=== PATIENT | male | born 1970 | race Caucasian/White ===

== ENCOUNTER 2022-03-08 07:54 | Outpatient (CLI) | payer MEDICARE, SELFPAY ==
--- NOTE | 2022-03-08 08:00 | RAD_ITS ---
PROCEDURE: Upper GI with Small Bowel Follow Through DATE OF EXAMINATION: 03/08/2022.. INDICATION: Male, 51 years old. Right-sided abdominal pain. History of ulcerations. FLUOROSCOPY TIME (if supplied): (0:34) minutes/seconds. 24 images were obtained. TECHNIQUE: Radiographic and fluoroscopic images of the distal esophagus, stomach, and entire small intestine were obtained following the oral ingestion of barium. COMPARISON: None. FINDINGS: The global climate change analyst film of the abdomen demonstrates a normal bowel gas pattern. There are no abnormal calcifications or organomegaly demonstrated. The visualized osseous structures are normal. The esophagus is unremarkable. No evidence of gastroesophageal reflux. No mass lesion is seen. A single contrast small bowel follow through exam demonstrates the small bowel to have no evidence for stricture, ulceration or mass. The transit time is normal at . RAD/Upper GI/w Small Bowel IMPRESSION: 1. Unremarkable upper GI and small bowel follow-through examination. Electronically Signed: Roni Soto MD at 15:33 EDT ,
== END 2022-03-08 23:59 | disposition home or self-care (01) ==
LOC: RAD 07:56
PROVIDERS: PCP Student in an Organized Health Care Education/Training Program; Referring Provider Nurse Practitioner; Visit Provider Nurse Practitioner
DX: R10.9 Unspecified abdominal pain (principal)
CPT/HCPCS: 74246; 74248

== ENCOUNTER 2023-05-15 06:24 | Day surgery (SDC) | payer MEDICARE, SELFPAY ==
[2023-05-15] VITALS (7 sets, daily range): BP systolic 89–133; BP diastolic 57–87; PULSE 60–68; RESP 18; TEMP 36.5–37.1; O2SAT 95–100; BMI 24.6
[2023-05-15] MEDS: Lactated Ringers 1,000 ML 15 ML IV (06:49)
--- NOTE | 2023-05-15 07:12 | PCM.HP.BLA ---
History and Physical Date of Admission: 05/15/23 52 M who presents to the office today referred by [facility] Pulmonology for GERD and dysphagia. He also reports chronic upper abd discomfort. He reports difficulty swallowing in 10/2022; feels like something gets caught in his throat. Doesn't occur with drinking, but does occur sometimes with eating, no particular foods. Doesn't vomit or regurgitate. He recalls an abnormality seen in stomach and esophagus on CT in 2021 at [facility]. Stomach issues began in 2019. He saw the BELLSTAND ATTENDANT in GI at [facility] Nadeem. Had EGD and colonoscopy in 12/2020, had stomach ulcers, was put on omeprazole (had been taken off it when he was treated for leukemia). Pt recalls being told the colonoscopy wasn't completed. EGD was repeated in 01/2021, he reports ulcers were improving. Another EGD in 2020 showed ulcers had healed. He reports no dysphagia when most recent EGD was done in 08/2022. But he was still having stomach upset; can feel almost like nausea; it is constant. The only relief he gets is from Mylanta. Even water can irritate stomach. No vomiting. Has early satiety. Gets bloated. Symptoms never resolved with treatment of PUD. Was only having a BM once a week. Mylanta helps with constipation too. Has BM 1-2x per day now, no straining, can be soft or sometimes diarrhea. 03/08/22 UGI with SBFT: normal 08/13/[address] Garcia at [facility]--normal esophagus, normal stomach, normal duodenum, no specimens collected Exam Const General: cooperative, healthy appearing and comfortable Nutritional Appearance: average body habitus Orientation: alert, awake and oriented x3 Eyes Sclera: sclerae normal Resp Effort & Inspection: normal respiratory effort GI Inspection: normal to inspection Palpation: soft, no hepatosplenomegaly, no masses and tender in the RUQ Neuro Gait: normal gait Psych Mood: congruent mood Quality Reporting Tobacco Screening ([facility] 138) Smoking Status: Current every day smoker Assessment and Plan Assessment and Plan (1) Epigastric abdominal pain: ?Status:?Chronic ?Plan: 52 yr old male with 5 mos of oropharyngeal/upper esophageal dysphagia and several years of upper abd discomfort/nausea. Only relief he gets is from Mylanta. He is on PPI. I will review CT images (he reports something was seen on esophagus and stomach in [address]), the reports from 202 EGDs and colonoscopy, gastric emptying study, labs. EGD to eval dysphagia, epigastric discomfort, office f/u after EGD. (2) Dysphagia: ?Status:?Chronic ?Plan: as above I have examined the patient and the H&P has been reviewed. There are no clinical changes since date of exam.
--- NOTE | 2023-05-15 07:30 | EGD_PTH ---
PATIENT: RUSSELL VICTORIA LOC: [facility] U#:[id number] AGE/SX: 52/M ROOM: RE05/15/[address]: Dr. Charly Parada DO : 1970 BED: DIS: 05/15/2023 SPEC #: [id number] RECD: 05/15/23 09:42 STATUS: DESIRE CAMILO #: [id number] DERRICK: 05/15/23 07:[address]: Charly Parada DEPT: SURGICAL PATHOLOGY RECD BY: Svitlana Cook ENTERED: 05/15/23 11:27 SP TYPE: EGD BIOPSY BERTHA DR: Dr. Noman Dean DO Tissues: A - Pylorus B - Duodenum, NOS Procedures: Surgery Specimen Level IV HEADER OPERATION: EGD ([facility]) with electrohemostasis and biopsies PRE-OP DIAGNOSIS: Epigastric abdominal pain, dysphagia TISSUE SUBMITTED: A ? Prepyloric ulcer biopsy, B ? Duodenum biopsy MICROSCOPIC DIAGNOSIS A. Prepyloric ulcer, biopsy: A fragment of gastric mucosa with focal ulceration and associated acute and chronic inflammation. B. Duodenum, biopsy: Fragments of duodenal mucosa, no pathologic diagnosis. LILI:christiana 05/16/2023 COMMENT A. The results of immunohistochemistry for Helicobacter pylori will be reported separately ([id number]). MICROSCOPIC DESCRIPTION Slides are reviewed. GROSS DESCRIPTION A - Received in fixative is one container labeled with the patient's name and designated prepyloric ulcer biopsy. The specimen consists of one irregular fragment of light william soft tissue that measures 0.3 x 0.3 x 0.1 cm. The specimen is totally submitted in one cassette. B - Received in fixative is one container labeled with the patient's name and designated duodenum biopsy. The specimen consists of two irregular fragments of light william soft tissue that in aggregate measure 0.8 x 0.4 x 0.1 cm. The specimen is totally submitted in one cassette. / LILI:christiana 05/15/2023 TC:2 [facility]: [id number] x2
--- NOTE | 2023-05-15 07:30 | IMM_PTH ---
PATIENT: RUSSELL VICTORIA LOC: [facility] U#:[id number] AGE/SX: 52/M ROOM: RE05/15/[address]: Dr. Charly Parada DO : 1970 BED: DIS: 05/15/2023 SPEC #: [id number] RECD: 05/15/23 12:18 STATUS: DESIRE REFrancheska #: [id number] DERRICK: 05/15/23 07:[address]: Charly Parada DEPT: IMMUNOHISTOCHEMISTRY RECD BY: Franchesca Campa ENTERED: 05/15/23 12:19 SP TYPE: IMMUNO OTHR DR: Dr. Noman Dean DO Tissues: A - Pyloric antrum Procedures: H Pylori (initial) PHYSICIAN & INSTITUTION [place] [id number] SPECIMEN INFORMATION: Tissue Source: A ? Prepyloric ulcer Clinical Info: Epigastric abdominal pain, dysphagia Specimen Number: [id number] CPT code: 62830 METHODOLOGY: Deparaffinized sections of prefer/formalin-fixed tissue or PAP/DQ stained slides are incubated with monoclonal/polyclonal antibodies/oligonucleotide probes. Localization is made via biotin free immunoperoxidase method. Appropriate controls are performed and reacted as expected. Results on target cell population are indicated in the following table: RESULTS: ANTIBODY / CLONE RESULT Block A H Pylori (polyclonal) negative These tests were developed and their performance characteristics determined by [facility]. They may not have been cleared or approved by the U.S. Food and Drug Administration. The FDA has determined that such clearance or approval is not necessary. The above immunohistochemical/dualISH markers are ordered and reviewed by the Pathologist. INTERPRETATION: A. Prepyloric ulcer, biopsy: Negative for Helicobacter pylori organisms. SJ:christiana 05/16/2023
--- NOTE | 2023-05-15 08:04 | OP.EGD_ITS ---
Patient Name: Otoniel Desai Procedure Date: 05/15/2023 7:33 AM Date of : 1970 Age: 52 Procedure: Upper GI endoscopy Indications: Epigastric abdominal pain, Dysphagia Providers: Charly Parada DO Referring MD: Charly Parada DO Patient Profile: This is a 52 year old male. Refer to note in patient chart for documentation of history and physical. Patient has symptoms. Complications: No immediate complications. Procedure: Pre-Anesthesia Assessment: - Prior to the procedure, a History and Physical was performed, and patient medications and allergies were reviewed. The risks and benefits of the procedure and the sedation options and risks were discussed with the patient. All questions were answered and informed consent was obtained. Patient identification and proposed procedure were verified by the physician. Mental Status Examination: normal. Prophylactic Antibiotics: The patient does not require prophylactic antibiotics. Prior Anticoagulants: The patient has taken no previous anticoagulant or antiplatelet agents. After reviewing the risks and benefits, the patient was deemed in satisfactory condition to undergo the procedure. The anesthesia plan was to use monitored anesthesia care (MAC). Immediately prior to administration of medications, the patient was re-assessed for adequacy to receive sedatives. The heart rate, respiratory rate, oxygen saturations, blood pressure, adequacy of pulmonary ventilation, and response to care were monitored throughout the procedure. The physical status of the patient was re-assessed after the procedure. After obtaining informed consent, the endoscope was passed under direct vision. Throughout the procedure, the patient's blood pressure, pulse, and oxygen saturations were monitored continuously. The gastroscope was introduced through the mouth, and advanced to the second part of duodenum. Scope In: 7:41:19 AM Scope Out: 7:49:26 AM Total Procedure Duration Time 0 hours 8 minutes 7 seconds Findings: One benign-appearing, intrinsic stenosis was found 20 to 21 cm from the incisors. This stenosis was moderately severe (circumferential scarring or stenosis; an endoscope may pass) and. The stenosis was traversed. A guidewire was placed and the scope was withdrawn. Dilation was performed with a Savary dilator with no resistance at 42 Fr. The dilation site was examined and showed moderate improvement in luminal narrowing. Estimated blood loss was minimal. Red blood was found in the gastric body. A few 5 mm bleeding angiodysplastic lesions were found in the cardia, in the gastric fundus and in the gastric body. Coagulation for hemostasis using monopolar probe was successful. Three oozing cratered gastric ulcers with pigmented material were found in the prepyloric region of the stomach. The largest lesion was 6 mm in largest dimension. Area was successfully injected with 5 mL of a 1:10,000 solution of epinephrine for drug delivery. Two non-bleeding cratered gastric ulcers with no stigmata of bleeding were found at the pylorus. The largest lesion was 5 mm in largest dimension. Biopsies were taken with a cold forceps for histology. Verification of patient identification for the specimen was done. Diffuse moderate inflammation characterized by erythema, friability and granularity was found in the duodenal bulb, in the first portion of the duodenum and in the second portion of the duodenum. Biopsies were taken with a cold forceps for histology. Verification of patient identification for the specimen was done. Estimated blood loss was minimal. Impression: - Benign-appearing esophageal stenosis. Dilated. - Red blood in the gastric body. - A few bleeding angiodysplastic lesions in the stomach. Treated with a monopolar probe. - Oozing gastric ulcers with pigmented material. Injected. - Non-bleeding gastric ulcers with no stigmata of bleeding. Biopsied. - Duodenitis. Biopsied. Recommendation: - Continue present medications. Procedure Code(s): --- Professional --- 69802, 59, Esophagogastroduodenoscopy, flexible, transoral; with control of bleeding, any method 85226, Esophagogastroduodenoscopy, flexible, transoral; with insertion of guide wire followed by passage of dilator(s) through esophagus over guide wire 28624, 59, Esophagogastroduodenoscopy, flexible, transoral; with directed submucosal injection(s), any substance 43528, 59,51, Esophagogastroduodenoscopy, flexible, transoral; with biopsy, single or multiple CPT copyright 2017 [employer]. All rights reserved. The codes documented in this report are preliminary and upon medical biller coder review may be revised to meet current compliance requirements. Charly Parada DO 05/15/2023 8:04:11 AM This report has been signed electronically. Number of Addenda: 0 Note Initiated On: 05/15/2023 7:33 AM
--- NOTE | 2023-05-15 08:05 | OP.CCLET_ITS ---
05/15/2023 Noman Dean [address] [place] [address] Re : Upper GI endoscopy procedure for Otoniel Desai Dear Dr. Dean This procedure was performed on May. My impressions and recommendations are as follows: Impressions : - Benign-appearing esophageal stenosis. Dilated. - Red blood in the gastric body. - A few bleeding angiodysplastic lesions in the stomach. Treated with a monopolar probe. - Oozing gastric ulcers with pigmented material. Injected. - Non-bleeding gastric ulcers with no stigmata of bleeding. Biopsied. - Duodenitis. Biopsied. Recommendations : - Continue present medications. My findings are described in the full procedure note, which is enclosed. If I can be of further assistance, please feel free to contact me at . Sincerely, Charly Parada, 05/15/2023 8:04:11 AM This report has been signed electronically.
[2023-05-15 09:48] LABS: Erythrocyte Sedimentation Rate 5 mm/hr (0-20)
[2023-05-15 09:49] LABS: International Normalized Ratio 0.9; Prothrombin Time (Protime)PT. 12.1 SECONDS (11.7-14.9)
[2023-05-15 09:50] LABS: Absolute Lymphocyte Count 4.03 X10^3/uL (0.83-4.51); Absolute Neutrophil Count 5.7 X10^3/uL (2.0-7.7); Basophil# 0.05 X10^3/uL; Basophil% 0.5 % (0-1); Eosinophils% 1.9 % (0-5); Hematocrit 47.1 % (40-54); Hemoglobin 14.7 g/dL (13.0-16.5); Lymphocyte # 4.03 X10^3/ul (0.83-4.51); Lymphocyte % 37.5 % (19-41); Mean Corp Hgb Conc 31.2 g/dL (32-36); Mean Corpuscular Hgb 28.7 pg (27.0-32.0); Mean Corpuscular Volume 91.8 fL (80-94); Monocyte# 0.67 X10^3/uL; Monocyte% 6.2 % (0-10); NRBC Flagged by Analyzer 0 % (0-5); Neutrophil # 5.72 X10^3/uL (2.7-7.7); Neutrophil % 53.2 % (47-70); Platelet Count 179 K/mm3 (150-450); RBC Distribution Width CV 14.8 % (11.6-14.6); RBC Distribution Width SD 50.2 fl (35.1-43.9); Red Blood Count 5.13 M/mm3 (4.6-6.2); White Blood Count 10.8 K/mm3 (4.4-11.0)
[2023-05-15 10:45] LABS: ALB/GLOB Ratio 1.2 RATIO (0.9-2.4); AST(SGOT) 23 U/L (15-37); Alanine Aminotransfer ALT/SGPT 28 U/L (16-61); Albumin, Serum 4.1 g/dL (3.2-5.0); Alkaline Phosphatase 94 U/L (45-117); Anion Gap 4 (5-15); BUN 15 mg/dL (7-18); BUN/Creat Ratio 12.6 RATIO (10-20); CPK Total, Creatine Kinase 125 U/L (39-308); CRP < 2.90 mg/L (0.0-3.0); Calcium,Total 9.3 mg/dL (8.5-10.1); Chloride 104 mmol/L (98-107); Creatinine, Serum 1.19 mg/dL (0.70-1.30); EST Glomerular Filtration Rate 68 mL/min (>60); Est Glom Filt Rate - Afr Amer 82 mL/min (>60); Estimated Creatinine Clearance 84.43 ml/min; Ferritin 46 ng/mL (26-388); Globulin 3.4 g/dL (2.2-4.2); Glucose 101 mg/dL (74-106); LDH 201 U/L (87-241); Potassium 4.7 mmol/L (3.5-5.1); Protein, Total 7.5 g/dL (6.4-8.2); Sodium Level 136 mmol/L (136-145)
[2023-05-15 10:59] LABS: HIV - WCH Non-Reactive (Nonreactive)
[2023-05-16 15:08] LABS: Endomysial Antibody IgA Negative (Negative); Immunoglobulin A 289 mg/dL (90-386); t-Transglutaminase IgA <2 U/mL (0-3)
[2023-05-19 18:07] LABS: Anti-Centromere B Ab <0.2 AI (0.0-0.9); Anti-Chromatin <0.2 AI (0.0-0.9); Anti-Jo <0.2 AI (0.0-0.9); Anti-Mitochondrial AB <20.0 Units (0.0-20.0); Anti-Scleroderma-70 AB <0.2 AI (0.0-0.9); Anti-dsDNA Ab 11 IU/mL (0-9); Beef <0.10 kU/L (Class 0); Chocolate <0.10 kU/L (Class 0); Clam <0.10 kU/L (Class 0); Codfish <0.10 kU/L (Class 0); Corn <0.10 kU/L (Class 0); Egg, White <0.10 kU/L (Class 0); Egg, Whole <0.10 kU/L (Class 0); Milk (Cow) <0.10 kU/L (Class 0); Peanut <0.10 kU/L (Class 0); Pork <0.10 kU/L (Class 0); RNP Ab <0.2 AI (0.0-0.9); SESAME SEED <0.10 kU/L (Class 0); SJOGREN'S Anti-SS-A test < 0.2 AI (0.0-0.9); SJOGREN'S Anti-SS-B test < 0.2 AI (0.0-0.9); Shrimp 0.41 kU/L (Class I); Smith Ab <0.2 AI (0.0-0.9); Soybean <0.10 kU/L (Class 0); Walnut, (Food) <0.10 kU/L (Class 0); Wheat <0.10 kU/L (Class 0)
[2023-05-19 21:07] LABS: Albumin 3.9 g/dL (2.9-4.4); Aldolase 4.7 U/L (3.3-10.3); Alpha-1-Globulins 0.3 g/dL (0.0-0.4); Alpha-2-Globulins 0.9 g/dL (0.4-1.0); Angiotensin Convert Enzyme 36 U/L (14-82); Anti-Smooth Muscle ABS 3 Units (0-19); Cytoplasmic Ab (C-ANCA) <1:20 titer (Neg:<1:20); Gamma Globulin 0.7 g/dL (0.4-1.8); Gastrin, Serum 94 pg/mL (0-115); HEPATITIS B SURFACE AG Negative (Negative); Hep C Antibodies Non Reactive (Non Reactive); Hepatitis A IgM Antibody Negative (Negative); Hepatitis B Core AB IgM Negative (Negative); Immunoglobulin A 296 mg/dL (90-386); Immunoglobulin E 38 IU/mL (6-495); Immunoglobulin G 502 mg/dL (603-1613); Immunoglobulin M 28 mg/dL (20-172); Perinuclear Ab (P-ANCA) 1:20 titer (Neg:<1:20)
== END 2023-05-15 08:55 | disposition home or self-care (01) ==
LOC: EN 06:24 → AC 06:25
PROVIDERS: PCP Student in an Organized Health Care Education/Training Program; Referring Provider Student in an Organized Health Care Education/Training Program; Visit Provider Internal Medicine Gastroenterology
PROC: 0DJ08ZZ Inspection of Upper Intestinal Tract, Via Natural or Artificial Opening Endoscopic (ICD-10-PCS; CPT 43235; principal; 2023-05-15 07:25)
DX: K31.811 Angiodysplasia of stomach and duodenum with bleeding (principal); M06.9 Rheumatoid arthritis, unspecified; K25.9 Gastric ulcer, unspecified as acute or chronic, without hemorrhage or perforation; R13.10 Dysphagia, unspecified; K29.80 Duodenitis without bleeding; K22.2 Esophageal obstruction; F17.200 Nicotine dependence, unspecified, uncomplicated; R10.13 Epigastric pain; R11.0 Nausea; Z85.6 Personal history of leukemia; Z92.241 Personal history of systemic steroid therapy; Z79.899 Other long term (current) drug therapy; K59.00 Constipation, unspecified; G89.29 Other chronic pain; I10 Essential (primary) hypertension
CPT/HCPCS: 43248; 43239; 43255; 36415; 80053; 80074; 82085; 82164; 82550; 82728; 82784; 82785; 82941; 83516; 83615; 84165; 85025; 85610; 85652; 86003; 86005; 86140; 86225; 86235; 86255; 86256; 86334; 86703; 88305; 88342; J7120; J2405

== ENCOUNTER → 2024-01-07 | Outpatient (CLI) | payer MEDICARE, SELFPAY ==
--- NOTE | 2024-01-07 12:41 | NM_ITS ---
CLINICAL: 53-year-old male with history of epigastric pain. SEMI-SOLID PHASE 99m Tc SULFUR COLLOID GASTRIC EMPTYING STUDY COMPARISON: None available FINDINGS: The patient was administered 1.0 mCi of 99m Tc sulfur colloid mixed with oatmeal and consumed per os. Image acquisitions in the anterior-posterior projections were obtained for 60 minutes. There is prompt visualization of the stomach. There is no gastroesophageal reflux identified. The T ? raw data emptying was calculated to be 43.84 minutes, (Normal: 12-56 minutes). NM/Gastric Emptying Study IMPRESSION: 1. NORMAL 99m Tc sulfur colloid semi-solid phase (oatmeal) gastric emptying imaging examination. A. There is normal and preserved semi-solid phase gastric emptying compared to normal controls. (Brain et al, J Nucl Med Tech 38: 186, 2010). Electronically Signed: Ulysses Pradhan DO at 9:29 EST ,
== END | disposition home or self-care (01) ==
LOC: NM 12:41
PROVIDERS: PCP Student in an Organized Health Care Education/Training Program; Referring Provider Internal Medicine Gastroenterology; Visit Provider Internal Medicine Gastroenterology
DX: R10.13 Epigastric pain (principal)
CPT/HCPCS: 78264; A9541

== ENCOUNTER 2024-01-12 06:40 | Day surgery (SDC) | payer MEDICARE, SELFPAY ==
--- OUTSIDE RECORDS SUMMARY | 2024-01-12 06:48 | XMS RPT_ITS | CCD ---
Author Name Unknown Address [id number] [place] [address] Organization [facility] Care Team Providers Care Laundry Housekeeping Aide Name Role Phone Noman Dean DO Primary Care Provider JERSEY COLE Admitting Unavailable JERSEY COLE Attending Unavailable DEAN, NOMAN Oliva Primary Care Unavailable TESTSHYANN CAPONE Admitting Unavailable TESTSHYANN CAPONE Attending Unavailable DEAN, NOMAN Hazel Primary Care Unavailable JERSEY COLE Admitting Unavailable JERSEY COLE Attending Unavailable DEAN, NOMAN Hazel Primary Care Unavailable Dean Noman AZEVEDO Primary Care Provider Florina AZEVEDO Otoniel A Unavailable Abigail CROSS, Harriett Arrieta Unavailable Doup RN, Ros Unavailable Unavailable Doup RN, Ros Unavailable Unavailable DEAN, NOMAN L Primary Care Unavailable DEAN, NOMAN L Attending Unavailable DEAN, NOMAN L Primary Care Unavailable DEAN, NOMAN L Referring Unavailable DEAN, NOMAN L Primary Care Unavailable DEAN, NOMAN L Referring Unavailable MASCI, OTONIEL A Attending Unavailable MARIAI, OTONIEL A Referring Unavailable DEAN, NOMAN L Primary Care Unavailable DEAN, NOMAN L Primary Care Unavailable DEAN, NOMAN L Referring Unavailable DEAN, NOMAN L Primary Care Unavailable DEAN, NOMAN L Referring Unavailable ANDREY ART Referring Unavailable DEAN, NOMAN L Primary Care Unavailable MASCI, OTONIEL A Attending Unavailable MASCI, OTONIEL A Referring Unavailable DEAN, NOMAN L Primary Care Unavailable DEAN, NOMAN L Primary Care Unavailable DEAN, NOMAN L Referring Unavailable DEAN, NOMAN L Primary Care Unavailable DEAN, NOMAN L Attending Unavailable MARIAI, OTONIEL A Referring Unavailable DEAN, NOMAN L Primary Care Unavailable MASCI, OTONIEL A Referring Unavailable DEAN, NOMAN L Primary Care Unavailable MASCI, OTONIEL A Attending Unavailable MASCI, OTONIEL A Referring Unavailable DEAN, NOMAN L Primary Care Unavailable ANDREY ART Attending Unavailable DEAN, NOMAN L Primary Care Unavailable MASCI, OTONIEL A Referring Unavailable DEAN, NOMAN L Primary Care Unavailable MASCI, OTONIEL A Referring Unavailable DEAN, NOMAN L Primary Care Unavailable MASCI, OTONIEL A Referring Unavailable DEAN, NOMAN L Primary Care Unavailable MASCI, OTONIEL A Referring Unavailable MASCI, OTONIEL A Attending Unavailable DEAN, NOMAN L Primary Care Unavailable ONDINA ARBOLEDA Referring Unavailable ONDINA ARBOLEDA Attending Unavailable DEAN, NOMAN L Primary Care Unavailable DEAN, NOMAN L Primary Care Unavailable MCKENNA GARCIA Referring Unavailable MASCI, OTONIEL A Referring Unavailable DEAN, NOMAN L Primary Care Unavailable DEAN, NOMAN L Primary Care Unavailable MASCI, OTONIEL A Referring Unavailable DEAN, NOMAN L Primary Care Unavailable ANDREY ART Referring Unavailable DEAN, NOMAN L Primary Care Unavailable KNOBLE, ANDREY Referring Unavailable DEAN, NOMAN L Primary Care Unavailable DEAN, NOMAN L Attending Unavailable DEAN, NOMAN L Primary Care Unavailable MASCI, OTONIEL A Referring Unavailable DEAN, NOMAN L Primary Care Unavailable Allergies Allergy Classification Reported Allergen(s) Allergy Type Date of Onset Reaction(s) Facility (20 sources) Aspirin; Translations: [ASPIRIN] Drug Allergy 3 GI Upset [facility] (20 sources) Penicillins; Translations: [PENICILLINS] Drug Allergy 5 [facility] (20 sources) Pollen; Translations: [POLLEN] Allergy to substance 4 Itching [facility] (20 sources) topiramate; Translations: [TOPIRAMATE] Drug Allergy 2 Other: See Comments [facility] (20 sources) Penicillins Drug Allergy 5 [facility] (20 sources) Shellfish; Translations: [SHELLFISH DERIVED] Propensity to adverse reactions to drug 3 Unknown [facility] Medications Current Medications Medication Drug Class(es) Dates Sig (Normalized) Sig (Original) acetaminophen 325 mg / HYDROcodone bitartrate 5 mg oral tablet (20 sources) Opioid Agonist Start: 08-27-2023 End: 01-23-2024 take 1 tablet by mouth twice daily as needed for pain HYDROcodone-aceta minophen (NORCO) 5-325 mg per tablet Indications: Multiple sclerosis (HCC) , Bilateral leg pain Take 1 tablet by mouth two times a day as needed for pain for up to 30 days. Do not start before December 24, 2023. 60 tablet 0 12/24/2023 01/23/2024 Active Completed/Discontinued Medications Medication Drug Class(es) Dates Sig (Normalized) Sig (Original) [id number] 200 actuat albuterol 0.09 mg/actuat metered dose inhaler (20 sources) beta2-Adrenergic Agonist Start: 11-21-2023 take 2 puff(s) by inhalation every four hours as needed for wheezing albuterol HFA (VENTOLIN HFA) 90 mcg/actuation inhaler Indications: Stage 2 moderate COPD by GOLD classification ([facility]) INHALE 2 PUFFS INSTRUCTED EVERY FOUR HOURS NEEDED FOR WHEEZING / SHORTNESS OF BREATH 18 g 11 11/21/2023 Active Problems Active Problems Problem Classification Problem Date Documented Da te Episodic/Chronic Aortic; peripheral; and visceral artery aneurysms (20 sources) Distention of artery; 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] Onset: 2 02-04-2022 Chronic Blindness and vision defects (4 sources) Bilateral myopia of eyes; Translations: [Myopia, bilateral] Episodic Chronic obstructive pulmonary disease and bronchiectasis (20 sources) Chronic obstructive lung disease; Translations: [Chronic obstructive pulmonary disease, unspecified] Onset: 9 04-19-2019 Chronic Coagulation and hemorrhagic disorders (2 sources) Spontaneous bruising; Translations: [Spontaneous ecchymoses] Episodic Disorders of lipid metabolism (20 sources) Hyperlipidemia; Translations: [Other hyperlipidemia] Onset: 8 01-07-2018 Chronic Disorders usually diagnosed in infancy, childhood, or adolescence (20 sources) Attention deficit hyperactivity disorder, predominantly inattentive type; Translations: [Other specified behavioral and emotional disorders with onset usually occurring in childhood and adolescence] Onset: 8 01-07-2018 Chronic Esophageal disorders (20 sources) Gastroesophageal reflux disease without esophagitis; Translations: [Gastro-esophageal reflux disease without esophagitis] Onset: 8 01-07-2018 Chronic Essential hypertension (20 sources) Benign essential hypertension; Translations: [Essential (primary) hypertension] Onset: 2 02-04-2022 Chronic Gastroduodenal ulcer (except hemorrhage) (4 sources) H/O: peptic ulcer; Translations: [Personal history of peptic ulcer disease] Episodic Genitourinary symptoms and ill-defined conditions (20 sources) Intermittent urinary incontinence; Translations: [Unspecified urinary incontinence] Onset: 4 03-02-2014 Chronic Headache; including migraine (20 sources) Migraine; Translations: [Migraine, unspecified, not intractable, without status migrainosus] Onset: 3 02-05-2013 Chronic Immunity disorders (20 sources) Patient immunocompromised; Translations: [Immunodeficiency, unspecified] Onset: 3 Chronic Immunizations and screening for infectious disease (2 sources) Needs influenza immunization; Translations: [Encounter for immunization] Episodic Leukemias (20 sources) Chronic myeloid leukemia; Translations: [Chronic myeloid leukemia, BCR/ABL-positive, not having achieved remission] Onset: 5 02-13-2015 Chronic Mood disorders (20 sources) Bipolar affective disorder, current episode mixed; Translations: [Bipolar disorder, current episode mixed, unspecified] Onset: 8 01-07-2018 Chronic Multiple myeloma (6 sources) Multiple myeloma; Translations: [Multiple myeloma not having achieved remission] Onset: 3 10-10-2023 Chronic Multiple sclerosis (20 sources) Multiple sclerosis; Translations: [Multiple sclerosis] Onset: 6 02-04-2022 Chronic Neoplasms of unspecified nature or uncertain behavior (20 sources) Monoclonal gammopathy of uncertain significance; Translations: [Monoclonal gammopathy] Onset: 5 02-13-2015 Chronic Nutritional deficiencies (20 sources) Vitamin D deficiency; Translations: [Vitamin D deficiency, unspecified] Onset: 9 04-19-2019 Chronic Open wounds of extremities (1 source) Open wound of toe; Translations: [Unspecified open wound of unspecified toe(s) without damage to nail, initial encounter] Episodic Osteoarthritis (20 sources) Arthritis of left knee; Translations: [Unilateral primary osteoarthritis, left knee] Onset: 2 02-13-2022 Chronic Other and unspecified benign neoplasm (1 source) Benign neoplasm of skin of back; Translations: [Melanocytic nevi of trunk] Episodic Other and unspecified benign neoplasm (3 sources) Dysplastic nevus of trunk; Translations: [Melanocytic nevi of trunk] Episodic Other and unspecified benign neoplasm (1 source) Dysplastic nevus of skin; Translations: [Melanocytic nevi of trunk] Episodic Other and unspecified benign neoplasm (1 source) Melanocytic nevus of trunk; Translations: [Melanocytic nevi of trunk] Episodic Other circulatory disease (1 source) Carotid bruit; Translations: [Other specified symptoms and signs involving the circulatory and respiratory systems] Episodic Other connective tissue disease (1 source) Lateral epicondylitis of left humerus; Translations: [Lateral epicondylitis, left elbow] Episodic Other connective tissue disease (1 source) Radial styloid tenosynovitis; Translations: [Radial styloid tenosynovitis [de Quervain]] Episodic Other connective tissue disease (2 sources) Lateral epicondylitis of right humerus; Translations: [Lateral epicondylitis, right elbow] Episodic Other connective tissue disease (1 source) Lateral epicondylitis, right elbow; Translations: [Right lateral epicondylitis] Onset: 2 Episodic Other connective tissue disease (1 source) Lateral epicondylitis, left elbow; Translations: [Lateral epicondylitis of left elbow] Onset: 2 Episodic Other diseases of bladder and urethra (20 sources) Overactive bladder; Translations: [Overactive bladder] Onset: 2 10-23-2022 Chronic Other eye disorders (2 sources) Meibomian gland dysfunction of bilateral eyes; Translations: [Meibomian gland dysfunction right eye, upper and lower eyelids] Episodic Other gastrointestinal disorders (3 sources) Chronic idiopathic constipation; Translations: [Chronic idiopathic constipation] Chronic Other gastrointestinal disorders (1 source) Dysphagia; Translations: [Dysphagia, unspecified] Episodic Other hereditary and degenerative nervous system conditions (20 sources) Restless legs; Translations: [Restless legs syndrome] Onset: 9 04-19-2019 Chronic Other liver diseases (20 sources) Steatosis of liver; Translations: [Fatty (change of) liver, not elsewhere classified] Onset: 2 12-18-2011 Chronic Other lower respiratory disease (2 sources) Wheezing; Translations: [Wheezing] Episodic Other lower respiratory disease (1 source) Dyspnea; Translations: [Dyspnea, unspecified] Episodic Other lower respiratory disease (4 sources) Imaging of lung abnormal ; Translations: [Other nonspecific abnormal finding of lung field] Episodic Other lower respiratory disease (1 source) Tachypnea; Translations: [Tachypnea, not elsewhere classified] 06-26-2023 Episodic Other lower respiratory disease (5 sources) Dyspnea on exertion; Translations: [Other forms of dyspnea] Onset: 3 10-10-2023 Episodic Other male genital disorders (20 sources) Male erectile dysfunction, unspecified; Translations: [Impotence of organic origin] Onset: 0 07-04-2010 Chronic Other nervous system disorders (6 sources) Impairment of balance; Translations: [Other abnormalities of gait and mobility] Onset: 3 Episodic Other nervous system disorders (1 source) Other abnormalities of gait and mobility; Translations: [Balance disorder] Onset: 3 Episodic Other non-traumatic joint disorders (2 sources) Chronic pain of left upper limb; Translations: [Pain in left elbow] Episodic Other non-traumatic joint disorders (1 source) Pain in elbow; Translations: [Pain in left elbow] Episodic Other non-traumatic joint disorders (1 source) Chronic pain of right upper limb; Translations: [Pain in right elbow] Episodic Other nutritional; endocrine; and metabolic disorders (1 source) Hypercalcemia; Translations: [Hypercalcemia] 06-17-2023 Chronic Other nutritional; endocrine; and metabolic disorders (1 source) Hypercalcemia; Translations: [Hypercalcemia] Onset: 3 Chronic Peripheral and visceral atherosclerosis (20 sources) Peripheral vascular disease, unspecified; Translations: [Peripheral vascular disease, unspecified] Onset: 2 Chronic Residual codes; unclassified (20 sources) Idiopathic hypersomnia; 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] Onset: 5 03-15-2015 Chronic Residual codes; unclassified (1 source) Tobacco user; Translations: [Tobacco use] Episodic Residual codes; unclassified (1 source) Did not attend; Translations: [No-show for appointment] Episodic Schizophrenia and other psychotic disorders (20 sources) Schizophrenia; Translations: [Schizophrenia, unspecified] Onset: 2 02-04-2022 Chronic Spondylosis; intervertebral disc disorders; other back problems (2 sources) Neck pain; Translations: [Cervicalgia] Episodic Thyroid disorders (6 sources) Acquired hypothyroidism; Translations: [Hypothyroidism, unspecified] Onset: 3 10-10-2023 Chronic Past or Other Problems Problem Classification Problem Date Documented Da te Episodic/Chronic Abdominal pain (20 sources) Generalized abdominal pain; Translations: [Generalized abdominal pain] Onset: 01-07-2018 01-07-2018 Episodic Administrative/social admission (20 sources) Drug therapy finding; Translations: [Encounter for other administrative examinations] Onset: 01-19-2020 01-19-2020 Episodic Allergic reactions (20 sources) Hand eczema; Translations: [Dermatitis, unspecified] Onset: 02-05-2013 02-05-2013 Episodic Cardiac dysrhythmias (20 sources) Tachycardia; Translations: [Tachycardia, unspecified] Onset: 04-10-2007 04-10-2007 Episodic Diabetes mellitus without complication (2 sources) Hyperglycemia; Translations: [Hyperglycemia, unspecified] Onset: 06-18-2023 Episodic Malaise and fatigue (9 sources) Fatigue; Translations: [Other fatigue] Onset: 10-06-2023 Episodic Mycoses (20 sources) Onychomycosis; Translations: [Tinea unguium] Onset: 02-04-2022 02-04-2022 Episodic Nonspecific chest pain (10 sources) Chest pain; Translations: [Chest pain, unspecified] Onset: 06-26-2023 Episodic Nutritional deficiencies (20 sources) Cobalamin deficiency; Translations: [Deficiency of other specified B group vitamins] Onset: 08-14-2022 Episodic Other and unspecified benign neoplasm (20 sources) History of polyp of colon; Translations: [Personal history of colonic polyps] Onset: 08-05-2018 08-05-2018 Episodic Other bone disease and musculoskeletal deformities (20 sources) Disorder of bone; Translations: [Other specified disorders of bone density and structure, multiple sites] Onset: 08-14-2022 Episodic Other connective tissue disease (20 sources) Olecranon bursitis; Translations: [Olecranon bursitis, unspecified elbow] Onset: 06-27-2015 06-27-2015 Episodic Other connective tissue disease (20 sources) Pain in bilateral legs; Translations: [Pain in right leg] Onset: 01-07-2018 01-07-2018 Episodic Other connective tissue disease (20 sources) Lateral epicondylitis of bilateral humerus; Translations: [Lateral epicondylitis, right elbow] Onset: 02-13-2022 02-13-2022 Episodic Other connective tissue disease (20 sources) Suprapatellar bursitis of left knee; Translations: [Other bursitis of knee, left knee] Onset: 02-13-2022 02-13-2022 Episodic Other connective tissue disease (1 source) Pain in right leg; Translations: [Bilateral leg pain] Onset: 01-07-2018 Episodic Other connective tissue disease (1 source) Pain in left leg; Translations: [Bilateral leg pain] Onset: 01-07-2018 Episodic Other gastrointestinal disorders (20 sources) Splenomegaly; Translations: [Splenomegaly, not elsewhere classified] Onset: 12-30-2020 12-30-2020 Episodic Other lower respiratory disease (1 source) Other forms of dyspnea; Translations: [KNOX (dyspnea on exertion)] Onset: 10-06-2023 Episodic Other lower respiratory disease (1 source) Tachypnea, not elsewhere classified; Translations: [Tachypnea] Onset: 06-26-2023 Episodic Other non-traumatic joint disorders (20 sources) Bilateral elbow joint pain; Translations: [Pain in right elbow] Onset: 02-13-2022 Episodic Other non-traumatic joint disorders (20 sources) Pain in left knee; Translations: [Pain in joint, lower leg] Onset: 04-18-2016 02-13-2022 Episodic Other screening for suspected conditions (not mental disorders or infectious disease) (6 sources) Patient encounter status; Translations: [Encounter for screening for cardiovascular disorders] Onset: 06-23-2023 Episodic Residual codes; unclassified (20 sources) Family history of prostate cancer; Translations: [Family history of malignant neoplasm of prostate] Onset: 02-05-2013 02-05-2013 Episodic Residual codes; unclassified (20 sources) Tobacco use and exposure - finding; Translations: [Tobacco use] Onset: 07-18-2015 07-18-2015 Episodic Skin and subcutaneous tissue infections (20 sources) Disorder of nail; Translations: [Cellulitis of unspecified toe] Onset: 04-16-2012 04-16-2012 Episodic Results Test Name Value Interpretation Reference Range Facil ity Vital Signs Date Time Vital Sign Value Performing Clinician Doretha leal 11-05-2023 09:57-0500 Body temperature 98.2 [degF] Noman Dean DO Work Phone: [facility] 11-05-2023 09:57-0500 Body weight 89.81 kg Noman Dean DO Work Phone: [facility] 11-05-2023 09:57-0500 Diastolic blood pressure 70 mm[Hg] Noman Dean DO Work Phone: [facility] 11-05-2023 09:57-0500 Heart rate 76 /min Noman Dean DO Work Phone: [facility] 11-05-2023 09:57-0500 Respiratory rate 16 /min Noman Dean DO Work Phone: [facility] 11-05-2023 09:57-0500 Systolic blood pressure 110 mm[Hg] Noman Dean DO Work Phone: [facility] 09-18-2023 11:54-0400 Body temperature 98.29 [degF] Otoniel Masci DO Work Phone: [facility] 09-18-2023 11:54-0400 Body weight 93.89 kg Otoniel Masci DO Work Phone: [facility] 09-18-2023 11:54-0400 Diastolic blood pressure 82 mm[Hg] Otoniel Masci DO Work Phone: [facility] 09-18-2023 11:54-0400 Heart rate 68 /min Otoniel Masci DO Work Phone: [facility] 09-18-2023 11:54-0400 SaO2% (BldA) [Mass fraction] 98 % Otoniel Masci DO Work Phone: [facility] 09-18-2023 11:54-0400 Systolic blood pressure 135 mm[Hg] Otoniel Masci DO Work Phone: [facility] 06-26-2023 15:07-0400 Body weight 89.81 kg Andrey Art DIE CUTTING MACHINE OPERATOR.SANDWICH COUNTER ATTENDANT Work Phone: [facility] 06-26-2023 15:07-0400 Diastolic blood pressure 66 mm[Hg] Andrey Art DIE CUTTING MACHINE OPERATOR.SANDWICH COUNTER ATTENDANT Work Phone: [facility] 06-26-2023 15:07-0400 Heart rate 74 /min Andrey Art DIE CUTTING MACHINE OPERATOR.SANDWICH COUNTER ATTENDANT Work Phone: [facility] 06-26-2023 15:07-0400 Respiratory rate 16 /min Andrey Art DIE CUTTING MACHINE OPERATOR.SANDWICH COUNTER ATTENDANT Work Phone: [facility] 06-26-2023 15:07-0400 Systolic blood pressure 120 mm[Hg] Andrey Art DIE CUTTING MACHINE OPERATOR.SANDWICH COUNTER ATTENDANT Work Phone: [facility] 03-28-2023 08:55-0400 Body temperature 96.49 [degF] Noman Dean DO Work Phone: [facility] 03-28-2023 08:55-0400 Body weight 90.27 kg Noman Dean DO Work Phone: [facility] 03-28-2023 08:55-0400 Diastolic blood pressure 60 mm[Hg] Noman Dean DO Work Phone: [facility] 03-28-2023 08:55-0400 Heart rate 76 /min Noman Dean DO Work Phone: [facility] 03-28-2023 08:55-0400 Respiratory rate 16 /min Noman Dean DO Work Phone: [facility] 03-28-2023 08:55-0400 Systolic blood pressure 110 mm[Hg] Nmoan Dean DO Work Phone: [facility] 03-24-2023 09:38-0400 Body height 183.3 cm Otoniel Masci DO Work Phone: [facility] 03-24-2023 09:38-0400 Body weight 90.49 kg Otoniel Masci DO Work Phone: [facility] 03-24-2023 09:38-0400 Diastolic blood pressure 69 mm[Hg] Otoniel Masci DO Work Phone: [facility] 03-24-2023 09:38-0400 Heart rate 67 /min Otoniel Masci DO Work Phone: [facility] 03-24-2023 09:38-0400 SaO2% (BldA) [Mass fraction] 99 % Otoniel Masci DO Work Phone: [facility] 03-24-2023 09:38-0400 Systolic blood pressure 111 mm[Hg] Otoniel Masci DO Work Phone: [facility] 01-03-2023 13:42-0500 Body height 188 cm Pulm Wstr Work Phone: [facility] 01-03-2023 13:42-0500 Body weight 90.72 kg Pulm Wstr Work Phone: [facility] 12-31-2022 08:28-0500 Body temperature 98.01 [degF] Noman Dean DO Work Phone: [facility] 12-31-2022 08:28-0500 Body weight 89.81 kg Noman Dean DO Work Phone: [facility] 12-31-2022 08:28-0500 Diastolic blood pressure 80 mm[Hg] Noman Dean DO Work Phone: [facility] 12-31-2022 08:28-0500 Heart rate 64 /min Noman Dean DO Work Phone: [facility] 12-31-2022 08:28-0500 Respiratory rate 16 /min Noman Dean DO Work Phone: [facility] 12-31-2022 08:28-0500 Systolic blood pressure 120 mm[Hg] Noman Dean DO Work Phone: [facility] 12-25-2022 14:59-0500 Body weight 89.36 kg Harriett Hayes PA-C Work Phone: [facility] 12-25-2022 14:59-0500 Diastolic blood pressure 60 mm[Hg] Harriett Abigail PA-C Work Phone: [facility] 12-25-2022 14:59-0500 Heart rate 67 /min Harriett Abigail PA-C Work Phone: [facility] 12-25-2022 14:59-0500 Respiratory rate 18 /min Harriett Abigail PA-C Work Phone: [facility] 12-25-2022 14:59-0500 SaO2% (BldA) [Mass fraction] 97 % Harriett Abigail PA-C Work Phone: [facility] 12-25-2022 14:59-0500 Systolic blood pressure 100 mm[Hg] Harriett Abigail PA-C Work Phone: [facility] 11-12-2022 08:55-0500 Body temperature 98.6 [degF] Noman Dean DO Work Phone: [facility] 11-12-2022 08:55-0500 Body weight 89.36 kg Noman Dean DO Work Phone: [facility] 11-12-2022 08:55-0500 Diastolic blood pressure 60 mm[Hg] Noman Dean DO Work Phone: [facility] 11-12-2022 08:55-0500 Heart rate 80 /min Noman Dean DO Work Phone: [facility] 11-12-2022 08:55-0500 Respiratory rate 16 /min Noman Dean DO Work Phone: [facility] 11-12-2022 08:55-0500 Systolic blood pressure 100 mm[Hg] Noman Dean DO Work Phone: [facility] 09-16-2022 15:14-0400 Body temperature 98.01 [degF] Otoniel Masci DO Work Phone: [facility] 09-16-2022 15:14-0400 Body weight 88 kg Otoniel Masci DO Work Phone: [facility] 09-16-2022 15:14-0400 Diastolic blood pressure 80 mm[Hg] Otoniel Heaton DO Work Phone: [facility] 09-16-2022 15:14-0400 Heart rate 62 /min Otoniel Heaton DO Work Phone: [facility] 09-16-2022 15:14-0400 Systolic blood pressure 123 mm[Hg] Otoniel Heaton DO Work Phone: [facility] 08-13-2022 17:30-0400 Diastolic blood pressure 52 mm[Hg] Trenton Garcia MD Work Phone: [facility] 08-13-2022 17:30-0400 Heart rate 63 /min Trenton Garcia MD Work Phone: [facility] 08-13-2022 17:30-0400 Respiratory rate 16 /min Trenton Garcia MD Work Phone: [facility] 08-13-2022 17:30-0400 SaO2% (BldA) [Mass fraction] 99 % Trenton Garcia MD Work Phone: [facility] 08-13-2022 17:30-0400 Systolic blood pressure 105 mm[Hg] Trenton Garcia MD Work Phone: [facility] 08-13-2022 17:16-0400 Body temperature 97.5 [degF] Trenton Garcia MD Work Phone: [facility] 08-13-2022 16:35-0400 Body height 188 cm Trenton Garcia MD Work Phone: [facility] 08-13-2022 16:35-0400 Body weight 83.92 kg Trenton Garcia MD Work Phone: [facility] 08-13-2022 08:34-0400 Body temperature 97 [degF] Noman Dean DO Work Phone: [facility] 08-13-2022 08:34-0400 Body weight 84.82 kg Noman Dean DO Work Phone: [facility] 08-13-2022 08:34-0400 Diastolic blood pressure 80 mm[Hg] Noman Dean DO Work Phone: [facility] 08-13-2022 08:34-0400 Heart rate 68 /min Noman Dean DO Work Phone: [facility] 08-13-2022 08:34-0400 Respiratory rate 16 /min Noman Dean DO Work Phone: [facility] 08-13-2022 08:34-0400 Systolic blood pressure 120 mm[Hg] Noman Dean DO Work Phone: [facility] 05-22-2022 10:27-0400 Body temperature 98.8 [degF] Otoniel Masci DO Work Phone: [facility] 05-22-2022 10:27-0400 Body weight 82.56 kg Otoniel Masci DO Work Phone: [facility] 05-22-2022 10:27-0400 Diastolic blood pressure 69 mm[Hg] Otoniel Masci DO Work Phone: [facility] 05-22-2022 10:27-0400 Heart rate 70 /min Otoniel Masci DO Work Phone: [facility] 05-22-2022 10:27-0400 SaO2% (BldA) [Mass fraction] 98 % Otoniel Masci DO Work Phone: [facility] 05-22-2022 10:27-0400 Systolic blood pressure 121 mm[Hg] Otoniel Masci DO Work Phone: [facility] 05-21-2022 11:33-0400 Body weight 82.56 kg Ny Rodriguez DIE CUTTING MACHINE OPERATOR.SANDWICH COUNTER ATTENDANT Work Phone: [facility] 05-21-2022 11:33-0400 Diastolic blood pressure 70 mm[Hg] Ny Rodriguez DIE CUTTING MACHINE OPERATOR.SANDWICH COUNTER ATTENDANT Work Phone: [facility] 05-21-2022 11:33-0400 Heart rate 76 /min Ny Rodriguez DIE CUTTING MACHINE OPERATOR.SANDWICH COUNTER ATTENDANT Work Phone: [facility] 05-21-2022 11:33-0400 SaO2% (BldA) [Mass fraction] 98 % Ny Rodriguez DIE CUTTING MACHINE OPERATOR.SANDWICH COUNTER ATTENDANT Work Phone: [facility] 05-21-2022 11:33-0400 Systolic blood pressure 120 mm[Hg] Nysly Rodriguez DIE CUTTING MACHINE OPERATOR.SANDWICH COUNTER ATTENDANT Work Phone: [facility] 05-13-2022 13:30-0400 Body temperature 98.4 [degF] Noman Dean DO Work Phone: [facility] 05-13-2022 13:30-0400 Body weight 81.19 kg Noman Dean DO Work Phone: [facility] 05-13-2022 13:30-0400 Diastolic blood pressure 70 mm[Hg] Noman Dean DO Work Phone: [facility] 05-13-2022 13:30-0400 Heart rate 80 /min Noman Dean DO Work Phone: [facility] 05-13-2022 13:30-0400 Respiratory rate 16 /min Noman Dean DO Work Phone: [facility] 05-13-2022 13:30-0400 Systolic blood pressure 130 mm[Hg] Noman Dean DO Work Phone: [facility] Encounters Encounter Date Encounter Type Care Provider Facility Start: 01-02-2024 [facility] Procedures Date Procedure Procedure Detail Performing Clinician Start: 06-18-2023 Lipid 1996 [facility]-18-[facility]23 BRAIN & CERVICAL SPI NE MRI DISCRETE DATA [facility] Provider Start: 03-18-2023 Mri brain brain stem w/o w/contrast material Mckenna Garcia PA-C Work Phone: Start: 11-18-2022 Ct thorax w/o contra st material Noman Oliva Dean DO Work Phone: Start: 09-02-2022 Dxa bone density yumiko dy 1/> sites axial skel Noman Oliva Dean DO Work Phone: Start: 08-13-2022 Esophagoscp rig lopez soral hypopharynx crv esoph Ny Rodriguez DIE CUTTING MACHINE OPERATOR.SANDWICH COUNTER ATTENDANT Work Phone: Start: 08-13-2022 INFLUENZA VACCINE QUADRIVALENT 6 MO - 64 YRS IM Noman Dean DO Work Phone: Start: 07-25-2022 Computerized ophthal sindy imaging retina Ondina Arboleda OD Work Phone: Start: 06-07-2022 Adult depression scr eening assessment Noman Dean DO Work Phone: Start: 05-20-2022 Adult depression scr eening assessment Ny Rodriguez DIE CUTTING MACHINE OPERATOR.SANDWICH COUNTER ATTENDANT Work Phone: Start: 05-17-2022 Radiologic exam ches t 2 views Otoniel Heaton DO Work Phone: Start: 05-14-2022 Ct soft tissue neck w/o contrast material Noman Dean DO Work Phone: Start: 04-15-2022 BRAIN & CERVICAL SPI NE MRI DISCRETE DATA [facility] Provider Start: 04-15-2022 Mri brain brain stem w/o w/contrast material Mckenna Garcia PA-C Work Phone: Start: 04-13-2022 Adult depression scr eening assessment Mri (I-Stat/3t) Work Phone: Start: 04-08-2022 Myocardial spect mul tiple studies Noman Dean DO Work Phone: Start: 04-04-2022 Injection single ten don origin/insertion Jersey Cole MD Work Phone: Start: 04-02-2022 Radex elbow 2 views Bra ganesh Cole MD Work Phone: Start: 02-13-2022 Adult depression scr eening assessment Jersey Cole MD Work Phone: Start: 12-26-2020 Joleen chapman MD Work Phone: Plan of Treatment Date Care Activity Detail Author Start: 2035 PNEUMOCOCCAL (4 - PPSV23 if available, else PCV20) PNEUMOCOCCAL (4 - PPSV23 if available, else PCV20) [facility] Start: 2035 PNEUMOCOCCAL (4 - PPSV23 or PCV20) PNEUMOCOCCAL (4 - PPSV23 or PCV20) [facility] Start: 2035 Pneumococcal vaccination [facility] Start: 06-18-2028 Lipid 1996 panel - Serum or Plasma Lipid Screening [facility] Start: 06-18-2028 Lipid panel Lipid Screening [facility] Start: 06-18-2028 LIPID SCREEN LIPID SCREEN [facility] Start: 01-23-2027 LIPID SCREEN LIPID SCREEN [facility] Start: 12-12-2026 Diabetes Screening Diabetes Screening [facility] Start: 10-15-2026 Diabetes Screening Diabetes Screening [facility] Start: 10-06-2026 Diabetes Screening Diabetes Screening [facility] Start: 09-10-2026 Diabetes Screening Diabetes Screening [facility] Start: 08-18-2026 Diabetes Screening Diabetes Screening [facility] Start: 06-18-2026 DIABETES SCREEN DIABETES SCREEN [facility] Start: 06-16-2026 DIABETES SCREEN DIABETES SCREEN [facility] Start: 03-17-2026 DIABETES SCREEN DIABETES SCREEN [facility] Start: 12-26-2025 Colonoscopy COLONOSCOPY [facility] Start: 12-26-2025 COLORECTAL CANCER SCREENING COLORECTAL CANCER SCREENING [facility] Start: 12-26-2025 Screening for malignant neoplasm of colon [facility] Start: 12-16-2025 DIABETES SCREEN DIABETES SCREEN [facility] Start: 09-02-2025 DIABETES SCREEN DIABETES SCREEN [facility] Start: 08-13-2025 DIABETES SCREEN DIABETES SCREEN [facility] Start: 05-17-2025 DIABETES SCREEN DIABETES SCREEN [facility] Start: 05-13-2025 DIABETES SCREEN DIABETES SCREEN [facility] Start: 01-23-2025 DIABETES SCREEN DIABETES SCREEN [facility] Start: 12-19-2024 BP Controlled (<130/80) BP Controlled (<130/80) [facility] Start: 11-05-2024 Annual PCP Team Chronic Disease Visit Annual PCP Team Chronic Disease Visit [facility] Start: 11-05-2024 BP Controlled (<130/80) BP Controlled (<130/80) [facility] Start: 10-06-2024 Annual PCP Team Chronic Disease Visit Annual PCP Team Chronic Disease Visit [facility] Start: 06-26-2024 ANNUAL PCP TEAM CHRONIC DISEASE VISIT ANNUAL PCP TEAM CHRONIC DISEASE VISIT [facility] Start: 06-26-2024 BP CONTROLLED (<130/80) BP CONTROLLED (<130/80) [facility] Start: 06-23-2024 BP CONTROLLED (<130/80) BP CONTROLLED (<130/80) [facility] Start: 03-28-2024 ANNUAL PCP TEAM CHRONIC DISEASE VISIT ANNUAL PCP TEAM CHRONIC DISEASE VISIT [facility] Start: 03-28-2024 BP CONTROLLED (<130/80) BP CONTROLLED (<130/80) [facility] Start: 03-24-2024 BP CONTROLLED (<130/80) BP CONTROLLED (<130/80) [facility] Start: 12-31-2023 ANNUAL PCP TEAM CHRONIC DISEASE VISIT ANNUAL PCP TEAM CHRONIC DISEASE VISIT [facility] Start: 12-25-2023 BP CONTROLLED (<130/80) BP CONTROLLED (<130/80) [facility] Start: 12-01-2023 Depression Assessment Depression Assessment [facility] Start: 11-18-2023 Influenza vaccination LUNG CANCER SCREENING [facility] Start: 11-12-2023 ANNUAL PCP TEAM CHRONIC DISEASE VISIT ANNUAL PCP TEAM CHRONIC DISEASE VISIT [facility] Start: 11-12-2023 BP CONTROLLED (<130/80) BP CONTROLLED (<130/80) [facility] Start: 10-23-2023 BP CONTROLLED (<130/80) BP CONTROLLED (<130/80) [facility] Start: 09-08-2023 End: 11-08-2023 BCR/ABL1 P210 QUANTITATIVE PCR BLOOD BCR/ABL1 P210 QUANTITATIVE PCR BLOOD Lab Routine CML (chronic myeloid leukemia) (HCC) Smoldering myeloma Expected: 09/08/2023, Expires: 11/08/2023 [facility] Work Phone: Immunizations Immunization Date Immunization Notes Care Provider Erik turner 09-18-2023 influenza, injectabl e, quadrivalent, preservative free Otoniel Heaton DO Work Phone: [facility] 08-13-2022 influenza, injectabl e, quadrivalent, contains preservative Trenton Garcia MD Work Phone: [facility] Work Phone: 08-13-2022 influenza virus vacc ine, unspecified formulation Oleksandr Pilch [facility] 09-25-2021 COVID-19 vaccine, ag e 12+ yr (PFIZER-BIONTECH - PURPLE TOP) Jersey Cole MD Work Phone: [facility] 08-29-2021 influenza, injectabl e, quadrivalent, contains preservative Jersey Cole MD Work Phone: [facility] 08-28-2021 COVID-19 vaccine, ag e 12+ yr (PFIZER-BIONTECH - PURPLE TOP) Jersey Cole MD Work Phone: [facility] 08-07-2021 COVID-19 vaccine, ag e 12+ yr (PFIZER-BIONTECH - PURPLE TOP) Jersey Cole MD Work Phone: [facility] 03-03-2021 zoster vaccine recombinant Jersey Cole MD Work Phone: [facility] Work Phone: 01-01-2021 zoster vaccine recombinant Jersey Cole MD Work Phone: [facility] Work Phone: 09-13-2020 influenza, injectabl e, quadrivalent, contains preservative Jersey Cole MD Work Phone: [facility] 09-13-2020 pneumococcal conjuga te vaccine, 13 valent Jersey Cole MD Work Phone: [facility] 09-14-2019 influenza, injectabl e, quadrivalent, contains preservative Jersey Cole MD Work Phone: [facility] 10-07-2018 influenza, injectabl e, quadrivalent, contains preservative Jersey Cole MD Work Phone: [facility] Work Phone: 10-07-2018 pneumococcal polysaccharide vaccine, 23 valent Jersey Cole MD Work Phone: [facility] Work Phone: 10-07-2017 influenza, injectabl e, quadrivalent, contains preservative Jersey Cole MD Work Phone: [facility] Work Phone: 08-14-2016 influenza, injectabl e, quadrivalent, contains preservative Jersey Cole MD Work Phone: [facility] 08-31-2015 influenza, injectabl e, quadrivalent, contains preservative Jersey Cole MD Work Phone: [facility] 09-14-2014 influenza, seasonal, injectable Jersey Cole MD Work Phone: [facility] 09-04-2013 influenza virus vacc ine, unspecified formulation Jersey Cole MD Work Phone: [facility] Work Phone: 04-27-2013 tetanus and diphther ia toxoids, adsorbed, preservative free, for adult use (2 Lf of tetanus toxoid and 2 Lf of diphtheria toxoid) Jersey Cole MD Work Phone: [facility] 08-22-2012 influenza virus vacc ine, unspecified formulation Jersey Cole MD Work Phone: [facility] Work Phone: 09-07-2011 influenza virus vacc ine, unspecified formulation Jersey Cole MD Work Phone: [facility] Work Phone: 09-14-2010 influenza virus vacc ine, unspecified formulation Jersey Cole MD Work Phone: [facility] 11-13-2009 novel influenza-H1N1 -09, all formulations Jersey Cole MD Work Phone: [facility] Work Phone: 10-23-2009 pneumococcal polysaccharide vaccine, 23 valent Jersey Cole MD Work Phone: [facility] 08-23-2009 influenza virus vacc ine, unspecified formulation Jersey Cole MD Work Phone: [facility] 09-23-2008 influenza virus vacc ine, unspecified formulation Jersey Cole MD Work Phone: [facility] Work Phone: 10-14-2007 influenza virus vacc ine, unspecified formulation Jersey Cole MD Work Phone: [facility] Work Phone: 12-01-2001 diphtheria and tetan us toxoids, adsorbed for pediatric use Jersey Cole MD Work Phone: [facility] Work Phone: Payers Date Payer Category Payer Medicare MEDICARE MEDICAR E A AND B [id number] 2008-Present [phone] [place] [address] Medicare [id number] 2008 Medicare MEDICARE MEDICAR E A AND B [id number] 2008-Present [phone] [place] [address] Medicare [id number] 2008 Medicare [id number] Social History Date Type Detail Facility Start: 07-19-2021 Tobacco smoking stat us DEIS Light tobacco smoker [facility] History of tobacco use Cigarette Smoker [facility] Start: 07-19-2021 End: 04-23-2023 Cigarettes smoked current (pack per day) - Reported 1 [facility] Start: 07-19-2021 End: 12-19-2023 Tobacco use and exposure Smokeless tobacco non-user [facility] Start: 02-13-2022 End: 12-19-2023 Alcohol intake Ex-drinker (finding) [facility] Start: 06-26-2020 End: 09-13-2020 History SDOH Alcohol Frequency 1 [facility] Start: 06-26-2020 End: 11-12-2022 History SDOH Alcohol Std Drinks 98 [facility] Start: 01-18-2020 End: 11-29-2020 History SDOH Social Connections Phone 2 [facility] Start: 01-18-2020 End: 11-12-2022 History SDOH Social Connections Living 3 [facility] Start: 01-18-2020 History SDOH Physica l Activity DPW 0 [facility] Start: 01-18-2020 Education 10 [facility] Start: 07-18-2021 Tobacco Comment Pt has cut tequila k to 1 cigarette daily. [facility] Start: 1970 Sex Assigned At Male [facility] Start: 02-08-2022 End: 10-30-2022 Exposure to SARS-CoV-2 (event) Not sure [facility] Start: 09-16-2022 End: 12-19-2023 Tobacco smoking status NHIS Smokes tobacco daily [facility] Start: 09-16-2022 Tobacco Comment Pt has cut tequila k to 5 cigarettes daily. [facility] Start: 12-17-2022 Tobacco Comment Started age 18 [facility] Start: 11-11-2022 End: 04-23-2023 Social connection and isolation panel [facility] In a typical week, h ow many times do you talk on the telephone with family, friends, or neighbors? Patient refused [facility] Are you now , , , , never or living with a partner? Refused [facility] The food that (I/we) bought just didn't last, and (I/we) didn't have money to get more. DK or Refused [facility] Start: 04-19-2019 Gender identity Identifies as male gender (finding) [facility] Start: 04-19-2019 Sexual orientation Heterosexual (richard benitez) [facility] Medical Equipment Procedure Code Equipment Code Equipment Origin al Text Equipment Identifier Dates 1 Syringe as directed. Start: 11-05-2023 Clinical Notes 03-31-2019 to 01-02-2024 Staci Moore - 01/02/2024 11:37 AM ESTTelephone Encounter - Jodee Plata MA - 11/13/2023 11:19 AM ESTTelephone Encounter - Vashti Jiménez LPN - 11/13/2023 9:53 AM ESTPatient Instructions Note Date & Type Note Facility 01-02-2024 History of Present illness Narrative [facility] Ref[facility] Assessment Medication(s): Scemblix Patient's current medication list and adherence status to current therapy were reviewed by Specialty Pharmacy clinical pharmacist to identify any new drug interactions or non-compliance to therapy. Therapy continues to be appropriate for disease, patient response, and medical condition. Verification of therapeutic benefit and effectiveness with current therapy was completed. Adverse events, barriers in adherence, and side effects were assessed and addressed if applicable. Will proceed with refill with no changes in therapy - patient progressing towards achieving therapeutic goals based on medication-specific laboratory parameters, disease state markers and outcomes. Mechanical Developer Prover Assessment Patient confirmed: Yes Med/dose confirmed: Yes Supplies needed: No supplies needed Missed doses: No Estimated days supply on hand: 8 Copay amount: 0 Payment confirmed: Yes Delivery method: FedEx Signature required: Waived on patient request Delivery address: [address] [place] [address] Delivery date: 01/06/24 Questions or concerns for the pharmacist?: No [facility] Specialty Pharmacy Visit Assessment - Hematology/Oncology: Assessment to use: Refill Vaccination Assessment: Date of influenza vaccination reminder: 08/21/2023 Date of most recent vaccination assessment: 08/21/2023 Treatment Plan Information: Treatment Plan Information: 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 Avoid food 2 hours prior and 1 hour after taking Admin/Storage: Administer on an empty stomach; avoid food for at least 2 hours before and 1 hour after asciminib administration. If administering once daily, administer at approximately the same time each day; if administering twice daily, administer approximately every 12 hours. Swallow tablets whole; do not break, crush, or chew. Dispense and store in original container to protect from moisture. D/I: No major Warnings: Bone marrow suppression, cardiovascular toxicity, GI toxicity (pancreatitis), hypersensitivity HTN A/E: HTN, rash, diarrhea, increased lipase, nausea, URTI, decreased serum calcium/phosphate, increase triglycerides/cholesterol/uric acid Lab/Monitoring: CBC every 2 weeks for the first 3 months and monthly thereafter or as clinically necessary serum lipase and amylase levels monthly or as clinically necessary Estimated Start Date Info: Per Dr Otoniel Heaton Discretion Estimated Treatment Duration: Until progression or toxicity Staci Moore documented in this encounter [facility] 11-13-2023 Miscellaneous Notes Patient active MyChart. Patient notified via [employer] message. Jodee Plata MA Left message to return call. Please inform patient that his 2 nevi removed from his back only showed mild atypical features as below. No further testing needed on these 2 areas. Noman Dean DO A. 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 B. 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 documented in this encounter [facility] 11-05-2023 History of Present illness Narrative CC: Otoniel Desai is a 53 year old male who presents to the office for mole removal HPI: Here for mole removal in the office today. Has been found to have some atypical nevi at recent last OFFICE VISIT. He is on immune modulator medication for his monoclonal disorder per Oncologist. Otherwise no sun exposure. Vitamin b12 deficiency, he is willing to start injections, willing for to give these to him at home since she has done this before with his MS medication. PAST MEDICAL HISTORY Diagnosis Date ADHD (attention deficit hyperactivity disorder) Arrhythmia Arthritis Bipolar 1 disorder ([facility]) Dr. Eas[facility] Chronic obstructive pulmonary disease ([facility]) 04/19/2019 Chronic obstructive pulmonary disease ([facility]) CML (chronic myeloid leukemia) ([facility]) 02/13/2015 Dr. 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 Vasquez Neurologist Multiple sclerosis ([facility]) 10/2005 Dr. Mauricio Vasquez Neurologist Osteoarthritis of left knee 01/2022 Other symptoms involving abdomen and pelvis(789.9) Palpitations Schizophrenia ([facility]) Dr. Easley [facility] Snoring Substance abuse rule out 03/15/2015 Syncope Tobacco abuse PAST SURGICAL HISTORY Procedure Laterality Date BONE MARROW BIOPSY 12/2015 COLONOSCOPY FLX DX W/COLLJ SPEC WHEN PFRMD 07/22/2012 Colonoscopy repeat 3 years-requires MAC anesthesia COLONOSCOPY FLX DX W/COLLJ SPEC WHEN PFRMD 07/26/2015 Colonoscopy-pt requires MAC COLONOSCOPY SCRN NOT HIGH RISK 12/26/2020 COLONOSCOPY W/BIOPSY SINGLE/MULTIPLE 05/29/2006 repeat in 10 yrs EGD 12/26/2020 EGD 02/15/2021 ESOPHAGOGASTRODUODENOSCOPY TRANSORAL DIAGNOSTIC 02/03/2012 EGD ESOPHAGOGASTRODUODENOSCOPY TRANSORAL DIAGNOSTIC 02/07/2016 EGD ESOPHAGOGASTRODUODENOSCOPY TRANSORAL DIAGNOSTIC 05/01/2021 PAST SURGICAL HISTORY OF bladder growth- benign PAST SURGICAL HISTORY OF 2015 removal skin cancer right side neck TNOT ELBOW LATERAL/MEDIAL DEBRIDE OPEN Left 08/23/2022 Left elbow lateral epicondyle/tendon debridement TNOT ELBOW LATERAL/MEDIAL DEBRIDE OPEN Right 10/30/2022 Right elbow lateral epicondyle/tendon debridement TONSILLECTOMY HX Current Outpatient Medications Medication Sig asciminib (SCEMBLIX) 40 mg tablet Take 2 tablets (80 mg) by mouth once daily on an empty stomach. Avoid food 2 hours prior and 1 hour after taking [START ON 11/25/2023] amphetamine-dextroamphetamine XR (ADDERALL XR) 30 mg capsule Take 1 capsule by mouth once daily for 30 days. Do not start before November 25, 2023. [START ON 11/25/2023] dextroamphetamine-amphetamine (ADDERALL) 10 mg tablet Take 1 tablet by mouth once daily for 30 days. In the afternoon as needed for concentration impairment Do not start before November 25, 2023. [START ON 12/24/2023] HYDROcodone-acetaminophen (NORCO) 5-325 mg per tablet Take 1 tablet by mouth two times a day as needed for pain for up to 30 days. Do not start before December 24, 2023. [START ON 11/25/2023] HYDROcodone-acetaminophen (NORCO) 5-325 mg per tablet Take 1 tablet by mouth two times a day as needed for pain for up to 30 days. Do not start before November 25, 2023. HYDROcodone-acetaminophen (NORCO) 5-325 mg per tablet Take 1 tablet by mouth two times a day as needed for pain for up to 30 days. Do not start before October 27, 2023. amphetamine-dextroamphetamine XR (ADDERALL XR) 30 mg capsule Take 1 capsule by mouth once daily for 30 days. Do not start before October 27, 2023. dextroamphetamine-amphetamine (ADDERALL) 10 mg tablet Take 1 tablet by mouth once daily for 30 days. In the afternoon as needed for concentration impairment Do not start before October 27, 2023. [START ON 12/24/2023] dextroamphetamine-amphetamine (ADDERALL) 10 mg tablet Take 1 tablet by mouth once daily for 30 days. In the afternoon as needed for concentration impairment Do not start before December 24, 2023. [START ON 12/24/2023] amphetamine-dextroamphetamine XR (ADDERALL XR) 30 mg capsule Take 1 capsule by mouth once daily for 30 days. Do not start before December 24, 2023. gemfibrozil (LOPID) 600 mg tablet Take 1 tablet by mouth two times a day. gabapentin (NEURONTIN) 600 mg tablet Take 1 tablet by mouth three times daily for 90 days. atenolol (TENORMIN) 25 mg tablet Take 1 tablet by mouth once daily. oxybutynin ER (DITROPAN XL) 15 mg 24 hr Extended Rel Tab Take 1 tablet by mouth once daily. omeprazole (PRILOSEC) 40 mg capsule Take 1 capsule by mouth once daily. linaCLOtide (LINZESS) 72 mcg capsule take 1 capsule by mouth every morning ON AN EMPTY STOMACH 30 MINUTES before EATING ANYTHING -- SWALLOW WHOLE; DO NOT CRUSH OR CHEW (Patient taking differently: Take 1 capsule by mouth once daily. 290mg tablet take 1 capsule by mouth every morning ON AN EMPTY STOMACH 30 MINUTES before EATING ANYTHING -- SWALLOW WHOLE; DO NOT CRUSH OR CHEW) PEG 400-propylene glycol (SYSTANE ULTRA) 0.4-0.3 % ophthalmic solution Use 1 Drop in both eyes twice daily. ANORO ELLIPTA 62.5-25 mcg/actuation inhaler inhale 1 puff by mouth and INTO THE LUNGS once daily albuterol HFA (VENTOLIN HFA) 90 mcg/actuation inhaler INHALE 2 PUFFS INSTRUCTED EVERY FOUR HOURS NEEDED FOR WHEEZING / SHORTNESS OF BREATH diclofenac (VOLTAREN) 1 % topical gel apply 2 grams TO AFFTECTED AREA three times a day dicyclomine (BENTYL) 20 mg tablet Take 1 tablet by mouth three times daily. Cholecalciferol, Vitamin D3, (VITAMIN D-3) 50 mcg (2,000 unit) cap Take 1 capsule by mouth once daily. lactobacillus rhamnosus (CULTURELLE) 15 billion cell capsule Take 1 capsule by mouth once daily. lamoTRIgine (LAMICTAL) 200 mg tablet Take 1 tablet by mouth once daily. ARIPiprazole (ABILIFY) 5 mg tablet Take 1 tablet by mouth once daily. vilazodone (VIIBRYD) 40 mg tablet Take 40 mg by mouth once daily. Syringe with Needle, Disp, 1 mL 25 gauge x 1 syrg 1 Syringe as directed. cyanocobalamin 1,000 mcg/mL Inject 1 ml IM once a week x 4 weeks then 1 ml IM every other week for 8 weeks then 1 ml IM once a month Current Facility-Administered Medications Medication Dose Route Frequency perflutren lipid microspheres 1.3 mL in NaCl (PF) 0.9% 10 mL injection (DEFINITY) INTRAVENOUS DIRECTED PRN sodium chloride 0.9 % (flush) 10 mL (BD POSIFLUSH) 10 mL INTRAVENOUS DIRECTED PRN ALLERGIES Allergen Reactions Aspirin GI Upset Penicillins Hives Pollen Itching Topamax [Topiramate] Other: See Comments Severe migraines Shellfish Derived Unknown Was told per Friend needs an Epi pen for this allergy per lab work Social History Tobacco Use Smoking status: Every Day Packs/day: 0.50 Years: 34.00 Additional pack years: 0.00 Total pack years: 17.00 Types: Cigarettes Smokeless tobacco: Never Tobacco comments: Started age 18 Vaping Use Vaping Use: Never used Substance Use Topics Alcohol use: Not Currently Drug use: No ROS: See HPI PE: BP 110/70 Pulse 76 Temp (Src) 98.2 (Left Tympanic) Resp 16 Wt 198 lb (89.8kg) Gen: A&OX3, NAD, non-toxic appearing Skin: atypical nevus x 1 on left upper back level of T7 and lateral at 2 x 2 mm in size and irregular border. Atypical nevus x 1 on left flank at 3 x 3 mm size with irregular border and at the level of L1 laterally INFORMED CONSENT Otoniel Desai Medical Record: [id number] Date: 11/05/2023 Procedure: shave biopsy atypical nevus x 2 as above The risks, benefits and anticipated outcomes of the procedure, the risks and benefits of the alternatives to the procedure and the roles and tasks of the personnel to be involved were discussed with the patient and the patient consents to the procedure and agrees to proceed. I verify that I personally obtained Otoniel Desai's consent. Noman Dean DO [facility] Risks, benefits, and alternatives discussed. Informed consent obtained. The area was cleaned and prepped in a sterile fashion. 2 specimen(s) sent for pathology. Written and Verbal wound care instructions given. ASSESSMENT/PLAN: 1. Vitamin B12 deficiency - ICD9: 266.2, ICD10: E53.8 (primary diagnosis) Start on rx as below, f/u in office in 3-6 months - SYRINGE WITH NEEDLE 1 ML 25 GAUGE X 1 - CYANOCOBALAMIN (VIT B-12) 1,000 MCG/ML INJECTION SOLUTION 2. Atypical nevus of left upper back excluding scapular region - ICD9: 216.5, ICD10: D22.5 Removed by shave biopsy, no complications, aware of care after procedure. - SURGICAL PATHOLOGY 3. Atypical nevus of left lower back - ICD9: 216.5, ICD10: D22.5 Removed by shave biopsy, no complications, aware of care after procedure. - SURGICAL PATHOLOGY Noman Dean DO Return if no improvement. Follow up with Noman Dean DO. To ER if develops chest pain, shortness of breath. Discussed risks, benefits, alternatives, and potential side effects of medications. Patient/Guardian expressed understanding and agreed with the plan. See patient instructions. Noman Dean DO [address] [place] [address] documented in this encounter [facility] 11-05-2023 Instructions Noman Dean DO - 11/05/2023 10:38 AM EST Change dressing at 2 mole removal sites, once a day, apply Vaseline or Aquafor ointment and a bandaid Start vitamin B12 injections at home, let me know if any concerns. Can use in thigh,buttock or arm documented in this encounter [facility] 11-05-2023 History of Present illness Narrative [facility] Refill Assessment Medication(s): Scemblix 40mg Patient's current medication list and adherence status to current therapy were reviewed by Specialty Pharmacy clinical pharmacist to identify any new drug interactions or non-compliance to therapy. Therapy continues to be appropriate for disease, patient response, and medical condition. Verification of therapeutic benefit and effectiveness with current therapy was completed. Adverse events, barriers in adherence, and side effects were assessed and addressed if applicable. Will proceed with refill with no changes in therapy - patient progressing towards achieving therapeutic goals based on medication-specific laboratory parameters, disease state markers and outcomes. Mechanical Developer Prover Assessment Patient confirmed: Yes Med/dose confirmed: Yes Supplies needed: No supplies needed Missed doses: No Estimated days supply on hand: 6 Copay amount: 0 Payment confirmed: Yes Delivery method: FedEx Signature required: Waived on patient request Delivery address: [address] [place] [address] [place], [address] Delivery date: 11/10/23 Questions or concerns for the pharmacist?: No [facility] Visit Assessment - Hematology/Oncology: Assessment to use: Refill Vaccination Assessment: Date of influenza vaccination reminder: 08/21/2023 Date of most recent vaccination assessment: 08/21/2023 Treatment Plan Information: Treatment Plan Information: 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 Avoid food 2 hours prior and 1 hour after taking Admin/Storage: Administer on an empty stomach; avoid food for at least 2 hours before and 1 hour after asciminib administration. If administering once daily, administer at approximately the same time each day; if administering twice daily, administer approximately every 12 hours. Swallow tablets whole; do not break, crush, or chew. Dispense and store in original container to protect from moisture. D/I: No major Warnings: Bone marrow suppression, cardiovascular toxicity, GI toxicity (pancreatitis), hypersensitivity HTN A/E: HTN, rash, diarrhea, increased lipase, nausea, URTI, decreased serum calcium/phosphate, increase triglycerides/cholesterol/uric acid Lab/Monitoring: CBC every 2 weeks for the first 3 months and monthly thereafter or as clinically necessary serum lipase and amylase levels monthly or as clinically necessary Estimated Start Date Info: Per Dr Otoniel Heaton Discretion Estimated Treatment Duration: Until progression or toxicity Belle Qureshi documented in this encounter [facility] 10-13-2023 History of Present illness Narrative [facility] Refill Assessment Medication(s): scemblix Patient's current medication list and adherence status to current therapy were reviewed by Specialty Pharmacy clinical pharmacist to identify any new drug interactions or non-compliance to therapy. Therapy continues to be appropriate for disease, patient response, and medical condition. Verification of therapeutic benefit and effectiveness with current therapy was completed. Adverse events, barriers in adherence, and side effects were assessed and addressed if applicable. Will proceed with refill with no changes in therapy - patient progressing towards achieving therapeutic goals based on medication-specific laboratory parameters, disease state markers and outcomes. Mechanical Developer Prover Assessment Patient confirmed: Yes Med/dose confirmed: Yes Supplies needed: No supplies needed Missed doses: No Estimated days supply on hand: 5 Copay amount: 0 Payment confirmed: Yes Delivery method: FedEx Signature required: Waived on patient request Delivery address: [address] [place] [address] [place] [id number] Delivery date: 10/15/23 Questions or concerns for the pharmacist?: No [facility] Visit Assessment - Hematology/Oncology: Assessment to use: Refill Vaccination Assessment: Date of influenza vaccination reminder: 08/21/2023 Date of most recent vaccination assessment: 08/21/2023 Treatment Plan Information: Treatment Plan Information: 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 Avoid food 2 hours prior and 1 hour after taking Admin/Storage: Administer on an empty stomach; avoid food for at least 2 hours before and 1 hour after asciminib administration. If administering once daily, administer at approximately the same time each day; if administering twice daily, administer approximately every 12 hours. Swallow tablets whole; do not break, crush, or chew. Dispense and store in original container to protect from moisture. D/I: No major Warnings: Bone marrow suppression, cardiovascular toxicity, GI toxicity (pancreatitis), hypersensitivity HTN A/E: HTN, rash, diarrhea, increased lipase, nausea, URTI, decreased serum calcium/phosphate, increase triglycerides/cholesterol/uric acid Lab/Monitoring: CBC every 2 weeks for the first 3 months and monthly thereafter or as clinically necessary serum lipase and amylase levels monthly or as clinically necessary Estimated Start Date Info: Per Dr Otoniel Heaton Discretion Estimated Treatment Duration: Until progression or toxicity Bairon Bell documented in this encounter [facility] 10-06-2023 Note HNO ID: [id number] Author: Noman Dean, DO Service: ? Author Type: Physician Type: Progress Notes Filed: 10/10/2023 8:20 AM Note Text: CC: Otoniel Desai is a 53 year old male who presents to the office for follow up HPI: GERD and epigastric pain, Had recent scope by Dr. Parada Gastroenterology, whom performed EGD in May and had testing done. Was found now to be allergic to shellfish and also concerns for potential ulcers again starting. Has had chronic symptoms. Was told to stop the omeprazole medication at that time but Dr. Heaton Sewing Room Supervisor due to concerns that his ulcerations will reoccur due to the chemo medication. Is going to be seeing Dr. Parada Gastroenterology to determine next steps and likely need for repeat EGD since abdominal / esophageal symptoms are continuing. He continues to have intermittent fatigue, dyspnea with walking and going up and down steps and chest pressure with these activities as well. He hasn't completed his nuclear stress testing. Not able to use treadmill due to MS and poor balance CML and smoldering myeloma. Just recently had his medication changed in May due to the interaction between this medication and the omeprazole medication. ADHD, taking adderall XR in the morning. Sometimes feels his symptoms aren't well enough controlled in the afternoon/evening. Wondering if dose adjustment can be made. Denies any SE from medication. Chronic b/l leg pain and MS, taking Larose as prescribed, tolerating well. Helps with ADLs and IADLs with dressing, bathing, gait, daily functioning. No new SE with medication. He is needing medications refilled. Depression, anxiety, bipolar, stable, seeing Psychiatrist. PAST MEDICAL HISTORY Diagnosis Date ADHD (attention deficit hyperactivity disorder) Arrhythmia Arthritis Bipolar 1 disorder ([facility]) Dr. Easley [facility] Chronic obstructive pulmonary disease ([facility]) 04/19/2019 Chronic obstructive pulmonary disease ([facility]) CML (chronic myeloid leukemia) ([facility]) 02/13/2015 Dr. 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 Vasquez Neurologist Multiple sclerosis ([facility]) 10/2005 Dr. Mauricio Vasquez Neurologist Osteoarthritis of left knee 01/2022 Other symptoms involving abdomen and pelvis(789.9) Palpitations Schizophrenia ([facility]) Dr. Easley [facility] Snoring Substance abuse rule out 03/15/2015 Syncope Tobacco abuse PAST SURGICAL HISTORY Procedure Laterality Date BONE MARROW BIOPSY 12/2015 COLONOSCOPY FLX DX W/COLLJ SPEC WHEN PFRMD 07/22/2012 Colonoscopy repeat 3 years-requires MAC anesthesia COLONOSCOPY FLX DX W/COLLJ SPEC WHEN PFRMD 07/26/2015 Colonoscopy-pt requires MAC COLONOSCOPY SCRN NOT HIGH RISK 12/26/2020 COLONOSCOPY W/BIOPSY SINGLE/MULTIPLE 05/29/2006 repeat in 10 yrs EGD 12/26/2020 EGD 02/15/2021 ESOPHAGOGASTRODUODENOSCOPY TRANSORAL DIAGNOSTIC 02/03/2012 EGD ESOPHAGOGASTRODUODENOSCOPY TRANSORAL DIAGNOSTIC 02/07/2016 EGD ESOPHAGOGASTRODUODENOSCOPY TRANSORAL DIAGNOSTIC 05/01/2021 PAST SURGICAL HISTORY OF bladder growth- benign PAST SURGICAL HISTORY OF 2014 removal skin cancer right side neck TNOT ELBOW LATERAL/MEDIAL DEBRIDE OPEN Left 08/23/2022 Left elbow lateral epicondyle/tendon debridement TNOT ELBOW LATERAL/MEDIAL DEBRIDE OPEN Right 10/30/2022 Right elbow lateral epicondyle/tendon debridement TONSILLECTOMY HX Current Outpatient Medications Medication Sig dextroamphetamine-amphetamine (ADDERALL) 10 mg tablet Take 1 tablet by mouth once daily for 30 days. In the afternoon as needed for concentration impairment amphetamine-dextroamphetamine XR (ADDERALL XR) 30 mg capsule Take 1 capsule by mouth once daily for 30 days. HYDROcodone-acetaminophen (NORCO) 5-325 mg per tablet Take 1 tablet by mouth two times a day as needed for pain for up to 30 days. gemfibrozil (LOPID) 600 mg tablet Take 1 tablet by mouth two times a day. gabapentin (NEURONTIN) 600 mg tablet Take 1 tablet by mouth three times daily for 90 days. atenolol (TENORMIN) 25 mg tablet Take 1 tablet by mouth once daily. oxybutynin ER (DITROPAN XL) 15 mg 24 hr Extended Rel Tab Take 1 tablet by mouth once daily. omeprazole (PRILOSEC) 40 mg capsule Take 1 capsule by mouth once daily. asciminib (SCEMBLIX) 40 mg tablet Take 2 tablets (80 mg) by mouth once daily on an empty stomach. Avoid food 2 hours prior and 1 hour after taking ANORO ELLIPTA 62.5-25 mcg/actuation inhaler inhale 1 puff by mouth and INTO THE LUNGS once daily albuterol HFA (VENTOLIN HFA) 90 mcg/actuation inhaler INHALE 2 PUFFS INSTRUCTED EVERY FOUR HOURS NEEDED FOR WHEEZING / SHORTNESS OF BREATH diclofenac (VOLTAREN) 1 % topical gel apply 2 grams TO AFFTECTED AREA three times a day dicyclomine (BENTYL) 20 mg tablet Take 1 tablet (more content not included)... [facility] 09-26-2023 Miscellaneous Notes Called pt and notified RX were sent to the pharmacy. PDMP website checked and validated. All prescriptions have been APPROPRIATELY filled. No suspicious activity was identified. 09/26/2023 by Maria Dolores Randall APRN.[facility] The following approved medication requests have been transmitted electronically. Requested Prescriptions Signed Prescriptions Disp Refills dextroamphetamine-amphetamine (ADDERALL) 10 mg tablet 30 tablet 0 Sig: Take 1 tablet by mouth once daily for 30 days. In the afternoon as needed for concentration impairment Authorizing Provider: RANDALL, MARIA DOLORES amphetamine-dextroamphetamine XR (ADDERALL XR) 30 mg capsule 30 capsule 0 Sig: Take 1 capsule by mouth once daily for 30 days. Authorizing Provider: MARIA DOLORES RANDALL HYDROcodone-acetaminophen (NORCO) 5-325 mg per tablet 60 tablet 0 Sig: Take 1 tablet by mouth two times a day as needed for pain for up to 30 days. Authorizing Provider: MARIA DOLORES RANDALL APRN.SANDWICH COUNTER ATTENDANT Patient needs these meds by Friday. Patient has been identified by name and date of : Yes, Provider Dr. Dean Date 09/23/23 Time 0925 Patient phones for refill(s): Requested Prescriptions Pending Prescriptions Disp Refills dextroamphetamine-amphetamine (ADDERALL) 10 mg tablet 30 tablet 0 Sig: Take 1 tablet by mouth once daily for 30 days. In the afternoon as needed for concentration impairment amphetamine-dextroamphetamine XR (ADDERALL XR) 30 mg capsule 30 capsule 0 Sig: Take 1 capsule by mouth once daily for 30 days. HYDROcodone-acetaminophen (NORCO) 5-325 mg per tablet 60 tablet 0 Sig: Take 1 tablet by mouth two times a day as needed for pain for up to 30 days. Date of last office visit in primary care: 06/26/2023 Date of next office visit in primary care: 10/06/2023 Last 2 Encounter Wt Readings: Date: Wt: 09/18/2023 93.9 kg (207 lb) 06/26/2023 89.8 kg (198 lb) Previous labs/tests for medication: Liver Function: ALT (U/L) Date Value 09/10/2023 18 01/16/2022 14 AST (U/L) Date Value 09/10/2023 22 01/16/2022 21 Please advise. Thank you. Lucinda Meier RN. documented in this encounter [facility] 09-19-2023 Miscellaneous Notes SOCIAL WORK FOLLOW UP NOTE: [facility] CENTER Date of service: Tuesday September 19, 2023 [facility] Behavioral Intervention Specialist (SW) Harriett Youngblood attempted to contact Otoniel Desai by phone to complete the distress assessment. Otoniel has been diagnosed with Chronic Myeloid Leukemia. He flagged for moderate depression on 09-18-23. PHQ-9 12/31/2022 06/23/2023 09/18/2023 Score 9 15 12 SW left a message and asked for a return call. SW will continue to follow to provide emotional support to patient/family, and place referrals to community resources as needed. Unable To Reach Patient F/U APPOINTMENT: SHAHRIAR Lewis, covering for JONH Sharma documented in this encounter [facility] 09-18-2023 Note HNO ID: [id number] Author: Otoniel Heaton, DO Service: ? Author Type: Physician Type: Progress Notes Filed: 09/18/2023 5:03 PM Note Text: Diagnosis: 1) CML chronic phase 2) MGUS HPI: The patient is a 53 yo male who has h/o MS (exacerbating/remitting type; previous medications for MS: Avonex (2005), IV Steroids (2005) and PO Steroids (taper was rough, IV no issues). Currently on Tecfidera (May 2013). Symptoms from MS had been very stable since starting Tecfidera. Had several episodes syncope since July of 2014. See cardiology note for full history. Around the time of the first syncopal event, he started having a sensation of tightness in the hands b/l. No paresthesia or numbness. Toes had same feeling but got a sensation of numbness when bending toes. Work up for this revealed IgA lambda on IF. Not detected on SPEP. Bone marrow biopsy incidentally revealed CML: 46,XY,t(9;22)(q34;q11.2)[7]/46,XY[ 13] BCR/ABL1 transcripts detected, p210 (e13a2) isoform Peripheral counts normal at time of diagnosis. No enlargement of spleen on an MRI from 10/2016. Previous therapy: 1) Started imatinib 01/05/2015. 2) Sprycel 80 mg daily. He had been tolerating Gleevec very well but he was starting to have an increasing number of transcripts on PCR testing. Transition to Sprycel but got significant headache at the 100 mg dose. Dose was therefore decreased 80 mg and since then he had no recurrence headache. Current therapy: 1) Scemblix. About a week prior to 2019 he started developing vague abdominal pain that was all throughout the abdomen. Since then it has gotten progressively worse and has been more stable now but is characterized by exacerbations where he feels a sensation of numbness and tingling in the right abdomen. It seems to start in the right back of the abdomen and come straight through to the front. He has not noticed any exacerbating or relieving factors. His appetite has been normal. He does not have any nausea. No early satiety. Reflux symptoms are under very good control. Bowels have been moving about every other day. Stools are normal in caliber and color. No sign of GI bleeding. He has been undergoing a work-up for this pain. CT abdomen and pelvis 12/05/2020: RESULT: Liver: No mass. Biliary: No bile duct dilation. Gallbladder is unremarkable. Spleen: No mass. No splenomegaly. Pancreas: No mass or duct dilation. Adrenals: No mass. Kidneys: Prominence RIGHT renal collecting system and mild RIGHT hydroureter to the level of the urinary bladder. No calculus is evident. There is no renal mass. 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 GI tract: There is mild dilatation of a few LEFT abdominal jejunal loops. No other dilated bowel is appreciated. The appendix appears normal. Lymph nodes: No abdominal or pelvic lymphadenopathy. Mesentery/Peritoneum: No ascites or mass. Retroperitoneum: No mass. Vasculature: The celiac axis and SMA are patent. The portal vein and branches, splenic vein, SMV, and hepatic veins are patent. No abdominal aortic or iliac artery aneurysm. Pelvis: No mass, ascites or fluid collection. Bones/Soft Tissues: No significant finding. Lower thorax: Unremarkable. Commercial Installer (topogram) images: Unremarkable. Ultrasound right upper quadrant and spleen 12/07/2020: Pancreas: Normal sonographic appearance. Portions obscured: tail Liver: Echotexture: Homogeneous Echogenicity: Normal Surface contour: Smooth Lesions: None. Biliary: No intrahepatic biliary duct dilation. CBD: 3 mm in diameter. Gallbladder: Normal caliber -Contents: No cholelithiasis -Wall: Normal -Other: Negative sonographic Francis's sign. Right Kidney: Within normal limits, measuring 12.6 cm in length. Spleen: Enlarged spleen is noted, measuring 15.6 cm in length. Presents for ongoing oncologic management. Had EMG in March 2021. EMG of the left lower extremity revealed chronic motor axonal loss changes consistent with intraspinal canal lesion affecting the left L5 root or segments (i.e. motor radiculopathy), mild in degree electrically with evidence of active or ongoing motor axonal loss. There was a presence of mild, active motor axonal loss limited to intrinsic foot muscles and was of unclear clinical significance and may be related to local foot trauma or secondary to shoe wear. Repeat EGD 05/2021. The examined portion of the May and duodenum were normal. Gastritis was observed characterized by mild inflammation erosions and erythema in the entire stomach. Biopsies were obtained. Normal lower third of the esophagus and middle esophagus. Both areas were biopsied. Pathology: 1. Antrum, biopsy (A) - Antral mucosa with no diagnostic alterations. - No morphologic evidence of Helicobacter pylori microorganisms. 2. Distal esophagus, biopsy (B) - Squamous epithelium and inflamed (more content not included)... [facility] 09-18-2023 History of Present illness Narrative Diagnosis: 1) CML chronic phase 2) MGUS HPI: The patient is a 53 yo male who has h/o MS (exacerbating/remitting type; previous medications for MS: Avonex (2005), IV Steroids (2005) and PO Steroids (taper was rough, IV no issues). Currently on Tecfidera (May 2013). Symptoms from MS had been very stable since starting Tecfidera. Had several episodes syncope since July of 2014. See cardiology note for full history. Around the time of the first syncopal event, he started having a sensation of tightness in the hands b/l. No paresthesia or numbness. Toes had same feeling but got a sensation of numbness when bending toes. Work up for this revealed IgA lambda on IF. Not detected on SPEP. Bone marrow biopsy incidentally revealed CML: 46,XY,t(9;22)(q34;q11.2)[7]/46,XY[ 13] BCR/ABL1 transcripts detected, p210 (e13a2) isoform Peripheral counts normal at time of diagnosis. No enlargement of spleen on an MRI from 10/2016. Previous therapy: 1) Started imatinib 01/05/2015. 2) Sprycel 80 mg daily. He had been tolerating Gleevec very well but he was starting to have an increasing number of transcripts on PCR testing. Transition to Sprycel but got significant headache at the 100 mg dose. Dose was therefore decreased 80 mg and since then he had no recurrence headache. Current therapy: 1) Scemblix. About a week prior to 2019 he started developing vague abdominal pain that was all throughout the abdomen. Since then it has gotten progressively worse and has been more stable now but is characterized by exacerbations where he feels a sensation of numbness and tingling in the right abdomen. It seems to start in the right back of the abdomen and come straight through to the front. He has not noticed any exacerbating or relieving factors. His appetite has been normal. He does not have any nausea. No early satiety. Reflux symptoms are under very good control. Bowels have been moving about every other day. Stools are normal in caliber and color. No sign of GI bleeding. He has been undergoing a work-up for this pain. CT abdomen and pelvis 12/05/2020: RESULT: Liver: No mass. Biliary: No bile duct dilation. Gallbladder is unremarkable. Spleen: No mass. No splenomegaly. Pancreas: No mass or duct dilation. Adrenals: No mass. Kidneys: Prominence RIGHT renal collecting system and mild RIGHT hydroureter to the level of the urinary bladder. No calculus is evident. There is no renal mass. 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 GI tract: There is mild dilatation of a few LEFT abdominal jejunal loops. No other dilated bowel is appreciated. The appendix appears normal. Lymph nodes: No abdominal or pelvic lymphadenopathy. Mesentery/Peritoneum: No ascites or mass. Retroperitoneum: No mass. Vasculature: The celiac axis and SMA are patent. The portal vein and branches, splenic vein, SMV, and hepatic veins are patent. No abdominal aortic or iliac artery aneurysm. Pelvis: No mass, ascites or fluid collection. Bones/Soft Tissues: No significant finding. Lower thorax: Unremarkable. Commercial Installer (topogram) images: Unremarkable. Ultrasound right upper quadrant and spleen 12/07/2020: Pancreas: Normal sonographic appearance. Portions obscured: tail Liver: Echotexture: Homogeneous Echogenicity: Normal Surface contour: Smooth Lesions: None. Biliary: No intrahepatic biliary duct dilation. CBD: 3 mm in diameter. Gallbladder: Normal caliber -Contents: No cholelithiasis -Wall: Normal -Other: Negative sonographic Francis's sign. Right Kidney: Within normal limits, measuring 12.6 cm in length. Spleen: Enlarged spleen is noted, measuring 15.6 cm in length. Presents for ongoing oncologic management. Had EMG in March 2021. EMG of the left lower extremity revealed chronic motor axonal loss changes consistent with intraspinal canal lesion affecting the left L5 root or segments (i.e. motor radiculopathy), mild in degree electrically with evidence of active or ongoing motor axonal loss. There was a presence of mild, active motor axonal loss limited to intrinsic foot muscles and was of unclear clinical significance and may be related to local foot trauma or secondary to shoe wear. Repeat EGD 05/2021. The examined portion of the May and duodenum were normal. Gastritis was observed characterized by mild inflammation erosions and erythema in the entire stomach. Biopsies were obtained. Normal lower third of the esophagus and middle esophagus. Both areas were biopsied. Pathology: 1. Antrum, biopsy (A) - Antral mucosa with no diagnostic alterations. - No morphologic evidence of Helicobacter pylori microorganisms. 2. Distal esophagus, biopsy (B) - Squamous epithelium and inflamed cardia-type mucosa, negative for intestinal metaplasia or dysplasia. 3. Mid esophagus, biopsy (C) - Squamous epithelium with no diagnostic alteration. Presents for ongoing oncologic management. Interim history: He was found to have significant gastric ulcer disease. Therapy changed to Scemblix so he could go on any PPI needed. He continues to tolerate it well with no symptomatic side effect. Prilosec on a daily basis at 40 mg a day. Still has complaint of abdominal bloating and pain. Denies reflux. No nausea. Appetite normal. Bowels have been moving regularly. He endorses today that he has been taking anywhere from 4-8 store brand Excedrin tablets a day for recurring headache. Is also been having palpitations. PMH, medications and allergies as below personally reviewed by me today. Any changes documented in appropriate section. ROS: Constitutional: No recent fever. No drenching night sweats. Chronic fatigue. HEENT: No recent change in voice, vision or hearing. Resp: Denies cough, wheeze and hemoptysis. CVS: Denies LE edema. GI: See above. : No dysuria or gross hematuria. No symptoms of bladder outlet obstruction. Endo: No hot flashes. Derm: No rash ir itch currently. Psych: Stable mood. PHYSICAL EXAM: Vitals: Blood pressure 135/82, pulse 68, temperature 36.8 C (98.3 F), weight 93.9 kg (207 lb), SpO2 98 %. Well-appearing and in no acute distress. EYES: Sclerae are anicteric bilaterally. LYMPHATIC: There is no palpable cervical or supraclavicular adenopathy. RESPIRATORY: Inspiratory breath sounds are of diminished intensity in all sotelo. No rales, wheezes or rhonchi. CARDIOVASCULAR: Rhythm is regular. ABDOMEN: The abdomen is nondistended. No organomegaly. Generalized tenderness. Extremities: No swelling or edema. SKIN: No jaundice. LABS: %IS 0.002 06/16/2023. 0.0026 09/10/2023. MR >4.7 06/16/2023. 4.59 09/10/2023. PATHOLOGY: Bone marrow biopsy 01/03/2021: A Congo Red stain performed on the clot section is negative for amyloid. FINAL DIAGNOSIS BONE MARROW, ASPIRATE SMEAR AND CORE BIOPSY, WITH CLOT SECTION AND PERIPHERAL BLOOD SMEAR: - INVOLVED BY PLASMA CELL NEOPLASM WITH 5-10% PLASMA CELLS - CELLULAR BONE MARROW WITH TRILINEAGE HEMATOPOIESIS AND OCCASIONAL HYPOLOBATE MEGAKARYOCYTES. - STAINABLE IRON PRESENT. - SEE COMMENT. Comment: The patient is a 50-year-old male with a history of CML, IgA lambda monoclonal gammopathy and multiple sclerosis. The bone marrow is involved by a plasma cell neoplasm with 5-10% lambda monotypic plasma cells identified by immunohistochemistry performed on the clot section. The bone marrow also shows occasional hypolobate megakaryocytes, raising the possibility of persistent CML. 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 -Serum monoclonal protein by immunofixation only. Not quantifiable by electrophoresis. -Repeat bone marrow biopsy 01/2021 suggested some progression with areas up to 10% plasma cells. -Whole-body bone CT 02/01/2021 revealed no lytic bone lesions. Plan: -Recheck in 3 months. (C92.10) CML (chronic myeloid leukemia) (HCC) Assessment: -Diagnosis was incidental on work up for monoclonal protein--was found to have t(9;22) on cytogenetics. -There was a complete cytogenetic response at 1 year (repeat bone marrow biopsy January 2016). -Increasing transcript number on Gleevec. -Was doing well on Sprycel but developed gastric ulcers requiring higher dose PPI so therapy recently changed to Scemblix. -Tolerating well with no subjective side effects. -He can now take any PPI, H2 zeny or calcium based antacid scheduled or as needed. -Small increase in transcript number but maintains deep molecular response. Lab work reviewed with him. Plan: -Advised him to discontinue Excedrin. -Follow-up with Dr. Parada. -Continue Scemblix. -Repeat PCR in 3 months. -Influenza vaccination today. Portions of this documentation were copied and pasted from previous office visit notes in order to provide a cohesive continuity of the history. The note has been reviewed and edited and updated as necessary. I spent a total of 30 minutes on the date of the service which included [id number] patient care, completing clinical documentation, obtaining and/or reviewing separately obtained history, performing a medically appropriate examination, counseling and educating the patient/family/caregiver, ordering medications, tests, or procedures, communicating with other HCPs (not separately reported), and communicating results to the patient/family/caregiver. Otoniel Heaton DO documented in this encounter [facility] 09-15-2023 Miscellaneous Notes Last OV: 06/26/23 - Next scheduled appt: 10/06. Patient has been identified by name and date of : Yes Requested Prescriptions Pending Prescriptions Disp Refills gemfibrozil (LOPID) 600 mg tablet 90 tablet 1 Sig: Take 1 tablet by mouth two times a day. RX INSTRUCTIONS: Patient aware RX will be sent to pharmacy. No need to notify patient. Farzana Martin LPN documented in this encounter [facility] 09-15-2023 Note HNO ID: [id number] Author: Marcia Lezama Service: ? Author Type: ? Type: Progress Notes Filed: 09/16/2023 11:03 AM Note Text: [facility] Refill Assessment Medication(s): Scemblix No new clinic notes to review since last SPP refill encounter. Labs from 09/10 reviewed. CBC WNL except for mild elevation in WBC/ANC. Next OV scheduled 09/18. Will proceed with delivery as labs have been stable/WNL for over a year ALLERGIES Allergen Reactions Aspirin GI Upset Penicillins Hives Pollen Itching Topamax [Topiramate] Other: See Comments Severe migraines Shellfish Derived Unknown Was told per Dr. Parada needs an Epi pen for this allergy per lab work Patient's current medication list and adherence status to current therapy were reviewed by Specialty Pharmacy clinical pharmacist to identify any new drug interactions or non-compliance to therapy. Therapy continues to be appropriate for disease, patient response, and medical condition. Verification of therapeutic benefit and effectiveness with current therapy was completed. Adverse events, barriers in adherence, and side effects were assessed and addressed if applicable. Will proceed with refill with no changes in therapy - patient progressing towards achieving therapeutic goals based on medication-specific laboratory parameters, disease state markers and outcomes. Oleksandr Thompson, JoaquinD Clinical Pharmacist, Oncology [facility] P: ; F: Pool: P [facility] Pool #: [id number] Mechanical Developer Prover Assessment Patient confirmed: Yes Med/dose confirmed: Yes Supplies needed: No supplies needed Missed doses: No Estimated days supply on hand: 5 Copay amount: 0 Copay form of payment: Credit card on file Payment confirmed: Yes Delivery method: FedEx Signature required: Waived on patient request Delivery address: [address] [place] [address] [place] [id number] Delivery date: 09/17/23 Questions or concerns for the pharmacist?: No [facility] Visit Assessment - Hematology/Oncology: Ivent complete: No Assessment to use: Refill Vaccination Assessment: Date of influenza vaccination reminder: 08/21/2023 Date of most recent vaccination assessment: 08/21/2023 Treatment Plan Information: Treatment Plan Information: 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 Avoid food 2 hours prior and 1 hour after taking Admin/Storage: Administer on an empty stomach; avoid food for at least 2 hours before and 1 hour after asciminib administration. If administering once daily, administer at approximately the same time each day; if administering twice daily, administer approximately every 12 hours. Swallow tablets whole; do not break, crush, or chew. Dispense and store in original container to protect from moisture. D/I: No major Warnings: Bone marrow suppression, cardiovascular toxicity, GI toxicity (pancreatitis), hypersensitivity HTN A/E: HTN, rash, diarrhea, increased lipase, nausea, URTI, decreased serum calcium/phosphate, increase triglycerides/cholesterol/uric acid Lab/Monitoring: CBC every 2 weeks for the first 3 months and monthly thereafter or as clinically necessary serum lipase and amylase levels monthly or as clinically necessary Estimated Start Date Info: Per Dr Otoniel Heaton Discretion Estimated Treatment Duration: Until progression or toxicity Refill Assessment: Lab monitoring inclusive of CBC, Chem-7, and other labs as pertinent for therapy: Yes Chemo cycle timing assessment: N/A Screening for infection: Yes Adverse reactions and mitigation: Yes Medication changes and interaction assessment: Yes Assessment of injection issues: N/A Additional Assessment: Assessment of continued need for prophylactic medications at regular intervals: Yes Radiology procedure timing to assess for disease progression: Yes Scheduled future appointments: Yes Marcia Lezama [facility] 08-25-2023 Miscellaneous Notes Summary: APPOINTMENT LVM FOR PATIENT TO CALL SO WE CAN GET HIM SCHEDULED FOR A FOLLOW UP WITH MCKENNA GARCIA documented in this encounter [facility] 08-20-2023 Miscellaneous Notes PT INFORMED, VERBALIZED UNDERSTANDING Paola Catalan Message left to return call Please inform patient that his vitamin D levels are too low. Needs to add at least 2000 international unit(s) a day of vitamin D3 with meals every day. Also his vitamin B12 is low normal. Would recommend vitamin B12 at least [id number] international unit(s) a day Noman Dean DO documented in this encounter [facility] 08-19-2023 Note HNO ID: [id number] Author: Oswaldo (Cmv Driver)Sabrina Service: ? Author Type: ? Type: Progress Notes Filed: 08/21/2023 9:50 AM Note Text: [facility] Refill Assessment Medication(s): Scemblix No new clinic notes to review since last SPP refill encounter. Labs from 08/18 reviewed. CBC and CMP WNL Next OV scheduled 09/15 with labs 09/08. ALLERGIES Allergen Reactions Aspirin GI Upset Penicillins Hives Pollen Itching Topamax [Topiramate] Other: See Comments Severe migraines Shellfish Derived Unknown Was told per . Friend needs an Epi pen for this allergy per lab work Patient's current medication list and adherence status to current therapy were reviewed by Specialty Pharmacy clinical pharmacist to identify any new drug interactions or non-compliance to therapy. Therapy continues to be appropriate for disease, patient response, and medical condition. Verification of therapeutic benefit and effectiveness with current therapy was completed. Adverse events, barriers in adherence, and side effects were assessed and addressed if applicable. Will proceed with refill with no changes in therapy - patient progressing towards achieving therapeutic goals based on medication-specific laboratory parameters, disease state markers and outcomes. Oleksandr Thompson, PharmD Clinical Pharmacist, Oncology [facility] P: ; F: Pool: P [facility] Pool #: [id number] Mechanical Developer Prover Assessment Patient confirmed: Yes Med/dose confirmed: Yes Supplies needed: No supplies needed Missed doses: No Estimated days supply on hand: 5 Copay amount: 0 Delivery method: FedEx Signature required: No Delivery address: [facility] [address], [facility] [address] Delivery date: 08/22/23 Questions or concerns for the pharmacist?: No [facility] Visit Assessment - Hematology/Oncology: Ivent complete: No Assessment to use: Refill Vaccination Assessment: Annual influenza vaccination reminder: Yes Date of influenza vaccination reminder: 08/21/2023 Vaccination assessment completed: Yes Date of most recent vaccination assessment: 08/21/2023 Treatment Plan Information: Treatment Plan Information: 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 Avoid food 2 hours prior and 1 hour after taking Admin/Storage: Administer on an empty stomach; avoid food for at least 2 hours before and 1 hour after asciminib administration. If administering once daily, administer at approximately the same time each day; if administering twice daily, administer approximately every 12 hours. Swallow tablets whole; do not break, crush, or chew. Dispense and store in original container to protect from moisture. D/I: No major Warnings: Bone marrow suppression, cardiovascular toxicity, GI toxicity (pancreatitis), hypersensitivity HTN A/E: HTN, rash, diarrhea, increased lipase, nausea, URTI, decreased serum calcium/phosphate, increase triglycerides/cholesterol/uric acid Lab/Monitoring: CBC every 2 weeks for the first 3 months and monthly thereafter or as clinically necessary serum lipase and amylase levels monthly or as clinically necessary Estimated Start Date Info: Per Dr Otoniel Heaton Discretion Estimated Treatment Duration: Until progression or toxicity Refill Assessment: Lab monitoring inclusive of CBC, Chem-7, and other labs as pertinent for therapy: Yes Chemo cycle timing assessment: N/A Screening for infection: Yes Adverse reactions and mitigation: Yes Medication changes and interaction assessment: Yes Assessment of injection issues: N/A Additional Assessment: Assessment of continued need for prophylactic medications at regular intervals: Yes Radiology procedure timing to assess for disease progression: Yes Scheduled future appointments: Yes Sabrina Chacon (Cmv Driver) [facility] 08-19-2023 History of Present illness Narrative [facility] Refill Assessment Medication(s): Scemblix Patient's current medication list and adherence status to current therapy were reviewed by Specialty Pharmacy clinical pharmacist to identify any new drug interactions or non-compliance to therapy. Therapy continues to be appropriate for disease, patient response, and medical condition. Verification of therapeutic benefit and effectiveness with current therapy was completed. Adverse events, barriers in adherence, and side effects were assessed and addressed if applicable. Will proceed with refill with no changes in therapy - patient progressing towards achieving therapeutic goals based on medication-specific laboratory parameters, disease state markers and outcomes. Mechanical Developer Prover Assessment Patient confirmed: Yes Med/dose confirmed: Yes Supplies needed: No supplies needed Missed doses: No Estimated days supply on hand: 5 Copay amount: 0 Delivery method: FedEx Signature required: No Delivery address: [facility] [address], [facility] [address] Delivery date: 08/22/23 Questions or concerns for the pharmacist?: No [facility] Visit Assessment - Hematology/Oncology: Assessment to use: Refill Vaccination Assessment: Date of influenza vaccination reminder: 08/02/2022 Date of most recent vaccination assessment: 08/02/2022 Treatment Plan Information: Treatment Plan Information: 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 Avoid food 2 hours prior and 1 hour after taking Admin/Storage: Administer on an empty stomach; avoid food for at least 2 hours before and 1 hour after asciminib administration. If administering once daily, administer at approximately the same time each day; if administering twice daily, administer approximately every 12 hours. Swallow tablets whole; do not break, crush, or chew. Dispense and store in original container to protect from moisture. D/I: No major Warnings: Bone marrow suppression, cardiovascular toxicity, GI toxicity (pancreatitis), hypersensitivity HTN A/E: HTN, rash, diarrhea, increased lipase, nausea, URTI, decreased serum calcium/phosphate, increase triglycerides/cholesterol/uric acid Lab/Monitoring: CBC every 2 weeks for the first 3 months and monthly thereafter or as clinically necessary serum lipase and amylase levels monthly or as clinically necessary Estimated Start Date Info: Per Dr Otoniel Heaton Discretion Estimated Treatment Duration: Until progression or toxicity Sabrina Chacon (Cmv Driver) documented in this encounter [facility] 07-25-2023 Miscellaneous Notes PDMP website checked and validated. All prescriptions have been APPROPRIATELY filled. No suspicious activity was identified. 07/25/2023 by Maria Dolores Randall APRN.CNP The following approved medication requests have been transmitted electronically. Requested Prescriptions Signed Prescriptions Disp Refills HYDROcodone-acetaminophen (NORCO) 5-325 mg per tablet 60 tablet 0 Sig: Take 1 tablet by mouth twice daily as needed for pain for up to 30 days. Authorizing Provider: MARIA DOLORES RANDALL dextroamphetamine-amphetamine (ADDERALL) 10 mg tablet 30 tablet 0 Sig: Take 1 tablet by mouth once daily for 30 days. In the afternoon as needed for concentration impairment Authorizing Provider: MARIA DOLORES RANDALL amphetamine-dextroamphetamine XR (ADDERALL XR) 30 mg capsule 30 capsule 0 Sig: Take 1 capsule by mouth once daily for 30 days. Authorizing Provider: MARIA DOLORES RANDALL APRN.CNP Patient has been identified by name and date of : Yes, Provider Dr. Dean Date 07/25/23 Time 12:45 pm Patient phones for refill(s): Requested Prescriptions Pending Prescriptions Disp Refills HYDROcodone-acetaminophen (NORCO) 5-325 mg per tablet 60 tablet 0 Sig: Take 1 tablet by mouth twice daily as needed for pain for up to 30 days. dextroamphetamine-amphetamine (ADDERALL) 10 mg tablet 30 tablet 0 Sig: Take 1 tablet by mouth once daily for 30 days. In the afternoon as needed for concentration impairment amphetamine-dextroamphetamine XR (ADDERALL XR) 30 mg capsule 30 capsule 0 Sig: Take 1 capsule by mouth once daily for 30 days. Date of last office visit in primary care: 06/26/23 next apt 10/06/23 Last 2 Encounter Wt Readings: Date: Wt: 06/26/2023 89.8 kg (198 lb) 06/23/2023 89.6 kg (197 lb 8 oz) Previous labs/tests for medication: Not applicable Please advise. Thank you. Christina Verma LPN documented in this encounter [facility] 07-25-2023 Miscellaneous Notes Message left on [employer] pt. Was a no show for labs this past Friday. Orders are in, he can go at his convenience and get labs drawn. Virginia Leiva LPN documented in this encounter [facility] 07-21-2023 Note HNO ID: [id number] Author: Abdulaziz (Materials And Corrosion Engineer)Jammie Service: ? Author Type: ? Type: Progress Notes Filed: 07/24/2023 10:27 AM Note Text: [facility] Refill Assessment Medication(s): Scemblix No new clinical information to review since last SPP refill encounter. Next OV scheduled 09/15 with labs 08/18 and 09/08. ALLERGIES Allergen Reactions Aspirin GI Upset Penicillins Hives Pollen Itching Topamax [Topiramate] Other: See Comments Severe migraines Shellfish Derived Unknown Was told per Friend needs an Epi pen for this allergy per lab work Patient's current medication list and adherence status to current therapy were reviewed by Specialty Pharmacy clinical pharmacist to identify any new drug interactions or non-compliance to therapy. Therapy continues to be appropriate for disease, patient response, and medical condition. Verification of therapeutic benefit and effectiveness with current therapy was completed. Adverse events, barriers in adherence, and side effects were assessed and addressed if applicable. Will proceed with refill with no changes in therapy - patient progressing towards achieving therapeutic goals based on medication-specific laboratory parameters, disease state markers and outcomes. Mechanical Developer Prover Assessment Patient confirmed: Yes Med/dose confirmed: Yes Supplies needed: No supplies needed Missed doses: No Estimated days supply on hand: 4 Copay amount: 0 Delivery method: FedEx Signature required: Waived on patient request Delivery address: [address] [place] [address] [place] [id number] Delivery date: 07/25/23 Questions or concerns for the pharmacist?: No [facility] Visit Assessment - Hematology/Oncology: Ivent complete: No Assessment to use: Refill Vaccination Assessment: Date of influenza vaccination reminder: 08/02/2022 Date of most recent vaccination assessment: 08/02/2022 Treatment Plan Information: Treatment Plan Information: 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 Avoid food 2 hours prior and 1 hour after taking Admin/Storage: Administer on an empty stomach; avoid food for at least 2 hours before and 1 hour after asciminib administration. If administering once daily, administer at approximately the same time each day; if administering twice daily, administer approximately every 12 hours. Swallow tablets whole; do not break, crush, or chew. Dispense and store in original container to protect from moisture. D/I: No major Warnings: Bone marrow suppression, cardiovascular toxicity, GI toxicity (pancreatitis), hypersensitivity HTN A/E: HTN, rash, diarrhea, increased lipase, nausea, URTI, decreased serum calcium/phosphate, increase triglycerides/cholesterol/uric acid Lab/Monitoring: CBC every 2 weeks for the first 3 months and monthly thereafter or as clinically necessary serum lipase and amylase levels monthly or as clinically necessary Estimated Start Date Info: Per Dr Otoniel Heaton Discretion Estimated Treatment Duration: Until progression or toxicity Refill Assessment: Lab monitoring inclusive of CBC, Chem-7, and other labs as pertinent for therapy: Yes Chemo cycle timing assessment: N/A Screening for infection: Yes Adverse reactions and mitigation: Yes Medication changes and interaction assessment: Yes Assessment of injection issues: N/A Additional Assessment: Assessment of continued need for prophylactic medications at regular intervals: Yes Radiology procedure timing to assess for disease progression: Yes Scheduled future appointments: Yes Jammie Cintron (Materials And Corrosion Engineer) [facility] 06-26-2023 Note HNO ID: [id number] Author: Andrey Art APRN.SANDWICH COUNTER ATTENDANT Service: ? Author Type: Nurse Practitioner Type: Progress Notes Filed: 06/26/2023 3:30 PM Note Text: Chief Complaint Patient presents with: Follow Up HPI Otoniel Desai is a 52 year old male who presents here today for Above Complaints. Patient presents for medication follow up. Patient currently on adderall and norco, tolerating well. Patient saw Dr. Heaton on Friday who recommended patient see PCP for tachycardia and chest pain, instructing patient he may need a stress test. Echo in 01/2023 normal as well as ALAN don 03/17 and 06/23. Patient reports that chest pain comes and goes and occurs at rest and with activity. Pain has been intermittent over the last month. Past medical history, appointments, medications, allergies reviewed. Previous Medical History PAST MEDICAL HISTORY Diagnosis Date ADHD (attention deficit hyperactivity disorder) Arrhythmia Arthritis Bipolar 1 disorder ([facility]) Dr. Easley [facility] Chronic obstructive pulmonary disease ([facility]) 04/19/2019 Chronic obstructive pulmonary disease ([facility]) CML (chronic myeloid leukemia) ([facility]) 02/13/2015 Dr. 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 Vasquez Neurologist Multiple sclerosis ([facility]) 10/2005 Dr. Mauricio Vasquez Neurologist Osteoarthritis of left knee 01/2022 Other symptoms involving abdomen and pelvis(789.9) Palpitations Schizophrenia ([facility]) Dr. Easley [facility] Snoring Substance abuse rule out 03/15/2015 Syncope Tobacco abuse Previous Surgical History PAST SURGICAL HISTORY Procedure Laterality Date BONE MARROW BIOPSY 12/2015 COLONOSCOPY FLX DX W/COLLJ SPEC WHEN PFRMD 07/22/2012 Colonoscopy repeat 3 years-requires MAC anesthesia COLONOSCOPY FLX DX W/COLLJ SPEC WHEN PFRMD 07/26/2015 Colonoscopy-pt requires MAC COLONOSCOPY SCRN NOT HIGH RISK 12/26/2020 COLONOSCOPY W/BIOPSY SINGLE/MULTIPLE 05/29/2006 repeat in 10 yrs EGD 12/26/2020 EGD 02/15/2021 ESOPHAGOGASTRODUODENOSCOPY TRANSORAL DIAGNOSTIC 02/03/2012 EGD ESOPHAGOGASTRODUODENOSCOPY TRANSORAL DIAGNOSTIC 02/07/2016 EGD ESOPHAGOGASTRODUODENOSCOPY TRANSORAL DIAGNOSTIC 05/01/2021 PAST SURGICAL HISTORY OF bladder growth- benign PAST SURGICAL HISTORY OF 2015 removal skin cancer right side neck TNOT ELBOW LATERAL/MEDIAL DEBRIDE OPEN Left 08/23/2022 Left elbow lateral epicondyle/tendon debridement TNOT ELBOW LATERAL/MEDIAL DEBRIDE OPEN Right 10/30/2022 Right elbow lateral epicondyle/tendon debridement TONSILLECTOMY HX Family History FAMILY HISTORY Problem Relation Age of Onset Heart Mother Prostate Cancer Father at age 70 Lung Cancer Sister No Known Problems Brother Cancer Maternal Grandmother throat cancer Ischemic Heart Disease Maternal Grandmother other (brain hemorrhage) Maternal Grandmother Diabetes Maternal Grandfather Stroke Paternal Grandfather Heart Paternal Grandfather Cancer Maternal Aunt stomach Cancer Other Father's sister's son has CML Lung Cancer Paternal Uncle Patient Allergies ALLERGIES Allergen Reactions Aspirin GI Upset Penicillins Hives Pollen Itching Topamax [Topiramate] Other: See Comments Severe migraines Shellfish Derived Unknown Was told per Dr. Friend needs an Epi pen for this allergy per lab work Current Medications Current Outpatient Medications on File Prior to Visit Medication Sig gabapentin (NEURONTIN) 600 mg tablet Take 1 tablet by mouth three times daily for 60 days. atenolol (TENORMIN) 25 mg tablet Take 1 tablet by mouth once daily. oxybutynin ER (DITROPAN XL) 15 mg 24 hr Extended Rel Tab Take 1 tablet by mouth once daily. gemfibrozil (LOPID) 600 mg tablet Take 1 tablet by mouth twice daily. omeprazole (PRILOSEC) 40 mg capsule Take 1 capsule by mouth once daily. HYDROcodone-acetaminophen (NORCO) 5-325 mg per tablet Take 1 tablet by mouth twice daily as needed for pain for up to 30 days. amphetamine-dextroamphetamine XR (ADDERALL XR) 30 mg biphasic capsule Take 1 capsule by mouth once daily for 30 days. dextroamphetamine-amphetamine (ADDERALL) 10 mg tablet Take 1 tablet by mouth once daily for 30 days. In the afternoon as needed for concentration impairment asciminib (SCEMBLIX) 40 mg tablet Take 2 tablets (80 mg) by mouth once daily on an empty stomach. Avoid food 2 hours prior and 1 hour after taking linaCLOtide (LINZESS) 72 mcg capsule take 1 capsule by mouth every morning ON AN EMPTY STOMACH 30 MINUTES before EATING ANYTHING -- SWALLOW WHOLE; DO NOT CRUSH OR CHEW (Patient taking differently: Take 1 capsule by mouth once daily. 290mg tablet take 1 capsule by mouth every morning ON AN EMPTY STOMACH 30 MINUTES before EATING ANYTHING -- SWALLOW WHOLE; DO NOT CRUSH OR CHEW) PEG (more content not included)... [facility] 06-26-2023 Miscellaneous Notes Addended by: ANDREY ART on: 06/26/2023 03:33 PM Modules accepted: Orders documented in this encounter [facility] 06-26-2023 Instructions Andrey Art APRN.CNP - 06/26/2023 3:25 PM EDT Continue current medications Follow up in 3 months Schedule cardiac stress test documented in this encounter [facility] 06-26-2023 History of Present illness Narrative Chief Complaint Patient presents with: Follow Up HPI Otoniel Desai is a 52 year old male who presents here today for Above Complaints. Patient presents for medication follow up. Patient currently on adderall and norco, tolerating well. Patient saw Dr. Heaton on Friday who recommended patient see PCP for tachycardia and chest pain, instructing patient he may need a stress test. Echo in 01/2023 normal as well as ALAN don 03/17 and 06/23. Patient reports that chest pain comes and goes and occurs at rest and with activity. Pain has been intermittent over the last month. Past medical history, appointments, medications, allergies reviewed. Previous Medical History PAST MEDICAL HISTORY Diagnosis Date ADHD (attention deficit hyperactivity disorder) Arrhythmia Arthritis Bipolar 1 disorder (H[facility]) Dr. Easley [facility] Chronic obstructive pulmonary disease ([facility]) 04/19/2019 Chronic obstructive pulmonary disease ([facility]) CML (chronic myeloid leukemia) ([facility]) 02/13/2015 Dr. 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 Vasquez Neurologist Multiple sclerosis ([facility]) 10/2005 Dr. Mauricio Vasquez Neurologist Osteoarthritis of left knee 01/2022 Other symptoms involving abdomen and pelvis(789.9) Palpitations Schizophrenia ([facility]) Dr. Easley [facility] Snoring Substance abuse rule out 03/15/2015 Syncope Tobacco abuse Previous Surgical History PAST SURGICAL HISTORY Procedure Laterality Date BONE MARROW BIOPSY 12/2015 COLONOSCOPY FLX DX W/COLLJ SPEC WHEN PFRMD 07/22/2012 Colonoscopy repeat 3 years-requires MAC anesthesia COLONOSCOPY FLX DX W/COLLJ SPEC WHEN PFRMD 07/26/2015 Colonoscopy-pt requires MAC COLONOSCOPY SCRN NOT HIGH RISK 12/26/2020 COLONOSCOPY W/BIOPSY SINGLE/MULTIPLE 05/29/2006 repeat in 10 yrs EGD 12/26/2020 EGD 02/15/2021 ESOPHAGOGASTRODUODENOSCOPY TRANSORAL DIAGNOSTIC 02/03/2012 EGD ESOPHAGOGASTRODUODENOSCOPY TRANSORAL DIAGNOSTIC 02/07/2016 EGD ESOPHAGOGASTRODUODENOSCOPY TRANSORAL DIAGNOSTIC 05/01/2021 PAST SURGICAL HISTORY OF bladder growth- benign PAST SURGICAL HISTORY OF 2015 removal skin cancer right side neck TNOT ELBOW LATERAL/MEDIAL DEBRIDE OPEN Left 08/23/2022 Left elbow lateral epicondyle/tendon debridement TNOT ELBOW LATERAL/MEDIAL DEBRIDE OPEN Right 10/30/2022 Right elbow lateral epicondyle/tendon debridement TONSILLECTOMY HX Family History FAMILY HISTORY Problem Relation Age of Onset Heart Mother Prostate Cancer Father at age 70 Lung Cancer Sister No Known Problems Brother Cancer Maternal Grandmother throat cancer Ischemic Heart Disease Maternal Grandmother other (brain hemorrhage) Maternal Grandmother Diabetes Maternal Grandfather Stroke Paternal Grandfather Heart Paternal Grandfather Cancer Maternal Aunt stomach Cancer Other Father's sister's son has CML Lung Cancer Paternal Uncle Patient Allergies ALLERGIES Allergen Reactions Aspirin GI Upset Penicillins Hives Pollen Itching Topamax [Topiramate] Other: See Comments Severe migraines Shellfish Derived Unknown Was told per Dr. Friend needs an Epi pen for this allergy per lab work Current Medications Current Outpatient Medications on File Prior to Visit Medication Sig gabapentin (NEURONTIN) 600 mg tablet Take 1 tablet by mouth three times daily for 60 days. atenolol (TENORMIN) 25 mg tablet Take 1 tablet by mouth once daily. oxybutynin ER (DITROPAN XL) 15 mg 24 hr Extended Rel Tab Take 1 tablet by mouth once daily. gemfibrozil (LOPID) 600 mg tablet Take 1 tablet by mouth twice daily. omeprazole (PRILOSEC) 40 mg capsule Take 1 capsule by mouth once daily. HYDROcodone-acetaminophen (NORCO) 5-325 mg per tablet Take 1 tablet by mouth twice daily as needed for pain for up to 30 days. amphetamine-dextroamphetamine XR (ADDERALL XR) 30 mg biphasic capsule Take 1 capsule by mouth once daily for 30 days. dextroamphetamine-amphetamine (ADDERALL) 10 mg tablet Take 1 tablet by mouth once daily for 30 days. In the afternoon as needed for concentration impairment asciminib (SCEMBLIX) 40 mg tablet Take 2 tablets (80 mg) by mouth once daily on an empty stomach. Avoid food 2 hours prior and 1 hour after taking linaCLOtide (LINZESS) 72 mcg capsule take 1 capsule by mouth every morning ON AN EMPTY STOMACH 30 MINUTES before EATING ANYTHING -- SWALLOW WHOLE; DO NOT CRUSH OR CHEW (Patient taking differently: Take 1 capsule by mouth once daily. 290mg tablet take 1 capsule by mouth every morning ON AN EMPTY STOMACH 30 MINUTES before EATING ANYTHING -- SWALLOW WHOLE; DO NOT CRUSH OR CHEW) PEG 400-propylene glycol (SYSTANE ULTRA) 0.4-0.3 % ophthalmic solution Use 1 Drop in both eyes twice daily. ANORO ELLIPTA 62.5-25 mcg/actuation inhaler inhale 1 puff by mouth and INTO THE LUNGS once daily albuterol HFA (VENTOLIN HFA) 90 mcg/actuation inhaler INHALE 2 PUFFS INSTRUCTED EVERY FOUR HOURS NEEDED FOR WHEEZING / SHORTNESS OF BREATH diclofenac (VOLTAREN) 1 % topical gel apply 2 grams TO AFFTECTED AREA three times a day dicyclomine (BENTYL) 20 mg tablet Take 1 tablet by mouth three times daily. Cholecalciferol, Vitamin D3, (VITAMIN D-3) 50 mcg (2,000 unit) cap Take 1 capsule by mouth once daily. lactobacillus rhamnosus (CULTURELLE) 15 billion cell capsule Take 1 capsule by mouth once daily. (Patient not taking: Reported on 06/23/2023) lamoTRIgine (LAMICTAL) 200 mg tablet Take 1 tablet by mouth once daily. ARIPiprazole (ABILIFY) 5 mg tablet Take 1 tablet by mouth once daily. vilazodone (VIIBRYD) 40 mg tablet Take 40 mg by mouth once daily. Current Facility-Administered Medications on File Prior to Visit Medication perflutren lipid microspheres 1.3 mL in NaCl (PF) 0.9% 10 mL injection (DEFINITY) sodium chloride 0.9 % (flush) 10 mL (BD POSIFLUSH) Social History Social History Tobacco Use Smoking status: Every Day Packs/day: 0.50 Years: 34.00 Total pack years: 17.00 Types: Cigarettes Smokeless tobacco: Never Tobacco comments: Started age 18 Vaping Use Vaping Use: Never used Substance Use Topics Alcohol use: Not Currently Drug use: No Review of Symptoms REVIEW OF SYSTEMS SEE HPI EXAM: BP 120/66 Pulse 74 Resp 16 Wt 89.8 kg (198 lb) BMI 26.82 kg/m General Appearance: Well appearing, alert, in no acute distress, well-hydrated, well nourished.. Lungs: Lungs clear to auscultation. No wheezing, rhonchi, rales.. Heart: RRR without murmur, gallop, or rubs. No ectopy. Health Maintenance List HEPATITIS B(1 of 3 - 3-dose series) Never done COVID-19 VACCINE(4 - Booster for Pfizer series) due on 11/20/2021 DEPRESSION ASSESSMENT due on 12/01/2022 DTAP,TDAP,TD(3 - Tdap) due on 04/27/2023 INFLUENZA(1) due on 08/01/2023 ANNUAL PCP TEAM CHRONIC DISEASE VISIT due on 03/28/2024 BP CONTROLLED (<130/80) due on 06/23/2024 COLORECTAL CANCER SCREENING due on 12/26/2025 DIABETES SCREEN due on 06/18/2026 LIPID SCREEN due on 06/18/2028 PNEUMOCOCCAL(4 - PPSV23 or PCV20) due on 2035 ALPHA-1 ANTITRYPSIN DEFICIENCY SCREENING Completed SPIROMETRY Completed HEPATITIS C SCREENING Completed HIV SCREENING Completed SHINGRIX VACCINE Completed HPV VACCINE Aged Out ASSESSMENT/PLAN: 1. Tachypnea - ICD9: 786.06, ICD10: R06.82 (primary diagnosis) - CARDIAC DRUG STRESS TEST 2. Bilateral leg pain - ICD9: 729.5, ICD10: M79.604, M79.605 - HYDROCODONE 5 MG-ACETAMINOPHEN 325 MG TABLET 3. Multiple sclerosis (HCC) - ICD9: 340, ICD10: G35 - HYDROCODONE 5 MG-ACETAMINOPHEN 325 MG TABLET 4. Attention deficit disorder, unspecified hyperactivity presence - ICD9: 314.00, ICD10: F98.8 - DEXTROAMPHETAMINE-AMPHETAMINE ER 30 MG 24HR CAPSULE,EXTEND RELEASE - DEXTROAMPHETAMINE-AMPHETAMINE 10 MG TABLET 5. Attention deficit disorder, unspecified hyperactivity presence - ICD9: 314.00, ICD10: F98.8 - DEXTROAMPHETAMINE-AMPHETAMINE 10 MG TABLET 6. Chest pain, unspecified type - ICD9: 786.50, ICD10: R07.9 Chest pain of unclear etiology, patient with significant risk factor(s) of family history of early coronary heart disease and smoking - Stress testing- see orders - CARDIAC DRUG STRESS TEST PDMP reviewed. Refills filled and requested appropriately, no suspicion of abuse. Andrey Art APRN.SANDWICH COUNTER ATTENDANT documented in this encounter [facility] 06-25-2023 Miscellaneous Notes Detailed message left on VM. Yes, the labs I ordered for him are stable Noman Dean DO Spoke with patient. Given message from provider's office. Patient verbalizes understanding. He is asking if the rest of his labs are okay? Marivel Gamez RN TC patient, left message for patient to call back and speak with a triage nurse regarding results. Huyen Evans, RN Please inform patient that his thyroid labs are stable Noman Dean DO documented in this encounter [facility] 06-24-2023 Note HNO ID: [id number] Author: Louie (Stunn)Katy Service: ? Author Type: ? Type: Progress Notes Filed: 06/25/2023 11:02 AM Note Text: [facility] Refill Assessment Medication(s): Scemblix Reviewed OV note on 06/23. Labs reviewed. Next clinic visit scheduled 09/15. ALLERGIES Allergen Reactions Aspirin GI Upset Penicillins Hives Pollen Itching Topamax [Topiramate] Other: See Comments Severe migraines Shellfish Derived Unknown Was told per Dr. Friend needs an Epi pen for this allergy per lab work Patient's current medication list and adherence status to current therapy were reviewed by Specialty Pharmacy clinical pharmacist to identify any new drug interactions or non-compliance to therapy. Therapy continues to be appropriate for disease, patient response, and medical condition. Verification of therapeutic benefit and effectiveness with current therapy was completed. Adverse events, barriers in adherence, and side effects were assessed and addressed if applicable. Will proceed with refill with no changes in therapy - patient progressing towards achieving therapeutic goals based on medication-specific laboratory parameters, disease state markers and outcomes. Carlito Berg, JoaquniD, AAHIVP Clinical Pharmacist, Oncology [facility] P: ; F: Pool: P [facility] Pool #: [id number] Mechanical Developer Prover Assessment Patient confirmed: Yes Med/dose confirmed: Yes Supplies needed: No supplies needed Missed doses: No Estimated days supply on hand: 5 Next cycle/dose due: 06/25/23 Copay amount: 0 Payment confirmed: Yes Delivery method: FedEx Signature required: Waived on patient request Delivery address: [address] [place] [address] [place] [address] Delivery date: 06/26/23 Questions or concerns for the pharmacist?: No [facility] Visit Assessment - Hematology/Oncology: Ivent complete: No Assessment to use: Refill Vaccination Assessment: Date of influenza vaccination reminder: 08/02/2022 Date of most recent vaccination assessment: 08/02/2022 Treatment Plan Information: Treatment Plan Information: 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 Avoid food 2 hours prior and 1 hour after taking Admin/Storage: Administer on an empty stomach; avoid food for at least 2 hours before and 1 hour after asciminib administration. If administering once daily, administer at approximately the same time each day; if administering twice daily, administer approximately every 12 hours. Swallow tablets whole; do not break, crush, or chew. Dispense and store in original container to protect from moisture. D/I: No major Warnings: Bone marrow suppression, cardiovascular toxicity, GI toxicity (pancreatitis), hypersensitivity HTN A/E: HTN, rash, diarrhea, increased lipase, nausea, URTI, decreased serum calcium/phosphate, increase triglycerides/cholesterol/uric acid Lab/Monitoring: CBC every 2 weeks for the first 3 months and monthly thereafter or as clinically necessary serum lipase and amylase levels monthly or as clinically necessary Estimated Start Date Info: Per Dr Otoniel Heaton Discretion Estimated Treatment Duration: Until progression or toxicity Refill Assessment: Lab monitoring inclusive of CBC, Chem-7, and other labs as pertinent for therapy: Yes Chemo cycle timing assessment: N/A Screening for infection: Yes Adverse reactions and mitigation: Yes Medication changes and interaction assessment: Yes Assessment of injection issues: N/A Additional Assessment: Assessment of continued need for prophylactic medications at regular intervals: Yes Radiology procedure timing to assess for disease progression: Yes Scheduled future appointments: Yes Katy Palma (Materials And Corrosion Engineer) [facility] 06-23-2023 Note HNO ID: [id number] Author: Otoniel Heaton, DO Service: ? Author Type: Physician Type: Progress Notes Filed: 06/23/2023 4:31 PM Note Text: Diagnosis: 1) CML chronic phase 2) MGUS HPI: The patient is a 52 yo male who has h/o MS (exacerbating/remitting type; previous medications for MS: Avonex (2005), IV Steroids (2005) and PO Steroids (taper was rough, IV no issues). Currently on Tecfidera (May 2013). Symptoms from MS had been very stable since starting Tecfidera. Had several episodes syncope since July of 2014. See cardiology note for full history. Around the time of the first syncopal event, he started having a sensation of tightness in the hands b/l. No paresthesia or numbness. Toes had same feeling but got a sensation of numbness when bending toes. Work up for this revealed IgA lambda on IF. Not detected on SPEP. Bone marrow biopsy incidentally revealed CML: 46,XY,t(9;22)(q34;q11.2)[7]/46,XY[ 13] BCR/ABL1 transcripts detected, p210 (e13a2) isoform Peripheral counts normal at time of diagnosis. No enlargement of spleen on an MRI from 10/2016. Previous therapy: 1) Started imatinib 01/05/2015. 2) Sprycel 80 mg daily. He had been tolerating Gleevec very well but he was starting to have an increasing number of transcripts on PCR testing. Transition to Sprycel but got significant headache at the 100 mg dose. Dose was therefore decreased 80 mg and since then he had no recurrence headache. Current therapy: 1) Scemblix. About a week prior to 2019 he started developing vague abdominal pain that was all throughout the abdomen. Since then it has gotten progressively worse and has been more stable now but is characterized by exacerbations where he feels a sensation of numbness and tingling in the right abdomen. It seems to start in the right back of the abdomen and come straight through to the front. He has not noticed any exacerbating or relieving factors. His appetite has been normal. He does not have any nausea. No early satiety. Reflux symptoms are under very good control. Bowels have been moving about every other day. Stools are normal in caliber and color. No sign of GI bleeding. He has been undergoing a work-up for this pain. CT abdomen and pelvis 12/05/2020: RESULT: Liver: No mass. Biliary: No bile duct dilation. Gallbladder is unremarkable. Spleen: No mass. No splenomegaly. Pancreas: No mass or duct dilation. Adrenals: No mass. Kidneys: Prominence RIGHT renal collecting system and mild RIGHT hydroureter to the level of the urinary bladder. No calculus is evident. There is no renal mass. 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 GI tract: There is mild dilatation of a few LEFT abdominal jejunal loops. No other dilated bowel is appreciated. The appendix appears normal. Lymph nodes: No abdominal or pelvic lymphadenopathy. Mesentery/Peritoneum: No ascites or mass. Retroperitoneum: No mass. Vasculature: The celiac axis and SMA are patent. The portal vein and branches, splenic vein, SMV, and hepatic veins are patent. No abdominal aortic or iliac artery aneurysm. Pelvis: No mass, ascites or fluid collection. Bones/Soft Tissues: No significant finding. Lower thorax: Unremarkable. Commercial Installer (topogram) images: Unremarkable. Ultrasound right upper quadrant and spleen 12/07/2020: Pancreas: Normal sonographic appearance. Portions obscured: tail Liver: Echotexture: Homogeneous Echogenicity: Normal Surface contour: Smooth Lesions: None. Biliary: No intrahepatic biliary duct dilation. CBD: 3 mm in diameter. Gallbladder: Normal caliber -Contents: No cholelithiasis -Wall: Normal -Other: Negative sonographic Francis's sign. Right Kidney: Within normal limits, measuring 12.6 cm in length. Spleen: Enlarged spleen is noted, measuring 15.6 cm in length. Presents for ongoing oncologic management. Had EMG in March 2021. EMG of the left lower extremity revealed chronic motor axonal loss changes consistent with intraspinal canal lesion affecting the left L5 root or segments (i.e. motor radiculopathy), mild in degree electrically with evidence of active or ongoing motor axonal loss. There was a presence of mild, active motor axonal loss limited to intrinsic foot muscles and was of unclear clinical significance and may be related to local foot trauma or secondary to shoe wear. Repeat EGD 05/2021. The examined portion of the May and duodenum were normal. Gastritis was observed characterized by mild inflammation erosions and erythema in the entire stomach. Biopsies were obtained. Normal lower third of the esophagus and middle esophagus. Both areas were biopsied. Pathology: 1. Antrum, biopsy (A) - Antral mucosa with no diagnostic alterations. - No morphologic evidence of Helicobacter pylori microorganisms. 2. Distal esophagus, biopsy (B) - Squamous epithelium and inflamed (more content not included)... [facility] 06-17-2023 Miscellaneous Notes The following approved medication requests have been transmitted electronically. Requested Prescriptions Signed Prescriptions Disp Refills omeprazole (PRILOSEC) 40 mg capsule 30 capsule 4 Sig: Take 1 capsule by mouth once daily. Authorizing Provider: OTONIEL HEATON DO Patient informed that he should start omeprazole and he does not need to space out with asciminib. Patient stated understanding. Please refill omeprazole. Thank you. Ros Ayala RN Patient informed of Dr. Heaton's response, stated understanding. Patient will stop in tomorrow for additional labs. Patient stated he is doing well on the asciminib. Patient stated he has questions about being on a PPI. Reviewed note from Dr. Heaton regarding patient needing to be on a PPI d/t ulcers. Patient stated he has not been taking his omeprazole. Patient informed he should restart omeprazole and suggested to space out the 2 medications by 2 hours apart. Patient is requesting a refill. Ros Ayala RN Called patient, there was no answer. A message was left stating Dr. Heaton would like patient to come in for additional lab work, reasoning was not left on patients VM d/t not being a patient identified VM and there are no comments in the demographics stating if we can leave a detailed message. Patient was instructed to call our office back for more information on why additional lab work is needed. Ros Ayala RN His calcium was a little high on yesterday's lab work. Please ask him to come for some additional lab work in order to determine if this is a spurious elevation or a real elevation. Otoniel Heaton DO documented in this encounter [facility] 06-02-2023 Miscellaneous Notes The following approved medication requests have been transmitted electronically. Requested Prescriptions Signed Prescriptions Disp Refills HYDROcodone-acetaminophen (NORCO) 5-325 mg per tablet 60 tablet 0 Sig: Take 1 tablet by mouth twice daily as needed for pain for up to 30 days. Authorizing Provider: EDGAR LONGORIA APRN.SANDWICH COUNTER ATTENDANT PDMP website checked and validated. All prescriptions have been APPROPRIATELY filled. No suspicious activity was identified. 06/02/2023 by Edgar Longoria CNP. Hiwot--03/28/23 Nov--06/27/23 Last refill--05/02/23 60 with 0 refill Last labs--03/17/23 Patient has been identified by name and date of : Yes, Paty Abdalla RN Date 06/02/2023 Time 11:54 am Patient phones for refill(s): Requested Prescriptions Pending Prescriptions Disp Refills HYDROcodone-acetaminophen (NORCO) 5-325 mg per tablet 60 tablet 0 Sig: Take 1 tablet by mouth twice daily as needed for pain for up to 30 days. Date of last office visit with pcp: 03/28/2023 Future appt: 06/27/2023 Last 2 Encounter Wt Readings: Date: Wt: 03/28/2023 90.3 kg (199 lb) 03/24/2023 90.5 kg (199 lb 8 oz) Previous labs/tests for medication: Blood Pressure: BUN (mg/dL) Date Value 03/17/2023 15 01/16/2022 23 Sodium (mmol/L) Date Value 03/17/2023 139 01/16/2022 140 Last 1 Encounter BP Readings: Date: BP: 03/28/2023 110/60 Liver Function: ALT (U/L) Date Value 03/17/2023 26 01/16/2022 14 AST (U/L) Date Value 03/17/2023 26 01/16/2022 21 Please advise. Thank you. Paty Abdalla RN documented in this encounter [facility] 05-30-2023 Miscellaneous Notes Patient started/will start taking asciminib on 06/03/2023. Patients last dose of sprycel will be 06/02/2023. Patient will follow-up as scheduled. This nurse will follow-up 7-10 days after patient starts medication. Ros Ayala RN Patient is currently on sprycel but treatment is being changed to asciminib d/t gastric ulcers and needing a PPI. Patient will receive asciminib on Friday. Please advise when patient can stop sprycel and switch to asciminib. Please advise if any baseline labs are needed prior to starting. Patient is scheduled for CBC/CMP/PCR for BCR/ABL on 06/16/23 with an OV on 06/23/23. From [facility] notes: Lab/Monitoring: CBC every 2 weeks for the first 3 months and monthly thereafter or as clinically necessary serum lipase and amylase levels monthly or as clinically necessary Thank you. Ros Ayala RN ORAL ANTI-CANCER AGENTS EDUCATION patient called today for oral medication education for asciminib for Chronic Myelogenous Leukemia (CML) READINESS TO LEARN Cognitive Ability: Alert and oriented Motivation to Learn: Interested Family Support: Unable to assess - Family not present Instruction Provided to: Patient Patient learns best by: Multiple Methods Factors affecting learning: None Physical limitation affecting learning: None MCCARTNEY ASSESSMENT: 1.) Verified that patient knows that the oral agents are for cancer and are taken by mouth. Yes 2.) Medication reconciliation completed during visit. No 3.) Patient is able to swallow pills. Yes 4.) Patient is able to read the drug label/information. Yes 5.) Patient is able to open the medication bottles and packages. Yes 6.) Has patient taken other pills for cancer? YES, please explain: currently on sprycel 7.) Is patient experiencing any symptoms that would affect their ability to keep down pills, for example nausea or vomiting? No 8.) Verified that patient understands prescription delivery, benefit investigation and refill process. Yes PATIENT EDUCATION: 1.) Verified that patient attended individualized instruction on chemotherapy taught by a nurse. Yes 2.) Verified that patient received Chemotherapy Safety in the Home handout, ChemoCare Medication Information handout: asciminib, Specialty Pharmacy phone numbers, Eating Hints Booklet, and ACS Oral Chemotherapy booklet: Yes, mailed out to patient DRUG-SPECIFIC EDUCATION: 1.) Verified that patient knows the drug name. Yes 2.) Verified patient understands the dose and schedule of oral chemo agent:with water, at least one hour before or two hours after a meal. Yes 3.) Verified patient knows what to do if a medication dose is missed. Yes 4.) Verified patient understands where to store the drug. Yes 5.) Verified patient understands potential side effects and how to manage them. Yes Neutropenia, Thrombocytopenia, Anemia, Fatigue, Myalgia, and Arthalgia 6.)Verified that patient understands handling precautions of oral chemo agent. Yes 7.) Verified that patient understands when and whom to call with questions. Yes 8.) Verified that patient understands where and how to return drug. Yes EVALUATE: Patient was able to demonstrate an understanding of all the above education using the teach-back method. Yes Patient instructed to call us with any questions, concerns, and/or unresolved symptoms. Will continue to follow up with patient and provide reinforcement of teaching topics as needed. Total time spent with patient: 15 minutes Total time spent on encounter: 20 minutes Ros Ayala RN documented in this encounter [facility] 05-28-2023 Miscellaneous Notes The following approved medication requests have been transmitted electronically. Requested Prescriptions Signed Prescriptions Disp Refills amphetamine-dextroamphetamine XR (ADDERALL XR) 30 mg biphasic capsule 30 capsule 0 Sig: Take 1 capsule by mouth once daily for 30 days. Authorizing Provider: EDGAR LONGORIA dextroamphetamine-amphetamine (ADDERALL) 10 mg tablet 30 tablet 0 Sig: Take 1 tablet by mouth once daily for 30 days. In the afternoon as needed for concentration impairment Authorizing Provider: EDGAR LONGORIA APRN.CNP PDMP website checked and validated. All prescriptions have been APPROPRIATELY filled. No suspicious activity was identified. 05/28/2023 by Edgar Longoria CNP. Medication refill requested by Patient Please review and advise. Requested Prescriptions Pending Prescriptions Disp Refills amphetamine-dextroamphetamine XR (ADDERALL XR) 30 mg biphasic capsule 30 capsule 0 Sig: Take 1 capsule by mouth once daily for 30 days. dextroamphetamine-amphetamine (ADDERALL) 10 mg tablet 30 tablet 0 Sig: Take 1 tablet by mouth once daily for 30 days. In the afternoon as needed for concentration impairment Last encounter with this provider: 03/28/2023 Next appt: 06/27/2023 Abeba Pettit RN documented in this encounter [facility] 05-26-2023 Note HNO ID: [id number] Author: Martha Pat RN Service: ? Author Type: Registered Nurse Type: Progress Notes Filed: 05/27/2023 11:51 AM Note Text: [facility] received prescription(s) for Scemblix from Dr. Heaton's office. Benefits investigation was conducted, indicating that a prior authorization is required. PA was approved with details listed below. Plan Name: [employer] Plan Agent/Mccartney: prior authorization submitted through [employer] online portal Phone/Fax: TERESITA reference number: TERESITA Approval Dates: 12/01/2022 -05/25/2024 Prescriptions will now be processed through [facility] Special[facility] for determination of next steps. Martha Pat RN Addendum May 27, 2023 11:51 AM : $0 copay, patient to continue Sprycel until received. Will reach out for education and delivery. Carlito Berg, PharmD, AAMEVP Clinical Pharmacist, Oncology [facility] P: ; F: Pool: P [facility] Pool #: [id number] [facility] 05-26-2023 Note HNO ID: [id number] Author: Eleanor Brown RPh Service: ? Author Type: Pharmacist Type: Progress Notes Filed: 05/30/2023 1:42 PM Note Text: [facility] received prescription(s) for Scemblix from Dr. Heaton's office. Benefits investigation was conducted, indicating that a prior authorization is required. TERESITA was approved with details listed below. Plan Name: [employer] Plan Agent/Mccartney: prior authorization submitted through [employer] portal Phone/Fax: TERESITA reference number: TERESITA Approval Dates: 12/01/2022 -05/25/2024 Pt's copay is $0. Shipment has been arranged, and pt will receive medication(s) on 06/02. Pt has been instructed to follow-up with clinic to confirm start date. A full drug interaction report was conducted, and no major interactions. I reviewed with Otoniel appropriate dose and dosing frequency, administration directions (Take 2 tablets (80 mg) by mouth once daily on an empty stomach. Avoid food 2 hours prior and 1 hour after taking ), potential side effects, ability to self-administer and proper storage and handling requirements. S/he expressed understanding of the information we provided today, and received our contact information for the pharmacy if s/he had any other questions. PAST MEDICAL HISTORY Diagnosis Date ADHD (attention deficit hyperactivity disorder) Arrhythmia Arthritis Bipolar 1 disorder (HCC) Dr. Easley [facility] Chronic obstructive pulmonary disease (HCC) 04/19/2019 Chronic obstructive pulmonary disease (HCC) CML (chronic myeloid leukemia) ([facility]) 02/13/2015 Dr. 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 Vasquez Neurologist Multiple sclerosis ([facility]) 10/2005 Dr. Mauricio Vasquez Neurologist Osteoarthritis of left knee 01/2022 Other symptoms involving abdomen and pelvis(789.9) Palpitations Schizophrenia ([facility]) Dr. Easley [facility] Snoring Substance abuse rule out 03/15/2015 Syncope Tobacco abuse ALLERGIES Allergen Reactions Aspirin GI Upset Penicillins Hives Pollen Itching Topamax [Topiramate] Other: See Comments Severe migraines Problem List Noted Noted By Resolved Resolved By Immunocompromised state ([facility]) 03/24/2023 Otoniel Heaton, DO No Gastroesophageal reflux disease with esophagitis without hemorrhage 11/12/2022 Noman Dean, DO No PAD (peripheral artery disease) ([facility]) 11/12/2022 Noman Dean, DO No OAB (overactive bladder) 10/23/2022 Miri Ahn, DIE CUTTING MACHINE OPERATOR.SANDWICH COUNTER ATTENDANT No Vitamin B12 deficiency 08/14/2022 Noman Dean, DO No Other specified disorders of bone density and structure, multiple sites 08/14/2022 Noman Dean, DO No Ocular migraine 07/25/2022 Sherrie Clark No Lateral epicondylitis of both elbows 02/13/2022 Noman Dean, DO No Bilateral elbow joint pain 02/13/2022 Noman Dean, DO No Suprapatellar bursitis of left knee 02/13/2022 Noman Dean, DO No 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/2022 Miri Ahn, DIE CUTTING MACHINE OPERATOR.SANDWICH COUNTER ATTENDANT No Schizophrenia ([facility]) 02/04/2022 Miri Ahn APRN.SANDWICH COUNTER ATTENDANT No Onychomycosis 02/04/2022 Miri Ahn APRN.SANDWICH COUNTER ATTENDANT No Essential hypertension, benign 02/04/2022 Miri Ahn, DIE CUTTING MACHINE OPERATOR.SANDWICH COUNTER ATTENDANT No Arthritis of left knee 01/2022 Noman Dean, DO No Smoldering myeloma 01/18/2021 Otoniel Heaton, DO No Splenomegaly 12/30/2020 Otoniel Heaton, DO No Pain management contract agreement 01/19/2020 Brynn Beebe APRN.LALO No Overview Signed 01/19/2020 2:24 PM by Brynn ([facility]) [place] Signed 01/19/2020 Stage 2 moderate COPD by GOLD classification ([facility]) 04/19/2019 Noman Dean, DO No Vitamin D deficiency 04/19/2019 Noman Dean, DO No RLS (restless legs syndrome) 04/19/2019 Noman Dean, DO No Personal history of colonic polyps 08/05/2018 Mariano Randall No Overview Signed 08/05/2018 4:26 PM by Mariano Randall Added automatically from request for surgery [id number] Attention deficit disorder 01/07/2018 Noman Dean, DO No Gastroesophageal reflux disease without esophagitis 01/07/2018 Noman Dean, DO No Bipolar affective disorder, current episode mixed ([facility]) 01/07/2018 Noman Dean, DO No Other hyperlipidemia 01/07/2018 Noman Dean, DO No Bilateral leg pain 01/07/2018 Noman Dean, DO No Abdominal pain, generalized 01/07/2018 Noman Dean, DO No Acute pain of left knee 04/18/2016 Tamanna Shelton, PT No Palpitations 07/18/2015 Isatu Amaya PA-C No Tobacco use 07/18/2015 Isatu Amaya PA-C No Olecranon bursitis 06/27/2015 Jersey Cole MD No Idiopathic hypersomnia, provisional 03/15/2015 Richard Brown No CML (chronic myeloid leukemia) ([facility]) 02/13/2015 Otoniel Haeton, DO No MGUS (monoclonal gammopathy of unknown significance) 02/13/2015 Otoniel Heaton, DO No Enuresis 03/02/2014 Yuri Tanner MD (more content not included)... [facility] 05-26-2023 Note HNO ID: [id number] Author: Belle Qureshi Service: ? Author Type: ? Type: Progress Notes Filed: 05/26/2023 11:16 AM Note Text: [facility] received prescription(s) for Scemblix from Dr. Heaton's office. Benefits investigation was conducted, indicating that a prior authorization is required by patient's insurance plan with [employer]. Encounter will be updated once prior authorization has been submitted by [facility]. Belle Qureshi [facility], Oncology P: / F: [facility] 05-26-2023 Miscellaneous Notes Pt. Returned call informed Dr.. Heaton received the report of the EGD that Dr. Parada performed on 05/15. He had oozing gastric ulcers that were treated and diffuse inflammation in the duodenum. Since he is going to need proton pump inhibitor therapy for the foreseeable future, Dr. Heaton recommends changing from Dasatinib to asciminib for the CML. Continue Dasatinib for now. Dr. Heaton sent new rx to the specialty pharmacy. Appears like they are obtaining a PA, once they contact him concerning shippment pt. will contact our office. Virginia Leiva LPN Left message for patient to contact office . Fawn Fontenot LPN Let him know that I received the report of the EGD that Dr. Parada performed on 05/15. He had oozing gastric ulcers that were treated and diffuse inflammation in the duodenum. Since he is going to need proton pump inhibitor therapy for the foreseeable future, I recommend changing from Dasatinib to asciminib for the CML. Continue Dasatinib for now. New Rx sent to specialty pharmacy. Otoniel Heaton DO documented in this encounter [facility] 05-26-2023 History of Present illness Narrative [facility] received prescription(s) for Scemblix from Dr. Heaton's office. Benefits investigation was conducted, indicating that a prior authorization is required by patient's insurance plan with [employer]. Encounter will be updated once prior authorization has been submitted by [facility]. Belle Qureshi CPhT [facility], Oncology P: / F: documented in this encounter [facility] 05-21-2023 Note HNO ID: [id number] Author: Belle Qureshi Service: ? Author Type: ? Type: Progress Notes Filed: 05/22/2023 7:44 AM Note Text: [facility] Refill Assessment Medication(s): Sprycel No new clinical information to review since last SPP refill encounter. Next OV scheduled 06/23. ALLERGIES Allergen Reactions Aspirin GI Upset Penicillins Hives Pollen Itching Topamax [Topiramate] Other: See Comments Severe migraines Patient's current medication list and adherence status to current therapy were reviewed by Specialty Pharmacy clinical pharmacist to identify any new drug interactions or non-compliance to therapy. Therapy continues to be appropriate for disease, patient response, and medical condition. Verification of therapeutic benefit and effectiveness with current therapy was completed. Adverse events, barriers in adherence, and side effects were assessed and addressed if applicable. Will proceed with refill with no changes in therapy - patient progressing towards achieving therapeutic goals based on medication-specific laboratory parameters, disease state markers and outcomes. Carlito Berg, JoaquinD, AAHIVP Clinical Pharmacist, Oncology [facility] P: ; F: Pool: P [facility] Pool #: [id number] Mechanical Developer Prover Assessment Patient confirmed: Yes Med/dose confirmed: Yes Supplies needed: No supplies needed Missed doses: No Estimated days supply on hand: 7 Copay amount: 0 Payment confirmed: Yes Delivery method: FedEx Signature required: Waived on patient request Delivery address: [facility] [address], [place], [address] Delivery date: 05/23/23 Questions or concerns for the pharmacist?: No [facility] Visit Assessment - Hematology/Oncology: Ivent complete: No Assessment to use: Refill Vaccination Assessment: Date of influenza vaccination reminder: 08/02/2022 Date of most recent vaccination assessment: 08/02/2022 Treatment Plan Information: Treatment Plan Information: 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 Treatment HX: Imatinib started 01/05/15 Current Therapy Sprycel 80mg ( SE BEARD @100mg dose, abated at 80mg dose) Prescriber brittany'd PPI per 07/18/21 OV note Avoid grapefruit Potential AE:Edema, BEARD, Rash, GI, Hempotologic, Infection, Neuromuscular and Musculoskeletal pain, Respiratory dypnea, pleural effusion DDI review: none new: Existing DDI Omeprazole and Sprycel, antacids 2 hrous before or after dasatanib perferred Estimated Start Date Info: Per Dr Otoniel Heaton Discretion Estimated Treatment Duration: Until progression or toxicity Refill Assessment: Lab monitoring inclusive of CBC, Chem-7, and other labs as pertinent for therapy: Yes Chemo cycle timing assessment: N/A Screening for infection: Yes Adverse reactions and mitigation: Yes Medication changes and interaction assessment: Yes Assessment of injection issues: N/A Additional Assessment: Assessment of continued need for prophylactic medications at regular intervals: Yes Radiology procedure timing to assess for disease progression: Yes Scheduled future appointments: Yes Belle Qureshi [facility] 05-21-2023 Note HNO ID: [id number] Author: Eleanor Brown RPh Service: ? Author Type: Pharmacist Type: Progress Notes Filed: 05/30/2023 1:39 PM Note Text: [facility] Discontinuation Assessment: Disease group: Oral Oncology/Hematology Medication: SPRYCEL ORAL Discontinue reason: Change of pharmacy Eleanor Brown PharmD Clinical Pharmacist, Oncology [facility] P: , F: Pool: P [facility] Pool #: [id number] [facility] 05-21-2023 History of Present illness Narrative [facility] Refill Assessment Medication(s): Sprycel Patient's current medication list and adherence status to current therapy were reviewed by Specialty Pharmacy clinical pharmacist to identify any new drug interactions or non-compliance to therapy. Therapy continues to be appropriate for disease, patient response, and medical condition. Verification of therapeutic benefit and effectiveness with current therapy was completed. Adverse events, barriers in adherence, and side effects were assessed and addressed if applicable. Will proceed with refill with no changes in therapy - patient progressing towards achieving therapeutic goals based on medication-specific laboratory parameters, disease state markers and outcomes. Mechanical Developer Prover Assessment Patient confirmed: Yes Med/dose confirmed: Yes Supplies needed: No supplies needed Missed doses: No Estimated days supply on hand: 7 Copay amount: 0 Payment confirmed: Yes Delivery method: FedEx Signature required: Waived on patient request Delivery address: [facility] [address], [place], [address] Delivery date: 05/23/23 Questions or concerns for the pharmacist?: No [facility] Visit Assessment - Hematology/Oncology: Assessment to use: Refill Vaccination Assessment: Date of influenza vaccination reminder: 08/02/2022 Date of most recent vaccination assessment: 08/02/2022 Treatment Plan Information: Treatment Plan Information: 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 Treatment HX: Imatinib started 01/05/15 Current Therapy Sprycel 80mg ( SE BEARD @100mg dose, abated at 80mg dose) Prescriber ok'd PPI per 07/18/21 OV note Avoid grapefruit Potential AE:Edema, BEARD, Rash, GI, Hempotologic, Infection, Neuromuscular and Musculoskeletal pain, Respiratory dypnea, pleural effusion DDI review: none new: Existing DDI Omeprazole and Sprycel, antacids 2 hrous before or after dasatanib perferred Estimated Start Date Info: Per Dr Otoniel Heaton Discretion Estimated Treatment Duration: Until progression or toxicity Belle Qureshi documented in this encounter [facility] 05-02-2023 Miscellaneous Notes PDMP website checked and validated. All prescriptions have been APPROPRIATELY filled. No suspicious activity was identified. 05/02/2023 by Noman Dean DO The following approved medication requests have been transmitted electronically. Requested Prescriptions Signed Prescriptions Disp Refills HYDROcodone-acetaminophen (NORCO) 5-325 mg per tablet 60 tablet 0 Sig: Take 1 tablet by mouth twice daily as needed for pain for up to 30 days. Authorizing Provider: NOMAN DEAN DO Medication refill requested by Patient Please review and advise. Requested Prescriptions Pending Prescriptions Disp Refills HYDROcodone-acetaminophen (NORCO) 5-325 mg per tablet 60 tablet 0 Sig: Take 1 tablet by mouth twice daily as needed for pain for up to 30 days. Last encounter with this provider: 03/28/2023 Next appt: 06/27/2023 Allergies: Aspirin GI Upset Penicillins Hives Pollen Itching Topamax [Topiramate] Other: See Comments Comment:Severe migraines Last 1 Encounter BP Readings: Date: BP: 03/28/2023 110/60 HEPATITIS B(1 of 3 - 3-dose series) Never done COVID-19 VACCINE(4 - Booster for Pfizer series) due on 11/20/2021 DEPRESSION ASSESSMENT due on 12/01/2022 DTAP,TDAP,TD(3 - Tdap) due on 04/27/2023 WBC (k/uL) Date Value 03/17/2023 7.97 Hemoglobin (g/dL) Date Value 03/17/2023 13.3 Platelet Count (k/uL) Date Value 03/17/2023 218 Glucose (mg/dL) Date Value 03/17/2023 101 (H) BUN (mg/dL) Date Value 03/17/2023 15 Creatinine (mg/dL) Date Value 03/17/2023 1.22 Sodium (mmol/L) Date Value 03/17/2023 139 Potassium (mmol/L) Date Value 03/17/2023 4.0 Calcium, Total (mg/dL) Date Value 03/17/2023 9.0 Alkaline Phosphatase (U/L) Date Value 03/17/2023 96 Bilirubin, Total (mg/dL) Date Value 03/17/2023 0.5 AST (U/L) Date Value 03/17/2023 26 ALT (U/L) Date Value 03/17/2023 26 Cholesterol, Total (mg/dL) Date Value 01/23/2022 149 Triglyceride (mg/dL) Date Value 01/23/2022 71 TSH (mIU/L) Date Value 08/13/2022 2.180 Current Outpatient Medications on File Prior to Visit Medication Sig amphetamine-dextroamphetamine XR (ADDERALL XR) 30 mg 24 hr capsule Take 1 capsule by mouth once daily for 30 days. dextroamphetamine-amphetamine (ADDERALL) 10 mg tablet Take 1 tablet by mouth once daily for 30 days. In the afternoon as needed for concentration impairment gabapentin (NEURONTIN) 600 mg tablet Take 1 tablet by mouth three times daily for 60 days. HYDROcodone-acetaminophen (NORCO) 5-325 mg per tablet Take 1 tablet by mouth twice daily as needed for pain for up to 30 days. Do not start before April 02, 2023. dasatinib (SPRYCEL) 80 mg tablet Take 1 tablet (80mg) by mouth once daily. linaCLOtide (LINZESS) 72 mcg capsule take 1 capsule by mouth every morning ON AN EMPTY STOMACH 30 MINUTES before EATING ANYTHING -- SWALLOW WHOLE; DO NOT CRUSH OR CHEW omeprazole (PRILOSEC) 40 mg capsule Take 1 capsule by mouth once daily. PEG 400-propylene glycol (SYSTANE ULTRA) 0.4-0.3 % ophthalmic solution Use 1 Drop in both eyes twice daily. ANORO ELLIPTA 62.5-25 mcg/actuation inhaler inhale 1 puff by mouth and INTO THE LUNGS once daily oxybutynin ER (DITROPAN XL) 15 mg 24 hr Extended Rel Tab take 1 tablet by mouth once daily atenolol (TENORMIN) 25 mg tablet take 1 tablet by mouth once daily albuterol HFA (VENTOLIN HFA) 90 mcg/actuation inhaler INHALE 2 PUFFS INSTRUCTED EVERY FOUR HOURS NEEDED FOR WHEEZING / SHORTNESS OF BREATH diclofenac (VOLTAREN) 1 % topical gel apply 2 grams TO AFFTECTED AREA three times a day sucralfate (CARAFATE) 1 gram tablet Take 1 tablet by mouth three times daily. gemfibrozil (LOPID) 600 mg tablet Take 1 tablet by mouth twice daily. dicyclomine (BENTYL) 20 mg tablet Take 1 tablet by mouth three times daily. Cholecalciferol, Vitamin D3, (VITAMIN D-3) 50 mcg (2,000 unit) cap Take 1 capsule by mouth once daily. lactobacillus rhamnosus (CULTURELLE) 15 billion cell capsule Take 1 capsule by mouth once daily. lamoTRIgine (LAMICTAL) 200 mg tablet Take 1 tablet by mouth once daily. ARIPiprazole (ABILIFY) 5 mg tablet Take 1 tablet by mouth once daily. vilazodone (VIIBRYD) 40 mg tablet Take 40 mg by mouth once daily. Abeba Wurst, RN documented in this encounter [facility] 04-23-2023 Note HNO ID: [id number] Author: Beverly Cruz Service: ? Author Type: ? Type: Progress Notes Filed: 04/25/2023 7:58 AM Note Text: [facility] Specialty Refill Assessment Medication(s): Sprycel No new clinical information to review since last SPP refill encounter. Next OV scheduled 06/23. ALLERGIES Allergen Reactions Aspirin GI Upset Penicillins Hives Pollen Itching Topamax [Topiramate] Other: See Comments Severe migraines Patient's current medication list and adherence status to current therapy were reviewed by Specialty Pharmacy clinical pharmacist to identify any new drug interactions or non-compliance to therapy. Therapy continues to be appropriate for disease, patient response, and medical condition. Verification of therapeutic benefit and effectiveness with current therapy was completed. Adverse events, barriers in adherence, and side effects were assessed and addressed if applicable. Will proceed with refill with no changes in therapy - patient progressing towards achieving therapeutic goals based on medication-specific laboratory parameters, disease state markers and outcomes. Carlito Berg, JoaquinD, AAHIVP Clinical Pharmacist, Oncology [facility] P: ; F: Pool: P [facility] Pool #: [id number] Mechanical Developer Prover Assessment Patient confirmed: Yes Med/dose confirmed: Yes Supplies needed: No supplies needed Missed doses: No Estimated days supply on hand: 4 Copay amount: 0 Delivery method: FedEx Signature required: Required (, Medicaid, patient preference) Delivery address: [address] [place] [address] [place] [id number] Delivery date: 04/26/23 Questions or concerns for the pharmacist?: No [facility] Visit Assessment - Hematology/Oncology: Ivent complete: No Assessment to use: Refill Vaccination Assessment: Date of influenza vaccination reminder: 08/02/2022 Date of most recent vaccination assessment: 08/02/2022 Treatment Plan Information: Treatment Plan Information: 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 Treatment HX: Imatinib started 01/05/15 Current Therapy Sprycel 80mg ( SE BEARD @100mg dose, abated at 80mg dose) Prescriber ok'd PPI per 07/18/21 OV note Avoid grapefruit Potential AE:Edema, BEARD, Rash, GI, Hempotologic, Infection, Neuromuscular and Musculoskeletal pain, Respiratory dypnea, pleural effusion DDI review: none new: Existing DDI Omeprazole and Sprycel, antacids 2 hrous before or after dasatanib perferred Estimated Start Date Info: Per Dr Otoniel Heaton Discretion Estimated Treatment Duration: Until progression or toxicity Refill Assessment: Lab monitoring inclusive of CBC, Chem-7, and other labs as pertinent for therapy: Yes Chemo cycle timing assessment: N/A Screening for infection: Yes Adverse reactions and mitigation: Yes Medication changes and interaction assessment: Yes Assessment of injection issues: N/A Additional Assessment: Assessment of continued need for prophylactic medications at regular intervals: Yes Radiology procedure timing to assess for disease progression: Yes Scheduled future appointments: Yes Beverly Cruz [facility] 04-02-2023 Miscellaneous Notes Source : mychart from patient requesting refill. Delivery : e-script Requested Prescriptions Pending Prescriptions Disp Refills gabapentin (NEURONTIN) 600 mg tablet 90 tablet 1 Sig: Take 1 tablet by mouth three times daily for 60 days. DX : Patient last seen 04/15/2022 Next Appointment : CROW Saenz documented in this encounter [facility] 04-02-2023 Miscellaneous Notes Signed release of records received. All requested medical records faxed to office. Fax confirmation sheet received. Sana Leo RN documented in this encounter [facility] 03-28-2023 Note HNO ID: [id number] Author: Noman Dean, DO Service: ? Author Type: Physician Type: Progress Notes Filed: 03/28/2023 10:22 AM Note Text: CC: Otoniel Desai is a 52 year old male who presents to the office for follow up HPI: ADHD, taking adderall XR in the morning. Sometimes feels his symptoms aren't well enough controlled in the afternoon/evening. Wondering if dose adjustment can be made. Denies any SE from medication. Chronic b/l leg pain and MS, taking Larose as prescribed, tolerating well. Helps with ADLs and IADLs with dressing, bathing, gait, daily functioning. No new SE with medication Has upcoming upper endoscopy scope on 06/04/[address] Parada Gastroenterology office for his chronic acid reflux and abdominal symptoms. Depression, anxiety, bipolar, stable, seeing Psychiatrist. PAST MEDICAL HISTORY Diagnosis Date ADHD (attention deficit hyperactivity disorder) Arrhythmia Arthritis Bipolar 1 disorder ([facility]) Dr. Easley [facility] Chronic obstructive pulmonary disease ([facility]) 04/19/2019 Chronic obstructive pulmonary disease ([facility]) CML (chronic myeloid leukemia) ([facility]) 02/13/2015 Dr. 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 Vasquez Neurologist Multiple sclerosis ([facility]) 10/2005 Dr. Mauricio Vasquez Neurologist Osteoarthritis of left knee 01/2022 Other symptoms involving abdomen and pelvis(789.9) Palpitations Schizophrenia ([facility]) Dr. Easley [facility] Snoring Substance abuse rule out 03/15/2015 Syncope Tobacco abuse PAST SURGICAL HISTORY Procedure Laterality Date BONE MARROW BIOPSY 12/2015 COLONOSCOPY FLX DX W/COLLJ SPEC WHEN PFRMD 07/22/2012 Colonoscopy repeat 3 years-requires MAC anesthesia COLONOSCOPY FLX DX W/COLLJ SPEC WHEN PFRMD 07/26/2015 Colonoscopy-pt requires MAC COLONOSCOPY SCRN NOT HIGH RISK 12/26/2020 COLONOSCOPY W/BIOPSY SINGLE/MULTIPLE 05/29/2006 repeat in 10 yrs EGD 12/26/2020 EGD 02/15/2021 ESOPHAGOGASTRODUODENOSCOPY TRANSORAL DIAGNOSTIC 02/03/2012 EGD ESOPHAGOGASTRODUODENOSCOPY TRANSORAL DIAGNOSTIC 02/07/2016 EGD ESOPHAGOGASTRODUODENOSCOPY TRANSORAL DIAGNOSTIC 05/01/2021 PAST SURGICAL HISTORY OF bladder growth- benign PAST SURGICAL HISTORY OF 2014 removal skin cancer right side neck TNOT ELBOW LATERAL/MEDIAL DEBRIDE OPEN Left 08/23/2022 Left elbow lateral epicondyle/tendon debridement TNOT ELBOW LATERAL/MEDIAL DEBRIDE OPEN Right 10/30/2022 Right elbow lateral epicondyle/tendon debridement TONSILLECTOMY HX Current Outpatient Medications Medication Sig dasatinib (SPRYCEL) 80 mg tablet Take 1 tablet (80mg) by mouth once daily. linaCLOtide (LINZESS) 72 mcg capsule take 1 capsule by mouth every morning ON AN EMPTY STOMACH 30 MINUTES before EATING ANYTHING -- SWALLOW WHOLE; DO NOT CRUSH OR CHEW dextroamphetamine-amphetamine (ADDERALL) 10 mg tablet Take 1 tablet by mouth once daily for 30 days. In the afternoon as needed for concentration impairment omeprazole (PRILOSEC) 40 mg capsule Take 1 capsule by mouth once daily. PEG 400-propylene glycol (SYSTANE ULTRA) 0.4-0.3 % ophthalmic solution Use 1 Drop in both eyes twice daily. ANORO ELLIPTA 62.5-25 mcg/actuation inhaler inhale 1 puff by mouth and INTO THE LUNGS once daily gabapentin (NEURONTIN) 600 mg tablet Take 1 tablet by mouth three times daily for 60 days. oxybutynin ER (DITROPAN XL) 15 mg 24 hr Extended Rel Tab take 1 tablet by mouth once daily atenolol (TENORMIN) 25 mg tablet take 1 tablet by mouth once daily albuterol HFA (VENTOLIN HFA) 90 mcg/actuation inhaler INHALE 2 PUFFS INSTRUCTED EVERY FOUR HOURS NEEDED FOR WHEEZING / SHORTNESS OF BREATH diclofenac (VOLTAREN) 1 % topical gel apply 2 grams TO AFFTECTED AREA three times a day sucralfate (CARAFATE) 1 gram tablet Take 1 tablet by mouth three times daily. gemfibrozil (LOPID) 600 mg tablet Take 1 tablet by mouth twice daily. dicyclomine (BENTYL) 20 mg tablet Take 1 tablet by mouth three times daily. Cholecalciferol, Vitamin D3, (VITAMIN D-3) 50 mcg (2,000 unit) cap Take 1 capsule by mouth once daily. lactobacillus rhamnosus (CULTURELLE) 15 billion cell capsule Take 1 capsule by mouth once daily. lamoTRIgine (LAMICTAL) 200 mg tablet Take 1 tablet by mouth once daily. ARIPiprazole (ABILIFY) 5 mg tablet Take 1 tablet by mouth once daily. vilazodone (VIIBRYD) 40 mg tablet Take 40 mg by mouth once daily. amphetamine-dextroamphetamine XR (ADDERALL XR) 30 mg 24 hr capsule Take 1 capsule by mouth once daily for 30 days. [START ON 04/02/2023] HYDROcodone-acetaminophen (NORCO) 5-325 mg per tablet Take 1 tablet by mouth twice daily as needed for pain for up to 30 days. Do not start before April 02, 2023. Current Facility-Administered Medications Medication Dose Route Frequency (more content not included)... [facility] 03-28-2023 Instructions Noman Dean DO - 03/28/2023 9:28 AM EDT Fasting labs in [address] get [address] Heaton's labs drawn before our appt documented in this encounter [facility] 03-28-2023 History of Present illness Narrative CC: Otoniel Desai is a 52 year old male who presents to the office for follow up HPI: ADHD, taking adderall XR in the morning. Sometimes feels his symptoms aren't well enough controlled in the afternoon/evening. Wondering if dose adjustment can be made. Denies any SE from medication. Chronic b/l leg pain and MS, taking Larose as prescribed, tolerating well. Helps with ADLs and IADLs with dressing, bathing, gait, daily functioning. No new SE with medication Has upcoming upper endoscopy scope on 06/04/[address] Parada Gastroenterology office for his chronic acid reflux and abdominal symptoms. Depression, anxiety, bipolar, stable, seeing Psychiatrist. PAST MEDICAL HISTORY Diagnosis Date ADHD (attention deficit hyperactivity disorder) Arrhythmia Arthritis Bipolar 1 disorder ([facility]) Dr. Easley [facility] Chronic obstructive pulmonary disease ([facility]) 04/19/2019 Chronic obstructive pulmonary disease ([facility]) CML (chronic myeloid leukemia) ([facility]) 02/13/2015 Dr. 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 Vasquez Neurologist Multiple sclerosis ([facility]) 10/2005 Dr. Mauricio Vasquez Neurologist Osteoarthritis of left knee 01/2022 Other symptoms involving abdomen and pelvis(789.9) Palpitations Schizophrenia ([facility]) Dr. Easley [facility] Snoring Substance abuse rule out 03/15/2015 Syncope Tobacco abuse PAST SURGICAL HISTORY Procedure Laterality Date BONE MARROW BIOPSY 12/2015 COLONOSCOPY FLX DX W/COLLJ SPEC WHEN PFRMD 07/22/2012 Colonoscopy repeat 3 years-requires MAC anesthesia COLONOSCOPY FLX DX W/COLLJ SPEC WHEN PFRMD 07/26/2015 Colonoscopy-pt requires MAC COLONOSCOPY SCRN NOT HIGH RISK 12/26/2020 COLONOSCOPY W/BIOPSY SINGLE/MULTIPLE 05/29/2006 repeat in 10 yrs EGD 12/26/2020 EGD 02/15/2021 ESOPHAGOGASTRODUODENOSCOPY TRANSORAL DIAGNOSTIC 02/03/2012 EGD ESOPHAGOGASTRODUODENOSCOPY TRANSORAL DIAGNOSTIC 02/07/2016 EGD ESOPHAGOGASTRODUODENOSCOPY TRANSORAL DIAGNOSTIC 05/01/2021 PAST SURGICAL HISTORY OF bladder growth- benign PAST SURGICAL HISTORY OF 2015 removal skin cancer right side neck TNOT ELBOW LATERAL/MEDIAL DEBRIDE OPEN Left 08/23/2022 Left elbow lateral epicondyle/tendon debridement TNOT ELBOW LATERAL/MEDIAL DEBRIDE OPEN Right 10/30/2022 Right elbow lateral epicondyle/tendon debridement TONSILLECTOMY HX Current Outpatient Medications Medication Sig dasatinib (SPRYCEL) 80 mg tablet Take 1 tablet (80mg) by mouth once daily. linaCLOtide (LINZESS) 72 mcg capsule take 1 capsule by mouth every morning ON AN EMPTY STOMACH 30 MINUTES before EATING ANYTHING -- SWALLOW WHOLE; DO NOT CRUSH OR CHEW dextroamphetamine-amphetamine (ADDERALL) 10 mg tablet Take 1 tablet by mouth once daily for 30 days. In the afternoon as needed for concentration impairment omeprazole (PRILOSEC) 40 mg capsule Take 1 capsule by mouth once daily. PEG 400-propylene glycol (SYSTANE ULTRA) 0.4-0.3 % ophthalmic solution Use 1 Drop in both eyes twice daily. ANORO ELLIPTA 62.5-25 mcg/actuation inhaler inhale 1 puff by mouth and INTO THE LUNGS once daily gabapentin (NEURONTIN) 600 mg tablet Take 1 tablet by mouth three times daily for 60 days. oxybutynin ER (DITROPAN XL) 15 mg 24 hr Extended Rel Tab take 1 tablet by mouth once daily atenolol (TENORMIN) 25 mg tablet take 1 tablet by mouth once daily albuterol HFA (VENTOLIN HFA) 90 mcg/actuation inhaler INHALE 2 PUFFS INSTRUCTED EVERY FOUR HOURS NEEDED FOR WHEEZING / SHORTNESS OF BREATH diclofenac (VOLTAREN) 1 % topical gel apply 2 grams TO AFFTECTED AREA three times a day sucralfate (CARAFATE) 1 gram tablet Take 1 tablet by mouth three times daily. gemfibrozil (LOPID) 600 mg tablet Take 1 tablet by mouth twice daily. dicyclomine (BENTYL) 20 mg tablet Take 1 tablet by mouth three times daily. Cholecalciferol, Vitamin D3, (VITAMIN D-3) 50 mcg (2,000 unit) cap Take 1 capsule by mouth once daily. lactobacillus rhamnosus (CULTURELLE) 15 billion cell capsule Take 1 capsule by mouth once daily. lamoTRIgine (LAMICTAL) 200 mg tablet Take 1 tablet by mouth once daily. ARIPiprazole (ABILIFY) 5 mg tablet Take 1 tablet by mouth once daily. vilazodone (VIIBRYD) 40 mg tablet Take 40 mg by mouth once daily. amphetamine-dextroamphetamine XR (ADDERALL XR) 30 mg 24 hr capsule Take 1 capsule by mouth once daily for 30 days. [START ON 04/02/2023] HYDROcodone-acetaminophen (NORCO) 5-325 mg per tablet Take 1 tablet by mouth twice daily as needed for pain for up to 30 days. Do not start before April 02, 2023. Current Facility-Administered Medications Medication Dose Route Frequency perflutren lipid microspheres 1.3 mL in NaCl (PF) 0.9% 10 mL injection (DEFINITY) INTRAVENOUS DIRECTED PRN sodium chloride 0.9 % (flush) 10 mL (BD POSIFLUSH) 10 mL INTRAVENOUS DIRECTED PRN perflutren lipid microspheres 1.3 mL in NaCl (PF) 0.9% 10 mL injection (DEFINITY) INTRAVENOUS DIRECTED PRN sodium chloride 0.9 % (flush) 10 mL (BD POSIFLUSH) 10 mL INTRAVENOUS DIRECTED PRN ALLERGIES Allergen Reactions Aspirin GI Upset Penicillins Hives Pollen Itching Topamax [Topiramate] Other: See Comments Severe migraines Social History Tobacco Use Smoking status: Every Day Packs/day: 0.50 Years: 34.00 Pack years: 17.00 Types: Cigarettes Smokeless tobacco: Never Tobacco comments: Started age 18 Vaping Use Vaping Use: Never used Substance Use Topics Alcohol use: Not Currently Drug use: No ROS: See HPI PE: BP 110/60 Pulse 76 Temp (Src) 96.5 (Left Tympanic) Resp 16 Wt 199 lb (90.3kg) Gen: A&OX3, NAD, non-toxic appearing HEENT: PERRLA, EOMs intact b/l, nares without drainage, pharynx without erythema, exudate, lesions, or drainage. Uvula midline. Neck: No LAD, no thyromegaly, no meningismus. CV: RRR, no murmur Lungs: CTA b/l, no wheezing Antalgic gait No edema, normal pulses Abd: soft, NT, normal. BS ASSESSMENT/PLAN: 1. Attention deficit disorder, unspecified hyperactivity presence - ICD9: 314.00, ICD10: F98.8 (primary diagnosis) rx refilled, chronic, stable, helping symptoms symptom management - DEXTROAMPHETAMINE-AMPHETAMINE ER 30 MG 24HR CAPSULE,EXTEND RELEASE - DEXTROAMPHETAMINE-AMPHETAMINE 10 MG TABLET 2. Bilateral leg pain - ICD9: 729.5, ICD10: M79.604, M79.605 rx refilled, chronic, stable, helping symptoms symptom management - HYDROCODONE 5 MG-ACETAMINOPHEN 325 MG TABLET - TSH BLD - PARKING FOR HANDICAPPED 3. Multiple sclerosis (HCC) - ICD9: 340, ICD10: G35 rx refilled, chronic, stable, helping symptoms symptom management F/u with Neurologist. - HYDROCODONE 5 MG-ACETAMINOPHEN 325 MG TABLET - PARKING FOR HANDICAPPED 4. CML (chronic myeloid leukemia) (HCC) - ICD9: 205.10, ICD10: C92.10 - recheck labs, f/u with Dr. Heaton as scheduled. - HGB A1C - TSH BLD - PARKING FOR HANDICAPPED 5. Vitamin B12 deficiency - ICD9: 266.2, ICD10: E53.8 - recheck labs, continue supplement - VITAMIN B12 BLOOD 6. Vitamin D deficiency - ICD9: 268.9, ICD10: E55.9 Recheck labs, continue supplement. - VITAMIN D 25 HYDROXY - TSH BLD 7. Other hyperlipidemia - ICD9: 272.4, ICD10: E78.49 Recheck labs, need for diet control - LIPID PANEL BASIC - HGB A1C - TSH BLD 8. Hyperglycemia - ICD9: 790.29, ICD10: R73.9 Recheck labs - HGB A1C 9. Attention deficit disorder, unspecified hyperactivity presence - ICD9: 314.00, ICD10: F98.8 - see above - DEXTROAMPHETAMINE-AMPHETAMINE 10 MG TABLET 10. PAD (peripheral artery disease) ([facility]) - ICD9: 443.9, ICD10: I73.9 - f/u with specialist 11. Immunocompromised state (HCC) - ICD9: 279.9, ICD10: D84.9 See above 12. Other schizophrenia ([facility]) - ICD9: 295.80, ICD10: F20.89 F/u with Psychiatrist for mgmt of symptoms and medications Noman Dean DO PDMP website checked and validated. All prescriptions have been APPROPRIATELY filled. No suspicious activity was identified. 03/28/2023 by Noman Dean DO Return if no improvement. Follow up with Noman Dean DO. To ER if develops chest pain, shortness of breath Discussed risks, benefits, alternatives, and potential side effects of medications. Patient/Guardian expressed understanding and agreed with the plan. See patient instructions. Noman Dean DO [address] [place] [address] documented in this encounter [facility] 03-26-2023 Note HNO ID: [id number] Author: Marcia Lezama Service: ? Author Type: ? Type: Progress Notes Filed: 03/27/2023 7:32 AM Note Text: [facility] Refill Assessment Medication(s): Sprycel Reviewed OV note on 03/24. Plan to continue Sprycel and recheck in 3 - 4 months if still effective. Labs reviewed. Next clinic visit scheduled 06/23. ALLERGIES Allergen Reactions Aspirin GI Upset Penicillins Hives Pollen Itching Topamax [Topiramate] Other: See Comments Severe migraines Patient's current medication list and adherence status to current therapy were reviewed by Specialty Pharmacy clinical pharmacist to identify any new drug interactions or non-compliance to therapy. Therapy continues to be appropriate for disease, patient response, and medical condition. Verification of therapeutic benefit and effectiveness with current therapy was completed. Adverse events, barriers in adherence, and side effects were assessed and addressed if applicable. Will proceed with refill with no changes in therapy - patient progressing towards achieving therapeutic goals based on medication-specific laboratory parameters, disease state markers and outcomes. Carlito Berg, PharmD, AAHIVP Clinical Pharmacist, Oncology [facility] P: ; F: Pool: P [facility] Pool #: [id number] Mechanical Developer Prover Assessment Patient confirmed: Yes Med/dose confirmed: Yes Supplies needed: No supplies needed Missed doses: No Estimated days supply on hand: 5 Copay amount: 0 Copay form of payment: Credit card on file Payment confirmed: Yes Delivery method: FedEx Signature required: No Delivery address: [address] [place] [address] [place] [id number] Delivery date: 03/28/23 Questions or concerns for the pharmacist?: No [facility] Visit Assessment - Hematology/Oncology: Ivent complete: No Assessment to use: Refill Vaccination Assessment: Date of influenza vaccination reminder: 08/02/2022 Date of most recent vaccination assessment: 08/02/2022 Treatment Plan Information: Treatment Plan Information: 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 Treatment HX: Imatinib started 01/05/15 Current Therapy Sprycel 80mg ( SE BEARD @100mg dose, abated at 80mg dose) Prescriber ok'd PPI per 07/18/21 OV note Avoid grapefruit Potential AE:Edema, BEARD, Rash, GI, Hempotologic, Infection, Neuromuscular and Musculoskeletal pain, Respiratory dypnea, pleural effusion DDI review: none new: Existing DDI Omeprazole and Sprycel, antacids 2 hrous before or after dasatanib perferred Estimated Start Date Info: Per Dr Otoniel Heaton Discretion Estimated Treatment Duration: Until progression or toxicity Refill Assessment: Lab monitoring inclusive of CBC, Chem-7, and other labs as pertinent for therapy: Yes Chemo cycle timing assessment: N/A Screening for infection: Yes Adverse reactions and mitigation: Yes Medication changes and interaction assessment: Yes Assessment of injection issues: N/A Additional Assessment: Assessment of continued need for prophylactic medications at regular intervals: Yes Radiology procedure timing to assess for disease progression: Yes Scheduled future appointments: Yes Marcia Lezama [facility] 03-26-2023 History of Present illness Narrative [facility] Ref[facility] Assessment Medication(s): Sprycel Patient's current medication list and adherence status to current therapy were reviewed by Specialty Pharmacy clinical pharmacist to identify any new drug interactions or non-compliance to therapy. Therapy continues to be appropriate for disease, patient response, and medical condition. Verification of therapeutic benefit and effectiveness with current therapy was completed. Adverse events, barriers in adherence, and side effects were assessed and addressed if applicable. Will proceed with refill with no changes in therapy - patient progressing towards achieving therapeutic goals based on medication-specific laboratory parameters, disease state markers and outcomes. Mechanical Developer Prover Assessment Patient confirmed: Yes Med/dose confirmed: Yes Supplies needed: No supplies needed Missed doses: No Estimated days supply on hand: 5 Copay amount: 0 Copay form of payment: Credit card on file Payment confirmed: Yes Delivery method: FedEx Signature required: No Delivery address: [address] [place] [address] [place] [id number] Delivery date: 03/28/23 Questions or concerns for the pharmacist?: No [facility] Visit Assessment - Hematology/Oncology: Assessment to use: Refill Vaccination Assessment: Date of influenza vaccination reminder: 08/02/2022 Date of most recent vaccination assessment: 08/02/2022 Treatment Plan Information: Treatment Plan Information: 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 Treatment HX: Imatinib started 01/05/15 Current Therapy Sprycel 80mg ( SE BEARD @100mg dose, abated at 80mg dose) Prescriber ok'd PPI per 07/18/21 OV note Avoid grapefruit Potential AE:Edema, EBARD, Rash, GI, Hempotologic, Infection, Neuromuscular and Musculoskeletal pain, Respiratory dypnea, pleural effusion DDI review: none new: Existing DDI Omeprazole and Sprycel, antacids 2 hrous before or after dasatanib perferred Estimated Start Date Info: Per Dr Otoniel Heaton Discretion Estimated Treatment Duration: Until progression or toxicity Marcia Lezama documented in this encounter [facility] 03-24-2023 Note HNO ID: [id number] Author: Otoniel Heaton, DO Service: ? Author Type: Physician Type: Progress Notes Filed: 03/24/2023 10:36 AM Note Text: Diagnosis: 1) CML chronic phase 2) MGUS HPI: The patient is a 52 yo male who has h/o MS (exacerbating/remitting type; previous medications for MS: Avonex (2005), IV Steroids (2005) and PO Steroids (taper was rough, IV no issues). Currently on Tecfidera (May 2013). Symptoms from MS had been very stable since starting Tecfidera. Had several episodes syncope since July of 2014. See cardiology note for full history. Around the time of the first syncopal event, he started having a sensation of tightness in the hands b/l. No paresthesia or numbness. Toes had same feeling but got a sensation of numbness when bending toes. Work up for this revealed IgA lambda on IF. Not detected on SPEP. Bone marrow biopsy incidentally revealed CML: 46,XY,t(9;22)(q34;q11.2)[7]/46,XY[ 13] BCR/ABL1 transcripts detected, p210 (e13a2) isoform Peripheral counts normal at time of diagnosis. No enlargement of spleen on an MRI from 10/2016. Previous therapy: 1) Started imatinib 01/05/2015. Current therapy: 1) Sprycel 80 mg daily. He had been tolerating Gleevec very well but he was starting to have an increasing number of transcripts on PCR testing. Transition to Sprycel but got significant headache at the 100 mg dose. Dose was therefore decreased 80 mg and since then he had no recurrence headache. About a week prior to 2019 he started developing vague abdominal pain that was all throughout the abdomen. Since then it has gotten progressively worse and has been more stable now but is characterized by exacerbations where he feels a sensation of numbness and tingling in the right abdomen. It seems to start in the right back of the abdomen and come straight through to the front. He has not noticed any exacerbating or relieving factors. His appetite has been normal. He does not have any nausea. No early satiety. Reflux symptoms are under very good control. Bowels have been moving about every other day. Stools are normal in caliber and color. No sign of GI bleeding. He has been undergoing a work-up for this pain. CT abdomen and pelvis 12/05/2020: RESULT: Liver: No mass. Biliary: No bile duct dilation. Gallbladder is unremarkable. Spleen: No mass. No splenomegaly. Pancreas: No mass or duct dilation. Adrenals: No mass. Kidneys: Prominence RIGHT renal collecting system and mild RIGHT hydroureter to the level of the urinary bladder. No calculus is evident. There is no renal mass. 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 GI tract: There is mild dilatation of a few LEFT abdominal jejunal loops. No other dilated bowel is appreciated. The appendix appears normal. Lymph nodes: No abdominal or pelvic lymphadenopathy. Mesentery/Peritoneum: No ascites or mass. Retroperitoneum: No mass. Vasculature: The celiac axis and SMA are patent. The portal vein and branches, splenic vein, SMV, and hepatic veins are patent. No abdominal aortic or iliac artery aneurysm. Pelvis: No mass, ascites or fluid collection. Bones/Soft Tissues: No significant finding. Lower thorax: Unremarkable. Commercial Installer (topogram) images: Unremarkable. Ultrasound right upper quadrant and spleen 12/07/2020: Pancreas: Normal sonographic appearance. Portions obscured: tail Liver: Echotexture: Homogeneous Echogenicity: Normal Surface contour: Smooth Lesions: None. Biliary: No intrahepatic biliary duct dilation. CBD: 3 mm in diameter. Gallbladder: Normal caliber -Contents: No cholelithiasis -Wall: Normal -Other: Negative sonographic Francis's sign. Right Kidney: Within normal limits, measuring 12.6 cm in length. Spleen: Enlarged spleen is noted, measuring 15.6 cm in length. Presents for ongoing oncologic management. Had EMG in March 2021. EMG of the left lower extremity revealed chronic motor axonal loss changes consistent with intraspinal canal lesion affecting the left L5 root or segments (i.e. motor radiculopathy), mild in degree electrically with evidence of active or ongoing motor axonal loss. There was a presence of mild, active motor axonal loss limited to intrinsic foot muscles and was of unclear clinical significance and may be related to local foot trauma or secondary to shoe wear. Repeat EGD 05/2021. The examined portion of the May and duodenum were normal. Gastritis was observed characterized by mild inflammation erosions and erythema in the entire stomach. Biopsies were obtained. Normal lower third of the esophagus and middle esophagus. Both areas were biopsied. Pathology: 1. Antrum, biopsy (A) - Antral mucosa with no diagnostic alterations. - No morphologic evidence of Helicobacter pylori microorganisms. 2. Distal esophagus, biopsy (B) - Squamous epithelium and inflamed cardia-type muc (more content not included)... [facility] 03-24-2023 History of Present illness Narrative Diagnosis: 1) CML chronic phase 2) MGUS HPI: The patient is a 52 yo male who has h/o MS (exacerbating/remitting type; previous medications for MS: Avonex (2005), IV Steroids (2005) and PO Steroids (taper was rough, IV no issues). Currently on Tecfidera (May 2013). Symptoms from MS had been very stable since starting Tecfidera. Had several episodes syncope since July of 2014. See cardiology note for full history. Around the time of the first syncopal event, he started having a sensation of tightness in the hands b/l. No paresthesia or numbness. Toes had same feeling but got a sensation of numbness when bending toes. Work up for this revealed IgA lambda on IF. Not detected on SPEP. Bone marrow biopsy incidentally revealed CML: 46,XY,t(9;22)(q34;q11.2)[7]/46,XY[ 13] BCR/ABL1 transcripts detected, p210 (e13a2) isoform Peripheral counts normal at time of diagnosis. No enlargement of spleen on an MRI from 10/2016. Previous therapy: 1) Started imatinib 01/05/2015. Current therapy: 1) Sprycel 80 mg daily. He had been tolerating Gleevec very well but he was starting to have an increasing number of transcripts on PCR testing. Transition to Sprycel but got significant headache at the 100 mg dose. Dose was therefore decreased 80 mg and since then he had no recurrence headache. About a week prior to 2019 he started developing vague abdominal pain that was all throughout the abdomen. Since then it has gotten progressively worse and has been more stable now but is characterized by exacerbations where he feels a sensation of numbness and tingling in the right abdomen. It seems to start in the right back of the abdomen and come straight through to the front. He has not noticed any exacerbating or relieving factors. His appetite has been normal. He does not have any nausea. No early satiety. Reflux symptoms are under very good control. Bowels have been moving about every other day. Stools are normal in caliber and color. No sign of GI bleeding. He has been undergoing a work-up for this pain. CT abdomen and pelvis 12/05/2020: RESULT: Liver: No mass. Biliary: No bile duct dilation. Gallbladder is unremarkable. Spleen: No mass. No splenomegaly. Pancreas: No mass or duct dilation. Adrenals: No mass. Kidneys: Prominence RIGHT renal collecting system and mild RIGHT hydroureter to the level of the urinary bladder. No calculus is evident. There is no renal mass. 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 GI tract: There is mild dilatation of a few LEFT abdominal jejunal loops. No other dilated bowel is appreciated. The appendix appears normal. Lymph nodes: No abdominal or pelvic lymphadenopathy. Mesentery/Peritoneum: No ascites or mass. Retroperitoneum: No mass. Vasculature: The celiac axis and SMA are patent. The portal vein and branches, splenic vein, SMV, and hepatic veins are patent. No abdominal aortic or iliac artery aneurysm. Pelvis: No mass, ascites or fluid collection. Bones/Soft Tissues: No significant finding. Lower thorax: Unremarkable. Commercial Installer (topogram) images: Unremarkable. Ultrasound right upper quadrant and spleen 12/07/2020: Pancreas: Normal sonographic appearance. Portions obscured: tail Liver: Echotexture: Homogeneous Echogenicity: Normal Surface contour: Smooth Lesions: None. Biliary: No intrahepatic biliary duct dilation. CBD: 3 mm in diameter. Gallbladder: Normal caliber -Contents: No cholelithiasis -Wall: Normal -Other: Negative sonographic Francis's sign. Right Kidney: Within normal limits, measuring 12.6 cm in length. Spleen: Enlarged spleen is noted, measuring 15.6 cm in length. Presents for ongoing oncologic management. Had EMG in March 2021. EMG of the left lower extremity revealed chronic motor axonal loss changes consistent with intraspinal canal lesion affecting the left L5 root or segments (i.e. motor radiculopathy), mild in degree electrically with evidence of active or ongoing motor axonal loss. There was a presence of mild, active motor axonal loss limited to intrinsic foot muscles and was of unclear clinical significance and may be related to local foot trauma or secondary to shoe wear. Repeat EGD 05/2021. The examined portion of the May and duodenum were normal. Gastritis was observed characterized by mild inflammation erosions and erythema in the entire stomach. Biopsies were obtained. Normal lower third of the esophagus and middle esophagus. Both areas were biopsied. Pathology: 1. Antrum, biopsy (A) - Antral mucosa with no diagnostic alterations. - No morphologic evidence of Helicobacter pylori microorganisms. 2. Distal esophagus, biopsy (B) - Squamous epithelium and inflamed cardia-type mucosa, negative for intestinal metaplasia or dysplasia. 3. Mid esophagus, biopsy (C) - Squamous epithelium with no diagnostic alteration. Presents for ongoing oncologic management. Interim history: Still on omeprazole 40 mg daily. Has chronic right-sided abdominal pain. He is very frustrated that no one can come up with the etiology. He has been through multiple studies and is seen several providers. Off tecfidera since last July to see if contributing to abdominal pain. Changed neurologists to [place]. MS symptoms flaring. Tolerating Sprycel well with no side effect that he can determine. He takes it on a very consistent basis. PMH, medications and allergies as below personally reviewed by me today. Any changes documented in appropriate section. ROS: Constitutional: No recent fever. No drenching night sweats. Chronic fatigue. HEENT: No recent change in voice, vision or hearing. Resp: Denies cough, wheeze and hemoptysis. CVS: Denies LE edema. GI: See above. : No dysuria or gross hematuria. No symptoms of bladder outlet obstruction. Endo: No hot flashes. Derm: No rash ir itch currently. Psych: Stable mood. PHYSICAL EXAM: Vitals: Blood pressure 111/69, pulse 67, height 183.3 cm (6' 0.18 ), weight 90.5 kg (199 lb 8 oz), SpO2 99 %. Well-appearing and in no acute distress. EYES: Sclerae are anicteric bilaterally. NECK: Supple. LYMPHATIC: There is no palpable cervical or supraclavicular adenopathy. RESPIRATORY: Inspiratory breath sounds are of diminished intensity in all sotelo. No rales, wheezes or rhonchi. CARDIOVASCULAR: Rhythm is regular. ABDOMEN: The abdomen is nondistended. No organomegaly. No tenderness. Extremities: No swelling or edema. SKIN: No jaundice or rash currently. NEUROLOGIC: general production manager II-XII are grossly intact. No focal motor weakness. LABS: Component Latest Ref Rng & Units 12/16/2022 03/17/2023 WBC 3.70 - 11.00 k/uL 8.15 7.97 RBC 4.20 - 6.00 m/uL 4.96 4.61 Hemoglobin 13.0 - 17.0 g/dL 14.3 13.3 Hematocrit 39.0 - 51.0 % 43.3 40.7 MCV 80.0 - 100.0 fL 87.3 88.3 MCH 26.0 - 34.0 pg 28.8 28.9 MCHC 30.5 - 36.0 g/dL 33.0 32.7 RDW-CV 11.5 - 15.0 % 14.4 14.8 Platelet Count 150 - 400 k/uL 200 218 MPV 9.0 - 12.7 fL 10.9 10.8 Neut% % 41.6 56.1 Abs Neut (ANC) 1.45 - 7.50 k/uL 3.38 4.48 Lymph% % 46.6 31.0 Abs Lymph 1.00 - 4.00 k/uL 3.80 2.47 Hays% % 9.7 10.2 Abs Hays <0.87 k/uL 0.79 0.81 Eosin% % 1.7 1.8 Abs Eosin <0.46 k/uL 0.14 0.14 Baso% % 0.2 0.4 Abs Baso <0.11 k/uL <0.03 0.03 Immature Gran % % 0.2 0.5 IMMATURE GRANS (ABS) <0.10 k/uL <0.03 0.04 NRBC /100 WBC 0.0 0.0 Absolute nRBC <0.01 k/uL <0.01 <0.01 DTYPE Auto Auto Protein, Total 6.3 - 8.0 g/dL 6.7 6.9 Albumin 3.9 - 4.9 g/dL 4.9 4.6 Calcium 8.5 - 10.2 mg/dL 9.7 9.0 Bilirubin, Total 0.2 - 1.3 mg/dL 0.3 0.5 Alkaline Phosphatase 38 - 113 U/L 94 96 AST 14 - 40 U/L 14 26 ALT 10 - 54 U/L 16 26 Glucose 74 - 99 mg/dL 119 (H) 101 (H) BUN 9 - 24 mg/dL 15 15 Creatinine 0.73 - 1.22 mg/dL 1.16 1.22 Sodium 136 - 144 mmol/L 138 139 Potassium 3.7 - 5.1 mmol/L 3.8 4.0 Chloride 97 - 105 mmol/L 103 103 CO2 22 - 30 mmol/L 26 21 (L) Anion Gap 9 - 18 mmol/L 9 15 eGFR >=60 mL/min/1.73m 76 71 Lipase 16 - 61 U/L 28 %IS went from 0.0133-0.0044 as of 05/17/2022. MR went from 3.88-4.36 as of 05/17/2022. PATHOLOGY: Bone marrow biopsy 01/03/2021: A Congo Red stain performed on the clot section is negative for amyloid. FINAL DIAGNOSIS BONE MARROW, ASPIRATE SMEAR AND CORE BIOPSY, WITH CLOT SECTION AND PERIPHERAL BLOOD SMEAR: - INVOLVED BY PLASMA CELL NEOPLASM WITH 5-10% PLASMA CELLS - CELLULAR BONE MARROW WITH TRILINEAGE HEMATOPOIESIS AND OCCASIONAL HYPOLOBATE MEGAKARYOCYTES. - STAINABLE IRON PRESENT. - SEE COMMENT. Comment: The patient is a 50-year-old male with a history of CML, IgA lambda monoclonal gammopathy and multiple sclerosis. The bone marrow is involved by a plasma cell neoplasm with 5-10% lambda monotypic plasma cells identified by immunohistochemistry performed on the clot section. The bone marrow also shows occasional hypolobate megakaryocytes, raising the possibility of persistent CML. 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 -Serum monoclonal protein by immunofixation only. Not quantifiable by electrophoresis. -Small increase in serum lambda. -Repeat bone marrow biopsy 01/2021 suggested some progression with areas up to 10% plasma cells. -Whole-body bone CT 02/01/2021 revealed no lytic bone lesions. Plan: -Recheck in 6 months. -Consider repeat bone marrow biopsy at that time. (C92.10) CML (chronic myeloid leukemia) (HCC) Assessment: -Diagnosis was incidental on work up for monoclonal protein--was found to have t(9;22) on cytogenetics. -There was a complete cytogenetic response at 1 year (repeat bone marrow biopsy January 2016). -Increasing transcript number on Gleevec. -Continues to tolerate Sprycel at 80 mg daily without side effect. -Was losing molecular response then found out he had been off Sprycel for at least a month in the spring 2018. -Now again taking consistently with no symptomatic side effect. -Has been on PPI intermittently for reflux symptoms. Most recent EGD showed persistent gastritis. -Repeat CT in May demonstrated normal size spleen. -MRI 4.32 03/2022. Reviewed this finding with him. Ideally would like to see him 4.7 or greater but very small difference between this value in the last 1. We discussed rotating to Scemblix which would not have any interaction with PPI. Since he is used to Sprycel and the numbers are close, he prefers to continue Sprycel for the time being. Our plan will be to recheck in 3 to 4 months. If he is losing effect and we will rotate drugs Plan: -Continue Sprycel at 80 mg daily. -Repeat PCR in 3-4 months. Portions of this documentation were copied and pasted from previous office visit notes in order to provide a cohesive continuity of the history. The note has been reviewed and edited and updated as necessary. I spent a total of 20 minutes on the date of the service which included preparing to see the patient, [id number] patient care, completing clinical documentation, obtaining and/or reviewing separately obtained history, performing a medically appropriate examination, counseling and educating the patient/family/caregiver, ordering medications, tests, or procedures, independently interpreting results (not separately reported), and communicating results to the patient/family/caregiver. Otoniel Heaton DO documented in this encounter [facility] 03-18-2023 Note HNO ID: [id number] Author: RT Arie(R) Service: ? Author Type: Technologist Type: Progress Notes Filed: 03/18/2023 9:41 AM Note Text: Radiology Service Progress Note DATE OF SERVICE: March 18, 2023 TIME: 9:41 AM PATIENT IDENTITY VERIFICATION COMPLETED USING TWO (2) STANDARD IDENTIFIERS: Name and Date of confirmed by patient verbally. FALL SCREENING: Has the patient had 2 falls in the last year or 1 fall with injury or currently using an Ambulatory Assistive Device (Walker, Cane, Wheelchair, Crutches, etc.)? No PATIENT GENDER DATA: Male PATIENT RELEVANT IMPLANT DATA REVIEWED: Yes ALLERGIES: Reviewed and unchanged CONTRAST ALLERGY: NO. EXAM: MRI - CONTRAST TYPE: GROUP II PERIPHERAL IV DATA: Ambulatory: A peripheral IV was started in the Left antecubital site with a Angio cath: 22 gauge. RADIOLOGY DEPARTMENT: MR; Exam(s) Completed: Head: Multiple Sclerosis SIGNATURE: RT Arie(Colten) PATIENT NAME: Otoniel Desai DATE: March 18, 2023 TIME: 9:41 AM [facility] 03-18-2023 History of Present illness Narrative Radiology Service Progress Note DATE OF SERVICE: March 18, 2023 TIME: 9:41 AM PATIENT IDENTITY VERIFICATION COMPLETED USING TWO (2) STANDARD IDENTIFIERS: Name and Date of confirmed by patient verbally. FALL SCREENING: Has the patient had 2 falls in the last year or 1 fall with injury or currently using an Ambulatory Assistive Device (Walker, Cane, Wheelchair, Crutches, etc.)? No PATIENT GENDER DATA: Male PATIENT RELEVANT IMPLANT DATA REVIEWED: Yes ALLERGIES: Reviewed and unchanged CONTRAST ALLERGY: NO. EXAM: MRI - CONTRAST TYPE: GROUP II PERIPHERAL IV DATA: Ambulatory: A peripheral IV was started in the Left antecubital site with a Angio cath: 22 gauge. RADIOLOGY DEPARTMENT: MR; Exam(s) Completed: Head: Multiple Sclerosis SIGNATURE: RT Arie(R) PATIENT NAME: Otoniel Desai DATE: March 18, 2023 TIME: 9:41 AM documented in this encounter [facility] 03-17-2023 Note HNO ID: [id number] Author: Jammie Vicente RN Service: ? Author Type: Registered Nurse Type: Progress Notes Filed: 03/17/2023 9:50 AM Note Text: EKG complete and transmitted. [facility] 03-17-2023 History of Present illness Narrative EKG complete and transmitted. documented in this encounter [facility] 03-06-2023 Miscellaneous Notes Hiwot--12/31/22 Nov--03/28/23 Last refill--09/09/22 30 with 5 refills Last labs--12/16/22 documented in this encounter [facility] 02-24-2023 Miscellaneous Notes The following approved medication requests have been transmitted electronically. Requested Prescriptions Signed Prescriptions Disp Refills amphetamine-dextroamphetamine XR (ADDERALL XR) 30 mg 24 hr capsule 30 capsule 0 Sig: Take 1 capsule by mouth once daily for 30 days. Authorizing Provider: EDGAR LONGORIA dextroamphetamine-amphetamine (ADDERALL) 10 mg tablet 30 tablet 0 Sig: Take 1 tablet by mouth once daily for 30 days. In the afternoon as needed for concentration impairment Authorizing Provider: EDGAR LONGORIA HYDROcodone-acetaminophen (NORCO) 5-325 mg per tablet 60 tablet 0 Sig: Take 1 tablet by mouth twice daily as needed for pain for up to 30 days. Authorizing Provider: EDGAR LONGORIA APRN.CNP PDMP website checked and validated. All prescriptions have been APPROPRIATELY filled. No suspicious activity was identified. 02/24/2023 by Edgar Longoria CNP. Pt reports he called [facility] to make sure they had Adderall in stock. Last OV: 12/31/22 - Next scheduled appt: 03/28/23 Patient has been identified by name and date of : Yes Requested Prescriptions Pending Prescriptions Disp Refills amphetamine-dextroamphetamine XR (ADDERALL XR) 30 mg 24 hr capsule 30 capsule 0 Sig: Take 1 capsule by mouth once daily for 30 days. dextroamphetamine-amphetamine (ADDERALL) 10 mg tablet 30 tablet 0 Sig: Take 1 tablet by mouth once daily for 30 days. In the afternoon as needed for concentration impairment HYDROcodone-acetaminophen (NORCO) 5-325 mg per tablet 60 tablet 0 Sig: Take 1 tablet by mouth twice daily as needed for pain for up to 30 days. RX INSTRUCTIONS: Patient aware RX will be sent to pharmacy. No need to notify patient. Farzana Martin LPN documented in this encounter [facility] 02-20-2023 Note HNO ID: [id number] Author: Mona Bueno (Materials And Corrosion Engineer) Service: ? Author Type: ? Type: Progress Notes Filed: 02/27/2023 7:16 AM Note Text: [facility] Refill Assessment Medication(s): Sprycel No new clinical information to review since last [facility] refill encounter. Next OV scheduled 03/24. ALLERGIES Allergen Reactions Aspirin GI Upset Penicillins Hives Pollen Itching Topamax [Topiramate] Other: See Comments Severe migraines Patient's current medication list and adherence status to current therapy were reviewed by Specialty Pharmacy clinical pharmacist to identify any new drug interactions or non-compliance to therapy. Therapy continues to be appropriate for disease, patient response, and medical condition. Verification of therapeutic benefit and effectiveness with current therapy was completed. Adverse events, barriers in adherence, and side effects were assessed and addressed if applicable. Will proceed with refill with no changes in therapy - patient progressing towards achieving therapeutic goals based on medication-specific laboratory parameters, disease state markers and outcomes. Carlito Berg, PharmD, AAHIVP Clinical Pharmacist, Oncology [facility] P: ; F: Pool: P [facility] Pool #: [id number] Mechanical Developer Prover Assessment Patient confirmed: Yes Med/dose confirmed: Yes Missed doses: No Estimated days supply on hand: 7 Copay amount: 0 Payment confirmed: Yes Delivery method: FedEx Signature required: No Delivery address: [address] [place] [address] Delivery date: 02/28/23 [facility] Visit Assessment - Hematology/Oncology: Assessment to use: Refill Vaccination Assessment: Date of influenza vaccination reminder: 08/02/2022 Date of most recent vaccination assessment: 08/02/2022 Treatment Plan Information: Treatment Plan Information: 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 Treatment HX: Imatinib started 01/05/15 Current Therapy Sprycel 80mg ( SE BEARD @100mg dose, abated at 80mg dose) Prescriber brittany'd PPI per 07/18/21 OV note Avoid grapefruit Potential AE:Edema, BEARD, Rash, GI, Hempotologic, Infection, Neuromuscular and Musculoskeletal pain, Respiratory dypnea, pleural effusion DDI review: none new: Existing DDI Omeprazole and Sprycel, antacids 2 hrous before or after dasatanib perferred Estimated Start Date Info: Per Dr Otoniel Heaton Discretion Estimated Treatment Duration: Until progression or toxicity Refill Assessment: Lab monitoring inclusive of CBC, Chem-7, and other labs as pertinent for therapy: Yes Chemo cycle timing assessment: N/A Screening for infection: Yes Adverse reactions and mitigation: Yes Medication changes and interaction assessment: Yes Assessment of injection issues: N/A Additional Assessment: Assessment of continued need for prophylactic medications at regular intervals: Yes Radiology procedure timing to assess for disease progression: Yes Scheduled future appointments: Yes Mona Bueno (Materials And Corrosion Engineer) [facility] 01-31-2023 Miscellaneous Notes The following approved medication requests have been transmitted electronically. Requested Prescriptions Signed Prescriptions Disp Refills HYDROcodone-acetaminophen (NORCO) 5-325 mg per tablet 60 tablet 0 Sig: Take 1 tablet by mouth twice daily as needed for pain for up to 30 days. Authorizing Provider: EDGAR LONGORIA APRN.CNP PDMP website checked and validated. All prescriptions have been APPROPRIATELY filled. No suspicious activity was identified. 01/31/2023 by Edgar Longoria CNP. Patient has been identified by name and date of : Patient phones for refill(s): Requested Prescriptions Pending Prescriptions Disp Refills HYDROcodone-acetaminophen (NORCO) 5-325 mg per tablet 60 tablet 0 Sig: Take 1 tablet by mouth twice daily as needed for pain for up to 30 days. Date of last office visit in primary care: 12/31/2022, has appt 03/28/2023 Last 2 Encounter Wt Readings: Date: Wt: 01/03/2023 90.7 kg (200 lb) 12/31/2022 89.8 kg (198 lb) Previous labs/tests for medication: Not applicable Please advise. Thank you. Sally Garcia LPN documented in this encounter [facility] 01-27-2023 Note HNO ID: [id number] Author: Mery Liu Service: ? Author Type: ? Type: Progress Notes Filed: 01/28/2023 2:42 PM Note Text: [facility] Refill Assessment Medication(s): Sprycel No new clinical information to review since last SPP refill encounter. Next OV scheduled 03/24. ALLERGIES Allergen Reactions Aspirin GI Upset Penicillins Hives Pollen Itching Topamax [Topiramate] Other: See Comments Severe migraines Patient's current medication list and adherence status to current therapy were reviewed by Specialty Pharmacy clinical pharmacist to identify any new drug interactions or non-compliance to therapy. Therapy continues to be appropriate for disease, patient response, and medical condition. Verification of therapeutic benefit and effectiveness with current therapy was completed. Adverse events, barriers in adherence, and side effects were assessed and addressed if applicable. Will proceed with refill with no changes in therapy - patient progressing towards achieving therapeutic goals based on medication-specific laboratory parameters, disease state markers and outcomes. Carlito Berg, JoaquinD, AAHIVP Clinical Pharmacist, Oncology [facility] P: ; F: Pool: P [facility] Pool #: [id number] Mechanical Developer Prover Assessment Patient confirmed: Yes Med/dose confirmed: Yes Supplies needed: No supplies needed Missed doses: No Estimated days supply on hand: 5 Copay amount: 0 Payment confirmed: Yes Delivery method: FedEx Signature required: No Delivery address: [address] [place] [address] [place] [address] Delivery date: 01/30/23 Questions or concerns for the pharmacist?: No [facility] Visit Assessment - Hematology/Oncology: Ivent complete: No Assessment to use: Refill Vaccination Assessment: Date of influenza vaccination reminder: 08/02/2022 Date of most recent vaccination assessment: 08/02/2022 Treatment Plan Information: Treatment Plan Information: 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 Treatment HX: Imatinib started 01/05/15 Current Therapy Sprycel 80mg ( SE BEARD @100mg dose, abated at 80mg dose) Prescriber ok'd PPI per 07/18/21 OV note Avoid grapefruit Potential AE:Edema, BEARD, Rash, GI, Hempotologic, Infection, Neuromuscular and Musculoskeletal pain, Respiratory dypnea, pleural effusion DDI review: none new: Existing DDI Omeprazole and Sprycel, antacids 2 hrous before or after dasatanib perferred Estimated Start Date Info: Per Dr Otoniel Heaton Discretion Estimated Treatment Duration: Until progression or toxicity Refill Assessment: Lab monitoring inclusive of CBC, Chem-7, and other labs as pertinent for therapy: Yes Chemo cycle timing assessment: N/A Screening for infection: Yes Adverse reactions and mitigation: Yes Medication changes and interaction assessment: Yes Assessment of injection issues: N/A Additional Assessment: Assessment of continued need for prophylactic medications at regular intervals: Yes Radiology procedure timing to assess for disease progression: Yes Scheduled future appointments: Yes Mery Liu [facility] 01-27-2023 Note HNO ID: [id number] Author: Martha Pat RN Service: ? Author Type: Registered Nurse Type: Progress Notes Filed: 03/06/2023 9:09 PM Note Text: [facility] received rx sprycel for the patient per Dr. Heaton with prior authorization submitted to [employer] for review through [employer] online portal, and received following response: The patient currently has access to the requested medication and a Prior Authorization is not needed for the patient/medication. Discussed with oncology pharmacist team. Long Pat RN [facility] 01-10-2023 Miscellaneous Notes Patient phones requesting refills as follows: Requested Prescriptions Pending Prescriptions Disp Refills omeprazole (PRILOSEC) 40 mg capsule 30 capsule 4 Sig: Take 1 capsule by mouth once daily. Please review and advise. Radha June Ma documented in this encounter [facility] 01-07-2023 Note HNO ID: [id number] Author: Ondina Arboleda OD Service: ? Author Type: KNOT BUMPER Type: Progress Notes Filed: 01/07/2023 2:56 PM Note Text: 1. Meibomian gland dysfunction (MGD) of upper and lower lids of both eyes Continue warm compresses 1-2x daily Use Systane twice daily 2. Myopia, bilateral 3. Presbyopia Finalized spec rx- patient was currently over minused Follow-up as needed or in 6 months for complete Ondina Arboleda, OD January 07, 2023 2:54 PM [facility] 01-07-2023 History of Present illness Narrative 1. Meibomian gland dysfunction (MGD) of upper and lower lids of both eyes Continue warm compresses 1-2x daily Use Systane twice daily 2. Myopia, bilateral 3. Presbyopia Finalized spec rx- patient was currently over minused Follow-up as needed or in 6 months for complete Ondina Arboleda, OD January 07, 2023 2:54 PM documented in this encounter [facility] 01-07-2023 Miscellaneous Notes Pt notified of results and provider message. Farzana Martin LPN Please inform patient that all 4 moles removed showed each to be an atypical nevus with mild dysplasia. No further intervention needed. Noman Dean DO documented in this encounter [facility] 01-03-2023 History of Present illness Narrative PULM FUNCTION SMARTBLOCK: Provider: Harriett Hayes PA-C Assisting Tech: LEA Dalal Spirometry: 1 DLCO: 1 LV - Box: 1 documented in this encounter [facility] 01-03-2023 History of Present illness Narrative [facility] Refill Assessment Medication(s): Sprycel No new clinic notes to review since last SPP refill encounter. Labs from 12/16 reviewed. Next OV scheduled 03/17. ALLERGIES Allergen Reactions Aspirin GI Upset Penicillins Hives Pollen Itching Topamax [Topiramate] Other: See Comments Severe migraines Patient's current medication list and adherence status to current therapy were reviewed by Specialty Pharmacy clinical pharmacist to identify any new drug interactions or non-compliance to therapy. Therapy continues to be appropriate for disease, patient response, and medical condition. Verification of therapeutic benefit and effectiveness with current therapy was completed. Adverse events, barriers in adherence, and side effects were assessed and addressed if applicable. Will proceed with refill with no changes in therapy - patient progressing towards achieving therapeutic goals based on medication-specific laboratory parameters, disease state markers and outcomes. Joaquin MayersD Clinical Pharmacist, Oncology [facility] P: , F: Pool: P [facility] Pool #: [id number] Mechanical Developer Prover Assessment Patient confirmed: Yes Med/dose confirmed: Yes Missed doses: No Estimated days supply on hand: 5 Next cycle/dose due: 01/04/23 Copay amount: 0 Delivery method: FedEx Signature required: No Delivery address: [place] [address] Delivery date: 01/06/23 Questions or concerns for the pharmacist?: No [facility] Visit Assessment - Hematology/Oncology: Ivent complete: No Assessment to use: Refill Vaccination Assessment: Date of influenza vaccination reminder: 08/02/2022 Date of most recent vaccination assessment: 08/02/2022 Treatment Plan Information: Treatment Plan Information: 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 Treatment HX: Imatinib started 01/05/15 Current Therapy Sprycel 80mg ( SE BEARD @100mg dose, abated at 80mg dose) Prescriber ok'd PPI per 07/18/21 OV note Avoid grapefruit Potential AE:Edema, BEARD, Rash, GI, Hempotologic, Infection, Neuromuscular and Musculoskeletal pain, Respiratory dypnea, pleural effusion DDI review: none new: Existing DDI Omeprazole and Sprycel, antacids 2 hrous before or after dasatanib perferred Estimated Start Date Info: Per Dr Otoniel Heaton Discretion Estimated Treatment Duration: Until progression or toxicity Refill Assessment: Lab monitoring inclusive of CBC, Chem-7, and other labs as pertinent for therapy: Yes Chemo cycle timing assessment: N/A Screening for infection: Yes Adverse reactions and mitigation: Yes Medication changes and interaction assessment: Yes Assessment of injection issues: N/A Additional Assessment: Assessment of continued need for prophylactic medications at regular intervals: Yes Radiology procedure timing to assess for disease progression: Yes Scheduled future appointments: Yes Claudia Costa CPhT [facility] P: [phone] F: [phone] documented in this encounter [facility] 01-01-2023 Miscellaneous Notes Summary: appointment lvm for patient to call so we can get him scheduled for his mri and a follow up with archie documented in this encounter [facility] 12-31-2022 History of Present illness Narrative CC: Otoniel Desai is a 52 year old male who presents to the office for mole removal and follow up HPI: He is here for mole removal x 4 on his back that were noticed at his last OFFICE VISIT, hx of atypical nevi in the past with dysplasia, no history of melanoma, has been on medication for his Multiple sclerosis and has history of sun exposure. ADHD, taking adderall XR in the morning. Sometimes feels his symptoms aren't well enough controlled in the afternoon/evening. Wondering if dose adjustment can be made. Denies any SE from medication. Chronic b/l leg pain and MS, taking Larose as prescribed, tolerating well. Helps with ADLs and IADLs with dressing, bathing, gait, daily functioning. No new SE with medication PAST MEDICAL HISTORY Diagnosis Date ADHD (attention deficit hyperactivity disorder) Arrhythmia Arthritis Bipolar 1 disorder ([facility]) Dr. Easley [facility] Chronic obstructive pulmonary disease ([facility]) 04/19/2019 Chronic obstructive pulmonary disease ([facility]) CML (chronic myeloid leukemia) ([facility]) 02/13/2015 Dr. 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 Vasquez Neurologist Multiple sclerosis ([facility]) 10/2005 Dr. Mauricio Vasquez Neurologist Osteoarthritis of left knee 01/2022 Other symptoms involving abdomen and pelvis(789.9) Palpitations Schizophrenia ([facility]) Dr. Easley [facility] Snoring Substance abuse rule out 03/15/2015 Syncope Tobacco abuse PAST SURGICAL HISTORY Procedure Laterality Date BONE MARROW BIOPSY 12/2015 COLONOSCOPY FLX DX W/COLLJ SPEC WHEN PFRMD 07/22/2012 Colonoscopy repeat 3 years-requires MAC anesthesia COLONOSCOPY FLX DX W/COLLJ SPEC WHEN PFRMD 07/26/2015 Colonoscopy-pt requires MAC COLONOSCOPY SCRN NOT HIGH RISK 12/26/2020 COLONOSCOPY W/BIOPSY SINGLE/MULTIPLE 05/29/2006 repeat in 10 yrs EGD 12/26/2020 EGD 02/15/2021 ESOPHAGOGASTRODUODENOSCOPY TRANSORAL DIAGNOSTIC 02/03/2012 EGD ESOPHAGOGASTRODUODENOSCOPY TRANSORAL DIAGNOSTIC 02/07/2016 EGD ESOPHAGOGASTRODUODENOSCOPY TRANSORAL DIAGNOSTIC 05/01/2021 PAST SURGICAL HISTORY OF bladder growth- benign PAST SURGICAL HISTORY OF 2014 removal skin cancer right side neck TNOT ELBOW LATERAL/MEDIAL DEBRIDE OPEN Left 08/23/2022 Left elbow lateral epicondyle/tendon debridement TNOT ELBOW LATERAL/MEDIAL DEBRIDE OPEN Right 10/30/2022 Right elbow lateral epicondyle/tendon debridement TONSILLECTOMY HX Current Outpatient Medications Medication Sig oxybutynin ER (DITROPAN XL) 15 mg 24 hr Extended Rel Tab take 1 tablet by mouth once daily atenolol (TENORMIN) 25 mg tablet take 1 tablet by mouth once daily albuterol HFA (VENTOLIN HFA) 90 mcg/actuation inhaler INHALE 2 PUFFS INSTRUCTED EVERY FOUR HOURS NEEDED FOR WHEEZING / SHORTNESS OF BREATH dasatinib (SPRYCEL) 80 mg tablet Take 1 tablet (80mg) by mouth once daily. linaCLOtide (LINZESS) 72 mcg capsule Take first thing in the morning, 30 minutes before eating anything.Swallow whole; DO NOT crush or chew. diclofenac (VOLTAREN) 1 % topical gel apply 2 grams TO AFFTECTED AREA three times a day ANORO ELLIPTA 62.5-25 mcg/actuation inhaler inhale 1 puff by mouth and INTO THE LUNGS once daily omeprazole (PRILOSEC) 40 mg capsule take 1 capsule by mouth once daily sucralfate (CARAFATE) 1 gram tablet Take 1 tablet by mouth three times daily. gabapentin (NEURONTIN) 600 mg tablet TAKE 1 TABLET BY MOUTH THREE TIMES A DAY gemfibrozil (LOPID) 600 mg tablet Take 1 tablet by mouth twice daily. dicyclomine (BENTYL) 20 mg tablet Take 1 tablet by mouth three times daily. Cholecalciferol, Vitamin D3, (VITAMIN D-3) 50 mcg (2,000 unit) cap Take 1 capsule by mouth once daily. lactobacillus rhamnosus (CULTURELLE) 15 billion cell capsule Take 1 capsule by mouth once daily. lamoTRIgine (LAMICTAL) 200 mg tablet Take 1 tablet by mouth once daily. ARIPiprazole (ABILIFY) 5 mg tablet Take 1 tablet by mouth once daily. vilazodone (VIIBRYD) 40 mg tablet Take 40 mg by mouth once daily. dextroamphetamine-amphetamine (ADDERALL) 10 mg tablet Take 1 tablet by mouth once daily for 30 days. In the afternoon as needed for concentration impairment HYDROcodone-acetaminophen (NORCO) 5-325 mg per tablet Take 1 tablet by mouth twice daily as needed for pain for up to 30 days. amphetamine-dextroamphetamine XR (ADDERALL XR) 30 mg 24 hr capsule Take 1 capsule by mouth once daily for 30 days. Current Facility-Administered Medications Medication Dose Route Frequency perflutren lipid microspheres 1.3 mL in NaCl (PF) 0.9% 10 mL injection (DEFINITY) INTRAVENOUS DIRECTED PRN sodium chloride 0.9 % (flush) 10 mL (BD POSIFLUSH) 10 mL INTRAVENOUS DIRECTED PRN perflutren lipid microspheres 1.3 mL in NaCl (PF) 0.9% 10 mL injection (DEFINITY) INTRAVENOUS DIRECTED PRN sodium chloride 0.9 % (flush) 10 mL (BD POSIFLUSH) 10 mL INTRAVENOUS DIRECTED PRN ALLERGIES Allergen Reactions Aspirin GI Upset Penicillins Hives Pollen Itching Topamax [Topiramate] Other: See Comments Severe migraines Social History Tobacco Use Smoking status: Every Day Packs/day: 0.50 Years: 34.00 Pack years: 17.00 Types: Cigarettes Smokeless tobacco: Never Tobacco comments: Started age 18 Vaping Use Vaping Use: Never used Substance Use Topics Alcohol use: Not Currently Drug use: No ROS: See HPI PE: BP 120/80 Pulse 64 Temp (Src) 98 (Right Tympanic) Resp 16 Wt 198 lb (89.8kg) Gen: A&OX3, NAD, non-toxic appearing HEENT: PERRLA, EOMs intact b/l, nares without drainage, pharynx without erythema, exudate, lesions, or drainage. Uvula midline. Neck: No LAD, no thyromegaly, no meningismus. CV: RRR, no murmur Lungs: CTA b/l, no wheezing Skin: atypical nevus right upper back level of T3 to right of the spine at 4 x 3 mm and irregular border, atypical nevus right mid back about 1 inch from spine 2 x 2 mm size with irregular border. Atypical nevus left mid lateral back/flank level of T8 at 3 x 4 mm size, atypical nevus left lower lateral back at 3 x 2 mm size with irregular border INFORMED CONSENT Otoniel Ronquillo Giselle Medical Record: [id number] Date: 12/31/2022 Procedure:shave biopsy x 4 atypical nevi The risks, benefits and anticipated outcomes of the procedure, the risks and benefits of the alternatives to the procedure and the roles and tasks of the personnel to be involved were discussed with the patient and the patient consents to the procedure and agrees to proceed. I verify that I personally obtained Otoniel Desai's consent. Noman Dean DO [facility] [place] Risks, benefits, and alternatives discussed. Informed consent obtained. The area was cleaned and prepped in a sterile fashion. 4 specimen(s) sent for pathology. Written and Verbal wound care instructions given. ASSESSMENT/PLAN: 1. Atypical nevus of right upper back excluding scapular region - ICD9: 216.5, ICD10: D22.5 (primary diagnosis) Removed by shave biopsy, tolerated well, no complications, aware of wound care after procedure - SURGICAL PATHOLOGY 2. Attention deficit disorder, unspecified hyperactivity presence - ICD9: 314.00, ICD10: F98.8 - DEXTROAMPHETAMINE-AMPHETAMINE 10 MG TABLET 3. Bilateral leg pain - ICD9: 729.5, ICD10: M79.604, M79.605 rx refilled, stable - HYDROCODONE 5 MG-ACETAMINOPHEN 325 MG TABLET 4. Multiple sclerosis (HCC) - ICD9: 340, ICD10: G35 rx refilled, stable - HYDROCODONE 5 MG-ACETAMINOPHEN 325 MG TABLET 5. Attention deficit disorder, unspecified hyperactivity presence - ICD9: 314.00, ICD10: F98.8 rx refilled, stable - DEXTROAMPHETAMINE-AMPHETAMINE 10 MG TABLET - DEXTROAMPHETAMINE-AMPHETAMINE ER 30 MG 24HR CAPSULE,EXTEND RELEASE 6. Atypical nevus of back - ICD9: 216.5, ICD10: D22.5 Removed by shave biopsy, tolerated well, no complications, aware of wound care after procedure - SURGICAL PATHOLOGY 7. Atypical nevus of flank - ICD9: 216.5, ICD10: D22.5 Removed by shave biopsy, tolerated well, no complications, aware of wound care after procedure - SURGICAL PATHOLOGY 8. Atypical nevus of left lower back - ICD9: 216.5, ICD10: D22.5 Removed by shave biopsy, tolerated well, no complications, aware of wound care after procedure - SURGICAL PATHOLOGY Noman Dean DO PDMP website checked and validated. All prescriptions have been APPROPRIATELY filled. No suspicious activity was identified. 12/31/2022 by Noman Dean DO Return if no improvement. Follow up with Noman Dean DO. To ER if develops chest pain, shortness of breath Discussed risks, benefits, alternatives, and potential side effects of medications. Patient/Guardian expressed understanding and agreed with the plan. See patient instructions. Noman Dean DO [address] [place] [address] documented in this encounter [facility] 12-30-2022 Miscellaneous Notes Last office visit: 11/12/22 F/u scheduled: 12/31/22 Radha Crystal Ma documented in this encounter [facility] 12-25-2022 History of Present illness Narrative Patient: Otoniel Desai PCP: Noman Dean DO CC: copd HPI: Otoniel Desai 52 year old male current daily smoker, 30 pack years with PMH significant for ADHD, bipolar, CML (on dadatinib), hypercholesterolemia, IBS, MS, Schizophrenia, and COPD. Since the last Pulmonary Clinic visit 12/28/2021, the patient has not required ED care for exacerbation. There has been no hospital admission for exacerbation. Claims to be consistently compliant with prescribed maintenance Rx Anoro ellipta daily. Typically using rescue bronchodilator in the afternoon and evenings. Since the end of August 2022, patient reports multiple episodes of left-sided stabbing chest pain that radiates around his back. Associated lightheadedness and shortness of breath. Occasionally will have palpitations. Will last for a minute and resolve on its own. Patient has not had a cardiac workup or evaluation. Daily cough. Non-productive. No hemoptysis. Variable wheezing. No dyspnea at rest. Exertional dyspnea has not changed. No lower extremity edema. When eating he reports feeling like food or something is getting stuck in his throat. Last EGD 08/2022 normal. No specimens taken. Is on Prilosec. Has not had GI follow up since May 2022. PAST MEDICAL HISTORY Diagnosis Date ADHD (attention deficit hyperactivity disorder) Arrhythmia Arthritis Bipolar 1 disorder ([facility]) Dr. Easley [facility] Chronic obstructive pulmonary disease ([facility]) 04/19/2019 Chronic obstructive pulmonary disease ([facility]) CML (chronic myeloid leukemia) ([facility]) 02/13/2015 Dr. 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 Vasquez Neurologist Multiple sclerosis ([facility]) 10/2005 Dr. Mauricio Vasquez Neurologist Osteoarthritis of left knee 01/2022 Other symptoms involving abdomen and pelvis(789.9) Palpitations Schizophrenia (HCC) Dr. [place] Snoring Substance abuse rule out 03/15/2015 Syncope Tobacco abuse Allergies: Aspirin GI Upset Penicillins Hives Pollen Itching Topamax [Topiramate] Other: See Comments Comment:Severe migraines amphetamine-dextroamphetamine XR (ADDERALL XR) 30 mg 24 hr capsule^Take 1 capsule by mouth once daily for 30 days.^Disp: 30 capsule^Rfl: 0 HYDROcodone-acetaminophen (NORCO) 5-325 mg per tablet^Take 1 tablet by mouth twice daily as needed for pain for up to 30 days.^Disp: 60 tablet^Rfl: 0 dextroamphetamine-amphetamine (ADDERALL) 10 mg tablet^Take 1 tablet by mouth once daily for 30 days. In the afternoon as needed for concentration impairment^Disp: 30 tablet^Rfl: 0 atenolol (TENORMIN) 25 mg tablet^take 1 tablet by mouth once daily^Disp: 90 tablet^Rfl: 1 albuterol HFA (VENTOLIN HFA) 90 mcg/actuation inhaler^INHALE 2 PUFFS INSTRUCTED EVERY FOUR HOURS NEEDED FOR WHEEZING / SHORTNESS OF BREATH^Disp: 18 g^Rfl: 11 dasatinib (SPRYCEL) 80 mg tablet^Take 1 tablet (80mg) by mouth once daily.^Disp: 30 tablet^Rfl: 2 linaCLOtide (LINZESS) 72 mcg capsule^Take first thing in the morning, 30 minutes before eating anything.Swallow whole; DO NOT crush or chew.^Disp: 30 capsule^Rfl: 5 diclofenac (VOLTAREN) 1 % topical gel^apply 2 grams TO AFFTECTED AREA three times a day^Disp: 100 g^Rfl: 0 oxybutynin ER (DITROPAN XL) 15 mg 24 hr Extended Rel Tab^take 1 tablet by mouth once daily^Disp: 28 tablet^Rfl: 5 ANORO ELLIPTA 62.5-25 mcg/actuation inhaler^inhale 1 puff by mouth and INTO THE LUNGS once daily^Disp: 1 Each^Rfl: 5 omeprazole (PRILOSEC) 40 mg capsule^take 1 capsule by mouth once daily^Disp: 30 capsule^Rfl: 5 sucralfate (CARAFATE) 1 gram tablet^Take 1 tablet by mouth three times daily.^Disp: 90 tablet^Rfl: 0 gabapentin (NEURONTIN) 600 mg tablet^TAKE 1 TABLET BY MOUTH THREE TIMES A DAY^Disp: 90 tablet^Rfl: 5 gemfibrozil (LOPID) 600 mg tablet^Take 1 tablet by mouth twice daily.^Disp: 90 tablet^Rfl: 1 dicyclomine (BENTYL) 20 mg tablet^Take 1 tablet by mouth three times daily.^Disp: 120 tablet^Rfl: 2 Cholecalciferol, Vitamin D3, (VITAMIN D-3) 50 mcg (2,000 unit) cap^Take 1 capsule by mouth once daily.^Disp: 30 capsule^Rfl: 5 lactobacillus rhamnosus (CULTURELLE) 15 billion cell capsule^Take 1 capsule by mouth once daily.^Disp: 14 capsule^Rfl: 0 lamoTRIgine (LAMICTAL) 200 mg tablet^Take 1 tablet by mouth once daily.^Disp: ^Rfl: ARIPiprazole (ABILIFY) 5 mg tablet^Take 1 tablet by mouth once daily.^Disp: ^Rfl: 0 vilazodone (VIIBRYD) 40 mg tablet^Take 40 mg by mouth once daily.^Disp: ^Rfl: Social History Tobacco Use Smoking status: Every Day Packs/day: 0.50 Years: 34.00 Pack years: 17.00 Types: Cigarettes Smokeless tobacco: Never Tobacco comments: Started age 18 Vaping Use Vaping Use: Never used Substance Use Topics Alcohol use: Not Currently Drug use: No Family History Problem Relation Age of Onset Heart Mother Prostate Cancer Father at age 70 Lung Cancer Sister No Known Problems Brother Cancer Maternal Grandmother throat cancer Ischemic Heart Disease Maternal Grandmother other (brain hemorrhage) Maternal Grandmother Diabetes Maternal Grandfather Stroke Paternal Grandfather Heart Paternal Grandfather Cancer Maternal Aunt stomach Cancer Other Father's sister's son has CML Lung Cancer Paternal Uncle PAST SURGICAL HISTORY Procedure Laterality Date BONE MARROW BIOPSY 12/2015 COLONOSCOPY FLX DX W/COLLJ SPEC WHEN PFRMD 07/22/2012 Colonoscopy repeat 3 years-requires MAC anesthesia COLONOSCOPY FLX DX W/COLLJ SPEC WHEN PFRMD 07/26/2015 Colonoscopy-pt requires MAC COLONOSCOPY SCRN NOT HIGH RISK 12/26/2020 COLONOSCOPY W/BIOPSY SINGLE/MULTIPLE 05/29/2006 repeat in 10 yrs EGD 12/26/2020 EGD 02/15/2021 ESOPHAGOGASTRODUODENOSCOPY TRANSORAL DIAGNOSTIC 02/03/2012 EGD ESOPHAGOGASTRODUODENOSCOPY TRANSORAL DIAGNOSTIC 02/07/2016 EGD ESOPHAGOGASTRODUODENOSCOPY TRANSORAL DIAGNOSTIC 05/01/2021 PAST SURGICAL HISTORY OF bladder growth- benign PAST SURGICAL HISTORY OF 2015 removal skin cancer right side neck TNOT ELBOW LATERAL/MEDIAL DEBRIDE OPEN Left 08/23/2022 Left elbow lateral epicondyle/tendon debridement TNOT ELBOW LATERAL/MEDIAL DEBRIDE OPEN Right 10/30/2022 Right elbow lateral epicondyle/tendon debridement TONSILLECTOMY HX I reviewed the past medical history, family history, social history and surgical history with changes noted above and updated in EMR. IMMUNIZATIONS Prevnar - 09/13/2020 Pneumovax - 10/07/2018, 10/23/2009 Influenza - 08/13/2022 COVID-19 - 09/25/2021, 08/28/2021, 08/07/2021 ROS: General: Generally feels short of breath. Appetite fair. Eyes, Ears, nose, throat: No post nasal drip, rhinorrhea, purulent nasal discharge, epistaxis. No hoarseness. Vision stable. Cardiac: See HPI. Resp: See HPI. GI: See HPI. Musculoskeletal: Chronic pain. Neuro: No headache, focal weakness, tremor. Skin: No rash. Otherwise negative. PHYSICAL EXAMINATION: BP 100/60 Pulse 67 Resp 18 Wt 89.4 kg (197 lb) SpO2 97% BMI 25.29 kg/m Gen: No acute distress. Cooperative with examination. HEENT: Normocephalic. Sclera, conjunctiva clear. Oral hygeine and dentition good. No thrush. Resp: No stridor, accessory respiratory muscle use, supra-sternal or intercostal retractions. No wheezes, crackles. CV: Regular rythm. Heart tones normal. Radial pulses normal. Abd: Non distended. MSK: No kyphoscoliosis. Ext: Warm and well perfused. No clubbing, cyanosis, edema. Skin: No rash, ecchymoses. Neuro: Mental status normal. Affect normal. No tremor. DATA: PFT, 01/01/2022 IMPRESSION: Spirometry shows a reduced FEV1/FVC ratio; but individually normal FVC and FEV1 predicted values. This pattern indicates mild obstruction or a normal variant. The expiratory limb of the flow volume loop demonstrates concavity suggestive of expiratory airflow obstruction. Clinical correlation is advised. Electronically Signed On 01-03-2022 14:52:45 EST by Yuri Gomez CT chest, 11/18/2022 IMPRESSION: Trace bilateral pleural effusions, with associated mild interstitial edema. Trace pericardial effusion. Dilated main pulmonary artery, measuring approximately 3.1 cm, which can be seen with pulmonary arterial hypertension. Stable subcentimeter pulmonary nodules. Stable 9 mm left adrenal adenoma. Comparison: Chest radiograph dated 05/17/2022. Prior chest CT dated 01/26/2019. RESULT: Limitations: None. Lines, tubes, and devices: None. Lung parenchyma and pleura: There are trace bilateral pleural effusions. A bleb is seen within the medial aspect of the lingula, stable. Linear atelectasis is seen within the right middle lobe. There is mild dependent atelectasis. There is no pneumothorax. Secretions are seen within the trachea and right mainstem bronchus. Mild interstitial edema is seen within the right middle and bilateral lower lobes. There are stable subcentimeter indeterminate pulmonary nodules. For example, there is a stable, approximately 3-4 mm nodule within left apex (series 5, image #22). Thoracic inlet, heart, and mediastinum: There are no pathologically enlarged axillary, mediastinal, or hilar lymph nodes. The heart is normal in size. There is a stable trace pericardial effusion. The main pulmonary is dilated, measuring approximately 3.1 cm, which can be seen with pulmonary arterial hypertension. Bones and soft tissues: There is mild scoliosis and multilevel degenerative change seen within the visualized spine. There is no destructive bony lesion. Upper abdomen: Nonspecific wall thickening of the stomach likely relates to underdistention. There is a stable 9 mm left adrenal adenoma (series 5, image #207). Echocardiogram, 02/28/2022 CONCLUSIONS: - Exam indication: Chest Pain - The left ventricle is normal in size. Left ventricular systolic function is normal. EF = 61 5% (2D biplane) Normal left ventricular diastolic function. - The right ventricle is normal in size. Right ventricular systolic function is normal. - The left atrial cavity is mildly dilated. - There are no significant valvular abnormalities. - Exam was compared with the prior echocardiographic exam performed on 03/30/2019, no significant change. SSMENT/PLAN: 1. Stage 2 moderate COPD by GOLD classification (HCC) - ICD9: 496, ICD10: J44.9 (primary diagnosis) Continue maintenance therapy with Anoro and prn albuterol. Obtain updated PFTs. - SPIROMETRY BASELINE ONLY - LUNG DIFFUSION CAPACITY (DLCO) - LUNG VOLUMES 2. Chest pain, unspecified type - ICD9: 786.50, ICD10: R07.9 Will obtain and echo and EKG. - ECHO - PERFLUTREN LIPID MICROSPHERES 1.1 MG/ML INJECTION IN NS 10 ML - SODIUM CHLORIDE 0.9 % (FLUSH) INJECTION SYRINGE - ECG B/O W INTERP (MED OFFICE) 3. Dyspnea and respiratory abnormalities - ICD9: 786.09, ICD10: R06.00, R06.89 See #2. - ECHO - PERFLUTREN LIPID MICROSPHERES 1.1 MG/ML INJECTION IN NS 10 ML - SODIUM CHLORIDE 0.9 % (FLUSH) INJECTION SYRINGE - ECG B/O W INTERP (MED OFFICE) 4. Abnormal CT scan, lung - ICD9: 793.19, ICD10: R91.8 Reviewed imaging with patient and compared with CT from 2019. Obtain updated PFT. No restriction on prior lung function. Evidence of dilated pulmonary artery which may be associated with pulmonary HTN. Will obtain echo. - SPIROMETRY BASELINE ONLY - LUNG DIFFUSION CAPACITY (DLCO) - LUNG VOLUMES 5. Gastroesophageal reflux disease, unspecified whether esophagitis present - ICD9: 530.81, ICD10: K21.9 Continue Prilosec. Last EGD normal. Needs to re-establish with GI. Consult placed to [facility] for Dr. Parada. - CONSULT TO GASTROENTEROLOGY 6. Dysphagia, unspecified type - ICD9: 787.20, ICD10: R13.10 See #5. Has a sensation of food getting stuck in esophagus. - CONSULT TO GASTROENTEROLOGY Harriett Hayes PA-C documented in this encounter [facility] 12-20-2022 Miscellaneous Notes Unable to reach x3. Mychart sent. VM left for pt to call PCP office and ask for a nurse, for message below. Abeba Pettit RN Please call and clarify what symptoms he is having? Noman Dean DO Pt calling and states his had an H. Pylori test done. He states he feels he is having many of the same symptoms as her and asking if PCP would place order for this test? Please call pt with update. Thank you. documented in this encounter [facility] 12-18-2022 Miscellaneous Notes PDMP website checked and validated. All prescriptions have been APPROPRIATELY filled. No suspicious activity was identified. 12/18/2022 by Maria Dolores Randall APRN.CNP The following approved medication requests have been transmitted electronically. Requested Prescriptions Signed Prescriptions Disp Refills amphetamine-dextroamphetamine XR (ADDERALL XR) 30 mg 24 hr capsule 30 capsule 0 Sig: Take 1 capsule by mouth once daily for 30 days. Authorizing Provider: MARIA DOLORES RANDALL APRN.CNP Pt reports he has been out of this medication, and [facility] [place] [facility]. He states they told him that [facility] [place] [facility]. Patient has been identified by name and date of : Yes, Provider Dr Dean Date 12/17/22 Time 1301. Patient phones for refill(s): Requested Prescriptions Pending Prescriptions Disp Refills amphetamine-dextroamphetamine XR (ADDERALL XR) 30 mg 24 hr capsule 30 capsule 0 Sig: Take 1 capsule by mouth once daily for 30 days. Date of last office visit in primary care: 11/12/22 Future visit: 12/31/22 Last 2 Encounter Wt Readings: Date: Wt: 12/17/2022 89.4 kg (197 lb) 11/12/2022 89.4 kg (197 lb) Previous labs/tests for medication: Blood Pressure: BUN (mg/dL) Date Value 12/16/2022 15 01/16/2022 23 Sodium (mmol/L) Date Value 12/16/2022 138 01/16/2022 140 Last 1 Encounter BP Readings: Date: BP: 12/17/2022 124/81 Liver Function: ALT (U/L) Date Value 12/16/2022 16 01/16/2022 14 AST (U/L) Date Value 12/16/2022 14 01/16/2022 21 Please advise. Thank you. Grace Greene RN documented in this encounter [facility] 12-12-2022 Miscellaneous Notes The following approved medication requests have been transmitted electronically. Requested Prescriptions Signed Prescriptions Disp Refills amphetamine-dextroamphetamine XR (ADDERALL XR) 30 mg 24 hr capsule 30 capsule 0 Sig: Take 1 capsule by mouth once daily for 30 days. Authorizing Provider: EDGAR LONGORIA APRN.CNP PDMP website checked and validated. All prescriptions have been APPROPRIATELY filled. No suspicious activity was identified. 12/12/2022 by Edgar Longoria CNP. Patient has been identified by name and date of : Yes, Provider Dr. Daen Date 12-12-22 Time 1:44 pm Patient phones for refill(s): Requested Prescriptions Pending Prescriptions Disp Refills amphetamine-dextroamphetamine XR (ADDERALL XR) 30 mg 24 hr capsule 30 capsule 0 Sig: Take 1 capsule by mouth once daily for 30 days. Date of last office visit with pcp: 11-12-22. Next appt: 12-31-22 Pended for [facility] per patient request. Last 2 Encounter Wt Readings: Date: Wt: 11/12/2022 89.4 kg (197 lb) 10/23/2022 89.4 kg (197 lb) Previous labs/tests for medication: Blood Pressure: BUN (mg/dL) Date Value 09/02/2022 20 01/16/2022 23 Sodium (mmol/L) Date Value 09/02/2022 137 01/16/2022 140 Last 1 Encounter BP Readings: Date: BP: 11/12/2022 100/60 Liver Function: ALT (U/L) Date Value 09/02/2022 11 01/16/2022 14 AST (U/L) Date Value 09/02/2022 17 01/16/2022 21 Please advise. Thank you. Berny Naidu RN documented in this encounter [facility] 12-09-2022 History of Present illness Narrative Jersey Cole MD Department of Orthopaedics [facility] [address] [place] [address] Dept: [phone] Dept December 09, 2022 CHIEF COMPLAINT: Established Patient and Post Op of the Right Elbow. HPI Patient here today for 5 weeks 5 days post op right elbow epicondyle /tendon debridement. He has a small amount of intermittent pain. ASSESSMENT: M77.11 Right lateral epicondylitis (primary encounter diagnosis) SUMMARY/PLAN: 6 weeks out, he's doing well. Can start to lift more. Exam: Healed incision, looks excellent. Supporting Information Below: Medications: Current Outpatient Medications Medication Sig HYDROcodone-acetaminophen (NORCO) 5-325 mg per tablet Take 1 tablet by mouth twice daily as needed for pain for up to 30 days. dextroamphetamine-amphetamine (ADDERALL) 10 mg tablet Take 1 tablet by mouth once daily for 30 days. In the afternoon as needed for concentration impairment atenolol (TENORMIN) 25 mg tablet take 1 tablet by mouth once daily albuterol HFA (VENTOLIN HFA) 90 mcg/actuation inhaler INHALE 2 PUFFS INSTRUCTED EVERY FOUR HOURS NEEDED FOR WHEEZING / SHORTNESS OF BREATH amphetamine-dextroamphetamine XR (ADDERALL XR) 30 mg 24 hr capsule Take 1 capsule by mouth once daily for 30 days. dasatinib (SPRYCEL) 80 mg tablet Take 1 tablet (80mg) by mouth once daily. linaCLOtide (LINZESS) 72 mcg capsule Take first thing in the morning, 30 minutes before eating anything.Swallow whole; DO NOT crush or chew. diclofenac (VOLTAREN) 1 % topical gel apply 2 grams TO AFFTECTED AREA three times a day oxybutynin ER (DITROPAN XL) 15 mg 24 hr Extended Rel Tab take 1 tablet by mouth once daily ANORO ELLIPTA 62.5-25 mcg/actuation inhaler inhale 1 puff by mouth and INTO THE LUNGS once daily omeprazole (PRILOSEC) 40 mg capsule take 1 capsule by mouth once daily sucralfate (CARAFATE) 1 gram tablet Take 1 tablet by mouth three times daily. gabapentin (NEURONTIN) 600 mg tablet TAKE 1 TABLET BY MOUTH THREE TIMES A DAY gemfibrozil (LOPID) 600 mg tablet Take 1 tablet by mouth twice daily. dicyclomine (BENTYL) 20 mg tablet Take 1 tablet by mouth three times daily. Cholecalciferol, Vitamin D3, (VITAMIN D-3) 50 mcg (2,000 unit) cap Take 1 capsule by mouth once daily. lactobacillus rhamnosus (CULTURELLE) 15 billion cell capsule Take 1 capsule by mouth once daily. lamoTRIgine (LAMICTAL) 200 mg tablet Take 1 tablet by mouth once daily. ARIPiprazole (ABILIFY) 5 mg tablet Take 1 tablet by mouth once daily. vilazodone (VIIBRYD) 40 mg tablet Take 40 mg by mouth once daily. Current Facility-Administered Medications Medication Dose Route Frequency perflutren lipid microspheres 1.3 mL in NaCl (PF) 0.9% 10 mL injection (DEFINITY) INTRAVENOUS DIRECTED PRN sodium chloride 0.9 % (flush) 10 mL (BD POSIFLUSH) 10 mL INTRAVENOUS DIRECTED PRN Allergies: Aspirin, Penicillins, Pollen, and Topamax [Topiramate] Jersey Cole MD documented in this encounter [facility] 12-06-2022 Miscellaneous Notes Spoke with pt gave information provided. Pt voices understanding. The trick rodeo rider will be able to review the CT chest with patient Noman Dean DO Patient calling and asking if provider can send in order for CT Chest with contrast to see if there is any difference or changes from the one that was done on 11/18? Patient has an appointment with specialist on 12/17/2022. Please review and advise, Huyen Evans RN documented in this encounter [facility] 12-03-2022 Miscellaneous Notes Patient phones requesting refills as follows: Requested Prescriptions Pending Prescriptions Disp Refills atenolol (TENORMIN) 25 mg tablet [Pharmacy Med Name: ATENOLOL 25 MG TABLET] 90 tablet 1 Sig: take 1 tablet by mouth once daily [facility]-11/12/22 Labs-09/02/22 NOV-12/31/22 med filled 06/05/22 Please review and advise. Lucinda Fournier LPN documented in this encounter [facility] 11-20-2022 Miscellaneous Notes Contacted patient and scheduled in [place] on 12/17. Per the order that was placed, [place] is the closest location to see for this. Alal Venegas Pss Pt. informed. Please schedule with Pulm. Please inform patient that his CT chest showed: IMPRESSION: Trace bilateral pleural effusions, with associated mild interstitial edema. Stable subcentimeter pulmonary nodules. Stable 9 mm left adrenal adenoma. I would like him to follow up with Engagement Engineer regarding the mild interstitial edema in his lungs. Hasn't been recently seen by this specialist Noman Dean DO documented in this encounter [facility] 11-18-2022 History of Present illness Narrative Radiology Service Progress Note PATIENT NAME: Otoniel Desai DATE OF SERVICE: November 18, 2022 TIME: 3:57 PM PATIENT IDENTITY VERIFICATION COMPLETED USING TWO (2) IDENTIFIERS: Name and Date of confirmed by patient verbally. FALL SCREENING: Has the patient had 2 falls in the last year or 1 fall with injury or currently using an Ambulatory Assistive Device (Walker, Cane, Wheelchair, Crutches, etc.)? No PATIENT GENDER DATA: Male PATIENT RELEVANT IMPLANT DATA REVIEWED: Yes RADIOLOGY DEPARTMENT: CT; Exam(s) Completed: Chest PERIPHERAL IV DATA: Not applicable SIGNED BY: RT Mike(R) November 18, 2022 3:57 PM documented in this encounter [facility] 11-18-2022 Miscellaneous Notes [place]--11/12/22 Nov--08/22 Last refill--04/12/22 18g 11 refills Last labs--09/02/22 documented in this encounter [facility] 11-12-2022 History of Present illness Narrative CC: Otoniel Desai is a 52 year old male who presents to the office for follow up HPI: Seen in office on 01/22/22 About 2-3 weeks ago, he states that he states that he tripped and caught himself with his left knee against an edge of a steel object on front of the knee and after that has had some discomfort. Worse with movement/walking, feels that he is feeling a grinding under my knee cap , symptoms come and go. No locking or giving out. Feels like there is some swelling present there B/l elbow pain, started as left elbow pain about 2-3 months ago, now right elbow is bothering him. Has been using a left elbow tennis band with some benefit. No known injuries or overuse activities. Hasn't take any medications for this Stomach upset symptoms and GERD, long standing, seems to be worse over the last year. Has had gastric emptying study which is normal. has had EGD in the last 6-9 months. Has increased prilosec to 40 mg a day, has seen Gastroenterogy and saw Ny Rodriguez and Dr. Lee, restarted Prilosec on 2020 due to these symptoms. Hasn't started the carafate medication, which is the newest recommendations by Ny. No obvious new blood in stool or vomiting. ADHD, stable, taking adderall. Chronic b/l leg pain and MS, taking Larose as prescribed, tolerating well. Helps with ADLs and IADLs with dressing, bathing, gait, daily functioning. No new SE with medication at last OFFICE VISIT on 02/13/22 Left knee pain, still present after his trip/fall against left knee about 6 weeks ago. Did have xray completed after last OFFICE VISIT which showed OA changes in knee and some swelling over patella, no fracture. Has been trying to rest and ice knee, still bothering him to walk due to joint pain. Asking for option to try. B/l elbow pain left >right, has been using tennis elbow brace/band on forearm with some relief. NSAID and icing, still causing discomfort with arm/hand use. Right leg sore spot and discomfort, mild local swelling, no known injury or recent travel, no drainage or fevers or chills. Not using anything on the area. Chest pressure, off and on, sometimes with rest and sometimes with exertion, no symptoms today, present x weeks/months, no dyspnea or dizziness/Lh or palpitations that are new. Occasional right neck pain, no injuries or fevers or chills. At follow up on 05/13/22 ADHD, taking adderall XR in the morning. Sometimes feels his symptoms aren't well enough controlled in the afternoon/evening. Wondering if dose adjustment can be made. Denies any SE from medication. Chronic b/l leg pain and MS, taking Larose as prescribed, tolerating well. Helps with ADLs and IADLs with dressing, bathing, gait, daily functioning. No new SE with medication Fullness and discomfort feeling in his neck, right sided and sharp shooting pain, lasting typically minutes, intermittent, states has been occurring x months, no fevers or chills. 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 Has had a neck MRI in the last 6-12 months which showed some DDD and DJD cervical spine, has been off his MS medications per Neurologist guidance since July 2021. Continues to have weakness and tingling and pain into arms, difficulty with commissary assistant strength of hands etc. No recent injuries or whiplash etc. Continued abdominal discomfort, GI upset, GERD symptoms, has been seeing Gastro LALO Alejandra and had an Upper GI and Small bowel series that was normal. Last EGD 01/2021. No known blood in stool. Is taking the prilosec consistently and trying to follow low acid diet and symptoms are persisting. Spontaneous bruising, no associated injury, increased the last few months. Taking vitamin D supplements. Arms and legs At last appt 3 months ago Aug 13, 2022 GERD symptoms with worsening GI upset, has EGD scheduled to be done today with sedation. Has been seeing Gastro ABBI Alejandra ADHD, taking adderall XR in the morning. Sometimes feels his symptoms aren't well enough controlled in the afternoon/evening. Wondering if dose adjustment can be made. Denies any SE from medication. Chronic b/l leg pain and MS, taking Larose as prescribed, tolerating well. Helps with ADLs and IADLs with dressing, bathing, gait, daily functioning. No new SE with medication Recently had a vision evaluation/burn out scarfing operator appt with Ondina Arboleda OD, for blurring vision. Has myopia and presbyopia. Has bifocal glasses. CML, taking Sprycel Dasatinib per Dr. Heaton Oncologist MS, hasn't been on immune suppressant medication for 1 year. Is seeing Neurologist at [facility] now. Currently ADHD, taking adderall XR in the morning. Sometimes feels his symptoms aren't well enough controlled in the afternoon/evening. Wondering if dose adjustment can be made. Denies any SE from medication. Chronic b/l leg pain and MS, taking Larose as prescribed, tolerating well. Helps with ADLs and IADLs with dressing, bathing, gait, daily functioning. No new SE with medication Recently had a vision evaluation/burn out scarfing operator appt with Ondinanikolai Arboleda OD, for blurring vision. Has myopia and presbyopia. Has bifocal glasses. CML, taking Sprycel Dasatinib per Dr. Heaton Oncologist MS, hasn't been on immune suppressant medication for 1 year. Is seeing Neurologist at [facility] now. Tobacco use, hasn't had a recent CT chest, has chronic intermittent cough, wheezing and dyspnea Recently had normal stress testing cardiac as well as ECHO Had recent right arm ulnar tunnel release surgery with Dr. Cole- has follow up scheduled. PAST MEDICAL HISTORY Diagnosis Date ADHD (attention deficit hyperactivity disorder) Arrhythmia Arthritis Bipolar 1 disorder ([facility]) Dr. Easley [facility] Chronic obstructive pulmonary disease ([facility]) 04/19/2019 Chronic obstructive pulmonary disease ([facility]) CML (chronic myeloid leukemia) ([facility]) 02/13/2015 Dr. 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 Vasquez Neurologist Multiple sclerosis ([facility]) 10/2005 Dr. Mauricio Vasquez Neurologist Osteoarthritis of left knee 01/2022 Other symptoms involving abdomen and pelvis(789.9) Palpitations Schizophrenia ([facility]) Dr. Easley [facility] Snoring Substance abuse rule out 03/15/2015 Syncope Tobacco abuse PAST SURGICAL HISTORY Procedure Laterality Date BONE MARROW BIOPSY 12/2015 COLONOSCOPY FLX DX W/COLLJ SPEC WHEN PFRMD 07/22/2012 Colonoscopy repeat 3 years-requires MAC anesthesia COLONOSCOPY FLX DX W/COLLJ SPEC WHEN PFRMD 07/26/2015 Colonoscopy-pt requires MAC COLONOSCOPY SCRN NOT HIGH RISK 12/26/2020 COLONOSCOPY W/BIOPSY SINGLE/MULTIPLE 05/29/2006 repeat in 10 yrs EGD 12/26/2020 EGD 02/15/2021 ESOPHAGOGASTRODUODENOSCOPY TRANSORAL DIAGNOSTIC 02/03/2012 EGD ESOPHAGOGASTRODUODENOSCOPY TRANSORAL DIAGNOSTIC 02/07/2016 EGD ESOPHAGOGASTRODUODENOSCOPY TRANSORAL DIAGNOSTIC 05/01/2021 PAST SURGICAL HISTORY OF bladder growth- benign PAST SURGICAL HISTORY OF 2015 removal skin cancer right side neck TNOT ELBOW LATERAL/MEDIAL DEBRIDE OPEN Left 08/23/2022 Left elbow lateral epicondyle/tendon debridement TNOT ELBOW LATERAL/MEDIAL DEBRIDE OPEN Right 10/30/2022 Right elbow lateral epicondyle/tendon debridement TONSILLECTOMY HX Current Outpatient Medications Medication Sig amphetamine-dextroamphetamine XR (ADDERALL XR) 30 mg 24 hr capsule Take 1 capsule by mouth once daily for 30 days. dextroamphetamine-amphetamine (ADDERALL) 10 mg tablet Take 1 tablet by mouth once daily for 30 days. In the afternoon as needed for concentration impairment HYDROcodone-acetaminophen (NORCO) 5-325 mg per tablet Take 1 tablet by mouth twice daily as needed for pain for up to 30 days. dasatinib (SPRYCEL) 80 mg tablet Take 1 tablet (80mg) by mouth once daily. linaCLOtide (LINZESS) 72 mcg capsule Take first thing in the morning, 30 minutes before eating anything.Swallow whole; DO NOT crush or chew. diclofenac (VOLTAREN) 1 % topical gel apply 2 grams TO AFFTECTED AREA three times a day oxybutynin ER (DITROPAN XL) 15 mg 24 hr Extended Rel Tab take 1 tablet by mouth once daily ANORO ELLIPTA 62.5-25 mcg/actuation inhaler inhale 1 puff by mouth and INTO THE LUNGS once daily omeprazole (PRILOSEC) 40 mg capsule take 1 capsule by mouth once daily atenolol (TENORMIN) 25 mg tablet take 1 tablet by mouth once daily albuterol HFA (VENTOLIN HFA) 90 mcg/actuation inhaler INHALE 2 PUFFS INSTRUCTED EVERY FOUR HOURS NEEDED FOR WHEEZING / SHORTNESS OF BREATH sucralfate (CARAFATE) 1 gram tablet Take 1 tablet by mouth three times daily. gabapentin (NEURONTIN) 600 mg tablet TAKE 1 TABLET BY MOUTH THREE TIMES A DAY gemfibrozil (LOPID) 600 mg tablet Take 1 tablet by mouth twice daily. dicyclomine (BENTYL) 20 mg tablet Take 1 tablet by mouth three times daily. Cholecalciferol, Vitamin D3, (VITAMIN D-3) 50 mcg (2,000 unit) cap Take 1 capsule by mouth once daily. lactobacillus rhamnosus (CULTURELLE) 15 billion cell capsule Take 1 capsule by mouth once daily. lamoTRIgine (LAMICTAL) 200 mg tablet Take 1 tablet by mouth once daily. ARIPiprazole (ABILIFY) 5 mg tablet Take 1 tablet by mouth once daily. vilazodone (VIIBRYD) 40 mg tablet Take 40 mg by mouth once daily. Current Facility-Administered Medications Medication Dose Route Frequency perflutren lipid microspheres 1.3 mL in NaCl (PF) 0.9% 10 mL injection (DEFINITY) INTRAVENOUS DIRECTED PRN sodium chloride 0.9 % (flush) 10 mL (BD POSIFLUSH) 10 mL INTRAVENOUS DIRECTED PRN ALLERGIES Allergen Reactions Aspirin GI Upset Penicillins Hives Pollen Itching Topamax [Topiramate] Other: See Comments Severe migraines Social History Tobacco Use Smoking status: Every Day Packs/day: 1.00 Years: 30.00 Pack years: 30.00 Types: Cigarettes Smokeless tobacco: Never Tobacco comments: Pt has cut back to 5 cigarettes daily. Vaping Use Vaping Use: Never used Substance Use Topics Alcohol use: Not Currently Drug use: No ROS: See HPI PE: BP 100/60 Pulse 80 Temp (Src) 98.6 (Temporal) Resp 16 Wt 197 lb (89.4kg) Gen: A&OX3, NAD, non-toxic appearing HEENT: PERRLA, EOMs intact b/l, nares without drainage, pharynx without erythema, exudate, lesions, or drainage. Uvula midline. Neck: mild fullness in anterior inferior neck and supraclavicular area with associated discomfort, no obvious thyromegaly, no meningismus. ? Right carotid bruit present, no pain with swallowing CV: RRR, no murmur Lungs: CTA b/l, no wheezing Skin: mulitple atypical nevi on upper and mid and lower back Gait is slowed Weakness of hand commissary assistant b/l, weakness of biceps strength Wearing glasses Reduced ROM cervical spine PDMP website checked and validated. All prescriptions have been APPROPRIATELY filled. No suspicious activity was identified. 11/12/2022 by Noman Dean DO ASSESSMENT/PLAN: 1. Attention deficit disorder, unspecified hyperactivity presence - ICD9: 314.00, ICD10: F98.8 (primary diagnosis) rx refilled, chronic, stable, taking as prescribed - DEXTROAMPHETAMINE-AMPHETAMINE ER 30 MG 24HR CAPSULE,EXTEND RELEASE 2. Wheezing - ICD9: 786.07, ICD10: R06.2 Need for lung cancer screening and follow up with COPD, he is still smoking, he is not interested in quitting at this time. - CT CHEST WO IVCON 3. Tobacco use - ICD9: 305.1, ICD10: Z72.0 - Cessation encouraged. - Physiologic and physical aspects of tobacco addiction as well as strategies for quitting were discussed. - Counseling was given focusing on the harmful effects of this addiction especially given the patient's medical condition(s) which will be worsened because of the chemicals in tobacco. - CT CHEST WO IVCON 4. Multiple sclerosis (HCC) - ICD9: 340, ICD10: G35 Taking medications as prescribed to help with chronic pain- helping with ADLs and IADLs- follow up with Neurologist as well. 5. Bilateral leg pain - ICD9: 729.5, ICD10: M79.604, M79.605 Taking medications as prescribed to help with chronic pain- helping with ADLs and IADLs- follow up with Neurologist as well. 6. Stage 2 moderate COPD by GOLD classification ([facility]) - ICD9: 496, ICD10: J44.9 Need for lung cancer screening and follow up with COPD, he is still smoking, he is not interested in quitting at this time. 7. Gastroesophageal reflux disease with esophagitis without hemorrhage - ICD9: 530.81, 530.10, ICD10: K21.00 - Discussed lifestyle modifications including losing weight, limiting caffeine, no meals three hours before sleep, and head of bed elevation 8. CML (chronic myeloid leukemia) ([facility]) - ICD9: 205.10, ICD10: C92.10 - f/u with Oncologist 9. PAD (peripheral artery disease) ([facility]) - ICD9: 443.9, ICD10: I73.9 Stable, need for quitting smoking but he isn't willing He is going to make an appt in office for skin check and possible mole removal on back with atypical appearing nevi Noman Dean DO Return if no improvement. Follow up with Noman Dean DO. To ER if develops chest pain, shortness of breath Discussed risks, benefits, alternatives, and potential side effects of medications. Patient/Guardian expressed understanding and agreed with the plan. See patient instructions. Noman Dean DO [address] [place] [address] documented in this encounter [facility] 10-22-2022 History of Present illness Narrative No show for visit. Michelle Zambrano APRN.LALO documented in this encounter [facility] 10-16-2022 Miscellaneous Notes I called and spoke with patient. He was transferred to [facility] to get scheduled. Julia with Pre admit testing called to update on patient, no showed visit and has not returned phone calls left on patient voice mail. RUFINO Patient was scheduled for in person [facility] appt at 3:00 today. Patient did not check in for appt, called patient at 3:01 to see if they were planning on coming. Patient did not answer. Routed to [facility] schedulers. documented in this encounter [facility] 10-10-2022 Miscellaneous Notes The following approved medication requests have been transmitted electronically. Requested Prescriptions Signed Prescriptions Disp Refills amphetamine-dextroamphetamine XR (ADDERALL XR) 30 mg 24 hr capsule 30 capsule 0 Sig: Take 1 capsule by mouth once daily for 30 days. Authorizing Provider: EDGAR LONGORIA dextroamphetamine-amphetamine (ADDERALL) 10 mg tablet 30 tablet 0 Sig: Take 1 tablet by mouth once daily for 30 days. In the afternoon as needed for concentration impairment Authorizing Provider: EDGAR LONGORIA HYDROcodone-acetaminophen (NORCO) 5-325 mg per tablet 60 tablet 0 Sig: Take 1 tablet by mouth twice daily as needed for pain for up to 30 days. Authorizing Provider: EDGAR LONGORIA APRN.CNP [facility] website checked and validated. All prescriptions have been APPROPRIATELY filled. No suspicious activity was identified. 10/10/2022 by Edgar Longoria CNP. Last Office Visit: 08/13/2022 Future Office Visit: 11/12/2022 Requested Prescriptions Pending Prescriptions Disp Refills amphetamine-dextroamphetamine XR (ADDERALL XR) 30 mg 24 hr capsule 30 capsule 0 Sig: Take 1 capsule by mouth once daily for 30 days. dextroamphetamine-amphetamine (ADDERALL) 10 mg tablet 30 tablet 0 Sig: Take 1 tablet by mouth once daily for 30 days. In the afternoon as needed for concentration impairment HYDROcodone-acetaminophen (NORCO) 5-325 mg per tablet 60 tablet 0 Sig: Take 1 tablet by mouth twice daily as needed for pain for up to 30 days. Date of Last Labs: 09/02/2022 documented in this encounter [facility] 10-04-2022 Miscellaneous Notes Surgery has been scheduled as requested. Surgical request completed. Post op appointments have been scheduled and mailed to patient. Patient to be scheduled for right elbow extensor tendon debridement at [facility] on 10/30/2022. documented in this encounter [facility] 10-03-2022 History of Present illness Narrative Jersey Cole MD Department of Orthopaedics Orthopaedics [address] [place] [address] [place] [address] Dept: [phone] Dept October 03, 2022 CHIEF COMPLAINT: Established Patient and Post Op of the Left Elbow. HPI Patient is here today for 6 week postop left elbow lateral tendon debridement. Patient states he is still in a lot of pain; patient states pain in constant and worse with movement of his arm. Patient taking pain medication, using voltaren gel, and icing. ASSESSMENT: M65.4 De Quervain's tenosynovitis (primary encounter diagnosis) M25.522 Left elbow pain M25.521, G89.29 Chronic elbow pain, right SUMMARY/PLAN: He seems to be doing quite well from the left side though he does state it is a bit slow. However he has had enough improvement that he would like to schedule the right elbow. We reviewed again the risks, benefits, alternatives and potential complications Exam: Left elbow is healing nicely. Very minimal and appropriate amount of postoperative swelling. Right elbow persists with tenderness directly over the epicondyle and pain on resisted elbow, wrist and middle finger extension. Supporting Information Below: Medications: Current Outpatient Medications Medication Sig dasatinib (SPRYCEL) 80 mg tablet Take 1 tablet (80mg) by mouth once daily. linaCLOtide (LINZESS) 72 mcg capsule Take first thing in the morning, 30 minutes before eating anything.Swallow whole; DO NOT crush or chew. HYDROcodone-acetaminophen (NORCO) 5-325 mg per tablet Take 1 tablet by mouth twice daily as needed for pain for up to 30 days. Do not start before September 06, 2022. amphetamine-dextroamphetamine XR (ADDERALL XR) 30 mg 24 hr capsule Take 1 capsule by mouth once daily for 30 days. Do not start before September 06, 2022. dextroamphetamine-amphetamine (ADDERALL) 10 mg tablet Take 1 tablet by mouth once daily for 30 days. In the afternoon as needed for concentration impairment Do not start before September 06, 2022. diclofenac (VOLTAREN) 1 % topical gel apply 2 grams TO AFFTECTED AREA three times a day oxybutynin ER (DITROPAN XL) 15 mg 24 hr Extended Rel Tab take 1 tablet by mouth once daily ANORO ELLIPTA 62.5-25 mcg/actuation inhaler inhale 1 puff by mouth and INTO THE LUNGS once daily omeprazole (PRILOSEC) 40 mg capsule take 1 capsule by mouth once daily atenolol (TENORMIN) 25 mg tablet take 1 tablet by mouth once daily albuterol HFA (VENTOLIN HFA) 90 mcg/actuation inhaler INHALE 2 PUFFS INSTRUCTED EVERY FOUR HOURS NEEDED FOR WHEEZING / SHORTNESS OF BREATH sucralfate (CARAFATE) 1 gram tablet Take 1 tablet by mouth three times daily. gabapentin (NEURONTIN) 600 mg tablet TAKE 1 TABLET BY MOUTH THREE TIMES A DAY gemfibrozil (LOPID) 600 mg tablet Take 1 tablet by mouth twice daily. dicyclomine (BENTYL) 20 mg tablet Take 1 tablet by mouth three times daily. Cholecalciferol, Vitamin D3, (VITAMIN D-3) 50 mcg (2,000 unit) cap Take 1 capsule by mouth once daily. lactobacillus rhamnosus (CULTURELLE) 15 billion cell capsule Take 1 capsule by mouth once daily. lamoTRIgine (LAMICTAL) 200 mg tablet Take 1 tablet by mouth once daily. ARIPiprazole (ABILIFY) 5 mg tablet Take 1 tablet by mouth once daily. vilazodone (VIIBRYD) 40 mg tablet Take 40 mg by mouth once daily. Current Facility-Administered Medications Medication Dose Route Frequency perflutren lipid microspheres 1.3 mL in NaCl (PF) 0.9% 10 mL injection (DEFINITY) INTRAVENOUS DIRECTED PRN sodium chloride 0.9 % (flush) 10 mL (BD POSIFLUSH) 10 mL INTRAVENOUS DIRECTED PRN Allergies: Aspirin, Penicillins, Pollen, and Topamax [Topiramate] Jersey Cole MD documented in this encounter [facility] 09-20-2022 Miscellaneous Notes SW called pt to assess needs due to a score of 15 on a recent PHQ and a score of 8 on a recent distress thermometer. Pt unavailable. ERMELINDA left message with direct call-back number. PHQ-9 04/13/2022 06/07/2022 09/14/2022 Score 14 15 15 Unable To Reach Patient JONH Sharma documented in this encounter [facility] 09-16-2022 History of Present illness Narrative Diagnosis: 1) CML chronic phase 2) MGUS HPI: The patient is a 51 yo male who has h/o MS (exacerbating/remitting type; previous medications for MS: Avonex (2005), IV Steroids (2005) and PO Steroids (taper was rough, IV no issues). Currently on Tecfidera (May 2013). Symptoms from MS had been very stable since starting Tecfidera. Had several episodes syncope since July of 2014. See cardiology note for full history. Around the time of the first syncopal event, he started having a sensation of tightness in the hands b/l. No paresthesia or numbness. Toes had same feeling but got a sensation of numbness when bending toes. Work up for this revealed IgA lambda on IF. Not detected on SPEP. Bone marrow biopsy incidentally revealed CML: 46,XY,t(9;22)(q34;q11.2)[7]/46,XY[ 13] BCR/ABL1 transcripts detected, p210 (e13a2) isoform Peripheral counts normal at time of diagnosis. No enlargement of spleen on an MRI from 10/2016. Previous therapy: 1) Started imatinib 01/05/2015. Current therapy: 1) Sprycel 80 mg daily. He had been tolerating Gleevec very well but he was starting to have an increasing number of transcripts on PCR testing. Transition to Sprycel but got significant headache at the 100 mg dose. Dose was therefore decreased 80 mg and since then he had no recurrence headache. About a week prior to 2019 he started developing vague abdominal pain that was all throughout the abdomen. Since then it has gotten progressively worse and has been more stable now but is characterized by exacerbations where he feels a sensation of numbness and tingling in the right abdomen. It seems to start in the right back of the abdomen and come straight through to the front. He has not noticed any exacerbating or relieving factors. His appetite has been normal. He does not have any nausea. No early satiety. Reflux symptoms are under very good control. Bowels have been moving about every other day. Stools are normal in caliber and color. No sign of GI bleeding. He has been undergoing a work-up for this pain. CT abdomen and pelvis 12/05/2020: RESULT: Liver: No mass. Biliary: No bile duct dilation. Gallbladder is unremarkable. Spleen: No mass. No splenomegaly. Pancreas: No mass or duct dilation. Adrenals: No mass. Kidneys: Prominence RIGHT renal collecting system and mild RIGHT hydroureter to the level of the urinary bladder. No calculus is evident. There is no renal mass. 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 GI tract: There is mild dilatation of a few LEFT abdominal jejunal loops. No other dilated bowel is appreciated. The appendix appears normal. Lymph nodes: No abdominal or pelvic lymphadenopathy. Mesentery/Peritoneum: No ascites or mass. Retroperitoneum: No mass. Vasculature: The celiac axis and SMA are patent. The portal vein and branches, splenic vein, SMV, and hepatic veins are patent. No abdominal aortic or iliac artery aneurysm. Pelvis: No mass, ascites or fluid collection. Bones/Soft Tissues: No significant finding. Lower thorax: Unremarkable. Commercial Installer (topogram) images: Unremarkable. Ultrasound right upper quadrant and spleen 12/07/2020: Pancreas: Normal sonographic appearance. Portions obscured: tail Liver: Echotexture: Homogeneous Echogenicity: Normal Surface contour: Smooth Lesions: None. Biliary: No intrahepatic biliary duct dilation. CBD: 3 mm in diameter. Gallbladder: Normal caliber -Contents: No cholelithiasis -Wall: Normal -Other: Negative sonographic Francis's sign. Right Kidney: Within normal limits, measuring 12.6 cm in length. Spleen: Enlarged spleen is noted, measuring 15.6 cm in length. Presents for ongoing oncologic management. Had EMG in March 2021. EMG of the left lower extremity revealed chronic motor axonal loss changes consistent with intraspinal canal lesion affecting the left L5 root or segments (i.e. motor radiculopathy), mild in degree electrically with evidence of active or ongoing motor axonal loss. There was a presence of mild, active motor axonal loss limited to intrinsic foot muscles and was of unclear clinical significance and may be related to local foot trauma or secondary to shoe wear. Repeat EGD 05/2021. The examined portion of the May and duodenum were normal. Gastritis was observed characterized by mild inflammation erosions and erythema in the entire stomach. Biopsies were obtained. Normal lower third of the esophagus and middle esophagus. Both areas were biopsied. Pathology: 1. Antrum, biopsy (A) - Antral mucosa with no diagnostic alterations. - No morphologic evidence of Helicobacter pylori microorganisms. 2. Distal esophagus, biopsy (B) - Squamous epithelium and inflamed cardia-type mucosa, negative for intestinal metaplasia or dysplasia. 3. Mid esophagus, biopsy (C) - Squamous epithelium with no diagnostic alteration. Presents for ongoing oncologic management. Interim history: Still on omeprazole 40 mg daily. No reflux. Off tecfidera since last July to see if contributing to abdominal pain. Changed neurologists to [facility]. MS symptoms flaring. Tolerating Sprycel well with no side effect that he can determine. PMH, medications and allergies as below personally reviewed by me today. Any changes documented in appropriate section. ROS: Constitutional: No recent fever. No drenching night sweats. Chronic fatigue. HEENT: No recent change in voice, vision or hearing. Resp: Denies cough, wheeze and hemoptysis. CVS: Denies LE edema. GI: See above. : No dysuria or gross hematuria. No symptoms of bladder outlet obstruction. Endo: No hot flashes. Derm: No rash ir itch currently. Psych: Stable mood. PHYSICAL EXAM: Vitals: Blood pressure 123/80, pulse 62, temperature 36.7 C (98 F), temperature source Temporal, weight 88 kg (194 lb). Well-appearing and in no acute distress. EYES: Sclerae are anicteric bilaterally. NECK: Supple. LYMPHATIC: There is no palpable cervical or supraclavicular adenopathy. RESPIRATORY: Inspiratory breath sounds are of diminished intensity in all sotelo. No rales, wheezes or rhonchi. CARDIOVASCULAR: Rhythm is regular. ABDOMEN: The abdomen is nondistended. No organomegaly. No tenderness. Extremities: No swelling or edema. SKIN: No jaundice or rash currently. NEUROLOGIC: general production manager II-XII are grossly intact. No focal motor weakness. LABS: Component Latest Ref Rng & Units 09/02/2022 WBC 3.70 - 11.00 k/uL 6.08 RBC 4.20 - 6.00 m/uL 4.95 Hemoglobin 13.0 - 17.0 g/dL 14.0 Hematocrit 39.0 - 51.0 % 43.7 MCV 80.0 - 100.0 fL 88.3 MCH 26.0 - 34.0 pg 28.3 MCHC 30.5 - 36.0 g/dL 32.0 RDW-CV 11.5 - 15.0 % 14.1 Platelet Count 150 - 400 k/uL 205 MPV 9.0 - 12.7 fL 10.8 Neut% % 52.6 Abs Neut (ANC) 1.45 - 7.50 k/uL 3.20 Lymph% % 36.3 Abs Lymph 1.00 - 4.00 k/uL 2.21 Hays% % 7.6 Abs Hays <0.87 k/uL 0.46 Eosin% % 3.0 Abs Eosin <0.46 k/uL 0.18 Baso% % 0.2 Abs Baso <0.11 k/uL <0.03 Immature Gran % % 0.3 IMMATURE GRANS (ABS) <0.10 k/uL <0.03 NRBC /100 WBC 0.0 Absolute nRBC <0.01 k/uL <0.01 DTYPE Auto Protein, Total 6.3 - 8.0 g/dL 7.0 Albumin 3.9 - 4.9 g/dL 4.8 Calcium 8.5 - 10.2 mg/dL 9.4 Bilirubin, Total 0.2 - 1.3 mg/dL 0.4 Alkaline Phosphatase 38 - 113 U/L 112 AST 14 - 40 U/L 17 ALT 10 - 54 U/L 11 Glucose 74 - 99 mg/dL 84 BUN 9 - 24 mg/dL 20 Creatinine 0.73 - 1.22 mg/dL 0.99 Sodium 136 - 144 mmol/L 137 Potassium 3.7 - 5.1 mmol/L 4.3 Chloride 97 - 105 mmol/L 103 CO2 22 - 30 mmol/L 24 Anion Gap 9 - 18 mmol/L 10 eGFR >=60 mL/min/1.73m 92 Lipase 16 - 61 U/L 29 Phosphorus 2.7 - 4.8 mg/dL 3.3 B2 Microglobulin 0.8 - 2.4 mg/L 2.3 %IS went from 0.0133-0.0044 as of 05/17/2022. MR went from 3.88-4.36 as of 05/17/2022. PATHOLOGY: Bone marrow biopsy 01/03/2021: A Congo Red stain performed on the clot section is negative for amyloid. FINAL DIAGNOSIS BONE MARROW, ASPIRATE SMEAR AND CORE BIOPSY, WITH CLOT SECTION AND PERIPHERAL BLOOD SMEAR: - INVOLVED BY PLASMA CELL NEOPLASM WITH 5-10% PLASMA CELLS - CELLULAR BONE MARROW WITH TRILINEAGE HEMATOPOIESIS AND OCCASIONAL HYPOLOBATE MEGAKARYOCYTES. - STAINABLE IRON PRESENT. - SEE COMMENT. Comment: The patient is a 50-year-old male with a history of CML, IgA lambda monoclonal gammopathy and multiple sclerosis. The bone marrow is involved by a plasma cell neoplasm with 5-10% lambda monotypic plasma cells identified by immunohistochemistry performed on the clot section. The bone marrow also shows occasional hypolobate megakaryocytes, raising the possibility of persistent CML. 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 -Serum monoclonal protein by immunofixation only. Not quantifiable by electrophoresis. -Small increase in serum lambda. -Repeat bone marrow biopsy 01/2021 suggested some progression with areas up to 10% plasma cells. -Whole-body bone CT 02/01/2021 revealed no lytic bone lesions. Plan: -Recheck in 12 months. -Consider repeat bone marrow biopsy at that time. (C92.10) CML (chronic myeloid leukemia) ([facility]) Assessment: -Diagnosis was incidental on work up for monoclonal protein--was found to have t(9;22) on cytogenetics. -There was a complete cytogenetic response at 1 year (repeat bone marrow biopsy January 2016). -Increasing transcript number on Gleevec. -Continues to tolerate Sprycel at 80 mg daily without side effect. -Was losing molecular response then found out he had been off Sprycel for at least a month in the spring 2018. -Now again taking consistently with no symptomatic side effect. -Has been on PPI intermittently for reflux symptoms. Most recent EGD showed persistent gastritis. -Repeat CT in May demonstrated normal size spleen. -MRI 4.36 05/2022. Plan: -Continue Sprycel at 80 mg daily. -Repeat PCR in 6 months. Portions of this documentation were copied and pasted from previous office visit notes in order to provide a cohesive continuity of the history. The note has been reviewed and edited and updated as necessary. Otoniel Heaton DO documented in this encounter [facility] 09-09-2022 Miscellaneous Notes Patient phones requesting refills as follows: Requested Prescriptions Pending Prescriptions Disp Refills linaCLOtide (LINZESS) 72 mcg capsule 30 capsule 5 Sig: Take first thing in the morning, 30 minutes before eating anything.Swallow whole; DO NOT crush or chew. Please review and advise. Adams Welch MA documented in this encounter [facility] 09-02-2022 Miscellaneous Notes Patient here for labs. Please file orders. Fawn Fontenot LPN documented in this encounter [facility] 09-02-2022 History of Present illness Narrative Radiology Service Progress Note PATIENT NAME: Otoniel Desai DATE OF SERVICE: September 02, 2022 TIME: 1:37 PM PATIENT IDENTITY VERIFICATION COMPLETED USING TWO (2) IDENTIFIERS: Name and Date of confirmed by patient verbally. FALL SCREENING: Has the patient had 2 falls in the last year or 1 fall with injury or currently using an Ambulatory Assistive Device (Walker, Cane, Wheelchair, Crutches, etc.)? No PATIENT GENDER DATA: Male PATIENT RELEVANT IMPLANT DATA REVIEWED: Not Applicable RADIOLOGY DEPARTMENT: Bone Density PERIPHERAL IV DATA: Not applicable SIGNED BY: RT Que(R) September 02, 2022 1:37 PM documented in this encounter [facility] 08-15-2022 Miscellaneous Notes Pt notified of results via [employer]. Radha Crystal Ma Please inform patient that his vitamin B12 levels are low normal. I would like him to have additional labs drawn as ordered below Noman Dean DO documented in this encounter [facility] 08-13-2022 Nurse Note AMBULATORY PATIENT EDUCATION NOTE TOPIC: GI PROCEDURES: Esophagogastroduodenoscopy(EGD) with or without biopies based on clinical findings, removal of polyps or lesions READINESS TO LEARN INSTRUCTION PROVIDED TO: Patient and family member COGNITIVE ABILITY: Alert and oriented PTED MOTIVATION TO LEARN: Eager FAMILY SUPPORT: High - Very involved in pt care IPATIENT LEARNS BEST BY: Individual Instruction Written Instruction - Hand-outs Verbal Instruction FACTORS AFFECTING LEARNING: None PHYSICAL LIMITATIONS AFFECTING LEARNING: None LEARNING RESPONSE METHOD OF INSTRUCTION: Individual instruction PATIENT / FAMILY RESPONSE: Verbalizes understanding of: WORSENING CONDITION-Signs and symptoms of a worsening condition that warrant a call to the physician FOLLOW-UP PLAN: Patient instructed to call with any further issues SUPPLEMENTAL MATERIAL: Procedure Discharge Instructions REFERRAL (RECOMMENDATION): None PRE OP LEARNING ASSESSMENT PROCEDURE/SURGERY: GI PROCEDURES: EGD READINESS TO LEARN COGNITIVE ABILITY: Alert and oriented MOTIVATION TO LEARN: Eager Interested FAMILY SUPPORT: High PATIENT LEARNS BEST BY: Individual Instruction Verbal Instruction FACTORS AFFECTING LEARNING: None PHYSICAL LIMITATIONS AFFECTING LEARNING: None Electronically Signed By: Willow Rasmussen RN In Department: GASTROENTEROLOGY documented in this encounter [facility] 08-13-2022 Miscellaneous Notes Surgery has been scheduled as requested. Surgical request completed for left elbow lateral extensor tendon debridement at [facility] on 08/23/2022. Post op appointments have been scheduled and mailed to patient. documented in this encounter [facility] 08-13-2022 History of Present illness Narrative CC: Otoniel Desai is a 52 year old male who presents to the office for 3 months follow up HPI: Seen in office on 01/22/22 About 2-3 weeks ago, he states that he states that he tripped and caught himself with his left knee against an edge of a steel object on front of the knee and after that has had some discomfort. Worse with movement/walking, feels that he is feeling a grinding under my knee cap , symptoms come and go. No locking or giving out. Feels like there is some swelling present there B/l elbow pain, started as left elbow pain about 2-3 months ago, now right elbow is bothering him. Has been using a left elbow tennis band with some benefit. No known injuries or overuse activities. Hasn't take any medications for this Stomach upset symptoms and GERD, long standing, seems to be worse over the last year. Has had gastric emptying study which is normal. has had EGD in the last 6-9 months. Has increased prilosec to 40 mg a day, has seen Gastroenterogy and saw Ny Rodriguez and Dr. Lee, restarted Prilosec on 2020 due to these symptoms. Hasn't started the carafate medication, which is the newest recommendations by Ny. No obvious new blood in stool or vomiting. ADHD, stable, taking adderall. Chronic b/l leg pain and MS, taking Larose as prescribed, tolerating well. Helps with ADLs and IADLs with dressing, bathing, gait, daily functioning. No new SE with medication at last OFFICE VISIT on 02/13/22 Left knee pain, still present after his trip/fall against left knee about 6 weeks ago. Did have xray completed after last OFFICE VISIT which showed OA changes in knee and some swelling over patella, no fracture. Has been trying to rest and ice knee, still bothering him to walk due to joint pain. Asking for option to try. B/l elbow pain left >right, has been using tennis elbow brace/band on forearm with some relief. NSAID and icing, still causing discomfort with arm/hand use. Right leg sore spot and discomfort, mild local swelling, no known injury or recent travel, no drainage or fevers or chills. Not using anything on the area. Chest pressure, off and on, sometimes with rest and sometimes with exertion, no symptoms today, present x weeks/months, no dyspnea or dizziness/Lh or palpitations that are new. Occasional right neck pain, no injuries or fevers or chills. At follow up on 05/13/22 ADHD, taking adderall XR in the morning. Sometimes feels his symptoms aren't well enough controlled in the afternoon/evening. Wondering if dose adjustment can be made. Denies any SE from medication. Chronic b/l leg pain and MS, taking Larose as prescribed, tolerating well. Helps with ADLs and IADLs with dressing, bathing, gait, daily functioning. No new SE with medication Fullness and discomfort feeling in his neck, right sided and sharp shooting pain, lasting typically minutes, intermittent, states has been occurring x months, no fevers or chills. 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 Has had a neck MRI in the last 6-12 months which showed some DDD and DJD cervical spine, has been off his MS medications per Neurologist guidance since July 2021. Continues to have weakness and tingling and pain into arms, difficulty with commissary assistant strength of hands etc. No recent injuries or whiplash etc. Continued abdominal discomfort, GI upset, GERD symptoms, has been seeing Gastro LALO Alejandra and had an Upper GI and Small bowel series that was normal. Last EGD 01/2021. No known blood in stool. Is taking the prilosec consistently and trying to follow low acid diet and symptoms are persisting. Spontaneous bruising, no associated injury, increased the last few months. Taking vitamin D supplements. Arms and legs Currently GERD symptoms with worsening GI upset, has EGD scheduled to be done today with sedation. Has been seeing Gastro ABBI Alejandra ADHD, taking adderall XR in the morning. Sometimes feels his symptoms aren't well enough controlled in the afternoon/evening. Wondering if dose adjustment can be made. Denies any SE from medication. Chronic b/l leg pain and MS, taking Larose as prescribed, tolerating well. Helps with ADLs and IADLs with dressing, bathing, gait, daily functioning. No new SE with medication Recently had a vision evaluation/burn out scarfing operator appt with Ondinanikolai Arboleda OD, for blurring vision. Has myopia and presbyopia. Has bifocal glasses. CML, taking Sprycel Dasatinib per Dr. Heaton Oncologist MS, hasn't been on immune suppressant medication for 1 year. Is seeing Neurologist at [facility] now. PAST MEDICAL HISTORY Diagnosis Date ADHD (attention deficit hyperactivity disorder) Arrhythmia Arthritis Bipolar 1 disorder ([facility]) Dr. Easley [facility] Chronic obstructive pulmonary disease ([facility]) 04/19/2019 Chronic obstructive pulmonary disease ([facility]) CML (chronic myeloid leukemia) ([facility]) 02/13/2015 Dr. 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 Vasquez Neurologist Multiple sclerosis ([facility]) 10/2005 Dr. Mauricio Vasquez Neurologist Osteoarthritis of left knee 01/2022 Other symptoms involving abdomen and pelvis(789.9) Palpitations Schizophrenia ([facility]) Dr. Easley [facility] Snoring Substance abuse rule out 03/15/2015 Syncope Tobacco abuse PAST SURGICAL HISTORY Procedure Laterality Date BONE MARROW BIOPSY 12/2015 COLONOSCOPY FLX DX W/COLLJ SPEC WHEN PFRMD 07/22/2012 Colonoscopy repeat 3 years-requires MAC anesthesia COLONOSCOPY FLX DX W/COLLJ SPEC WHEN PFRMD 07/26/2015 Colonoscopy-pt requires MAC COLONOSCOPY SCRN NOT HIGH RISK 12/26/2020 COLONOSCOPY W/BIOPSY SINGLE/MULTIPLE 05/29/2006 repeat in 10 yrs EGD 12/26/2020 EGD 02/15/2021 ESOPHAGOGASTRODUODENOSCOPY TRANSORAL DIAGNOSTIC 02/03/2012 EGD ESOPHAGOGASTRODUODENOSCOPY TRANSORAL DIAGNOSTIC 02/07/2016 EGD ESOPHAGOGASTRODUODENOSCOPY TRANSORAL DIAGNOSTIC 05/01/2021 PAST SURGICAL HISTORY OF bladder growth- benign PAST SURGICAL HISTORY OF 2015 removal skin cancer right side neck TONSILLECTOMY HX Current Outpatient Medications Medication Sig dextroamphetamine-amphetamine (ADDERALL) 10 mg tablet Take 1 tablet by mouth once daily for 30 days. In the afternoon as needed for concentration impairment amphetamine-dextroamphetamine XR (ADDERALL XR) 30 mg 24 hr capsule Take 1 capsule by mouth once daily for 30 days. HYDROcodone-acetaminophen (NORCO) 5-325 mg per tablet Take 1 tablet by mouth twice daily as needed for pain for up to 30 days. diclofenac (VOLTAREN) 1 % topical gel apply 2 grams TO AFFTECTED AREA three times a day oxybutynin ER (DITROPAN XL) 15 mg 24 hr Extended Rel Tab take 1 tablet by mouth once daily dasatinib (SPRYCEL) 80 mg tablet Take 1 tablet (80mg) by mouth once daily. ANORO ELLIPTA 62.5-25 mcg/actuation inhaler inhale 1 puff by mouth and INTO THE LUNGS once daily omeprazole (PRILOSEC) 40 mg capsule take 1 capsule by mouth once daily atenolol (TENORMIN) 25 mg tablet take 1 tablet by mouth once daily albuterol HFA (VENTOLIN HFA) 90 mcg/actuation inhaler INHALE 2 PUFFS INSTRUCTED EVERY FOUR HOURS NEEDED FOR WHEEZING / SHORTNESS OF BREATH linaCLOtide (LINZESS) 72 mcg capsule Take first thing in the morning, 30 minutes before eating anything.Swallow whole; DO NOT crush or chew. sucralfate (CARAFATE) 1 gram tablet Take 1 tablet by mouth three times daily. gabapentin (NEURONTIN) 600 mg tablet TAKE 1 TABLET BY MOUTH THREE TIMES A DAY gemfibrozil (LOPID) 600 mg tablet Take 1 tablet by mouth twice daily. dicyclomine (BENTYL) 20 mg tablet Take 1 tablet by mouth three times daily. Cholecalciferol, Vitamin D3, (VITAMIN D-3) 50 mcg (2,000 unit) cap Take 1 capsule by mouth once daily. lactobacillus rhamnosus (CULTURELLE) 15 billion cell capsule Take 1 capsule by mouth once daily. lamoTRIgine (LAMICTAL) 200 mg tablet Take 1 tablet by mouth once daily. ARIPiprazole (ABILIFY) 5 mg tablet Take 1 tablet by mouth once daily. vilazodone (VIIBRYD) 40 mg tablet Take 40 mg by mouth once daily. Current Facility-Administered Medications Medication Dose Route Frequency perflutren lipid microspheres 1.3 mL in NaCl (PF) 0.9% 10 mL injection (DEFINITY) INTRAVENOUS DIRECTED PRN sodium chloride 0.9 % (flush) 10 mL (BD POSIFLUSH) 10 mL INTRAVENOUS DIRECTED PRN ALLERGIES Allergen Reactions Aspirin GI Upset Penicillins Hives Pollen Itching Topamax [Topiramate] Other: See Comments Severe migraines Social History Tobacco Use Smoking status: Light Smoker Packs/day: 1.00 Years: 30.00 Pack years: 30.00 Types: Cigarettes Smokeless tobacco: Never Tobacco comments: Pt has cut back to 1 cigarette daily. Vaping Use Vaping Use: Never used Substance Use Topics Alcohol use: Not Currently Drug use: No ROS: See HPI PE: BP 120/80 Pulse 68 Temp (Src) 97 (Left Tympanic) Resp 16 Wt 187 lb (84.8kg) Gen: A&OX3, NAD, non-toxic appearing HEENT: PERRLA, EOMs intact b/l, nares without drainage, pharynx without erythema, exudate, lesions, or drainage. Uvula midline. Neck: mild fullness in anterior inferior neck and supraclavicular area with associated discomfort, no obvious thyromegaly, no meningismus. ? Right carotid bruit present, no pain with swallowing CV: RRR, no murmur Lungs: CTA b/l, no wheezing Skin: No rashes, lesions, or wounds on exposed skin. Scattered bruises present right and left arms, right and left thighs. Gait is slowed Weakness of hand commissary assistant b/l, weakness of biceps strength Wearing glasses Reduced ROM cervical spine ASSESSMENT/PLAN: 1. Bilateral leg pain - ICD9: 729.5, ICD10: M79.604, M79.605 (primary diagnosis) rx refilled, overall symptoms are stable for leg pain, needs to follow up with Neurologist for management of his MS, which he is aware. No recent falls. Needs to see Display Fabrication Supervisor for follow up as well - HYDROCODONE 5 MG-ACETAMINOPHEN 325 MG TABLET 2. Need for influenza vaccination - ICD9: V04.81, ICD10: Z23 - INFLUENZA VACCINE QUADRIVALENT 6 MO - 64 YRS IM 3. Multiple sclerosis (HCC) - ICD9: 340, ICD10: G35 rx refilled, overall symptoms are stable for leg pain, needs to follow up with Neurologist for management of his MS, which he is aware. No recent falls. Needs to see Display Fabrication Supervisor for follow up as well - HYDROCODONE 5 MG-ACETAMINOPHEN 325 MG TABLET - COMP METABOLIC PANEL - TSH BLD 4. Attention deficit disorder, unspecified hyperactivity presence - ICD9: 314.00, ICD10: F98.8 Chronic, stable, taking medications as prescribed, tolerating well. - DEXTROAMPHETAMINE-AMPHETAMINE ER 30 MG 24HR CAPSULE,EXTEND RELEASE - DEXTROAMPHETAMINE-AMPHETAMINE 10 MG TABLET 5. Attention deficit disorder, unspecified hyperactivity presence - ICD9: 314.00, ICD10: F98.8 Chronic, stable, taking medications as prescribed, tolerating well - DEXTROAMPHETAMINE-AMPHETAMINE 10 MG TABLET 6. Screening for osteoporosis - ICD9: V82.81, ICD10: Z13.820 - DXA-AXIAL SKELETON 7. CML (chronic myeloid leukemia) (HCC) - ICD9: 205.10, ICD10: C92.10 - f/u with Oncologist, need for bone density evaluation. - DXA-AXIAL SKELETON 8. Vitamin D deficiency - ICD9: 268.9, ICD10: E55.9 Recheck labs as ordered. - VITAMIN D 25 HYDROXY 9. Other hyperlipidemia - ICD9: 272.4, ICD10: E78.49 - recheck labs as ordered. - COMP METABOLIC PANEL - TSH BLD 10. Vitamin B12 deficiency - ICD9: 266.2, ICD10: E53.8 - recheck labs, has fatigue that is chronic - VITAMIN B12 BLOOD 11. Other specified disorders of bone density and structure, multiple sites - ICD9: 733.99, ICD10: M85.89 - check bone density - DXA-AXIAL SKELETON Noman Dean DO Return if no improvement. Follow up with Noman Dean DO. To ER if develops chest pain, shortness of breath Discussed risks, benefits, alternatives, and potential side effects of medications. Patient/Guardian expressed understanding and agreed with the plan. See patient instructions. Noman Dean DO [address] [place] [address] documented in this encounter [facility] 08-08-2022 Miscellaneous Notes PDMP website checked and validated. All prescriptions have been APPROPRIATELY filled. No suspicious activity was identified. 08/08/2022 by Maria Dolores Young APRN.CNP The following approved medication requests have been transmitted electronically. Requested Prescriptions Signed Prescriptions Disp Refills dextroamphetamine-amphetamine (ADDERALL) 10 mg tablet 30 tablet 0 Sig: Take 1 tablet by mouth once daily for 30 days. In the afternoon as needed for concentration impairment Authorizing Provider: MARIA DOLORES YOUNG amphetamine-dextroamphetamine XR (ADDERALL XR) 30 mg 24 hr capsule 30 capsule 0 Sig: Take 1 capsule by mouth once daily for 30 days. Authorizing Provider: MARIA DOLORES YOUNG HYDROcodone-acetaminophen (NORCO) 5-325 mg per tablet 60 tablet 0 Sig: Take 1 tablet by mouth twice daily as needed for pain for up to 30 days. Authorizing Provider: MARIA DOLORES YOUNG APRN.SANDWICH COUNTER ATTENDANT [place]-- 05/13/22 next-- 08/13/22 Last refill-- norc 07/10/22 60 with 0 refills Adderall 30mg 07/10/22 30 with 0 Adderrall 10mg 07/10/22 30 with 0 Last labs--05/17/22 Patient has been identified by name and date of : Yes Patient phones for refill(s): Requested Prescriptions Pending Prescriptions Disp Refills dextroamphetamine-amphetamine (ADDERALL) 10 mg tablet 30 tablet 0 Sig: Take 1 tablet by mouth once daily for 30 days. In the afternoon as needed for concentration impairment amphetamine-dextroamphetamine XR (ADDERALL XR) 30 mg 24 hr capsule 30 capsule 0 Sig: Take 1 capsule by mouth once daily for 30 days. HYDROcodone-acetaminophen (NORCO) 5-325 mg per tablet 60 tablet 0 Sig: Take 1 tablet by mouth twice daily as needed for pain for up to 30 days. Date of last office visit in primary care: 05/13/22, NOV: 08/13/22 Last 2 Encounter Wt Readings: Date: Wt: 05/22/2022 82.6 kg (182 lb) 05/21/2022 82.6 kg (182 lb) Please advise. Thank you. Abeba Pettit RN documented in this encounter [facility] 08-08-2022 History of Present illness Narrative Jersey Cole MD Department of Orthopaedics Orthopaedics [address] [facility] [address] Dept: [phone] Dept August 08, 2022 CHIEF COMPLAINT: Established Patient and Follow Up of the Left Elbow HPI Patient here today for 4 month post visit bilateral chronic elbow pain. He reports the left is worse than the right. Last injection only helped for a couple of weeks. He is right hand dominant. ASSESSMENT: M25.522, G89.29 Chronic elbow pain, left (primary encounter diagnosis) M77.11, M77.12 Lateral epicondylitis of both elbows PLAN: We reviewed the risks, benefits, alternatives and potential complications with both surgical, non-surgical, percutaneous tenotomy, etc. He wishes to proceed with surgery. He previously had limited benefit from a cortisone injection. Mr. Otoniel Desai was advised as to contrast therapies and/or to take analgesics/anti-inflammatories as needed and all contraindications were reviewed. OBJECTIVE: Mr. Otoniel Desai is a pleasant 52 year old in no apparent distress. Gen:There were no vitals taken for this visit. nl development, non obese, no deformities ENT: Normocephalic, normal hearing, moist mucosa CV: Pulses:Radial= 2+ and symmetric, capillary refill < 2 secs, no peripheral edema/varicosities Skin: no rash, bruising or lesions. Good turgor. Psych: cooperative and appropriate, alert and oriented x 3, good mood and affect. Musculoskeletal: Tender to palpation over the lateral epicondyle, left greater than right. Pain on resisted elbow, wrist and middle finger extension. Imaging: Deferred today. Supporting Subjective Information Below: Past Surgical History: PAST SURGICAL HISTORY Procedure Laterality Date BONE MARROW BIOPSY 12/2015 COLONOSCOPY FLX DX W/COLLJ SPEC WHEN PFRMD 07/22/2012 Colonoscopy repeat 3 years-requires MAC anesthesia COLONOSCOPY FLX DX W/COLLJ SPEC WHEN PFRMD 07/26/2015 Colonoscopy-pt requires MAC COLONOSCOPY SCRN NOT HIGH RISK 12/26/2020 COLONOSCOPY W/BIOPSY SINGLE/MULTIPLE 05/29/2006 repeat in 10 yrs EGD 12/26/2020 EGD 02/15/2021 ESOPHAGOGASTRODUODENOSCOPY TRANSORAL DIAGNOSTIC 02/03/2012 EGD ESOPHAGOGASTRODUODENOSCOPY TRANSORAL DIAGNOSTIC 02/07/2016 EGD ESOPHAGOGASTRODUODENOSCOPY TRANSORAL DIAGNOSTIC 05/01/2021 PAST SURGICAL HISTORY OF bladder growth- benign PAST SURGICAL HISTORY OF 2015 removal skin cancer right side neck TONSILLECTOMY HX Medications: Current Outpatient Medications Medication Sig diclofenac (VOLTAREN) 1 % topical gel apply 2 grams TO AFFTECTED AREA three times a day oxybutynin ER (DITROPAN XL) 15 mg 24 hr Extended Rel Tab take 1 tablet by mouth once daily dextroamphetamine-amphetamine (ADDERALL) 10 mg tablet Take 1 tablet by mouth once daily for 30 days. In the afternoon as needed for concentration impairment amphetamine-dextroamphetamine XR (ADDERALL XR) 30 mg 24 hr capsule Take 1 capsule by mouth once daily for 30 days. HYDROcodone-acetaminophen (NORCO) 5-325 mg per tablet Take 1 tablet by mouth twice daily as needed for pain for up to 30 days. dasatinib (SPRYCEL) 80 mg tablet Take 1 tablet (80mg) by mouth once daily. ANORO ELLIPTA 62.5-25 mcg/actuation inhaler inhale 1 puff by mouth and INTO THE LUNGS once daily omeprazole (PRILOSEC) 40 mg capsule take 1 capsule by mouth once daily atenolol (TENORMIN) 25 mg tablet take 1 tablet by mouth once daily albuterol HFA (VENTOLIN HFA) 90 mcg/actuation inhaler INHALE 2 PUFFS INSTRUCTED EVERY FOUR HOURS NEEDED FOR WHEEZING / SHORTNESS OF BREATH linaCLOtide (LINZESS) 72 mcg capsule Take first thing in the morning, 30 minutes before eating anything.Swallow whole; DO NOT crush or chew. sucralfate (CARAFATE) 1 gram tablet Take 1 tablet by mouth three times daily. gabapentin (NEURONTIN) 600 mg tablet TAKE 1 TABLET BY MOUTH THREE TIMES A DAY gemfibrozil (LOPID) 600 mg tablet Take 1 tablet by mouth twice daily. dicyclomine (BENTYL) 20 mg tablet Take 1 tablet by mouth three times daily. Cholecalciferol, Vitamin D3, (VITAMIN D-3) 50 mcg (2,000 unit) cap Take 1 capsule by mouth once daily. lamoTRIgine (LAMICTAL) 200 mg tablet Take 1 tablet by mouth once daily. ARIPiprazole (ABILIFY) 5 mg tablet Take 1 tablet by mouth once daily. vilazodone (VIIBRYD) 40 mg tablet Take 40 mg by mouth once daily. lactobacillus rhamnosus (CULTURELLE) 15 billion cell capsule Take 1 capsule by mouth once daily. (Patient not taking: Reported on 08/08/2022) Current Facility-Administered Medications Medication Dose Route Frequency perflutren lipid microspheres 1.3 mL in NaCl (PF) 0.9% 10 mL injection (DEFINITY) INTRAVENOUS DIRECTED PRN sodium chloride 0.9 % (flush) 10 mL (BD POSIFLUSH) 10 mL INTRAVENOUS DIRECTED PRN Allergies: Aspirin, Penicillins, Pollen, and Topamax [Topiramate] ROS: General (negative for fatigue, malaise, weight loss/gain) HEENT (negative for headache, earache, recent vision changes, sinus pain, sore throat) Respiratory (no recent shortness of breath, hemoptysis) CV (negative for chest tightness, palpitations) Musculoskeletal (see HPI) Psych (no depression, anxiety) Jersey Cole MD documented in this encounter [facility] 08-06-2022 Miscellaneous Notes Attempted to reach the patient at the contact number that they provided [phone] (home). Unable to speak with patient so without identifying the patient the following information was left on their voice mail: -Date of procedure, location and report time -A message was left informing the patient/patient personnel representative they must have a responsible adult accompany them to their procedure; and remain in the endoscopy area until they are discharged. Failure to have a responsible adult accompany the patient to their procedure appointment prevents the use of sedation or anesthesia for their procedure; and can result in cancellation of the procedure -NPO instructions were reviewed. -Instructions to contact their primary care provider regarding their medications and which medications to stop in preparation for their procedure -Number to call with questions or concerns [phone] Aby Marin YARDAGE CONTROL OPERATOR FORMING documented in this encounter [facility] 08-06-2022 Miscellaneous Notes Patient phones requesting refills as follows: Requested Prescriptions Pending Prescriptions Disp Refills diclofenac (VOLTAREN) 1 % topical gel [Pharmacy Med Name: DICLOFENAC SODIUM 1% GEL] 100 g 0 Sig: apply 2 grams TO AFFTECTED AREA three times a day HIWOT-05/13/22 Labs-05/17/22 NOV-08/13/22 med filled 05/06/22 Please review and advise. Lucinda Fournier LPN documented in this encounter [facility] 07-26-2022 Miscellaneous Notes I called and spoke with patient. He would like to come in and discuss with Dr. Cole. Appointment made. He can either follow up with Dr. Cole and sign up for surgery for the elbow tendonitis. Or if he would like to try an in office procedure, we can get him into see Dr Smith, to see if he would be a candidate for Tenjet. Tenjet is done in the office and essentially cleans the tendons, helping with tendonitis. Either option would be appropriate, patients choice. Left elbow injection in March. Pt states that it was helpful for approx 1 month. It is really getting bad now and the right elbow is also bothering him. He was told at last appt that if the injection didn't work then he would possibly need surgery. He is just wanting to know what the next step is. I offered to make appt to discuss and he would like to discuss with Orthopedic nurse prior to scheduling. Will route to [facility] for review. Christina Orlando documented in this encounter [facility] 07-25-2022 History of Present illness Narrative 1. Meibomian gland dysfunction (MGD) of upper and lower lids of both eyes Educated pt on condition Recommended warm compresses twice daily 2. Myopia, bilateral 3. Presbyopia Continue with current glasses-will do refraction at follow-up No other ocular pathology found on examination Follow-up in 3 weeks Ondina Arboleda, OD July 25, 2022 3:13 PM documented in this encounter [facility] 07-24-2022 Miscellaneous Notes Scheduled 08/13/22 Pt called stating he tried to schedule with current order at [facility]. He states he needs order to be for full sedation and they indicated he want location to be Q3 [facility]. [facility]. Order already changed Patient wants seen where ever he can get in the fastest. Message sent to [place] scheduling office for their first available. Patient tolerated the procedure fine with at the [facility]. Can you please call patient and ask which he would prefer [place] or [place] ([facility] he would be waiting longer) Thanks Ny Rodriguez APRN.SANDWICH COUNTER ATTENDANT Per Dr mcconnell, patient needs to be MAC. Would you like patient go to [place] or [place]? Malinda, please reschedule patient if Ny would like patient to be done in [place]. Thank you, Mariano Patient is scheduled at [facility] on 07/04/[address] MCCONNELL for EGD. DX: Gastroesophageal reflux disease without esophagitis [K21.9 (ICD-10-CM)]; History of peptic ulcer disease [Z87.11 (ICD-10-CM)]; Pain of upper abdomen [R10.10 (ICD-10-CM)] Verbal and written instructions given. documented in this encounter [facility] 07-18-2022 Miscellaneous Notes EGD orders placed Ny Rodriguez APRN.CNP documented in this encounter [facility] 07-10-2022 Miscellaneous Notes PDMP website checked and validated. All prescriptions have been APPROPRIATELY filled. No suspicious activity was identified. 07/10/2022 by Maria Dolores Young APRN.CNP The following approved medication requests have been transmitted electronically. Requested Prescriptions Signed Prescriptions Disp Refills oxybutynin ER (DITROPAN XL) 15 mg 24 hr Extended Rel Tab 28 tablet 5 Sig: take 1 tablet by mouth once daily Authorizing Provider: MARIA DOLORES YOUNG dextroamphetamine-amphetamine (ADDERALL) 10 mg tablet 30 tablet 0 Sig: Take 1 tablet by mouth once daily for 30 days. In the afternoon as needed for concentration impairment Authorizing Provider: MARIA DOLORES YOUNG amphetamine-dextroamphetamine XR (ADDERALL XR) 30 mg 24 hr capsule 30 capsule 0 Sig: Take 1 capsule by mouth once daily for 30 days. Authorizing Provider: MARIA DOLORES YOUNG HYDROcodone-acetaminophen (NORCO) 5-325 mg per tablet 60 tablet 0 Sig: Take 1 tablet by mouth twice daily as needed for pain for up to 30 days. Authorizing Provider: MARIA DOLORES YOUNG APRN.SANDWICH COUNTER ATTENDANT Last Office Visit: 05/13/2022 Future Office Visit: 08/13/2022 Requested Prescriptions Pending Prescriptions Disp Refills oxybutynin ER (DITROPAN XL) 15 mg 24 hr Extended Rel Tab [Pharmacy Med Name: OXYBUTYNIN CL ER 15 MG TABLET] 28 tablet 5 Sig: take 1 tablet by mouth once daily dextroamphetamine-amphetamine (ADDERALL) 10 mg tablet 30 tablet 0 Sig: Take 1 tablet by mouth once daily for 30 days. In the afternoon as needed for concentration impairment amphetamine-dextroamphetamine XR (ADDERALL XR) 30 mg 24 hr capsule 30 capsule 0 Sig: Take 1 capsule by mouth once daily for 30 days. HYDROcodone-acetaminophen (NORCO) 5-325 mg per tablet 60 tablet 0 Sig: Take 1 tablet by mouth twice daily as needed for pain for up to 30 days. Last Labs: 02/13/2022 Last office visit: 05/13/22 Pharmacy calls in requesting the following refill(s): Requested Prescriptions Pending Prescriptions Disp Refills oxybutynin ER (DITROPAN XL) 15 mg 24 hr Extended Rel Tab [Pharmacy Med Name: OXYBUTYNIN CL ER 15 MG TABLET] 28 tablet 5 Sig: take 1 tablet by mouth once daily documented in this encounter [facility] 07-03-2022 History of Present illness Narrative [facility] Refill Assessment Medication(s): Sprycel Patient's current medication list and adherence status to current therapy were reviewed by Specialty Pharmacy clinical pharmacist to identify any new drug interactions or non-compliance to therapy. Therapy continues to be appropriate for disease, patient response, and medical condition. Verification of therapeutic benefit and effectiveness with current therapy was completed. Adverse events, barriers in adherence, and side effects were assessed and addressed if applicable. Will proceed with refill with no changes in therapy - patient progressing towards achieving therapeutic goals based on medication-specific laboratory parameters, disease state markers and outcomes. [facility] Visit Assessment - Hematology/Oncology: Assessment to use: Refill Non-Clinical Assessment: Patient confirmed: Yes Med/dose confirmed: Yes Supplies needed: N/A Missed doses: No Estimated days supply on hand: 6 Copay amount: 0 Address confirmed: Yes Delivery method: FedEx Delivery address: [address] [place] [address] [place] [address] Delivery date: 07/05/2022 Patient has questions: No Additional questions, comments, concerns: Vaccination Assessment: Date of influenza vaccination reminder: 08/01/2021 Date of most recent vaccination assessment: 08/01/2021 Treatment Plan Information: Treatment Plan Information: 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 Treatment HX: Imatinib started 01/05/15 Current Therapy Sprycel 80mg ( SE BEARD @100mg dose, abated at 80mg dose) Prescriber ok'd PPI per 07/18/21 OV note Avoid grapefruit Potential AE:Edema, BEARD, Rash, GI, Hempotologic, Infection, Neuromuscular and Musculoskeletal pain, Respiratory dypnea, pleural effusion DDI review: none new: Existing DDI Omeprazole and Sprycel, antacids 2 hrous before or after dasatanib perferred Estimated Start Date Info: Per Dr Otoniel Heaton Discretion Estimated Treatment Duration: Until progression or toxicity Jammie Cintron (Materials And Corrosion Engineer) documented in this encounter [facility] 07-03-2022 History of Present illness Narrative EGD order placed for [facility] Ny Rodriguez APRN.CNP documented in this encounter [facility] 07-03-2022 Miscellaneous Notes Pt called in and reports he wants to be scheduled as soon as possible. He reports he talked with someone and they told him to call [facility] if he wanted to be scheduled at the earliest time. Pt states he called [place] and they told him that Ny Rodriguez NP would need to change the orders for him to get the EGD up there. Pt is going to talk with Malinda about getting in at [place], but depending on how far out it is Pt is wanting provider to place a new order so he can have it up at [facility]. Pt reports his situation has gotten worse and the provider knows about it. Please call and advise. documented in this encounter [facility] 07-02-2022 Miscellaneous Notes Please review and if therapy is being continued, please sign this order request via eRx to [facility]. Pending Prescriptions Disp Refills DASATINIB 80 MG TABLET 30 tablet 2 Sig: Take 1 tablet (80mg) by mouth once daily. COLE: No Andrey Wolf, PharmD, BCPS, CSP, MSCS Clinical Pharmacist [facility] P: ; F: Pool: P [facility] Pool #: [id number] documented in this encounter [facility] 07-02-2022 Miscellaneous Notes Johana, a schedule with the call center called the office to ask you to fix the patient's EGD order. She said the anesthesia needs to be in the Sedation Required field, not the notes and to remove the [place] location, can leave it blank so they can search all locations. documented in this encounter [facility] 06-10-2022 Miscellaneous Notes PDMP website checked and validated. All prescriptions have been APPROPRIATELY filled. No suspicious activity was identified. The following approved medication requests have been transmitted electronically. Signed Prescriptions Disp Refills amphetamine-dextroamphetamine XR (ADDERALL XR) 30 mg 24 hr capsule 30 capsule 0 Sig: Take 1 capsule by mouth once daily for 30 days. MARCIO Class: C-II COLE: No Authorizing Provider: MARIA DOLORES YOUNG dextroamphetamine-amphetamine (ADDERALL) 10 mg tablet 30 tablet 0 Sig: Take 1 tablet by mouth once daily for 30 days. In the afternoon as needed for concentration impairment MARCIO Class: C-II COLE: No Authorizing Provider: MARIA DOLORES YOUNG HYDROcodone-acetaminophen (NORCO) 5-325 mg per tablet 60 tablet 0 Sig: Take 1 tablet by mouth twice daily as needed for pain for up to 30 days. MARCIO Class: C-II COLE: No Authorizing Provider: MARIA DOLORES YOUNG APRN.LALO 06/10/2022 by Maria Dolores Young APRN.SANDWICH COUNTER ATTENDANT Patient has been identified by name and date of : Yes Patient phones for refill(s): Pending Prescriptions Disp Refills DEXTROAMPHETAMINE-AMPHETAMINE ER 30 MG 24HR CAPSULE,EXTEND RELEASE 30 capsule 0 Sig: Take 1 capsule by mouth once daily for 30 days. MARCIO Class: C-II COLE: No DEXTROAMPHETAMINE-AMPHETAMINE 10 MG TABLET 30 tablet 0 Sig: Take 1 tablet by mouth once daily for 30 days. In the afternoon as needed for concentration impairment MARCIO Class: C-II COLE: No HYDROCODONE 5 MG-ACETAMINOPHEN 325 MG TABLET 60 tablet 0 Sig: Take 1 tablet by mouth twice daily as needed for pain for up to 30 days. MARCIO Class: C-II COLE: No Date of last office visit with pcp: 02-13-22. Next appt: 08-13-22 Last 2 Encounter Wt Readings: Date: Wt: 05/22/2022 82.6 kg (182 lb) 05/21/2022 82.6 kg (182 lb) Previous labs/tests for medication: Blood Pressure: BUN (mg/dL) Date Value 05/17/2022 14 01/16/2022 23 Sodium (mmol/L) Date Value 05/17/2022 136 01/16/2022 140 Last 1 Encounter BP Readings: Date: BP: 05/22/2022 121/69 Liver Function: ALT (U/L) Date Value 05/17/2022 14 01/16/2022 14 AST (U/L) Date Value 05/17/2022 25 01/16/2022 21 Please advise. Thank you. Berny Naidu RN documented in this encounter [facility] 05-22-2022 History of Present illness Narrative Diagnosis: 1) CML chronic phase 2) MGUS HPI: The patient is a 51 yo male who has h/o MS (exacerbating/remitting type; previous medications for MS: Avonex (2005), IV Steroids (2005) and PO Steroids (taper was rough, IV no issues). Currently on Tecfidera (May 2013). Symptoms from MS had been very stable since starting Tecfidera. Had several episodes syncope since July of 2014. See cardiology note for full history. Around the time of the first syncopal event, he started having a sensation of tightness in the hands b/l. No paresthesia or numbness. Toes had same feeling but got a sensation of numbness when bending toes. Work up for this revealed IgA lambda on IF. Not detected on SPEP. Bone marrow biopsy incidentally revealed CML: 46,XY,t(9;22)(q34;q11.2)[7]/46,XY[ 13] BCR/ABL1 transcripts detected, p210 (e13a2) isoform Peripheral counts normal at time of diagnosis. No enlargement of spleen on an MRI from 10/2016. Previous therapy: 1) Started imatinib 01/05/2015. Current therapy: 1) Sprycel 80 mg daily. He had been tolerating Gleevec very well but he was starting to have an increasing number of transcripts on PCR testing. Transition to Sprycel but got significant headache at the 100 mg dose. Dose was therefore decreased 80 mg and since then he had no recurrence headache. About a week prior to 2019 he started developing vague abdominal pain that was all throughout the abdomen. Since then it has gotten progressively worse and has been more stable now but is characterized by exacerbations where he feels a sensation of numbness and tingling in the right abdomen. It seems to start in the right back of the abdomen and come straight through to the front. He has not noticed any exacerbating or relieving factors. His appetite has been normal. He does not have any nausea. No early satiety. Reflux symptoms are under very good control. Bowels have been moving about every other day. Stools are normal in caliber and color. No sign of GI bleeding. He has been undergoing a work-up for this pain. CT abdomen and pelvis 12/05/2020: RESULT: Liver: No mass. Biliary: No bile duct dilation. Gallbladder is unremarkable. Spleen: No mass. No splenomegaly. Pancreas: No mass or duct dilation. Adrenals: No mass. Kidneys: Prominence RIGHT renal collecting system and mild RIGHT hydroureter to the level of the urinary bladder. No calculus is evident. There is no renal mass. 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 GI tract: There is mild dilatation of a few LEFT abdominal jejunal loops. No other dilated bowel is appreciated. The appendix appears normal. Lymph nodes: No abdominal or pelvic lymphadenopathy. Mesentery/Peritoneum: No ascites or mass. Retroperitoneum: No mass. Vasculature: The celiac axis and SMA are patent. The portal vein and branches, splenic vein, SMV, and hepatic veins are patent. No abdominal aortic or iliac artery aneurysm. Pelvis: No mass, ascites or fluid collection. Bones/Soft Tissues: No significant finding. Lower thorax: Unremarkable. Commercial Installer (topogram) images: Unremarkable. Ultrasound right upper quadrant and spleen 12/07/2020: Pancreas: Normal sonographic appearance. Portions obscured: tail Liver: Echotexture: Homogeneous Echogenicity: Normal Surface contour: Smooth Lesions: None. Biliary: No intrahepatic biliary duct dilation. CBD: 3 mm in diameter. Gallbladder: Normal caliber -Contents: No cholelithiasis -Wall: Normal -Other: Negative sonographic Francis's sign. Right Kidney: Within normal limits, measuring 12.6 cm in length. Spleen: Enlarged spleen is noted, measuring 15.6 cm in length. Presents for ongoing oncologic management. Had EMG in March 2021. EMG of the left lower extremity revealed chronic motor axonal loss changes consistent with intraspinal canal lesion affecting the left L5 root or segments (i.e. motor radiculopathy), mild in degree electrically with evidence of active or ongoing motor axonal loss. There was a presence of mild, active motor axonal loss limited to intrinsic foot muscles and was of unclear clinical significance and may be related to local foot trauma or secondary to shoe wear. Repeat EGD 05/2021. The examined portion of the May and duodenum were normal. Gastritis was observed characterized by mild inflammation erosions and erythema in the entire stomach. Biopsies were obtained. Normal lower third of the esophagus and middle esophagus. Both areas were biopsied. Pathology: 1. Antrum, biopsy (A) - Antral mucosa with no diagnostic alterations. - No morphologic evidence of Helicobacter pylori microorganisms. 2. Distal esophagus, biopsy (B) - Squamous epithelium and inflamed cardia-type mucosa, negative for intestinal metaplasia or dysplasia. 3. Mid esophagus, biopsy (C) - Squamous epithelium with no diagnostic alteration. Presents for ongoing oncologic management. Interim history: Still on omeprazole 40 mg daily. No reflux. Still has abdominal pain with eating or drinking anything. Currently getting scheduled for another EGD to reassess ulcers. Off tecfidera since last July to see if contributing to abdominal pain. Changing neurologists to [place]. Tolerating Sprycel well with no side effect that he can determine. PMH, medications and allergies as below personally reviewed by me today. Any changes documented in appropriate section. ROS: Constitutional: No recent fever. No drenching night sweats. Chronic fatigue. HEENT: No recent change in voice, vision or hearing. Resp: Denies cough, wheeze and hemoptysis. CVS: Denies LE edema. GI: See above. : No dysuria or gross hematuria. No symptoms of bladder outlet obstruction. Endo: No hot flashes. Derm: No rash ir itch currently. Psych: Stable mood. PHYSICAL EXAM: Vitals: Blood pressure 121/69, pulse 70, temperature 37.1 C (98.8 F), weight 82.6 kg (182 lb), SpO2 98 %. Well-appearing and in no acute distress. EYES: Sclerae are anicteric bilaterally. NECK: Supple. LYMPHATIC: There is no palpable cervical or supraclavicular adenopathy. RESPIRATORY: Inspiratory breath sounds are of diminished intensity in all sotelo. No rales, wheezes or rhonchi. CARDIOVASCULAR: Rhythm is regular. ABDOMEN: The abdomen is nondistended. No organomegaly. No tenderness. Extremities: No swelling or edema. SKIN: No jaundice or rash currently. NEUROLOGIC: general production manager II-XII are grossly intact. No focal motor weakness. LABS: Component Latest Ref Rng & Units 05/17/2022 WBC 3.70 - 11.00 k/uL 6.13 RBC 4.20 - 6.00 m/uL 4.49 Hemoglobin 13.0 - 17.0 g/dL 13.0 Hematocrit 39.0 - 51.0 % 39.9 MCV 80.0 - 100.0 fL 88.9 MCH 26.0 - 34.0 pg 29.0 MCHC 30.5 - 36.0 g/dL 32.6 RDW-CV 11.5 - 15.0 % 15.1 (H) Platelet Count 150 - 400 k/uL 150 MPV 9.0 - 12.7 fL 10.6 Neut% % 43.3 Abs Neut (ANC) 1.45 - 7.50 k/uL 2.65 Lymph% % 45.5 Abs Lymph 1.00 - 4.00 k/uL 2.79 Hays% % 8.8 Abs Hays <0.87 k/uL 0.54 Eosin% % 1.6 Abs Eosin <0.46 k/uL 0.10 Baso% % 0.3 Abs Baso <0.11 k/uL <0.03 Immature Gran % % 0.5 IMMATURE GRANS (ABS) <0.10 k/uL 0.03 NRBC /100 WBC 0.0 Absolute nRBC <0.01 k/uL <0.01 DTYPE Auto Protein, Total 6.3 - 8.0 g/dL 6.3 Albumin 3.9 - 4.9 g/dL 4.6 Calcium 8.5 - 10.2 mg/dL 9.2 Bilirubin, Total 0.2 - 1.3 mg/dL 0.3 Alkaline Phosphatase 38 - 113 U/L 94 AST 14 - 40 U/L 25 ALT 10 - 54 U/L 14 Glucose 74 - 99 mg/dL 100 (H) BUN 9 - 24 mg/dL 14 Creatinine 0.73 - 1.22 mg/dL 1.06 Sodium 136 - 144 mmol/L 136 Potassium 3.7 - 5.1 mmol/L 3.5 (L) Chloride 97 - 105 mmol/L 105 CO2 22 - 30 mmol/L 21 (L) Anion Gap 9 - 18 mmol/L 10 eGFR >=60 mL/min/1.73m 85 Component Latest Ref Rng & Units 10/14/2014 11/02/2014 07/16/2017 12/16/2018 06/19/2020 12/11/2020 07/18/2021 01/16/2022 Protein, Total 6.3 - 8.0 g/dL 6.7 6.5 6.6 6.9 6.6 6.9 7.0 6.7 Albumin 3.37 - 4.23 gm/dL 4.45 (H) 4.31 (H) 4.30 (H) 4.22 4.41 (H) 4.69 (H) 4.40 (H) 4.30 (H) Alpha 1 Globulin 0.18 - 0.31 gm/dL 0.27 0.22 0.26 0.29 0.27 0.23 0.30 0.27 Alpha 2 Globulin 0.52 - 0.97 gm/dL 0.67 0.63 0.65 0.73 0.76 0.66 0.80 0.80 Beta Globulin 0.84 - 1.36 gm/dL 0.82 (L) 0.80 (L) 0.81 (L) 0.93 0.80 (L) 0.92 1.04 0.91 Gamma Globulin 0.70 - 1.44 gm/dL 0.49 (L) 0.53 (L) 0.58 (L) 0.73 0.37 (L) 0.41 (L) 0.46 (L) 0.43 (L) Interpretation (Prot Electro) No definitive M protein is identified on protein electrophoresis. . . . No definitive M protein is identified on protein electrophoresis. . . . SEE COMMENT SEE COMMENT SEE COMMENT SEE COMMENT SEE COMMENT SEE COMMENT M-Protein Location N/A N/A N/A Gamma fraction N/A N/A N/A N/A M-Protein Concentration 0.00 gm/dL 0.00 0.00 0.00 0.11 (H) 0.00 0.00 0.00 0.00 SPE Staff Review Haja Vargas MD, MARTITA ([id number]) Reviewed by David Guo MD ([id number]) Reviewed by Yuri Rendon M.D. ([id number]) Reviewed by Michelle Fernandez MD ([id number]) Reviewed by Mario Montgomery M.D., PhD ([id number]) Reviewed by Michelle Fernandez MD ([id number]) Reviewed by Michelle Fernandez MD ([id number]) Reviewed by Michelle Fernandez MD ([id number]) MPA IgG, Serum 700 - 1,600 mg/dL 430 (L) 458 (L) 437 (L) 424 (L) 468 (L) MPA IgA, Serum 70 - 400 mg/dL 209 249 257 270 289 MPA IgM, Serum 40 - 230 mg/dL 22 (L) 22 (L) 23 (L) 24 (L) 27 (L) [place] Free, Serum 3.30 - 19.40 mg/L 9.5 11.0 12.0 12.0 13.5 Lambda Free, Serum 5.7 - 26.3 mg/L 24.6 30.5 (H) 40.9 (H) 43.4 (H) 58.2 (H) K/L Ratio, Serum 0.26 - 1.65 0.39 0.36 0.29 0.28 0.23 (L) MPA Result No M protein is identified. M protein is present. (A) M protein is present. (A) M protein is present. (A) M protein is present. (A) M protein is present. (A) Interpretation (MPA) SEE COMMENT SEE COMMENT SEE COMMENT SEE COMMENT SEE COMMENT Staff Review (MPA) Reviewed by Michelle Fernandez MD ([id number]) Reviewed by Mario Montgomery M.D., PhD ([id number]) Reviewed by Michelle Fernandez MD ([id number]) Reviewed by Michelle Fernandez MD ([id number]) Reviewed by Michelle Fernandez MD ([id number]) %IS went from 0.0133-0.0044 as of 05/17/2022. MR went from 3.88-4.36 as of 05/17/2022. PATHOLOGY: Bone marrow biopsy 01/03/2021: A Congo Red stain performed on the clot section is negative for amyloid. FINAL DIAGNOSIS BONE MARROW, ASPIRATE SMEAR AND CORE BIOPSY, WITH CLOT SECTION AND PERIPHERAL BLOOD SMEAR: - INVOLVED BY PLASMA CELL NEOPLASM WITH 5-10% PLASMA CELLS - CELLULAR BONE MARROW WITH TRILINEAGE HEMATOPOIESIS AND OCCASIONAL HYPOLOBATE MEGAKARYOCYTES. - STAINABLE IRON PRESENT. - SEE COMMENT. Comment: The patient is a 50-year-old male with a history of CML, IgA lambda monoclonal gammopathy and multiple sclerosis. The bone marrow is involved by a plasma cell neoplasm with 5-10% lambda monotypic plasma cells identified by immunohistochemistry performed on the clot section. The bone marrow also shows occasional hypolobate megakaryocytes, raising the possibility of persistent CML. 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 -Serum monoclonal protein by immunofixation only. Not quantifiable by electrophoresis. -Small increase in serum lambda. -Repeat bone marrow biopsy 01/2021 suggested some progression with areas up to 10% plasma cells. -Whole-body bone CT 02/01/2021 revealed no lytic bone lesions. Plan: -Recheck in 3-4 months. -Repeat bone marrow biopsy next spring. (C92.10) CML (chronic myeloid leukemia) (HCC) Assessment: -Diagnosis was incidental on work up for monoclonal protein--was found to have t(9;22) on cytogenetics. -There was a complete cytogenetic response at 1 year (repeat bone marrow biopsy January 2016). -Increasing transcript number on Gleevec. -Continues to tolerate Sprycel at 80 mg daily without side effect. -Was losing molecular response then found out he had been off Sprycel for at least a month in the spring 2018. -Now again taking consistently with no symptomatic side effect. -Has been on PPI intermittently for reflux symptoms. Most recent EGD showed persistent gastritis. -Repeat CT in May demonstrated normal size spleen. -Now back in MRI 4.36. Plan: -Continue Sprycel at 80 mg daily. -Repeat PCR in 6 months. Portions of this documentation were copied and pasted from previous office visit notes in order to provide a cohesive continuity of the history. The note has been reviewed and edited and updated as necessary. Otoniel Heaton DO documented in this encounter [facility] 05-21-2022 Miscellaneous Notes Addended by: JADE MORATAYA LPN on: 05/21/2022 01:19 PM Modules accepted: Orders documented in this encounter [facility] 05-21-2022 Instructions Ny Rodriguez APRN.CNP - 05/21/2022 12:03 PM EDT Continue omeprazole 40 mg daily on empty stomach and wait 30 min Continue Carafate dissolve in water TID Avoid NSAIDs (such as Advil, Ibuprofen, Excedrin, Mobic), tobacco, alcohol, carbonated beverages, caffeine, chocolate, tomato based sauces, spicy/fatty foods, and peppermint Avoid eating large meals. Avoid eating less than 3 hours before bed. Weight loss. Elevate the head of the bed 6 inches, or at least invest in a wedge pillow. Follow up after EGD documented in this encounter [facility] 05-21-2022 History of Present illness Narrative CHIEF COMPLAINT: Patient presents with: Abdominal Pain: right side states getting worse. 6:10 on pain scale. Describes it as sharp and stabbing mainly after meals. Has been taking Mylanta which seems to help symptoms The patient was seen by for upper endoscopy for follow up peptic ulcer 05/01/2021. The procedure report has been reviewed and findings as follows: Findings: The examined jejunum was normal. The examined duodenum was normal. Scattered mild inflammation characterized by erosions and erythema was found in the entire examined stomach. Biopsies were taken with a cold forceps for histology. The lower third of the esophagus was normal. Biopsies were taken with a cold forceps for histology. The middle third of the esophagus was normal. Biopsies were taken with a cold forceps for histology. FINAL DIAGNOSIS 1. Antrum, biopsy (A) - Antral mucosa with no diagnostic alterations. - No morphologic evidence of Helicobacter pylori microorganisms. 2. Distal esophagus, biopsy (B) - Squamous epithelium and inflamed cardia-type mucosa, negative for intestinal metaplasia or dysplasia. 3. Mid esophagus, biopsy (C) - Squamous epithelium with no diagnostic alteration. EGD 02/15/21: Findings: The examined jejunum was normal. The examined duodenum was normal. Localized moderate inflammation characterized by adherent blood, congestion (edema), erosions, erythema, friability and shallow ulcerations was found in the gastric antrum. Biopsies were taken with a cold forceps for histology. The gastric fundus was normal. The examined esophagus was normal. FINAL DIAGNOSIS A. Gastric antrum, biopsy - Reactive gastropathy with erosion and rare neutrophils. - No morphologic evidence of Helicobacter pylori organisms. - Negative for intestinal metaplasia, dysplasia or infiltrative lesion. HPI Otoniel Desai is a 51 year old male here today for ongoing GI concerns. Patient has history GERD and PUD induced by NSAIDs. Patient reports he is having ongoing abdominal pain in the upper abdomen. He reports today anything he eats or drinks, even water will cause aching dull pain sharp shooting pains. Patient denies heartburn, regurgitation or dysphagia. PAtient reports he is taking carafate and the PPI and still having symptoms. Most recent testing lipase normal, upper GI with small bowel follow through normal, GES normal, EGD 05/2021 gastritis - unremarkable biopsies of the antrum, distal esophagus, mid esophagus. Patient denies taking ibuprofen, he reports he does take Excedrin as needed for BEARD. Patient has a history of constipation and taking Linzess daily - Patient reports this is helping his constipation every other day. Current Outpatient Medications Medication Sig amphetamine-dextroamphetamine XR (ADDERALL XR) 30 mg 24 hr capsule Take 1 capsule by mouth once daily for 30 days. dextroamphetamine-amphetamine (ADDERALL) 10 mg tablet Take 1 tablet by mouth once daily for 30 days. In the afternoon as needed for concentration impairment HYDROcodone-acetaminophen (NORCO) 5-325 mg per tablet Take 1 tablet by mouth twice daily as needed for pain for up to 30 days. diclofenac (VOLTAREN ARTHRITIS PAIN) 1 % topical gel Apply 2 g to affected area three times daily. albuterol HFA (VENTOLIN HFA) 90 mcg/actuation inhaler INHALE 2 PUFFS INSTRUCTED EVERY FOUR HOURS NEEDED FOR WHEEZING / SHORTNESS OF BREATH dasatinib (SPRYCEL) 80 mg tablet Take 1 tablet (80mg) by mouth once daily. linaCLOtide (LINZESS) 72 mcg capsule Take first thing in the morning, 30 minutes before eating anything.Swallow whole; DO NOT crush or chew. omeprazole (PRILOSEC) 40 mg capsule Take 1 capsule by mouth once daily. oxybutynin ER (DITROPAN XL) 15 mg 24 hr Extended Rel Tab take 1 tablet by mouth once daily sucralfate (CARAFATE) 1 gram tablet Take 1 tablet by mouth three times daily. umeclidinium-vilanterol (ANORO ELLIPTA) 62.5-25 mcg/actuation inhaler Inhale 1 Inhalation as instructed once daily. atenolol (TENORMIN) 25 mg tablet Take 1 tablet by mouth once daily. gabapentin (NEURONTIN) 600 mg tablet TAKE 1 TABLET BY MOUTH THREE TIMES A DAY gemfibrozil (LOPID) 600 mg tablet Take 1 tablet by mouth twice daily. dicyclomine (BENTYL) 20 mg tablet Take 1 tablet by mouth three times daily. Cholecalciferol, Vitamin D3, (VITAMIN D-3) 50 mcg (2,000 unit) cap Take 1 capsule by mouth once daily. lactobacillus rhamnosus (CULTURELLE) 15 billion cell capsule Take 1 capsule by mouth once daily. lamoTRIgine (LAMICTAL) 200 mg tablet Take 1 tablet by mouth once daily. ARIPiprazole (ABILIFY) 5 mg tablet Take 1 tablet by mouth once daily. vilazodone (VIIBRYD) 40 mg Take 40 mg by mouth once daily. Current Facility-Administered Medications Medication Dose Route Frequency perflutren lipid microspheres 1.3 mL in NaCl (PF) 0.9% 10 mL injection (DEFINITY) INTRAVENOUS DIRECTED PRN sodium chloride 0.9 % (flush) 10 mL (BD POSIFLUSH) 10 mL INTRAVENOUS DIRECTED PRN ALLERGIES Allergen Reactions Aspirin GI Upset Penicillins Hives Pollen Itching Topamax [Topiramate] Other: See Comments Severe migraines Social History Tobacco Use Smoking status: Light Tobacco Smoker Packs/day: 1.00 Years: 30.00 Pack years: 30.00 Types: Cigarettes Smokeless tobacco: Never Used Tobacco comment: Pt has cut back to 1 cigarette daily. Vaping Use Vaping Use: Never used Substance Use Topics Alcohol use: Not Currently Drug use: No PAST MEDICAL HISTORY Diagnosis Date ADHD (attention deficit hyperactivity disorder) Arrhythmia Arthritis Bipolar 1 disorder (HCC) Dr. Easley [facility] Chronic obstructive pulmonary disease ([facility]) 04/19/2019 Chronic obstructive pulmonary disease ([facility]) CML (chronic myeloid leukemia) ([facility]) 02/13/2015 Dr. 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 Vasquez Neurologist Multiple sclerosis ([facility]) 10/2005 Dr. Mauricio Vasquez Neurologist Osteoarthritis of left knee 01/2022 Other symptoms involving abdomen and pelvis(789.9) Palpitations Schizophrenia ([facility]) Dr. Easley [facility] Snoring Substance abuse rule out 03/15/2015 Syncope Tobacco abuse PAST SURGICAL HISTORY Procedure Laterality Date BONE MARROW BIOPSY 12/2015 COLONOSCOPY FLX DX W/COLLJ SPEC WHEN PFRMD 07/22/2012 Colonoscopy repeat 3 years-requires MAC anesthesia COLONOSCOPY FLX DX W/COLLJ SPEC WHEN PFRMD 07/26/2015 Colonoscopy-pt requires MAC COLONOSCOPY SCRN NOT HIGH RISK 12/26/2020 COLONOSCOPY W/BIOPSY SINGLE/MULTIPLE 05/29/2006 repeat in 10 yrs EGD 12/26/2020 EGD 02/15/2021 ESOPHAGOGASTRODUODENOSCOPY TRANSORAL DIAGNOSTIC 02/03/2012 EGD ESOPHAGOGASTRODUODENOSCOPY TRANSORAL DIAGNOSTIC 02/07/2016 EGD ESOPHAGOGASTRODUODENOSCOPY TRANSORAL DIAGNOSTIC 05/01/2021 PAST SURGICAL HISTORY OF bladder growth- benign PAST SURGICAL HISTORY OF 2015 removal skin cancer right side neck TONSILLECTOMY HX FAMILY HISTORY Problem Relation Age of Onset Heart Mother Prostate Cancer Father at age 70 Lung Cancer Sister No Known Problems Brother Cancer Maternal Grandmother throat cancer Ischemic Heart Disease Maternal Grandmother other (brain hemorrhage) Maternal Grandmother Diabetes Maternal Grandfather Stroke Paternal Grandfather Heart Paternal Grandfather Cancer Maternal Aunt stomach Cancer Other Father's sister's son has CML REVIEW OF SYSTEMS Review of Systems Constitutional: Positive for activity change, appetite change and fatigue. Cardiovascular: Positive for palpitations. Gastrointestinal: Positive for abdominal pain. All other systems reviewed and are negative. PHYSICAL EXAM BP 120/70 Pulse 76 Wt 182 lb (82.6kg) SpO2 98% Physical Exam Constitutional: Appearance: Normal appearance. He is normal weight. HENT: Head: Normocephalic and atraumatic. Eyes: Extraocular Movements: Extraocular movements intact. Pupils: Pupils are equal, round, and reactive to light. Cardiovascular: Rate and Rhythm: Normal rate and regular rhythm. Pulses: Normal pulses. Heart sounds: Normal heart sounds. Pulmonary: Effort: Pulmonary effort is normal. Breath sounds: Normal breath sounds. Abdominal: General: Abdomen is flat. Bowel sounds are normal. Palpations: Abdomen is soft. Tenderness: There is generalized abdominal tenderness. Musculoskeletal: General: Normal range of motion. Cervical back: Normal range of motion and neck supple. Skin: General: Skin is warm and dry. Neurological: General: No focal deficit present. Mental Status: He is alert and oriented to person, place, and time. Psychiatric: Mood and Affect: Mood normal. Behavior: Behavior normal. ASSESSMENT: Gastroesophageal reflux disease without esophagitis (primary encounter diagnosis) History of peptic ulcer disease Pain of upper abdomen PLAN: Assessment/Plan (K21.9) Gastroesophageal reflux disease without esophagitis (primary encounter diagnosis) (Z87.11) History of peptic ulcer disease (R10.10) Pain of upper abdomen Patient has history GERD and PUD induced by NSAIDs. Patient reports he is having ongoing abdominal pain in the upper abdomen. He reports today anything he eats or drinks, even water will cause aching dull pain sharp shooting pains. Patient denies heartburn, regurgitation or dysphagia. PAtient reports he is taking carafate and the PPI and still having symptoms. Most recent testing lipase normal, upper GI with small bowel follow through normal, GES normal, EGD 05/2021 gastritis - unremarkable biopsies of the antrum, distal esophagus, mid esophagus. Recommended repeat EGD d/t ongoing upper GI concerns at this time. Continue omeprazole 40mg once daily and carafate dissolved in water TID. Follow up after EGD 1. Gastroesophageal reflux disease without esophagitis - EGD DIAGNOSTIC; Future 2. History of peptic ulcer disease - EGD DIAGNOSTIC; Future 3. Pain of upper abdomen - EGD DIAGNOSTIC; Future Follow up in office 3 months/PRN. Recommended to please call office/go to ER if fever, chills, chest pain, SOB, diarrhea, nausea, emesis, worsening abdominal pain, dehydration occurs I spent a total of 30 minutes on the date of the service which included preparing to see the patient, [id number] patient care, completing clinical documentation, obtaining and/or reviewing separately obtained history, performing a medically appropriate examination, counseling and educating the patient/family/caregiver, ordering medications, tests, or procedures, communicating with other HCPs (not separately reported), independently interpreting results (not separately reported), communicating results to the patient/family/caregiver, and care coordination (not separately reported). Ny Rodriguez APRN.CNP DATE: 05/21/22 TIME: 8:44 AM documented in this encounter [facility] 05-17-2022 History of Present illness Narrative Radiology Service Progress Note PATIENT NAME: Otoniel Desai DATE OF SERVICE: May 17, 2022 TIME: 1:58 PM PATIENT IDENTITY VERIFICATION COMPLETED USING TWO (2) IDENTIFIERS: Name and Date of confirmed by patient verbally. FALL SCREENING: Has the patient had 2 falls in the last year or 1 fall with injury or currently using an Ambulatory Assistive Device (Walker, Cane, Wheelchair, Crutches, etc.)? No PATIENT GENDER DATA: Male PATIENT RELEVANT IMPLANT DATA REVIEWED: Not Applicable RADIOLOGY DEPARTMENT: General X-ray: Exam(s) Completed: Chest X-Ray PERIPHERAL IV DATA: Not applicable SIGNED BY: RT Eugenio(R) May 17, 2022 1:58 PM documented in this encounter [facility] 05-16-2022 Miscellaneous Notes Patient is scheduled in [place] for 06/10 Pt. informed would rather see a Neurologist in [facility] but not in [place]. Velvet Alcantar LPN Please inform patient that overall his carotid artery US is normal/ Also his CT of the neck soft tissue is also overall normal. I think his symptoms are likely coming from neck / cervical spine DDD and DJD arthritis changes and potentially from other neurologic conditions such as his MS. Would recommend follow up with Neurologist Noman Dean DO documented in this encounter [facility] 05-16-2022 Miscellaneous Notes Pt added to schedule for today. Aneta Vargas Okay. Otoniel Heaton DO Pt missed his lab/xray apt today, pt would like to come tomorrow at 10:45. Diana Henriquez LPN documented in this encounter [facility] 05-15-2022 Miscellaneous Notes documented in this encounter [facility] 05-14-2022 History of Present illness Narrative Radiology Service Progress Note PATIENT NAME: Otoniel Desai DATE OF SERVICE: May 14, 2022 TIME: 9:07 AM PATIENT IDENTITY VERIFICATION COMPLETED USING TWO (2) IDENTIFIERS: Name and Date of confirmed by patient verbally. FALL SCREENING: Has the patient had 2 falls in the last year or 1 fall with injury or currently using an Ambulatory Assistive Device (Walker, Cane, Wheelchair, Crutches, etc.)? No PATIENT GENDER DATA: Male PATIENT RELEVANT IMPLANT DATA REVIEWED: Not Applicable RADIOLOGY DEPARTMENT: CT; Exam(s) Completed: Neck PERIPHERAL IV DATA: Not applicable SIGNED BY: RT Mike(R) May 14, 2022 9:07 AM documented in this encounter [facility] 05-13-2022 History of Present illness Narrative CC: Otoniel Desai is a 51 year old male who presents to the office for follow up HPI: Seen in office on 01/22/22 About 2-3 weeks ago, he states that he states that he tripped and caught himself with his left knee against an edge of a steel object on front of the knee and after that has had some discomfort. Worse with movement/walking, feels that he is feeling a grinding under my knee cap , symptoms come and go. No locking or giving out. Feels like there is some swelling present there B/l elbow pain, started as left elbow pain about 2-3 months ago, now right elbow is bothering him. Has been using a left elbow tennis band with some benefit. No known injuries or overuse activities. Hasn't take any medications for this Stomach upset symptoms and GERD, long standing, seems to be worse over the last year. Has had gastric emptying study which is normal. has had EGD in the last 6-9 months. Has increased prilosec to 40 mg a day, has seen Gastroenterogy and saw Ny Rodriguez and Dr. Lee, restarted Prilosec on 2020 due to these symptoms. Hasn't started the carafate medication, which is the newest recommendations by Ny. No obvious new blood in stool or vomiting. ADHD, stable, taking adderall. Chronic b/l leg pain and MS, taking Larose as prescribed, tolerating well. Helps with ADLs and IADLs with dressing, bathing, gait, daily functioning. No new SE with medication at last OFFICE VISIT on 02/13/22 Left knee pain, still present after his trip/fall against left knee about 6 weeks ago. Did have xray completed after last OFFICE VISIT which showed OA changes in knee and some swelling over patella, no fracture. Has been trying to rest and ice knee, still bothering him to walk due to joint pain. Asking for option to try. B/l elbow pain left >right, has been using tennis elbow brace/band on forearm with some relief. NSAID and icing, still causing discomfort with arm/hand use. Right leg sore spot and discomfort, mild local swelling, no known injury or recent travel, no drainage or fevers or chills. Not using anything on the area. Chest pressure, off and on, sometimes with rest and sometimes with exertion, no symptoms today, present x weeks/months, no dyspnea or dizziness/Lh or palpitations that are new. Occasional right neck pain, no injuries or fevers or chills. Currently ADHD, taking adderall XR in the morning. Sometimes feels his symptoms aren't well enough controlled in the afternoon/evening. Wondering if dose adjustment can be made. Denies any SE from medication. Chronic b/l leg pain and MS, taking Larose as prescribed, tolerating well. Helps with ADLs and IADLs with dressing, bathing, gait, daily functioning. No new SE with medication Fullness and discomfort feeling in his neck, right sided and sharp shooting pain, lasting typically minutes, intermittent, states has been occurring x months, no fevers or chills. 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 Has had a neck MRI in the last 6-12 months which showed some DDD and DJD cervical spine, has been off his MS medications per Neurologist guidance since July 2021. Continues to have weakness and tingling and pain into arms, difficulty with commissary assistant strength of hands etc. No recent injuries or whiplash etc. Continued abdominal discomfort, GI upset, GERD symptoms, has been seeing Gastro LALO Alejandra and had an Upper GI and Small bowel series that was normal. Last EGD 01/2021. No known blood in stool. Is taking the prilosec consistently and trying to follow low acid diet and symptoms are persisting. Spontaneous bruising, no associated injury, increased the last few months. Taking vitamin D supplements. Arms and legs PAST MEDICAL HISTORY Diagnosis Date ADHD (attention deficit hyperactivity disorder) Arrhythmia Arthritis Bipolar 1 disorder ([facility]) Dr. Easley [facility] Chronic obstructive pulmonary disease ([facility]) 04/19/2019 Chronic obstructive pulmonary disease ([facility]) CML (chronic myeloid leukemia) ([facility]) 02/13/2015 Dr. 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 Vasquez Neurologist Multiple sclerosis ([facility]) 10/2005 Dr. Mauricio Vasquez Neurologist Osteoarthritis of left knee 01/2022 Other symptoms involving abdomen and pelvis(789.9) Palpitations Schizophrenia ([facility]) Dr. Easley [facility] Snoring Substance abuse rule out 03/15/2015 Syncope Tobacco abuse PAST SURGICAL HISTORY Procedure Laterality Date BONE MARROW BIOPSY 12/2015 COLONOSCOPY FLX DX W/COLLJ SPEC WHEN PFRMD 07/22/2012 Colonoscopy repeat 3 years-requires MAC anesthesia COLONOSCOPY FLX DX W/COLLJ SPEC WHEN PFRMD 07/26/2015 Colonoscopy-pt requires MAC COLONOSCOPY SCRN NOT HIGH RISK 12/26/2020 COLONOSCOPY W/BIOPSY SINGLE/MULTIPLE 05/29/2006 repeat in 10 yrs EGD 12/26/2020 EGD 02/15/2021 ESOPHAGOGASTRODUODENOSCOPY TRANSORAL DIAGNOSTIC 02/03/2012 EGD ESOPHAGOGASTRODUODENOSCOPY TRANSORAL DIAGNOSTIC 02/07/2016 EGD ESOPHAGOGASTRODUODENOSCOPY TRANSORAL DIAGNOSTIC 05/01/2021 PAST SURGICAL HISTORY OF bladder growth- benign PAST SURGICAL HISTORY OF 2015 removal skin cancer right side neck TONSILLECTOMY HX Current Outpatient Medications Medication Sig HYDROcodone-acetaminophen (NORCO) 5-325 mg per tablet Take 1 tablet by mouth twice daily as needed for pain for up to 30 days. diclofenac (VOLTAREN ARTHRITIS PAIN) 1 % topical gel Apply 2 g to affected area three times daily. amphetamine-dextroamphetamine XR (ADDERALL XR) 30 mg 24 hr capsule Take 1 capsule by mouth once daily for 30 days. albuterol HFA (VENTOLIN HFA) 90 mcg/actuation inhaler INHALE 2 PUFFS INSTRUCTED EVERY FOUR HOURS NEEDED FOR WHEEZING / SHORTNESS OF BREATH dasatinib (SPRYCEL) 80 mg tablet Take 1 tablet (80mg) by mouth once daily. linaCLOtide (LINZESS) 72 mcg capsule Take first thing in the morning, 30 minutes before eating anything.Swallow whole; DO NOT crush or chew. omeprazole (PRILOSEC) 40 mg capsule Take 1 capsule by mouth once daily. ergocalciferol 50,000 unit capsule (VITAMIN D2, DRISDOL) Take 1 capsule by mouth one time a week. oxybutynin ER (DITROPAN XL) 15 mg 24 hr Extended Rel Tab take 1 tablet by mouth once daily sucralfate (CARAFATE) 1 gram tablet Take 1 tablet by mouth three times daily. umeclidinium-vilanterol (ANORO ELLIPTA) 62.5-25 mcg/actuation inhaler Inhale 1 Inhalation as instructed once daily. atenolol (TENORMIN) 25 mg tablet Take 1 tablet by mouth once daily. gabapentin (NEURONTIN) 600 mg tablet TAKE 1 TABLET BY MOUTH THREE TIMES A DAY gemfibrozil (LOPID) 600 mg tablet Take 1 tablet by mouth twice daily. dicyclomine (BENTYL) 20 mg tablet Take 1 tablet by mouth three times daily. Cholecalciferol, Vitamin D3, (VITAMIN D-3) 50 mcg (2,000 unit) cap Take 1 capsule by mouth once daily. lactobacillus rhamnosus (CULTURELLE) 15 billion cell capsule Take 1 capsule by mouth once daily. lamoTRIgine (LAMICTAL) 200 mg tablet Take 1 tablet by mouth once daily. ARIPiprazole (ABILIFY) 5 mg tablet Take 1 tablet by mouth once daily. vilazodone (VIIBRYD) 40 mg Take 40 mg by mouth once daily. dextroamphetamine-amphetamine (ADDERALL) 10 mg tablet Take 1 tablet by mouth once daily for 30 days. In the afternoon as needed for concentration impairment Current Facility-Administered Medications Medication Dose Route Frequency perflutren lipid microspheres 1.3 mL in NaCl (PF) 0.9% 10 mL injection (DEFINITY) INTRAVENOUS DIRECTED PRN sodium chloride 0.9 % (flush) 10 mL (BD POSIFLUSH) 10 mL INTRAVENOUS DIRECTED PRN ALLERGIES Allergen Reactions Aspirin GI Upset Penicillins Hives Pollen Itching Topamax [Topiramate] Other: See Comments Severe migraines Social History Tobacco Use Smoking status: Light Tobacco Smoker Packs/day: 1.00 Years: 30.00 Pack years: 30.00 Types: Cigarettes Smokeless tobacco: Never Used Tobacco comment: Pt has cut back to 1 cigarette daily. Vaping Use Vaping Use: Never used Substance Use Topics Alcohol use: Not Currently Drug use: No ROS: See HPI PE: BP 130/70 Pulse 80 Temp (Src) 98.4 (Left Tympanic) Resp 16 Wt 179 lb (81.2kg) Gen: A&OX3, NAD, non-toxic appearing HEENT: PERRLA, EOMs intact b/l, nares without drainage, pharynx without erythema, exudate, lesions, or drainage. Uvula midline. Neck: mild fullness in anterior inferior neck and supraclavicular area with associated discomfort, no obvious thyromegaly, no meningismus. ? Right carotid bruit present, no pain with swallowing CV: RRR, no murmur Lungs: CTA b/l, no wheezing Skin: No rashes, lesions, or wounds on exposed skin. Scattered bruises present right and left arms, right and left thighs. Gait is slowed Weakness of hand commissary assistant b/l, weakness of biceps strength Wearing glasses Reduced ROM cervical spine PDMP website checked and validated. All prescriptions have been APPROPRIATELY filled. No suspicious activity was identified. 05/13/2022 by Noman Dean DO ASSESSMENT/PLAN: 1. Spontaneous bruising - ICD9: 782.7, ICD10: R23.3 (primary diagnosis) - recheck labs, f/u with Sewing Room Supervisor / Oncologist as scheduled, unsure the cause. - CBC + DIFF - COMP METABOLIC PANEL - VITAMIN C - VITAMIN B12 BLOOD - CT NECK SOFT TISSUE WO IVCON 2. Bilateral leg pain - ICD9: 729.5, ICD10: M79.604, M79.605 - rx refilled, chronic leg pain, likely secondary to MS, all other work up has been normal - CBC + DIFF - COMP METABOLIC PANEL - HYDROCODONE 5 MG-ACETAMINOPHEN 325 MG TABLET 3. Multiple sclerosis (HCC) - ICD9: 340, ICD10: G35 - rx refilled, chronic leg pain, likely secondary to MS, all other work up has been normal. F/u with Neurologist. - CBC + DIFF - COMP METABOLIC PANEL - US CAROTID ARTERIES APRIL VAS LAB - CT NECK SOFT TISSUE WO IVCON - HYDROCODONE 5 MG-ACETAMINOPHEN 325 MG TABLET 4. Vitamin D deficiency - ICD9: 268.9, ICD10: E55.9 - recheck labs - VITAMIN D 25 HYDROXY - VITAMIN B12 BLOOD 5. Fatigue, unspecified type - ICD9: 780.79, ICD10: R53.83 - recheck labs - CBC + DIFF - COMP METABOLIC PANEL - VITAMIN C - VITAMIN B12 BLOOD - US CAROTID ARTERIES APRIL VAS LAB - CT NECK SOFT TISSUE WO IVCON 6. Cervicalgia - ICD9: 723.1, ICD10: M54.2 - unsure if symptoms are related to cervical spine DDD and DDD vs. Mass vs. CML or his MS. Will need testing as ordered and follow up with specialist if not improved. - US CAROTID ARTERIES APRIL VAS LAB - CT NECK SOFT TISSUE WO IVCON 7. CML (chronic myeloid leukemia) ([facility]) - ICD9: 205.10, ICD10: C92.10 - unsure if symptoms of anterior neck pain are related to cervical spine DDD and DDD vs. Mass vs. CML or his MS. Will need testing as ordered and follow up with specialist if not improved. - US CAROTID ARTERIES APRIL VAS LAB - CT NECK SOFT TISSUE WO IVCON 8. PAD (peripheral artery disease) ([facility]) - ICD9: 443.9, ICD10: I73.9 - US CAROTID ARTERIES APR[facility] VAS LAB 9. Bruit of right carotid artery - ICD9: 785.9, ICD10: R09.89 - US CAROTID ARTERIES APRIL VAS LAB 10. Attention deficit disorder, unspecified hyperactivity presence - ICD9: 314.00, ICD10: F98.8 Adjust medication to add a short acting prn medication in the afternoon. - DEXTROAMPHETAMINE-AMPHETAMINE 10 MG TABLET Noman Dean DO Return if no improvement. Follow up with Noman Dean DO. To ER if develops chest pain, shortness of breath Discussed risks, benefits, alternatives, and potential side effects of medications. Patient/Guardian expressed understanding and agreed with the plan. See patient instructions. Noman Dean DO [address] [place] [address] documented in this encounter [facility] 05-13-2022 Instructions Noman Dean DO - 05/13/2022 1:57 PM EDT ? Need for another upper endoscopy (EGD) documented in this encounter [facility] 05-06-2022 Miscellaneous Notes Left message to call back to schedule appt. We didn't address this concern when he was seen in the office in January, would need an appt with a provider to further evaluate / discuss Noman Dean DO Pt called in and reports he had told the provider about this same issue at his last office visit, but has increased in frequency. He states on the right side of his head from his ear down to below his chin he will get a sharp throbbing pain and it makes it hard to move his neck. He was asking if the provider wanted him to get any imaging done. Please call and advise. documented in this encounter [facility] 05-06-2022 Miscellaneous Notes RX INSTRUCTIONS: Patient aware RX will be sent to pharmacy. No need to notify patient. Last OV: 02/13/22 VV with PCP Last refill: 03/13/22 With 100g and 0 refills Last oarrs report completed: N/A PLEASE REVIEW ON EPIC Follow up: 05/13/22-3 Month F/U with PCP Jodee Plata MA documented in this encounter [facility] 04-08-2022 History of Present illness Narrative [facility] Refill Assessment Reviewed last OV note on 07/18/21. Last labs 01/16/22 Next clinic visit scheduled 05/22/22. Medication(s): Sprycel Therapy continues to be appropriate for disease, patient response, and medical condition. Verification of therapeutic benefit and effectiveness with current therapy. Adverse events, barriers in adherence, and side effects assessed and addressed. Will proceed with refill with no changes. [facility] Visit Assessment - Hematology/Oncology: Assessment to use: Refill Non-Clinical Assessment: Patient confirmed: Yes Med/dose confirmed: Yes Supplies needed: No Missed doses: No Estimated days supply on hand: 6 Copay amount: 0 Payment confirmed: Yes Address confirmed: Yes Delivery method: FedEx Delivery address: [address] [place] [address] [place] [address] Delivery date: 04/10/2022 Patient has questions: No Vaccination Assessment: Date of influenza vaccination reminder: 08/01/2021 Date of most recent vaccination assessment: 08/01/2021 Refill Assessment: Lab monitoring inclusive of CBC, Chem-7, and other labs as pertinent for therapy: Yes Chemo cycle timing assessment: N/A Screening for infection: Yes Adverse reactions and mitigation: Yes Medication changes and interaction assessment: Yes Assessment of injection issues: N/A Additional Assessment: Assessment of continued need for prophylactic medications at regular intervals: Yes Radiology procedure timing to assess for disease progression: Yes Scheduled future appointments: Yes Mery Liu Thank you, Andrey Wolf, PharmD, BCPS, CSP, MSCS Clinical Pharmacist [facility] P: ; F: documented in this encounter [facility] 04-08-2022 History of Present illness Narrative RADIOLOGY SERVICE PROGRESS NOTE SERVICE DATE: 04/08/2022 SERVICE TIME: 0845 PATIENT IDENTITY VERIFICATION COMPLETED USING TWO (2) METHODS: Patient confirmed name and Date of verbally. ALLERGIES REVIEWED: RK MEDICATIONS REVIEWED BY: KOMAL PROCEDURE TYPE: NM STRESS: 0.4 mg of Lexiscan was administered IV at 0848 over 10 Seconds by Mindy Harrell RN Reversal agent used:NA LOT [id number] EXP 01/29/2025 IV SITE: IV palced by nuclear tecnologist POST EXAM PIV STATUS: Discontinued by Shredder/Granulator Operator PATIENT DISCHARGED TO: Nuclear Medicine Department for post stress imaging A Diagnostic radioactive procedure has taken place, with no further precautions necessary other than routine body substance precautions. More information regarding radiation safety can be found using this link: [email or web address] SIGNATURE: MINDY HARRELL RN PATIENT NAME: Otoniel Desai DATE: 04/08/22 TIME: 10:41 AM documented in this encounter [facility] 04-08-2022 History of Present illness Narrative RADIOLOGY SERVICE PROGRESS NOTE SERVICE DATE: 04/08/2022 SERVICE TIME: 07:32 AM PATIENT IDENTITY VERIFICATION COMPLETED USING TWO (2) STANDARD IDENTIFIERS: Name and Date of confirmed by patient verbally FALL SCREENING: Has the patient had 2 falls in the last year or 1 fall with injury or currently using an Ambulatory Assistive Device (Walker, Cane, Wheelchair, Crutches, etc.)? No PATIENT GENDER DATA: .male ALLERGIES: Reviewed and unchanged MEDICATIONS REVIEWED: No PATIENT RELEVANT IMPLANT DATA REVIEWED: Not Applicable CREATININE: Creatinine Date Value Ref Range Status 01/16/2022 1.02 0.73 - 1.22 mg/dL Final 10/17/2021 0.90 0.73 - 1.22 mg/dL Final 07/18/2021 0.93 0.73 - 1.22 mg/dL Final eGFR-All Other Races Date Value Ref Range Status 01/16/2022 >60 . Final Comment: eGFR (Estimated GFR) Units of measure: mL/min/1.73 meters squared eGFR is derived from the reexpressed MDRD Study equation using the following parameters: serum creatinine, age, gender and race. The creatinine assay has been calibrated to be traceable to IDMS. An eGFR <60 mL/min/1.73m2 for >3 months is consistent with chronic kidney disease. Refer to KDOQI guidelines for clinical interpretation. In patients with unstable renal function, e.g. those with acute kidney injury, the eGFR may not accurately reflect actual GFR. Note: On 01/26/2022, the eGFR calculation will be updated to the NKF-ASN Task Force recommended 2020 CKD-EPI creatinine equation which does not include a race variable. For more information or to access a 2020 CKD-EPI calculator, visit the National Kidney [employer] website at kidney.org/professionals/kdoqi/gfr _calculator. eGFR- Date Value Ref Range Status 01/16/2022 >60 Final P.O.C.T. RESULTS: N/A April 08, [address] PERFORMED: No IV SITE: Ambulatory: A peripheral IV was started in the Right antecubital site with a Angio cath: 22 gauge. POST EXAM PIV STATUS: Discontinued PROCEDURE TYPE: NM Stress: 12.2mCi [id number] was administered IV for Rest Imaging at 07:40 by miguel Brunson. 33.2 mCi [id number] was administered IV for Stress Imaging at 08:48 by miguel Brunson. ADMINISTRATION TIME: PATIENT DISCHARGED TO: Ambulatory patient, left NM department area. A Diagnostic radioactive procedure has taken place, with no further precautions necessary other than routine body substance precautions. More information regarding radiation safety can be found using this link: [email or web address] %[email or web address] SIGNATURE: RT Nannette(Colten) PATIENT NAME: Otoniel Desai DATE: April 08, 2022 TIME: 09:45 AM PAGER/CONTACT #: documented in this encounter [facility] 04-04-2022 History of Present illness Narrative PT ASSESSMENT - CASTING ROOM Otoniel presents for Application of brace. Applied Laura and Price modabber wrist braces to Bilateral wrist. Patient tolerated well. Patient has been instructed in Care and proper application of brace. Patient verbalized understanding. Vashti Heller Ma Associated Order(s): Additional Injections: L elbow joint Jersey Cole MD Department of Orthopaedics Orthopaedics [address] [facility] [address] Dept: [phone] Dept April 04, [address] Jermaine DO for an opinion regarding left>right elbow pain. My final recommendations will be communicated back to the requesting physician by way of shared Medical record or letter to requesting physician via [place] mail. CHIEF COMPLAINT: New and Pain of the Left Elbow and New and Pain of the Right Elbow HPI Patient here today for bilateral elbow pain x 2 months, L>R. He is right hand dominant, does not work outside the home. He does wear tennis elbow straps bilaterally and he reports those do help him. ASSESSMENT: M25.521, M25.522 Bilateral elbow joint pain M77.11, M77.12 Lateral epicondylitis of both elbows PLAN: Discussed stretching, icing, bracing, medicine and possible cortisone injection. He would like an injection today. FOLLOW UP INSTRUCTIONS: As needed Mr. Otoniel Desai was advised as to contrast therapies and/or to take analgesics/anti-inflammatories as needed and all contraindications were reviewed. OBJECTIVE: Mr. Otoniel Desai is a pleasant 51 year old in no apparent distress. Gen:There were no vitals taken for this visit. nl development, non obese, no deformities ENT: Normocephalic, normal hearing, moist mucosa CV: Pulses:Radial= 2+ and symmetric, capillary refill < 2 secs, no peripheral edema/varicosities Skin: no rash, bruising or lesions. Good turgor. Psych: cooperative and appropriate, alert and oriented x 3, good mood and affect. Musculoskeletal: Tender to palpation over the lateral epicondyle, left greater than right. Pain on resisted elbow, wrist and middle finger extension. Additional Injections: L elbow joint for lateral epicondylitis Informed Consent Consent Obtained: Verbal [place] Protocol A moment to CARE was completed. SIGN IN Personnel directly involved with the procedure wore the appropriate PPE. Special Equipment: N/A Patient/Surrogate Stated/Verified: Patient name, Date of , Relevant allergies and Intended procedure TIME OUT Intended patient and procedure match the source document(s). Consent documented and matches the intended procedure. Relevant labs, photos, and/or imaging studies have been reviewed. Correct side/site marked and visible. Medications required for procedure verified. No fire risk assessment and interventions applicable. No implant(s) inserted. 04/04/2022 10:02 AM The procedure site was prepped in the usual sterile fashion. Medications: 3 mg betamethasone acetate-betamethasone sodium phosphate 6 mg/mL Anesthetics: 0.5 mL lidocaine (PF) 10 mg/mL (1 %) Outcome: tolerated well, no immediate complications Post-injection instructions were reviewed with the patient and the patient voiced understanding of these instructions. SIGN OUT No specimen collected. All instruments, equipment, possible retained foreign bodies accounted for. Post-procedure follow-up management communicated and Plan of Care Visit completed when applicable IMAGING: IMPRESSION: Radiographic findings present which can be seen in association with olecranon bursitis. Pressroom Worker: YOBANY Transcribe Date/Time: Apr 02 2022 6:04P Dictated by : SALLY SOTO MD This examination was interpreted and the report reviewed and electronically signed by: SALLY SOTO MD on Apr 02 2022 6:05PM EST Results-Findings * * *Final Report* * * DATE OF EXAM: Apr 02 2022 2:17PM [id number] [id number] - XR ELBOW 2V AP/LAT LT / PROCEDURE REASON: multiple diagnoses * * * * Physician Interpretation * * * * EXAMINATION: XR ELBOW 2V AP/LAT LT HISTORY: Left radial sided elbow pain x 3 months without injury. TECHNIQUE: XR ELBOW 2V AP/LAT LT Laterality: LEFT Number of different views (projections): 2 M: XB_1 COMPARISON: There are no prior relevant examinations available for comparison within the [facility]. RESULT: 2 Views of the left Elbow show no acute osseous or articular process. Joint spaces are preserved and there is no abnormal joint fluid. There is very subtle soft tissue swelling at the olecranon process which can be seen in olecranon bursitis. Supporting Subjective Information Below: Past Medical History: PAST MEDICAL HISTORY Diagnosis Date ADHD (attention deficit hyperactivity disorder) Arrhythmia Arthritis Bipolar 1 disorder ([facility]) Dr. Easley [facility] Chronic obstructive pulmonary disease ([facility]) 04/19/2019 Chronic obstructive pulmonary disease ([facility]) CML (chronic myeloid leukemia) ([facility]) 02/13/2015 Dr. 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 Vasquez Neurologist Multiple sclerosis ([facility]) 10/2005 Dr. Mauricio Vasquez Neurologist Osteoarthritis of left knee 01/2022 Other symptoms involving abdomen and pelvis(789.9) Palpitations Schizophrenia ([facility]) Dr. Easley [facility] Snoring Substance abuse rule out 03/15/2015 Syncope Tobacco abuse Past Surgical History: PAST SURGICAL HISTORY Procedure Laterality Date BONE MARROW BIOPSY 12/2015 COLONOSCOPY FLX DX W/COLLJ SPEC WHEN PFRMD 07/22/2012 Colonoscopy repeat 3 years-requires MAC anesthesia COLONOSCOPY FLX DX W/COLLJ SPEC WHEN PFRMD 07/26/2015 Colonoscopy-pt requires MAC COLONOSCOPY SCRN NOT HIGH RISK 12/26/2020 COLONOSCOPY W/BIOPSY SINGLE/MULTIPLE 05/29/2006 repeat in 10 yrs EGD 12/26/2020 EGD 02/15/2021 ESOPHAGOGASTRODUODENOSCOPY TRANSORAL DIAGNOSTIC 02/03/2012 EGD ESOPHAGOGASTRODUODENOSCOPY TRANSORAL DIAGNOSTIC 02/07/2016 EGD ESOPHAGOGASTRODUODENOSCOPY TRANSORAL DIAGNOSTIC 05/01/2021 PAST SURGICAL HISTORY OF bladder growth- benign PAST SURGICAL HISTORY OF 2015 removal skin cancer right side neck TONSILLECTOMY HX Family History: FAMILY HISTORY Problem Relation Age of Onset Heart Mother Prostate Cancer Father at age 70 Lung Cancer Sister No Known Problems Brother Cancer Maternal Grandmother throat cancer Ischemic Heart Disease Maternal Grandmother other (brain hemorrhage) Maternal Grandmother Diabetes Maternal Grandfather Stroke Paternal Grandfather Heart Paternal Grandfather Cancer Maternal Aunt stomach Cancer Other Father's sister's son has CML Social History: Social History Tobacco Use Smoking status: Light Tobacco Smoker Packs/day: 1.00 Years: 30.00 Pack years: 30.00 Types: Cigarettes Smokeless tobacco: Never Used Tobacco comment: Pt has cut back to 1 cigarette daily. Vaping Use Vaping Use: Never used Substance Use Topics Alcohol use: Not Currently Drug use: No Medications: Current Outpatient Medications Medication Sig HYDROcodone-acetaminophen (NORCO) 5-325 mg per tablet Take 1 tablet by mouth twice daily as needed for pain for up to 30 days. amphetamine-dextroamphetamine XR (ADDERALL XR) 30 mg 24 hr capsule Take 1 capsule by mouth once daily for 30 days. diclofenac (VOLTAREN ARTHRITIS PAIN) 1 % topical gel Apply 2 g to affected area three times daily. linaCLOtide (LINZESS) 72 mcg capsule Take first thing in the morning, 30 minutes before eating anything.Swallow whole; DO NOT crush or chew. omeprazole (PRILOSEC) 40 mg capsule Take 1 capsule by mouth once daily. oxybutynin ER (DITROPAN XL) 15 mg 24 hr Extended Rel Tab take 1 tablet by mouth once daily sucralfate (CARAFATE) 1 gram tablet Take 1 tablet by mouth three times daily. dasatinib (SPRYCEL) 80 mg tablet Take 1 tablet (80mg) by mouth once daily. umeclidinium-vilanterol (ANORO ELLIPTA) 62.5-25 mcg/actuation inhaler Inhale 1 Inhalation as instructed once daily. atenolol (TENORMIN) 25 mg tablet Take 1 tablet by mouth once daily. albuterol HFA (VENTOLIN HFA) 90 mcg/actuation inhaler INHALE 2 PUFFS INSTRUCTED EVERY FOUR HOURS NEEDED FOR WHEEZING / SHORTNESS OF BREATH gabapentin (NEURONTIN) 600 mg tablet TAKE 1 TABLET BY MOUTH THREE TIMES A DAY gemfibrozil (LOPID) 600 mg tablet Take 1 tablet by mouth twice daily. dicyclomine (BENTYL) 20 mg tablet Take 1 tablet by mouth three times daily. Cholecalciferol, Vitamin D3, (VITAMIN D-3) 50 mcg (2,000 unit) cap Take 1 capsule by mouth once daily. lactobacillus rhamnosus (CULTURELLE) 15 billion cell capsule Take 1 capsule by mouth once daily. lamoTRIgine (LAMICTAL) 200 mg tablet Take 1 tablet by mouth once daily. ARIPiprazole (ABILIFY) 5 mg tablet Take 1 tablet by mouth once daily. vilazodone (VIIBRYD) 40 mg Take 40 mg by mouth once daily. ergocalciferol 50,000 unit capsule (VITAMIN D2, DRISDOL) Take 1 capsule by mouth one time a week. Current Facility-Administered Medications Medication Dose Route Frequency perflutren lipid microspheres 1.3 mL in NaCl (PF) 0.9% 10 mL injection (DEFINITY) INTRAVENOUS DIRECTED PRN sodium chloride 0.9 % (flush) 10 mL (BD POSIFLUSH) 10 mL INTRAVENOUS DIRECTED PRN Allergies: Aspirin, Penicillins, Pollen, and Topamax [Topiramate] ROS: General (negative for fatigue, malaise, weight loss/gain) HEENT (negative for headache, earache, recent vision changes, sinus pain, sore throat) Respiratory (no recent shortness of breath, hemoptysis) CV (negative for chest tightness, palpitations) Musculoskeletal (see HPI) Psych (no depression, anxiety) REFERRING PHYSICIAN: Mr. Otoniel Desai was referred to me for consultation by the following physician. This consultation note will be sent to the following physician by either mail or electronic medical record. Noman Dean [address] [facility] [address] Noman Dean DO [address] [facility] [address] Jersey Cole MD documented in this encounter [facility] 04-02-2022 History of Present illness Narrative Radiology Service Progress Note PATIENT NAME: Otoniel Desai DATE OF SERVICE: April 02, 2022 TIME: 2:08 PM PATIENT IDENTITY VERIFICATION COMPLETED USING TWO (2) IDENTIFIERS: Name and Date of confirmed by patient verbally. FALL SCREENING: Has the patient had 2 falls in the last year or 1 fall with injury or currently using an Ambulatory Assistive Device (Walker, Cane, Wheelchair, Crutches, etc.)? No PATIENT GENDER DATA: Male PATIENT RELEVANT IMPLANT DATA REVIEWED: Yes RADIOLOGY DEPARTMENT: General X-ray: Exam(s) Completed: Upper Extremity X-Ray(s): Elbow, bilateral PERIPHERAL IV DATA: Not applicable SIGNED BY: RT Zion(R) April 02, 2022 2:08 PM documented in this encounter [facility] 03-15-2022 Miscellaneous Notes The following approved medication requests have been transmitted electronically. Signed Prescriptions Disp Refills HYDROcodone-acetaminophen (NORCO) 5-325 mg per tablet 60 tablet 0 Sig: Take 1 tablet by mouth twice daily as needed for pain for up to 30 days. MARCIO Class: C-II COLE: No Authorizing Provider: EDGAR LONGORIA amphetamine-dextroamphetamine XR (ADDERALL XR) 30 mg 24 hr capsule 30 capsule 0 Sig: Take 1 capsule by mouth once daily for 30 days. MARCIO Class: C-II COLE: No Authorizing Provider: EDGAR LONGORIA APRN.[facility] checked and validated. All prescriptions have been APPROPRIATELY filled. No suspicious activity was identified. 03/15/2022 by Edgar Longoria CNP. Patient has been identified by name and date of : Yes Patient phones for refill(s): Pending Prescriptions Disp Refills HYDROCODONE 5 MG-ACETAMINOPHEN 325 MG TABLET 60 tablet 0 Sig: Take 1 tablet by mouth twice daily as needed for pain for up to 30 days. MARCIO Class: C-II COLE: No DEXTROAMPHETAMINE-AMPHETAMINE ER 30 MG 24HR CAPSULE,EXTEND RELEASE 30 capsule 0 Sig: Take 1 capsule by mouth once daily for 30 days. MARCIO Class: C-II COLE: No Date of last office visit in primary care: 02/13/2022, has appt 05/13/2022 Last 2 Encounter Wt Readings: Date: Wt: 02/13/2022 81.2 kg (179 lb) 02/04/2022 83 kg (183 lb) Previous labs/tests for medication: Not applicable Please advise. Thank you. Sally Garcia LPN documented in this encounter [facility] 03-13-2022 Miscellaneous Notes Spoke with pt and information listed below given. Pt verbalizes understanding. Christina Verma LPN Results of upper GI with small bowel follow-through impression unremarkable upper GI and small bowel follow-through examination. Ny Report on Ny Rodriguez's desk for review. Patient calling to ask if Ny Rodriguez received his upper GI and small bowel test results from [facility] yet. Please advise patient when able. Thank you. Abeba Pettit RN documented in this encounter [facility] 03-13-2022 Miscellaneous Notes Patient has been identified by name and date of : Yes Patient phones for refill(s): Pending Prescriptions Disp Refills DICLOFENAC 1 % TOPICAL GEL 100 g 0 Sig: Apply 2 g to affected area three times daily. COLE: No Date of last office visit in primary care: 02/13/22 next apt 05/13/22 Last 2 Encounter Wt Readings: Date: Wt: 02/13/2022 81.2 kg (179 lb) 02/04/2022 83 kg (183 lb) Previous labs/tests for medication: Not applicable Please advise. Thank you. Christina Verma LPN documented in this encounter [facility] 03-12-2022 History of Present illness Narrative [facility] received prescription(s) for sprycel from Dr. Heaton's office. Benefits investigation was conducted, indicating that a prior authorization is required. TERESITA was approved with details listed below. Plan Name: [employer] Plan Agent/Mccartney: Matilde from the prior authorization department Phone/Fax: TERESITA reference number: TERESITA Approval Dates: 12/01/2021 - 03/12/2023 Prescriptions will now be processed through [facility] for determination of next steps. Martha Pat RN documented in this encounter [facility] 03-11-2022 Miscellaneous Notes Patient called and rescheduled appointment on 04/04/22. I left another message for patient to contact office to reschedule. I called and left a message for patient to contact office about appointment on 03/11/22. Dr. Cole will be out of the office for a meeting in [place] at patient appointment time. Patient will need to reschedule. documented in this encounter [facility] 03-04-2022 Miscellaneous Notes PATIENT NOTIFIED OF SAME. Order faxed to [facility] per patient request. Please call patient and inform I have ordered again upper GI with small bowel follow through. Thanks Ny Rodriguez APRN.CNP Patient calls and states that abdominal pain is in both upper and lower regions, however pain is more so on the right side. Patient reports that he is nauseous quite a bit of the time. Huyen Evans RN LEFT MESSAGE FOR PATIENT TO CALL OFFICE. Please call patient and verify where the pain is located. Is he still vomiting and nauseated throughout the day? Thanks Ny Rodriguez APRN.CNP Patient calls to update provider since starting on Carafate 3 times daily. Patient reports his symptoms are not improving at all. He reports that he is having stomach pain/discomfort with all meals and beverages no matter what it is. He reports that he is following the recommended diet/instructions from last appointment and is taking omeprazole 40 mg daily along with the Carafate 3 times daily. Patient asking what else he can do for symptoms. Please review and advise, Paty Abdalla RN documented in this encounter [facility] 03-04-2022 Instructions Shyann Sánchez - 03/04/2022 9:32 AM EDT Continue with local wound care until scabs develop Follow-up as needed documented in this encounter [facility] 03-04-2022 History of Present illness Narrative Follow up podiatric office visit for: Chief Complaint: This 51 year old who presents for follow up:matrixectomy of toes 2-5 b/l Patient presents to clinic for follow-up matrixectomy of toes 2-5 b/l. Patient denies any pain Patient denies n/v/f/c. Patient denies any drainage. PAIN EVALUATION No data found in the last 1 encounters. Hemoglobin A1C Date Value Ref Range Status 01/23/2022 4.9 4.3 - 5.6 % Final Comment: [place] [employer] guidelines indicate that patients with HgbA1c in the range 5.7-6.4% are at increased risk for development of diabetes, and intervention by lifestyle modification may be beneficial. HgbA1c greater or equal to 6.5% is considered diagnostic of diabetes. PCP: Noman Dean, PAST MEDICAL HISTORY Diagnosis Date ADHD (attention deficit hyperactivity disorder) Arrhythmia Arthritis Bipolar 1 disorder ([facility]) Dr. Easley [facility] Chronic obstructive pulmonary disease ([facility]) 04/19/2019 Chronic obstructive pulmonary disease ([facility]) CML (chronic myeloid leukemia) ([facility]) 02/13/2015 Dr. 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 Vasquez Neurologist Multiple sclerosis ([facility]) 10/2005 Dr. Mauricio Vasquez Neurologist Osteoarthritis of left knee 01/2022 Other symptoms involving abdomen and pelvis(789.9) Palpitations Schizophrenia (HCC) Dr. Easley [facility] Snoring Substance abuse rule out 03/15/2015 Syncope Tobacco abuse Current Outpatient Medications Medication Sig linaCLOtide (LINZESS) 72 mcg capsule Take first thing in the morning, 30 minutes before eating anything.Swallow whole; DO NOT crush or chew. omeprazole (PRILOSEC) 40 mg capsule Take 1 capsule by mouth once daily. ergocalciferol 50,000 unit capsule (VITAMIN D2, DRISDOL) Take 1 capsule by mouth one time a week. HYDROcodone-acetaminophen (NORCO) 5-325 mg per tablet Take 1 tablet by mouth twice daily as needed for pain for up to 30 days. amphetamine-dextroamphetamine XR (ADDERALL XR) 30 mg 24 hr capsule Take 1 capsule by mouth once daily for 30 days. oxybutynin ER (DITROPAN XL) 15 mg 24 hr Extended Rel Tab take 1 tablet by mouth once daily diclofenac (VOLTAREN ARTHRITIS PAIN) 1 % topical gel Apply 2 g to affected area three times daily. sucralfate (CARAFATE) 1 gram tablet Take 1 tablet by mouth three times daily. dasatinib (SPRYCEL) 80 mg tablet Take 1 tablet (80mg) by mouth once daily. umeclidinium-vilanterol (ANORO ELLIPTA) 62.5-25 mcg/actuation inhaler Inhale 1 Inhalation as instructed once daily. atenolol (TENORMIN) 25 mg tablet Take 1 tablet by mouth once daily. albuterol HFA (VENTOLIN HFA) 90 mcg/actuation inhaler INHALE 2 PUFFS INSTRUCTED EVERY FOUR HOURS NEEDED FOR WHEEZING / SHORTNESS OF BREATH gabapentin (NEURONTIN) 600 mg tablet TAKE 1 TABLET BY MOUTH THREE TIMES A DAY gemfibrozil (LOPID) 600 mg tablet Take 1 tablet by mouth twice daily. dicyclomine (BENTYL) 20 mg tablet Take 1 tablet by mouth three times daily. Cholecalciferol, Vitamin D3, (VITAMIN D-3) 50 mcg (2,000 unit) cap Take 1 capsule by mouth once daily. lactobacillus rhamnosus (CULTURELLE) 15 billion cell capsule Take 1 capsule by mouth once daily. lamoTRIgine (LAMICTAL) 200 mg tablet Take 1 tablet by mouth once daily. ARIPiprazole (ABILIFY) 5 mg tablet Take 1 tablet by mouth once daily. vilazodone (VIIBRYD) 40 mg Take 40 mg by mouth once daily. Current Facility-Administered Medications Medication Dose Route Frequency perflutren lipid microspheres 1.3 mL in NaCl (PF) 0.9% 10 mL injection (DEFINITY) INTRAVENOUS DIRECTED PRN sodium chloride 0.9 % (flush) 10 mL (BD POSIFLUSH) 10 mL INTRAVENOUS DIRECTED PRN ALLERGIES Allergen Reactions Aspirin GI Upset Penicillins Hives Pollen Itching Topamax [Topiramate] Other: See Comments Severe migraines PAST SURGICAL HISTORY Procedure Laterality Date BONE MARROW BIOPSY 12/2015 COLONOSCOPY FLX DX W/COLLJ SPEC WHEN PFRMD 07/22/2012 Colonoscopy repeat 3 years-requires MAC anesthesia COLONOSCOPY FLX DX W/COLLJ SPEC WHEN PFRMD 07/26/2015 Colonoscopy-pt requires MAC COLONOSCOPY SCRN NOT HIGH RISK 12/26/2020 COLONOSCOPY W/BIOPSY SINGLE/MULTIPLE 05/29/2006 repeat in 10 yrs EGD 12/26/2020 EGD 02/15/2021 ESOPHAGOGASTRODUODENOSCOPY TRANSORAL DIAGNOSTIC 02/03/2012 EGD ESOPHAGOGASTRODUODENOSCOPY TRANSORAL DIAGNOSTIC 02/07/2016 EGD ESOPHAGOGASTRODUODENOSCOPY TRANSORAL DIAGNOSTIC 05/01/2021 PAST SURGICAL HISTORY OF bladder growth- benign PAST SURGICAL HISTORY OF 2015 removal skin cancer right side neck TONSILLECTOMY HX Physical Exam: Constitutional: Pt is a well developed 51 year old male who is alert, oriented, cooperative and in no apparent distress. OBJECTIVE: NVSI unchanged from previous visit. Dermatological: Nail beds 2-5 b/l appear to be healing without infection. Prior nail bed fraying of right 3rd toe appears healed. Absorbable suture appears to have fallen out. Musculoskeletal/Orthopaedic: Patient has no pain to palpation of b/l feet ASSESSMENT: (S91.109A) Open wound of toe, initial encounter (primary encounter diagnosis) (B35.1) Onychomycosis of toenail PLAN: Patient is s/p total nail matrixectomy 2-5 b/l. There are no signs of infection Continue with local care until all healing has achieved. Informed patient that he did have fraying of right 3rd toenail bed. No signs of infection and the nail bed appears healed. I cannot see any suture on exam. It is possible is covered in granulation tissue. Offered debridement and removal but the suture is absorbable. Patient elected to let it dissolve. F/u prn Shyann Sánchez DPM AMB ROOMING INTAKE FLOWSHEET DATA Risk Screening Do you have concerns about personal safety or safety in the home?: No Patient presents with: Left Foot - Follow Up, Nail Fungus Right Foot - Follow Up, Nail Fungus Patient is here to follow up post total nail matrixectomy, toenails 2-5, B/L feet. Denies pain. DOS: 02/18/22 documented in this encounter [facility] 03-01-2022 Miscellaneous Notes Patient notified of results and provider's instructions. Patient verbalizes understanding. Huyen Evans RN Left message to return call. Please inform patient that his ECHO shows - The left ventricle is normal in size. Left ventricular systolic function is normal. EF = 61 5%. Normal left ventricular diastolic function. - The right ventricle is normal in size. Right ventricular systolic function is normal. - The left atrial cavity is mildly dilated. - There are no significant valvular abnormalities. - Exam was compared with the prior echocardiographic exam performed on 03/30/2019, no significant change. Repeat in 2 years Noman Dean DO documented in this encounter [facility] 02-28-2022 Miscellaneous Notes Patient phones requesting refills as follows: Pending Prescriptions Disp Refills LINZESS 72 MCG CAPSULE 30 capsule 5 Sig: Take first thing in the morning, 30 minutes before eating anything.Swallow whole; DO NOT crush or chew. COLE: No Please review and advise. Jade Morataya LPN documented in this encounter [facility] 02-18-2022 Note HNO ID: [id number] Author: Bairon Miguel RN Service: ? Author Type: Registered Nurse Type: Nursing Progress Note Filed: 02/18/2022 4:23 PM Note Text: 1552 tiffanie tourniquet started / intermittent. Ended 1622. [facility] documented as of this encounter (statuses as of 02/27/2022) [facility] History of Past illness Narrative* Problem Noted Date Resolved Date COPD with chronic bronchitis 03/31/2019 Screen for colon cancer 08/05/2018 01/18/20 22 Overview: Added automatically from request for surgery [id number] Chronic GERD 02/07/2016 02/07/2016 Special screening for malignant neoplasms, colon 07/26/2015 07/26/2015 GERD (gastroesophageal reflux disease) 5 01/18/2022 ADD (attention deficit disorder) 07/18/2015 01/18/2022 Substance abuse rule out 03/15/2015 022 Herpes 11/30/2014 02/28/2016 Overview: Positive for types 1 and 2. Duodenitis without mention of hemorrhage 012 01/18/2022 Acute gastritis without mention of hemorrhage 01/18/2022 Hyperlipidemia 12/18/2011 01/18/2022 Pain in joint, lower leg 07/13/2007 022 Bipolar disorder, unspecified 02/20/2007 Chest pain, unspecified 01/23/2007 01/18/20 22 Backache, unspecified 06/18/2006 01/18/2022 PROCTITIS IDIOPATHIC 06/04/2006 01/18/2022 Hemorrhage of gastrointestinal tract, unspecifie d 05/29/2006 01/18/2022 Headache(784.0) 01/21/2006 01/18/2022 documented as of this encounter (statuses as of 02/28/2022) [facility] History of Past illness Narrative* Problem Noted Date Resolved Date COPD with chronic bronchitis 03/31/2019 Screen for colon cancer 08/05/2018 01/18/20 22 Overview: Added automatically from request for surgery [id number] Chronic GERD 02/07/2016 02/07/2016 Special screening for malignant neoplasms, colon 07/26/2015 07/26/2015 GERD (gastroesophageal reflux disease) 5 01/18/2022 ADD (attention deficit disorder) 07/18/2015 01/18/2022 Substance abuse rule out 03/15/2015 022 Herpes 11/30/2014 02/28/2016 Overview: Positive for types 1 and 2. Duodenitis without mention of hemorrhage 012 01/18/2022 Acute gastritis without mention of hemorrhage 01/18/2022 Hyperlipidemia 12/18/2011 01/18/2022 Pain in joint, lower leg 07/13/2007 022 Bipolar disorder, unspecified 02/20/2007 Chest pain, unspecified 01/23/2007 01/18/20 22 Backache, unspecified 06/18/2006 01/18/2022 PROCTITIS IDIOPATHIC 06/04/2006 01/18/2022 Hemorrhage of gastrointestinal tract, unspecifie d 05/29/2006 01/18/2022 Headache(784.0) 01/21/2006 01/18/2022 documented as of this encounter (statuses as of 03/01/2022) [facility] History of Past illness Narrative* Problem Noted Date Resolved Date COPD with chronic bronchitis 03/31/2019 Screen for colon cancer 08/05/2018 01/18/20 22 Overview: Added automatically from request for surgery [id number] Chronic GERD 02/07/2016 02/07/2016 Special screening for malignant neoplasms, colon 07/26/2015 07/26/2015 GERD (gastroesophageal reflux disease) 5 01/18/2022 ADD (attention deficit disorder) 07/18/2015 01/18/2022 Substance abuse rule out 03/15/2015 022 Herpes 11/30/2014 02/28/2016 Overview: Positive for types 1 and 2. Duodenitis without mention of hemorrhage 012 01/18/2022 Acute gastritis without mention of hemorrhage 01/18/2022 Hyperlipidemia 12/18/2011 01/18/2022 Pain in joint, lower leg 07/13/2007 022 Bipolar disorder, unspecified 02/20/2007 Chest pain, unspecified 01/23/2007 01/18/20 22 Backache, unspecified 06/18/2006 01/18/2022 PROCTITIS IDIOPATHIC 06/04/2006 01/18/2022 Hemorrhage of gastrointestinal tract, unspecifie d 05/29/2006 01/18/2022 Headache(784.0) 01/21/2006 01/18/2022 documented as of this encounter (statuses as of 03/04/2022) [facility] History of Past illness Narrative* Problem Noted Date Resolved Date COPD with chronic bronchitis 03/31/2019 Screen for colon cancer 08/05/2018 01/18/20 22 Overview: Added automatically from request for surgery [id number] Chronic GERD 02/07/2016 02/07/2016 Special screening for malignant neoplasms, colon 07/26/2015 07/26/2015 GERD (gastroesophageal reflux disease) 5 01/18/2022 ADD (attention deficit disorder) 07/18/2015 01/18/2022 Substance abuse rule out 03/15/2015 022 Herpes 11/30/2014 02/28/2016 Overview: Positive for types 1 and 2. Duodenitis without mention of hemorrhage 012 01/18/2022 Acute gastritis without mention of hemorrhage 01/18/2022 Hyperlipidemia 12/18/2011 01/18/2022 Pain in joint, lower leg 07/13/2007 022 Bipolar disorder, unspecified 02/20/2007 Chest pain, unspecified 01/23/2007 01/18/20 22 Backache, unspecified 06/18/2006 01/18/2022 PROCTITIS IDIOPATHIC 06/04/2006 01/18/2022 Hemorrhage of gastrointestinal tract, unspecifie d 05/29/2006 01/18/2022 Headache(784.0) 01/21/2006 01/18/2022 documented as of this encounter (statuses as of 03/04/2022) [facility] History of Past illness Narrative* Problem Noted Date Resolved Date COPD with chronic bronchitis 03/31/2019 Screen for colon cancer 08/05/2018 01/18/20 22 Overview: Added automatically from request for surgery [id number] Chronic GERD 02/07/2016 02/07/2016 Special screening for malignant neoplasms, colon 07/26/2015 07/26/2015 GERD (gastroesophageal reflux disease) 5 01/18/2022 ADD (attention deficit disorder) 07/18/2015 01/18/2022 Substance abuse rule out 03/15/2015 022 Herpes 11/30/2014 02/28/2016 Overview: Positive for types 1 and 2. Duodenitis without mention of hemorrhage 012 01/18/2022 Acute gastritis without mention of hemorrhage 01/18/2022 Hyperlipidemia 12/18/2011 01/18/2022 Pain in joint, lower leg 07/13/2007 022 Bipolar disorder, unspecified 02/20/2007 Chest pain, unspecified 01/23/2007 01/18/20 22 Backache, unspecified 06/18/2006 01/18/2022 PROCTITIS IDIOPATHIC 06/04/2006 01/18/2022 Hemorrhage of gastrointestinal tract, unspecifie d 05/29/2006 01/18/2022 Headache(784.0) 01/21/2006 01/18/2022 documented as of this encounter (statuses as of 03/11/2022) [facility] of Past illness Narrative* Problem Noted Date Resolved Date COPD with chronic bronchitis 03/31/2019 Screen for colon cancer 08/05/2018 01/18/20 22 Overview: Added automatically from request for surgery [id number] Chronic GERD 02/07/2016 02/07/2016 Special screening for malignant neoplasms, colon 07/26/2015 07/26/2015 GERD (gastroesophageal reflux disease) 5 01/18/2022 ADD (attention deficit disorder) 07/18/2015 01/18/2022 Substance abuse rule out 03/15/2015 022 Herpes 11/30/2014 02/28/2016 Overview: Positive for types 1 and 2. Duodenitis without mention of hemorrhage 012 01/18/2022 Acute gastritis without mention of hemorrhage 01/18/2022 Hyperlipidemia 12/18/2011 01/18/2022 Pain in joint, lower leg 07/13/2007 022 Bipolar disorder, unspecified 02/20/2007 Chest pain, unspecified 01/23/2007 01/18/20 22 Backache, unspecified 06/18/2006 01/18/2022 PROCTITIS IDIOPATHIC 06/04/2006 01/18/2022 Hemorrhage of gastrointestinal tract, unspecifie d 05/29/2006 01/18/2022 Headache(784.0) 01/21/2006 01/18/2022 documented as of this encounter (statuses as of 03/12/2022) [facility] of Past illness Narrative* Problem Noted Date Resolved Date COPD with chronic bronchitis 03/31/2019 Screen for colon cancer 08/05/2018 01/18/20 22 Overview: Added automatically from request for surgery [id number] Chronic GERD 02/07/2016 02/07/2016 Special screening for malignant neoplasms, colon 07/26/2015 07/26/2015 GERD (gastroesophageal reflux disease) 5 01/18/2022 ADD (attention deficit disorder) 07/18/2015 01/18/2022 Substance abuse rule out 03/15/2015 022 Herpes 11/30/2014 02/28/2016 Overview: Positive for types 1 and 2. Duodenitis without mention of hemorrhage 012 01/18/2022 Acute gastritis without mention of hemorrhage 01/18/2022 Hyperlipidemia 12/18/2011 01/18/2022 Pain in joint, lower leg 07/13/2007 022 Bipolar disorder, unspecified 02/20/2007 Chest pain, unspecified 01/23/2007 01/18/20 22 Backache, unspecified 06/18/2006 01/18/2022 PROCTITIS IDIOPATHIC 06/04/2006 01/18/2022 Hemorrhage of gastrointestinal tract, unspecifie d 05/29/2006 01/18/2022 Headache(784.0) 01/21/2006 01/18/2022 documented as of this encounter (statuses as of 03/13/2022) [facility] Narrative* Problem Noted Date Resolved Date COPD with chronic bronchitis 03/31/2019 Screen for colon cancer 08/05/2018 01/18/20 22 Overview: Added automatically from request for surgery [id number] Chronic GERD 02/07/2016 02/07/2016 Special screening for malignant neoplasms, colon 07/26/2015 07/26/2015 GERD (gastroesophageal reflux disease) 5 01/18/2022 ADD (attention deficit disorder) 07/18/2015 01/18/2022 Substance abuse rule out 03/15/2015 022 Herpes 11/30/2014 02/28/2016 Overview: Positive for types 1 and 2. Duodenitis without mention of hemorrhage 012 01/18/2022 Acute gastritis without mention of hemorrhage 01/18/2022 Hyperlipidemia 12/18/2011 01/18/2022 Pain in joint, lower leg 07/13/2007 022 Bipolar disorder, unspecified 02/20/2007 Chest pain, unspecified 01/23/2007 01/18/20 22 Backache, unspecified 06/18/2006 01/18/2022 PROCTITIS IDIOPATHIC 06/04/2006 01/18/2022 Hemorrhage of gastrointestinal tract, unspecifie d 05/29/2006 01/18/2022 Headache(784.0) 01/21/2006 01/18/2022 documented as of this encounter (statuses as of 03/13/2022) [facility] Narrative* Problem Noted Date Resolved Date COPD with chronic bronchitis 03/31/2019 Screen for colon cancer 08/05/2018 01/18/20 22 Overview: Added automatically from request for surgery [id number] Chronic GERD 02/07/2016 02/07/2016 Special screening for malignant neoplasms, colon 07/26/2015 07/26/2015 GERD (gastroesophageal reflux disease) 5 01/18/2022 ADD (attention deficit disorder) 07/18/2015 01/18/2022 Substance abuse rule out 03/15/2015 022 Herpes 11/30/2014 02/28/2016 Overview: Positive for types 1 and 2. Duodenitis without mention of hemorrhage 012 01/18/2022 Acute gastritis without mention of hemorrhage 01/18/2022 Hyperlipidemia 12/18/2011 01/18/2022 Pain in joint, lower leg 07/13/2007 022 Bipolar disorder, unspecified 02/20/2007 Chest pain, unspecified 01/23/2007 01/18/20 22 Backache, unspecified 06/18/2006 01/18/2022 PROCTITIS IDIOPATHIC 06/04/2006 01/18/2022 Hemorrhage of gastrointestinal tract, unspecifie d 05/29/2006 01/18/2022 Headache(784.0) 01/21/2006 01/18/2022 documented as of this encounter (statuses as of 03/15/2022) [facility]arrative* Problem Noted Date Resolved Date COPD with chronic bronchitis 03/31/2019 Screen for colon cancer 08/05/2018 01/18/20 22 Overview: Added automatically from request for surgery [id number] Chronic GERD 02/07/2016 02/07/2016 Special screening for malignant neoplasms, colon 07/26/2015 07/26/2015 GERD (gastroesophageal reflux disease) 5 01/18/2022 ADD (attention deficit disorder) 07/18/2015 01/18/2022 Substance abuse rule out 03/15/2015 022 Herpes 11/30/2014 02/28/2016 Overview: Positive for types 1 and 2. Duodenitis without mention of hemorrhage 012 01/18/2022 Acute gastritis without mention of hemorrhage 01/18/2022 Hyperlipidemia 12/18/2011 01/18/2022 Pain in joint, lower leg 07/13/2007 022 Bipolar disorder, unspecified 02/20/2007 Chest pain, unspecified 01/23/2007 01/18/20 22 Backache, unspecified 06/18/2006 01/18/2022 PROCTITIS IDIOPATHIC 06/04/2006 01/18/2022 Hemorrhage of gastrointestinal tract, unspecifie d 05/29/2006 01/18/2022 Headache(784.0) 01/21/2006 01/18/2022 documented as of this encounter (statuses as of 04/03/2022) [facility]ative* Problem Noted Date Resolved Date COPD with chronic bronchitis 03/31/2019 Screen for colon cancer 08/05/2018 01/18/20 22 Overview: Added automatically from request for surgery [id number] Chronic GERD 02/07/2016 02/07/2016 Special screening for malignant neoplasms, colon 07/26/2015 07/26/2015 GERD (gastroesophageal reflux disease) 5 01/18/2022 ADD (attention deficit disorder) 07/18/2015 01/18/2022 Substance abuse rule out 03/15/2015 022 Herpes 11/30/2014 02/28/2016 Overview: Positive for types 1 and 2. Duodenitis without mention of hemorrhage 012 01/18/2022 Acute gastritis without mention of hemorrhage 01/18/2022 Hyperlipidemia 12/18/2011 01/18/2022 Pain in joint, lower leg 07/13/2007 022 Bipolar disorder, unspecified 02/20/2007 Chest pain, unspecified 01/23/2007 01/18/20 22 Backache, unspecified 06/18/2006 01/18/2022 PROCTITIS IDIOPATHIC 06/04/2006 01/18/2022 Hemorrhage of gastrointestinal tract, unspecifie d 05/29/2006 01/18/2022 Headache(784.0) 01/21/2006 01/18/2022 documented as of this encounter (statuses as of 04/04/2022) [facility]arrative* Problem Noted Date Resolved Date COPD with chronic bronchitis 03/31/2019 Screen for colon cancer 08/05/2018 01/18/20 22 Overview: Added automatically from request for surgery [id number] Chronic GERD 02/07/2016 02/07/2016 Special screening for malignant neoplasms, colon 07/26/2015 07/26/2015 GERD (gastroesophageal reflux disease) 5 01/18/2022 ADD (attention deficit disorder) 07/18/2015 01/18/2022 Substance abuse rule out 03/15/2015 022 Herpes 11/30/2014 02/28/2016 Overview: Positive for types 1 and 2. Duodenitis without mention of hemorrhage 012 01/18/2022 Acute gastritis without mention of hemorrhage 01/18/2022 Hyperlipidemia 12/18/2011 01/18/2022 Pain in joint, lower leg 07/13/2007 022 Bipolar disorder, unspecified 02/20/2007 Chest pain, unspecified 01/23/2007 01/18/20 22 Backache, unspecified 06/18/2006 01/18/2022 PROCTITIS IDIOPATHIC 06/04/2006 01/18/2022 Hemorrhage of gastrointestinal tract, unspecifie d 05/29/2006 01/18/2022 Headache(784.0) 01/21/2006 01/18/2022 documented as of this encounter (statuses as of 04/04/2022) [facility]arrative* Problem Noted Date Resolved Date COPD with chronic bronchitis 03/31/2019 Screen for colon cancer 08/05/2018 01/18/20 22 Overview: Added automatically from request for surgery [id number] Chronic GERD 02/07/2016 02/07/2016 Special screening for malignant neoplasms, colon 07/26/2015 07/26/2015 GERD (gastroesophageal reflux disease) 5 01/18/2022 ADD (attention deficit disorder) 07/18/2015 01/18/2022 Substance abuse rule out 03/15/2015 022 Herpes 11/30/2014 02/28/2016 Overview: Positive for types 1 and 2. Duodenitis without mention of hemorrhage 012 01/18/2022 Acute gastritis without mention of hemorrhage 01/18/2022 Hyperlipidemia 12/18/2011 01/18/2022 Pain in joint, lower leg 07/13/2007 022 Bipolar disorder, unspecified 02/20/2007 Chest pain, unspecified 01/23/2007 01/18/20 22 Backache, unspecified 06/18/2006 01/18/2022 PROCTITIS IDIOPATHIC 06/04/2006 01/18/2022 Hemorrhage of gastrointestinal tract, unspecifie d 05/29/2006 01/18/2022 Headache(784.0) 01/21/2006 01/18/2022 documented as of this encounter (statuses as of 04/08/2022) [facility]arrative* Problem Noted Date Resolved Date COPD with chronic bronchitis 03/31/2019 Screen for colon cancer 08/05/2018 01/18/20 22 Overview: Added automatically from request for surgery [id number] Chronic GERD 02/07/2016 02/07/2016 Special screening for malignant neoplasms, colon 07/26/2015 07/26/2015 GERD (gastroesophageal reflux disease) 5 01/18/2022 ADD (attention deficit disorder) 07/18/2015 01/18/2022 Substance abuse rule out 03/15/2015 022 Herpes 11/30/2014 02/28/2016 Overview: Positive for types 1 and 2. Duodenitis without mention of hemorrhage 012 01/18/2022 Acute gastritis without mention of hemorrhage 01/18/2022 Hyperlipidemia 12/18/2011 01/18/2022 Pain in joint, lower leg 07/13/2007 022 Bipolar disorder, unspecified 02/20/2007 Chest pain, unspecified 01/23/2007 01/18/20 22 Backache, unspecified 06/18/2006 01/18/2022 PROCTITIS IDIOPATHIC 06/04/2006 01/18/2022 Hemorrhage of gastrointestinal tract, unspecifie d 05/29/2006 01/18/2022 Headache(784.0) 01/21/2006 01/18/2022 documented as of this encounter (statuses as of 04/08/2022) [facility] [facility] History of Past illness Narrative* Problem Noted Date Resolved Date COPD with chronic bronchitis 03/31/2019 Screen for colon cancer 08/05/2018 01/18/20 22 Overview: Added automatically from request for surgery [id number] Chronic GERD 02/07/2016 02/07/2016 Special screening for malignant neoplasms, colon 07/26/2015 07/26/2015 GERD (gastroesophageal reflux disease) 5 01/18/2022 ADD (attention deficit disorder) 07/18/2015 01/18/2022 Substance abuse rule out 03/15/2015 022 Herpes 11/30/2014 02/28/2016 Overview: Positive for types 1 and 2. Duodenitis without mention of hemorrhage 012 01/18/2022 Acute gastritis without mention of hemorrhage 01/18/2022 Hyperlipidemia 12/18/2011 01/18/2022 Pain in joint, lower leg 07/13/2007 022 Bipolar disorder, unspecified 02/20/2007 Chest pain, unspecified 01/23/2007 01/18/20 22 Backache, unspecified 06/18/2006 01/18/2022 PROCTITIS IDIOPATHIC 06/04/2006 01/18/2022 Hemorrhage of gastrointestinal tract, unspecifie d 05/29/2006 01/18/2022 Headache(784.0) 01/21/2006 01/18/2022 documented as of this encounter (statuses as of 04/09/2022) [facility]05-01[facility]2019 History of Past illness Narrative* Problem Noted Date Resolved Date COPD with chronic bronchitis 03/31/2019 Screen for colon cancer 08/05/2018 01/18/20 22 Overview: Added automatically from request for surgery [id number] Chronic GERD 02/07/2016 02/07/2016 Special screening for malignant neoplasms, colon 07/26/2015 07/26/2015 GERD (gastroesophageal reflux disease) 5 01/18/2022 ADD (attention deficit disorder) 07/18/2015 01/18/2022 Substance abuse rule out 03/15/2015 022 Herpes 11/30/2014 02/28/2016 Overview: Positive for types 1 and 2. Duodenitis without mention of hemorrhage 012 01/18/2022 Acute gastritis without mention of hemorrhage 01/18/2022 Hyperlipidemia 12/18/2011 01/18/2022 Pain in joint, lower leg 07/13/2007 022 Bipolar disorder, unspecified 02/20/2007 Chest pain, unspecified 01/23/2007 01/18/20 22 Backache, unspecified 06/18/2006 01/18/2022 PROCTITIS IDIOPATHIC 06/04/2006 01/18/2022 Hemorrhage of gastrointestinal tract, unspecifie d 05/29/2006 01/18/2022 Headache(784.0) 01/21/2006 01/18/2022 documented as of this encounter (statuses as of 04/09/2022) [facility]05[facility] History of Past illness Narrative* Problem Noted Date Resolved Date COPD with chronic bronchitis 03/31/2019 Screen for colon cancer 08/05/2018 01/18/20 22 Overview: Added automatically from request for surgery [id number] Chronic GERD 02/07/2016 02/07/2016 Special screening for malignant neoplasms, colon 07/26/2015 07/26/2015 GERD (gastroesophageal reflux disease) 5 01/18/2022 ADD (attention deficit disorder) 07/18/2015 01/18/2022 Substance abuse rule out 03/15/2015 022 Herpes 11/30/2014 02/28/2016 Overview: Positive for types 1 and 2. Duodenitis without mention of hemorrhage 012 01/18/2022 Acute gastritis without mention of hemorrhage 01/18/2022 Hyperlipidemia 12/18/2011 01/18/2022 Pain in joint, lower leg 07/13/2007 022 Bipolar disorder, unspecified 02/20/2007 Chest pain, unspecified 01/23/2007 01/18/20 22 Backache, unspecified 06/18/2006 01/18/2022 PROCTITIS IDIOPATHIC 06/04/2006 01/18/2022 Hemorrhage of gastrointestinal tract, unspecifie d 05/29/2006 01/18/2022 Headache(784.0) 01/21/2006 01/18/2022 documented as of this encounter (statuses as of 04/16/2022) [facility] History of Past illness Narrative* Problem Noted Date Resolved Date COPD with chronic bronchitis 03/31/2019 Screen for colon cancer 08/05/2018 01/18/20 22 Overview: Added automatically from request for surgery [id number] Chronic GERD 02/07/2016 02/07/2016 Special screening for malignant neoplasms, colon 07/26/2015 07/26/2015 GERD (gastroesophageal reflux disease) 5 01/18/2022 ADD (attention deficit disorder) 07/18/2015 01/18/2022 Substance abuse rule out 03/15/2015 022 Herpes 11/30/2014 02/28/2016 Overview: Positive for types 1 and 2. Duodenitis without mention of hemorrhage 012 01/18/2022 Acute gastritis without mention of hemorrhage 01/18/2022 Hyperlipidemia 12/18/2011 01/18/2022 Pain in joint, lower leg 07/13/2007 022 Bipolar disorder, unspecified 02/20/2007 Chest pain, unspecified 01/23/2007 01/18/20 22 Backache, unspecified 06/18/2006 01/18/2022 PROCTITIS IDIOPATHIC 06/04/2006 01/18/2022 Hemorrhage of gastrointestinal tract, unspecifie d 05/29/2006 01/18/2022 Headache(784.0) 01/21/2006 01/18/2022 documented as of this encounter (statuses as of 05/06/2022) [facility] History of Past illness Narrative* Problem Noted Date Resolved Date COPD with chronic bronchitis 03/31/2019 Screen for colon cancer 08/05/2018 01/18/20 22 Overview: Added automatically from request for surgery [id number] Chronic GERD 02/07/2016 02/07/2016 Special screening for malignant neoplasms, colon 07/26/2015 07/26/2015 GERD (gastroesophageal reflux disease) 5 01/18/2022 ADD (attention deficit disorder) 07/18/2015 01/18/2022 Substance abuse rule out 03/15/2015 022 Herpes 11/30/2014 02/28/2016 Overview: Positive for types 1 and 2. Duodenitis without mention of hemorrhage 012 01/18/2022 Acute gastritis without mention of hemorrhage 01/18/2022 Hyperlipidemia 12/18/2011 01/18/2022 Pain in joint, lower leg 07/13/2007 022 Bipolar disorder, unspecified 02/20/2007 Chest pain, unspecified 01/23/2007 01/18/20 22 Backache, unspecified 06/18/2006 01/18/2022 PROCTITIS IDIOPATHIC 06/04/2006 01/18/2022 Hemorrhage of gastrointestinal tract, unspecifie d 05/29/2006 01/18/2022 Headache(784.0) 01/21/2006 01/18/2022 documented as of this encounter (statuses as of 05/06/2022) [facility]2019 History of Past illness Narrative* Problem Noted Date Resolved Date COPD with chronic bronchitis 03/31/2019 Screen for colon cancer 08/05/2018 01/18/20 22 Overview: Added automatically from request for surgery [id number] Chronic GERD 02/07/2016 02/07/2016 Special screening for malignant neoplasms, colon 07/26/2015 07/26/2015 GERD (gastroesophageal reflux disease) 5 01/18/2022 ADD (attention deficit disorder) 07/18/2015 01/18/2022 Substance abuse rule out 03/15/2015 022 Herpes 11/30/2014 02/28/2016 Overview: Positive for types 1 and 2. Duodenitis without mention of hemorrhage 012 01/18/2022 Acute gastritis without mention of hemorrhage 01/18/2022 Hyperlipidemia 12/18/2011 01/18/2022 Pain in joint, lower leg 07/13/2007 022 Bipolar disorder, unspecified 02/20/2007 Chest pain, unspecified 01/23/2007 01/18/20 22 Backache, unspecified 06/18/2006 01/18/2022 PROCTITIS IDIOPATHIC 06/04/2006 01/18/2022 Hemorrhage of gastrointestinal tract, unspecifie d 05/29/2006 01/18/2022 Headache(784.0) 01/21/2006 01/18/2022 documented as of this encounter (statuses as of 05/13/2022) [facility] History of Past illness Narrative* Problem Noted Date Resolved Date COPD with chronic bronchitis 03/31/2019 Screen for colon cancer 08/05/2018 01/18/20 22 Overview: Added automatically from request for surgery [id number] Chronic GERD 02/07/2016 02/07/2016 Special screening for malignant neoplasms, colon 07/26/2015 07/26/2015 GERD (gastroesophageal reflux disease) 5 01/18/2022 ADD (attention deficit disorder) 07/18/2015 01/18/2022 Substance abuse rule out 03/15/2015 022 Herpes 11/30/2014 02/28/2016 Overview: Positive for types 1 and 2. Duodenitis without mention of hemorrhage 012 01/18/2022 Acute gastritis without mention of hemorrhage 01/18/2022 Hyperlipidemia 12/18/2011 01/18/2022 Pain in joint, lower leg 07/13/2007 022 Bipolar disorder, unspecified 02/20/2007 Chest pain, unspecified 01/23/2007 01/18/20 22 Backache, unspecified 06/18/2006 01/18/2022 PROCTITIS IDIOPATHIC 06/04/2006 01/18/2022 Hemorrhage of gastrointestinal tract, unspecifie d 05/29/2006 01/18/2022 Headache(784.0) 01/21/2006 01/18/2022 documented as of this encounter (statuses as of 05/14/2022) [facility] History of Past illness Narrative* Problem Noted Date Resolved Date COPD with chronic bronchitis 03/31/2019 Screen for colon cancer 08/05/2018 01/18/20 22 Overview: Added automatically from request for surgery [id number] Chronic GERD 02/07/2016 02/07/2016 Special screening for malignant neoplasms, colon 07/26/2015 07/26/2015 GERD (gastroesophageal reflux disease) 5 01/18/2022 ADD (attention deficit disorder) 07/18/2015 01/18/2022 Substance abuse rule out 03/15/2015 022 Herpes 11/30/2014 02/28/2016 Overview: Positive for types 1 and 2. Duodenitis without mention of hemorrhage 012 01/18/2022 Acute gastritis without mention of hemorrhage 01/18/2022 Hyperlipidemia 12/18/2011 01/18/2022 Pain in joint, lower leg 07/13/2007 022 Bipolar disorder, unspecified 02/20/2007 Chest pain, unspecified 01/23/2007 01/18/20 22 Backache, unspecified 06/18/2006 01/18/2022 PROCTITIS IDIOPATHIC 06/04/2006 01/18/2022 Hemorrhage of gastrointestinal tract, unspecifie d 05/29/2006 01/18/2022 Headache(784.0) 01/21/2006 01/18/2022 documented as of this encounter (statuses as of 05/15/2022) [facility] History of Past illness Narrative* Problem Noted Date Resolved Date COPD with chronic bronchitis 03/31/2019 Screen for colon cancer 08/05/2018 01/18/20 22 Overview: Added automatically from request for surgery [id number] Chronic GERD 02/07/2016 02/07/2016 Special screening for malignant neoplasms, colon 07/26/2015 07/26/2015 GERD (gastroesophageal reflux disease) 5 01/18/2022 ADD (attention deficit disorder) 07/18/2015 01/18/2022 Substance abuse rule out 03/15/2015 022 Herpes 11/30/2014 02/28/2016 Overview: Positive for types 1 and 2. Duodenitis without mention of hemorrhage 012 01/18/2022 Acute gastritis without mention of hemorrhage 01/18/2022 Hyperlipidemia 12/18/2011 01/18/2022 Pain in joint, lower leg 07/13/2007 022 Bipolar disorder, unspecified 02/20/2007 Chest pain, unspecified 01/23/2007 01/18/20 22 Backache, unspecified 06/18/2006 01/18/2022 PROCTITIS IDIOPATHIC 06/04/2006 01/18/2022 Hemorrhage of gastrointestinal tract, unspecifie d 05/29/2006 01/18/2022 Headache(784.0) 01/21/2006 01/18/2022 documented as of this encounter (statuses as of 05/15/2022) [facility] History of Past illness Narrative* Problem Noted Date Resolved Date COPD with chronic bronchitis 03/31/2019 Screen for colon cancer 08/05/2018 01/18/20 22 Overview: Added automatically from request for surgery [id number] Chronic GERD 02/07/2016 02/07/2016 Special screening for malignant neoplasms, colon 07/26/2015 07/26/2015 GERD (gastroesophageal reflux disease) 5 01/18/2022 ADD (attention deficit disorder) 07/18/2015 01/18/2022 Substance abuse rule out 03/15/2015 022 Herpes 11/30/2014 02/28/2016 Overview: Positive for types 1 and 2. Duodenitis without mention of hemorrhage 012 01/18/2022 Acute gastritis without mention of hemorrhage 01/18/2022 Hyperlipidemia 12/18/2011 01/18/2022 Pain in joint, lower leg 07/13/2007 022 Bipolar disorder, unspecified 02/20/2007 Chest pain, unspecified 01/23/2007 01/18/20 22 Backache, unspecified 06/18/2006 01/18/2022 PROCTITIS IDIOPATHIC 06/04/2006 01/18/2022 Hemorrhage of gastrointestinal tract, unspecifie d 05/29/2006 01/18/2022 Headache(784.0) 01/21/2006 01/18/2022 documented as of this encounter (statuses as of 05/16/2022) [facility] History of Past illness Narrative* Problem Noted Date Resolved Date COPD with chronic bronchitis 03/31/2019 Screen for colon cancer 08/05/2018 01/18/20 22 Overview: Added automatically from request for surgery [id number] Chronic GERD 02/07/2016 02/07/2016 Special screening for malignant neoplasms, colon 07/26/2015 07/26/2015 GERD (gastroesophageal reflux disease) 5 01/18/2022 ADD (attention deficit disorder) 07/18/2015 01/18/2022 Substance abuse rule out 03/15/2015 022 Herpes 11/30/2014 02/28/2016 Overview: Positive for types 1 and 2. Duodenitis without mention of hemorrhage 012 01/18/2022 Acute gastritis without mention of hemorrhage 01/18/2022 Hyperlipidemia 12/18/2011 01/18/2022 Pain in joint, lower leg 07/13/2007 022 Bipolar disorder, unspecified 02/20/2007 Chest pain, unspecified 01/23/2007 01/18/20 22 Backache, unspecified 06/18/2006 01/18/2022 PROCTITIS IDIOPATHIC 06/04/2006 01/18/2022 Hemorrhage of gastrointestinal tract, unspecifie d 05/29/2006 01/18/2022 Headache(784.0) 01/21/2006 01/18/2022 documented as of this encounter (statuses as of 05/18/2022) [facility] History of Past illness Narrative* Problem Noted Date Resolved Date COPD with chronic bronchitis 03/31/2019 Screen for colon cancer 08/05/2018 01/18/20 22 Overview: Added automatically from request for surgery [id number] Chronic GERD 02/07/2016 02/07/2016 Special screening for malignant neoplasms, colon 07/26/2015 07/26/2015 GERD (gastroesophageal reflux disease) 5 01/18/2022 ADD (attention deficit disorder) 07/18/2015 01/18/2022 Substance abuse rule out 03/15/2015 022 Herpes 11/30/2014 02/28/2016 Overview: Positive for types 1 and 2. Duodenitis without mention of hemorrhage 012 01/18/2022 Acute gastritis without mention of hemorrhage 01/18/2022 Hyperlipidemia 12/18/2011 01/18/2022 Pain in joint, lower leg 07/13/2007 022 Bipolar disorder, unspecified 02/20/2007 Chest pain, unspecified 01/23/2007 01/18/20 22 Backache, unspecified 06/18/2006 01/18/2022 PROCTITIS IDIOPATHIC 06/04/2006 01/18/2022 Hemorrhage of gastrointestinal tract, unspecifie d 05/29/2006 01/18/2022 Headache(784.0) 01/21/2006 01/18/2022 documented as of this encounter (statuses as of 05/21/2022) [facility] History of Past illness Narrative* Problem Noted Date Resolved Date COPD with chronic bronchitis 03/31/2019 Screen for colon cancer 08/05/2018 01/18/20 22 Overview: Added automatically from request for surgery [id number] Chronic GERD 02/07/2016 02/07/2016 Special screening for malignant neoplasms, colon 07/26/2015 07/26/2015 GERD (gastroesophageal reflux disease) 5 01/18/2022 ADD (attention deficit disorder) 07/18/2015 01/18/2022 Substance abuse rule out 03/15/2015 022 Herpes 11/30/2014 02/28/2016 Overview: Positive for types 1 and 2. Duodenitis without mention of hemorrhage 012 01/18/2022 Acute gastritis without mention of hemorrhage 01/18/2022 Hyperlipidemia 12/18/2011 01/18/2022 Pain in joint, lower leg 07/13/2007 022 Bipolar disorder, unspecified 02/20/2007 Chest pain, unspecified 01/23/2007 01/18/20 22 Backache, unspecified 06/18/2006 01/18/2022 PROCTITIS IDIOPATHIC 06/04/2006 01/18/2022 Hemorrhage of gastrointestinal tract, unspecifie d 05/29/2006 01/18/2022 Headache(784.0) 01/21/2006 01/18/2022 documented as of this encounter (statuses as of 05/22/2022) [facility] History of Past illness Narrative* Problem Noted Date Resolved Date COPD with chronic bronchitis 03/31/2019 Screen for colon cancer 08/05/2018 01/18/20 22 Overview: Added automatically from request for surgery [id number] Chronic GERD 02/07/2016 02/07/2016 Special screening for malignant neoplasms, colon 07/26/2015 07/26/2015 GERD (gastroesophageal reflux disease) 5 01/18/2022 ADD (attention deficit disorder) 07/18/2015 01/18/2022 Substance abuse rule out 03/15/2015 022 Herpes 11/30/2014 02/28/2016 Overview: Positive for types 1 and 2. Duodenitis without mention of hemorrhage 012 01/18/2022 Acute gastritis without mention of hemorrhage 01/18/2022 Hyperlipidemia 12/18/2011 01/18/2022 Pain in joint, lower leg 07/13/2007 022 Bipolar disorder, unspecified 02/20/2007 Chest pain, unspecified 01/23/2007 01/18/20 22 Backache, unspecified 06/18/2006 01/18/2022 PROCTITIS IDIOPATHIC 06/04/2006 01/18/2022 Hemorrhage of gastrointestinal tract, unspecifie d 05/29/2006 01/18/2022 Headache(784.0) 01/21/2006 01/18/2022 documented as of this encounter (statuses as of 05/31/2022) [facility] History of Past illness Narrative* Problem Noted Date Resolved Date COPD with chronic bronchitis 03/31/2019 Screen for colon cancer 08/05/2018 01/18/20 22 Overview: Added automatically from request for surgery [id number] Chronic GERD 02/07/2016 02/07/2016 Special screening for malignant neoplasms, colon 07/26/2015 07/26/2015 GERD (gastroesophageal reflux disease) 5 01/18/2022 ADD (attention deficit disorder) 07/18/2015 01/18/2022 Substance abuse rule out 03/15/2015 022 Herpes 11/30/2014 02/28/2016 Overview: Positive for types 1 and 2. Duodenitis without mention of hemorrhage 012 01/18/2022 Acute gastritis without mention of hemorrhage 01/18/2022 Hyperlipidemia 12/18/2011 01/18/2022 Pain in joint, lower leg 07/13/2007 022 Bipolar disorder, unspecified 02/20/2007 Chest pain, unspecified 01/23/2007 01/18/20 22 Backache, unspecified 06/18/2006 01/18/2022 PROCTITIS IDIOPATHIC 06/04/2006 01/18/2022 Hemorrhage of gastrointestinal tract, unspecifie d 05/29/2006 01/18/2022 Headache(784.0) 01/21/2006 01/18/2022 documented as of this encounter (statuses as of 06/05/2022) [facility] History of Past illness Narrative* Problem Noted Date Resolved Date COPD with chronic bronchitis 03/31/2019 Screen for colon cancer 08/05/2018 01/18/20 22 Overview: Added automatically from request for surgery [id number] Chronic GERD 02/07/2016 02/07/2016 Special screening for malignant neoplasms, colon 07/26/2015 07/26/2015 GERD (gastroesophageal reflux disease) 5 01/18/2022 ADD (attention deficit disorder) 07/18/2015 01/18/2022 Substance abuse rule out 03/15/2015 022 Herpes 11/30/2014 02/28/2016 Overview: Positive for types 1 and 2. Duodenitis without mention of hemorrhage 012 01/18/2022 Acute gastritis without mention of hemorrhage 01/18/2022 Hyperlipidemia 12/18/2011 01/18/2022 Pain in joint, lower leg 07/13/2007 022 Bipolar disorder, unspecified 02/20/2007 Chest pain, unspecified 01/23/2007 01/18/20 22 Backache, unspecified 06/18/2006 01/18/2022 PROCTITIS IDIOPATHIC 06/04/2006 01/18/2022 Hemorrhage of gastrointestinal tract, unspecifie d 05/29/2006 01/18/2022 Headache(784.0) 01/21/2006 01/18/2022 documented as of this encounter (statuses as of 06/10/2022) [facility] History of Past illness Narrative* Problem Noted Date Resolved Date COPD with chronic bronchitis 03/31/2019 Screen for colon cancer 08/05/2018 01/18/20 22 Overview: Added automatically from request for surgery [id number] Chronic GERD 02/07/2016 02/07/2016 Special screening for malignant neoplasms, colon 07/26/2015 07/26/2015 GERD (gastroesophageal reflux disease) 5 01/18/2022 ADD (attention deficit disorder) 07/18/2015 01/18/2022 Substance abuse rule out 03/15/2015 022 Herpes 11/30/2014 02/28/2016 Overview: Positive for types 1 and 2. Duodenitis without mention of hemorrhage 012 01/18/2022 Acute gastritis without mention of hemorrhage 01/18/2022 Hyperlipidemia 12/18/2011 01/18/2022 Pain in joint, lower leg 07/13/2007 022 Bipolar disorder, unspecified 02/20/2007 Chest pain, unspecified 01/23/2007 01/18/20 22 Backache, unspecified 06/18/2006 01/18/2022 PROCTITIS IDIOPATHIC 06/04/2006 01/18/2022 Hemorrhage of gastrointestinal tract, unspecifie d 05/29/2006 01/18/2022 Headache(784.0) 01/21/2006 01/18/2022 documented as of this encounter (statuses as of 06/13/2022) [facility] History of Past illness Narrative* Problem Noted Date Resolved Date COPD with chronic bronchitis 03/31/2019 Screen for colon cancer 08/05/2018 01/18/20 22 Overview: Added automatically from request for surgery [id number] Chronic GERD 02/07/2016 02/07/2016 Special screening for malignant neoplasms, colon 07/26/2015 07/26/2015 GERD (gastroesophageal reflux disease) 5 01/18/2022 ADD (attention deficit disorder) 07/18/2015 01/18/2022 Substance abuse rule out 03/15/2015 022 Herpes 11/30/2014 02/28/2016 Overview: Positive for types 1 and 2. Duodenitis without mention of hemorrhage 012 01/18/2022 Acute gastritis without mention of hemorrhage 01/18/2022 Hyperlipidemia 12/18/2011 01/18/2022 Pain in joint, lower leg 07/13/2007 022 Bipolar disorder, unspecified 02/20/2007 Chest pain, unspecified 01/23/2007 01/18/20 22 Backache, unspecified 06/18/2006 01/18/2022 PROCTITIS IDIOPATHIC 06/04/2006 01/18/2022 Hemorrhage of gastrointestinal tract, unspecifie d 05/29/2006 01/18/2022 Headache(784.0) 01/21/2006 01/18/2022 documented as of this encounter (statuses as of 07/02/2022) [facility] History of Past illness Narrative* Problem Noted Date Resolved Date COPD with chronic bronchitis 03/31/2019 Screen for colon cancer 08/05/2018 01/18/20 22 Overview: Added automatically from request for surgery [id number] Chronic GERD 02/07/2016 02/07/2016 Special screening for malignant neoplasms, colon 07/26/2015 07/26/2015 GERD (gastroesophageal reflux disease) 5 01/18/2022 ADD (attention deficit disorder) 07/18/2015 01/18/2022 Substance abuse rule out 03/15/2015 022 Herpes 11/30/2014 02/28/2016 Overview: Positive for types 1 and 2. Duodenitis without mention of hemorrhage 012 01/18/2022 Acute gastritis without mention of hemorrhage 01/18/2022 Hyperlipidemia 12/18/2011 01/18/2022 Pain in joint, lower leg 07/13/2007 022 Bipolar disorder, unspecified 02/20/2007 Chest pain, unspecified 01/23/2007 01/18/20 22 Backache, unspecified 06/18/2006 01/18/2022 PROCTITIS IDIOPATHIC 06/04/2006 01/18/2022 Hemorrhage of gastrointestinal tract, unspecifie d 05/29/2006 01/18/2022 Headache(784.0) 01/21/2006 01/18/2022 documented as of this encounter (statuses as of 07/02/2022) [facility] History of Past illness Narrative* Problem Noted Date Resolved Date COPD with chronic bronchitis 03/31/2019 Screen for colon cancer 08/05/2018 01/18/20 22 Overview: Added automatically from request for surgery [id number] Chronic GERD 02/07/2016 02/07/2016 Special screening for malignant neoplasms, colon 07/26/2015 07/26/2015 GERD (gastroesophageal reflux disease) 5 01/18/2022 ADD (attention deficit disorder) 07/18/2015 01/18/2022 Substance abuse rule out 03/15/2015 022 Herpes 11/30/2014 02/28/2016 Overview: Positive for types 1 and 2. Duodenitis without mention of hemorrhage 012 01/18/2022 Acute gastritis without mention of hemorrhage 01/18/2022 Hyperlipidemia 12/18/2011 01/18/2022 Pain in joint, lower leg 07/13/2007 022 Bipolar disorder, unspecified 02/20/2007 Chest pain, unspecified 01/23/2007 01/18/20 22 Backache, unspecified 06/18/2006 01/18/2022 PROCTITIS IDIOPATHIC 06/04/2006 01/18/2022 Hemorrhage of gastrointestinal tract, unspecifie d 05/29/2006 01/18/2022 Headache(784.0) 01/21/2006 01/18/2022 documented as of this encounter (statuses as of 07/03/2022) [facility] History of Past illness Narrative* Problem Noted Date Resolved Date COPD with chronic bronchitis 03/31/2019 Screen for colon cancer 08/05/2018 01/18/20 22 Overview: Added automatically from request for surgery [id number] Chronic GERD 02/07/2016 02/07/2016 Special screening for malignant neoplasms, colon 07/26/2015 07/26/2015 GERD (gastroesophageal reflux disease) 5 01/18/2022 ADD (attention deficit disorder) 07/18/2015 01/18/2022 Substance abuse rule out 03/15/2015 022 Herpes 11/30/2014 02/28/2016 Overview: Positive for types 1 and 2. Duodenitis without mention of hemorrhage 012 01/18/2022 Acute gastritis without mention of hemorrhage 01/18/2022 Hyperlipidemia 12/18/2011 01/18/2022 Pain in joint, lower leg 07/13/2007 022 Bipolar disorder, unspecified 02/20/2007 Chest pain, unspecified 01/23/2007 01/18/20 22 Backache, unspecified 06/18/2006 01/18/2022 PROCTITIS IDIOPATHIC 06/04/2006 01/18/2022 Hemorrhage of gastrointestinal tract, unspecifie d 05/29/2006 01/18/2022 Headache(784.0) 01/21/2006 01/18/2022 documented as of this encounter (statuses as of 07/03/2022) [facility] History of Past illness Narrative* Problem Noted Date Resolved Date COPD with chronic bronchitis 03/31/2019 Screen for colon cancer 08/05/2018 01/18/20 22 Overview: Added automatically from request for surgery [id number] Chronic GERD 02/07/2016 02/07/2016 Special screening for malignant neoplasms, colon 07/26/2015 07/26/2015 GERD (gastroesophageal reflux disease) 5 01/18/2022 ADD (attention deficit disorder) 07/18/2015 01/18/2022 Substance abuse rule out 03/15/2015 022 Herpes 11/30/2014 02/28/2016 Overview: Positive for types 1 and 2. Duodenitis without mention of hemorrhage 012 01/18/2022 Acute gastritis without mention of hemorrhage 01/18/2022 Hyperlipidemia 12/18/2011 01/18/2022 Pain in joint, lower leg 07/13/2007 022 Bipolar disorder, unspecified 02/20/2007 Chest pain, unspecified 01/23/2007 01/18/20 22 Backache, unspecified 06/18/2006 01/18/2022 PROCTITIS IDIOPATHIC 06/04/2006 01/18/2022 Hemorrhage of gastrointestinal tract, unspecifie d 05/29/2006 01/18/2022 Headache(784.0) 01/21/2006 01/18/2022 documented as of this encounter (statuses as of 07/10/2022) [facility]05-01-2019 History of Past illness Narrative* Problem Noted Date Resolved Date COPD with chronic bronchitis 03/31/2019 Screen for colon cancer 08/05/2018 01/18/20 22 Overview: Added automatically from request for surgery [id number] Chronic GERD 02/07/2016 02/07/2016 Special screening for malignant neoplasms, colon 07/26/2015 07/26/2015 GERD (gastroesophageal reflux disease) 5 01/18/2022 ADD (attention deficit disorder) 07/18/2015 01/18/2022 Substance abuse rule out 03/15/2015 022 Herpes 11/30/2014 02/28/2016 Overview: Positive for types 1 and 2. Duodenitis without mention of hemorrhage 012 01/18/2022 Acute gastritis without mention of hemorrhage 01/18/2022 Hyperlipidemia 12/18/2011 01/18/2022 Pain in joint, lower leg 07/13/2007 022 Bipolar disorder, unspecified 02/20/2007 Chest pain, unspecified 01/23/2007 01/18/20 22 Backache, unspecified 06/18/2006 01/18/2022 PROCTITIS IDIOPATHIC 06/04/2006 01/18/2022 Hemorrhage of gastrointestinal tract, unspecifie d 05/29/2006 01/18/2022 Headache(784.0) 01/21/2006 01/18/2022 documented as of this encounter (statuses as of 07/18/2022) [facility]2019 History of Past illness Narrative* Problem Noted Date Resolved Date COPD with chronic bronchitis 03/31/2019 Screen for colon cancer 08/05/2018 01/18/20 Overview: Added automatically from request for surgery [id number] Chronic GERD 02/07/2016 02/07/2016 Special screening for malignant neoplasms, colon 07/26/2015 07/26/2015 GERD (gastroesophageal reflux disease) 5 01/18/2022 ADD (attention deficit disorder) 07/18/2015 01/18/2022 Substance abuse rule out 03/15/2015 022 Herpes 11/30/2014 02/28/2016 Overview: Positive for types 1 and 2. Duodenitis without mention of hemorrhage 012 01/18/2022 Acute gastritis without mention of hemorrhage 01/18/2022 Hyperlipidemia 12/18/2011 01/18/2022 Pain in joint, lower leg 07/13/2007 022 Bipolar disorder, unspecified 02/20/2007 Chest pain, unspecified 01/23/2007 01/18/20 22 Backache, unspecified 06/18/2006 01/18/2022 PROCTITIS IDIOPATHIC 06/04/2006 01/18/2022 Hemorrhage of gastrointestinal tract, unspecifie d 05/29/2006 01/18/2022 Headache(784.0) 01/21/2006 01/18/2022 documented as of this encounter (statuses as of 07/24/2022) [facility] History of Past illness Narrative* Problem Noted Date Resolved Date COPD with chronic bronchitis 03/31/2019 Screen for colon cancer 08/05/2018 01/18/20 22 Overview: Added automatically from request for surgery [id number] Chronic GERD 02/07/2016 02/07/2016 Special screening for malignant neoplasms, colon 07/26/2015 07/26/2015 GERD (gastroesophageal reflux disease) 5 01/18/2022 ADD (attention deficit disorder) 07/18/2015 01/18/2022 Substance abuse rule out 03/15/2015 022 Herpes 11/30/2014 02/28/2016 Overview: Positive for types 1 and 2. Duodenitis without mention of hemorrhage 012 01/18/2022 Acute gastritis without mention of hemorrhage 01/18/2022 Hyperlipidemia 12/18/2011 01/18/2022 Pain in joint, lower leg 07/13/2007 022 Bipolar disorder, unspecified 02/20/2007 Chest pain, unspecified 01/23/2007 01/18/20 22 Backache, unspecified 06/18/2006 01/18/2022 PROCTITIS IDIOPATHIC 06/04/2006 01/18/2022 Hemorrhage of gastrointestinal tract, unspecifie d 05/29/2006 01/18/2022 Headache(784.0) 01/21/2006 01/18/2022 documented as of this encounter (statuses as of 07/25/2022) [facility] History of Past illness Narrative* Problem Noted Date Resolved Date COPD with chronic bronchitis 03/31/2019 Screen for colon cancer 08/05/2018 01/18/20 22 Overview: Added automatically from request for surgery [id number] Chronic GERD 02/07/2016 02/07/2016 Special screening for malignant neoplasms, colon 07/26/2015 07/26/2015 GERD (gastroesophageal reflux disease) 5 01/18/2022 ADD (attention deficit disorder) 07/18/2015 01/18/2022 Substance abuse rule out 03/15/2015 022 Herpes 11/30/2014 02/28/2016 Overview: Positive for types 1 and 2. Duodenitis without mention of hemorrhage 012 01/18/2022 Acute gastritis without mention of hemorrhage 01/18/2022 Hyperlipidemia 12/18/2011 01/18/2022 Pain in joint, lower leg 07/13/2007 022 Bipolar disorder, unspecified 02/20/2007 Chest pain, unspecified 01/23/2007 01/18/20 22 Backache, unspecified 06/18/2006 01/18/2022 PROCTITIS IDIOPATHIC 06/04/2006 01/18/2022 Hemorrhage of gastrointestinal tract, unspecifie d 05/29/2006 01/18/2022 Headache(784.0) 01/21/2006 01/18/2022 documented as of this encounter (statuses as of 07/26/2022) [facility] History of Past illness Narrative* Problem Noted Date Resolved Date COPD with chronic bronchitis 03/31/2019 Screen for colon cancer 08/05/2018 01/18/20 22 Overview: Added automatically from request for surgery [id number] Chronic GERD 02/07/2016 02/07/2016 Special screening for malignant neoplasms, colon 07/26/2015 07/26/2015 GERD (gastroesophageal reflux disease) 5 01/18/2022 ADD (attention deficit disorder) 07/18/2015 01/18/2022 Substance abuse rule out 03/15/2015 022 Herpes 11/30/2014 02/28/2016 Overview: Positive for types 1 and 2. Duodenitis without mention of hemorrhage 012 01/18/2022 Acute gastritis without mention of hemorrhage 01/18/2022 Hyperlipidemia 12/18/2011 01/18/2022 Pain in joint, lower leg 07/13/2007 022 Bipolar disorder, unspecified 02/20/2007 Chest pain, unspecified 01/23/2007 01/18/20 22 Backache, unspecified 06/18/2006 01/18/2022 PROCTITIS IDIOPATHIC 06/04/2006 01/18/2022 Hemorrhage of gastrointestinal tract, unspecifie d 05/29/2006 01/18/2022 Headache(784.0) 01/21/2006 01/18/2022 documented as of this encounter (statuses as of 07/31/2022) [facility] History of Past illness Narrative* Problem Noted Date Resolved Date COPD with chronic bronchitis 03/31/2019 Screen for colon cancer 08/05/2018 01/18/20 22 Overview: Added automatically from request for surgery [id number] Chronic GERD 02/07/2016 02/07/2016 Special screening for malignant neoplasms, colon 07/26/2015 07/26/2015 GERD (gastroesophageal reflux disease) 5 01/18/2022 ADD (attention deficit disorder) 07/18/2015 01/18/2022 Substance abuse rule out 03/15/2015 022 Herpes 11/30/2014 02/28/2016 Overview: Positive for types 1 and 2. Duodenitis without mention of hemorrhage 012 01/18/2022 Acute gastritis without mention of hemorrhage 01/18/2022 Hyperlipidemia 12/18/2011 01/18/2022 Pain in joint, lower leg 07/13/2007 022 Bipolar disorder, unspecified 02/20/2007 Chest pain, unspecified 01/23/2007 01/18/20 22 Backache, unspecified 06/18/2006 01/18/2022 PROCTITIS IDIOPATHIC 06/04/2006 01/18/2022 Hemorrhage of gastrointestinal tract, unspecifie d 05/29/2006 01/18/2022 Headache(784.0) 01/21/2006 01/18/2022 documented as of this encounter (statuses as of 08/06/2022) [facility] History of Past illness Narrative* Problem Noted Date Resolved Date COPD with chronic bronchitis 03/31/2019 Screen for colon cancer 08/05/2018 01/18/20 22 Overview: Added automatically from request for surgery [id number] Chronic GERD 02/07/2016 02/07/2016 Special screening for malignant neoplasms, colon 07/26/2015 07/26/2015 GERD (gastroesophageal reflux disease) 5 01/18/2022 ADD (attention deficit disorder) 07/18/2015 01/18/2022 Substance abuse rule out 03/15/2015 022 Herpes 11/30/2014 02/28/2016 Overview: Positive for types 1 and 2. Duodenitis without mention of hemorrhage 012 01/18/2022 Acute gastritis without mention of hemorrhage 01/18/2022 Hyperlipidemia 12/18/2011 01/18/2022 Pain in joint, lower leg 07/13/2007 022 Bipolar disorder, unspecified 02/20/2007 Chest pain, unspecified 01/23/2007 01/18/20 22 Backache, unspecified 06/18/2006 01/18/2022 PROCTITIS IDIOPATHIC 06/04/2006 01/18/2022 Hemorrhage of gastrointestinal tract, unspecifie d 05/29/2006 01/18/2022 Headache(784.0) 01/21/2006 01/18/2022 documented as of this encounter (statuses as of 08/07/2022) [facility] History of Past illness Narrative* Problem Noted Date Resolved Date COPD with chronic bronchitis 03/31/2019 Screen for colon cancer 08/05/2018 01/18/20 22 Overview: Added automatically from request for surgery [id number] Chronic GERD 02/07/2016 02/07/2016 Special screening for malignant neoplasms, colon 07/26/2015 07/26/2015 GERD (gastroesophageal reflux disease) 5 01/18/2022 ADD (attention deficit disorder) 07/18/2015 01/18/2022 Substance abuse rule out 03/15/2015 022 Herpes 11/30/2014 02/28/2016 Overview: Positive for types 1 and 2. Duodenitis without mention of hemorrhage 012 01/18/2022 Acute gastritis without mention of hemorrhage 01/18/2022 Hyperlipidemia 12/18/2011 01/18/2022 Pain in joint, lower leg 07/13/2007 022 Bipolar disorder, unspecified 02/20/2007 Chest pain, unspecified 01/23/2007 01/18/20 22 Backache, unspecified 06/18/2006 01/18/2022 PROCTITIS IDIOPATHIC 06/04/2006 01/18/2022 Hemorrhage of gastrointestinal tract, unspecifie d 05/29/2006 01/18/2022 Headache(784.0) 01/21/2006 01/18/2022 documented as of this encounter (statuses as of 08/13/2022) [facility] History of Past illness Narrative* Problem Noted Date Resolved Date COPD with chronic bronchitis 03/31/2019 Screen for colon cancer 08/05/2018 01/18/20 22 Overview: Added automatically from request for surgery [id number] Chronic GERD 02/07/2016 02/07/2016 Special screening for malignant neoplasms, colon 07/26/2015 07/26/2015 GERD (gastroesophageal reflux disease) 5 01/18/2022 ADD (attention deficit disorder) 07/18/2015 01/18/2022 Substance abuse rule out 03/15/2015 022 Herpes 11/30/2014 02/28/2016 Overview: Positive for types 1 and 2. Duodenitis without mention of hemorrhage 012 01/18/2022 Acute gastritis without mention of hemorrhage 01/18/2022 Hyperlipidemia 12/18/2011 01/18/2022 Pain in joint, lower leg 07/13/2007 022 Bipolar disorder, unspecified 02/20/2007 Chest pain, unspecified 01/23/2007 01/18/20 22 Backache, unspecified 06/18/2006 01/18/2022 PROCTITIS IDIOPATHIC 06/04/2006 01/18/2022 Hemorrhage of gastrointestinal tract, unspecifie d 05/29/2006 01/18/2022 Headache(784.0) 01/21/2006 01/18/2022 documented as of this encounter (statuses as of 08/14/2022) [facility] History of Past illness Narrative* Problem Noted Date Resolved Date COPD with chronic bronchitis 03/31/2019 Screen for colon cancer 08/05/2018 01/18/20 22 Overview: Added automatically from request for surgery [id number] Chronic GERD 02/07/2016 02/07/2016 Special screening for malignant neoplasms, colon 07/26/2015 07/26/2015 GERD (gastroesophageal reflux disease) 5 01/18/2022 ADD (attention deficit disorder) 07/18/2015 01/18/2022 Substance abuse rule out 03/15/2015 022 Herpes 11/30/2014 02/28/2016 Overview: Positive for types 1 and 2. Duodenitis without mention of hemorrhage 012 01/18/2022 Acute gastritis without mention of hemorrhage 01/18/2022 Hyperlipidemia 12/18/2011 01/18/2022 Pain in joint, lower leg 07/13/2007 022 Bipolar disorder, unspecified 02/20/2007 Chest pain, unspecified 01/23/2007 01/18/20 22 Backache, unspecified 06/18/2006 01/18/2022 PROCTITIS IDIOPATHIC 06/04/2006 01/18/2022 Hemorrhage of gastrointestinal tract, unspecifie d 05/29/2006 01/18/2022 Headache(784.0) 01/21/2006 01/18/2022 documented as of this encounter (statuses as of 08/14/2022) [facility] History of Past illness Narrative* Problem Noted Date Resolved Date COPD with chronic bronchitis 03/31/2019 Screen for colon cancer 08/05/2018 01/18/20 22 Overview: Added automatically from request for surgery [id number] Chronic GERD 02/07/2016 02/07/2016 Special screening for malignant neoplasms, colon 07/26/2015 07/26/2015 GERD (gastroesophageal reflux disease) 5 01/18/2022 ADD (attention deficit disorder) 07/18/2015 01/18/2022 Substance abuse rule out 03/15/2015 022 Herpes 11/30/2014 02/28/2016 Overview: Positive for types 1 and 2. Duodenitis without mention of hemorrhage 012 01/18/2022 Acute gastritis without mention of hemorrhage 01/18/2022 Hyperlipidemia 12/18/2011 01/18/2022 Pain in joint, lower leg 07/13/2007 022 Bipolar disorder, unspecified 02/20/2007 Chest pain, unspecified 01/23/2007 01/18/20 22 Backache, unspecified 06/18/2006 01/18/2022 PROCTITIS IDIOPATHIC 06/04/2006 01/18/2022 Hemorrhage of gastrointestinal tract, unspecifie d 05/29/2006 01/18/2022 Headache(784.0) 01/21/2006 01/18/2022 documented as of this encounter (statuses as of 08/15/2022) [facility] History of Past illness Narrative* Problem Noted Date Resolved Date COPD with chronic bronchitis 03/31/2019 Screen for colon cancer 08/05/2018 01/18/20 22 Overview: Added automatically from request for surgery [id number] Chronic GERD 02/07/2016 02/07/2016 Special screening for malignant neoplasms, colon 07/26/2015 07/26/2015 GERD (gastroesophageal reflux disease) 5 01/18/2022 ADD (attention deficit disorder) 07/18/2015 01/18/2022 Substance abuse rule out 03/15/2015 022 Herpes 11/30/2014 02/28/2016 Overview: Positive for types 1 and 2. Duodenitis without mention of hemorrhage 012 01/18/2022 Acute gastritis without mention of hemorrhage 01/18/2022 Hyperlipidemia 12/18/2011 01/18/2022 Pain in joint, lower leg 07/13/2007 022 Bipolar disorder, unspecified 02/20/2007 Chest pain, unspecified 01/23/2007 01/18/20 22 Backache, unspecified 06/18/2006 01/18/2022 PROCTITIS IDIOPATHIC 06/04/2006 01/18/2022 Hemorrhage of gastrointestinal tract, unspecifie d 05/29/2006 01/18/2022 Headache(784.0) 01/21/2006 01/18/2022 documented as of this encounter (statuses as of 08/19/2022) [facility] History of Past illness Narrative* Problem Noted Date Resolved Date COPD with chronic bronchitis 03/31/2019 Screen for colon cancer 08/05/2018 01/18/20 22 Overview: Added automatically from request for surgery [id number] Chronic GERD 02/07/2016 02/07/2016 Special screening for malignant neoplasms, colon 07/26/2015 07/26/2015 GERD (gastroesophageal reflux disease) 5 01/18/2022 ADD (attention deficit disorder) 07/18/2015 01/18/2022 Substance abuse rule out 03/15/2015 022 Herpes 11/30/2014 02/28/2016 Overview: Positive for types 1 and 2. Duodenitis without mention of hemorrhage 012 01/18/2022 Acute gastritis without mention of hemorrhage 01/18/2022 Hyperlipidemia 12/18/2011 01/18/2022 Pain in joint, lower leg 07/13/2007 022 Bipolar disorder, unspecified 02/20/2007 Chest pain, unspecified 01/23/2007 01/18/20 22 Backache, unspecified 06/18/2006 01/18/2022 PROCTITIS IDIOPATHIC 06/04/2006 01/18/2022 Hemorrhage of gastrointestinal tract, unspecifie d 05/29/2006 01/18/2022 Headache(784.0) 01/21/2006 01/18/2022 documented as of this encounter (statuses as of 08/23/2022) [facility] History of Past illness Narrative* Problem Noted Date Resolved Date COPD with chronic bronchitis 03/31/2019 Screen for colon cancer 08/05/2018 01/18/20 22 Overview: Added automatically from request for surgery [id number] Chronic GERD 02/07/2016 02/07/2016 Special screening for malignant neoplasms, colon 07/26/2015 07/26/2015 GERD (gastroesophageal reflux disease) 5 01/18/2022 ADD (attention deficit disorder) 07/18/2015 01/18/2022 Substance abuse rule out 03/15/2015 022 Herpes 11/30/2014 02/28/2016 Overview: Positive for types 1 and 2. Duodenitis without mention of hemorrhage 012 01/18/2022 Acute gastritis without mention of hemorrhage 01/18/2022 Hyperlipidemia 12/18/2011 01/18/2022 Pain in joint, lower leg 07/13/2007 022 Bipolar disorder, unspecified 02/20/2007 Chest pain, unspecified 01/23/2007 01/18/20 22 Backache, unspecified 06/18/2006 01/18/2022 PROCTITIS IDIOPATHIC 06/04/2006 01/18/2022 Hemorrhage of gastrointestinal tract, unspecifie d 05/29/2006 01/18/2022 Headache(784.0) 01/21/2006 01/18/2022 documented as of this encounter (statuses as of 08/28/2022) [facility] History of Past illness Narrative* Problem Noted Date Resolved Date COPD with chronic bronchitis 03/31/2019 Screen for colon cancer 08/05/2018 01/18/20 22 Overview: Added automatically from request for surgery [id number] Chronic GERD 02/07/2016 02/07/2016 Special screening for malignant neoplasms, colon 07/26/2015 07/26/2015 GERD (gastroesophageal reflux disease) 5 01/18/2022 ADD (attention deficit disorder) 07/18/2015 01/18/2022 Substance abuse rule out 03/15/2015 022 Herpes 11/30/2014 02/28/2016 Overview: Positive for types 1 and 2. Duodenitis without mention of hemorrhage 012 01/18/2022 Acute gastritis without mention of hemorrhage 01/18/2022 Hyperlipidemia 12/18/2011 01/18/2022 Pain in joint, lower leg 07/13/2007 022 Bipolar disorder, unspecified 02/20/2007 Chest pain, unspecified 01/23/2007 01/18/20 22 Backache, unspecified 06/18/2006 01/18/2022 PROCTITIS IDIOPATHIC 06/04/2006 01/18/2022 Hemorrhage of gastrointestinal tract, unspecifie d 05/29/2006 01/18/2022 Headache(784.0) 01/21/2006 01/18/2022 documented as of this encounter (statuses as of 09/02/2022) [facility] of Past illness Narrative* Problem Noted Date Resolved Date COPD with chronic bronchitis 03/31/2019 Screen for colon cancer 08/05/2018 01/18/20 22 Overview: Added automatically from request for surgery [id number] Chronic GERD 02/07/2016 02/07/2016 Special screening for malignant neoplasms, colon 07/26/2015 07/26/2015 GERD (gastroesophageal reflux disease) 5 01/18/2022 ADD (attention deficit disorder) 07/18/2015 01/18/2022 Substance abuse rule out 03/15/2015 022 Herpes 11/30/2014 02/28/2016 Overview: Positive for types 1 and 2. Duodenitis without mention of hemorrhage 012 01/18/2022 Acute gastritis without mention of hemorrhage 01/18/2022 Hyperlipidemia 12/18/2011 01/18/2022 Pain in joint, lower leg 07/13/2007 022 Bipolar disorder, unspecified 02/20/2007 Chest pain, unspecified 01/23/2007 01/18/20 22 Backache, unspecified 06/18/2006 01/18/2022 PROCTITIS IDIOPATHIC 06/04/2006 01/18/2022 Hemorrhage of gastrointestinal tract, unspecifie d 05/29/2006 01/18/2022 Headache(784.0) 01/21/2006 01/18/2022 documented as of this encounter (statuses as of 09/03/2022) [facility] of Past illness Narrative* Problem Noted Date Resolved Date COPD with chronic bronchitis 03/31/2019 Screen for colon cancer 08/05/2018 01/18/20 22 Overview: Added automatically from request for surgery [id number] Chronic GERD 02/07/2016 02/07/2016 Special screening for malignant neoplasms, colon 07/26/2015 07/26/2015 GERD (gastroesophageal reflux disease) 5 01/18/2022 ADD (attention deficit disorder) 07/18/2015 01/18/2022 Substance abuse rule out 03/15/2015 022 Herpes 11/30/2014 02/28/2016 Overview: Positive for types 1 and 2. Duodenitis without mention of hemorrhage 012 01/18/2022 Acute gastritis without mention of hemorrhage 01/18/2022 Hyperlipidemia 12/18/2011 01/18/2022 Pain in joint, lower leg 07/13/2007 022 Bipolar disorder, unspecified 02/20/2007 Chest pain, unspecified 01/23/2007 01/18/20 22 Backache, unspecified 06/18/2006 01/18/2022 PROCTITIS IDIOPATHIC 06/04/2006 01/18/2022 Hemorrhage of gastrointestinal tract, unspecifie d 05/29/2006 01/18/2022 Headache(784.0) 01/21/2006 01/18/2022 documented as of this encounter (statuses as of 09/09/2022) [facility] of Past illness Narrative* Problem Noted Date Resolved Date COPD with chronic bronchitis 03/31/2019 Screen for colon cancer 08/05/2018 01/18/20 22 Overview: Added automatically from request for surgery [id number] Chronic GERD 02/07/2016 02/07/2016 Special screening for malignant neoplasms, colon 07/26/2015 07/26/2015 GERD (gastroesophageal reflux disease) 5 01/18/2022 ADD (attention deficit disorder) 07/18/2015 01/18/2022 Substance abuse rule out 03/15/2015 022 Herpes 11/30/2014 02/28/2016 Overview: Positive for types 1 and 2. Duodenitis without mention of hemorrhage 012 01/18/2022 Acute gastritis without mention of hemorrhage 01/18/2022 Hyperlipidemia 12/18/2011 01/18/2022 Pain in joint, lower leg 07/13/2007 022 Bipolar disorder, unspecified 02/20/2007 Chest pain, unspecified 01/23/2007 01/18/20 22 Backache, unspecified 06/18/2006 01/18/2022 PROCTITIS IDIOPATHIC 06/04/2006 01/18/2022 Hemorrhage of gastrointestinal tract, unspecifie d 05/29/2006 01/18/2022 Headache(784.0) 01/21/2006 01/18/2022 documented as of this encounter (statuses as of 09/16/2022) [facility] of Past illness Narrative* Problem Noted Date Resolved Date COPD with chronic bronchitis 03/31/2019 Screen for colon cancer 08/05/2018 01/18/20 22 Overview: Added automatically from request for surgery [id number] Chronic GERD 02/07/2016 02/07/2016 Special screening for malignant neoplasms, colon 07/26/2015 07/26/2015 GERD (gastroesophageal reflux disease) 5 01/18/2022 ADD (attention deficit disorder) 07/18/2015 01/18/2022 Substance abuse rule out 03/15/2015 022 Herpes 11/30/2014 02/28/2016 Overview: Positive for types 1 and 2. Duodenitis without mention of hemorrhage 012 01/18/2022 Acute gastritis without mention of hemorrhage 01/18/2022 Hyperlipidemia 12/18/2011 01/18/2022 Pain in joint, lower leg 07/13/2007 022 Bipolar disorder, unspecified 02/20/2007 Chest pain, unspecified 01/23/2007 01/18/20 22 Backache, unspecified 06/18/2006 01/18/2022 PROCTITIS IDIOPATHIC 06/04/2006 01/18/2022 Hemorrhage of gastrointestinal tract, unspecifie d 05/29/2006 01/18/2022 Headache(784.0) 01/21/2006 01/18/2022 documented as of this encounter (statuses as of 09/20/2022) [facility] of Past illness Narrative* Problem Noted Date Resolved Date COPD with chronic bronchitis 03/31/2019 Screen for colon cancer 08/05/2018 01/18/20 22 Overview: Added automatically from request for surgery [id number] Chronic GERD 02/07/2016 02/07/2016 Special screening for malignant neoplasms, colon 07/26/2015 07/26/2015 GERD (gastroesophageal reflux disease) 5 01/18/2022 ADD (attention deficit disorder) 07/18/2015 01/18/2022 Substance abuse rule out 03/15/2015 022 Herpes 11/30/2014 02/28/2016 Overview: Positive for types 1 and 2. Duodenitis without mention of hemorrhage 012 01/18/2022 Acute gastritis without mention of hemorrhage 01/18/2022 Hyperlipidemia 12/18/2011 01/18/2022 Pain in joint, lower leg 07/13/2007 022 Bipolar disorder, unspecified 02/20/2007 Chest pain, unspecified 01/23/2007 01/18/20 22 Backache, unspecified 06/18/2006 01/18/2022 PROCTITIS IDIOPATHIC 06/04/2006 01/18/2022 Hemorrhage of gastrointestinal tract, unspecifie d 05/29/2006 01/18/2022 Headache(784.0) 01/21/2006 01/18/2022 documented as of this encounter (statuses as of 09/25/2022) [facility] of Past illness Narrative* Problem Noted Date Resolved Date COPD with chronic bronchitis 03/31/2019 Screen for colon cancer 08/05/2018 01/18/20 22 Overview: Added automatically from request for surgery [id number] Chronic GERD 02/07/2016 02/07/2016 Special screening for malignant neoplasms, colon 07/26/2015 07/26/2015 GERD (gastroesophageal reflux disease) 5 01/18/2022 ADD (attention deficit disorder) 07/18/2015 01/18/2022 Substance abuse rule out 03/15/2015 022 Herpes 11/30/2014 02/28/2016 Overview: Positive for types 1 and 2. Duodenitis without mention of hemorrhage 012 01/18/2022 Acute gastritis without mention of hemorrhage 01/18/2022 Hyperlipidemia 12/18/2011 01/18/2022 Pain in joint, lower leg 07/13/2007 022 Bipolar disorder, unspecified 02/20/2007 Chest pain, unspecified 01/23/2007 01/18/20 22 Backache, unspecified 06/18/2006 01/18/2022 PROCTITIS IDIOPATHIC 06/04/2006 01/18/2022 Hemorrhage of gastrointestinal tract, unspecifie d 05/29/2006 01/18/2022 Headache(784.0) 01/21/2006 01/18/2022 documented as of this encounter (statuses as of 10/03/2022) [facility] Past illness Narrative* Problem Noted Date Resolved Date COPD with chronic bronchitis 03/31/2019 Screen for colon cancer 08/05/2018 01/18/20 22 Overview: Added automatically from request for surgery [id number] Chronic GERD 02/07/2016 02/07/2016 Special screening for malignant neoplasms, colon 07/26/2015 07/26/2015 GERD (gastroesophageal reflux disease) 5 01/18/2022 ADD (attention deficit disorder) 07/18/2015 01/18/2022 Substance abuse rule out 03/15/2015 022 Herpes 11/30/2014 02/28/2016 Overview: Positive for types 1 and 2. Duodenitis without mention of hemorrhage 012 01/18/2022 Acute gastritis without mention of hemorrhage 01/18/2022 Hyperlipidemia 12/18/2011 01/18/2022 Pain in joint, lower leg 07/13/2007 022 Bipolar disorder, unspecified 02/20/2007 Chest pain, unspecified 01/23/2007 01/18/20 22 Backache, unspecified 06/18/2006 01/18/2022 PROCTITIS IDIOPATHIC 06/04/2006 01/18/2022 Hemorrhage of gastrointestinal tract, unspecifie d 05/29/2006 01/18/2022 Headache(784.0) 01/21/2006 01/18/2022 documented as of this encounter (statuses as of 10/04/2022) [facility] History of Past illness Narrative* Problem Noted Date Resolved Date COPD with chronic bronchitis 03/31/2019 Screen for colon cancer 08/05/2018 01/18/20 22 Overview: Added automatically from request for surgery [id number] Chronic GERD 02/07/2016 02/07/2016 Special screening for malignant neoplasms, colon 07/26/2015 07/26/2015 GERD (gastroesophageal reflux disease) 5 01/18/2022 ADD (attention deficit disorder) 07/18/2015 01/18/2022 Substance abuse rule out 03/15/2015 022 Herpes 11/30/2014 02/28/2016 Overview: Positive for types 1 and 2. Duodenitis without mention of hemorrhage 012 01/18/2022 Acute gastritis without mention of hemorrhage 01/18/2022 Hyperlipidemia 12/18/2011 01/18/2022 Pain in joint, lower leg 07/13/2007 022 Bipolar disorder, unspecified 02/20/2007 Chest pain, unspecified 01/23/2007 01/18/20 22 Backache, unspecified 06/18/2006 01/18/2022 PROCTITIS IDIOPATHIC 06/04/2006 01/18/2022 Hemorrhage of gastrointestinal tract, unspecifie d 05/29/2006 01/18/2022 Headache(784.0) 01/21/2006 01/18/2022 documented as of this encounter (statuses as of 10/10/2022) [facility] History of Past illness Narrative* Problem Noted Date Resolved Date COPD with chronic bronchitis 03/31/2019 Screen for colon cancer 08/05/2018 01/18/20 22 Overview: Added automatically from request for surgery [id number] Chronic GERD 02/07/2016 02/07/2016 Special screening for malignant neoplasms, colon 07/26/2015 07/26/2015 GERD (gastroesophageal reflux disease) 5 01/18/2022 ADD (attention deficit disorder) 07/18/2015 01/18/2022 Substance abuse rule out 03/15/2015 022 Herpes 11/30/2014 02/28/2016 Overview: Positive for types 1 and 2. Duodenitis without mention of hemorrhage 012 01/18/2022 Acute gastritis without mention of hemorrhage 01/18/2022 Hyperlipidemia 12/18/2011 01/18/2022 Pain in joint, lower leg 07/13/2007 022 Bipolar disorder, unspecified 02/20/2007 Chest pain, unspecified 01/23/2007 01/18/20 22 Backache, unspecified 06/18/2006 01/18/2022 PROCTITIS IDIOPATHIC 06/04/2006 01/18/2022 Hemorrhage of gastrointestinal tract, unspecifie d 05/29/2006 01/18/2022 Headache(784.0) 01/21/2006 01/18/2022 documented as of this encounter (statuses as of 10/14/2022) [facility] History of Past illness Narrative* Problem Noted Date Resolved Date COPD with chronic bronchitis 03/31/2019 Screen for colon cancer 08/05/2018 01/18/20 22 Overview: Added automatically from request for surgery [id number] Chronic GERD 02/07/2016 02/07/2016 Special screening for malignant neoplasms, colon 07/26/2015 07/26/2015 GERD (gastroesophageal reflux disease) 5 01/18/2022 ADD (attention deficit disorder) 07/18/2015 01/18/2022 Substance abuse rule out 03/15/2015 022 Herpes 11/30/2014 02/28/2016 Overview: Positive for types 1 and 2. Duodenitis without mention of hemorrhage 012 01/18/2022 Acute gastritis without mention of hemorrhage 01/18/2022 Hyperlipidemia 12/18/2011 01/18/2022 Pain in joint, lower leg 07/13/2007 022 Bipolar disorder, unspecified 02/20/2007 Chest pain, unspecified 01/23/2007 01/18/20 22 Backache, unspecified 06/18/2006 01/18/2022 PROCTITIS IDIOPATHIC 06/04/2006 01/18/2022 Hemorrhage of gastrointestinal tract, unspecifie d 05/29/2006 01/18/2022 Headache(784.0) 01/21/2006 01/18/2022 documented as of this encounter (statuses as of 10/16/2022) [facility] History of Past illness Narrative* Problem Noted Date Resolved Date COPD with chronic bronchitis 03/31/2019 Screen for colon cancer 08/05/2018 01/18/20 22 Overview: Added automatically from request for surgery [id number] Chronic GERD 02/07/2016 02/07/2016 Special screening for malignant neoplasms, colon 07/26/2015 07/26/2015 GERD (gastroesophageal reflux disease) 5 01/18/2022 ADD (attention deficit disorder) 07/18/2015 01/18/2022 Substance abuse rule out 03/15/2015 022 Herpes 11/30/2014 02/28/2016 Overview: Positive for types 1 and 2. Duodenitis without mention of hemorrhage 012 01/18/2022 Acute gastritis without mention of hemorrhage 01/18/2022 Hyperlipidemia 12/18/2011 01/18/2022 Pain in joint, lower leg 07/13/2007 022 Bipolar disorder, unspecified 02/20/2007 Chest pain, unspecified 01/23/2007 01/18/20 22 Backache, unspecified 06/18/2006 01/18/2022 PROCTITIS IDIOPATHIC 06/04/2006 01/18/2022 Hemorrhage of gastrointestinal tract, unspecifie d 05/29/2006 01/18/2022 Headache(784.0) 01/21/2006 01/18/2022 documented as of this encounter (statuses as of 10/22/2022) [facility] History of Past illness Narrative* Problem Noted Date Resolved Date COPD with chronic bronchitis 03/31/2019 Screen for colon cancer 08/05/2018 01/18/20 22 Overview: Added automatically from request for surgery [id number] Chronic GERD 02/07/2016 02/07/2016 Special screening for malignant neoplasms, colon 07/26/2015 07/26/2015 GERD (gastroesophageal reflux disease) 5 01/18/2022 ADD (attention deficit disorder) 07/18/2015 01/18/2022 Substance abuse rule out 03/15/2015 022 Herpes 11/30/2014 02/28/2016 Overview: Positive for types 1 and 2. Duodenitis without mention of hemorrhage 012 01/18/2022 Acute gastritis without mention of hemorrhage 01/18/2022 Hyperlipidemia 12/18/2011 01/18/2022 Pain in joint, lower leg 07/13/2007 022 Bipolar disorder, unspecified 02/20/2007 Chest pain, unspecified 01/23/2007 01/18/20 22 Backache, unspecified 06/18/2006 01/18/2022 PROCTITIS IDIOPATHIC 06/04/2006 01/18/2022 Hemorrhage of gastrointestinal tract, unspecifie d 05/29/2006 01/18/2022 Headache(784.0) 01/21/2006 01/18/2022 documented as of this encounter (statuses as of 10/23/2022) [facility] History of Past illness Narrative* Problem Noted Date Resolved Date COPD with chronic bronchitis 03/31/2019 Screen for colon cancer 08/05/2018 01/18/20 22 Overview: Added automatically from request for surgery [id number] Chronic GERD 02/07/2016 02/07/2016 Special screening for malignant neoplasms, colon 07/26/2015 07/26/2015 GERD (gastroesophageal reflux disease) 5 01/18/2022 ADD (attention deficit disorder) 07/18/2015 01/18/2022 Substance abuse rule out 03/15/2015 022 Herpes 11/30/2014 02/28/2016 Overview: Positive for types 1 and 2. Duodenitis without mention of hemorrhage 012 01/18/2022 Acute gastritis without mention of hemorrhage 01/18/2022 Hyperlipidemia 12/18/2011 01/18/2022 Pain in joint, lower leg 07/13/2007 022 Bipolar disorder, unspecified 02/20/2007 Chest pain, unspecified 01/23/2007 01/18/20 22 Backache, unspecified 06/18/2006 01/18/2022 PROCTITIS IDIOPATHIC 06/04/2006 01/18/2022 Hemorrhage of gastrointestinal tract, unspecifie d 05/29/2006 01/18/2022 Headache(784.0) 01/21/2006 01/18/2022 documented as of this encounter (statuses as of 11/12/2022) [facility] History of Past illness Narrative* Problem Noted Date Resolved Date COPD with chronic bronchitis 03/31/2019 Screen for colon cancer 08/05/2018 01/18/20 22 Overview: Added automatically from request for surgery [id number] Chronic GERD 02/07/2016 02/07/2016 Special screening for malignant neoplasms, colon 07/26/2015 07/26/2015 GERD (gastroesophageal reflux disease) 5 01/18/2022 ADD (attention deficit disorder) 07/18/2015 01/18/2022 Substance abuse rule out 03/15/2015 022 Herpes 11/30/2014 02/28/2016 Overview: Positive for types 1 and 2. Duodenitis without mention of hemorrhage 012 01/18/2022 Acute gastritis without mention of hemorrhage 01/18/2022 Hyperlipidemia 12/18/2011 01/18/2022 Pain in joint, lower leg 07/13/2007 022 Bipolar disorder, unspecified 02/20/2007 Chest pain, unspecified 01/23/2007 01/18/20 22 Backache, unspecified 06/18/2006 01/18/2022 PROCTITIS IDIOPATHIC 06/04/2006 01/18/2022 Hemorrhage of gastrointestinal tract, unspecifie d 05/29/2006 01/18/2022 Headache(784.0) 01/21/2006 01/18/2022 documented as of this encounter (statuses as of 11/19/2022) [facility] History of Past illness Narrative* Problem Noted Date Resolved Date COPD with chronic bronchitis 03/31/2019 Screen for colon cancer 08/05/2018 01/18/20 22 Overview: Added automatically from request for surgery [id number] Chronic GERD 02/07/2016 02/07/2016 Special screening for malignant neoplasms, colon 07/26/2015 07/26/2015 GERD (gastroesophageal reflux disease) 5 01/18/2022 ADD (attention deficit disorder) 07/18/2015 01/18/2022 Substance abuse rule out 03/15/2015 022 Herpes 11/30/2014 02/28/2016 Overview: Positive for types 1 and 2. Duodenitis without mention of hemorrhage 012 01/18/2022 Acute gastritis without mention of hemorrhage 01/18/2022 Hyperlipidemia 12/18/2011 01/18/2022 Pain in joint, lower leg 07/13/2007 022 Bipolar disorder, unspecified 02/20/2007 Chest pain, unspecified 01/23/2007 01/18/20 22 Backache, unspecified 06/18/2006 01/18/2022 PROCTITIS IDIOPATHIC 06/04/2006 01/18/2022 Hemorrhage of gastrointestinal tract, unspecifie d 05/29/2006 01/18/2022 Headache(784.0) 01/21/2006 01/18/2022 documented as of this encounter (statuses as of 11/20/2022) [facility] History of Past illness Narrative* Problem Noted Date Resolved Date COPD with chronic bronchitis 03/31/2019 Screen for colon cancer 08/05/2018 01/18/20 22 Overview: Added automatically from request for surgery [id number] Chronic GERD 02/07/2016 02/07/2016 Special screening for malignant neoplasms, colon 07/26/2015 07/26/2015 GERD (gastroesophageal reflux disease) 5 01/18/2022 ADD (attention deficit disorder) 07/18/2015 01/18/2022 Substance abuse rule out 03/15/2015 022 Herpes 11/30/2014 02/28/2016 Overview: Positive for types 1 and 2. Duodenitis without mention of hemorrhage 012 01/18/2022 Acute gastritis without mention of hemorrhage 01/18/2022 Hyperlipidemia 12/18/2011 01/18/2022 Pain in joint, lower leg 07/13/2007 02/18/2 022 Bipolar disorder, unspecified 02/20/2007 Chest pain, unspecified 01/23/2007 01/18/20 22 Backache, unspecified 06/18/2006 01/18/2022 PROCTITIS IDIOPATHIC 06/04/2006 01/18/2022 Hemorrhage of gastrointestinal tract, unspecifie d 05/29/2006 01/18/2022 Headache(784.0) 01/21/2006 01/18/2022 documented as of this encounter (statuses as of 11/21/2022) [facility] History of Past illness Narrative* Problem Noted Date Resolved Date COPD with chronic bronchitis 03/31/2019 Screen for colon cancer 08/05/2018 01/18/20 22 Overview: Added automatically from request for surgery [id number] Chronic GERD 02/07/2016 02/07/2016 Special screening for malignant neoplasms, colon 07/26/2015 07/26/2015 GERD (gastroesophageal reflux disease) 5 01/18/2022 ADD (attention deficit disorder) 07/18/2015 01/18/2022 Substance abuse rule out 03/15/2015 022 Herpes 11/30/2014 02/28/2016 Overview: Positive for types 1 and 2. Duodenitis without mention of hemorrhage 012 01/18/2022 Acute gastritis without mention of hemorrhage 01/18/2022 Hyperlipidemia 12/18/2011 01/18/2022 Pain in joint, lower leg 07/13/2007 022 Bipolar disorder, unspecified 02/20/2007 Chest pain, unspecified 01/23/2007 01/18/20 22 Backache, unspecified 06/18/2006 01/18/2022 PROCTITIS IDIOPATHIC 06/04/2006 01/18/2022 Hemorrhage of gastrointestinal tract, unspecifie d 05/29/2006 01/18/2022 Headache(784.0) 01/21/2006 01/18/2022 documented as of this encounter (statuses as of 11/24/2022) [facility] History of Past illness Narrative* Problem Noted Date Resolved Date COPD with chronic bronchitis 03/31/2019 Screen for colon cancer 08/05/2018 01/18/20 22 Overview: Added automatically from request for surgery [id number] Chronic GERD 02/07/2016 02/07/2016 Special screening for malignant neoplasms, colon 07/26/2015 07/26/2015 GERD (gastroesophageal reflux disease) 5 01/18/2022 ADD (attention deficit disorder) 07/18/2015 01/18/2022 Substance abuse rule out 03/15/2015 022 Herpes 11/30/2014 02/28/2016 Overview: Positive for types 1 and 2. Duodenitis without mention of hemorrhage 012 01/18/2022 Acute gastritis without mention of hemorrhage 01/18/2022 Hyperlipidemia 12/18/2011 01/18/2022 Pain in joint, lower leg 07/13/2007 022 Bipolar disorder, unspecified 02/20/2007 Chest pain, unspecified 01/23/2007 01/18/20 22 Backache, unspecified 06/18/2006 01/18/2022 PROCTITIS IDIOPATHIC 06/04/2006 01/18/2022 Hemorrhage of gastrointestinal tract, unspecifie d 05/29/2006 01/18/2022 Headache(784.0) 01/21/2006 01/18/2022 documented as of this encounter (statuses as of 12/06/2022) [facility] History of Past illness Narrative* Problem Noted Date Resolved Date COPD with chronic bronchitis 03/31/2019 Screen for colon cancer 08/05/2018 01/18/20 22 Overview: Added automatically from request for surgery [id number] Chronic GERD 02/07/2016 02/07/2016 Special screening for malignant neoplasms, colon 07/26/2015 07/26/2015 GERD (gastroesophageal reflux disease) 5 01/18/2022 ADD (attention deficit disorder) 07/18/2015 01/18/2022 Substance abuse rule out 03/15/2015 022 Herpes 11/30/2014 02/28/2016 Overview: Positive for types 1 and 2. Duodenitis without mention of hemorrhage 012 01/18/2022 Acute gastritis without mention of hemorrhage 01/18/2022 Hyperlipidemia 12/18/2011 01/18/2022 Pain in joint, lower leg 07/13/2007 022 Bipolar disorder, unspecified 02/20/2007 Chest pain, unspecified 01/23/2007 01/18/20 22 Backache, unspecified 06/18/2006 01/18/2022 PROCTITIS IDIOPATHIC 06/04/2006 01/18/2022 Hemorrhage of gastrointestinal tract, unspecifie d 05/29/2006 01/18/2022 Headache(784.0) 01/21/2006 01/18/2022 documented as of this encounter (statuses as of 12/06/2022) [facility] History of Past illness Narrative* Problem Noted Date Resolved Date COPD with chronic bronchitis 03/31/2019 Screen for colon cancer 08/05/2018 01/18/20 22 Overview: Added automatically from request for surgery [id number] Chronic GERD 02/07/2016 02/07/2016 Special screening for malignant neoplasms, colon 07/26/2015 07/26/2015 GERD (gastroesophageal reflux disease) 5 01/18/2022 ADD (attention deficit disorder) 07/18/2015 01/18/2022 Substance abuse rule out 03/15/2015 022 Herpes 11/30/2014 02/28/2016 Overview: Positive for types 1 and 2. Duodenitis without mention of hemorrhage 012 01/18/2022 Acute gastritis without mention of hemorrhage 01/18/2022 Hyperlipidemia 12/18/2011 01/18/2022 Pain in joint, lower leg 07/13/2007 022 Bipolar disorder, unspecified 02/20/2007 Chest pain, unspecified 01/23/2007 01/18/20 22 Backache, unspecified 06/18/2006 01/18/2022 PROCTITIS IDIOPATHIC 06/04/2006 01/18/2022 Hemorrhage of gastrointestinal tract, unspecifie d 05/29/2006 01/18/2022 Headache(784.0) 01/21/2006 01/18/2022 documented as of this encounter (statuses as of 12/07/2022) [facility] History of Past illness Narrative* Problem Noted Date Resolved Date COPD with chronic bronchitis 03/31/2019 Screen for colon cancer 08/05/2018 01/18/20 22 Overview: Added automatically from request for surgery [id number] Chronic GERD 02/07/2016 02/07/2016 Special screening for malignant neoplasms, colon 07/26/2015 07/26/2015 GERD (gastroesophageal reflux disease) 5 01/18/2022 ADD (attention deficit disorder) 07/18/2015 01/18/2022 Substance abuse rule out 03/15/2015 022 Herpes 11/30/2014 02/28/2016 Overview: Positive for types 1 and 2. Duodenitis without mention of hemorrhage 012 01/18/2022 Acute gastritis without mention of hemorrhage 01/18/2022 Hyperlipidemia 12/18/2011 01/18/2022 Pain in joint, lower leg 07/13/2007 022 Bipolar disorder, unspecified 02/20/2007 Chest pain, unspecified 01/23/2007 01/18/20 22 Backache, unspecified 06/18/2006 01/18/2022 PROCTITIS IDIOPATHIC 06/04/2006 01/18/2022 Hemorrhage of gastrointestinal tract, unspecifie d 05/29/2006 01/18/2022 Headache(784.0) 01/21/2006 01/18/2022 documented as of this encounter (statuses as of 12/12/2022) [facility] History of Past illness Narrative* Problem Noted Date Resolved Date COPD with chronic bronchitis 03/31/2019 Screen for colon cancer 08/05/2018 01/18/20 22 Overview: Added automatically from request for surgery [id number] Chronic GERD 02/07/2016 02/07/2016 Special screening for malignant neoplasms, colon 07/26/2015 07/26/2015 GERD (gastroesophageal reflux disease) 5 01/18/2022 ADD (attention deficit disorder) 07/18/2015 01/18/2022 Substance abuse rule out 03/15/2015 022 Herpes 11/30/2014 02/28/2016 Overview: Positive for types 1 and 2. Duodenitis without mention of hemorrhage 012 01/18/2022 Acute gastritis without mention of hemorrhage 01/18/2022 Hyperlipidemia 12/18/2011 01/18/2022 Pain in joint, lower leg 07/13/2007 022 Bipolar disorder, unspecified 02/20/2007 Chest pain, unspecified 01/23/2007 01/18/20 22 Backache, unspecified 06/18/2006 01/18/2022 PROCTITIS IDIOPATHIC 06/04/2006 01/18/2022 Hemorrhage of gastrointestinal tract, unspecifie d 05/29/2006 01/18/2022 Headache(784.0) 01/21/2006 01/18/2022 documented as of this encounter (statuses as of 12/14/2022) [facility] of Past illness Narrative* Problem Noted Date Resolved Date COPD with chronic bronchitis 03/31/2019 Screen for colon cancer 08/05/2018 01/18/20 22 Overview: Added automatically from request for surgery [id number] Chronic GERD 02/07/2016 02/07/2016 Special screening for malignant neoplasms, colon 07/26/2015 07/26/2015 GERD (gastroesophageal reflux disease) 5 01/18/2022 ADD (attention deficit disorder) 07/18/2015 01/18/2022 Substance abuse rule out 03/15/2015 022 Herpes 11/30/2014 02/28/2016 Overview: Positive for types 1 and 2. Duodenitis without mention of hemorrhage 012 01/18/2022 Acute gastritis without mention of hemorrhage 01/18/2022 Hyperlipidemia 12/18/2011 01/18/2022 Pain in joint, lower leg 07/13/2007 022 Bipolar disorder, unspecified 02/20/2007 Chest pain, unspecified 01/23/2007 01/18/20 22 Backache, unspecified 06/18/2006 01/18/2022 PROCTITIS IDIOPATHIC 06/04/2006 01/18/2022 Hemorrhage of gastrointestinal tract, unspecifie d 05/29/2006 01/18/2022 Headache(784.0) 01/21/2006 01/18/2022 documented as of this encounter (statuses as of 12/18/2022) [facility] History of Past illness Narrative* Problem Noted Date Resolved Date COPD with chronic bronchitis 03/31/2019 Screen for colon cancer 08/05/2018 01/18/20 22 Overview: Added automatically from request for surgery [id number] Chronic GERD 02/07/2016 02/07/2016 Special screening for malignant neoplasms, colon 07/26/2015 07/26/2015 GERD (gastroesophageal reflux disease) 5 01/18/2022 ADD (attention deficit disorder) 07/18/2015 01/18/2022 Substance abuse rule out 03/15/2015 022 Herpes 11/30/2014 02/28/2016 Overview: Positive for types 1 and 2. Duodenitis without mention of hemorrhage 012 01/18/2022 Acute gastritis without mention of hemorrhage 01/18/2022 Hyperlipidemia 12/18/2011 01/18/2022 Pain in joint, lower leg 07/13/2007 022 Bipolar disorder, unspecified 02/20/2007 Chest pain, unspecified 01/23/2007 01/18/20 22 Backache, unspecified 06/18/2006 01/18/2022 PROCTITIS IDIOPATHIC 06/04/2006 01/18/2022 Hemorrhage of gastrointestinal tract, unspecifie d 05/29/2006 01/18/2022 Headache(784.0) 01/21/2006 01/18/2022 documented as of this encounter (statuses as of 12/20/2022) [facility] of Past illness Narrative* Problem Noted Date Resolved Date COPD with chronic bronchitis 03/31/2019 Screen for colon cancer 08/05/2018 01/18/20 22 Overview: Added automatically from request for surgery [id number] Chronic GERD 02/07/2016 02/07/2016 Special screening for malignant neoplasms, colon 07/26/2015 07/26/2015 GERD (gastroesophageal reflux disease) 5 01/18/2022 ADD (attention deficit disorder) 07/18/2015 01/18/2022 Substance abuse rule out 03/15/2015 022 Herpes 11/30/2014 02/28/2016 Overview: Positive for types 1 and 2. Duodenitis without mention of hemorrhage 012 01/18/2022 Acute gastritis without mention of hemorrhage 01/18/2022 Hyperlipidemia 12/18/2011 01/18/2022 Pain in joint, lower leg 07/13/2007 022 Bipolar disorder, unspecified 02/20/2007 Chest pain, unspecified 01/23/2007 01/18/20 22 Backache, unspecified 06/18/2006 01/18/2022 PROCTITIS IDIOPATHIC 06/04/2006 01/18/2022 Hemorrhage of gastrointestinal tract, unspecifie d 05/29/2006 01/18/2022 Headache(784.0) 01/21/2006 01/18/2022 documented as of this encounter (statuses as of 12/24/2022) [facility] of Past illness Narrative* Problem Noted Date Resolved Date COPD with chronic bronchitis 03/31/2019 Screen for colon cancer 08/05/2018 01/18/20 22 Overview: Added automatically from request for surgery [id number] Chronic GERD 02/07/2016 02/07/2016 Special screening for malignant neoplasms, colon 07/26/2015 07/26/2015 GERD (gastroesophageal reflux disease) 5 01/18/2022 ADD (attention deficit disorder) 07/18/2015 01/18/2022 Substance abuse rule out 03/15/2015 022 Herpes 11/30/2014 02/28/2016 Overview: Positive for types 1 and 2. Duodenitis without mention of hemorrhage 012 01/18/2022 Acute gastritis without mention of hemorrhage 01/18/2022 Hyperlipidemia 12/18/2011 01/18/2022 Pain in joint, lower leg 07/13/2007 022 Bipolar disorder, unspecified 02/20/2007 Chest pain, unspecified 01/23/2007 01/18/20 22 Backache, unspecified 06/18/2006 01/18/2022 PROCTITIS IDIOPATHIC 06/04/2006 01/18/2022 Hemorrhage of gastrointestinal tract, unspecifie d 05/29/2006 01/18/2022 Headache(784.0) 01/21/2006 01/18/2022 documented as of this encounter (statuses as of 12/25/2022) [facility] of Past illness Narrative* Problem Noted Date Resolved Date COPD with chronic bronchitis 03/31/2019 Screen for colon cancer 08/05/2018 01/18/20 22 Overview: Added automatically from request for surgery [id number] Chronic GERD 02/07/2016 02/07/2016 Special screening for malignant neoplasms, colon 07/26/2015 07/26/2015 GERD (gastroesophageal reflux disease) 5 01/18/2022 ADD (attention deficit disorder) 07/18/2015 01/18/2022 Substance abuse rule out 03/15/2015 022 Herpes 11/30/2014 02/28/2016 Overview: Positive for types 1 and 2. Duodenitis without mention of hemorrhage 012 01/18/2022 Acute gastritis without mention of hemorrhage 01/18/2022 Hyperlipidemia 12/18/2011 01/18/2022 Pain in joint, lower leg 07/13/2007 022 Bipolar disorder, unspecified 02/20/2007 Chest pain, unspecified 01/23/2007 01/18/20 22 Backache, unspecified 06/18/2006 01/18/2022 PROCTITIS IDIOPATHIC 06/04/2006 01/18/2022 Hemorrhage of gastrointestinal tract, unspecifie d 05/29/2006 01/18/2022 Headache(784.0) 01/21/2006 01/18/2022 documented as of this encounter (statuses as of 12/31/2022) [facility] Past illness Narrative* Problem Noted Date Resolved Date COPD with chronic bronchitis 03/31/2019 Screen for colon cancer 08/05/2018 01/18/20 22 Overview: Added automatically from request for surgery [id number] Chronic GERD 02/07/2016 02/07/2016 Special screening for malignant neoplasms, colon 07/26/2015 07/26/2015 GERD (gastroesophageal reflux disease) 5 01/18/2022 ADD (attention deficit disorder) 07/18/2015 01/18/2022 Substance abuse rule out 03/15/2015 022 Herpes 11/30/2014 02/28/2016 Overview: Positive for types 1 and 2. Duodenitis without mention of hemorrhage 012 01/18/2022 Acute gastritis without mention of hemorrhage 01/18/2022 Hyperlipidemia 12/18/2011 01/18/2022 Pain in joint, lower leg 07/13/2007 022 Bipolar disorder, unspecified 02/20/2007 Chest pain, unspecified 01/23/2007 01/18/20 22 Backache, unspecified 06/18/2006 01/18/2022 PROCTITIS IDIOPATHIC 06/04/2006 01/18/2022 Hemorrhage of gastrointestinal tract, unspecifie d 05/29/2006 01/18/2022 Headache(784.0) 01/21/2006 01/18/2022 documented as of this encounter (statuses as of 12/31/2022) [facility]05-01-2019 History of Past illness Narrative* Problem Noted Date Resolved Date COPD with chronic bronchitis 03/31/2019 Screen for colon cancer 08/05/2018 01/18/20 22 Overview: Added automatically from request for surgery [id number] Chronic GERD 02/07/2016 02/07/2016 Special screening for malignant neoplasms, colon 07/26/2015 07/26/2015 GERD (gastroesophageal reflux disease) 5 01/18/2022 ADD (attention deficit disorder) 07/18/2015 01/18/2022 Substance abuse rule out 03/15/2015 022 Herpes 11/30/2014 02/28/2016 Overview: Positive for types 1 and 2. Duodenitis without mention of hemorrhage 012 01/18/2022 Acute gastritis without mention of hemorrhage 01/18/2022 Hyperlipidemia 12/18/2011 01/18/2022 Pain in joint, lower leg 07/13/2007 022 Bipolar disorder, unspecified 02/20/2007 Chest pain, unspecified 01/23/2007 01/18/20 22 Backache, unspecified 06/18/2006 01/18/2022 PROCTITIS IDIOPATHIC 06/04/2006 01/18/2022 Hemorrhage of gastrointestinal tract, unspecifie d 05/29/2006 01/18/2022 Headache(784.0) 01/21/2006 01/18/2022 documented as of this encounter (statuses as of 01/01/2023) [facility]2019 History of Past illness Narrative* Problem Noted Date Resolved Date COPD with chronic bronchitis 03/31/2019 Screen for colon cancer 08/05/2018 01/18/20 22 Overview: Added automatically from request for surgery [id number] Chronic GERD 02/07/2016 02/07/2016 Special screening for malignant neoplasms, colon 07/26/2015 07/26/2015 GERD (gastroesophageal reflux disease) 5 01/18/2022 ADD (attention deficit disorder) 07/18/2015 01/18/2022 Substance abuse rule out 03/15/2015 022 Herpes 11/30/2014 02/28/2016 Overview: Positive for types 1 and 2. Duodenitis without mention of hemorrhage 012 01/18/2022 Acute gastritis without mention of hemorrhage 01/18/2022 Hyperlipidemia 12/18/2011 01/18/2022 Pain in joint, lower leg 07/13/2007 022 Bipolar disorder, unspecified 02/20/2007 Chest pain, unspecified 01/23/2007 01/18/20 22 Backache, unspecified 06/18/2006 01/18/2022 PROCTITIS IDIOPATHIC 06/04/2006 01/18/2022 Hemorrhage of gastrointestinal tract, unspecifie d 05/29/2006 01/18/2022 Headache(784.0) 01/21/2006 01/18/2022 documented as of this encounter (statuses as of 01/02/2023) [facility] History of Past illness Narrative* Problem Noted Date Resolved Date COPD with chronic bronchitis 03/31/2019 Screen for colon cancer 08/05/2018 01/18/20 22 Overview: Added automatically from request for surgery [id number] Chronic GERD 02/07/2016 02/07/2016 Special screening for malignant neoplasms, colon 07/26/2015 07/26/2015 GERD (gastroesophageal reflux disease) 5 01/18/2022 ADD (attention deficit disorder) 07/18/2015 01/18/2022 Substance abuse rule out 03/15/2015 022 Herpes 11/30/2014 02/28/2016 Overview: Positive for types 1 and 2. Duodenitis without mention of hemorrhage 012 01/18/2022 Acute gastritis without mention of hemorrhage 01/18/2022 Hyperlipidemia 12/18/2011 01/18/2022 Pain in joint, lower leg 07/13/2007 022 Bipolar disorder, unspecified 02/20/2007 Chest pain, unspecified 01/23/2007 01/18/20 22 Backache, unspecified 06/18/2006 01/18/2022 PROCTITIS IDIOPATHIC 06/04/2006 01/18/2022 Hemorrhage of gastrointestinal tract, unspecifie d 05/29/2006 01/18/2022 Headache(784.0) 01/21/2006 01/18/2022 documented as of this encounter (statuses as of 01/03/2023) [facility] History of Past illness Narrative* Problem Noted Date Resolved Date COPD with chronic bronchitis 03/31/2019 Screen for colon cancer 08/05/2018 01/18/20 22 Overview: Added automatically from request for surgery [id number] Chronic GERD 02/07/2016 02/07/2016 Special screening for malignant neoplasms, colon 07/26/2015 07/26/2015 GERD (gastroesophageal reflux disease) 5 01/18/2022 ADD (attention deficit disorder) 07/18/2015 01/18/2022 Substance abuse rule out 03/15/2015 022 Herpes 11/30/2014 02/28/2016 Overview: Positive for types 1 and 2. Duodenitis without mention of hemorrhage 012 01/18/2022 Acute gastritis without mention of hemorrhage 01/18/2022 Hyperlipidemia 12/18/2011 01/18/2022 Pain in joint, lower leg 07/13/2007 022 Bipolar disorder, unspecified 02/20/2007 Chest pain, unspecified 01/23/2007 01/18/20 22 Backache, unspecified 06/18/2006 01/18/2022 PROCTITIS IDIOPATHIC 06/04/2006 01/18/2022 Hemorrhage of gastrointestinal tract, unspecifie d 05/29/2006 01/18/2022 Headache(784.0) 01/21/2006 01/18/2022 documented as of this encounter (statuses as of 01/03/2023) [facility] History of Past illness Narrative* Problem Noted Date Resolved Date COPD with chronic bronchitis 03/31/2019 Screen for colon cancer 08/05/2018 01/18/20 22 Overview: Added automatically from request for surgery [id number] Chronic GERD 02/07/2016 02/07/2016 Special screening for malignant neoplasms, colon 07/26/2015 07/26/2015 GERD (gastroesophageal reflux disease) 5 01/18/2022 ADD (attention deficit disorder) 07/18/2015 01/18/2022 Substance abuse rule out 03/15/2015 022 Herpes 11/30/2014 02/28/2016 Overview: Positive for types 1 and 2. Duodenitis without mention of hemorrhage 012 01/18/2022 Acute gastritis without mention of hemorrhage 01/18/2022 Hyperlipidemia 12/18/2011 01/18/2022 Pain in joint, lower leg 07/13/2007 022 Bipolar disorder, unspecified 02/20/2007 Chest pain, unspecified 01/23/2007 01/18/20 22 Backache, unspecified 06/18/2006 01/18/2022 PROCTITIS IDIOPATHIC 06/04/2006 01/18/2022 Hemorrhage of gastrointestinal tract, unspecifie d 05/29/2006 01/18/2022 Headache(784.0) 01/21/2006 01/18/2022 documented as of this encounter (statuses as of 01/06/2023) [facility] History of Past illness Narrative* Problem Noted Date Resolved Date COPD with chronic bronchitis 03/31/2019 Screen for colon cancer 08/05/2018 01/18/20 22 Overview: Added automatically from request for surgery [id number] Chronic GERD 02/07/2016 02/07/2016 Special screening for malignant neoplasms, colon 07/26/2015 07/26/2015 GERD (gastroesophageal reflux disease) 5 01/18/2022 ADD (attention deficit disorder) 07/18/2015 01/18/2022 Substance abuse rule out 03/15/2015 022 Herpes 11/30/2014 02/28/2016 Overview: Positive for types 1 and 2. Duodenitis without mention of hemorrhage 012 01/18/2022 Acute gastritis without mention of hemorrhage 01/18/2022 Hyperlipidemia 12/18/2011 01/18/2022 Pain in joint, lower leg 07/13/2007 022 Bipolar disorder, unspecified 02/20/2007 Chest pain, unspecified 01/23/2007 01/18/20 22 Backache, unspecified 06/18/2006 01/18/2022 PROCTITIS IDIOPATHIC 06/04/2006 01/18/2022 Hemorrhage of gastrointestinal tract, unspecifie d 05/29/2006 01/18/2022 Headache(784.0) 01/21/2006 01/18/2022 documented as of this encounter (statuses as of 01/07/2023) [facility] History of Past illness Narrative* Problem Noted Date Resolved Date COPD with chronic bronchitis 03/31/2019 Screen for colon cancer 08/05/2018 01/18/20 22 Overview: Added automatically from request for surgery [id number] Chronic GERD 02/07/2016 02/07/2016 Special screening for malignant neoplasms, colon 07/26/2015 07/26/2015 GERD (gastroesophageal reflux disease) 5 01/18/2022 ADD (attention deficit disorder) 07/18/2015 01/18/2022 Substance abuse rule out 03/15/2015 022 Herpes 11/30/2014 02/28/2016 Overview: Positive for types 1 and 2. Duodenitis without mention of hemorrhage 012 01/18/2022 Acute gastritis without mention of hemorrhage 01/18/2022 Hyperlipidemia 12/18/2011 01/18/2022 Pain in joint, lower leg 07/13/2007 022 Bipolar disorder, unspecified 02/20/2007 Chest pain, unspecified 01/23/2007 01/18/20 22 Backache, unspecified 06/18/2006 01/18/2022 PROCTITIS IDIOPATHIC 06/04/2006 01/18/2022 Hemorrhage of gastrointestinal tract, unspecifie d 05/29/2006 01/18/2022 Headache(784.0) 01/21/2006 01/18/2022 documented as of this encounter (statuses as of 01/07/2023) [facility] History of Past illness Narrative* Problem Noted Date Resolved Date COPD with chronic bronchitis 03/31/2019 Screen for colon cancer 08/05/2018 01/18/20 22 Overview: Added automatically from request for surgery [id number] Chronic GERD 02/07/2016 02/07/2016 Special screening for malignant neoplasms, colon 07/26/2015 07/26/2015 GERD (gastroesophageal reflux disease) 5 01/18/2022 ADD (attention deficit disorder) 07/18/2015 01/18/2022 Substance abuse rule out 03/15/2015 022 Herpes 11/30/2014 02/28/2016 Overview: Positive for types 1 and 2. Duodenitis without mention of hemorrhage 012 01/18/2022 Acute gastritis without mention of hemorrhage 01/18/2022 Hyperlipidemia 12/18/2011 01/18/2022 Pain in joint, lower leg 07/13/2007 022 Bipolar disorder, unspecified 02/20/2007 Chest pain, unspecified 01/23/2007 01/18/20 22 Backache, unspecified 06/18/2006 01/18/2022 PROCTITIS IDIOPATHIC 06/04/2006 01/18/2022 Hemorrhage of gastrointestinal tract, unspecifie d 05/29/2006 01/18/2022 Headache(784.0) 01/21/2006 01/18/2022 documented as of this encounter (statuses as of 01/10/2023) [facility] History of Past illness Narrative* Problem Noted Date Resolved Date COPD with chronic bronchitis 03/31/2019 Screen for colon cancer 08/05/2018 01/18/20 22 Overview: Added automatically from request for surgery [id number] Chronic GERD 02/07/2016 02/07/2016 Special screening for malignant neoplasms, colon 07/26/2015 07/26/2015 GERD (gastroesophageal reflux disease) 5 01/18/2022 ADD (attention deficit disorder) 07/18/2015 01/18/2022 Substance abuse rule out 03/15/2015 022 Herpes 11/30/2014 02/28/2016 Overview: Positive for types 1 and 2. Duodenitis without mention of hemorrhage 012 01/18/2022 Acute gastritis without mention of hemorrhage 01/18/2022 Hyperlipidemia 12/18/2011 01/18/2022 Pain in joint, lower leg 07/13/2007 022 Bipolar disorder, unspecified 02/20/2007 Chest pain, unspecified 01/23/2007 01/18/20 22 Backache, unspecified 06/18/2006 01/18/2022 PROCTITIS IDIOPATHIC 06/04/2006 01/18/2022 Hemorrhage of gastrointestinal tract, unspecifie d 05/29/2006 01/18/2022 Headache(784.0) 01/21/2006 01/18/2022 documented as of this encounter (statuses as of 01/27/2023) [facility] History of Past illness Narrative* Problem Noted Date Resolved Date COPD with chronic bronchitis 03/31/2019 Screen for colon cancer 08/05/2018 01/18/20 22 Overview: Added automatically from request for surgery [id number] Chronic GERD 02/07/2016 02/07/2016 Special screening for malignant neoplasms, colon 07/26/2015 07/26/2015 GERD (gastroesophageal reflux disease) 5 01/18/2022 ADD (attention deficit disorder) 07/18/2015 01/18/2022 Substance abuse rule out 03/15/2015 022 Herpes 11/30/2014 02/28/2016 Overview: Positive for types 1 and 2. Duodenitis without mention of hemorrhage 012 01/18/2022 Acute gastritis without mention of hemorrhage 01/18/2022 Hyperlipidemia 12/18/2011 01/18/2022 Pain in joint, lower leg 07/13/2007 022 Bipolar disorder, unspecified 02/20/2007 Chest pain, unspecified 01/23/2007 01/18/20 22 Backache, unspecified 06/18/2006 01/18/2022 PROCTITIS IDIOPATHIC 06/04/2006 01/18/2022 Hemorrhage of gastrointestinal tract, unspecifie d 05/29/2006 01/18/2022 Headache(784.0) 01/21/2006 01/18/2022 documented as of this encounter (statuses as of 01/31/2023) [facility] History of Past illness Narrative* Problem Noted Date Resolved Date COPD with chronic bronchitis 03/31/2019 Screen for colon cancer 08/05/2018 01/18/20 22 Overview: Added automatically from request for surgery [id number] Chronic GERD 02/07/2016 02/07/2016 Special screening for malignant neoplasms, colon 07/26/2015 07/26/2015 GERD (gastroesophageal reflux disease) 5 01/18/2022 ADD (attention deficit disorder) 07/18/2015 01/18/2022 Substance abuse rule out 03/15/2015 022 Herpes 11/30/2014 02/28/2016 Overview: Positive for types 1 and 2. Duodenitis without mention of hemorrhage 012 01/18/2022 Acute gastritis without mention of hemorrhage 01/18/2022 Hyperlipidemia 12/18/2011 01/18/2022 Pain in joint, lower leg 07/13/2007 022 Bipolar disorder, unspecified 02/20/2007 Chest pain, unspecified 01/23/2007 01/18/20 22 Backache, unspecified 06/18/2006 01/18/2022 PROCTITIS IDIOPATHIC 06/04/2006 01/18/2022 Hemorrhage of gastrointestinal tract, unspecifie d 05/29/2006 01/18/2022 Headache(784.0) 01/21/2006 01/18/2022 documented as of this encounter (statuses as of 02/20/2023) [facility] History of Past illness Narrative* Problem Noted Date Resolved Date COPD with chronic bronchitis 03/31/2019 Screen for colon cancer 08/05/2018 01/18/20 22 Overview: Added automatically from request for surgery [id number] Chronic GERD 02/07/2016 02/07/2016 Special screening for malignant neoplasms, colon 07/26/2015 07/26/2015 GERD (gastroesophageal reflux disease) 5 01/18/2022 ADD (attention deficit disorder) 07/18/2015 01/18/2022 Substance abuse rule out 03/15/2015 022 Herpes 11/30/2014 02/28/2016 Overview: Positive for types 1 and 2. Duodenitis without mention of hemorrhage 012 01/18/2022 Acute gastritis without mention of hemorrhage 01/18/2022 Hyperlipidemia 12/18/2011 01/18/2022 Pain in joint, lower leg 07/13/2007 022 Bipolar disorder, unspecified 02/20/2007 Chest pain, unspecified 01/23/2007 01/18/20 22 Backache, unspecified 06/18/2006 01/18/2022 PROCTITIS IDIOPATHIC 06/04/2006 01/18/2022 Hemorrhage of gastrointestinal tract, unspecifie d 05/29/2006 01/18/2022 Headache(784.0) 01/21/2006 01/18/2022 documented as of this encounter (statuses as of 02/24/2023) [facility] History of Past illness Narrative* Problem Noted Date Resolved Date COPD with chronic bronchitis 03/31/2019 Screen for colon cancer 08/05/2018 01/18/20 22 Overview: Added automatically from request for surgery [id number] Chronic GERD 02/07/2016 02/07/2016 Special screening for malignant neoplasms, colon 07/26/2015 07/26/2015 GERD (gastroesophageal reflux disease) 5 01/18/2022 ADD (attention deficit disorder) 07/18/2015 01/18/2022 Substance abuse rule out 03/15/2015 022 Herpes 11/30/2014 02/28/2016 Overview: Positive for types 1 and 2. Duodenitis without mention of hemorrhage 012 01/18/2022 Acute gastritis without mention of hemorrhage 01/18/2022 Hyperlipidemia 12/18/2011 01/18/2022 Pain in joint, lower leg 07/13/2007 022 Bipolar disorder, unspecified 02/20/2007 Chest pain, unspecified 01/23/2007 01/18/20 22 Backache, unspecified 06/18/2006 01/18/2022 PROCTITIS IDIOPATHIC 06/04/2006 01/18/2022 Hemorrhage of gastrointestinal tract, unspecifie d 05/29/2006 01/18/2022 Headache(784.0) 01/21/2006 01/18/2022 documented as of this encounter (statuses as of 03/06/2023) [facility] History of Past illness Narrative* Problem Noted Date Resolved Date COPD with chronic bronchitis 03/31/2019 Screen for colon cancer 08/05/2018 01/18/20 22 Overview: Added automatically from request for surgery [id number] Chronic GERD 02/07/2016 02/07/2016 Special screening for malignant neoplasms, colon 07/26/2015 07/26/2015 GERD (gastroesophageal reflux disease) 5 01/18/2022 ADD (attention deficit disorder) 07/18/2015 01/18/2022 Substance abuse rule out 03/15/2015 022 Herpes 11/30/2014 02/28/2016 Overview: Positive for types 1 and 2. Duodenitis without mention of hemorrhage 012 01/18/2022 Acute gastritis without mention of hemorrhage 01/18/2022 Hyperlipidemia 12/18/2011 01/18/2022 Pain in joint, lower leg 07/13/2007 022 Bipolar disorder, unspecified 02/20/2007 Chest pain, unspecified 01/23/2007 01/18/20 22 Backache, unspecified 06/18/2006 01/18/2022 PROCTITIS IDIOPATHIC 06/04/2006 01/18/2022 Hemorrhage of gastrointestinal tract, unspecifie d 05/29/2006 01/18/2022 Headache(784.0) 01/21/2006 01/18/2022 documented as of this encounter (statuses as of 03/15/2023) [facility] History of Past illness Narrative* Problem Noted Date Resolved Date COPD with chronic bronchitis 03/31/2019 Screen for colon cancer 08/05/2018 01/18/20 22 Overview: Added automatically from request for surgery [id number] Chronic GERD 02/07/2016 02/07/2016 Special screening for malignant neoplasms, colon 07/26/2015 07/26/2015 GERD (gastroesophageal reflux disease) 5 01/18/2022 ADD (attention deficit disorder) 07/18/2015 01/18/2022 Substance abuse rule out 03/15/2015 022 Herpes 11/30/2014 02/28/2016 Overview: Positive for types 1 and 2. Duodenitis without mention of hemorrhage 012 01/18/2022 Acute gastritis without mention of hemorrhage 01/18/2022 Hyperlipidemia 12/18/2011 01/18/2022 Pain in joint, lower leg 07/13/2007 022 Bipolar disorder, unspecified 02/20/2007 Chest pain, unspecified 01/23/2007 01/18/20 22 Backache, unspecified 06/18/2006 01/18/2022 PROCTITIS IDIOPATHIC 06/04/2006 01/18/2022 Hemorrhage of gastrointestinal tract, unspecifie d 05/29/2006 01/18/2022 Headache(784.0) 01/21/2006 01/18/2022 documented as of this encounter (statuses as of 03/17/2023) [facility] of Past illness Narrative* Problem Noted Date Resolved Date COPD with chronic bronchitis 03/31/2019 Screen for colon cancer 08/05/2018 01/18/20 22 Overview: Added automatically from request for surgery [id number] Chronic GERD 02/07/2016 02/07/2016 Special screening for malignant neoplasms, colon 07/26/2015 07/26/2015 GERD (gastroesophageal reflux disease) 5 01/18/2022 ADD (attention deficit disorder) 07/18/2015 01/18/2022 Substance abuse rule out 03/15/2015 022 Herpes 11/30/2014 02/28/2016 Overview: Positive for types 1 and 2. Duodenitis without mention of hemorrhage 012 01/18/2022 Acute gastritis without mention of hemorrhage 01/18/2022 Hyperlipidemia 12/18/2011 01/18/2022 Pain in joint, lower leg 07/13/2007 022 Bipolar disorder, unspecified 02/20/2007 Chest pain, unspecified 01/23/2007 01/18/20 22 Backache, unspecified 06/18/2006 01/18/2022 PROCTITIS IDIOPATHIC 06/04/2006 01/18/2022 Hemorrhage of gastrointestinal tract, unspecifie d 05/29/2006 01/18/2022 Headache(784.0) 01/21/2006 01/18/2022 documented as of this encounter (statuses as of 03/24/2023) [facility] of Past illness Narrative* Problem Noted Date Resolved Date COPD with chronic bronchitis 03/31/2019 Screen for colon cancer 08/05/2018 01/18/20 22 Overview: Added automatically from request for surgery [id number] Chronic GERD 02/07/2016 02/07/2016 Special screening for malignant neoplasms, colon 07/26/2015 07/26/2015 GERD (gastroesophageal reflux disease) 5 01/18/2022 ADD (attention deficit disorder) 07/18/2015 01/18/2022 Substance abuse rule out 03/15/2015 022 Herpes 11/30/2014 02/28/2016 Overview: Positive for types 1 and 2. Duodenitis without mention of hemorrhage 012 01/18/2022 Acute gastritis without mention of hemorrhage 01/18/2022 Hyperlipidemia 12/18/2011 01/18/2022 Pain in joint, lower leg 07/13/2007 022 Bipolar disorder, unspecified 02/20/2007 Chest pain, unspecified 01/23/2007 01/18/20 22 Backache, unspecified 06/18/2006 01/18/2022 PROCTITIS IDIOPATHIC 06/04/2006 01/18/2022 Hemorrhage of gastrointestinal tract, unspecifie d 05/29/2006 01/18/2022 Headache(784.0) 01/21/2006 01/18/2022 documented as of this encounter (statuses as of 03/25/2023) [facility] of Past illness Narrative* Problem Noted Date Resolved Date COPD with chronic bronchitis 03/31/2019 Screen for colon cancer 08/05/2018 01/18/20 Overview: Added automatically from request for surgery [id number] Chronic GERD 02/07/2016 02/07/2016 Special screening for malignant neoplasms, colon 07/26/2015 07/26/2015 GERD (gastroesophageal reflux disease) 5 01/18/2022 ADD (attention deficit disorder) 07/18/2015 01/18/2022 Substance abuse rule out 03/15/2015 022 Herpes 11/30/2014 02/28/2016 Overview: Positive for types 1 and 2. Duodenitis without mention of hemorrhage 012 01/18/2022 Acute gastritis without mention of hemorrhage 01/18/2022 Hyperlipidemia 12/18/2011 01/18/2022 Pain in joint, lower leg 07/13/2007 022 Bipolar disorder, unspecified 02/20/2007 Chest pain, unspecified 01/23/2007 01/18/20 22 Backache, unspecified 06/18/2006 01/18/2022 PROCTITIS IDIOPATHIC 06/04/2006 01/18/2022 Hemorrhage of gastrointestinal tract, unspecifie d 05/29/2006 01/18/2022 Headache(784.0) 01/21/2006 01/18/2022 documented as of this encounter (statuses as of 03/26/2023) [facility] of Past illness Narrative* Problem Noted Date Resolved Date COPD with chronic bronchitis 03/31/2019 Screen for colon cancer 08/05/2018 01/18/20 22 Overview: Added automatically from request for surgery [id number] Chronic GERD 02/07/2016 02/07/2016 Special screening for malignant neoplasms, colon 07/26/2015 07/26/2015 GERD (gastroesophageal reflux disease) 5 01/18/2022 ADD (attention deficit disorder) 07/18/2015 01/18/2022 Substance abuse rule out 03/15/2015 022 Herpes 11/30/2014 02/28/2016 Overview: Positive for types 1 and 2. Duodenitis without mention of hemorrhage 012 01/18/2022 Acute gastritis without mention of hemorrhage 01/18/2022 Hyperlipidemia 12/18/2011 01/18/2022 Pain in joint, lower leg 07/13/2007 022 Bipolar disorder, unspecified 02/20/2007 Chest pain, unspecified 01/23/2007 01/18/20 22 Backache, unspecified 06/18/2006 01/18/2022 PROCTITIS IDIOPATHIC 06/04/2006 01/18/2022 Hemorrhage of gastrointestinal tract, unspecifie d 05/29/2006 01/18/2022 Headache(784.0) 01/21/2006 01/18/2022 documented as of this encounter (statuses as of 03/28/2023) [facility] of Past illness Narrative* Problem Noted Date Resolved Date COPD with chronic bronchitis 03/31/2019 Screen for colon cancer 08/05/2018 01/18/20 22 Overview: Added automatically from request for surgery [id number] Chronic GERD 02/07/2016 02/07/2016 Special screening for malignant neoplasms, colon 07/26/2015 07/26/2015 GERD (gastroesophageal reflux disease) 5 01/18/2022 ADD (attention deficit disorder) 07/18/2015 01/18/2022 Substance abuse rule out 03/15/2015 022 Herpes 11/30/2014 02/28/2016 Overview: Positive for types 1 and 2. Duodenitis without mention of hemorrhage 012 01/18/2022 Acute gastritis without mention of hemorrhage 01/18/2022 Hyperlipidemia 12/18/2011 01/18/2022 Pain in joint, lower leg 07/13/2007 022 Bipolar disorder, unspecified 02/20/2007 Chest pain, unspecified 01/23/2007 01/18/20 22 Backache, unspecified 06/18/2006 01/18/2022 PROCTITIS IDIOPATHIC 06/04/2006 01/18/2022 Hemorrhage of gastrointestinal tract, unspecifie d 05/29/2006 01/18/2022 Headache(784.0) 01/21/2006 01/18/2022 documented as of this encounter (statuses as of 04/02/2023) [facility] of Past illness Narrative* Problem Noted Date Resolved Date COPD with chronic bronchitis 03/31/2019 Screen for colon cancer 08/05/2018 01/18/20 22 Overview: Added automatically from request for surgery [id number] Chronic GERD 02/07/2016 02/07/2016 Special screening for malignant neoplasms, colon 07/26/2015 07/26/2015 GERD (gastroesophageal reflux disease) 5 01/18/2022 ADD (attention deficit disorder) 07/18/2015 01/18/2022 Substance abuse rule out 03/15/2015 022 Herpes 11/30/2014 02/28/2016 Overview: Positive for types 1 and 2. Duodenitis without mention of hemorrhage 012 01/18/2022 Acute gastritis without mention of hemorrhage 01/18/2022 Hyperlipidemia 12/18/2011 01/18/2022 Pain in joint, lower leg 07/13/2007 022 Bipolar disorder, unspecified 02/20/2007 Chest pain, unspecified 01/23/2007 01/18/20 22 Backache, unspecified 06/18/2006 01/18/2022 PROCTITIS IDIOPATHIC 06/04/2006 01/18/2022 Hemorrhage of gastrointestinal tract, unspecifie d 05/29/2006 01/18/2022 Headache(784.0) 01/21/2006 01/18/2022 documented as of this encounter (statuses as of 04/02/2023) [facility] Past illness Narrative* Problem Noted Date Resolved Date COPD with chronic bronchitis 03/31/2019 Screen for colon cancer 08/05/2018 01/18/20 22 Overview: Added automatically from request for surgery [id number] Chronic GERD 02/07/2016 02/07/2016 Special screening for malignant neoplasms, colon 07/26/2015 07/26/2015 GERD (gastroesophageal reflux disease) 5 01/18/2022 ADD (attention deficit disorder) 07/18/2015 01/18/2022 Substance abuse rule out 03/15/2015 022 Herpes 11/30/2014 02/28/2016 Overview: Positive for types 1 and 2. Duodenitis without mention of hemorrhage 012 01/18/2022 Acute gastritis without mention of hemorrhage 01/18/2022 Hyperlipidemia 12/18/2011 01/18/2022 Pain in joint, lower leg 07/13/2007 022 Bipolar disorder, unspecified 02/20/2007 Chest pain, unspecified 01/23/2007 01/18/20 22 Backache, unspecified 06/18/2006 01/18/2022 PROCTITIS IDIOPATHIC 06/04/2006 01/18/2022 Hemorrhage of gastrointestinal tract, unspecifie d 05/29/2006 01/18/2022 Headache(784.0) 01/21/2006 01/18/2022 documented as of this encounter (statuses as of 05/08/2023) [facility]2019 History of Past illness Narrative* Problem Noted Date Resolved Date COPD with chronic bronchitis 03/31/2019 Screen for colon cancer 08/05/2018 01/18/20 22 Overview: Added automatically from request for surgery [id number] Chronic GERD 02/07/2016 02/07/2016 Special screening for malignant neoplasms, colon 07/26/2015 07/26/2015 GERD (gastroesophageal reflux disease) 5 01/18/2022 ADD (attention deficit disorder) 07/18/2015 01/18/2022 Substance abuse rule out 03/15/2015 022 Herpes 11/30/2014 02/28/2016 Overview: Positive for types 1 and 2. Duodenitis without mention of hemorrhage 012 01/18/2022 Acute gastritis without mention of hemorrhage 01/18/2022 Hyperlipidemia 12/18/2011 01/18/2022 Pain in joint, lower leg 07/13/2007 022 Bipolar disorder, unspecified 02/20/2007 Chest pain, unspecified 01/23/2007 01/18/20 22 Backache, unspecified 06/18/2006 01/18/2022 PROCTITIS IDIOPATHIC 06/04/2006 01/18/2022 Hemorrhage of gastrointestinal tract, unspecifie d 05/29/2006 01/18/2022 Headache(784.0) 01/21/2006 01/18/2022 documented as of this encounter (statuses as of 05/21/2023) [facility] History of Past illness Narrative* Problem Noted Date Resolved Date COPD with chronic bronchitis 03/31/2019 Screen for colon cancer 08/05/2018 01/18/20 22 Overview: Added automatically from request for surgery [id number] Chronic GERD 02/07/2016 02/07/2016 Special screening for malignant neoplasms, colon 07/26/2015 07/26/2015 GERD (gastroesophageal reflux disease) 5 01/18/2022 ADD (attention deficit disorder) 07/18/2015 01/18/2022 Substance abuse rule out 03/15/2015 022 Herpes 11/30/2014 02/28/2016 Overview: Positive for types 1 and 2. Duodenitis without mention of hemorrhage 012 01/18/2022 Acute gastritis without mention of hemorrhage 01/18/2022 Hyperlipidemia 12/18/2011 01/18/2022 Pain in joint, lower leg 07/13/2007 022 Bipolar disorder, unspecified 02/20/2007 Chest pain, unspecified 01/23/2007 01/18/20 22 Backache, unspecified 06/18/2006 01/18/2022 PROCTITIS IDIOPATHIC 06/04/2006 01/18/2022 Hemorrhage of gastrointestinal tract, unspecifie d 05/29/2006 01/18/2022 Headache(784.0) 01/21/2006 01/18/2022 documented as of this encounter (statuses as of 05/26/2023) [facility] History of Past illness Narrative* Problem Noted Date Resolved Date COPD with chronic bronchitis 03/31/2019 Screen for colon cancer 08/05/2018 01/18/20 22 Overview: Added automatically from request for surgery [id number] Chronic GERD 02/07/2016 02/07/2016 Special screening for malignant neoplasms, colon 07/26/2015 07/26/2015 GERD (gastroesophageal reflux disease) 5 01/18/2022 ADD (attention deficit disorder) 07/18/2015 01/18/2022 Substance abuse rule out 03/15/2015 022 Herpes 11/30/2014 02/28/2016 Overview: Positive for types 1 and 2. Duodenitis without mention of hemorrhage 012 01/18/2022 Acute gastritis without mention of hemorrhage 01/18/2022 Hyperlipidemia 12/18/2011 01/18/2022 Pain in joint, lower leg 07/13/2007 022 Bipolar disorder, unspecified 02/20/2007 Chest pain, unspecified 01/23/2007 01/18/20 22 Backache, unspecified 06/18/2006 01/18/2022 PROCTITIS IDIOPATHIC 06/04/2006 01/18/2022 Hemorrhage of gastrointestinal tract, unspecifie d 05/29/2006 01/18/2022 Headache(784.0) 01/21/2006 01/18/2022 documented as of this encounter (statuses as of 05/29/2023) [facility] History of Past illness Narrative* Problem Noted Date Resolved Date COPD with chronic bronchitis 03/31/2019 Screen for colon cancer 08/05/2018 01/18/20 22 Overview: Added automatically from request for surgery [id number] Chronic GERD 02/07/2016 02/07/2016 Special screening for malignant neoplasms, colon 07/26/2015 07/26/2015 GERD (gastroesophageal reflux disease) 5 01/18/2022 ADD (attention deficit disorder) 07/18/2015 01/18/2022 Substance abuse rule out 03/15/2015 022 Herpes 11/30/2014 02/28/2016 Overview: Positive for types 1 and 2. Duodenitis without mention of hemorrhage 012 01/18/2022 Acute gastritis without mention of hemorrhage 01/18/2022 Hyperlipidemia 12/18/2011 01/18/2022 Pain in joint, lower leg 07/13/2007 022 Bipolar disorder, unspecified 02/20/2007 Chest pain, unspecified 01/23/2007 01/18/20 22 Backache, unspecified 06/18/2006 01/18/2022 PROCTITIS IDIOPATHIC 06/04/2006 01/18/2022 Hemorrhage of gastrointestinal tract, unspecifie d 05/29/2006 01/18/2022 Headache(784.0) 01/21/2006 01/18/2022 documented as of this encounter (statuses as of 05/31/2023) [facility] History of Past illness Narrative* Problem Noted Date Resolved Date COPD with chronic bronchitis 03/31/2019 Screen for colon cancer 08/05/2018 01/18/20 22 Overview: Added automatically from request for surgery [id number] Chronic GERD 02/07/2016 02/07/2016 Special screening for malignant neoplasms, colon 07/26/2015 07/26/2015 GERD (gastroesophageal reflux disease) 5 01/18/2022 ADD (attention deficit disorder) 07/18/2015 01/18/2022 Substance abuse rule out 03/15/2015 022 Herpes 11/30/2014 02/28/2016 Overview: Positive for types 1 and 2. Duodenitis without mention of hemorrhage 012 01/18/2022 Acute gastritis without mention of hemorrhage 01/18/2022 Hyperlipidemia 12/18/2011 01/18/2022 Pain in joint, lower leg 07/13/2007 022 Bipolar disorder, unspecified 02/20/2007 Chest pain, unspecified 01/23/2007 01/18/20 22 Backache, unspecified 06/18/2006 01/18/2022 PROCTITIS IDIOPATHIC 06/04/2006 01/18/2022 Hemorrhage of gastrointestinal tract, unspecifie d 05/29/2006 01/18/2022 Headache(784.0) 01/21/2006 01/18/2022 documented as of this encounter (statuses as of 06/02/2023) [facility] History of Past illness Narrative* Problem Noted Date Resolved Date COPD with chronic bronchitis 03/31/2019 Screen for colon cancer 08/05/2018 01/18/20 22 Overview: Added automatically from request for surgery [id number] Chronic GERD 02/07/2016 02/07/2016 Special screening for malignant neoplasms, colon 07/26/2015 07/26/2015 GERD (gastroesophageal reflux disease) 5 01/18/2022 ADD (attention deficit disorder) 07/18/2015 01/18/2022 Substance abuse rule out 03/15/2015 022 Herpes 11/30/2014 02/28/2016 Overview: Positive for types 1 and 2. Duodenitis without mention of hemorrhage 012 01/18/2022 Acute gastritis without mention of hemorrhage 01/18/2022 Hyperlipidemia 12/18/2011 01/18/2022 Pain in joint, lower leg 07/13/2007 022 Bipolar disorder, unspecified 02/20/2007 Chest pain, unspecified 01/23/2007 01/18/20 22 Backache, unspecified 06/18/2006 01/18/2022 PROCTITIS IDIOPATHIC 06/04/2006 01/18/2022 Hemorrhage of gastrointestinal tract, unspecifie d 05/29/2006 01/18/2022 Headache(784.0) 01/21/2006 01/18/2022 documented as of this encounter (statuses as of 06/05/2023) [facility] History of Past illness Narrative* Problem Noted Date Diagnosed Date Resolved Date COPD with chronic bronchitis 03/31/2019 01/18/2022 Screen for colon cancer 08/05/201801/01 Overview: Added automatically from request for surgery [id number] Chronic GERD 02/07/2016 02/07/2016 Special screening for malign ant neoplasms, colon 07/26/2015 07/26/2015 GERD (gastroesophageal reflux disease) 07/19/2015 01/18/2022 ADD (attention deficit disorder) 07/18/2015 01/18/2022 Substance abuse rule out 03/15/2015 Herpes 11/30/2014 02/28/2016 Overview: Positive for types 1 and 2. Duodenitis without mention of hemorrhage 02/03/2012 01/18/2022 Acute gastritis without mention of hemorrhage 02/03/20 12 01/18/2022 Hyperlipidemia 12/18/2011 01/18/2022 Pain in joint, lower leg 07/13/2007 Bipolar disorder, unspecified 02/20/2007 01/18/2022 Chest pain, unspecified 01/23/200701/01 Backache, unspecified 06/18/20062021 PROCTITIS IDIOPATHIC 06/04/2006 022 Hemorrhage of gastrointestin al tract, unspecified 05/29/2006 01/18/2022 Headache(784.0) 01/21/2006 01/18/2022 documented as of this encounter (statuses as of 06/15/2023) [facility] History of Past illness Narrative* Problem Noted Date Diagnosed Date Resolved Date COPD with chronic bronchitis 03/31/2019 01/18/2022 Screen for colon cancer 08/05/201801/01 Overview: Added automatically from request for surgery [id number] Chronic GERD 02/07/2016 02/07/2016 Special screening for malign ant neoplasms, colon 07/26/2015 07/26/2015 GERD (gastroesophageal reflux disease) 07/19/2015 01/18/2022 ADD (attention deficit disorder) 07/18/2015 01/18/2022 Substance abuse rule out 03/15/2015 Herpes 11/30/2014 02/28/2016 Overview: Positive for types 1 and 2. Duodenitis without mention of hemorrhage 02/03/2012 01/18/2022 Acute gastritis without mention of hemorrhage 02/03/2001/18/2022 Hyperlipidemia 12/18/2011 01/18/2022 Pain in joint, lower leg 07/13/2007 Bipolar disorder, unspecified 02/20/2007 01/18/2022 Chest pain, unspecified 01/23/200701/01 Backache, unspecified 06/18/20062021 PROCTITIS IDIOPATHIC 06/04/2006 022 Hemorrhage of gastrointestin al tract, unspecified 05/29/2006 01/18/2022 Headache(784.0) 01/21/2006 01/18/2022 documented as of this encounter (statuses as of 06/18/2023) [facility] History of Past illness Narrative* Problem Noted Date Diagnosed Date Resolved Date COPD with chronic bronchitis 03/31/2019 01/18/2022 Screen for colon cancer 08/05/201801/01 Overview: Added automatically from request for surgery [id number] Chronic GERD 02/07/2016 02/07/2016 Special screening for malign ant neoplasms, colon 07/26/2015 07/26/2015 GERD (gastroesophageal reflux disease) 07/19/2015 01/18/2022 ADD (attention deficit disorder) 07/18/2015 01/18/2022 Substance abuse rule out 03/15/2015 Herpes 11/30/2014 02/28/2016 Overview: Positive for types 1 and 2. Duodenitis without mention of hemorrhage 02/03/2012 01/18/2022 Acute gastritis without mention of hemorrhage 02/03/2001/18/2022 Hyperlipidemia 12/18/2011 01/18/2022 Pain in joint, lower leg 07/13/2007 Bipolar disorder, unspecified 02/20/2007 01/18/2022 Chest pain, unspecified 01/23/200701/01 Backache, unspecified 06/18/20062021 PROCTITIS IDIOPATHIC 06/04/2006 022 Hemorrhage of gastrointestin al tract, unspecified 05/29/2006 01/18/2022 Headache(784.0) 01/21/2006 01/18/2022 documented as of this encounter (statuses as of 06/25/2023) [facility]2019 History of Past illness Narrative* Problem Noted Date Diagnosed Date Resolved Date COPD with chronic bronchitis 03/31/2019 01/18/2022 Screen for colon cancer 08/05/201801/01 Overview: Added automatically from request for surgery [id number] Chronic GERD 02/07/2016 02/07/2016 Special screening for malign ant neoplasms, colon 07/26/2015 07/26/2015 GERD (gastroesophageal reflux disease) 07/19/2015 01/18/2022 ADD (attention deficit disorder) 07/18/2015 01/18/2022 Substance abuse rule out 03/15/2015 Herpes 11/30/2014 02/28/2016 Overview: Positive for types 1 and 2. Duodenitis without mention of hemorrhage 02/03/2012 01/18/2022 Acute gastritis without mention of hemorrhage 02/03/20 12 01/18/2022 Hyperlipidemia 12/18/2011 01/18/2022 Pain in joint, lower leg 07/13/2007 Bipolar disorder, unspecified 02/20/2007 01/18/2022 Chest pain, unspecified 01/23/200701/01 Backache, unspecified 06/18/20062021 PROCTITIS IDIOPATHIC 06/04/2006 022 Hemorrhage of gastrointestin al tract, unspecified 05/29/2006 01/18/2022 Headache(784.0) 01/21/2006 01/18/2022 documented as of this encounter (statuses as of 06/26/2023) [facility] History of Past illness Narrative* Problem Noted Date Diagnosed Date Resolved Date COPD with chronic bronchitis 03/31/2019 01/18/2022 Screen for colon cancer 08/05/201801/01 Overview: Added automatically from request for surgery [id number] Chronic GERD 02/07/2016 02/07/2016 Special screening for malign ant neoplasms, colon 07/26/2015 07/26/2015 GERD (gastroesophageal reflux disease) 07/19/2015 01/18/2022 ADD (attention deficit disorder) 07/18/2015 01/18/2022 Substance abuse rule out 03/15/2015 Herpes 11/30/2014 02/28/2016 Overview: Positive for types 1 and 2. Duodenitis without mention of hemorrhage 02/03/2012 01/18/2022 Acute gastritis without mention of hemorrhage 02/03/20 12 01/18/2022 Hyperlipidemia 12/18/2011 01/18/2022 Pain in joint, lower leg 07/13/2007 Bipolar disorder, unspecified 02/20/2007 01/18/2022 Chest pain, unspecified 01/23/200701/01 Backache, unspecified 06/18/20062021 PROCTITIS IDIOPATHIC 06/04/2006 022 Hemorrhage of gastrointestin al tract, unspecified 05/29/2006 01/18/2022 Headache(784.0) 01/21/2006 01/18/2022 documented as of this encounter (statuses as of 07/19/2023) [facility] History of Past illness Narrative* Problem Noted Date Diagnosed Date Resolved Date COPD with chronic bronchitis 03/31/2019 01/18/2022 Screen for colon cancer 08/05/201801/01 Overview: Added automatically from request for surgery [id number] Chronic GERD 02/07/2016 02/07/2016 Special screening for malign ant neoplasms, colon 07/26/2015 07/26/2015 GERD (gastroesophageal reflux disease) 07/19/2015 01/18/2022 ADD (attention deficit disorder) 07/18/2015 01/18/2022 Substance abuse rule out 03/15/2015 Herpes 11/30/2014 02/28/2016 Overview: Positive for types 1 and 2. Duodenitis without mention of hemorrhage 02/03/2012 01/18/2022 Acute gastritis without mention of hemorrhage 02/03/2001/18/2022 Hyperlipidemia 12/18/2011 01/18/2022 Pain in joint, lower leg 07/13/2007 Bipolar disorder, unspecified 02/20/2007 01/18/2022 Chest pain, unspecified 01/23/200701/01 Backache, unspecified 06/18/20062021 PROCTITIS IDIOPATHIC 06/04/2006 022 Hemorrhage of gastrointestin al tract, unspecified 05/29/2006 01/18/2022 Headache(784.0) 01/21/2006 01/18/2022 documented as of this encounter (statuses as of 07/21/2023) [facility] History of Past illness Narrative* Problem Noted Date Diagnosed Date Resolved Date COPD with chronic bronchitis 03/31/2019 01/18/2022 Screen for colon cancer 08/05/201801/01 Overview: Added automatically from request for surgery [id number] Chronic GERD 02/07/2016 02/07/2016 Special screening for malign ant neoplasms, colon 07/26/2015 07/26/2015 GERD (gastroesophageal reflux disease) 07/19/2015 01/18/2022 ADD (attention deficit disorder) 07/18/2015 01/18/2022 Substance abuse rule out 03/15/2015 Herpes 11/30/2014 02/28/2016 Overview: Positive for types 1 and 2. Duodenitis without mention of hemorrhage 02/03/2012 01/18/2022 Acute gastritis without mention of hemorrhage 02/03/2001/18/2022 Hyperlipidemia 12/18/2011 01/18/2022 Pain in joint, lower leg 07/13/2007 Bipolar disorder, unspecified 02/20/2007 01/18/2022 Chest pain, unspecified 01/23/200701/01 Backache, unspecified 06/18/20062021 PROCTITIS IDIOPATHIC 06/04/2006 022 Hemorrhage of gastrointestin al tract, unspecified 05/29/2006 01/18/2022 Headache(784.0) 01/21/2006 01/18/2022 documented as of this encounter (statuses as of 07/25/2023) [facility] History of Past illness Narrative* Problem Noted Date Diagnosed Date Resolved Date COPD with chronic bronchitis 03/31/2019 01/18/2022 Screen for colon cancer 08/05/201801/01 Overview: Added automatically from request for surgery [id number] Chronic GERD 02/07/2016 02/07/2016 Special screening for malign ant neoplasms, colon 07/26/2015 07/26/2015 GERD (gastroesophageal reflux disease) 07/19/2015 01/18/2022 ADD (attention deficit disorder) 07/18/2015 01/18/2022 Substance abuse rule out 03/15/2015 Herpes 11/30/2014 02/28/2016 Overview: Positive for types 1 and 2. Duodenitis without mention of hemorrhage 02/03/2012 01/18/2022 Acute gastritis without mention of hemorrhage 02/03/20 12 01/18/2022 Hyperlipidemia 12/18/2011 01/18/2022 Pain in joint, lower leg 07/13/2007 Bipolar disorder, unspecified 02/20/2007 01/18/2022 Chest pain, unspecified 01/23/200701/01 Backache, unspecified 06/18/20062021 PROCTITIS IDIOPATHIC 06/04/2006 022 Hemorrhage of gastrointestin al tract, unspecified 05/29/2006 01/18/2022 Headache(784.0) 01/21/2006 01/18/2022 documented as of this encounter (statuses as of 07/25/2023) [facility] History of Past illness Narrative* Problem Noted Date Diagnosed Date Resolved Date COPD with chronic bronchitis 03/31/2019 01/18/2022 Screen for colon cancer 08/05/201801/01 Overview: Added automatically from request for surgery [id number] Chronic GERD 02/07/2016 02/07/2016 Special screening for malign ant neoplasms, colon 07/26/2015 07/26/2015 GERD (gastroesophageal reflux disease) 07/19/2015 01/18/2022 ADD (attention deficit disorder) 07/18/2015 01/18/2022 Substance abuse rule out 03/15/2015 Herpes 11/30/2014 02/28/2016 Overview: Positive for types 1 and 2. Duodenitis without mention of hemorrhage 02/03/2012 01/18/2022 Acute gastritis without mention of hemorrhage 02/03/20 12 01/18/2022 Hyperlipidemia 12/18/2011 01/18/2022 Pain in joint, lower leg 07/13/2007 Bipolar disorder, unspecified 02/20/2007 01/18/2022 Chest pain, unspecified 01/23/200701/01 Backache, unspecified 06/18/20062021 PROCTITIS IDIOPATHIC 06/04/2006 022 Hemorrhage of gastrointestin al tract, unspecified 05/29/2006 01/18/2022 Headache(784.0) 01/21/2006 01/18/2022 documented as of this encounter (statuses as of 08/19/2023) [facility] History of Past illness Narrative* Problem Noted Date Diagnosed Date Resolved Date COPD with chronic bronchitis 03/31/2019 01/18/2022 Screen for colon cancer 08/05/201801/01 Overview: Added automatically from request for surgery [id number] Chronic GERD 02/07/2016 02/07/2016 Special screening for malign ant neoplasms, colon 07/26/2015 07/26/2015 GERD (gastroesophageal reflux disease) 07/19/2015 01/18/2022 ADD (attention deficit disorder) 07/18/2015 01/18/2022 Substance abuse rule out 03/15/2015 Herpes 11/30/2014 02/28/2016 Overview: Positive for types 1 and 2. Duodenitis without mention of hemorrhage 02/03/2012 01/18/2022 Acute gastritis without mention of hemorrhage 02/03/20 12 01/18/2022 Hyperlipidemia 12/18/2011 01/18/2022 Pain in joint, lower leg 07/13/2007 Bipolar disorder, unspecified 02/20/2007 01/18/2022 Chest pain, unspecified 01/23/200701/01 Backache, unspecified 06/18/20062021 PROCTITIS IDIOPATHIC 06/04/2006 022 Hemorrhage of gastrointestin al tract, unspecified 05/29/2006 01/18/2022 Headache(784.0) 01/21/2006 01/18/2022 documented as of this encounter (statuses as of 08/21/2023) [facility] History of Past illness Narrative* Problem Noted Date Diagnosed Date Resolved Date COPD with chronic bronchitis 03/31/2019 01/18/2022 Screen for colon cancer 08/05/201801/01 Overview: Added automatically from request for surgery [id number] Chronic GERD 02/07/2016 02/07/2016 Special screening for malign ant neoplasms, colon 07/26/2015 07/26/2015 GERD (gastroesophageal reflux disease) 07/19/2015 01/18/2022 ADD (attention deficit disorder) 07/18/2015 01/18/2022 Substance abuse rule out 03/15/2015 Herpes 11/30/2014 02/28/2016 Overview: Positive for types 1 and 2. Duodenitis without mention of hemorrhage 02/03/2012 01/18/2022 Acute gastritis without mention of hemorrhage 02/03/2001/18/2022 Hyperlipidemia 12/18/2011 01/18/2022 Pain in joint, lower leg 07/13/2007 Bipolar disorder, unspecified 02/20/2007 01/18/2022 Chest pain, unspecified 01/23/200701/01 Backache, unspecified 06/18/20062021 PROCTITIS IDIOPATHIC 06/04/2006 022 Hemorrhage of gastrointestin al tract, unspecified 05/29/2006 01/18/2022 Headache(784.0) 01/21/2006 01/18/2022 documented as of this encounter (statuses as of 08/25/2023) [facility] of Past illness Narrative* Problem Noted Date Diagnosed Date Resolved Date COPD with chronic bronchitis 03/31/2019 01/18/2022 Screen for colon cancer 08/05/201801/01 Overview: Added automatically from request for surgery [id number] Chronic GERD 02/07/2016 02/07/2016 Special screening for malign ant neoplasms, colon 07/26/2015 07/26/2015 GERD (gastroesophageal reflux disease) 07/19/2015 01/18/2022 ADD (attention deficit disorder) 07/18/2015 01/18/2022 Substance abuse rule out 03/15/2015 Herpes 11/30/2014 02/28/2016 Overview: Positive for types 1 and 2. Duodenitis without mention of hemorrhage 02/03/2012 01/18/2022 Acute gastritis without mention of hemorrhage 02/03/20 12 01/18/2022 Hyperlipidemia 12/18/2011 01/18/2022 Pain in joint, lower leg 07/13/2007 Bipolar disorder, unspecified 02/20/2007 01/18/2022 Chest pain, unspecified 01/23/200701/01 Backache, unspecified 06/18/20062021 PROCTITIS IDIOPATHIC 06/04/2006 022 Hemorrhage of gastrointestin al tract, unspecified 05/29/2006 01/18/2022 Headache(784.0) 01/21/2006 01/18/2022 documented as of this encounter (statuses as of 09/07/2023) [facility] of Past illness Narrative* Problem Noted Date Diagnosed Date Resolved Date COPD with chronic bronchitis 03/31/2019 01/18/2022 Screen for colon cancer 08/05/201801/01 Overview: Added automatically from request for surgery [id number] Chronic GERD 02/07/2016 02/07/2016 Special screening for malign ant neoplasms, colon 07/26/2015 07/26/2015 GERD (gastroesophageal reflux disease) 07/19/2015 01/18/2022 ADD (attention deficit disorder) 07/18/2015 01/18/2022 Substance abuse rule out 03/15/2015 Herpes 11/30/2014 02/28/2016 Overview: Positive for types 1 and 2. Duodenitis without mention of hemorrhage 02/03/2012 01/18/2022 Acute gastritis without mention of hemorrhage 02/03/20 12 01/18/2022 Hyperlipidemia 12/18/2011 01/18/2022 Pain in joint, lower leg 07/13/2007 Bipolar disorder, unspecified 02/20/2007 01/18/2022 Chest pain, unspecified 01/23/200701/01 Backache, unspecified 06/18/20062021 PROCTITIS IDIOPATHIC 06/04/2006 022 Hemorrhage of gastrointestin al tract, unspecified 05/29/2006 01/18/2022 Headache(784.0) 01/21/2006 01/18/2022 documented as of this encounter (statuses as of 09/15/2023) [facility] of Past illness Narrative* Problem Noted Date Diagnosed Date Resolved Date COPD with chronic bronchitis 03/31/2019 01/18/2022 Screen for colon cancer 08/05/201801/01 Overview: Added automatically from request for surgery [id number] Chronic GERD 02/07/2016 02/07/2016 Special screening for malign ant neoplasms, colon 07/26/2015 07/26/2015 GERD (gastroesophageal reflux disease) 07/19/2015 01/18/2022 ADD (attention deficit disorder) 07/18/2015 01/18/2022 Substance abuse rule out 03/15/2015 Herpes 11/30/2014 02/28/2016 Overview: Positive for types 1 and 2. Duodenitis without mention of hemorrhage 02/03/2012 01/18/2022 Acute gastritis without mention of hemorrhage 02/03/20 12 01/18/2022 Hyperlipidemia 12/18/2011 01/18/2022 Pain in joint, lower leg 07/13/2007 Bipolar disorder, unspecified 02/20/2007 01/18/2022 Chest pain, unspecified 01/23/200701/01 Backache, unspecified 06/18/20062021 PROCTITIS IDIOPATHIC 06/04/2006 022 Hemorrhage of gastrointestin al tract, unspecified 05/29/2006 01/18/2022 Headache(784.0) 01/21/2006 01/18/2022 documented as of this encounter (statuses as of 09/18/2023) [facility] of Past illness Narrative* Problem Noted Date Diagnosed Date Resolved Date COPD with chronic bronchitis 03/31/2019 01/18/2022 Screen for colon cancer 08/05/201801/01 Overview: Added automatically from request for surgery [id number] Chronic GERD 02/07/2016 02/07/2016 Special screening for malign ant neoplasms, colon 07/26/2015 07/26/2015 GERD (gastroesophageal reflux disease) 07/19/2015 01/18/2022 ADD (attention deficit disorder) 07/18/2015 01/18/2022 Substance abuse rule out 03/15/2015 Herpes 11/30/2014 02/28/2016 Overview: Positive for types 1 and 2. Duodenitis without mention of hemorrhage 02/03/2012 01/18/2022 Acute gastritis without mention of hemorrhage 02/03/20 12 01/18/2022 Hyperlipidemia 12/18/2011 01/18/2022 Pain in joint, lower leg 07/13/2007 Bipolar disorder, unspecified 02/20/2007 01/18/2022 Chest pain, unspecified 01/23/200701/01 Backache, unspecified 06/18/20062021 PROCTITIS IDIOPATHIC 06/04/2006 022 Hemorrhage of gastrointestin al tract, unspecified 05/29/2006 01/18/2022 Headache(784.0) 01/21/2006 01/18/2022 documented as of this encounter (statuses as of 09/19/2023) [facility]-01[facility]2019 History of Past illness Narrative* Problem Noted Date Diagnosed Date Resolved Date COPD with chronic bronchitis 03/31/2019 01/18/2022 Screen for colon cancer 08/05/201801/01 Overview: Added automatically from request for surgery [id number] Chronic GERD 02/07/2016 02/07/2016 Special screening for malign ant neoplasms, colon 07/26/2015 07/26/2015 GERD (gastroesophageal reflux disease) 07/19/2015 01/18/2022 ADD (attention deficit disorder) 07/18/2015 01/18/2022 Substance abuse rule out 03/15/2015 Herpes 11/30/2014 02/28/2016 Overview: Positive for types 1 and 2. Duodenitis without mention of hemorrhage 02/03/2012 01/18/2022 Acute gastritis without mention of hemorrhage 02/03/20 12 01/18/2022 Hyperlipidemia 12/18/2011 01/18/2022 Pain in joint, lower leg 07/13/2007 Bipolar disorder, unspecified 02/20/2007 01/18/2022 Chest pain, unspecified 01/23/200701/01 Backache, unspecified 06/18/20062021 PROCTITIS IDIOPATHIC 06/04/2006 022 Hemorrhage of gastrointestin al tract, unspecified 05/29/2006 01/18/2022 Headache(784.0) 01/21/2006 01/18/2022 documented as of this encounter (statuses as of 09/26/2023) [facility]2019 History of Past illness Narrative* Problem Noted Date Diagnosed Date Resolved Date COPD with chronic bronchitis 03/31/2019 01/18/2022 Screen for colon cancer 08/05/201801/01 Overview: Added automatically from request for surgery [id number] Chronic GERD 02/07/2016 02/07/2016 Special screening for malign ant neoplasms, colon 07/26/2015 07/26/2015 GERD (gastroesophageal reflux disease) 07/19/2015 01/18/2022 ADD (attention deficit disorder) 07/18/2015 01/18/2022 Substance abuse rule out 03/15/2015 Herpes 11/30/2014 02/28/2016 Overview: Positive for types 1 and 2. Duodenitis without mention of hemorrhage 02/03/2012 01/18/2022 Acute gastritis without mention of hemorrhage 02/03/20 12 01/18/2022 Hyperlipidemia 12/18/2011 01/18/2022 Pain in joint, lower leg 07/13/2007 Bipolar disorder, unspecified 02/20/2007 01/18/2022 Chest pain, unspecified 01/23/200701/01 Backache, unspecified 06/18/20062021 PROCTITIS IDIOPATHIC 06/04/2006 022 Hemorrhage of gastrointestin al tract, unspecified 05/29/2006 01/18/2022 Headache(784.0) 01/21/2006 01/18/2022 documented as of this encounter (statuses as of 10/05/2023) [facility] History of Past illness Narrative* Problem Noted Date Diagnosed Date Resolved Date COPD with chronic bronchitis 03/31/2019 01/18/2022 Screen for colon cancer 08/05/201801/01 Overview: Added automatically from request for surgery [id number] Chronic GERD 02/07/2016 02/07/2016 Special screening for malign ant neoplasms, colon 07/26/2015 07/26/2015 GERD (gastroesophageal reflux disease) 07/19/2015 01/18/2022 ADD (attention deficit disorder) 07/18/2015 01/18/2022 Substance abuse rule out 03/15/2015 Herpes 11/30/2014 02/28/2016 Overview: Positive for types 1 and 2. Duodenitis without mention of hemorrhage 02/03/2012 01/18/2022 Acute gastritis without mention of hemorrhage 02/03/20 12 01/18/2022 Hyperlipidemia 12/18/2011 01/18/2022 Pain in joint, lower leg 07/13/2007 Bipolar disorder, unspecified 02/20/2007 01/18/2022 Chest pain, unspecified 01/23/200701/01 Backache, unspecified 06/18/20062021 PROCTITIS IDIOPATHIC 06/04/2006 022 Hemorrhage of gastrointestin al tract, unspecified 05/29/2006 01/18/2022 Headache(784.0) 01/21/2006 01/18/2022 documented as of this encounter (statuses as of 10/05/2023) [facility] History of Past illness Narrative* Problem Noted Date Diagnosed Date Resolved Date COPD with chronic bronchitis 03/31/2019 01/18/2022 Screen for colon cancer 08/05/201801/01 Overview: Added automatically from request for surgery [id number] Chronic GERD 02/07/2016 02/07/2016 Special screening for malign ant neoplasms, colon 07/26/2015 07/26/2015 GERD (gastroesophageal reflux disease) 07/19/2015 01/18/2022 ADD (attention deficit disorder) 07/18/2015 01/18/2022 Substance abuse rule out 03/15/2015 Herpes 11/30/2014 02/28/2016 Overview: Positive for types 1 and 2. Duodenitis without mention of hemorrhage 02/03/2012 01/18/2022 Acute gastritis without mention of hemorrhage 02/03/20 12 01/18/2022 Hyperlipidemia 12/18/2011 01/18/2022 Pain in joint, lower leg 07/13/2007 Bipolar disorder, unspecified 02/20/2007 01/18/2022 Chest pain, unspecified 01/23/200701/01 Backache, unspecified 06/18/20062021 PROCTITIS IDIOPATHIC 06/04/2006 022 Hemorrhage of gastrointestin al tract, unspecified 05/29/2006 01/18/2022 Headache(784.0) 01/21/2006 01/18/2022 documented as of this encounter (statuses as of 10/13/2023) [facility] History of Past illness Narrative* Problem Noted Date Diagnosed Date Resolved Date COPD with chronic bronchitis 03/31/2019 01/18/2022 Screen for colon cancer 08/05/201801/01 Overview: Added automatically from request for surgery [id number] Chronic GERD 02/07/2016 02/07/2016 Special screening for malign ant neoplasms, colon 07/26/2015 07/26/2015 GERD (gastroesophageal reflux disease) 07/19/2015 01/18/2022 ADD (attention deficit disorder) 07/18/2015 01/18/2022 Substance abuse rule out 03/15/2015 Herpes 11/30/2014 02/28/2016 Overview: Positive for types 1 and 2. Duodenitis without mention of hemorrhage 02/03/2012 01/18/2022 Acute gastritis without mention of hemorrhage 02/03/20 12 01/18/2022 Hyperlipidemia 12/18/2011 01/18/2022 Pain in joint, lower leg 07/13/2007 Bipolar disorder, unspecified 02/20/2007 01/18/2022 Chest pain, unspecified 01/23/200701/01 Backache, unspecified 06/18/20062021 PROCTITIS IDIOPATHIC 06/04/2006 022 Hemorrhage of gastrointestin al tract, unspecified 05/29/2006 01/18/2022 Headache(784.0) 01/21/2006 01/18/2022 documented as of this encounter (statuses as of 11/05/2023) [facility] History of Past illness Narrative* Problem Noted Date Diagnosed Date Resolved Date COPD with chronic bronchitis 03/31/2019 01/18/2022 Screen for colon cancer 08/05/201801/01 Overview: Added automatically from request for surgery [id number] Chronic GERD 02/07/2016 02/07/2016 Special screening for malign ant neoplasms, colon 07/26/2015 07/26/2015 GERD (gastroesophageal reflux disease) 07/19/2015 01/18/2022 ADD (attention deficit disorder) 07/18/2015 01/18/2022 Substance abuse rule out 03/15/2015 Herpes 11/30/2014 02/28/2016 Overview: Positive for types 1 and 2. Duodenitis without mention of hemorrhage 02/03/2012 01/18/2022 Acute gastritis without mention of hemorrhage 02/03/20 12 01/18/2022 Hyperlipidemia 12/18/2011 01/18/2022 Pain in joint, lower leg 07/13/2007 Bipolar disorder, unspecified 02/20/2007 01/18/2022 Chest pain, unspecified 01/23/200701/01 Backache, unspecified 06/18/20062021 PROCTITIS IDIOPATHIC 06/04/2006 022 Hemorrhage of gastrointestin al tract, unspecified 05/29/2006 01/18/2022 Headache(784.0) 01/21/2006 01/18/2022 documented as of this encounter (statuses as of 11/05/2023) [facility] History of Past illness Narrative* Problem Noted Date Diagnosed Date Resolved Date COPD with chronic bronchitis 03/31/2019 01/18/2022 Screen for colon cancer 08/05/201801/01 Overview: Added automatically from request for surgery [id number] Chronic GERD 02/07/2016 02/07/2016 Special screening for malign ant neoplasms, colon 07/26/2015 07/26/2015 GERD (gastroesophageal reflux disease) 07/19/2015 01/18/2022 ADD (attention deficit disorder) 07/18/2015 01/18/2022 Substance abuse rule out 03/15/2015 Herpes 11/30/2014 02/28/2016 Overview: Positive for types 1 and 2. Duodenitis without mention of hemorrhage 02/03/2012 01/18/2022 Acute gastritis without mention of hemorrhage 02/03/2001/18/2022 Hyperlipidemia 12/18/2011 01/18/2022 Pain in joint, lower leg 07/13/2007 Bipolar disorder, unspecified 02/20/2007 01/18/2022 Chest pain, unspecified 01/23/200701/01 Backache, unspecified 06/18/20062021 PROCTITIS IDIOPATHIC 06/04/2006 022 Hemorrhage of gastrointestin al tract, unspecified 05/29/2006 01/18/2022 Headache(784.0) 01/21/2006 01/18/2022 documented as of this encounter (statuses as of 11/13/2023) [facility] History of Past illness Narrative* Problem Noted Date Diagnosed Date Resolved Date COPD with chronic bronchitis 03/31/2019 01/18/2022 Screen for colon cancer 08/05/201801/01 Overview: Added automatically from request for surgery [id number] Chronic GERD 02/07/2016 02/07/2016 Special screening for malign ant neoplasms, colon 07/26/2015 07/26/2015 GERD (gastroesophageal reflux disease) 07/19/2015 01/18/2022 ADD (attention deficit disorder) 07/18/2015 01/18/2022 Substance abuse rule out 03/15/2015 Herpes 11/30/2014 02/28/2016 Overview: Positive for types 1 and 2. Duodenitis without mention of hemorrhage 02/03/2012 01/18/2022 Acute gastritis without mention of hemorrhage 02/03/2001/18/2022 Hyperlipidemia 12/18/2011 01/18/2022 Pain in joint, lower leg 07/13/2007 Bipolar disorder, unspecified 02/20/2007 01/18/2022 Chest pain, unspecified 01/23/200701/01 Backache, unspecified 06/18/20062021 PROCTITIS IDIOPATHIC 06/04/2006 022 Hemorrhage of gastrointestin al tract, unspecified 05/29/2006 01/18/2022 Headache(784.0) 01/21/2006 01/18/2022 documented as of this encounter (statuses as of 01/02/2024) [facility] note* Diagnosis Bilateral elbow joint pain- Primary [facility] Unspecified constipation [facility] Open wound of toe, initial encounter- Primary Onychomycosis of toenail Dermatophytosis of nail [facility] Diagnosis Abdominal pain, unspecified abdominal location- Primary [facility] Diagnosis Bilateral elbow joint pain Lateral epicondylitis of both elbows Lateral epicondylitis of elbow [facility] Bilateral leg pain Pain in limb Multiple sclerosis (HCC) Multiple sclerosis Attention deficit disorder, unspecified hyperactivity presence [facility] Bilateral elbow joint pain [facility] Chronic elbow pain, left- Primary Bilateral elbow joint pain Lateral epicondylitis of both elbows Lateral epicondylitis of elbow [facility] Diagnosis CML (chronic myelocytic leukemia) (HCC) Chronic myeloid leukemia, without mention of having achieved remission [facility] Screening for ischemic heart disease- Primary [facility] Diagnosis Chest pain, unspecified type [facility]* Diagnosis Vitamin D deficiency Unspecified vitamin D deficiency [facility]* Diagnosis Bilateral elbow joint pain Lateral epicondylitis of both elbows Lateral epicondylitis of elbow [facility]* Diagnosis Spontaneous bruising- Primary Spontaneous ecchymoses Bilateral leg pain Pain in limb Multiple sclerosis (HCC) Multiple sclerosis Vitamin D deficiency Unspecified vitamin D deficiency Fatigue, unspecified type Cervicalgia CML (chronic myeloid leukemia) (HCC) Chronic myeloid leukemia, without mention of having achieved remission PAD (peripheral artery disease) (HCC) Peripheral vascular disease, unspecified Bruit of right carotid artery Attention deficit disorder, unspecified hyperactivity presence [facility] Diagnosis CML (chronic myeloid leukemia) (HCC)- Primary Chronic myeloid leukemia, without mention of having achieved remission Smoldering myeloma Multiple myeloma, without mention of having achieved remission Splenomegaly [facility]* Diagnosis Multiple sclerosis (HCC) Multiple sclerosis Spontaneous bruising Spontaneous ecchymoses Fatigue, unspecified type Cervicalgia CML (chronic myeloid leukemia) (HCC) Chronic myeloid leukemia, without mention of having achieved remission [facility] Diagnosis CML (chronic myeloid leukemia) (HCC) Chronic myeloid leukemia, without mention of having achieved remission Smoldering myeloma Multiple myeloma, without mention of having achieved remission Splenomegaly [facility] Diagnosis Gastroesophageal reflux disease without esophagitis- Primary Esophageal reflux History of peptic ulcer disease Personal history of peptic ulcer disease Pain of upper abdomen Abdominal pain, other specified site [facility]* Diagnosis CML (chronic myeloid leukemia) (HCC)- Primary Chronic myeloid leukemia, without mention of having achieved remission Smoldering myeloma Multiple myeloma, without mention of having achieved remission [facility]* Diagnosis CML (chronic myelocytic leukemia) (HCC)- Primary Chronic myeloid leukemia, without mention of having achieved remission [facility]* Diagnosis Attention deficit disorder, unspecified hyperactivity presence Bilateral leg pain Pain in limb Multiple sclerosis (HCC) Multiple sclerosis [facility] Diagnosis Stage 2 moderate COPD by GOLD classification ([facility]) [facility] CML (chronic myelocytic leukemia) (HCC) Chronic myeloid leukemia, without mention of having achieved remission [facility] History of peptic ulcer disease- Primary Personal history of peptic ulcer disease Gastroesophageal reflux disease without esophagitis Esophageal reflux [facility] Diagnosis Attention deficit disorder, unspecified hyperactivity presence Bilateral leg pain Pain in limb Multiple sclerosis (HCC) Multiple sclerosis [facility] Diagnosis Abdominal pain, unspecified abdominal location- Primary Gastroesophageal reflux disease without esophagitis Esophageal reflux History of peptic ulcer disease Personal history of peptic ulcer disease [facility] Diagnosis Meibomian gland dysfunction (MGD) of upper and lower lids of both eyes- Primary Myopia, bilateral Myopia Presbyopia [facility] Diagnosis CML (chronic myelocytic leukemia) (HCC)- Primary Chronic myeloid leukemia, without mention of having achieved remission [facility] Diagnosis Lateral epicondylitis of left elbow- Primary Lateral epicondylitis of elbow Lateral epicondylitis of left elbow Lateral epicondylitis of elbow [facility] Diagnosis Abdominal pain, unspecified abdominal location Gastroesophageal reflux disease without esophagitis Esophageal reflux History of peptic ulcer disease Personal history of peptic ulcer disease Lateral epicondylitis of left elbow Lateral epicondylitis of elbow [facility] Diagnosis Bilateral leg pain- Primary Pain in limb Need for influenza vaccination Need for prophylactic vaccination and inoculation against influenza Multiple sclerosis (HCC) Multiple sclerosis Attention deficit disorder, unspecified hyperactivity presence Screening for osteoporosis Special screening for osteoporosis CML (chronic myeloid leukemia) (HCC) Chronic myeloid leukemia, without mention of having achieved remission Vitamin D deficiency Unspecified vitamin D deficiency Other hyperlipidemia Vitamin B12 deficiency Other B-complex deficiencies Other specified disorders of bone density and structure, multiple sites Lateral epicondylitis of left elbow Lateral epicondylitis of elbow [facility] Vitamin B12 deficiency- Primary Other B-complex deficiencies Lateral epicondylitis of left elbow Lateral epicondylitis of elbow [facility] Diagnosis Tobacco abuse Tobacco use disorder Lateral epicondylitis of left elbow Lateral epicondylitis of elbow [facility] Diagnosis Chronic elbow pain, left- Primary Lateral epicondylitis of both elbows Lateral epicondylitis of elbow [facility]* Diagnosis CML (chronic myelocytic leukemia) (HCC)- Primary Chronic myeloid leukemia, without mention of having achieved remission [facility]* Diagnosis CML (chronic myelocytic leukemia) (HCC)- Primary Chronic myeloid leukemia, without mention of having achieved remission Smoldering myeloma Multiple myeloma, without mention of having achieved remission [facility]* Diagnosis Screening for osteoporosis Special screening for osteoporosis CML (chronic myeloid leukemia) (HCC) Chronic myeloid leukemia, without mention of having achieved remission Other specified disorders of bone density and structure, multiple sites [facility]* Diagnosis Chronic idiopathic constipation Unspecified constipation [facility]* Diagnosis CML (chronic myeloid leukemia) (HCC)- Primary Chronic myeloid leukemia, without mention of having achieved remission Smoldering myeloma Multiple myeloma, without mention of having achieved remission [facility]* Diagnosis CML (chronic myelocytic leukemia) (HCC) Chronic myeloid leukemia, without mention of having achieved remission [facility] Diagnosis De Quervain's tenosynovitis- Primary Radial styloid tenosynovitis Left elbow pain Pain in joint, upper arm Chronic elbow pain, right Right lateral epicondylitis Lateral epicondylitis of elbow [facility] Diagnosis Right lateral epicondylitis- Primary Lateral epicondylitis of elbow Right lateral epicondylitis Lateral epicondylitis of elbow [facility]* Diagnosis Attention deficit disorder, unspecified hyperactivity presence Bilateral leg pain Pain in limb Multiple sclerosis ([facility]) Multiple sclerosis Right lateral epicondylitis Lateral epicondylitis of elbow [facility]* Diagnosis Stage 2 moderate COPD by GOLD classification ([facility]) Right lateral epicondylitis Lateral epicondylitis of elbow [facility] Diagnosis No-show for appointment- Primary Right lateral epicondylitis Lateral epicondylitis of elbow [facility]* Diagnosis CML (chronic myelocytic leukemia) (HCC)- Primary Chronic myeloid leukemia, without mention of having achieved remission Right lateral epicondylitis Lateral epicondylitis of elbow [facility]* Diagnosis Attention deficit disorder, unspecified hyperactivity presence- Primary Wheezing Tobacco use Tobacco use disorder Multiple sclerosis (HCC) Multiple sclerosis Bilateral leg pain Pain in limb Stage 2 moderate COPD by GOLD classification ([facility]) Gastroesophageal reflux disease with esophagitis without hemorrhage CML (chronic myeloid leukemia) ([facility]) Chronic myeloid leukemia, without mention of having achieved remission PAD (peripheral artery disease) ([facility]) Peripheral vascular disease, unspecified [facility] Diagnosis CML (chronic myelocytic leukemia) ([facility])- Primary Chronic myeloid leukemia, without mention of having achieved remission [facility]* Diagnosis Stage 2 moderate COPD by GOLD classification ([facility]) [facility] Diagnosis Attention deficit disorder, unspecified hyperactivity presence Bilateral leg pain Pain in limb Multiple sclerosis ([facility]) Multiple sclerosis [facility] Diagnosis Attention deficit disorder, unspecified hyperactivity presence [facility]* Diagnosis CML (chronic myelocytic leukemia) ([facility])- Primary Chronic myeloid leukemia, without mention of having achieved remission Smoldering myeloma Multiple myeloma, without mention of having achieved remission [facility]* Diagnosis Attention deficit disorder, unspecified hyperactivity presence [facility]* Diagnosis Right lateral epicondylitis- Primary Lateral epicondylitis of elbow [facility]* Diagnosis Stage 2 moderate COPD by GOLD classification ([facility])- Primary Chest pain, unspecified type Dyspnea and respiratory abnormalities Other dyspnea and respiratory abnormality Abnormal CT scan, lung Other nonspecific abnormal finding of lung field Gastroesophageal reflux disease, unspecified whether esophagitis present Dysphagia, unspecified type [facility] Diagnosis Atypical nevus of right upper back excluding scapular region- Primary Attention deficit disorder, unspecified hyperactivity presence Bilateral leg pain Pain in limb Multiple sclerosis (HCC) Multiple sclerosis Atypical nevus of back Benign neoplasm of skin of trunk, except scrotum Atypical nevus of flank Benign neoplasm of skin of trunk, except scrotum Atypical nevus of left lower back Benign neoplasm of skin of trunk, except scrotum [facility]* Diagnosis CML (chronic myelocytic leukemia) (HCC) Chronic myeloid leukemia, without mention of having achieved remission [facility]* Diagnosis CML (chronic myelocytic leukemia) (HCC)- Primary Chronic myeloid leukemia, without mention of having achieved remission [facility]* Diagnosis Stage 2 moderate COPD by GOLD classification (HCC) Abnormal CT scan, lung Other nonspecific abnormal finding of lung field [facility] Diagnosis Stage 2 moderate COPD by GOLD classification ([facility]) Abnormal CT scan, lung Other nonspecific abnormal finding of lung field [facility]* Diagnosis Stage 2 moderate COPD by GOLD classification ([facility]) [facility] Diagnosis Meibomian gland dysfunction (MGD) of upper and lower lids of both eyes- Primary Myopia, bilateral Myopia Presbyopia [facility] Bilateral leg pain Pain in limb Multiple sclerosis (HCC) [facility] Diagnosis Attention deficit disorder, unspecified hyperactivity presence Bilateral leg pain Pain in limb Multiple sclerosis (HCC) [facility] Diagnosis Chronic idiopathic constipation Unspecified constipation [facility] Diagnosis CML (chronic myeloid leukemia) (HCC)- Primary Chronic myeloid leukemia, without mention of having achieved remission Smoldering myeloma Multiple myeloma, without mention of having achieved remission [facility] Diagnosis Smoldering myeloma- Primary Multiple myeloma, without mention of having achieved remission [facility] Diagnosis CML (chronic myeloid leukemia) (HCC)- Primary Chronic myeloid leukemia, without mention of having achieved remission MGUS (monoclonal gammopathy of unknown significance) Monoclonal paraproteinemia Immunocompromised state (HCC) Unspecified immunity deficiency [facility] Diagnosis CML (chronic myelocytic leukemia) (HCC) Chronic myeloid leukemia, without mention of having achieved remission [facility] Diagnosis CML (chronic myelocytic leukemia) (HCC)- Primary Chronic myeloid leukemia, without mention of having achieved remission [facility] Diagnosis Attention deficit disorder, unspecified hyperactivity presence- Primary Bilateral leg pain Pain in limb Multiple sclerosis (HCC) Multiple sclerosis CML (chronic myeloid leukemia) (HCC) Chronic myeloid leukemia, without mention of having achieved remission Vitamin B12 deficiency Other B-complex deficiencies Vitamin D deficiency Unspecified vitamin D deficiency Other hyperlipidemia Hyperglycemia Other abnormal glucose PAD (peripheral artery disease) (HCC) Peripheral vascular disease, unspecified Immunocompromised state (HCC) Unspecified immunity deficiency Other schizophrenia (HCC) [facility] Multiple sclerosis (HCC) Multiple sclerosis Multiple sclerosis, relapsing-remitting (HCC) Multiple sclerosis RLS (restless legs syndrome) Restless legs syndrome (RLS) Malaise and fatigue Other malaise and fatigue Imbalance Abnormality of gait [facility] Diagnosis Bilateral leg pain Pain in limb Multiple sclerosis (HCC) [facility] Diagnosis CML (chronic myelocytic leukemia) (HCC)- Primary Chronic myeloid leukemia, without mention of having achieved remission [facility] Diagnosis CML (chronic myelocytic leukemia) (HCC)- Primary Chronic myeloid leukemia, without mention of having achieved remission [facility] Diagnosis Attention deficit disorder, unspecified hyperactivity presence [facility] Diagnosis Bilateral leg pain Pain in limb Multiple sclerosis (HCC) Multiple [facility] Diagnosis CML (chronic myelocytic leukemia) (HCC)- Primary Chronic myeloid leukemia, without mention of having achieved remission MGUS (monoclonal gammopathy of unknown significance) Monoclonal paraproteinemia Immunocompromised state (HCC) Unspecified immunity deficiency [facility] Diagnosis Hypercalcemia- Primary CML (chronic myelocytic leukemia) (HCC) Chronic myeloid leukemia, without mention of having achieved remission [facility] Diagnosis Tachypnea- Primary Bilateral leg pain Pain in limb Multiple sclerosis (HCC) Multiple sclerosis Attention deficit disorder, unspecified hyperactivity presence Chest pain, unspecified type [facility] Diagnosis CML (chronic myeloid leukemia) (HCC)- Primary Chronic myeloid leukemia, without mention of having achieved remission Smoldering myeloma Multiple myeloma, without mention of having achieved remission [facility] Diagnosis CML (chronic myelocytic leukemia) (HCC)- Primary Chronic myeloid leukemia, without mention of having achieved remission [facility] Diagnosis Bilateral leg pain Pain in limb Multiple sclerosis (HCC) Multiple sclerosis Attention deficit disorder, unspecified hyperactivity presence [facility] Diagnosis CML (chronic myeloid leukemia) (HCC)- Primary Chronic myeloid leukemia, without mention of having achieved remission Smoldering myeloma Multiple myeloma, without mention of having achieved remission [facility] Diagnosis CML (chronic myeloid leukemia) (HCC)- Primary Chronic myeloid leukemia, without mention of having achieved remission Smoldering myeloma Multiple myeloma, without mention of having achieved remission Need for influenza vaccination Need for prophylactic vaccination and inoculation against influenza [facility] Diagnosis Attention deficit disorder, unspecified hyperactivity presence Bilateral leg pain Pain in limb Multiple sclerosis (HCC) [facility] Diagnosis Wheezing Tobacco use Tobacco use disorder [facility] Diagnosis Multiple sclerosis (HCC) [facility] sclerosis [facility] Diagnosis CML (chronic myelocytic leukemia) (HCC)- Primary Chronic myeloid leukemia, without mention of having achieved remission [facility] Diagnosis CML (chronic myelocytic leukemia) (HCC)- Primary Chronic myeloid leukemia, without mention of having achieved remission [facility] Diagnosis Vitamin B12 deficiency- Primary Other B-complex deficiencies Atypical nevus of left upper back excluding scapular region Benign neoplasm of skin of trunk, except scrotum Atypical nevus of left lower back Benign neoplasm of skin of trunk, except scrotum Multiple myeloma not having achieved remission (HCC) Multiple myeloma, without mention of having achieved remission [facility] Diagnosis CML (chronic myelocytic leukemia) (HCC)- Primary Chronic myeloid leukemia, without mention of having achieved remission [facility] Diagnostic Procedure Only (Routine) - Pending Review Specialty Diagnoses / Procedures Referred By Marissa german Referred To Contact XR IMAGING Diagnoses Bilateral elbow joint pain Procedures XR ELBOW GENERAL 2V AP/LAT LEFT RADEX ELBOW 2 VIEWS Jersey Cole MD [address] [place] [address] Xr Imaging Referral ID Status Reason Start Date Expiration Date Visits Requested Visits Authorized [id number] Pending Review Auto-Generat ed Referral 02/27/2022 03/29/2023 1 1 * Diagnostic Procedure Only (Routine) - Pending Review Specialty Diagnoses / Procedures Referred By Contac t Referred To Contact XR IMAGING Diagnoses Bilateral elbow joint pain Procedures XR ELBOW GENERAL 2V AP/LAT RIGHT RADEX ELBOW 2 VIEWS Jersey Cole MD [address] [place], [place] [address] [address] Xr Imaging Referral ID Status Reason Start Date Expiration Date Visits Requested Visits Authorized [id number] Pending Review Auto-Generat ed Referral 02/27/2022 03/29/2023 1 1 [facility] for referral (narrative)* Diagnostic Procedure Only (Routine) - Pending Review Specialty Diagnoses / Procedures Referred By Contac t Referred To Contact XR IMAGING Diagnoses Abdominal pain, unspecified abdominal location Procedures XR GI SMALL BOWEL FOLLOW-THRU RADIOLOGIC SMALL INTESTINE FOLLOW-THROUGH STUDY Ny Rodriguez APRN.CNP [address] [place] [id number] Xr Imaging Referral ID Status Reason Start Date Expiration Date Visits Requested Visits Authorized [id number] Pending Review Auto-Generat ed Referral 03/01/2022 03/31/2023 1 1 * Diagnostic Procedure Only (Routine) - Pending Review Specialty Diagnoses / Procedures Referred By Contac t Referred To Contact XR IMAGING Diagnoses Abdominal pain, unspecified abdominal location Procedures XR UPPER GI SINGLE CONTRAST RADIOLOGIC EXAM UPR GI TRC SINGLE CONTRAST STUDY Ny Rodriguez APRN.SANDWICH COUNTER ATTENDANT [address] [place] [address] Xr Imaging Referral ID Status Reason Start Date Expiration Date Visits Requested Visits Authorized [id number] Pending Review Auto-Generat ed Referral 03/15/2022 03/31/2023 1 1 [facility] for referral (narrative)* Diagnostic Procedure Only (Routine) - Closed Specialty Diagnoses / Procedures Referred By Contac t Referred To Contact XR IMAGING Diagnoses Bilateral elbow joint pain Procedures XR ELBOW GENERAL 2V AP/LAT LEFT RADEX ELBOW 2 VIEWS Jersey Cole MD [address] [place] [address] Xr Imaging Referral ID Status Reason Start Date Expiration Date V isits Requested Visits Authorized [id number] Closed Auto-Generate d Referral 02/27/2022 03/29/2023 1 1 * Diagnostic Procedure Only (Routine) - Closed Specialty Diagnoses / Procedures Referred By Contac t Referred To Contact XR IMAGING Diagnoses Bilateral elbow joint pain Procedures XR ELBOW GENERAL 2V AP/LAT RIGHT RADEX ELBOW 2 VIEWS Jersey Cole MD [address] [place] [address] Xr Imaging Referral ID Status Reason Start Date Expiration Date V isits Requested Visits Authorized [id number] Closed Auto-Generate d Referral 02/27/2022 03/29/2023 1 1 [facility] for referral (narrative)* Diagnostic Procedure Only (Routine) - Closed Specialty Diagnoses / Procedures Referred By Contac t Referred To Contact MOLECULAR & FUNCTIONAL IMAGING Diagnoses Chest pain, unspecified type Procedures NM CARDIAC PERF STRESS/PHARM MYOCARDIAL SPECT MULTIPLE STUDIES Noman Dean DO [address] [place] [address] Molecular & Functional Imaging [address] [place] [address] Referral ID Status Reason Start Date Expiration Date V isits Requested Visits Authorized [id number] Closed Auto-Generate d Referral 02/13/2022 03/15/2023 1 1 [facility] for referral (narrative)* Outpatient Procedure (Routine) - Pending Review Specialty Diagnoses / Procedures [facility] Diagnoses Gastroesophageal reflux disease without esophagitis History of peptic ulcer disease Pain of upper abdomen Procedures EGD DIAGNOSTIC EGD DIAGNOSTIC EGD DIAGNOSTIC ESOPHAGOGASTRODUODENOSC OPY TRANSORAL DIAGNOSTIC ESOPHAGOGASTRODUODENOSC OPY TRANSORAL DIAGNOSTIC ESOPHAGOGASTRODUODENOSC OPY TRANSORAL DIAGNOSTIC yN Rodriguez APRN.CNP [address] [place] [address] [address] Referral ID Status Reason Start Date Expiration Date Visits Requested Visits Authorized [id number] Pending Review Auto-Generat ed Referral 05/21/2022 05/21/2023 1 1 [facility] for referral (narrative)* Outpatient Procedure (Routine) - Pending Review Specialty Diagnoses / Procedures [facility] Diagnoses History of peptic ulcer disease Gastroesophageal reflux disease without esophagitis Procedures EGD DIAGNOSTIC ESOPHAGOGASTRODUODENOSC OPY TRANSORAL DIAGNOSTIC Ny Rodriguez APRN.SANDWICH COUNTER ATTENDANT [address] [place] [address] [address] Referral ID Status Reason Start Date Expiration Date Visits Requested Visits Authorized [id number] Pending Review Auto-Generat ed Referral 07/03/2022 07/03/2023 1 1 [facility] for referral (narrative)* Outpatient Procedure (Routine) - Authorized Specialty Diagnoses / Procedures Referred By Contac t Referred To [facility] Diagnoses Abdominal pain, unspecified abdominal location Gastroesophageal reflux disease without esophagitis History of peptic ulcer disease Procedures EGD DIAGNOSTIC ESOPHAGOGASTRODUODENOSC OPY TRANSORAL DIAGNOSTIC Ny Rodriguez APRN.CNP [address] [place] [address] [id number] [place] [address] Referral ID Status Reason Start Date Expiration Date Visits Requested Visits Authorized [id number] Authorized Auto-Generat ed Referral 07/18/2022 07/18/2023 1 1 [facility] for referral (narrative)* Outpatient Procedure (Routine) - Closed Specialty Diagnoses / Procedures Referred By Marissa t Referred To Contact [facility] Diagnoses Abdominal pain, unspecified abdominal location Gastroesophageal reflux disease without esophagitis History of peptic ulcer disease Procedures EGD DIAGNOSTIC ESOPHAGOGASTRODUODENOSC OPY TRANSORAL DIAGNOSTIC Ny Rodriguez APRN.CNP [address] [place] [address] [facility] [address] [address] Referral ID Status Reason Start Date Expiration Date V isits Requested Visits Authorized [id number] Closed Auto-Generate d Referral 07/18/2022 07/18/2023 1 1 [facility] for referral (narrative)* Outpatient Procedure (Routine) - Pending Review Specialty Diagnoses / Procedures Referred By Marissa t Referred To Contact [facility] Diagnoses CML (chronic myeloid leukemia) (HCC) Smoldering myeloma Procedures ECG COMPLETE ECG ROUTINE ECG W/LEAST 12 LDS W/I&R Otoniel Heaton DO [address] [place] [address] [facility] [address] [place] [address] Referral ID Status Reason Start Date Expiration Date Visits Requested Visits Authorized [id number] Pending Review Auto-Generat ed Referral 03/17/2023 03/13/2024 1 1 [facility] for referral (narrative)* Diagnostic Procedure Only (Routine) - Authorized Specialty Diagnoses / Procedures Referred By Contac t Referred To Contact MOLECULAR & FUNCTIONAL IMAGING Diagnoses Tachypnea Chest pain, unspecified type Procedures NM CARDIAC PERF STRESS/EXERCISE MYOCARDIAL SPECT MULTIPLE STUDIES Andrey Art APRN.SANDWICH COUNTER ATTENDANT [address] [phone] [facility] [address] [place] [address] Referral ID Status Reason Start Date Expiration Date Visits Requested Visits Authorized [id number] Authorized Auto-Generat ed Referral 06/26/2023 07/25/2024 1 1 [facility] for visit Narrative* Diagnostic Procedure Only (Routine) - Closed Specialty Diagnoses / Procedures Referred By Contac t Referred To Contact XR IMAGING Diagnoses Bilateral elbow joint pain Procedures XR ELBOW GENERAL 2V AP/LAT LEFT RADEX ELBOW 2 VIEWS Jersey Cole MD [address] [place] [address] Xr Imaging Referral ID Status Reason Start Date Expiration Date V isits Requested Visits Authorized [id number] Closed Auto-Generate d Referral 02/27/2022 03/29/2023 1 1 [facility] for visit Narrative* Diagnostic Procedure Only (Routine) - Closed Specialty Diagnoses / Procedures Referred By Contac t Referred To Contact [facility]LEC[facility] FUNCTIONAL [facility]AGING Diagnoses Chest pain, unspecified type Procedures NM CARDIAC PERF STRESS/PHARM MYOCARDIAL SPECT MULTIPLE STUDIES Noman Dean, DO [address] [phone] [facility] [address] [place] [address] Referral ID Status Reason Start Date Expiration Date V isits Requested Visits Authorized [id number] Closed Auto-Generate d Referral 02/13/2022 03/15/2023 1 1 [facility] for visit Narrative* Outpatient Procedure (Routine) - Closed Specialty Diagnoses / Procedures Referred By Contac t Referred To Contact [facility] Diagnoses Abdominal pain, unspecified abdominal location Gastroesophageal reflux disease without esophagitis History of peptic ulcer disease Procedures EGD DIAGNOSTIC ESOPHAGOGASTRODUODENOSC OPY TRANSORAL DIAGNOSTIC Ny Rodriguez, PRETTY.SANDWICH COUNTER ATTENDANT [address] [place] [address] [facility] [place] [address] Referral ID Status Reason Start Date Expiration Date V isits Requested Visits Authorized [id number] Closed Auto-Generate d Referral 07/18/2022 07/18/2023 1 1 [facility] Summary Purpose Family History No Family History Records FoundNo Family History Records FoundNo Family History Records FoundNo Family History Records Found Advance Directives No Advanced Directives Records FoundDocuments on File Type Date Recorded Patient Human Resources Benefits Coordinator Expl anation Advance Directive(s) 02/18/2022 12:18 PM Advance Directive(s) 01/25/2022 3:49 PM Advance Directive(s) 05/10/2021 12:32 PM Advance Directive(s) 05/01/2021 10:37 AM Advance Directive(s) 04/24/2021 2:13 PM Advance Directive(s) 02/15/2021 8:16 AM Advance Directive(s) 02/08/2021 12:05 PM Advance Directive(s) 01/03/2021 12:37 PM Advance Directive(s) 01/01/2021 12:27 PM wo greg Advance Directive(s) 12/26/2020 8:46 AM Advance Directive(s) 12/19/2020 2:30 PM Advance Directive(s) 04/21/2019 12:25 PM Advance Directive(s) 08/17/2018 12:59 PM Advance Directive(s) 02/07/2016 3:28 PM Advance Directive(s) 02/05/2016 9:24 AM Documents on File Type Date Recorded Patient Human Resources Benefits Coordinator Expl anation Advance Directive(s) 02/18/2022 12:18 PM Advance Directive(s) 01/25/2022 3:49 PM Advance Directive(s) 05/10/2021 12:32 PM Advance Directive(s) 05/01/2021 10:37 AM Advance Directive(s) 04/24/2021 2:13 PM Advance Directive(s) 02/15/2021 8:16 AM Advance Directive(s) 02/08/2021 12:05 PM Advance Directive(s) 01/03/2021 12:37 PM Advance Directive(s) 01/01/2021 12:27 PM wo greg Advance Directive(s) 12/26/2020 8:46 AM Advance Directive(s) 12/19/2020 2:30 PM Advance Directive(s) 04/21/2019 12:25 PM Advance Directive(s) 08/17/2018 12:59 PM Advance Directive(s) 02/07/2016 3:28 PM Advance Directive(s) 02/05/2016 9:24 AM Medications Administered Section Inactive Administered Medications - up to 3 most recent administrations Medication Order MAR Action Action Date Dose Rate Site betamethasone acetate-betamethasone sodium phosphate 3 mg injection (CELESTONE) 3 mg, Injection - FOR ORTHO USE ONLY, ONE TIME INJECTION, 1 dose, Starting on Fri04/04/22 at 1002, Until [place] 04/04/22 at 1002 Given 04/04/2022 10:02 AM EDT 3 mg lidocaine (PF) 10 mg/mL (1 %) 0.5 mL injection (XYLOCAINE) 0.5 mL, Injection - FOR ORTHO USE ONLY, ONE TIME INJECTION, 1 dose, Starting on Fri04/04/22 at 1002, Until [place] 04/04/22 at 1002 Given 04/04/2022 10:02 AM EDT 0.5 mL Active Administered Medications - up to 3 most recent administrations Medication Order MAR Action Action Date Dose Rate Site fluorescein-benoxinate 0.25-0.4 % 1 Drop (FLURESS) 1 Drop, BOTH EYES, DIRECTED, Starting on Fri07/25/22 at 1430, Until Fri07/26/22 at 0229, Administer for applanation tonometry. In the event of a Fluress shortage, administer Meg-Fluor 1 drop into both eyes as directed for applanation tonometry Given 07/25/2022 2:30 PM EDT 1 Drop PHENYLephrine 2.5 % 1 Drop (AK-DILATE, IZABEL-SYNEPHRINE) 1 Drop, BOTH EYES, DIRECTED, Starting on Fri07/25/22 at 1430, Until Fri07/26/22 at 0229, Administer for dilation PROTECT FROM LIGHT Given 07/25/2022 2:30 PM EDT 1 Drop proparacaine 0.5 % 1 Drop (ALCAINE) 1 Drop, BOTH EYES, DIRECTED, Starting on Fri07/25/22 at 1430, Until Fri07/26/22 at 0229, Administer for pneumo tonometry, tonopen tonometry, or pachymetry. In the event of a proparacaine shortage, administer tetracaine 0.5% ophthalmic drops 1 drop in the left eye as directed for pneumo tonometry, tonopen tonometry, or pachymetry Given 07/25/2022 2:30 PM EDT 1 Drop tropicamide 1 % 1 Drop (MYDRIACYL) 1 Drop, BOTH EYES, DIRECTED, Starting on Fri07/25/22 at 1430, Until Fri07/26/22 at 0229, Administer for dilation Given 07/25/2022 2:30 PM EDT 1 Drop Inactive Administered Medications - up to 3 most recent administrations Medication Order MAR Action Action Date Dose Rate Site NaCl 0.9% iv infusion 30 mL/hr, INTRAVENOUS, CONTINUOUS, Starting on Fri08/13/22 at 1700, Until Fri08/14/22 at 0416, Preprocedure Restarted 08/13/2022 4:52 PM EDT Reason for Referral Specialty Diagnoses / Procedures Referred By Marissa german Referred To Contact MR IMAGING Diagnoses Vitamin D deficiency Procedures MRI BRAIN WO/W IVCON MRI BRAIN BRAIN STEM W/O W/CONTRAST MATERIAL Mckenna Garcia PA-C [address] [place] [address] Mr Imaging Referral ID Status Reason Start Date Expiration Date V isits Requested Visits Authorized [id number] Closed Auto-Generate d Referral 02/15/2022 03/17/2023 1 1 Specialty Diagnoses / Procedures Referred By Marissa german Referred To Contact CT IMAGING Diagnoses Multiple sclerosis (HCC) Spontaneous bruising Fatigue, unspecified type Cervicalgia CML (chronic myeloid leukemia) (HCC) Procedures CT NECK SOFT TISSUE WO IVCON CT SOFT TISSUE NECK W/O CONTRAST MATERIAL Noman Dean DO [address] [place] [address] Ct Imaging Referral ID Status Reason Start Date Expiration Date Visits Requested Visits Authorized [id number] Authorized Auto-Generat ed Referral 05/13/2022 06/12/2023 1 1 Specialty Diagnoses / Procedures Referred By Contac t Referred [facility] Contact [facility] Diagnoses Multiple sclerosis (HCC) Fatigue, unspecified type Cervicalgia CML (chronic myeloid leukemia) (HCC) PAD (peripheral artery disease) (HCC) Bruit of right carotid artery Procedures US CAROTID ARTERIES APRIL VAS LAB DUPLEX SCAN EXTRACRANIAL ART COMPL BI STUDY Noman Dean, DO [address] [place] [address] [facility] [address] [place] [address] Referral ID Status Reason Start Date Expiration Date Visits Requested Visits Authorized [id number] Authorized Auto-Generat ed Referral 05/13/2022 05/13/2023 1 1 Referral ID Status Reason Start Date Expiration Date V isits Requested Visits Authorized [id number] Closed Auto-Generate d Referral 05/13/2022 06/12/2023 1 1 Specialty Diagnoses / Procedures Referred By Contac t Referred To Contact CT IMAGING Diagnoses Wheezing Tobacco use Procedures CT CHEST WO IVCON DIAGNOSTIC COMPUTED TOMOGRAPHY THORAX W/O CNTRST Noman Dean, DO [address] [place] [address] Ct Imaging Referral ID Status Reason Start Date Expiration Date Visits Requested Visits Authorized [id number] Authorized Auto-Generat ed Referral 12/12/2023 1 1 Specialty Diagnoses / Procedures Referred By Contac t Referred To Contact Gastroenterology Diagnoses Gastroesophageal reflux disease, unspecified whether esophagitis present Dysphagia, unspecified type Procedures CONSULT TO GASTROENTEROLOGY OFFICE/OUTPATIENT [facility] HIGH MDM 60-74 MINUTES Harriett Hayes PA-C [address] [place] [address] Referral ID Status Reason Start Date Expiration Date Visits Requested Visits Authorized [id number] Authorized PCP Requested Referral 12/25/2022 12/25/2023 1 1 Specialty Diagnoses / Procedures Referred By Contac t Referred [facility] Contact [facility] Diagnoses Stage 2 moderate COPD by GOLD classification ([facility]) Abnormal CT scan, lung Procedures LUNG VOLUMES Harriett Hayes PA-C [address] [place] [address] [address] Referral ID Status Reason Start Date Expiration Date Visits Requested Visits Authorized [id number] Authorized Auto-Generat ed Referral 12/25/2022 01/24/2024 1 1 Specialty Diagnoses / Procedures Referred By Contac t Referred To Contact [facility] Diagnoses Stage 2 moderate COPD by GOLD classification ([facility]) Abnormal CT scan, lung Procedures LUNG DIFFUSION CAPACITY ([facility]) DIFFUSING CAPACITY Harriett Hayes PA-C [address] [place] [address] [address] Referral ID Status Reason Start Date Expiration Date Visits Requested Visits Authorized [id number] Authorized Auto-Generat ed Referral 12/25/2022 01/24/2024 1 1 Specialty Diagnoses / Procedures Referred By Contac t Referred To [facility] Diagnoses Stage 2 moderate COPD by GOLD classification ([facility]) Abnormal CT scan, lung Procedures SPIROMETRY BASELINE ONLY SPMTRY W/VC EXPIRATORY LUPILLO W/WO MXML VOL VNTJ Harriett Hayes PA-C [address] [place] [address] [address] Referral ID Status Reason Start Date Expiration Date Visits Requested Visits Authorized [id number] Authorized Auto-Generat ed Referral 12/25/2022 01/24/2024 1 1 Specialty Diagnoses / Procedures Referred By Contac t Referred To [facility] Diagnoses Chest pain, unspecified type Dyspnea and respiratory abnormalities Procedures ECHO ECHO TTHRC R-T 2D W/WOM-MODE COMPL SPEC&COLR D Harriett Hayes PA-C [address] [place] [address] [facility] [address] [address] Referral ID Status Reason Start Date Expiration Date Visits Requested Visits Authorized [id number] Authorized Auto-Generat ed Referral 12/25/2022 12/25/2023 1 1 Specialty Diagnoses / Procedures Referred By Contac t Referred To Contact Diagnoses Bilateral leg pain Multiple sclerosis (HCC) Noman Dean, DO [address] [place] [address] Referral ID Status Reason Start Date Expiration Date Visits Re quested Visits Authorized [id number] Closed 1 1 Specialty Diagnoses / Procedures Referred By Contac t Referred To Contact Diagnoses Bilateral leg pain Multiple sclerosis (HCC) Edgar Longoria, DIE CUTTING MACHINE OPERATOR.SANDWICH COUNTER ATTENDANT [address] [place] [address] Referral ID Status Reason Start Date Expiration Date Visits Re quested Visits Authorized [id number] Closed 1 1 Specialty Diagnoses / Procedures Referred By Contac t Referred To Contact Diagnoses Bilateral leg pain Multiple sclerosis (HCC) Maria Dolores Randall, DIE CUTTING MACHINE OPERATOR.SANDWICH COUNTER ATTENDANT [address] [place] [address] Referral ID Status Reason Start Date Expiration Date Visits Re quested Visits Authorized [id number] Closed 1 1 Referral ID Status Reason Start Date Expiration Date Visits Re quested Visits Authorized [id number] Closed 1 1 Specialty Diagnoses / Procedures Referred By Contac t Referred To Contact CT IMAGING Diagnoses Wheezing Tobacco use Procedures CT CHEST WO IVCON DIAGNOSTIC COMPUTED TOMOGRAPHY THORAX W/O CNTRST Noman Dean, DO [address] [place] [address] [facility] [place] [address] Referral ID Status Reason Start Date Expiration Date V isits Requested Visits Authorized [id number] Closed Auto-Generate d Referral 11/12/2022 12/12/2023 1 1 Specialty Diagnoses / Procedures Referred By Contac t Referred To Contact MR IMAGING Diagnoses Multiple sclerosis (HCC) Procedures MRI BRAIN WO/W IVCON MRI BRAIN BRAIN STEM W/O W/CONTRAST MATERIAL Mckenna Garcia PA-C [address] [place] [address] Mr Imaging [id number] Referral ID Status Reason Start Date Expiration Date V isits Requested Visits Authorized [id number] Closed Auto-Generate d Referral 04/15/2022 05/15/2023 1 1 Additional Source Comments (unrecognized sect ion and content) No Status Records FoundNo Status Records FoundNo Status Records FoundNo Status Records Found INFORMATION SOURCE (unrecogn ized section and content) DATE CREATED AUTHOR AUTHOR'S ORGANIZ ATION 02/07/2021 [facility] DATE CREATED AUTHOR AUTHOR'S ORGANIZ ATION 10/31/2022 [facility] DATE CREATED AUTHOR AUTHOR'S ORGANIZ ATION 01/06/2024 [facility] Source Comments (unrecognize d section and content) In the event this informatio n is protected by the Federal Confidentiality of Alcohol and Drug Abuse Patient Records regulations: The Federal rules restrict any use of the information to criminally investigate or prosecute any alcohol or drug abuse patient.[facility] the event this information is protected by the Federal Confidentiality of Alcohol and Drug Abuse Patient Records regulations: The Federal rules restrict any use of the information to criminally investigate or prosecute any alcohol or drug abuse patient.[facility] CenterIn the event this information is protected by the Federal Confidentiality of Alcohol and Drug Abuse Patient Records regulations: The Federal rules restrict any use of the information to criminally investigate or prosecute any alcohol or drug abuse patient.[facility] CenterIn the event this information is protected by the Federal Confidentiality of Alcohol and Drug Abuse Patient Records regulations: The Federal rules restrict any use of the information to criminally investigate or prosecute any alcohol or drug abuse patient.[facility] CenterIn the event this information is protected by the Federal Confidentiality of Alcohol and Drug Abuse Patient Records regulations: The Federal rules restrict any use of the information to criminally investigate or prosecute any alcohol or drug abuse patient.[facility] CenterIn the event this information is protected by the Federal Confidentiality of Alcohol and Drug Abuse Patient Records regulations: The Federal rules restrict any use of the information to criminally investigate or prosecute any alcohol or drug abuse patient.[facility] CenterIn the event this information is protected by the Federal Confidentiality of Alcohol and Drug Abuse Patient Records regulations: The Federal rules restrict any use of the information to criminally investigate or prosecute any alcohol or drug abuse patient.[facility] CenterIn the event this information is protected by the Federal Confidentiality of Alcohol and Drug Abuse Patient Records regulations: The Federal rules restrict any use of the information to criminally investigate or prosecute any alcohol or drug abuse patient.[facility] CenterIn the event this information is protected by the Federal Confidentiality of Alcohol and Drug Abuse Patient Records regulations: The Federal rules restrict any use of the information to criminally investigate or prosecute any alcohol or drug abuse patient.[facility] CenterIn the event this information is protected by the Federal Confidentiality of Alcohol and Drug Abuse Patient Records regulations: The Federal rules restrict any use of the information to criminally investigate or prosecute any alcohol or drug abuse patient.[facility] CenterIn the event this information is protected by the Federal Confidentiality of Alcohol and Drug Abuse Patient Records regulations: The Federal rules restrict any use of the information to criminally investigate or prosecute any alcohol or drug abuse patient.[facility] CenterIn the event this information is protected by the Federal Confidentiality of Alcohol and Drug Abuse Patient Records regulations: The Federal rules restrict any use of the information to criminally investigate or prosecute any alcohol or drug abuse patient.[facility] CenterIn the event this information is protected by the Federal Confidentiality of Alcohol and Drug Abuse Patient Records regulations: The Federal rules restrict any use of the information to criminally investigate or prosecute any alcohol or drug abuse patient.[facility] CenterIn the event this information is protected by the Federal Confidentiality of Alcohol and Drug Abuse Patient Records regulations: The Federal rules restrict any use of the information to criminally investigate or prosecute any alcohol or drug abuse patient.[facility] CenterIn the event this information is protected by the Federal Confidentiality of Alcohol and Drug Abuse Patient Records regulations: The Federal rules restrict any use of the information to criminally investigate or prosecute any alcohol or drug abuse patient.[facility] CenterIn the event this information is protected by the Federal Confidentiality of Alcohol and Drug Abuse Patient Records regulations: The Federal rules restrict any use of the information to criminally investigate or prosecute any alcohol or drug abuse patient.[facility] CenterIn the event this information is protected by the Federal Confidentiality of Alcohol and Drug Abuse Patient Records regulations: The Federal rules restrict any use of the information to criminally investigate or prosecute any alcohol or drug abuse patient.[facility] CenterIn the event this information is protected by the Federal Confidentiality of Alcohol and Drug Abuse Patient Records regulations: The Federal rules restrict any use of the information to criminally investigate or prosecute any alcohol or drug abuse patient.[facility] CenterIn the event this information is protected by the Federal Confidentiality of Alcohol and Drug Abuse Patient Records regulations: The Federal rules restrict any use of the information to criminally investigate or prosecute any alcohol or drug abuse patient.[facility] CenterIn the event this information is protected by the Federal Confidentiality of Alcohol and Drug Abuse Patient Records regulations: The Federal rules restrict any use of the information to criminally investigate or prosecute any alcohol or drug abuse patient.[facility] CenterIn the event this information is protected by the Federal Confidentiality of Alcohol and Drug Abuse Patient Records regulations: The Federal rules restrict any use of the information to criminally investigate or prosecute any alcohol or drug abuse patient.[facility] CenterIn the event this information is protected by the Federal Confidentiality of Alcohol and Drug Abuse Patient Records regulations: The Federal rules restrict any use of the information to criminally investigate or prosecute any alcohol or drug abuse patient.[facility] CenterIn the event this information is protected by the Federal Confidentiality of Alcohol and Drug Abuse Patient Records regulations: The Federal rules restrict any use of the information to criminally investigate or prosecute any alcohol or drug abuse patient.[facility] CenterIn the event this information is protected by the Federal Confidentiality of Alcohol and Drug Abuse Patient Records regulations: The Federal rules restrict any use of the information to criminally investigate or prosecute any alcohol or drug abuse patient.[facility] CenterIn the event this information is protected by the Federal Confidentiality of Alcohol and Drug Abuse Patient Records regulations: The Federal rules restrict any use of the information to criminally investigate or prosecute any alcohol or drug abuse patient.[facility] CenterIn the event this information is protected by the Federal Confidentiality of Alcohol and Drug Abuse Patient Records regulations: The Federal rules restrict any use of the information to criminally investigate or prosecute any alcohol or drug abuse patient.[facility] CenterIn the event this information is protected by the Federal Confidentiality of Alcohol and Drug Abuse Patient Records regulations: The Federal rules restrict any use of the information to criminally investigate or prosecute any alcohol or drug abuse patient.[facility] CenterIn the event this information is protected by the Federal Confidentiality of Alcohol and Drug Abuse Patient Records regulations: The Federal rules restrict any use of the information to criminally investigate or prosecute any alcohol or drug abuse patient.[facility] CenterIn the event this information is protected by the Federal Confidentiality of Alcohol and Drug Abuse Patient Records regulations: The Federal rules restrict any use of the information to criminally investigate or prosecute any alcohol or drug abuse patient.[facility] CenterIn the event this information is protected by the Federal Confidentiality of Alcohol and Drug Abuse Patient Records regulations: The Federal rules restrict any use of the information to criminally investigate or prosecute any alcohol or drug abuse patient.[facility] CenterIn the event this information is protected by the Federal Confidentiality of Alcohol and Drug Abuse Patient Records regulations: The Federal rules restrict any use of the information to criminally investigate or prosecute any alcohol or drug abuse patient.[facility] CenterIn the event this information is protected by the Federal Confidentiality of Alcohol and Drug Abuse Patient Records regulations: The Federal rules restrict any use of the information to criminally investigate or prosecute any alcohol or drug abuse patient.[facility] CenterIn the event this information is protected by the Federal Confidentiality of Alcohol and Drug Abuse Patient Records regulations: The Federal rules restrict any use of the information to criminally investigate or prosecute any alcohol or drug abuse patient.[facility] CenterIn the event this information is protected by the Federal Confidentiality of Alcohol and Drug Abuse Patient Records regulations: The Federal rules restrict any use of the information to criminally investigate or prosecute any alcohol or drug abuse patient.[facility] CenterIn the event this information is protected by the Federal Confidentiality of Alcohol and Drug Abuse Patient Records regulations: The Federal rules restrict any use of the information to criminally investigate or prosecute any alcohol or drug abuse patient.[facility] CenterIn the event this information is protected by the Federal Confidentiality of Alcohol and Drug Abuse Patient Records regulations: The Federal rules restrict any use of the information to criminally investigate or prosecute any alcohol or drug abuse patient.[facility] CenterIn the event this information is protected by the Federal Confidentiality of Alcohol and Drug Abuse Patient Records regulations: The Federal rules restrict any use of the information to criminally investigate or prosecute any alcohol or drug abuse patient.[facility] CenterIn the event this information is protected by the Federal Confidentiality of Alcohol and Drug Abuse Patient Records regulations: The Federal rules restrict any use of the information to criminally investigate or prosecute any alcohol or drug abuse patient.[facility] CenterIn the event this information is protected by the Federal Confidentiality of Alcohol and Drug Abuse Patient Records regulations: The Federal rules restrict any use of the information to criminally investigate or prosecute any alcohol or drug abuse patient.[facility] CenterIn the event this information is protected by the Federal Confidentiality of Alcohol and Drug Abuse Patient Records regulations: The Federal rules restrict any use of the information to criminally investigate or prosecute any alcohol or drug abuse patient.[facility] CenterIn the event this information is protected by the Federal Confidentiality of Alcohol and Drug Abuse Patient Records regulations: The Federal rules restrict any use of the information to criminally investigate or prosecute any alcohol or drug abuse patient.[facility] CenterIn the event this information is protected by the Federal Confidentiality of Alcohol and Drug Abuse Patient Records regulations: The Federal rules restrict any use of the information to criminally investigate or prosecute any alcohol or drug abuse patient.[facility] CenterIn the event this information is protected by the Federal Confidentiality of Alcohol and Drug Abuse Patient Records regulations: The Federal rules restrict any use of the information to criminally investigate or prosecute any alcohol or drug abuse patient.[facility] CenterIn the event this information is protected by the Federal Confidentiality of Alcohol and Drug Abuse Patient Records regulations: The Federal rules restrict any use of the information to criminally investigate or prosecute any alcohol or drug abuse patient.[facility] CenterIn the event this information is protected by the Federal Confidentiality of Alcohol and Drug Abuse Patient Records regulations: The Federal rules restrict any use of the information to criminally investigate or prosecute any alcohol or drug abuse patient.[facility] CenterIn the event this information is protected by the Federal Confidentiality of Alcohol and Drug Abuse Patient Records regulations: The Federal rules restrict any use of the information to criminally investigate or prosecute any alcohol or drug abuse patient.[facility] CenterIn the event this information is protected by the Federal Confidentiality of Alcohol and Drug Abuse Patient Records regulations: The Federal rules restrict any use of the information to criminally investigate or prosecute any alcohol or drug abuse patient.[facility] CenterIn the event this information is protected by the Federal Confidentiality of Alcohol and Drug Abuse Patient Records regulations: The Federal rules restrict any use of the information to criminally investigate or prosecute any alcohol or drug abuse patient.[facility] CenterIn the event this information is protected by the Federal Confidentiality of Alcohol and Drug Abuse Patient Records regulations: The Federal rules restrict any use of the information to criminally investigate or prosecute any alcohol or drug abuse patient.[facility] CenterIn the event this information is protected by the Federal Confidentiality of Alcohol and Drug Abuse Patient Records regulations: The Federal rules restrict any use of the information to criminally investigate or prosecute any alcohol or drug abuse patient.[facility] CenterIn the event this information is protected by the Federal Confidentiality of Alcohol and Drug Abuse Patient Records regulations: The Federal rules restrict any use of the information to criminally investigate or prosecute any alcohol or drug abuse patient.[facility] CenterIn the event this information is protected by the Federal Confidentiality of Alcohol and Drug Abuse Patient Records regulations: The Federal rules restrict any use of the information to criminally investigate or prosecute any alcohol or drug abuse patient.[facility] CenterIn the event this information is protected by the Federal Confidentiality of Alcohol and Drug Abuse Patient Records regulations: The Federal rules restrict any use of the information to criminally investigate or prosecute any alcohol or drug abuse patient.[facility] CenterIn the event this information is protected by the Federal Confidentiality of Alcohol and Drug Abuse Patient Records regulations: The Federal rules restrict any use of the information to criminally investigate or prosecute any alcohol or drug abuse patient.[facility] CenterIn the event this information is protected by the Federal Confidentiality of Alcohol and Drug Abuse Patient Records regulations: The Federal rules restrict any use of the information to criminally investigate or prosecute any alcohol or drug abuse patient.[facility] CenterIn the event this information is protected by the Federal Confidentiality of Alcohol and Drug Abuse Patient Records regulations: The Federal rules restrict any use of the information to criminally investigate or prosecute any alcohol or drug abuse patient.[facility] CenterIn the event this information is protected by the Federal Confidentiality of Alcohol and Drug Abuse Patient Records regulations: The Federal rules restrict any use of the information to criminally investigate or prosecute any alcohol or drug abuse patient.[facility] CenterIn the event this information is protected by the Federal Confidentiality of Alcohol and Drug Abuse Patient Records regulations: The Federal rules restrict any use of the information to criminally investigate or prosecute any alcohol or drug abuse patient.[facility] CenterIn the event this information is protected by the Federal Confidentiality of Alcohol and Drug Abuse Patient Records regulations: The Federal rules restrict any use of the information to criminally investigate or prosecute any alcohol or drug abuse patient.[facility] CenterIn the event this information is protected by the Federal Confidentiality of Alcohol and Drug Abuse Patient Records regulations: The Federal rules restrict any use of the information to criminally investigate or prosecute any alcohol or drug abuse patient.[facility] CenterIn the event this information is protected by the Federal Confidentiality of Alcohol and Drug Abuse Patient Records regulations: The Federal rules restrict any use of the information to criminally investigate or prosecute any alcohol or drug abuse patient.[facility] CenterIn the event this information is protected by the Federal Confidentiality of Alcohol and Drug Abuse Patient Records regulations: The Federal rules restrict any use of the information to criminally investigate or prosecute any alcohol or drug abuse patient.[facility] CenterIn the event this information is protected by the Federal Confidentiality of Alcohol and Drug Abuse Patient Records regulations: The Federal rules restrict any use of the information to criminally investigate or prosecute any alcohol or drug abuse patient.[facility] CenterIn the event this information is protected by the Federal Confidentiality of Alcohol and Drug Abuse Patient Records regulations: The Federal rules restrict any use of the information to criminally investigate or prosecute any alcohol or drug abuse patient.[facility] CenterIn the event this information is protected by the Federal Confidentiality of Alcohol and Drug Abuse Patient Records regulations: The Federal rules restrict any use of the information to criminally investigate or prosecute any alcohol or drug abuse patient.[facility] CenterIn the event this information is protected by the Federal Confidentiality of Alcohol and Drug Abuse Patient Records regulations: The Federal rules restrict any use of the information to criminally investigate or prosecute any alcohol or drug abuse patient.[facility] CenterIn the event this information is protected by the Federal Confidentiality of Alcohol and Drug Abuse Patient Records regulations: The Federal rules restrict any use of the information to criminally investigate or prosecute any alcohol or drug abuse patient.[facility] CenterIn the event this information is protected by the Federal Confidentiality of Alcohol and Drug Abuse Patient Records regulations: The Federal rules restrict any use of the information to criminally investigate or prosecute any alcohol or drug abuse patient.[facility] CenterIn the event this information is protected by the Federal Confidentiality of Alcohol and Drug Abuse Patient Records regulations: The Federal rules restrict any use of the information to criminally investigate or prosecute any alcohol or drug abuse patient.[facility] CenterIn the event this information is protected by the Federal Confidentiality of Alcohol and Drug Abuse Patient Records regulations: The Federal rules restrict any use of the information to criminally investigate or prosecute any alcohol or drug abuse patient.[facility] CenterIn the event this information is protected by the Federal Confidentiality of Alcohol and Drug Abuse Patient Records regulations: The Federal rules restrict any use of the information to criminally investigate or prosecute any alcohol or drug abuse patient.[facility] CenterIn the event this information is protected by the Federal Confidentiality of Alcohol and Drug Abuse Patient Records regulations: The Federal rules restrict any use of the information to criminally investigate or prosecute any alcohol or drug abuse patient.[facility] CenterIn the event this information is protected by the Federal Confidentiality of Alcohol and Drug Abuse Patient Records regulations: The Federal rules restrict any use of the information to criminally investigate or prosecute any alcohol or drug abuse patient.[facility] CenterIn the event this information is protected by the Federal Confidentiality of Alcohol and Drug Abuse Patient Records regulations: The Federal rules restrict any use of the information to criminally investigate or prosecute any alcohol or drug abuse patient.[facility] CenterIn the event this information is protected by the Federal Confidentiality of Alcohol and Drug Abuse Patient Records regulations: The Federal rules restrict any use of the information to criminally investigate or prosecute any alcohol or drug abuse patient.[facility] CenterIn the event this information is protected by the Federal Confidentiality of Alcohol and Drug Abuse Patient Records regulations: The Federal rules restrict any use of the information to criminally investigate or prosecute any alcohol or drug abuse patient.[facility] CenterIn the event this information is protected by the Federal Confidentiality of Alcohol and Drug Abuse Patient Records regulations: The Federal rules restrict any use of the information to criminally investigate or prosecute any alcohol or drug abuse patient.[facility] CenterIn the event this information is protected by the Federal Confidentiality of Alcohol and Drug Abuse Patient Records regulations: The Federal rules restrict any use of the information to criminally investigate or prosecute any alcohol or drug abuse patient.[facility] CenterIn the event this information is protected by the Federal Confidentiality of Alcohol and Drug Abuse Patient Records regulations: The Federal rules restrict any use of the information to criminally investigate or prosecute any alcohol or drug abuse patient.[facility] CenterIn the event this information is protected by the Federal Confidentiality of Alcohol and Drug Abuse Patient Records regulations: The Federal rules restrict any use of the information to criminally investigate or prosecute any alcohol or drug abuse patient.[facility] CenterIn the event this information is protected by the Federal Confidentiality of Alcohol and Drug Abuse Patient Records regulations: The Federal rules restrict any use of the information to criminally investigate or prosecute any alcohol or drug abuse patient.[facility] CenterIn the event this information is protected by the Federal Confidentiality of Alcohol and Drug Abuse Patient Records regulations: The Federal rules restrict any use of the information to criminally investigate or prosecute any alcohol or drug abuse patient.[facility] CenterIn the event this information is protected by the Federal Confidentiality of Alcohol and Drug Abuse Patient Records regulations: The Federal rules restrict any use of the information to criminally investigate or prosecute any alcohol or drug abuse patient.[facility] CenterIn the event this information is protected by the Federal Confidentiality of Alcohol and Drug Abuse Patient Records regulations: The Federal rules restrict any use of the information to criminally investigate or prosecute any alcohol or drug abuse patient.[facility] CenterIn the event this information is protected by the Federal Confidentiality of Alcohol and Drug Abuse Patient Records regulations: The Federal rules restrict any use of the information to criminally investigate or prosecute any alcohol or drug abuse patient.[facility] CenterIn the event this information is protected by the Federal Confidentiality of Alcohol and Drug Abuse Patient Records regulations: The Federal rules restrict any use of the information to criminally investigate or prosecute any alcohol or drug abuse patient.[facility] CenterIn the event this information is protected by the Federal Confidentiality of Alcohol and Drug Abuse Patient Records regulations: The Federal rules restrict any use of the information to criminally investigate or prosecute any alcohol or drug abuse patient.[facility] CenterIn the event this information is protected by the Federal Confidentiality of Alcohol and Drug Abuse Patient Records regulations: The Federal rules restrict any use of the information to criminally investigate or prosecute any alcohol or drug abuse patient.[facility] CenterIn the event this information is protected by the Federal Confidentiality of Alcohol and Drug Abuse Patient Records regulations: The Federal rules restrict any use of the information to criminally investigate or prosecute any alcohol or drug abuse patient.[facility] CenterIn the event this information is protected by the Federal Confidentiality of Alcohol and Drug Abuse Patient Records regulations: The Federal rules restrict any use of the information to criminally investigate or prosecute any alcohol or drug abuse patient.[facility] CenterIn the event this information is protected by the Federal Confidentiality of Alcohol and Drug Abuse Patient Records regulations: The Federal rules restrict any use of the information to criminally investigate or prosecute any alcohol or drug abuse patient.[facility] CenterIn the event this information is protected by the Federal Confidentiality of Alcohol and Drug Abuse Patient Records regulations: The Federal rules restrict any use of the information to criminally investigate or prosecute any alcohol or drug abuse patient.[facility] CenterIn the event this information is protected by the Federal Confidentiality of Alcohol and Drug Abuse Patient Records regulations: The Federal rules restrict any use of the information to criminally investigate or prosecute any alcohol or drug abuse patient.[facility] CenterIn the event this information is protected by the Federal Confidentiality of Alcohol and Drug Abuse Patient Records regulations: The Federal rules restrict any use of the information to criminally investigate or prosecute any alcohol or drug abuse patient.[facility] CenterIn the event this information is protected by the Federal Confidentiality of Alcohol and Drug Abuse Patient Records regulations: The Federal rules restrict any use of the information to criminally investigate or prosecute any alcohol or drug abuse patient.[facility] CenterIn the event this information is protected by the Federal Confidentiality of Alcohol and Drug Abuse Patient Records regulations: The Federal rules restrict any use of the information to criminally investigate or prosecute any alcohol or drug abuse patient.[facility] CenterIn the event this information is protected by the Federal Confidentiality of Alcohol and Drug Abuse Patient Records regulations: The Federal rules restrict any use of the information to criminally investigate or prosecute any alcohol or drug abuse patient.[facility] CenterIn the event this information is protected by the Federal Confidentiality of Alcohol and Drug Abuse Patient Records regulations: The Federal rules restrict any use of the information to criminally investigate or prosecute any alcohol or drug abuse patient.[facility] CenterIn the event this information is protected by the Federal Confidentiality of Alcohol and Drug Abuse Patient Records regulations: The Federal rules restrict any use of the information to criminally investigate or prosecute any alcohol or drug abuse patient.[facility] CenterIn the event this information is protected by the Federal Confidentiality of Alcohol and Drug Abuse Patient Records regulations: The Federal rules restrict any use of the information to criminally investigate or prosecute any alcohol or drug abuse patient.[facility] CenterIn the event this information is protected by the Federal Confidentiality of Alcohol and Drug Abuse Patient Records regulations: The Federal rules restrict any use of the information to criminally investigate or prosecute any alcohol or drug abuse patient.[facility] CenterIn the event this information is protected by the Federal Confidentiality of Alcohol and Drug Abuse Patient Records regulations: The Federal rules restrict any use of the information to criminally investigate or prosecute any alcohol or drug abuse patient.[facility] CenterIn the event this information is protected by the Federal Confidentiality of Alcohol and Drug Abuse Patient Records regulations: The Federal rules restrict any use of the information to criminally investigate or prosecute any alcohol or drug abuse patient.[facility] CenterIn the event this information is protected by the Federal Confidentiality of Alcohol and Drug Abuse Patient Records regulations: The Federal rules restrict any use of the information to criminally investigate or prosecute any alcohol or drug abuse patient.[facility] CenterIn the event this information is protected by the Federal Confidentiality of Alcohol and Drug Abuse Patient Records regulations: The Federal rules restrict any use of the information to criminally investigate or prosecute any alcohol or drug abuse patient.[facility] CenterIn the event this information is protected by the Federal Confidentiality of Alcohol and Drug Abuse Patient Records regulations: The Federal rules restrict any use of the information to criminally investigate or prosecute any alcohol or drug abuse patient.[facility] CenterIn the event this information is protected by the Federal Confidentiality of Alcohol and Drug Abuse Patient Records regulations: The Federal rules restrict any use of the information to criminally investigate or prosecute any alcohol or drug abuse patient.[facility] CenterIn the event this information is protected by the Federal Confidentiality of Alcohol and Drug Abuse Patient Records regulations: The Federal rules restrict any use of the information to criminally investigate or prosecute any alcohol or drug abuse patient.[facility] CenterIn the event this information is protected by the Federal Confidentiality of Alcohol and Drug Abuse Patient Records regulations: The Federal rules restrict any use of the information to criminally investigate or prosecute any alcohol or drug abuse patient.[facility] CenterIn the event this information is protected by the Federal Confidentiality of Alcohol and Drug Abuse Patient Records regulations: The Federal rules restrict any use of the information to criminally investigate or prosecute any alcohol or drug abuse patient.[facility] CenterIn the event this information is protected by the Federal Confidentiality of Alcohol and Drug Abuse Patient Records regulations: The Federal rules restrict any use of the information to criminally investigate or prosecute any alcohol or drug abuse patient.[facility] CenterIn the event this information is protected by the Federal Confidentiality of Alcohol and Drug Abuse Patient Records regulations: The Federal rules restrict any use of the information to criminally investigate or prosecute any alcohol or drug abuse patient.[facility] CenterIn the event this information is protected by the Federal Confidentiality of Alcohol and Drug Abuse Patient Records regulations: The Federal rules restrict any use of the information to criminally investigate or prosecute any alcohol or drug abuse patient.[facility] CenterIn the event this information is protected by the Federal Confidentiality of Alcohol and Drug Abuse Patient Records regulations: The Federal rules restrict any use of the information to criminally investigate or prosecute any alcohol or drug abuse patient.[facility] CenterIn the event this information is protected by the Federal Confidentiality of Alcohol and Drug Abuse Patient Records regulations: The Federal rules restrict any use of the information to criminally investigate or prosecute any alcohol or drug abuse patient.[facility] CenterIn the event this information is protected by the Federal Confidentiality of Alcohol and Drug Abuse Patient Records regulations: The Federal rules restrict any use of the information to criminally investigate or prosecute any alcohol or drug abuse patient.[facility] CenterIn the event this information is protected by the Federal Confidentiality of Alcohol and Drug Abuse Patient Records regulations: The Federal rules restrict any use of the information to criminally investigate or prosecute any alcohol or drug abuse patient.[facility] CenterIn the event this information is protected by the Federal Confidentiality of Alcohol and Drug Abuse Patient Records regulations: The Federal rules restrict any use of the information to criminally investigate or prosecute any alcohol or drug abuse patient.[facility] CenterIn the event this information is protected by the Federal Confidentiality of Alcohol and Drug Abuse Patient Records regulations: The Federal rules restrict any use of the information to criminally investigate or prosecute any alcohol or drug abuse patient.[facility] CenterIn the event this information is protected by the Federal Confidentiality of Alcohol and Drug Abuse Patient Records regulations: The Federal rules restrict any use of the information to criminally investigate or prosecute any alcohol or drug abuse patient.[facility] CenterIn the event this information is protected by the Federal Confidentiality of Alcohol and Drug Abuse Patient Records regulations: The Federal rules restrict any use of the information to criminally investigate or prosecute any alcohol or drug abuse patient.[facility] CenterIn the event this information is protected by the Federal Confidentiality of Alcohol and Drug Abuse Patient Records regulations: The Federal rules restrict any use of the information to criminally investigate or prosecute any alcohol or drug abuse patient.[facility] CenterIn the event this information is protected by the Federal Confidentiality of Alcohol and Drug Abuse Patient Records regulations: The Federal rules restrict any use of the information to criminally investigate or prosecute any alcohol or drug abuse patient.[facility] CenterIn the event this information is protected by the Federal Confidentiality of Alcohol and Drug Abuse Patient Records regulations: The Federal rules restrict any use of the information to criminally investigate or prosecute any alcohol or drug abuse patient.[facility] CenterIn the event this information is protected by the Federal Confidentiality of Alcohol and Drug Abuse Patient Records regulations: The Federal rules restrict any use of the information to criminally investigate or prosecute any alcohol or drug abuse patient.[facility] CenterIn the event this information is protected by the Federal Confidentiality of Alcohol and Drug Abuse Patient Records regulations: The Federal rules restrict any use of the information to criminally investigate or prosecute any alcohol or drug abuse patient.[facility] CenterIn the event this information is protected by the Federal Confidentiality of Alcohol and Drug Abuse Patient Records regulations: The Federal rules restrict any use of the information to criminally investigate or prosecute any alcohol or drug abuse patient.[facility] CenterIn the event this information is protected by the Federal Confidentiality of Alcohol and Drug Abuse Patient Records regulations: The Federal rules restrict any use of the information to criminally investigate or prosecute any alcohol or drug abuse patient.[facility] CenterIn the event this information is protected by the Federal Confidentiality of Alcohol and Drug Abuse Patient Records regulations: The Federal rules restrict any use of the information to criminally investigate or prosecute any alcohol or drug abuse patient.[facility] CenterIn the event this information is protected by the Federal Confidentiality of Alcohol and Drug Abuse Patient Records regulations: The Federal rules restrict any use of the information to criminally investigate or prosecute any alcohol or drug abuse patient.[facility] CenterIn the event this information is protected by the Federal Confidentiality of Alcohol and Drug Abuse Patient Records regulations: The Federal rules restrict any use of the information to criminally investigate or prosecute any alcohol or drug abuse patient.[facility]In the event this information is protected by the Federal Confidentiality of Alcohol and Drug Abuse Patient Records regulations: The Federal rules restrict any use of the information to criminally investigate or prosecute any alcohol or drug abuse patient.[facility] CenterIn the event this information is protected by the Federal Confidentiality of Alcohol and Drug Abuse Patient Records regulations: The Federal rules restrict any use of the information to criminally investigate or prosecute any alcohol or drug abuse patient.[facility] CenterIn the event this information is protected by the Federal Confidentiality of Alcohol and Drug Abuse Patient Records regulations: The Federal rules restrict any use of the information to criminally investigate or prosecute any alcohol or drug abuse patient.[facility] CenterIn the event this information is protected by the Federal Confidentiality of Alcohol and Drug Abuse Patient Records regulations: The Federal rules restrict any use of the information to criminally investigate or prosecute any alcohol or drug abuse patient.[facility] Care Teams (unrecognized sec tion and content) Laundry Housekeeping Aide Relationship Specialty Start Date End Date Noman Dean, DO [address] [place] [address] PCP - General 12/19/14 Laundry Housekeeping Aide Relationship Specialty Start Date End Date Noman Dean DO [address] [place] [address] PCP - General 12/19/14 Laundry Housekeeping Aide Relationship Specialty Start Date End Date Noman Dean DO [address] [place] [address] PCP - General 12/19/14 Laundry Housekeeping Aide Relationship Specialty Start Date End Date Noman Dean, DO [address] [place] [address] PCP - General 12/19/14 Laundry Housekeeping Aide Relationship Specialty Start Date End Date Noman Dean, DO [address] [place] [address] PCP - General 12/19/14 Laundry Housekeeping Aide Relationship Specialty Start Date End Date Noman Dean, DO [address] [place] [address] PCP - General 12/19/14 Laundry Housekeeping Aide Relationship Specialty Start Date End Date Dean, Noman L, DO [address] [place] [address] PCP - General 12/19/14 Laundry Housekeeping Aide Relationship Specialty Start Date End Date Noman Dean, DO [address] [place] [address] PCP - General 12/19/14 Laundry Housekeeping Aide Relationship Specialty Start Date End Date Noman Dean, DO [address] [place] [address] PCP - General 12/19/14 Laundry Housekeeping Aide Relationship Specialty Start Date End Date Noman Dean, DO [address] [place] [address] PCP - General 12/19/14 Laundry Housekeeping Aide Relationship Specialty Start Date End Date Noman Dean, DO [address] [place] [address] PCP - General 12/19/14 Laundry Housekeeping Aide Relationship Specialty Start Date End Date Noman Dean, DO [address] [place] [address] PCP - General 12/19/14 Laundry Housekeeping Aide Relationship Specialty Start Date End Date Noman Dean, DO [address] [place] [address] PCP - General 12/19/14 Laundry Housekeeping Aide Relationship Specialty Start Date End Date Noman Dean, DO [address] [place] [address] PCP - General 12/19/14 Laundry Housekeeping Aide Relationship Specialty Start Date End Date Noman Dean, DO [address] [place] [address] PCP - General 12/19/14 Laundry Housekeeping Aide Relationship Specialty Start Date End Date Noman Dean, DO [address] [place] [address] PCP - General 12/19/14 Laundry Housekeeping Aide Relationship Specialty Start Date End Date Noman Dean, DO [address] [place] [address] PCP - General 12/19/14 Laundry Housekeeping Aide Relationship Specialty Start Date End Date Noman Dean, DO [address] [place] [address] PCP - General 12/19/14 Laundry Housekeeping Aide Relationship Specialty Start Date End Date Noman Dean, DO [address] [place] [address] PCP - General 12/19/14 Laundry Housekeeping Aide Relationship Specialty Start Date End Date Noman Dean, DO [address] [place] [address] PCP - General 12/19/14 Laundry Housekeeping Aide Relationship Specialty Start Date End Date Noman Dean, DO [address] [place] [address] PCP - General 12/19/14 Laundry Housekeeping Aide Relationship Specialty Start Date End Date Noman Dean, DO [address] [place] [address] PCP - General 12/19/14 Laundry Housekeeping Aide Relationship Specialty Start Date End Date Noman Dean, DO [address] [place] [address] PCP - General 12/19/14 Laundry Housekeeping Aide Relationship Specialty Start Date End Date Noman Dean, DO [address] [place] [address] PCP - General 12/19/14 Laundry Housekeeping Aide Relationship Specialty Start Date End Date Noman Dean, DO [address] [place] [address] PCP - General 12/19/14 Laundry Housekeeping Aide Relationship Specialty Start Date End Date Noman Dean, DO [address] [place] [address] PCP - General 12/19/14 Laundry Housekeeping Aide Relationship Specialty Start Date End Date Noman Dean, DO [address] [place] [address] PCP - General 12/19/14 Laundry Housekeeping Aide Relationship Specialty Start Date End Date Noman Dean, DO [address] [place] [address] PCP - General 12/19/14 Laundry Housekeeping Aide Relationship Specialty Start Date End Date Noman Dean, DO [address] [place] [address] PCP - General 12/19/14 Laundry Housekeeping Aide Relationship Specialty Start Date End Date Noman Dean, DO [address] [place] [address] PCP - General 12/19/14 Laundry Housekeeping Aide Relationship Specialty Start Date End Date Noman Dean, DO [address] [place] [address] PCP - General 12/19/14 Laundry Housekeeping Aide Relationship Specialty Start Date End Date Noman Dean, DO [address] [place] [address] PCP - General 12/19/14 Laundry Housekeeping Aide Relationship Specialty Start Date End Date Noman Dean, DO [address] [place] [address] PCP - General 12/19/14 Laundry Housekeeping Aide Relationship Specialty Start Date End Date Noman Dean, DO [address] [place] [address] PCP - General 12/19/14 Laundry Housekeeping Aide Relationship Specialty Start Date End Date Noman Dean, DO [address] [place] [address] PCP - General 12/19/14 Laundry Housekeeping Aide Relationship Specialty Start Date End Date Noman Dean, DO [address] [place] [address] PCP - General 12/19/14 Laundry Housekeeping Aide Relationship Specialty Start Date End Date Noman Dean, DO [address] [place] [address] PCP - General 12/19/14 Laundry Housekeeping Aide Relationship Specialty Start Date End Date Noman Dean, DO [address] [place] [address] PCP - General 12/19/14 Laundry Housekeeping Aide Relationship Specialty Start Date End Date Noman Dean, DO [address] [place] [address] PCP - General 12/19/14 Otoniel Heaton, DO [address] [place] [address] Hematology/Oncology 12/17/22 Harriett Hayes PA-C [address] [place] [address] Pulmonary and Critical Care Medicine 12/17/22 Laundry Housekeeping Aide Relationship Specialty Start Date End Date Noman Dean, DO [address] [place] [address] PCP - General 12/19/14 Otoniel Heaton, DO [address] [place] [address] Hematology/Oncology 12/17/22 Harriett Hayes PA-C [address] [place] [address] Pulmonary and Critical Care Medicine 12/17/22 Laundry Housekeeping Aide Relationship Specialty Start Date End Date Noman Dean, DO [address] [place] [address] PCP - General 12/19/14 Otoniel Heaton, DO [address] [place] [address] Hematology/Oncology 12/17/22 Harriett Hayes PA-C [address] [place] [address] Pulmonary and Critical Care Medicine 12/17/22 Laundry Housekeeping Aide Relationship Specialty Start Date End Date Noman Dean, DO [address] [place] [address] PCP - General 12/19/14 Otoniel Heaton, DO [address] [place] [address] Hematology/Oncology 12/17/22 Harriett Hayes PA-C [address] [place] [address] Pulmonary and Critical Care Medicine 12/17/22 Laundry Housekeeping Aide Relationship Specialty Start Date End Date Noman Dean, DO [address] [place] [address] PCP - General 12/19/14 Otoniel Heaton, DO [address] [place] [address] Hematology/Oncology 12/17/22 Harriett Hayes PALoraC [address] [place] [address] Pulmonary and Critical Care Medicine 12/17/22 Laundry Housekeeping Aide Relationship Specialty Start Date End Date Noman Dean, DO [address] [place] [address] PCP - General 12/19/14 Otoniel Heaton, DO [address] [place] [address] Hematology/Oncology 12/17/22 Harriett Hayes PA-C [address] [place] [address] Pulmonary and Critical Care Medicine 12/17/22 Laundry Housekeeping Aide Relationship Specialty Start Date End Date Noman Dean, DO [address] [place] [address] PCP - General 12/19/14 Otoniel Heaton, DO [address] [place] [address] Hematology/Oncology 12/17/22 Harriett Hayes PA-C [address] [place] [address] Pulmonary and Critical Care Medicine 12/17/22 Laundry Housekeeping Aide Relationship Specialty Start Date End Date Noman Dean, DO [address] [place] [address] PCP - General 12/19/14 Otoniel Heaton, DO [address] [place] [address] Hematology/Oncology 12/17/22 Harriett Hayes PA-C [address] [place] [address] Pulmonary and Critical Care Medicine 12/17/22 Laundry Housekeeping Aide Relationship Specialty Start Date End Date Noman Dean, DO [address] [place] [address] PCP - General 12/19/14 Otoniel Heaton, DO [address] [place] [address] Hematology/Oncology 12/17/22 Harriett Hayes PALoraC [address] [place] [address] Pulmonary and Critical Care Medicine 12/17/22 Laundry Housekeeping Aide Relationship Specialty Start Date End Date Noman Dean, DO [address] [place] [address] PCP - General 12/19/14 Otoniel Heaton, DO [address] [place] [address] Hematology/Oncology 12/17/22 Harriett Hayes PA-C [address] [place] [address] Pulmonary and Critical Care Medicine 12/17/22 Laundry Housekeeping Aide Relationship Specialty Start Date End Date Noman Dean, DO [address] [place] [address] PCP - General 12/19/14 Otoniel Heaton, DO [address] [place] [address] Hematology/Oncology 12/17/22 Harriett Hayes PALoraC [address] [place] [address] Pulmonary and Critical Care Medicine 12/17/22 Laundry Housekeeping Aide Relationship Specialty Start Date End Date Noman Dean, DO [address] [place] [address] PCP - General 12/19/14 Otoniel Heaton, DO [address] [place] [address] Hematology/Oncology 12/17/22 Harriett Hayes PA-C [address] [place] [address] Pulmonary and Critical Care Medicine 12/17/22 Laundry Housekeeping Aide Relationship Specialty Start Date End Date Noman Dean, DO [address] [place] [address] PCP - General 12/19/14 Otoniel Heaton, DO [address] [place] [address] Hematology/Oncology 12/17/22 Harriett Hayes PA-C [address] [place] [address] Pulmonary and Critical Care Medicine 12/17/22 Laundry Housekeeping Aide Relationship Specialty Start Date End Date Noman Dean, DO [address] [place] [address] PCP - General 12/19/14 Otoniel Heaton, DO [address] [place] [address] Hematology/Oncology 12/17/22 Harriett Hayes PALoraC [address] [place] [address] Pulmonary and Critical Care Medicine 12/17/22 Laundry Housekeeping Aide Relationship Specialty Start Date End Date Noman Dean, DO [address] [place] [address] PCP - General 12/19/14 Otoniel Heaton, DO [address] [place] [address] Hematology/Oncology 12/17/22 Harriett Hayes PA-C [address] [place] [address] Pulmonary and Critical Care Medicine 12/17/22 Laundry Housekeeping Aide Relationship Specialty Start Date End Date Noman Dean, DO [address] [place] [address] PCP - General 12/19/14 Otoneil Heaton, DO [address] [place] [address] Hematology/Oncology 12/17/22 Harriett Hayes, PA-C [address] [place] [address] Pulmonary and Critical Care Medicine 12/17/22 Laundry Housekeeping Aide Relationship Specialty Start Date End Date Noman Dean, DO [address] [place] [address] PCP - General 12/19/14 Otoniel Heaton, DO [address] [place] [address] Hematology/Oncology 12/17/22 Harriett Hayes, PA-C [address] [place] [address] Pulmonary and Critical Care Medicine 12/17/22 Ros Ayala RN Specialty Timekeeping Supervisor Oncology 05/30/23 Laundry Housekeeping Aide Relationship Specialty Start Date End Date Noman Dean, DO [address] [place] [address] PCP - General 12/19/14 Otoniel Heaton, DO [address] [place] [address] Hematology/Oncology 12/17/22 Harriett Hayes PA-C [address] [place] [address] Pulmonary and Critical Care Medicine 12/17/22 Ros Ayala RN Specialty Timekeeping Supervisor Oncology 05/30/23 Laundry Housekeeping Aide Relationship Specialty Start Date End Date Noman Dean, DO [address] [place] [address] PCP - General 12/19/14 Otoniel Heaton, DO [address] [place] [address] Hematology/Oncology 12/17/22 Harriett Hayes PA-C [address] [place] [address] Pulmonary and Critical Care Medicine 12/17/22 Ros Ayala RN Specialty Timekeeping Supervisor Oncology 05/30/23 Laundry Housekeeping Aide Relationship Specialty Start Date End Date Noman Dean, DO [address] [place] [address] PCP - General 12/19/14 Otoniel Heaton, DO [address] [place] [address] Hematology/Oncology 12/17/22 Harriett Hayes PA-C [address] [place] [address] Pulmonary and Critical Care Medicine 12/17/22 Ros Ayala RN Specialty Timekeeping Supervisor Oncology 05/30/23 Laundry Housekeeping Aide Relationship Specialty Start Date End Date Noman Dean DO [address] [place] [address] PCP - General 12/19/14 Otoniel Heaton DO [address] [place] [address] Hematology/Oncology 12/17/22 Harriett Hayes PA-C [address] [place] [address] Pulmonary and Critical Care Medicine 12/17/22 Ros Ayala RN Specialty Timekeeping Supervisor Oncology 05/30/23 Laundry Housekeeping Aide Relationship Specialty Start Date End Date Noman Dean DO [address] [place] [address] PCP - General 12/19/14 Otoniel Heaton DO [address] [place] [address] Hematology/Oncology 12/17/22 Harriett Hayes PA-C [address] [place] [address] Pulmonary and Critical Care Medicine 12/17/22 Ros Ayala RN Specialty Timekeeping Supervisor Oncology 05/30/23 Laundry Housekeeping Aide Relationship Specialty Start Date End Date Noman Dean DO [address] [place] [address] PCP - General 12/19/14 Otoniel Heaton DO [address] [place] [address] Hematology/Oncology 12/17/22 Harriett Hayes PA-C [address] [place] [address] Pulmonary and Critical Care Medicine 12/17/22 Ros Ayala RN Specialty Timekeeping Supervisor Oncology 05/30/23 Laundry Housekeeping Aide Relationship Specialty Start Date End Date Noman Dean DO [address] [place] [address] PCP - General 12/19/14 Otoniel Heaton DO [address] [place] [address] Hematology/Oncology 12/17/22 Harriett Hayes PA-C [address] [place] [address] Pulmonary and Critical Care Medicine 12/17/22 Ros Ayala RN Specialty Timekeeping Supervisor Oncology 05/30/23 Laundry Housekeeping Aide Relationship Specialty Start Date End Date Noman Dean DO [address] [place] [address] PCP - General 12/19/14 Otoniel Heaton DO [address] [place] [address] Hematology/Oncology 12/17/22 Harriett Hayes PA-C [address] [place] [address] Pulmonary and Critical Care Medicine 12/17/22 Ros Ayala RN Specialty Timekeeping Supervisor Oncology 05/30/23 Laundry Housekeeping Aide Relationship Specialty Start Date End Date Noman Dean DO [address] [place] [address] PCP - General 12/19/14 Otoniel Heaton DO [address] [place] [address] Hematology/Oncology 12/17/22 Harriett Hayes PA-C [address] [place] [address] Pulmonary and Critical Care Medicine 12/17/22 Ros Ayala RN Specialty Timekeeping Supervisor Oncology 05/30/23 Laundry Housekeeping Aide Relationship Specialty Start Date End Date Noman Dean DO [address] [place] [address] PCP - General 12/19/14 Otoniel Heaton DO [address] [place] [address] Hematology/Oncology 12/17/22 Harriett Hayes PA-C [address] [place] [address] Pulmonary and Critical Care Medicine 12/17/22 Ros Ayala RN Specialty Timekeeping Supervisor Oncology 05/30/23 Laundry Housekeeping Aide Relationship Specialty Start Date End Date Noman Dean DO [address] [place] [address] PCP - General 12/19/14 Otoniel Heaton DO [address] [place] [address] Hematology/Oncology 12/17/22 Harriett Hayes PA-C [address] [place] [address] Pulmonary and Critical Care Medicine 12/17/22 Ros Ayala RN Specialty Timekeeping Supervisor Oncology 05/30/23 Laundry Housekeeping Aide Relationship Specialty Start Date End Date Noman Dean DO [address] [place] [address] PCP - General 12/19/14 Otoniel Heaton DO [address] [place] [address] Hematology/Oncology 12/17/22 Harriett Hayes PA-C [address] [place] [address] Pulmonary and Critical Care Medicine 12/17/22 Ros Ayala RN Specialty Timekeeping Supervisor Oncology 05/30/23 Laundry Housekeeping Aide Relationship Specialty Start Date End Date Noman Dean DO [address] [place] [address] PCP - General 12/19/14 Otoniel Heaton DO [address] [place] [address] Hematology/Oncology 12/17/22 Harriett Hayes PA-C [address] [place] [address] Pulmonary and Critical Care Medicine 12/17/22 Ros Ayala RN Specialty Timekeeping Supervisor Oncology 05/30/23 Laundry Housekeeping Aide Relationship Specialty Start Date End Date Noman Dean DO [address] [place] [address] PCP - General 12/19/14 Laundry Housekeeping Aide Relationship Specialty Start Date End Date Noman Dean DO [address] [place] [address] PCP - General 12/19/14 Otoniel Heaton DO [address] [place] [address] Hematology/Oncology 12/17/22 Harriett Hayes PA-C [address] [address] Pulmonary and Critical Care Medicine 12/17/22 Laundry Housekeeping Aide Relationship Specialty Start Date End Date Noman Dean DO [address] [place] [address] PCP - General 12/19/14 Otoniel Heaton DO [address] [place] [address] Hematology/Oncology 12/17/22 Harriett Hayes PA-C [address] [place] [address] Pulmonary and Critical Care Medicine 12/17/22 Ros Ayala RN Specialty Timekeeping Supervisor Oncology 05/30/23 Laundry Housekeeping Aide Relationship Specialty Start Date End Date Noman Dean DO [address] [place] [address] PCP - General 12/19/14 Otoniel Heaton DO [address] [place] [address] Hematology/Oncology 12/17/22 Harriett Hayes PA-C [address] [place] [address] Pulmonary and Critical Care Medicine 12/17/22 Ros Ayala RN Specialty Timekeeping Supervisor Oncology 05/30/23 Laundry Housekeeping Aide Relationship Specialty Start Date End Date Noman Dean DO [address] [place] [address] PCP - General 12/19/14 Otoniel Heaton DO [address] [place] [address] Hematology/Oncology 12/17/22 Harriett Hayes PA-C [address] [place] [address] Pulmonary and Critical Care Medicine 12/17/22 Ros Ayala RN Specialty Timekeeping Supervisor Oncology 05/30/23 Laundry Housekeeping Aide Relationship Specialty Start Date End Date Noman Dean DO [address] [place] [address] PCP - General 12/19/14 Otoniel Heaton DO [address] [place] [address] Hematology/Oncology 12/17/22 Harriett Hayes PA-C [address] [place] [address] Pulmonary and Critical Care Medicine 12/17/22 Ros Ayala RN Specialty Timekeeping Supervisor Oncology 05/30/23 Laundry Housekeeping Aide Relationship Specialty Start Date End Date Noman Dean DO [address] [place], [place] [address] PCP - General 12/19/14 Otoniel Heaton DO [address] [place], [place] [address] Hematology/Oncology 12/17/22 Harriett Hayes PA-C [address] [place], [place] [address] Pulmonary and Critical Care Medicine 12/17/22 Ros Ayala, RN Specialty Timekeeping Supervisor Oncology 05/30/23 Reason for Visit (unrecogniz ed section and content) Reason Comments Results Reason Comments Follow Up Nail Fungus Reason Comments Patient Update Reason Comments Appointment Reason Onset Date Comments SPP Oral Oncology/hematology - Medication Refill 03/12/2022 Sprycel Reason Onset Date Comments Refill Request 03/12/2022 Reason Comments Calling about recent GI procedure result s Reason Onset Date Comments Refill Request 03/15/2022 Reason Comments New Pain Specialty Diagnoses / Procedures Referred By Contac t Referred To Contact Orthopedics Diagnoses Bilateral elbow joint pain Lateral epicondylitis of both elbows Procedures CONSULT TO ORTHOPAEDICS OFFICE/OUTPATIENT NEW HIGH MDM 60-74 MINUTES Noman Dean DO [address] [place] [address] Referral ID Status Reason Start Date Expiration Date V isits Requested Visits Authorized [id number] Closed PCP Requested Referral 02/13/2022 02/13/2023 1 1 Reason Comments Refill Request Reason Onset Date Comments SPP Oral Oncology/hematology - Medication Refill 04/08/2022 sprycel Reason Comments Radiology NM Specialty Diagnoses / Procedures Referred By Contac t Referred To Contact MR IMAGING Diagnoses Vitamin D deficiency Procedures MRI BRAIN WO/W IVCON MRI BRAIN BRAIN STEM W/O W/CONTRAST MATERIAL Mckenna Garcia PA-C [address] [place] [address] Mr Imaging Referral ID Status Reason Start Date Expiration Date V isits Requested Visits Authorized [id number] Closed Auto-Generate d Referral 02/15/2022 03/17/2023 1 1 Reason Comments Patient Update Patient Question Reason Onset Date Comments Refill Request 05/04/2022 Reason Comments Follow Up Reason Comments Radiology CT Specialty Diagnoses / Procedures Referred By Contac t Referred To Contact CT IMAGING Diagnoses Multiple sclerosis (HCC) Spontaneous bruising Fatigue, unspecified type Cervicalgia CML (chronic myeloid leukemia) (HCC) Procedures CT NECK SOFT TISSUE WO IVCON CT SOFT TISSUE NECK W/O CONTRAST MATERIAL Noman Dean L, DO [address] [place] [address] Ct Imaging Referral ID Status Reason Start Date Expiration Date V isits Requested Visits Authorized [id number] Closed Auto-Generate d Referral 05/13/2022 06/12/2023 1 1 Reason Comments Opened In Error Reason Comments Abdominal Pain right side states ge tting worse. 6:10 on pain scale. Describes it as sharp and stabbing mainly after meals. Has been taking Mylanta which seems to help symptoms Reason Comments Established Patient Reason Onset Date Comments SPP Oral Oncology/hematology - Medication Refill 06/05/2022 Sprycel 80mg Reason Onset Date Comments Refill Request 06/10/2022 Reason Comments Orders Reason Onset Date Comments SPP Oral Oncology/hematology - Medication Refill 07/03/2022 Sprycel Reason Comments Orders Reason Comments Procedure EGD Reason Comments Blurred Vision Both Eyes Cloudy Vision Both Eyes Reason Comments Question Reason Onset Date Comments SPP Oral Oncology/hematology - Medication Refill 07/31/2022 Sprycel 80mg Reason Comments Appointment Confirmation Pre-procedure i nstructions Reason Comments Schedule Surgery Reason Onset Date Comments F/U 3 Month Immunizations 08/13/2022 Flu vaccination Reason Comments Established Patient Follow Up Reason Onset Date Comments SPP Oral Oncology/hematology - Medication Refill 08/28/2022 Sprycel Reason Onset Date Comments Refill Request 09/07/2022 Reason Comments Social Work Services Reason Comments Established Patient Post Op Reason Onset Date Comments Refill Request 10/08/2022 Reason Comments Pre-Op Update No show to [facility] Reason Comments No Show Reason Onset Date Comments SPP Oral Oncology/hematology - Medication Refill 10/23/2022 Sprycel Reason Comments F/U 3 Month Reason Onset Date Comments SPP Oral Oncology/hematology - Medication Refill 11/19/2022 Sprycel Reason Comments Results - Ct Reason Onset Date Comments Refill Request 11/18/2022 Reason Onset Date Comments Refill Request 08/08/2022 Refill Request 12/05/2022 Reason Comments Patient Question Reason Onset Date Comments Refill Request 12/12/2022 Reason Onset Date Comments Refill Request 12/17/2022 Reason Comments Patient Request Reason Comments Established Patient COPD Reason Comments Derm Problem Mole removal Reason Onset Date Comments SPP Oral Oncology/hematology - Medication Refill 01/03/2023 Sprycel Reason Comments Spirometry Specialty Diagnoses / Procedures Referred By Contac t Referred To Contact [facility] Diagnoses Stage 2 moderate COPD by GOLD classification ([facility]) Abnormal CT scan, lung Procedures LUNG DIFFUSION CAPACITY (DLCO) DIFFUSING CAPACITY Harriett Hayes PA-C [address] [place] [address] Respiratory [place] [id number] Referral ID Status Reason Start Date Expiration Date V isits Requested Visits Authorized [id number] Closed Auto-Generate d Referral 12/25/2022 01/24/2024 1 1 Specialty Diagnoses / Procedures Referred By Contac t Referred To Contact [facility] Diagnoses Stage 2 moderate COPD by GOLD classification ([facility]) Abnormal CT scan, lung Procedures LUNG VOLUMES Harriett Hayes PA-C [address] [place] [address] [place] [address] Referral ID Status Reason Start Date Expiration Date V isits Requested Visits Authorized [id number] Closed Auto-Generate d Referral 12/25/2022 01/24/2024 1 1 Specialty Diagnoses / Procedures [facility] Diagnoses Stage 2 moderate COPD by GOLD classification ([facility]) Abnormal CT scan, lung Procedures SPIROMETRY BASELINE ONLY SPMTRY W/VC EXPIRATORY LUPILLO W/WO MXML VOL VNTJ Harriett Hayes PA-C [address] [place] [address] Res[facility] [place] [address] [place] [address] Referral ID Status Reason Start Date Expiration Date V isits Requested Visits Authorized [id number] Closed Auto-Generate d Referral 12/25/2022 01/24/2024 1 1 Reason Comments Blurred Vision Both Eyes Reason Onset Date Comments Refill Request 01/10/2023 Reason Onset Date Comments SPP Oral Oncology/hematology - Medication Refill 01/27/2023 Sprycel 80mg Reason Onset Date Comments Refill Request 01/30/2023 Reason Onset Date Comments SPP Oral Oncology/hematology - Medication Refill 02/20/2023 Sprycel Reason Onset Date Comments Refill Request 02/24/2023 Reason Comments EKG Reason Onset Date Comments SPP Oral Oncology/hematology - Medication Refill 03/26/2023 Sprycel Reason Comments F/U 3 Month Reason Comments Request for Medical Records 2020 through current year: EGD, colonoscopy and pathology results. Reason Onset Date Comments Refill Request 04/02/2023 Reason Onset Date Comments Refill Request 05/01/2023 Reason Onset Date Comments SPP Oral Oncology/hematology - Medication Refill 05/21/2023 Sprycel 80mg. Reason Onset Date Comments Insurance Authorization 05/26/2023 Pending PA submission. SPP Oral Oncology/hematology - Treatment Referra l 05/26/2023 Scemblix 40mg. Reason Comments Follow Up Reason Onset Date Comments Refill Request 05/27/2023 Reason Comments Timekeeping Supervisor - Other Oral Anti-Cance r Agents Education (asciminib) Reason Onset Date Comments Refill Request 06/02/2023 Reason Comments Follow Up Reason Onset Date Comments SPP Oral Oncology/hematology - Medication Refill 07/21/2023 Scemblix 40mg. Reason Onset Date Comments Refill Request 07/25/2023 Reason Onset Date Comments SPP Oral Oncology/hematology - Medication Refill 08/19/2023 Scemblix 40mg. Reason Comments Appointment LV FOR PATIENT TO C ALL SO WE CAN GET HIM SCHEDULED FOR A FOLLOW UP WITH MCKENNA GARCIA Reason Onset Date Comments Refill Request 09/15/2023 Reason Comments Established Patient 3 mo ov with labs Reason Comments Distress Assessment Reason Onset Date Comments Refill Request 09/23/2023 Specialty Diagnoses / Procedures Referred By Marissa t Referred To Contact CT IMAGING Diagnoses Wheezing Tobacco use Procedures CT CHEST WO IVCON DIAGNOSTIC COMPUTED TOMOGRAPHY THORAX W/O CNTRST DeanNoman, DO [address] [place] [address] Ct Imaging [facility]95 Referral ID Status Reason Start Date Expiration Date V isits Requested Visits Authorized [id number] Closed Auto-Generate d Referral 11/12/2022 12/12/2023 1 1 Specialty Diagnoses / Procedures Referred By Contac t Referred To Contact MR IMAGING Diagnoses Multiple sclerosis (HCC) Procedures MRI BRAIN WO/W IVCON MRI BRAIN BRAIN STEM W/O W/CONTRAST MATERIAL Mckenna Garcia PA-C [address] [place] [address] Mr Imaging [facility] Referral ID Status Reason Start Date Expiration Date V isits Requested Visits Authorized [id number] Closed Auto-Generate d Referral 04/15/2022 05/15/2023 1 1 Reason Onset Date Comments SPP Oral Oncology/hematology - Medication Refill 10/13/2023 scemblix Reason Onset Date Comments SPP Oral Oncology/hematology - Medication Refill 11/05/2023 Scemblix 40mg Reason Comments Derm Problem Mole removal back Reason Onset Date Comments SPP Oral Oncology/hematology - Medication Refill 01/02/2024 Scemblix FOR RECORDS PERTAINING TO PATIENTS WHO ARE OR HAVE BEEN ENROLLED IN A CHEMICAL DEPENDENCY/SUBSTANCEABUSE PROGRAM, SOME INFORMATION MAY BE OMITTED. This clinical summary was aggregated from multiple sources. Caution should be exercised in using it in the provision of clinical care. This summary normalizes information from multiple sources, and as a consequence, information in this document may materially change the coding, format and clinical context of patient data. In addition, data may be omitted in some cases. CLINICAL DECISIONS SHOULD BE BASED ON THE PRIMARY CLINICAL RECORDS. [employer] provides no warranty or guarantee of the accuracy or completeness of information in this document.
[2024-01-12 06:59] VITALS: BP 112/82; PULSE 75; RESP 18; TEMP 36.9; O2SAT 98; BMI 25.7
--- NOTE | 2024-01-12 06:59 | HP.PCM_ITS ---
History and Physical Date of Admission: 01/12/24 53 M who presents to the office today for Pulmonary OV noting dysphagia. [facility] workup: ? EGD [facility] 12.26.20 duodenal inflammation with erosions, friability and granularity; gastric ulcerations with severe inflammation. ? EGD [facility] 3 gastric ulcerations. ? EGD [facility] 6.12.21 gastritis. ? EGD [facility] 08.13.22 without visual abnormality. *[facility] established 03.25.23 with history as above. Contact 05.14.23 start Linzess 72mcg. 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 Biochemical AMA, ASM, hepatitis without pertinent abnormality. RAST seafood H; low: scallop and shrimp. IgG L502; BRANDT lambda light chain specificity, unable to determine MSpike; pANCA H1:20; dbl Strand DNA H11 Contact 05.23.23 with bloodwork results; he is established with [facility] oncology services for leukemia. Results forwarded to Dr. Heaton. OV 7.3.23 increase Linzess to 290mcg. Reports he is able to take PPI with cancer treatment (there has been some confusion regarding PPI use with cancer treatment) OV 1130.23 PO intake causes upset stomach with burning/bloating. Cancer treatment has changed from Sprycel to Scemblix; he is currently taking omeprazole 40mg QD and Linzess 290mcg. BM every couple of days with complete evacuation and no difficulty with movement. ROS Const Constitutional: No anorexia, fatigue, fever(s), weight change or sleep problems Eyes Eyes: No change in vision ENT ENT: No abnormal hearing, difficulty swallowing, mouth lesions, tongue swelling or throat swelling Resp Respiratory: No cough or shortness of breath Cardio Cardiology: No chest pain at rest, chest pain with exertion, shortness of breath or dyspnea on exertion Gastro GI: No difficulty swallowing Genitourinary Male: No difficulty urinating or burning urination Musc Musculoskeletal: No joint pain, joint swelling, muscle weakness or decreased muscle mass Skin Skin: No hair loss in leg, yellowing of the eye, itchy eyes, rash, skin ulcer or skin swelling Neuro Neurology: No abnormal hearing, abnormal movements, confusion, unsteady gait/balance or memory loss Psych Psychiatric: No anxiety, No confusion and No memory loss Endo Endocrine: No fatigue or weight change Aller/Imm Allergy/Immunologic: No itchy eyes, throat swelling or tongue swelling [place]/Lymp Hematologic/Lymphatic: No easy bleeding, easy bruising or enlarged lymph nodes Exam Const General: cooperative, healthy appearing and comfortable Nutritional Appearance: average body habitus Orientation: alert, awake and oriented x3 Eyes Sclera: sclerae normal Resp Effort & Inspection: normal respiratory effort GI Inspection: normal to inspection Palpation: soft, no hepatosplenomegaly, no masses and tender in the RUQ Neuro Gait: normal gait Psych Mood: congruent mood Quality Reporting Tobacco Screening ([facility] 138) Smoking Status: Current every day smoker Assessment and Plan Assessment and Plan (1) Epigastric abdominal pain: Status: Chronic Plan: 52 yr old male with 5 mos of oropharyngeal/upper esophageal dysphagia and several years of upper abd discomfort/nausea. He underwent an upper endoscopy and was discovered to have multiple ulcers in his gastric antrum with bleeding stigmata. He states his last upper endoscopy was clear and he did not have any gastric ulcers. He is on PPI therapy and he is also taken a lot of Maalox due to abdominal pain. He is still on his medical regimen for chronic myelocytic leukemia. He does not take any nonsteroidals. He has no history of H. pylori and it was negative on the biopsies from the ulcers in his stomach. He has no history of bile reflux gastritis. His gastrin level was drawn and it was not elevated. I suspected that he is having recurrent gastric ulcer secondary to medications. Most likely medication could be his medicine for CML. Also on the differential diagnosis for his abdominal pain does include gastroparesis. He will undergo gastric emptying study. Pending study we may need to repeat his upper endoscopy. (2) Dysphagia: Status: Chronic Qualifiers: Dysphagia type: oropharyngeal phase Qualified Code(s): R13.12 - Dysphagia, oropharyngeal phase (3) Chronic constipation: Status: Chronic I have examined the patient and the H&P has been reviewed. There are no clinical changes since date of exam.
[2024-01-12] MEDS: Lactated Ringers 1,000 ML 15 ML IV (07:06)
--- NOTE | 2024-01-12 07:45 | EGD_PTH ---
PATHOLOGY RESULTS PATIENT: RUSSELL VICTORIA LOC: EN U#:[id number] AGE/SX: 53/M ROOM: RE01/12/[address]: Dr. Charly Parada DO : 1970 BED: DIS: 01/12/2024 SPEC #: [id number] RECD: 01/12/24 11:27 STATUS: DESIRE CAMILO #: [id number] DERRICK: 01/12/24 07:[address]: Charly Parada DEPT: SURGICAL PATHOLOGY RECD BY: Jodee Dickey ENTERED: 01/12/24 11:28 SP TYPE: EGD BIOPSY BERTHA DR: Dr. Noman Dean DO Tissues: Gastric mucous membrane Esophageal mucous membrane Procedures: Special Stain Group II Surgery Specimen Level IV Alcian Blue/PAS (control) HEADER OPERATION: EGD, biopsy PRE-OP DIAGNOSIS: Epigastric abdominal pain, dysphagia, chronic constipation TISSUE SUBMITTED: A - Gastric ulcer biopsy, B - Distal esophagus biopsy MICROSCOPIC DIAGNOSIS A. Gastric ulcer, biopsy: Mild chronic inflammation. Focal denudation of mucosa. See comment. B. Distal esophagus, biopsy: Fragments of gastric mucosa with mild chronic inflammation. No evidence of goblet cell metaplasia. See comment. AM:christiana 01/13/2024 COMMENT A. The results of immunohistochemistry for Helicobacter pylori will be reported separately ([id number]). B. Alcian blue/PAS stain with matched control supports the above diagnosis. MICROSCOPIC DESCRIPTION Slides are reviewed. GROSS DESCRIPTION A - Received in fixative is one container labeled with the patient's name and designated gastric ulcer biopsy. The specimen consists of two irregular fragments of light william soft tissue that in aggregate measure 0.6 x 0.3 x 0.1 cm. The specimen is totally submitted in one cassette. B - Received in fixative is one container labeled with the patient's name and designated distal esophagus biopsy. The specimen consists of multiple irregular fragments of light william soft tissue that in aggregate measure 1.0 x 0.3 x 0.1 cm. The specimen is totally submitted in one cassette. / SJ:christiana 01/12/2024 TC:3 CPT: 33657 x2, 88562
--- NOTE | 2024-01-12 07:45 | IMM_PTH ---
PATHOLOGY RESULTS PATIENT: RUSSELL VICTORIA LOC: EN U#:[id number] AGE/SX: 53/M ROOM: RE01/12/[address]: Dr. Charly Parada DO : 1970 BED: DIS: 01/12/2024 SPEC #: [id number] RECD: 01/12/24 15:00 STATUS: DESIRE CAMILO #: [id number] DERRICK: 01/12/24 07:[address]: Charly Parada DEPT: IMMUNOHISTOCHEMISTRY RECD BY: Franchesca Campa ENTERED: 01/12/24 15:00 SP TYPE: IMMUNO OTHR DR: Dr. Noman Dean DO Tissues: Stomach, NOS Procedures: H Pylori (initial) PHYSICIAN & INSTITUTION [place] [id number] SPECIMEN INFORMATION: Tissue Source: A - Gastric ulcer Clinical Info: Epigastric abdominal pain, dysphagia, chronic constipation Specimen Number: [id number] CPT code: 03281 METHODOLOGY: Deparaffinized sections of prefer/formalin-fixed tissue or PAP/DQ stained slides are incubated with monoclonal/polyclonal antibodies/oligonucleotide probes. Localization is made via biotin free immunoperoxidase method. Appropriate controls are performed and reacted as expected. Results on target cell population are indicated in the following table: RESULTS: ANTIBODY / CLONE RESULT Block A H Pylori (polyclonal) negative These tests were developed and their performance characteristics determined by [facility]. They may not have been cleared or approved by the U.S. Food and Drug Administration. The FDA has determined that such clearance or approval is not necessary. The above immunohistochemical/dualISH markers are ordered and reviewed by the Pathologist. INTERPRETATION: A. Gastric ulcer, biopsy: Negative for Helicobacter pylori organisms. AM:christiana 01/13/2024
[2024-01-12 08:22] VITALS: BP 101/68; BP 112/82; PULSE 69; RESP 16; TEMP 36.7; O2SAT 96
--- NOTE | 2024-01-12 08:24 | OP.EGD_ITS ---
Patient Name: Otoniel Desai Procedure Date: 01/12/2024 8:04 AM Date of : 1970 Age: 53 Procedure: Upper GI endoscopy Indications: Follow-up of Domingo's esophagus, Peptic ulcer Providers: Charly Parada DO Referring MD: Noman Dean Medicines: Monitored Anesthesia Care Patient Profile: This is a 53 year old male. Refer to note in patient chart for documentation of history and physical. Patient has symptoms of chronic heartburn and chronic nausea. Complications: No immediate complications. Procedure: Pre-Anesthesia Assessment: - Prior to the procedure, a History and Physical was performed, and patient medications and allergies were reviewed. The patient is competent. The risks and benefits of the procedure and the sedation options and risks were discussed with the patient. All questions were answered and informed consent was obtained. Patient identification and proposed procedure were verified by the physician in the pre-procedure area. Mental Status Examination: alert and oriented. Airway Examination: normal oropharyngeal airway and neck mobility. Respiratory Examination: clear to auscultation. CV Examination: normal. Prophylactic Antibiotics: The patient does not require prophylactic antibiotics. Prior Anticoagulants: The patient has taken no anticoagulant or antiplatelet agents. ASA Grade Assessment: II - A patient with mild systemic disease. After reviewing the risks and benefits, the patient was deemed in satisfactory condition to undergo the procedure. The anesthesia plan was to use monitored anesthesia care (MAC). Immediately prior to administration of medications, the patient was re-assessed for adequacy to receive sedatives. The heart rate, respiratory rate, oxygen saturations, blood pressure, adequacy of pulmonary ventilation, and response to care were monitored throughout the procedure. The physical status of the patient was re-assessed after the procedure. After obtaining informed consent, the endoscope was passed under direct vision. Throughout the procedure, the patient's blood pressure, pulse, and oxygen saturations were monitored continuously. The Endoscope was introduced through the mouth, and advanced to the second part of duodenum. The upper GI endoscopy was accomplished without difficulty. The patient tolerated the procedure well. Scope In: 8:11:55 AM Scope Out: 8:17:16 AM Total Procedure Duration Time 0 hours 5 minutes 21 seconds Findings: There were esophageal mucosal changes suggestive of short-segment Domingo's esophagus present in the lower third of the esophagus. The maximum longitudinal extent of these mucosal changes was 3 cm in length. Mucosa was biopsied with a cold forceps for histology in a targeted manner at intervals of 1 cm in the lower third of the esophagus. One specimen bottle was sent to pathology. Verification of patient identification for the specimen was done. Estimated blood loss was minimal. One non-bleeding linear gastric ulcer with no stigmata of bleeding was found in the prepyloric region of the stomach. The lesion was 3 mm in largest dimension. Biopsies were taken with a cold forceps for histology. Verification of patient identification for the specimen was done. Estimated blood loss was minimal. Biopsies were taken with a cold forceps for Helicobacter pylori testing. Verification of patient identification for the specimen was done. Estimated blood loss was minimal. No gross lesions were noted in the first portion of the duodenum. Impression: - Esophageal mucosal changes suggestive of short-segment Domingo's esophagus. Biopsied. - Non-bleeding gastric ulcer with no stigmata of bleeding. Biopsied. - No gross lesions in the first portion of the duodenum. Recommendation: - Discharge patient to home. - Resume previous diet. - Continue present medications. - Await pathology results. - Repeat upper endoscopy in 1 year for surveillance. Procedure Code(s): --- Professional --- 54849, Esophagogastroduodenoscopy, flexible, transoral; with biopsy, single or multiple CPT copyright 2021 [employer]. All rights reserved. The codes documented in this report are preliminary and upon grain operator review may be revised to meet current compliance requirements. Charly Parada DO 01/12/2024 8:24:41 AM This report has been signed electronically. Number of Addenda: 0 Note Initiated On: 01/12/2024 8:04 AM
[2024-01-12 08:25] VITALS: BP 112/82; BP 97/69; PULSE 66; RESP 16; O2SAT 95
--- NOTE | 2024-01-12 08:25 | OP.CCLET_ITS ---
01/12/2024 Noman Dean [address] [place] [address] Re : Upper GI endoscopy procedure for Otoniel Desai Dear Dr. Dean This procedure was performed on Friday, January 12, 2024. My impressions and recommendations are as follows: Impressions : - Esophageal mucosal changes suggestive of short-segment Domingo's esophagus. Biopsied. - Non-bleeding gastric ulcer with no stigmata of bleeding. Biopsied. - No gross lesions in the first portion of the duodenum. Recommendations : - Discharge patient to home. - Resume previous diet. - Continue present medications. - Await pathology results. - Repeat upper endoscopy in 1 year for surveillance. My findings are described in the full procedure note, which is enclosed. If I can be of further assistance, please feel free to contact me at . Sincerely, Charly Parada, 01/12/2024 8:24:41 AM This report has been signed electronically.
[2024-01-12 08:30] VITALS: BP 112/82; BP 95/69; PULSE 68; RESP 16; O2SAT 95
[2024-01-12 08:43] VITALS: BP 103/72; BP 112/82; PULSE 68; RESP 16; TEMP 36.5; O2SAT 96
[2024-01-12 09:03] VITALS: BP 112/82
== END 2024-01-12 09:04 | disposition home or self-care (01) ==
LOC: EN 06:42 → AC 06:43
PROVIDERS: PCP Student in an Organized Health Care Education/Training Program; Referring Provider Student in an Organized Health Care Education/Training Program; Visit Provider Internal Medicine Gastroenterology
PROC: 0DJ08ZZ Inspection of Upper Intestinal Tract, Via Natural or Artificial Opening Endoscopic (ICD-10-PCS; CPT 43235; principal; 2024-01-12 07:40)
DX: R10.13 Epigastric pain (principal); K25.9 Gastric ulcer, unspecified as acute or chronic, without hemorrhage or perforation; F17.200 Nicotine dependence, unspecified, uncomplicated; Z85.6 Personal history of leukemia; G89.29 Other chronic pain; K59.09 Other constipation; R13.12 Dysphagia, oropharyngeal phase; K29.50 Unspecified chronic gastritis without bleeding
CPT/HCPCS: 43239; 88305; 88313; 88342; J7120; J2405

== ENCOUNTER → 2024-02-18 | Outpatient (CLI) | payer MEDICARE, SELFPAY ==
[2024-02-18] VITALS (15 sets, daily range): BP systolic 107–145; BP diastolic 54–99; PULSE 61–64; RESP 12–18; TEMP 36.6; O2SAT 96–99; BMI 27.9
--- NOTE | 2024-02-18 | IMM_PTH ---
PATIENT: OTONIEL VICTORIA LOC: CT U#:[id number] AGE/SX: 53/M ROOM: RE02/18/[address]: Dr. Otoniel Heaton DO : 1970 BED: DIS: 02/18/2024 SPEC #: [id number] RECD: 02/19/24 13:41 STATUS: DESIRE REQ #: [id number] DERRICK: 02/18/24 00:[address]: Otoniel Heaton DEPT: IMMUNOHISTOCHEMISTRY RECD BY: Fran Leggett ENTERED: 02/19/24 13:43 SP TYPE: IMMUNO OTHR DR: Dr. Noman Dean DO Tissues: A - Bone marrow of iliac crest B - Bone marrow of iliac crest Procedures: CD138 (initial) CD34 (add) KAPPA (add) LAMBDA (add) PHYSICIAN & INSTITUTION [place] [id number] SPECIMEN INFORMATION: Tissue Source: A. Bone marrow core, B. Bone marrow clot Clinical Info: CML and smoldering myeloma Specimen Number: [id number] CPT code: 92448 METHODOLOGY: Deparaffinized sections of prefer/formalin-fixed tissue or PAP/DQ stained slides are incubated with monoclonal/polyclonal antibodies/oligonucleotide probes. Localization is made via biotin free immunoperoxidase method. Appropriate controls are performed and reacted as expected. Results on target cell population are indicated in the following table: RESULTS: ANTIBODY / CLONE RESULT Block A CD138 (B-A38) positive, a few cells [place] (polyclonal) negative Lambda (polyclonal) positive CD34 (QBEnd-10) negative Block B CD138 (B-A38) positive, a few cells [place] (polyclonal) negative Lambda (polyclonal) positive CD34 (QBEnd-10) negative These tests were developed and their performance characteristics determined by [facility]. They may not have been cleared or approved by the U.S. Food and Drug Administration. The FDA has determined that such clearance or approval is not necessary. The above immunohistochemical/dualISH markers are ordered and reviewed by the Pathologist. INTERPRETATION: A. Bone marrow core; A few plasma cells with lambda monoclonality noted. Significant increase of blasts is not seen. B. Bone marrow clot; A few plasma cells with lambda monoclonality noted. Significant increase of blasts is not seen. Comment. Aspirate smears shows 3% plasma cells. Case has been reviewed in consultation with Dr. Che who concurs with the above diagnosis. IDC:SONALI PEARSON/ 02/25/2024
--- NOTE | 2024-02-18 | BMB_PTH ---
PATIENT: OTONIEL VICTORIA LOC: CT U#:[id number] AGE/SX: 53/M ROOM: RE02/18/[address]: Dr. Otoniel Heaton DO : 1970 BED: DIS: 02/18/2024 SPEC #: [id number] RECD: 02/18/24 10:49 STATUS: DESIRE REQ #: [id number] DERRICK: 02/18/24 00:[address]: Otoniel Heaton DEPT: BONE MARROW RECD BY: Vane Rene ENTERED: 02/18/24 10:49 SP TYPE: BMB OTHR DR: Dr. Noman Dean DO Tissues: A - Bone marrow, NOS B - Bone marrow, NOS C - Bone marrow, NOS Procedures: Decalcification bone/plaque Bone Marrow Aspiration Bone Marrow Core Biopsy Iron Stain Bone Marrow HEADER MOPERATION: CT guided bone marrow aspiration PRE-OP DIAGNOSIS: CML and Smoldering myeloma TISSUE SUBMITTED: A - Core, B - Clot, C - Smears, and send outs (flow, cytogenetics) BONE MARROW DIAGNOSIS Bone marrow core, clot and aspirate smears; A few plasma cells with lambda monoclonality noted. See comment. LILI/mr 02/25/24 COMMENT Flow cytometric study from [facility] shows abnormal cytoplasmic lambda restricted plasma cell population detected, representing <1% of analyzed cells. Complete report is viewable in patient's EMR. Immunohistochemistry ([id number]) supports the above diagnosis and shows that a few plasma cells with the lambda monoclonality. Aspirate smears show 3% plasma cells. Significant increase of blasts is not seen. Cytogenetic studies are pending. Correlation with clinical, laboratory and radiologic findings and appropriate follow up are necessary. Case has been reviewed in consultation with Dr. Che who concurs with the above diagnosis. IDC:AM BONE MARROW STUDY Slides are reviewed. CBC DATE: 02/18/24 WBC 8.2; RBC 5.29; HGB 14.2; HCT 45.0; MCV 85.1; RDW 14.2; PLTS 251,000 SEGS 52.7%; LYMPHS 32.9%; MONOS 9.2%; EOS 3.5%; BASOS 0.6%, Immature granulocytes:1.1% PERIPHERAL SMEAR: Submitted. RBC: Normocytic and normochromic. WBC: Unremarkable. The WBC count is compatible to as reported above. PLTS: Adequate. BONE MARROW ASPIRATE DIFFERENTIAL: 200 cell count. Blasts % (normal 0-2): 1 Promyelocytes % (normal 1-5): 0 Myelocytes and metamyelocytes % (normal 17-41): 26 Bands and Segs % (normal 15-32): 30 Eos % (normal 1-6): 4 Basos % (normal 0-1): 1 Monocytes % (normal 0-4): 1 Erythroid Precursors % (normal 17-35): 27 Lymphocytes % (normal 7-13): 7 Plasma Cells % (normal 0-2): 3 ASPIRATE FINDINGS: Site: Not specified Paucispicular, Cellular M/E ratio: 2.2(Normal 1.5-4.0) Megakaryocytes: Present and normal morphology. Erythropoiesis: Normoblastic. Granulopoiesis: Progressive and unremarkable. Comment: A few mature plasma cells are noted. CORE BIOPSY FINDINGS: Site: Not specified Comment: This specimen consists of a small amount of blood clot with rare bone marrow spicules with trilineage hematopoiesis. Immunohistochemistry ([id number]) shows a few plasma cells with lambda monoclonality. Significant increase of blasts is not seen. ASPIRATE CLOT FINDINGS: Site: Not specified Marrow particles: Several Cellularity: 50% M/E ratio: Within normal limits. Megakaryocytes: Present and adequate in number. Granulomas: Absent. Lymphoid aggregates: Absent. Atypical infiltrates: Present. Comment: Immunohistochemistry ([id number]) shows a few plasma cells with lambda monoclonality. Significant increase of blasts is not seen. SPECIAL STAINS WITH MATCHED CONTROLS: Iron: Absent Reticulin: No significant increase of reticulin fibers is noted. PAS: Highlights myeloid cells and megakaryocytes. BONE MARROW GROSS A - Received is a container labeled with the patient's name and designated Bone marrow. The specimen consists of two fragments of blood clot and possible fragments of bone measuring in aggregate 0.5x0.1x0.1cm. The specimen is totally submitted in one cassette after decalcification. B - Received labeled with the patient's name and designated bone marrow is a specimen that consists of approximately 2 ml of bloody fluid that on filtration yields multiple minute fragments of blood clots measuring in aggregate 2.5 x 0.8 x 0.1 cm. The specimen is totally submitted in one cassette. C - Also received are 16 unstained and 1 peripheral stained slide. The unstained slides are submitted for appropriate staining. Also received are 1 green top tube which are sent to our reference lab for flow and cytogenetics. LILI/ 02/18/2024 TC:5 CPT: 67963, 28894, 05503 x2, 12707 x3, 69351 ADDENDUM ADDENDUM ADDENDUM ADDENDUM ADDENDUM ADDENDUM ADDENDUM ADDENDUM 03/03/2024 08:50 ADDENDUM 03/03/2024 08:50 ADDENDUM 03/03/2024 08:50 ADDENDUM 03/03/2024 08:50 ADDENDUM 03/03/2024 08:50 CYTOGENETICS REPORT FROM [facility] CYTOGENETIC RESULT: 46,XY(20) INTERPRETATION: Normal male karyotype was observed in twenty metaphases analyzed. Please see complete report in e-chart or EMR
[2024-02-18 09:05] LABS: Absolute Lymphocyte Count 2.71 X10^3/uL (0.83-4.51); Absolute Neutrophil Count 4.3 X10^3/uL (2.0-7.7); Basophil# 0.05 X10^3/uL; Basophil% 0.6 % (0-1); Eosinophil# 0.29 X10^3/uL; Eosinophils% 3.5 % (0-5); Hemoglobin 14.2 g/dL (13.0-16.5); Lymphocyte # 2.71 X10^3/ul (0.83-4.51); Lymphocyte % 32.9 % (19-41); Mean Corp Hgb Conc 31.6 g/dL (32-36); Mean Corpuscular Hgb 26.8 pg (27.0-32.0); Mean Corpuscular Volume 85.1 fL (80-94); Mean Platelet Vol. 10.8 fl (6.2-12.0); Monocyte# 0.76 X10^3/uL; Monocyte% 9.2 % (0-10); NRBC Flagged by Analyzer 0 % (0-5); Neutrophil # 4.33 X10^3/uL (2.7-7.7); Neutrophil % 52.7 % (47-70); Platelet Count 251 K/mm3 (150-450); RBC Distribution Width CV 14.2 % (11.6-14.6); RBC Distribution Width SD 43.7 fl (35.1-43.9); Red Blood Count 5.29 M/mm3 (4.6-6.2); White Blood Count 8.2 K/mm3 (4.4-11.0)
[2024-02-18] MEDS: 0.9% Saline Lock 10 ML Syringe IV (09:30)
[2024-02-18] MEDS: 0.9% Normal Saline (250mL Bag) 250 ML 15 ML IV (09:46)
[2024-02-18] MEDS: Midazolam 2 MG/2 ML Syringe IV (09:54)
[2024-02-18] MEDS: fentaNYL 100 MCG/2 ML Ampul IV (09:56)
[2024-02-18] MEDS: Lidocaine 2% (20 ml mdv) 20 ML Vial INFILT (10:06)
--- NOTE | 2024-02-18 11:43 | PCM.OP.PRO ---
Procedure Report Date of Procedure: 02/18/24 Assessment & Plan Assessment/Plan (1) Smoldering myeloma: PLAN: PROCEDURE: CT guided bone marrow biopsy and aspiration of the right iliac bone ORDERING PROVIDER: Dr. Heaton INDICATION: Male, 53 years old. Smoldering myeloma. PROVIDER: Jade Olsen STATE APPELLATE CLERK-RIGGER THIRD RADIATION DOSAGE (If Supplied By Facility): CTDIvol = 22.71 mGy, DLP = 345.77 mGycm. Individualized dose optimization techniques were utilized. CONSENT: The risks, benefits, and alternatives to the procedure were explained to the patient. The specific risk of hemorrhage requiring further treatment or intervention was detailed and accepted. Follow-up instructions were discussed with the patient as well. Written informed consent was obtained. PRE-PROCEDURE SEDATION ASSESSMENT: Current history and physical dictated by referring physician and reviewed. No clinical changes since date of exam. Patient has an ASA Class of 2. PROCEDURAL SEDATION PROTOCOL: The Drugs used were: 2 mg Versed, IV, and 50 mcg Fentanyl, IV. The sedation time was: 30 minutes, starting at 9:54 AM and terminated at 10:24 AM. The procedural sedation protocol was independently monitored by the department nurse. TECHNIQUE The patient was brought into the CT suite and placed in the prone position. An appropriate entry site was identified. The overlying skin was prepped and draped in the usual sterile fashion. 2% lidocaine was administered subcutaneously for local anesthesia. Under CT guidance, a bone marrow biopsy and bone marrow aspirate were performed of the right iliac bone using an 11-gauge bone marrow biopsy kit. Hematology staff was present to prepare the specimen slides and transport the specimen to the laboratory for analysis. Hemostasis was obtained, and a sterile occlusive dressing was applied. The patient tolerated the procedure well without immediate complications. IMPRESSION: Successful CT guided bone marrow biopsy and aspiration of the right iliac bone as described. Procedural Sedation protocol utilized with independent monitoring by the department nurse. Procedures Radiology Radiology CT Procedures: 99224 Biopsy Bone Marrow
[2024-03-12 07:43] LABS: Miscellaneous Lab Procedure SEE PATH REPORT; Miscellaneous Lab Procedure 2 SEE PATH REPORT
== END | disposition home or self-care (01) ==
PROVIDERS: Nurse Practitioner Acute Care; PCP Student in an Organized Health Care Education/Training Program; Referring Provider Internal Medicine Hematology & Oncology; Visit Provider Internal Medicine Hematology & Oncology
DX: D47.2 Monoclonal gammopathy (principal); C92.10 Chronic myeloid leukemia, BCR/ABL-positive, not having achieved remission
CPT/HCPCS: 38222; 36415; 77012; 85025; 88305; 88311; 88313; 88341; 88342; 99156; 99157; J7050; A4216

== ENCOUNTER 2025-05-08 20:50 | Emergency (ER) | payer MEDICARE, SELFPAY ==
[2025-05-08] VITALS (9 sets, daily range): BP systolic 80–120; BP diastolic 60–105; PULSE 88–145; RESP 16–18; TEMP 36.7; O2SAT 97–100; BMI 28.3
[2025-05-08] MEDS: 0.9% Normal Saline (1000mL) 1,000 ML 999 ML IV ×2 (20:50→22:59)
--- NOTE | 2025-05-08 21:12 | EKG12_ITS ---
Test Reason : Blood Pressure : */* mmHG Vent. Rate : 109 BPM Atrial Rate : 109 BPM P-R Int : 152 ms QRS Dur : 86 ms QT Int : 334 ms P-R-T Axes : 71 86 61 degrees QTcB Int : 449 ms Sinus tachycardia Otherwise normal ECG Confirmed by Meet Regan ([id number]), food editor RACHAEL CONTRERAS ([id number]) on 05/10/2025 6:17:39 AM Referred By: Confirmed By: Meet Regan
--- NOTE | 2025-05-08 21:13 | EX.ED.DYSGE1 ---
HPI History of Present Illness Chief Complaint: Syncope Informant: patient, family and EMS Narrative Narrative: 54-year-old male had a syncopal episode prior to being transported here by EMS. He has significant other witnessed it, she states that he was walking through a doorway and started to look like he was going to pass out and collapsed so she helped him down to the ground, and he was unconscious for less than a minute before he started coming around. Other than feeling lightheaded patient denies any prodromal symptoms otherwise. Denies any chest pain, dyspnea, palpitations, focal neurologic symptoms. No injury. Denies any vision changes right now. He denies any recent illness acutely, but he has a history of COPD occasionally he is dyspneic with it. He has a history of MS that does not give him chronic day-to-day disability, CML which he states is in remission, MGUS, and mental health issues. For the latter he states he takes his medications. For the CML/MGUS, he states he is supposed to be on an oral chemotherapeutic medication but he has not been on it for a long time because it is too expensive and he cannot afford it. Takes no antiplatelet or anticoagulants. No history of DVT or PE. No recent leg pain or swelling. States periodically he is lightheaded with standing up fast. He states he drinks plenty of fluids throughout the day. Patient states he feels fine now. Denies having any symptoms of pain, dyspnea, nausea, headache. [facility] Medical History Multiple sclerosis History of Clostridium difficile infection Shortness of breath on exertion History of stress test Hx of bipolar disorder Easy bruising Wears dentures Wears glasses Cancer Anxiety Rheumatoid arthritis DVT (deep venous thrombosis) High cholesterol History of leukemia Back pain Migraine headache Syncope History of ulceration Smoker History of pain when walking History of echocardiogram Hypertension History of irregular heartbeat GERD (gastroesophageal reflux disease) Dyspnea COPD (chronic obstructive pulmonary disease) Arthritis Arrhythmia Home Medications ?Medication ?Instructions ?Recorded ?Last Taken ?Type gemfibrozil 600 mg tablet 600 mg PO BID 07/15/14 Unknown History vilazodone 40 mg tablet (Viibryd) 40 mg PO DAILY 07/15/14 01/12/24 History gabapentin 600 mg tablet 600 mg PO BID 05/03/15 01/12/24 History lamotrigine 200 mg tablet 200 mg PO DAILY 05/03/15 01/12/24 History (Lamictal) omeprazole 40 mg capsule,delayed 40 mg PO DAILY 01/03/23 01/12/24 History release dextroamphetamine-amphetamine 10 10 mg PO PRN PRN ADHD 05/14/23 Unknown History mg tablet dextroamphetamine-amphetamine ER 30 mg PO PRN PRN ADHD 05/14/23 Unknown History 30 mg 24hr capsule,extend release asciminib 40 mg tablet (Scemblix) 80 mg PO DAILY 01/07/24 01/12/24 History cyanocobalamin (vitamin B-12) 1,000 mcg IM QWEEK 01/07/24 Unknown History 1,000 mcg/mL injection solution hydrocodone-acetaminophen 5-325mg 1 tab PO Q6H PRN pain 01/07/24 Unknown History 5mg-325mg budesonide 3 mg 6 mg (2 x 3 mg) PO DAILY #30 ea 11/17/24 Unknown Rx capsule,delayed,extended release linaclotide 290 mcg capsule 290 mcg PO DAILY #30 caps 12/07/24 Unknown Rx (Linzess) aripiprazole 5 mg tablet (Abilify) 5 mg PO DAILY 05/08/25 Unknown History fluticasone fur. 100 mcg-umeclid 1 ea inhalation DAILY 05/08/25 Unknown History 62.5 mcg-vilant 25 mcg inhalat.powder (Trelegy Ellipta) oxybutynin chloride 15 mg 15 mg PO DAILY 05/08/25 Unknown History tablet,extended release 24 hr sildenafil 100 mg tablet (Viagra) 100 mg PO DAILY PRN sexual activity 05/08/25 Unknown History Allergy/AdvReac Type Severity Reaction Status Date / Time shellfish derived Allergy Mild unknown Verified 05/08/25 20:50 Environmental Allergies: Allergy Itching Verified 05/08/25 20:50 Uncoded Penicillins (PCN) Allergy Rash Verified 05/08/25 20:50 topiramate (From Topamax) Allergy Hives Verified 05/08/25 20:50 aspirin AdvReac Nausea Verified 05/08/25 20:50 Family History Mother Heart disease Father Prostate cancer Sister Lung cancer Surgical History (Updated 02/07/24 @ 10:40 by Rachana Riojas) Hx of colonoscopy History of esophagogastroduodenoscopy (EGD) History of dental surgery Hx of surgical procedure Hx of elbow surgery Hx of surgical procedure History of tonsillectomy Social History Smoking Status: Current every day smoker tobacco type: cigarettes alcohol intake: never ROS ROS ED Constitutional Constitutional ED: Denies chills or fever(s) Eyes Eyes: Denies change in vision or diplopia ENT ENT ED: Denies rhinorrhea or sore throat Cardiovascular Cardiovascular: Reports lightheadedness and syncope; Denies chest pain or palpitations Respiratory/Chest Respiratory/Chest: Denies cough or dyspnea Gastrointestinal Gastrointestinal: Denies abdominal pain, diarrhea, nausea or vomiting Genitourinary Genitourinary ED: Denies dysuria or hematuria Musculoskeletal Musculoskeletal: Denies back pain or neck pain Integumentary Denies abscess or rash Neurologic Neurologic: Denies headache(s), paresthesias or weakness Psychiatric Psychiatric: Denies anxiety or suicidal thoughts EXAM Physical Exam Const Vital Signs: 05/08/25 20:50 05/08/25 20:50 05/08/25 21:12 Temperature 98.1 F Temperature Source Oral Pulse Rate 103 H Pulse Rate [Lying] Pulse Rate [Sitting (for 1 minute prior to obtaining)] Pulse Rate [Standing (for 1 minute prior to obtaining)] Respiratory Rate 16 Respiratory Effort Normal Non-Labored Respiratory Pattern Normal Blood Pressure 120/105 H Blood Pressure [Lying] Blood Pressure [Sitting (for 1 minute prior to obtaining)] Blood Pressure [Standing (for 1 minute prior to obtaining)] Blood Pressure Mean 110 Blood Pressure Mean [Lying] Blood Pressure Mean [Sitting (for 1 minute prior to obtaining)] Blood Pressure Mean [Standing (for 1 minute prior to obtaining)] Pulse Ox 98 100 Oxygen Delivery Method Room Air Room Air 05/08/25 21:15 05/08/25 21:17 05/08/25 21:30 Temperature Temperature Source Pulse Rate 125 H Pulse Rate [Lying] 102 H Pulse Rate [Sitting (for 1 minute prior to obtaining)] 128 H Pulse Rate [Standing (for 1 minute prior to obtaining)] 145 H Respiratory Rate 18 Respiratory Effort Respiratory Pattern Blood Pressure 120/85 H Blood Pressure [Lying] 108/78 Blood Pressure [Sitting (for 1 minute prior to obtaining)] 117/90 H Blood Pressure [Standing (for 1 minute prior to obtaining)] 80/60 L Blood Pressure Mean 96 Blood Pressure Mean [Lying] 88 Blood Pressure Mean [Sitting (for 1 minute prior to obtaining)] 99 Blood Pressure Mean [Standing (for 1 minute prior to obtaining)] 66 Pulse Ox 99 99 Oxygen Delivery Method Room Air Room Air 05/08/25 22:00 05/08/25 22:30 05/08/25 23:00 Temperature Temperature Source Pulse Rate 106 H 109 H 98 Pulse Rate [Lying] Pulse Rate [Sitting (for 1 minute prior to obtaining)] Pulse Rate [Standing (for 1 minute prior to obtaining)] Respiratory Rate 18 18 16 Respiratory Effort Respiratory Pattern Blood Pressure 110/85 H 91/66 98/71 Blood Pressure [Lying] Blood Pressure [Sitting (for 1 minute prior to obtaining)] Blood Pressure [Standing (for 1 minute prior to obtaining)] Blood Pressure Mean 93 74 80 Blood Pressure Mean [Lying] Blood Pressure Mean [Sitting (for 1 minute prior to obtaining)] Blood Pressure Mean [Standing (for 1 minute prior to obtaining)] Pulse Ox 100 97 100 Oxygen Delivery Method Room Air Room Air Room Air 05/08/25 23:30 05/09/25 00:00 05/09/25 00:23 Temperature Temperature Source Pulse Rate 88 95 Pulse Rate [Lying] Pulse Rate [Sitting (for 1 minute prior to obtaining)] 107 H Pulse Rate [Standing (for 1 minute prior to obtaining)] 97 Respiratory Rate 16 17 Respiratory Effort Respiratory Pattern Blood Pressure 105/71 106/80 Blood Pressure [Lying] Blood Pressure [Sitting (for 1 minute prior to obtaining)] 84/67 L Blood Pressure [Standing (for 1 minute prior to obtaining)] 104/80 Blood Pressure Mean 82 88 Blood Pressure Mean [Lying] Blood Pressure Mean [Sitting (for 1 minute prior to obtaining)] 72 Blood Pressure Mean [Standing (for 1 minute prior to obtaining)] 88 Pulse Ox 100 98 Oxygen Delivery Method Room Air Room Air Positive well nourished and well developed General Appearance ED: well developed and NAD HEENT Reports moist mucous membranes normocephalic and atraumatic Eyes PERRL and EOMs intact bilaterally Neck full ROM and supple Resp normal respiratory effort and clear to auscultation bilaterally Cardio regular rate, regular rhythm and no murmurs GI non-tender and non-distended Auscultation: normoactive bowel sounds Palpation: soft Back/Spine no CVA tenderness General Back: other FROM Extremity normal to inspection General Extremety ED: Negative for edema, pulses abnormal or tenderness General Extremity: Negative for edema or pulses abnormal Neuro oriented x3, CN's II-XII intact bilaterally and no sensory deficits noted Sensorium / Orientation: awake and alert Motor Exam: strength 5/5 throughout Skin no rashes or lesions noted and no wounds MDM MDM MDM Narrative Medical decision making narrative: Patient was syncopal with prodromal lightheadedness only, and his labs are consistent with dehydration and even before knowing that we gave him a liter of IV fluids and checked orthostatics and indeed he was orthostatic still so he was given some more IV fluids, after 2 L he still is orthostatic with his blood pressure going down quite a bit. He did not feel near syncopal but he just told us that he did not feel well. 2 sequential troponins are both within normal limits, the second 1 going down for delta of -1, ruling out acute coronary syndrome and his D-dimer is normal ruling out pulmonary embolus. He has a mild nonspecific leukocytosis with no leftward shift or bandemia. His EKG is normal except for mild tachycardia, I think all of this is mild dehydration. Going to give him a third liter, if he is feeling okay after that, plan is for discharge and close outpatient follow-up. He does not appear to be on any diuretics that we need to discontinue. Lab Data Attestation: I reviewed the patient's lab results. Labs: Laboratory Results - last 24 hr 05/08/25 05/08/25 05/08/25 20:38 21:34 23:00 WBC 13.3 H RBC 5.03 Hgb 14.1 Hct 43.2 MCV 85.9 MCH 28.0 MCHC 32.6 RDW Std Deviation 40.3 RDW Coeff of Adrienne 13.0 Plt Count 215 MPV 13.0 H Immature Gran % (Auto) 0.500 Neut % (Auto) 59.2 Lymph % (Auto) 32.5 Keith % (Auto) 6.2 Eos % (Auto) 1.2 Baso % (Auto) 0.4 Absolute Neuts (auto) 7.9 H Absolute Lymphs (auto) 4.34 Nucleated RBC % 0 D-Dimer Quant (PE/DVT) Cancelled 0.27 Sodium 138 Potassium 4.8 Chloride 103 Carbon Dioxide 21.6 Anion Gap 13 BUN 27 H Creatinine 0.95 Estim Creat Clear Calc 106.17 Est GFR (MDRD) Non-Af 95 BUN/Creatinine Ratio 28.3 H Glucose 109 H Calcium 9.6 Troponin T High Sens 12 Troponin T Hi Sens 2 Hr 11 Rhythm Strip Rhythm Strip: Sinus Tach Rate: 103 Ectopy: None EKG Initial EKG: Attestation: I personally reviewed and interpreted this EKG as follows: Interpretation: No Acute Injury Pattern and Sinus Tachycardia (109) Comments: Nml axis & intervals; nml EKG other than mild tachycardia Discharge Plan Triage Chief Complaint: Syncope ED Provider: Jersey Hayes Dx/Rx/DC Orders Clinical Impression: Syncope due to orthostatic hypotension Instructions: ED Hypotension, Orthostatic Prescriptions: No Action omeprazole 40 mg capsule,delayed release(DR/EC) 40 mg PO DAILY gemfibrozil 600 MG tablet 600 mg PO BID Patient Comments: cholesterol vilazodone [Viibryd] 40 MG tablet 40 mg PO DAILY Patient Comments: antidepressant gabapentin 600 MG tablet 600 mg PO BID Patient Comments: anticonvulsant lamotrigine [Lamictal] 200 MG tablet 200 mg PO DAILY Patient Comments: convulsions dextroamphetamine-amphetamine 10 mg tablet 10 mg PO PRN PRN (Reason: ADHD) dextroamphetamine-amphetamine 30 mg capsule,extended release 24hr 30 mg PO PRN PRN (Reason: ADHD) cyanocobalamin (vitamin B-12) 1,000 mcg/mL solution 1,000 mcg IM QWEEK Scemblix 40 mg tablet 80 mg PO DAILY hydrocodone-acetaminophen 5-325 mg tablet 1 tab PO Q6H PRN (Reason: pain) oxybutynin chloride 15 mg tablet extended release 24hr 15 mg PO DAILY sildenafil [Viagra] 100 mg tablet 100 mg PO DAILY PRN (Reason: sexual activity) Rx Instructions: administer 30 minutes to 4 hours before activity aripiprazole [Abilify] 5 mg tablet 5 mg PO DAILY Trelegy Ellipta 100-62.5-25 mcg blister with device 1 ea INHALATION DAILY budesonide 3 mg capsule,delayed,extend.release 6 mg PO DAILY Qty: 30 2RF Linzess 290 mcg capsule 290 mcg PO DAILY Qty: 30 0RF Primary Care Provider: Noman Dean Referrals: Dean,Noman, DO [Primary Care Provider] - 3-5 Days if not improving Activity Restrictions/Additional Instructions: Make sure you drink plenty of fluids Print Language: [place]an Disposition Disposition: Home, Self Care
[2025-05-08 21:22] LABS: Absolute Lymphocyte Count 4.34 X10^3/uL (0.83-4.51); Absolute Neutrophil Count 7.9 X10^3/uL (2.0-7.7); Basophil# 0.05 X10^3/uL; Basophil% 0.4 % (0-1); Eosinophil# 0.16 X10^3/uL; Eosinophils% 1.2 % (0-5); Hematocrit 43.2 % (40-54); Hemoglobin 14.1 g/dL (13.0-16.5); Lymphocyte # 4.34 X10^3/ul (0.83-4.51); Lymphocyte % 32.5 % (19-41); Mean Corp Hgb Conc 32.6 g/dL (32-36); Mean Corpuscular Volume 85.9 fL (80-94); Monocyte# 0.83 X10^3/uL; Monocyte% 6.2 % (0-10); NRBC Flagged by Analyzer 0 % (0-5); Neutrophil # 7.89 X10^3/uL (2.7-7.7); Neutrophil % 59.2 % (47-70); Platelet Count 215 K/mm3 (150-450); RBC Distribution Width SD 40.3 fl (35.1-43.9); Red Blood Count 5.03 M/mm3 (4.6-6.2); White Blood Count 13.3 K/mm3 (4.4-11.0)
--- OUTSIDE RECORDS SUMMARY | 2025-05-08 21:37 | XMS RPT_ITS | CCD ---
Author Organization [facility] Inform ion Partnership [facility] Care Team Providers Care Investment Banking Analyst Name Role Phone Noman Dean DO Primary Care Provider JERSEY COLE Admitting Unavailable JERSEY COLE Attending Unavailable NOMAN DEAN Primary Care Unavailable TESTRAKE, SHYANN Admitting Unavailable TESTRAKE, SHYANN Attending Unavailable NOMAN DEAN Primary Care Unavailable JERSEY COLE Admitting Unavailable JERSEY COLE Attending Unavailable NOMAN DEAN Primary Care Unavailable Noman Dean DO Primary Care Provider Otoniel Heaton DO Unavailable Harriett Gregorio PA-C Unavailable Dr. Noman Dean Primary Care Provider Dr. Noman Dean Referring Provider Katarzyna BREAD WRAPPER OPERATOR, BREAD WRAPPER OPERATOR-C Rickey Arrieta Attending Provider Dr. Charly Parada Attending Provider [phone] FriendDr. Parks Other Provider [phone] Lucy RN, Ros Unavailable Unavailable Lucy RN, Ros Unavailable Unavailable Dr. Noman Dean Primary Care Provider Dr. Noman Dean Referring Provider Dr. Charly Parada Attending Provider [phone] Dr. Charly Parada Other Provider [phone] Noman Dean Primary Care Provider Dr. Noman Dean Referring Provider Dr. Charly Parada Attending Provider Dr. Charly Parada Other Provider Dr. Otoniel Heaton Referring Provider Dr. Otoniel Heaton Other Provider ASHISH Olsen Attending Provider Dean DO, Noman L Primary Care Provider Friend, Charly Attending Unavailable Dean, Noman Primary Care Unavailable Dean, Noman Referring Unavailable Friend, Charly Attending Unavailable Dean, Noman Referring Unavailable Dean, Noman Primary Care Unavailable Jade Olsen Attending Unavailable Otoniel Heaton Consulting Unavailable Otoniel Heaton Referring Unavailable Dean, Noman Primary Care Unavailable Friend, Charly Consulting Unavailable Friend, Charly Attending Unavailable Dean, Noman Referring Unavailable Dean, Noman Primary Care Unavailable Friend, Charly Attending Unavailable Dean, Noman Primary Care Unavailable Dean, Noman Referring Unavailable Friend, Charly Attending Unavailable Friend, Charly Referring Unavailable Dean, Noman Primary Care Unavailable MasciOtoniel Attending Unavailable MasciOtoniel Referring Unavailable Dean, Noman Primary Care Unavailable Prakash SET UP PERSON.TRIAL COURT JUSTICE, Maria Dolores Taylor Unavailable Beatriz SET UP PERSON.Edgar MAY Unavailable DEAN, NOMAN L Referring Unavailable DEAN, NOMAN L Primary Care Unavailable DEAN, NOMAN L Primary Care Unavailable MASCI, OTONIEL A Attending Unavailable DEAN, NOMAN L Primary Care Unavailable DEAN, NOMAN L Attending Unavailable DEAN, NOMAN L Primary Care Unavailable DEAN, NOMAN L Referring Unavailable DEAN, NOMAN L Primary Care Unavailable DEAN, NOMAN L Primary Care Unavailable HARRIETT GREGORIO M Attending Unavailable DEAN, NOMAN L Primary Care Unavailable MCKENNA GARCIA M Referring Unavailable DEAN, NOMAN L Primary Care Unavailable JOSEALYSSAMCKENNA M Attending Unavailable DEAN, NOMAN L Primary Care Unavailable MASCI, OTONIEL A Referring Unavailable DEAN, NOMAN L Primary Care Unavailable HARRIETT GREGORIO M Referring Unavailable DEAN, NOMAN L Primary Care Unavailable DEAN, NOMAN L Attending Unavailable DEAN, NOMAN L Primary Care Unavailable MASCI, OTONIEL A Referring Unavailable DEAN, NOMAN L Primary Care Unavailable NOMAN DEAN Attending Unavailable NOMAN DEAN Primary Care Unavailable ANABELA TREJO Attending Unavailable OTONIEL HEATON Referring Unavailable NOMAN DEAN Primary Care Unavailable JOSE MARIA DOMINGUEZ Referring Unavailable NOMAN DEAN Primary Care Unavailable JOSE MARIA DOMINGUEZ Attending Unavailable NOMAN DEAN Primary Care Unavailable NOMAN DEAN Attending Unavailable NOMAN DEAN Primary Care Unavailable Allergies Allergy Classification Reported Allergen(s) Allergy Type Date of Onset Reaction(s) Facility (20 sources) Aspirin; Translations: [ASPIRIN] Drug Allergy 3 GI Upset [facility] (20 sources) Penicillins; Translations: [PENICILLINS] Drug Allergy 5 [facility] (20 sources) Pollen; Translations: [POLLEN] Allergy to substance 4 [facility] (20 sources) topiramate; Translations: [TOPIRAMATE] Drug Allergy 2 Other: See Comments [facility] (1 source) ENVIROMENTAL Allergy to substance 5 Itching [facility] Work Phone: (20 sources) Penicillins Drug Allergy 5 [facility] (4 sources) Penicillins Allergy to substance 3 Rash [facility] (5 sources) Environmental Allergies: Uncoded; Translations: [Environmental Allergies: Uncoded] Allergy to substance 3 Itching [facility] (20 sources) Shellfish; Translations: [shellfish derived] Propensity to adverse reactions to drug 3 Unknown [facility] (1 source) Aspirin Drug Allergy 4 [facility] (1 source) Penicillins Drug allergy (disorder) 4 [facility] (1 source) topiramate Drug Allergy 4 [facility] Medications Current Medications Medication Drug Class(es) Dates Sig (Normalized) Sig (Original) acetaminophen 325 mg / HYDROcodone bitartrate 5 mg oral tablet (20 sources) Opioid Agonist Start: 05-25-2024 End: 05-14-2025 take 1 tablet by mouth twice daily as needed for pain HYDROcodone-aceta minophen (NORCO) 5-325 mg per tablet Indications: Multiple sclerosis (HCC) , Bilateral leg pain Take 1 tablet by mouth two times a day as needed for pain for up to 30 days. Patient should start on April 14, 2025. 60 tablet 04/14/2025 05/14/2025 Active Start: 01-07-2024 take 1 tablet by true th every six hours Hydrocodone-Acetaminophen Active 1 TABLE T PO EVERY 6 HOURS January 07, 2024 1:00am Start: 08-27-2023 End: 05-18-2024 take 1 tablet by mouth twice daily as needed for pain HYDROcodone-acetaminophen (NORCO) 5-325 mg per tablet Indications: Multiple sclerosis (HCC) , Bilateral leg pain Take 1 tablet by mouth two times a day as needed for pain for up to 30 days. Do not start before February 21, 2024. 60 tablet 02/21/2024 05/18/2024 Discontinued Start: 04-02-2023 End: 08-24-2023 take 1 tablet by mouth twice daily as needed for pain HYDROcodone-acetaminophen (NORCO) 5-325 mg per tablet Indications: Bilateral leg pain , Multiple sclerosis (HCC) Take 1 tablet by mouth twice daily as needed for pain for up to 30 days. 60 tablet 0 07/25/2023 Active Start: 10-10-2022 End: 03-28-2023 take 1 tablet by mouth twice daily as needed for pain HYDROcodone-acetaminophen (NORCO) 5-325 mg per tablet Indications: Bilateral leg pain , Multiple sclerosis (HCC) Take 1 tablet by mouth twice daily as needed for pain for up to 30 days. 60 tablet 0 02/24/2023 03/28/2023 Discontinued Start: 09-06-2022 End: 10-08-2022 HYDROcodone-acetaminophen (N ORCO) 5-325 mg per tablet Indications: Bilateral leg pain , Multiple sclerosis (HCC) Take 1 tablet by mouth twice daily as needed for pain for up to 30 days. Do not start before September 06, 2022. 60 tablet 0 09/06/2022 10/08/2022 Discontinued Start: 01-15-2022 End: 08-13-2022 take 1 tablet by mouth twice daily as needed for pain HYDROcodone-acetaminophen (NORCO) 5-325 mg per tablet Indications: Bilateral leg pain , Multiple sclerosis (HCC) Take 1 tablet by mouth twice daily as needed for pain for up to 30 days. 60 tablet 01/15/2022 02/14/2022 Discontinued Start: 01-18-2021 End: 02-13-2021 take 1 tablet by mouth twice daily as needed for pain HYDROcodone-acetaminophen (NORCO) 5-325 mg per tablet Indications: Bilateral leg pain , Multiple sclerosis (HCC) Take 1 tablet by mouth twice daily as needed for Pain for up to 30 days. 60 tablet 01/18/2021 02/13/2021 Discontinued Start: 09-20-2020 End: 10-19-2020 take 1 tablet by mouth twice daily as needed for pain HYDROcodone-acetaminophen (NORCO) 5-325 mg per tablet Indications: Bilateral leg pain , Multiple sclerosis (HCC) Take 1 tablet by mouth twice daily as needed for Pain for up to 30 days. Do not start before September 20, 2020. 60 tablet 09/20/2020 10/19/2020 Discontinued Comment on above: Take 1 tablet by true th twice daily as needed for pain for up to 30 days. Take 1 tablet by true th twice daily as needed for pain for up to 30 days. Do not start before September 06, 2022. Take 1 tablet by true th twice daily as needed for pain for up to 30 days. Do not start before April 02, 2023. Take 1 tablet by true th two times a day as needed for pain for up to 30 days. Take 1 tablet by true th two times a day as needed for pain for up to 30 days. Do not start before December 24, 2023. Take 1 tablet by true th two times a day as needed for pain for up to 30 days. Do not start before November 25, 2023. Take 1 tablet by true th two times a day as needed for pain for up to 30 days. Do not start before October 27, 2023. Take 1 tablet by true th two times a day as needed for pain for up to 30 days. Do not start before April 17, 2024. Take 1 tablet by true th two times a day as needed for pain for up to 30 days. Do not start before March 20, 2024. Take 1 tablet by true th two times a day as needed for pain for up to 30 days. Do not start before February 21, 2024. acetaminophen 325 mg / oxyCODONE hydrochloride 5 mg oral tablet (2 sources) Opioid Agonist Start: 05-04-20 take 1 tablet by mouth every six hours as needed Oxycodone-Acetaminophe n Active 1 TABLET PO EVERY 6 HOURS NEEDED May 04, 2015 12:34pm [id number] 200 actuat albuterol 0.09 mg/actuat metered dose inhaler (20 sources) beta2-Adrenergic Agonist Start: 11-21-20 End: 08-10-20 take 2 puff(s) by inhalation every four hours as needed for wheezing albuterol HFA (VENTOLIN HFA) 90 mcg/actuation inhaler Indications: Stage 2 moderate COPD by GOLD classification ([facility]) INHALE 2 PUFFS INSTRUCTED EVERY FOUR HOURS NEEDED FOR WHEEZING / SHORTNESS OF BREATH 18 g 11 08/10/2024 Active Start: 11-20-2022 take 2 puff(s) by in halation every four hours as needed for wheezing albuterol HFA (VENTOLIN HFA) 90 mcg/actuation inhaler Indications: Stage 2 moderate COPD by GOLD classification ([facility]) INHALE 2 PUFFS INSTRUCTED EVERY FOUR HOURS NEEDED FOR WHEEZING / SHORTNESS OF BREATH 18 g 11 11/20/2022 Active Start: 03-20-2020 End: 11-18-2022 take 2 puff(s) by inhalation every four hours as needed for wheezing albuterol HFA (VENTOLIN HFA) 90 mcg/actuation inhaler Indications: Stage 2 moderate COPD by GOLD classification ([facility]) INHALE 2 PUFFS INSTRUCTED EVERY FOUR HOURS NEEDED FOR WHEEZING / SHORTNESS OF BREATH 18 g 11 09/17/2021 04/12/2022 Discontinued Start: 05-03-2015 take 1 puff(s) by in halation every four hours as needed Albuterol Sulfate (Ventolin Hfa) 1 INHALER inhaler Active 2 PUFF INHALATION EVERY 4 HOURS NEEDED May 03, 2015 12:15am Start: 05-03-2015 take 1 puff(s) by in halation every four hours as needed Albuterol Sulfate (Ventolin Hfa) 1 INHALER inhaler Active 2 PUFF INHALATION EVERY 4 HOURS NEEDED May 02, 2015 11:00pm Start: 05-03-2015 take 1 puff(s) by in halation every four hours as needed Albuterol Sulfate (Ventolin Hfa) 1 INHALER inhaler Active 2 PUFF INHALATION EVERY 4 HOURS NEEDED May 03, 2015 12:00am Comment on above: INHALE 2 PUFFS IN STRUCTED EVERY FOUR HOURS NEEDED FOR WHEEZING / SHORTNESS OF BREATH amphetamine aspartate 2.5 mg / amphetamine sulfate 2.5 mg / dextroamphetamine saccharate 2.5 mg / dextroamphetamine sulfate 2.5 mg oral tablet (20 sources) Central Nervous System Stimulant Start: 01-14-20 End: 05-14-20 take 1 capsule by mouth once daily amphetamine-dextroam phetamine XR (ADDERALL XR) 30 mg capsule Indications: Attention or concentration deficit Take 1 capsule by mouth once daily for 30 days. Patient should start on April 14, 2025. 30 capsule 04/14/2025 05/14/2025 Active Start: 01-14-2025 End: 11-17-2024 take 1 capsule by mouth once daily amphetamine-dextroamphetamine XR (ADDERA LL XR) 30 mg capsule Indications: Attention or concentration deficit Take 1 capsule by mouth once daily for 30 days. Patient should start on January 14, 2025. 30 capsule 01/14/2025 11/17/2024 Discontinued Start: 12-17-2024 End: 02-16-2025 take 1 capsule by mouth once daily amphetamine-dextroamphetamine XR (ADDERA LL XR) 30 mg capsule Indications: Attention or concentration deficit Take 1 capsule by mouth once daily for 30 days. Patient should start on December 17, 2024. 30 capsule 12/17/2024 02/16/2025 Discontinued Start: 12-17-2024 End: 11-17-2024 take 1 capsule by mouth once daily amphetamine-dextroamphetamine XR (ADDERA LL XR) 30 mg capsule Indications: Attention or concentration deficit Take 1 capsule by mouth once daily for 30 days. Patient should start on December 17, 2024. 30 capsule 12/17/2024 11/17/2024 Discontinued Start: 11-17-2024 End: 02-16-2025 take 1 capsule by mouth once daily amphetamine-dextroamphetamine XR (ADDERA LL XR) 30 mg capsule Indications: Attention or concentration deficit Take 1 capsule by mouth once daily for 30 days. 30 capsule 11/17/2024 02/16/2025 Discontinued Start: 10-16-2024 End: 09-10-2024 take 1 capsule by mouth once daily amphetamine-dextroamphetamine XR (ADDERA LL XR) 30 mg capsule Indications: Attention or concentration deficit Take 1 capsule by mouth once daily for 30 days. Patient should start on October 16, 2024. 30 capsule 10/16/2024 09/10/2024 Discontinued (Duplicate Entry) Start: 09-17-2024 End: 09-10-2024 take 1 capsule by mouth once daily amphetamine-dextroamphetamine XR (ADDERA LL XR) 30 mg capsule Indications: Attention or concentration deficit Take 1 capsule by mouth once daily for 30 days. Patient should start on September 17, 2024. 30 capsule 09/17/2024 09/10/2024 Discontinued (Duplicate Entry) Start: 05-25-2024 End: 05-14-2025 take 1 tablet by mouth once daily as needed dextroamphetamine-amphetamine (ADDERALL) 10 mg tablet Indications: Attention or concentration deficit Take 1 tablet by mouth once daily for 30 days. In the afternoon as needed for concentration impairment Patient should start on April 14, 2025. 30 tablet 04/14/2025 05/14/2025 Active Start: 04-17-2024 End: 11-17-2024 take 1 capsule by mouth once daily amphetamine-dextroamphetamine XR (ADDERA LL XR) 30 mg capsule Indications: Attention or concentration deficit Take 1 capsule by mouth once daily for 30 days. Patient should start on August 20, 2024. 30 capsule 08/20/2024 11/17/2024 Discontinued Start: 04-17-2024 End: 03-26-2024 take 1 capsule by mouth once daily amphetamine-dextroamphetamine XR (ADDERA LL XR) 30 mg capsule Indications: Attention deficit disorder, unspecified hyperactivity presence , Attention deficit disorder, unspecified hyperactivity presence Take 1 capsule by mouth once daily for 30 days. Do not start before April 17, 2024. 30 capsule 0 04/17/2024 03/26/2024 Discontinued Start: 04-17-2024 End: 03-26-2024 take 1 tablet by mouth once daily as needed dextroamphetamine-amphetamine (ADDERALL) 10 mg tablet Indications: Attention deficit disorder, unspecified hyperactivity presence , Attention deficit disorder, unspecified hyperactivity presence Take 1 tablet by mouth once daily for 30 days. In the afternoon as needed for concentration impairment Do not start before April 17, 2024. 30 tablet 04/17/2024 03/26/2024 Discontinued Start: 04-17-2024 End: 03-26-2024 take 1 capsule by mouth once daily amphetamine-dextroamphetamine XR (ADDERA LL XR) 30 mg capsule Indications: Attention deficit disorder, unspecified hyperactivity presence , Attention deficit disorder, unspecified hyperactivity presence Take 1 capsule by mouth once daily for 30 days. Do not start before April 17, 2024. 30 capsule 04/17/2024 03/26/2024 Discontinued Start: 04-17-2024 End: 08-20-2024 take 1 capsule by mouth once daily amphetamine-dextroamphetamine XR (ADDERA LL XR) 30 mg capsule Indications: Attention deficit disorder, unspecified hyperactivity presence , Attention deficit disorder, unspecified hyperactivity presence Take 1 capsule by mouth once daily for 30 days. Do not start before July 21, 2024. 30 capsule 07/21/2024 08/20/2024 Active Start: 04-17-2024 End: 05-18-2024 take 1 tablet by mouth once daily as needed dextroamphetamine-amphetamine (ADDERALL) 10 mg tablet Indications: Attention deficit disorder, unspecified hyperactivity presence , Attention deficit disorder, unspecified hyperactivity presence Take 1 tablet by mouth once daily for 30 days. In the afternoon as needed for concentration impairment Do not start before April 17, 2024. 30 tablet 0 04/17/2024 05/18/2024 Discontinued Start: 04-17-2024 End: 03-26-2024 take 1 tablet by mouth once daily as needed dextroamphetamine-amphetamine (ADDERALL) 10 mg tablet Indications: Attention deficit disorder, unspecified hyperactivity presence , Attention deficit disorder, unspecified hyperactivity presence Take 1 tablet by mouth once daily for 30 days. In the afternoon as needed for concentration impairment Do not start before April 17, 2024. 30 tablet 0 04/17/2024 03/26/2024 Discontinued Start: 10-10-2022 End: 05-18-2024 take 1 tablet by mouth once daily as needed dextroamphetamine-amphetamine (ADDERALL) 10 mg tablet Indications: Attention deficit disorder, unspecified hyperactivity presence , Attention deficit disorder, unspecified hyperactivity presence Take 1 tablet by mouth once daily for 30 days. In the afternoon as needed for concentration impairment Do not start before February 21, 2024. 30 tablet 02/21/2024 02/24/2024 Discontinued Start: 10-10-2022 End: 05-18-2024 take 1 capsule by mouth once daily amphetamine-dextroamphetamine XR (ADDERA LL XR) 30 mg capsule Indications: Attention deficit disorder, unspecified hyperactivity presence , Attention deficit disorder, unspecified hyperactivity presence Take 1 capsule by mouth once daily for 30 days. Do not start before February 21, 2024. 30 capsule 02/21/2024 02/24/2024 Discontinued Start: 09-06-2022 End: 10-08-2022 dextroamphetamine-amphetamin e (ADDERALL) 10 mg tablet Indications: Attention deficit disorder, unspecified hyperactivity presence Take 1 tablet by mouth once daily for 30 days. In the afternoon as needed for concentration impairment Do not start before September 06, 2022. 30 tablet 0 09/06/2022 10/08/2022 Discontinued Start: 09-06-2022 End: 10-08-2022 take 1 capsule by mouth once daily, then take 7 capsules by mouth every twenty-four hours amphetamine-dextroamphetamine XR (ADDERA LL XR) 30 mg 24 hr capsule Indications: Attention deficit disorder, unspecified hyperactivity presence Take 1 capsule by mouth once daily for 30 days. Do not start before September 06, 2022. 30 capsule 0 09/06/2022 10/08/2022 Discontinued Start: 05-15-2022 End: 08-13-2022 take 1 capsule by mouth once daily amphetamine-dextroamphetamine XR (ADDERA LL XR) 30 mg 24 hr capsule Indications: Attention deficit disorder, unspecified hyperactivity presence Take 1 capsule by mouth once daily for 30 days. 30 capsule 0 08/08/2022 08/13/2022 Discontinued Start: 05-13-2022 End: 08-13-2022 take 1 tablet by mouth once daily as needed dextroamphetamine-amphetamine (ADDERALL) 10 mg tablet Indications: Attention deficit disorder, unspecified hyperactivity presence Take 1 tablet by mouth once daily for 30 days. In the afternoon as needed for concentration impairment 30 tablet 0 08/08/2022 08/13/2022 Discontinued Start: 01-15-2022 End: 05-12-2022 take 1 capsule by mouth once daily amphetamine-dextroamphetamine XR (ADDERA LL XR) 30 mg 24 hr capsule Indications: Attention deficit disorder, unspecified hyperactivity presence Take 1 capsule by mouth once daily for 30 days. 30 capsule 01/15/2022 02/14/2022 Discontinued Start: 01-18-2021 End: 02-13-2021 take 1 capsule by mouth once daily amphetamine-dextroamphetamine XR (ADDERA LL XR) 30 mg 24 hr capsule Indications: Attention deficit disorder, unspecified hyperactivity presence Take 1 capsule by mouth once daily for 30 days. 30 capsule 01/18/2021 02/13/2021 Discontinued Start: 09-20-2020 End: 10-19-2020 take 1 capsule by mouth once daily amphetamine-dextroamphetamine XR (ADDERA LL XR) 30 mg 24 hr capsule Indications: Attention deficit disorder, unspecified hyperactivity presence Take 1 capsule by mouth once daily for 30 days. Do not start before September 20, 2020. 30 capsule 09/20/2020 10/19/2020 Discontinued Start: 05-01-2015 take 20 mg by mouth once daily Dextroamphetamine-Amphetamine Active 20 MG PO DAILY May 01, 2015 5:51pm Comment on above: Take 1 capsule by mo uth once daily for 30 days. Take 1 tablet by true th once daily for 30 days. In the afternoon as needed for concentration impairment Take 1 capsule by mo uth once daily for 30 days. Do not start before September 06, 2022. Take 1 tablet by true th once daily for 30 days. In the afternoon as needed for concentration impairment Do not start before September 06, 2022. Take 1 capsule by mo uth once daily for 30 days. Do not start before November 25, 2023. Take 1 tablet by true th once daily for 30 days. In the afternoon as needed for concentration impairment Do not start before November 25, 2023. Take 1 capsule by mo uth once daily for 30 days. Do not start before October 27, 2023. Take 1 tablet by true th once daily for 30 days. In the afternoon as needed for concentration impairment Do not start before October 27, 2023. Take 1 tablet by true th once daily for 30 days. In the afternoon as needed for concentration impairment Do not start before December 24, 2023. Take 1 capsule by mo uth once daily for 30 days. Do not start before December 24, 2023. Take 1 capsule by mo uth once daily for 30 days. Do not start before April 17, 2024. Take 1 capsule by mo uth once daily for 30 days. Do not start before March 20, 2024. Take 1 capsule by [facility] once daily for 30 days. Do not start before February 21, 2024. Take 1 tablet by [facility] once daily for 30 days. In the afternoon as needed for concentration impairment Do not start before April 17, 2024. Take 1 tablet by [facility] once daily for 30 days. In the afternoon as needed for concentration impairment Do not start before March 20, 2024. Take 1 tablet by [facility] once daily for 30 days. In the afternoon as needed for concentration impairment Do not start before February 21, 2024. ARIPiprazole 20 mg oral tablet (20 sources) Atypical Antipsychotic Start: take 20 mg by mouth once daily Aripiprazole Active 20 MG PO DAILY January 07, 2024 1:00am Start: 11-08-2014 take 1 tablet by true once daily ARIPiprazole (ABILIFY) 5 mg tablet Take 1 tablet by mouth once daily. 0 11/08/2014 Active Comment on above: Take 1 tablet by [facility] once daily. Asciminib (3 sources) Start: 01-07-2024 Asciminib (Asc iminib 40 Mg Tablet) 40 mg tablet Active 80 MG PO DAILY January 07, 2024 1:00am Start: 01-07-2024 Asciminib (Asc iminib 40 Mg Tablet) 40 mg tablet Active 80 MG PO DAILY January 07, 2024 12:00am asciminib (SCEMBLIX) 40 mg tablet (20 sources) Start: 10-20-2024 take 2 tablets by mouth once daily asciminib (SCEMBLIX) 40 mg tablet Indications: CML (chronic myeloid leukemia) (HCC) Take 2 tablets (80 mg) by mouth once daily on an empty stomach. Avoid food 2 hours prior and 1 hour after taking 60 tablet 5 11/19/2024 10:52 AM EST 10/20/2024 Active Start: 10-20-2024 take 2 tablets by mo [facility] once daily asciminib (SCEMBLIX) 40 mg tablet Indications: CML (chronic myeloid leukemia) (HCC) Take 2 tablets (80 mg) by mouth once daily on an empty stomach. Avoid food 2 hours prior and 1 hour after taking 60 tablet 5 10/20/2024 Active Start: 04-21-2024 End: 10-20-2024 take 2 tablets by mouth once daily asciminib (SCEMBLIX) 40 mg tablet Indications: CML (chronic myeloid leukemia) (HCC) Take 2 tablets (80 mg) by mouth once daily on an empty stomach. Avoid food 2 hours prior and 1 hour after taking 60 tablet 5 04/21/2024 10/20/2024 Discontinued Start: 04-21-2024 take 2 tablets by mo uth once daily asciminib (SCEMBLIX) 40 mg tablet Indications: CML (chronic myeloid leukemia) (HCC) Take 2 tablets (80 mg) by mouth once daily on an empty stomach. Avoid food 2 hours prior and 1 hour after taking 60 tablet 5 04/21/2024 Active Start: 11-04-2023 End: 04-21-2024 take 2 tablets by mouth once daily asciminib (SCEMBLIX) 40 mg tablet Take 2 tablets (80 mg) by mouth once daily on an empty stomach. Avoid food 2 hours prior and 1 hour after taking 60 tablet 5 11/04/2023 04/21/2024 Discontinued Start: 11-04-2023 take 2 tablets by mo uth once daily asciminib (SCEMBLIX) 40 mg tablet Take 2 tablets (80 mg) by mouth once daily on an empty stomach. Avoid food 2 hours prior and 1 hour after taking 60 tablet 5 11/04/2023 Active Start: 05-25-2023 take 2 tablets by mo uth once daily asciminib (SCEMBLIX) 40 mg tablet Take 2 tablets (80 mg) by mouth once daily on an empty stomach. Avoid food 2 hours prior and 1 hour after taking 60 tablet 5 05/25/2023 Active Start: 05-25-2023 take 2 tablets by mo uth once daily asciminib (SCEMBLIX) 40 mg tablet Take 2 tablets (80 mg) by mouth once daily. 60 tablet 5 05/25/2023 Active Comment on above: Take 2 tablets (80 m g) by mouth once daily. Take 2 tablets (80 m g) by mouth once daily on an empty stomach. Avoid food 2 hours prior and 1 hour after taking atenolol 25 mg oral tablet (20 sources) beta-Adrenergic Zeny Start: 12-08-2023 End: 02-16-2025 take 1 tablet by mouth once daily atenolol (TENORMIN) 25 mg tablet Take 1 tablet by mouth once daily. 90 tablet 1 02/16/2025 Active Start: 07-15-2014 End: 06-24-2023 take 1 tablet by mouth once daily atenolol (TENORMIN) 25 mg tablet Take 1 tablet by mouth once daily. 90 tablet 1 01/30/2021 07/17/2021 Discontinued Comment on above: Take 1 tablet by true th once daily. take 1 tablet by true th once daily benoxinate hydrochloride 4 mg/ml / fluorescein sodium 2.5 mg/ml ophthalmic solution (1 source) Diagnostic Dye Start: End: fluorescein-benoxin ate 0.25-0.4 % 1 Drop (FLURESS) budesonide 3 mg delayed release oral capsule (20 sources) Corticosteroid take 1 capsule by mouth once daily, then take 3 mg by mouth every twenty-four hours budesonide, enteric coated (ENTOCORT EC) 3 mg 24 hr capsule Take 6 mg by mouth once daily. Active cholecalciferol 0.05 mg oral capsule (20 sources) Vitamin D Start: take 1 capsule by mouth once daily Cholecalciferol, Vitamin D3, (VITAMIN D-3) 50 mcg (2,000 unit) cap Take 1 capsule by mouth once daily. 30 capsule 5 08/11/2020 Active Comment on above: Take 1 capsule by mo [facility] once daily. diclofenac sodium 0.01 mg/mg topical gel (20 sources) Nonsteroidal Anti-inflammatory Drug Start: 023 End: 024 apply 2 g topically four times daily diclofenac (VOLTAREN) 1 % topical gel Indications: Bilateral elbow joint pain , Lateral epicondylitis of both elbows Apply 2 g to affected area four times daily. 100 g 03/25/2024 Active Start: 05-06-2022 End: 08-07-2022 apply 2 g topically three times daily diclofenac (VOLTAREN) 1 % topical gel Indications: Bilateral elbow joint pain , Lateral epicondylitis of both elbows apply 2 grams TO AFFTECTED AREA three times a day 100 g 0 08/07/2022 Active Start: 01-22-2022 End: 05-04-2022 diclofenac (VOLTAREN ARTHRIT IS PAIN) 1 % topical gel Indications: Bilateral elbow joint pain , Lateral epicondylitis of both elbows Apply 2 g to affected area three times daily. 100 g 01/22/2022 03/12/2022 Discontinued Comment on above: Apply 2 g to affecte d area three times daily. apply 2 grams TO AFF TECTED AREA three times a day Apply 2 g to affecte d area four times daily. dicyclomine hydrochloride 20 mg oral tablet (20 sources) Anticholinergic Start: 03-13-20 21 take 1 tablet by mouth three times daily dicyclomine (BENTYL) 20 mg tablet Indications: Reactive gastropathy , Abdominal pain, unspecified abdominal location Take 1 tablet by mouth three times daily. 120 tablet 2 03/13/2021 Active Start: 01-19-2021 End: 02-14-2021 take 1 capsule by mouth once daily in the evening dicyclomine (BENTYL) 10 mg capsule Indications: Functional bowel disorder Take 1 capsule by mouth DAILY AT 6 PM. 30 capsule 1 01/19/2021 02/14/2021 Discontinued Comment on above: Take 1 tablet by true three times daily. 30 actuat fluticasone furoate 0.1 mg/actuat / umeclidinium 0.0625 mg/actuat / vilanterol 0.025 mg/actuat dry powder inhaler (20 sources) Anticholinergic, Corticosteroid, beta2-Adrenergic Agonist Start: 08-25-20 24 take 1 puff(s) by inhalation once daily fluticasone-umeclidin- vilanter (TRELEGY ELLIPTA) 100-62.5-25 mcg inhalation powder Indications: Stage 2 moderate COPD by GOLD classification ([facility]) Inhale 1 Puff as instructed once daily. 1 Each 08/25/2024 Active gabapentin 600 mg oral tablet (20 sources) Anti-epileptic Agent Start: 08-25-20 End: 08-15-20 take 1 tablet by mouth three times daily gabapentin (NEURONTIN) 600 mg tablet Indications: Multiple sclerosis (HCC) , Multiple sclerosis, relapsing-remitting (HCC) , RLS (restless legs syndrome) , Malaise and fatigue , Imbalance Take 1 tablet by mouth three times a day for 180 days. 90 tablet 3 02/16/2025 08/15/2025 Active Start: 06-24-2023 End: 08-23-2023 take 1 tablet by mouth three times daily gabapentin (NEURONTIN) 600 mg tablet Indications: Multiple sclerosis (HCC) , Multiple sclerosis, relapsing-remitting (HCC) , RLS (restless legs syndrome) , Malaise and fatigue , Imbalance Take 1 tablet by mouth three times daily for 60 days. 90 tablet 1 06/24/2023 08/23/2023 Active Start: 05-03-2015 End: 06-01-2023 take 1 tablet by mouth three times daily gabapentin (NEURONTIN) 600 mg tablet Indications: Multiple sclerosis (HCC) , Multiple sclerosis, relapsing-remitting (HCC) , RLS (restless legs syndrome) , Malaise and fatigue , Imbalance Take 1 tablet by mouth three times daily for 30 days. 90 tablet 5 11/30/2020 05/18/2021 Discontinued Start: 05-03-2015 take 600 mg by mouth twice daily Gabapentin Active 600 MG PO TWICE A DAY May 03, 2015 12:00am Start: 05-01-2015 take 300 mg by mouth three times daily Gabapentin Active 300 MG PO THREE TIMES A DAY May 01, 2015 5:51pm Comment on above: TAKE 1 TABLET BY TRUE TH THREE TIMES A DAY Take 1 tablet by true th three times daily for 60 days. Take 1 tablet by true th three times daily for 90 days. Take 1 tablet by true th three times a day for 90 days. Take 1 tablet by true th three times a day for 180 days. gemfibrozil 600 mg oral tablet (20 sources) Peroxisome Proliferator Receptor alpha Agonist Start: 4 End: take 1 tablet by mouth twice daily gemfibrozil (LOPID) 600 mg tablet Take 1 tablet by mouth two times a day. 90 tablet 1 02/16/2025 Active Comment on above: Take 1 tablet by true th twice daily. Take 1 tablet by true th two times a day. ammonium lactate 120 mg/ml topical lotion (7 sources) Start: 5 Ammonium Lactate (Amlactin) 57 GM lotion Active 1 APPLIC TP NEEDED May 03, 2015 12:00am Start: 09-05-2014 End: 12-28-2021 ammonium lactate (LAC-HYDRIN ) 12 % lotion Indications: Dry skin Apply 1 application to affected area as needed for Dry Skin. 1 Bottle 5 09/05/2014 12/28/2021 Discontinued (Course of therapy completed) lactobacillus rhamnosus gg [id number] unt oral capsule (20 sources) Start: 07-23-2018 take 1 capsule by mouth once daily lactobacillus rhamnosus (CULTURELLE) 15 billion cell capsule Take 1 capsule by mouth once daily. 14 capsule 07/23/2018 Active Comment on above: Take 1 capsule by mo [facility] once daily. lamoTRIgine 200 mg oral tablet (20 sources) Mood Stabilizer, Anti-epileptic Agent Start: 04-11-2015 take 1 tablet by mouth once daily lamoTRIgine (LAMICTAL) 200 mg tablet Take 1 tablet by mouth once daily. 04/11/2015 Active Comment on above: Take 1 tablet by [facility] once daily. linaclotide 0.29 mg oral capsule (20 sources) Guanylate Cyclase-C Agonist Start: 06-02-2023 End: 11-07-2023 take 1 capsule by mouth once daily Linaclotide (Linzess) 290 mcg capsule Active 290 MCG PO DAILY November 07, 2023 3:32pm Start: 09-09-2022 End: 09-01-2024 take 1 capsule by mouth once daily in the morning linaCLOtide (LINZESS) 72 mcg capsule Indications: Chronic idiopathic constipation take 1 capsule by mouth every morning ON AN EMPTY STOMACH 30 MINUTES before EATING ANYTHING -- SWALLOW WHOLE; DO NOT CRUSH OR CHEW 30 capsule 5 03/06/2023 09/01/2024 Discontinued Start: 02-28-2022 End: 09-07-2022 linaCLOtide (LINZESS) 72 mcg capsule Indications: Chronic idiopathic constipation Take first thing in the morning, 30 minutes before eating anything.Swallow whole; DO NOT crush or chew. 30 capsule 5 02/28/2022 09/07/2022 Discontinued Start: 08-21-2021 End: 02-25-2022 linaCLOtide (LINZESS) 72 mcg capsule Indications: Chronic idiopathic constipation Take first thing in the morning, 30 minutes before eating anything.Swallow whole; DO NOT crush or chew. 30 capsule 5 08/21/2021 02/25/2022 Discontinued Start: 01-25-2021 End: 04-18-2021 linaCLOtide (LINZESS) 72 mcg capsule Indications: Chronic idiopathic constipation Take first thing in the morning, 30 minutes before eating anything.Swallow whole; DO NOT crush or chew. 30 capsule 2 01/25/2021 04/18/2021 Discontinued Comment on above: Take first thing in the morning, 30 minutes before eating anything.Swallow whole; DO NOT crush or chew. take 1 capsule by mo ut every morning ON AN EMPTY STOMACH 30 MINUTES before EATING ANYTHING -- SWALLOW WHOLE; DO NOT CRUSH OR CHEW Take 290 mcg by mout h once daily. omeprazole 40 mg delayed release oral capsule (20 sources) Proton Pump Inhibitor Start: 11-17-20 End: 09-06-20 take 1 capsule by mouth once daily omeprazole (PRILOSEC) 40 mg capsule Indications: Hypercalcemia , CML (chronic myelocytic leukemia) (HCC) Take 1 capsule by mouth once daily. 90 capsule 4 09/06/2024 Active Start: 06-13-2022 End: 06-17-2023 take 1 capsule by mouth once daily omeprazole (PRILOSEC) 40 mg capsule Indications: Hypercalcemia , CML (chronic myelocytic leukemia) (HCC) take 1 capsule by mouth once daily 30 capsule 4 11/17/2023 Active Start: 02-21-2022 End: 06-11-2022 take 1 capsule by mouth once daily omeprazole (PRILOSEC) 40 mg capsule Take 1 capsule by mouth once daily. 30 capsule 3 02/21/2022 06/11/2022 Discontinued Start: 12-25-2021 End: 02-18-2022 take 2 capsules by mouth once daily omeprazole (PRILOSEC) 20 mg capsule Indications: Nausea , Abdominal pain, unspecified abdominal location , Early satiety Take 2 capsules by mouth once daily. 60 capsule 1 12/25/2021 02/18/2022 Discontinued Start: 01-01-2021 End: 03-12-2021 take 1 capsule by mouth once daily omeprazole (PRILOSEC) 40 mg capsule Take 1 capsule by mouth once daily. 30 capsule 2 01/01/2021 03/12/2021 Discontinued Comment on above: Take 1 capsule by mo ut once daily. take 1 capsule by mo ut once daily 24 hr oxybutynin chloride 15 mg extended release oral tablet (20 sources) Cholinergic Muscarinic Antagonist Start: 11-21-2023 End: 02-16-2025 take 1 tablet by mouth once daily oxybutynin ER (DITROPAN XL) 15 mg 24 hr Extended Rel Tab Take 1 tablet by mouth once daily. 28 tablet 5 02/16/2025 Active Start: 07-15-2014 End: 06-24-2023 take 1 tablet by mouth once daily oxybutynin ER (DITROPAN XL) 15 mg 24 hr Extended Rel Tab Take 1 tablet by mouth once daily. 28 tablet 5 10/07/2020 03/28/2021 Discontinued Comment on above: take 1 tablet by true th once daily Take 1 tablet by true th once daily. phenylephrine hydrochloride 25 mg/ml ophthalmic solution (1 source) alpha-1 Adrenergic Agonist Start: 07-25-2022 End: 07-26-2022 PHENYLephrine 2.5 % 1 Drop (AK-DILATE, IZABEL-SYNEPHRINE) polyethylene glycol 400 4 mg/ml / propylene glycol 3 mg/ml ophthalmic solution (20 sources) Start: 01-07-2023 End: 02-11-2024 PEG 400-propylene glycol (SYSTANE ULTRA) 0.4-0.3 % ophthalmic solution Use 1 Drop in both eyes twice daily. 10 mL 3 01/07/2023 Active Start: 01-07-2023 End: 02-11-2024 PEG 400-propylene glycol (SY STANE ULTRA) 0.4-0.3 % ophthalmic solution Use 1 Drop in both eyes twice daily. 10 mL 3 01/07/2023 02/11/2024 Active Comment on above: Use 1 Drop in both e yes twice daily. proparacaine hydrochloride 5 mg/ml ophthalmic solution (1 source) Local Anesthetic Start: End: proparacaine 0.5 % 1 Drop (ALCAINE) Saliva Stimulant Comb. No.3 (Biotene Moisturizing Mouth) 44.3 ML Burns (1 source) Start: 015 take 44.3 mL by mouth four times daily as needed Saliva Stimulant Comb. No.3 (Biotene Moisturizing Mouth) 44.3 ML Burns Active 5 ML MM 4 TIMES DAILY NEEDED May 03, 2015 12:15am sildenafil 100 mg oral tablet (20 sources) Phosphodiesterase 5 Inhibitor Start: 024 take 1 tablet by mouth once daily as needed sildenafil (VIAGRA) 100 mg tablet Indications: ED (erectile dysfunction) of organic origin Take 1 tablet by mouth once daily as needed. Generic okay 20 tablet 2 02/04/2024 Active Comment on above: Take 1 tablet by true th once daily as needed. Generic okay sucralfate 1000 mg oral tablet (20 sources) Aluminum Complex Start: Sucralfate Active 1 GM PO before meals 90 February 03, 2024 1:00am take one hour before meals three times a day for 30 days then two times a day for and additional thirty days Start: 01-18-2022 End: 06-23-2023 take 1 tablet by mouth three times daily sucralfate (CARAFATE) 1 gram tablet Take 1 tablet by mouth three times daily. 90 tablet 01/18/2022 06/23/2023 Discontinued Comment on above: Take 1 tablet by true three times daily. tropicamide 10 mg/ml ophthalmic solution (1 source) Anticholinergic Start: 2021 End: 2021 tropicamide 1 % 1 Drop (MYDRIACYL) vilazodone hydrochloride 40 mg oral tablet (20 sources) Start: 2013 take 1 tablet by mouth once daily Vilazodone (Viibryd) 40 MG tablet Active 40 MG PO DAILY July 15, 2014 12:00am Comment on above: Take 40 mg by mouth once daily. vitamin b12 1 mg/ml injectable solution (20 sources) Vitamin B12 Start: 2023 inject 1000 ug by intramuscular injection every week Cyanocobalamin (Vitamin B-12) Active 1000 MCG IM EVERY WEEK January 07, 2024 1:00am Start: 11-07-2023 inject 1 mL by intra muscular injection every week, then inject 1 mL by intramuscular injection every other week, then inject 1 mL by intramuscular injection every month cyanocobalamin 1,000 mcg/mL Indications: Vitamin B12 deficiency Inject 1 ml IM once a week x 4 weeks then 1 ml IM every other week for 8 weeks then 1 ml IM once a month 10 mL 3 11/07/2023 Active Start: 11-05-2023 inject 1 mL by intra muscular injection every week, then inject 1 mL by intramuscular injection every other week, then inject 1 mL by intramuscular injection every month cyanocobalamin 1,000 mcg/mL Indications: Vitamin B12 deficiency Inject 1 ml IM once a week x 4 weeks then 1 ml IM every other week for 8 weeks then 1 ml IM once a month 10 mL 3 11/05/2023 Active Comment on above: Inject 1 ml IM once a week x 4 weeks then 1 ml IM every other week for 8 weeks then 1 ml IM once a month Completed/Discontinued Medications Medication Drug Class(es) Dates Sig (Normalized) Sig (Original) betamethasone 3 mg/ml / betamethasone acetate 3 mg/ml injectable suspension (1 source) Corticosteroid Start: 04-04-2022 End: 04-04-2022 betamethasone acetate-betamethason e sodium phosphate 3 mg injection (CELESTONE) Start: 04-04-2022 End: 04-04-2022 betamethasone acetate-betame thasone sodium phosphate 3 mg injection (CELESTONE) clindamycin 10 mg/ml topical solution (3 sources) Lincosamide Antibacterial Start: 06-18-2016 End: 06-27-2021 clindamycin (CLEOCIN) 1 % external solution Indications: Acne vulgaris Apply 1 application to affected area twice daily as needed (acne). 60 mL 3 06/18/2016 06/27/2021 Discontinued (Course of therapy completed) Start: 05-04-2015 take 300 mg by mouth every six hours Clindamycin Hcl Active 300 MG PO EVERY 6 HOURS 40 May 04, 2015 12:35pm cyclobenzaprine hydrochloride 5 mg oral tablet (1 source) Muscle Relaxant Start: 02-13-2021 End: 06-27-2021 take 1 tablet by mouth twice daily as needed for muscle spasms cyclobenzaprine (FLEXERIL) 5 mg tablet Indications: Neck pain Take 1 tablet by mouth twice daily as needed for Muscle Spasm. 30 tablet 02/13/2021 06/27/2021 Discontinued (Course of therapy completed) dasatinib 80 mg oral tablet (20 sources) Kinase Inhibitor Start: 01-17-2022 End: 03-24-2023 take 1 tablet by mouth once daily dasatinib (SPRYCEL) 80 mg tablet Indications: CML (chronic myelocytic leukemia) (HCC) Take 1 tablet (80mg) by mouth once daily. 30 tablet 2 01/17/2022 04/04/2022 Discontinued Start: 08-22-2020 End: 03-07-2021 take 1 tablet by mouth once daily dasatinib (SPRYCEL) 80 mg tablet Indications: CML (chronic myelocytic leukemia) (HCC) TAKE 1 TABLET (80 MG) BY MOUTH ONCE DAILY 30 tablet 02/06/2021 03/07/2021 Discontinued Comment on above: Take 1 tablet (80mg) by mouth once daily. dimethyl fumarate 240 mg delayed release oral capsule (9 sources) Start: End: take 1 capsule by mouth twice daily dimethyl fumarate (TECFIDERA) [address] Indications: Multiple sclerosis (HCC) Take 1 capsule by mouth twice daily. 60 capsule 6 01/05/2021 07/30/2021 Discontinued doxycycline hyclate 100 mg oral tablet (1 source) Tetracycline-clas s Drug Start: End: take 1 tablet by mouth twice daily doxycycline (VIBRA-TABS) 100 mg tablet Indications: Cellulitis of right lower extremity Take 1 tablet by mouth twice daily for 10 days. 20 tablet 0 02/13/2022 02/23/2022 Comment on above: [facility] ergocalciferol 1.25 mg oral capsule (20 sources) Provitamin D2 Compound Start: End: take 1 capsule by mouth every week ergocalciferol 50,000 unit capsule (VITAMIN D2, DRISDOL) Take 1 capsule by mouth one time a week. 8 capsule 0 02/15/2022 05/14/2022 Discontinued Comment on above: Take 1 capsule by mo [facility] one time a week. esomeprazole 40 mg delayed release oral capsule (5 sources) Proton Pump Inhibitor Start: End: take 1 capsule by mouth once daily Esomeprazole Magnesium (Nexium) 40 MG capsule Discontinued 40 MG PO DAILY July 15, 2014 12:00am January 03, 2023 1:08pm imatinib 400 mg oral tablet (5 sources) Kinase Inhibitor Start: End: take 1 tablet by mouth once daily Imatinib (Gleevec) 400 MG tablet Discontinued 400 MG PO DAILY May 03, 2015 12:00am January 03, 2023 1:07pm iv contrast (will be provided with radiology test) (12 sources) Start: End: inject 1 dose intravenously once iv contrast (will be provided with radiology test) Indications: Multiple sclerosis (HCC) MRI Brain Inject, intravenously, once for 1 dose.No IV access, insert saline lock prior to beginning of sedation, infusion, injection of imaging exam.Discontinue saline lock post exam. If Pt. has a central line or IVAD, may access for administration according to line specific nursing protocol.Once exam is complete flush line and de-access according to line specific nursing protocol in the MR contrast administration guidelines link 1 Each 06/30/2024 09/01/2024 Discontinued (Other) Start: 06-30-2024 inject 1 dose intravenously on ce iv contrast (will be provided with radiology test) Indications: Multiple sclerosis (HCC) MRI Brain Inject, intravenously, once for 1 dose.No IV access, insert saline lock prior to beginning of sedation, infusion, injection of imaging exam.Discontinue saline lock post exam. If Pt. has a central line or IVAD, may access for administration according to line specific nursing protocol.Once exam is complete flush line and de-access according to line specific nursing protocol in the MR contrast administration guidelines link 1 Each 06/30/2024 Active Start: 06-30-2024 inject 1 dose intravenously on ce iv contrast (will be provided with radiology test) Indications: Multiple sclerosis (HCC) MRI Brain Inject, intravenously, once for 1 dose.No IV access, insert saline lock prior to beginning of sedation, infusion, injection of imaging exam.Discontinue saline lock post exam. If Pt. has a central line or IVAD, may access for administration according to line specific nursing protocol.Once exam is complete flush line and de-access according to line specific nursing protocol in the MR contrast administration guidelines link 1 Each 0 06/30/2024 Active ketoconazole 20 mg/ml medicated shampoo (7 sources) Azole Antifungal Start: 09-13-2020 End: 06-27-2021 ketoconazole (NIZORAL) 2 % shampoo APPLY TO AFFECTED AREA TWICE A WEEK. 120 mL 2 01/15/2021 06/27/2021 Discontinued (Course of therapy completed) Start: 05-03-2015 End: 01-03-2023 Ketoconazole (Nizoral) 120 M L shampoo Discontinued 120 ML TP EVERY WEEK May 03, 2015 12:00am January 03, 2023 1:07pm 10 ml lidocaine hydrochloride 10 mg/ml injection (1 source) Antiarrhythmic, Amide Local Anesthetic Start: 04-04-2022 End: 04-04-2022 lidocaine (PF) 10 mg/mL (1 %) 0.5 mL injection (XYLOCAINE) Start: 04-04-2022 End: 04-04-2022 lidocaine (PF) 10 mg/mL (1 % ) 0.5 mL injection (XYLOCAINE) meloxicam 15 mg oral tablet (6 sources) Nonsteroidal Anti-inflammatory Drug Start: 07-15-2014 End: 01-03-2023 take 1 tablet by mouth once daily meloxicam (MOBIC) 15 mg tablet Take 1 tablet by mouth once daily. 28 tablet 3 2020 10/06/2020 Discontinued mupirocin 0.02 mg/mg topical ointment (1 source) RNA Synthetase Inhibitor Antibacterial Start: 02-13-2022 End: 02-23-2022 mupirocin (BACTROBAN) 2 % ointment Indications: Cellulitis of right lower extremity Apply to affected area twice daily for 10 days. For right leg skin infection 30 g 0 02/13/2022 02/23/2022 Comment on above: Apply to affected ar ea twice daily for 10 days. For right leg skin infection naproxen 500 mg oral tablet (1 source) Nonsteroidal Anti-inflammatory Drug Start: 09-14-2019 End: 12-28-2020 take 1 tablet by mouth twice daily as needed for pain naproxen (NAPROSYN) 500 mg tablet Indications: Acute midline low back pain without sciatica Take 1 tablet by mouth twice daily as needed (for pain/inflammation) . Take with food. 30 tablet 09/14/2019 12/28/2020 Discontinued naratriptan 2.5 mg oral tablet (5 sources) Serotonin-1b and Serotonin-1d Receptor Agonist Start: 05-01-2015 End: 01-03-2023 Naratriptan (Amerge) 2.5 MG tablet Discontinued 2.5 MG PO NEEDED May 01, 2015 12:00am January 03, 2023 1:07pm nortriptyline 50 mg oral capsule (5 sources) Tricyclic Antidepressant Start: 07-15-2014 End: 01-03-2023 take 25-50 mg by mouth at bedtime Nortriptyline (Pamelor) 50 MG capsule Discontinued 25 - 50 MG PO AT BEDTIME July 15, 2014 12:00am January 03, 2023 1:07pm nystatin [id number] unt/ml oral suspension (5 sources) Polyene Antifungal Start: 05-03-2015 End: 01-03-2023 take 1 mL by mouth four times daily Nystatin Discontinued 5 ML PO 4 TIMES DAILY May 03, 2015 12:00am January 03, 2023 1:07pm perflutren lipid microspheres 1.3 mL in NaCl (PF) 0.9% 10 mL injection (DEFINITY) (20 sources) Start: 12-25-2022 End: 03-25-2024 perflutren lipid microspheres 1.3 mL in NaCl (PF) 0.9% 10 mL injection (DEFINITY) Start: 02-13-2022 End: 05-15-2023 perflutren lipid microsphere s 1.3 mL in NaCl (PF) 0.9% 10 mL injection (DEFINITY) polyethylene glycol 3350 66328 mg powder for oral solution (3 sources) Osmotic Laxative Start: 01-03-2021 End: 07-17-2021 polyethylene glycol 3350 (MIRALAX, GLYCOLAX) 17 gram/dose powder Take 17 g by mouth once daily. 2108 g 3 01/03/2021 07/17/2021 Discontinued Start: 05-03-2015 End: 01-03-2021 polyethylene glycol 3350 (AZ RALAX, GLYCOLAX) 17 gram/dose powder TAKE 17 GRAMS BY MOUTH TWICE DAILY 2108 g 3 10/28/2017 01/03/2021 Discontinued predniSONE 10 mg oral tablet (2 sources) Start: 01-22-2022 End: 01-31-2022 predniSONE (DELTASONE) 10 mg tablet Indications: Bilateral elbow joint pain , Lateral epicondylitis of both elbows Take 4 tabs daily for 3 days, then 2 tabs daily for 3 days, then 1 tab daily for 3 days with food. 21 tablet 01/22/2022 01/31/2022 Saliva Stimulant Agents Comb.3 (BIOTENE MOISTURIZING MOUTH) spry (2 sources) Start: 03-03-2015 End: 01-15-2022 take 5 mL by mouth four times daily as needed Saliva Stimulant Comb. No.3 (Biotene Moisturizing Mouth) 44.3 ML spray,non-aerosol (4 sources) Start: 05-03-2015 End: 01-03-2023 take 44.3 mL by mouth four times daily as needed Saliva Stimulant Comb. No.3 (Biotene Moisturizing Mouth) 44.3 ML spray,non-aerosol Discontinued 5 ML MM 4 TIMES DAILY NEEDED May 02, 2015 11:00pm January 03, 2023 12:07pm Start: 05-03-2015 End: 01-03-2023 take 44.3 mL by mouth four times daily as needed Saliva Stimulant Comb. No.3 (Biotene Moisturizing Mouth) 44.3 ML spray,non-aerosol Discontinued 5 ML MM 4 TIMES DAILY NEEDED May 03, 2015 12:00am January 03, 2023 1:07pm 125 ml sodium chloride 9 mg/ml prefilled syringe (20 sources) Start: 02-13-2022 End: 03-25-2024 sodium chloride 0.9 % (flush) 10 mL (BD POSIFLUSH) tretinoin 0.5 mg/ml topical cream (5 sources) Retinoid Start: 05-03-2015 End: 01-03-2023 Tretinoin (Emollient) Discontinued 1 APPLICATIO TP AT BEDTIME May 03, 2015 12:00am January 03, 2023 1:07pm triamcinolone acetonide 5 mg/ml topical cream (10 sources) Corticosteroid Start: 05-03-2015 End: 01-03-2023 Triamcinolone 0.1% Cream (Kenalog) 1 APPLIC Tube Discontinued 1 APPLIC TOPICAL THREE TIMES A DAY May 03, 2015 12:00am January 03, 2023 1:07pm Start: 05-03-2015 End: 01-03-2023 Triamcinolone Acetonide Disc ontinued 1 APPLIC TOPICAL TWICE DAILY NEEDED May 03, 2015 12:00am January 03, 2023 1:07pm 30 actuat umeclidinium 0.0625 mg/actuat / vilanterol 0.025 mg/actuat dry powder inhaler (20 sources) Anticholinergic, beta2-Adrenergic Agonist Start: 06-14-2024 End: 08-25-2024 take 1 puff(s) by mouth once daily umeclidinium-vilanterol (ANORO ELLIPTA) 62.5-25 mcg/actuation inhaler Indications: Stage 2 moderate COPD by GOLD classification ([facility]) INHALE 1 PUFF BY MOUTH ONCE DAILY DIRECTED 60 Each 3 06/14/2024 08/25/2024 Discontinued (Changing Therapy/Dosage Form) Start: 04-19-2024 End: 04-19-2025 umeclidinium-vilanterol (ANO RO ELLIPTA) 62.5-25 mcg/actuation inhaler Indications: Stage 2 moderate COPD by GOLD classification ([facility]) Inhale 1 Inhalation as instructed once daily. 60 Each 1 04/19/2024 06/14/2024 Discontinued Start: 01-03-2023 Umeclidinium-V ilanterol (Anoro Ellipta) 62.5-25 mcg/actuation blister with device Active 1 INH INHALATION DAILY January 03, 2023 1:00am Start: 07-02-2022 End: 04-17-2024 take 1 puff(s) by mouth once daily ANORO ELLIPTA 62.5-25 mcg/actuation inhaler Indications: Stage 2 moderate COPD by GOLD classification ([facility]) inhale 1 puff by mouth and INTO THE LUNGS once daily 1 Each 01/06/2023 04/17/2024 Discontinued Start: 12-28-2021 End: 07-02-2022 umeclidinium-vilanterol (ANO RO ELLIPTA) 62.5-25 mcg/actuation inhaler Indications: Stage 2 moderate COPD by GOLD classification ([facility]) Inhale 1 Inhalation as instructed once daily. 1 Each 5 12/28/2021 07/02/2022 Discontinued Start: 05-10-2020 End: 05-23-2021 umeclidinium-vilanterol (ANO RO ELLIPTA) 62.5-25 mcg/actuation inhaler Indications: Stage 2 moderate COPD by GOLD classification ([facility]) Inhale 1 Inhalation as instructed once daily. 1 Each 10/05/2020 05/23/2021 Discontinued Comment on above: Inhale 1 Inhalation as instructed once daily. 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] Onset: 2 02-04-2022 Chronic Attention-deficit, conduct, and disruptive behavior disorders (5 sources) Attention deficit hyperactivity disorder; Translations: [Attention-deficit hyperactivity disorder, unspecified type] 05-02-2015 Chronic Blindness and vision defects (4 sources) Bilateral myopia of eyes; Translations: [Myopia, bilateral] Episodic Chronic obstructive pulmonary disease and bronchiectasis (20 sources) Chronic obstructive lung disease; Translations: [Chronic obstructive pulmonary disease, unspecified] Onset: 9 Resolved: 2 04-19-2019 Chronic Coagulation and hemorrhagic disorders (2 sources) Spontaneous bruising; Translations: [Spontaneous ecchymoses] Episodic Diabetes mellitus without complication (1 source) Hyperglycemia; Translations: [Hyperglycemia, unspecified] Episodic Disorders of lipid metabolism (20 sources) Hyperlipidemia; Translations: [Other hyperlipidemia] Onset: 2 Resolved: 2 01-07-2018 Chronic Disorders usually diagnosed in infancy, childhood, or adolescence (20 sources) Attention deficit hyperactivity disorder, predominantly inattentive type; Translations: [Other specified behavioral and emotional disorders with onset usually occurring in childhood and adolescence] Onset: 5 Resolved: 2 01-07-2018 Chronic Esophageal disorders (20 sources) Gastroesophageal reflux disease without esophagitis; Translations: [Gastro-esophageal reflux disease without esophagitis] Onset: 5 Resolved: 2 01-07-2018 Chronic Essential hypertension (20 sources) Benign essential hypertension; Translations: [Essential (primary) hypertension] Onset: 2 02-04-2022 Chronic Gastroduodenal ulcer (except hemorrhage) (3 sources) Gastric ulcer; Translations: [Gastric ulcer, unspecified as acute or chronic, without hemorrhage or perforation] 12-31-2023 Chronic Gastroduodenal ulcer (except hemorrhage) (4 sources) H/O: peptic ulcer; Translations: [Personal history of peptic ulcer disease] Episodic Genitourinary symptoms and ill-defined conditions (20 sources) Intermittent urinary incontinence; Translations: [Unspecified urinary incontinence] Onset: 4 03-02-2014 Chronic Headache; including migraine (20 sources) Migraine; Translations: [Migraine, unspecified, not intractable, without status migrainosus] Onset: 3 02-05-2013 Chronic Immunizations and screening for infectious disease (3 sources) Needs influenza immunization; Translations: [Encounter for immunization] Episodic Leukemias (20 sources) Chronic myeloid leukemia; Translations: [Chronic myeloid leukemia, BCR/ABL-positive, not having achieved remission] Onset: 5 02-13-2015 Chronic Mood disorders (20 sources) Bipolar affective disorder, current episode mixed; Translations: [Bipolar disorder, current episode mixed, unspecified] Onset: 7 Resolved: 2 01-07-2018 Chronic Multiple myeloma (20 sources) Multiple myeloma; Translations: [Multiple myeloma not [...] D deficiency, unspecified] Onset: 9 04-19-2019 Chronic Occlusion or stenosis of precerebral arteries (4 sources) Bilateral atherosclerosis of carotid arteries; Translations: [Occlusion and stenosis of bilateral carotid arteries] Onset: 5 02-16-2025 Chronic Open wounds of extremities (1 source) Open wound of toe; Translations: [Unspecified open wound of unspecified toe(s) without damage to nail, initial encounter] Episodic Osteoarthritis (20 sources) Arthritis of left knee; Translations: [Unilateral primary osteoarthritis, left knee] Onset: 2 02-13-2022 Chronic Other and ill-defined heart disease (12 sources) Left ventricular hypertrophy; Translations: [Cardiomegaly] Onset: 4 11-17-2024 Chronic Other and ill-defined heart disease (1 source) Cardiomegaly; Translations: [LVH (left ventricular hypertrophy)] Onset: 4 Chronic Other and unspecified benign neoplasm (1 [...] respiratory systems] Episodic Other connective tissue disease (5 sources) Infection of olecranon bursa of left elbow; Translations: [Other infective bursitis, left elbow] 05-03-2015 Episodic Other connective tissue disease (1 source) [...] of left elbow] Onset: 2 Episodic Other connective tissue disease (2 sources) Pain in both feet; Translations: [Pain in right foot] 02-04-2024 Episodic Other diseases of bladder and urethra (20 sources) Overactive bladder; Translations: [Overactive bladder] Onset: 2 10-23-2022 Chronic Other eye disorders (2 sources) Meibomian gland dysfunction of bilateral eyes; Translations: [Meibomian gland dysfunction right eye, upper and lower eyelids] Episodic Other gastrointestinal disorders (3 sources) Chronic idiopathic constipation; Translations: [Chronic idiopathic constipation] Chronic Other gastrointestinal disorders (5 sources) Dysphagia; Translations: [Dysphagia, unspecified] Episodic Other gastrointestinal disorders (4 sources) Dysphagia, unspecified; Translations: [Dysphagia, unspecified] 03-25-2023 Episodic Other gastrointestinal disorders (3 sources) Chronic constipation; Translations: [Other constipation] 10-30-2023 Episodic Other gastrointestinal disorders (3 sources) Other constipation; Translations: [Constipation, unspecified] 10-30-2023 Episodic Other hereditary and degenerative nervous system conditions (20 sources) Restless legs; Translations: [Restless legs syndrome] Onset: 9 04-19-2019 Chronic Other hereditary and degenerative nervous system conditions (1 source) Restless legs syndrome; Translations: [RLS (restless legs syndrome)] Onset: 9 Chronic Other liver diseases (20 sources) Steatosis of liver; Translations: [Fatty (change of) liver, not elsewhere classified] Onset: 2 12-18-2011 Chronic Other lower respiratory disease (2 sources) Wheezing; Translations: [Wheezing] Episodic Other lower respiratory disease (5 sources) Dyspnea; Translations: [Dyspnea, unspecified] Episodic Other lower respiratory disease (4 sources) Imaging of lung abnormal ; Translations: [Other nonspecific abnormal finding of lung field] Episodic Other lower respiratory disease (1 source) Tachypnea; Translations: [Tachypnea, not elsewhere classified] 06-26-2023 Episodic Other lower respiratory disease (1 source) Nodule of lung; Translations: [Solitary pulmonary nodule] 10-11-2024 Episodic Other male genital disorders (20 sources) Male erectile dysfunction, unspecified; Translations: [Impotence of organic origin] Onset: 0 07-04-2010 Chronic Other male genital disorders (1 source) Secondary erectile dysfunction; Translations: [Male erectile dysfunction, unspecified] 02-04-2024 Chronic Other nervous system disorders (4 sources) Disturbance of attention; Translations: [Attention and concentration deficit] 08-18-2024 Chronic Other non-epithelial cancer of skin (5 sources) Basal cell carcinoma of skin; Translations: [Basal cell carcinoma of skin, unspecified] 05-02-2015 Episodic Other non-traumatic joint disorders (2 sources) Chronic pain of left upper limb; Translations: [Pain in left elbow] Episodic Other non-traumatic joint disorders (1 source) Pain in elbow; Translations: [Pain in left elbow] Episodic Other non-traumatic joint disorders (1 source) Chronic pain of right upper limb; Translations: [Pain in right elbow] Episodic Other nutritional; endocrine; and metabolic disorders (5 sources) Hypercalcemia; Translations: [Hypercalcemia] 06-17-2023 Chronic Other nutritional; endocrine; and metabolic disorders (1 source) Weight gain; Translations: [Abnormal weight gain] 02-04-2024 Episodic Peripheral and visceral atherosclerosis (20 sources) Peripheral vascular disease, unspecified; Translations: [Peripheral vascular disease, unspecified] Onset: 2 Chronic Residual codes; unclassified (20 sources) Idiopathic hypersomnia; 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] Onset: 5 03-15-2015 Chronic Residual codes; unclassified (5 sources) Other specified health status; Translations: [Failure of outpatient treatment] 05-03-2015 Episodic Residual codes; unclassified (5 sources) Tobacco user; Translations: [Tobacco use] Episodic Residual codes; unclassified (1 source) Did not attend; Translations: [No-show for appointment] Episodic Schizophrenia and other psychotic disorders (20 sources) Schizophrenia; Translations: [Schizophrenia, unspecified] Onset: 2 02-04-2022 Chronic Thyroid disorders (20 sources) Acquired hypothyroidism; Translations: [Hypothyroidism, unspecified] Onset: 3 10-10-2023 Chronic Unclassified (1 source) Patient encounter status 02-16-2025 Past or Other Problems Problem Classification Problem Date Documented Da te Episodic/Chronic Abdominal pain (20 sources) Generalized abdominal pain; Translations: [Generalized abdominal pain] Onset: 8 01-07-2018 Episodic Administrative/social admission (20 sources) Drug therapy finding; Translations: [Encounter for other administrative examinations] Onset: 0 01-19-2020 Episodic Allergic reactions (20 sources) Hand eczema; Translations: [Dermatitis, unspecified] Onset: 3 02-05-2013 Episodic Cardiac dysrhythmias (20 sources) Tachycardia; Translations: [Tachycardia, unspecified] Onset: 7 04-10-2007 Episodic Gastritis and duodenitis (20 sources) Duodenitis; Translations: [Duodenitis without bleeding] Onset: 2 Resolved: 2 01-18-2022 Episodic Gastrointestinal hemorrhage (20 sources) Gastrointestinal hemorrhage; Translations: [Gastrointestinal hemorrhage, unspecified] Onset: 6 Resolved: 2 01-18-2022 Episodic Headache; including migraine (20 sources) Headache; Translations: [Headache] Onset: 6 Resolved: 2 01-18-2022 Episodic Immunity disorders (20 sources) Patient immunocompromised; Translations: [Immunodeficiency, unspecified] Onset: 3 Resolved: 4 Chronic Malaise and fatigue (20 sources) Fatigue; Translations: [Other fatigue] Onset: 3 Episodic Mycoses (20 sources) Onychomycosis; Translations: [Tinea unguium] Onset: 2 02-04-2022 Episodic Nonspecific chest pain (20 sources) Chest pain; Translations: [Chest pain, unspecified] Onset: 7 Resolved: 2 Episodic Nutritional deficiencies (20 sources) Cobalamin deficiency; Translations: [Deficiency of other specified B group vitamins] Onset: 2 Episodic Other aftercare (1 source) Encounter for therapeutic drug level monitoring; Translations: [Medication monitoring encounter] Onset: 4 Episodic Other and unspecified benign neoplasm (20 sources) History of polyp of colon; Translations: [Personal history of colonic polyps] Onset: 8 08-05-2018 Episodic Other bone disease and musculoskeletal deformities (20 sources) Disorder of bone; Translations: [Other specified disorders of bone density and structure, multiple sites] Onset: 2 Episodic Other connective tissue disease (20 sources) Olecranon bursitis; Translations: [Olecranon bursitis, unspecified elbow] Onset: 5 06-27-2015 Episodic Other connective tissue disease (20 sources) Pain in bilateral legs; Translations: [Pain in right leg] Onset: 8 01-07-2018 Episodic Other connective tissue disease (20 sources) Lateral epicondylitis of bilateral humerus; Translations: [Lateral epicondylitis, right elbow] Onset: 2 02-13-2022 Episodic Other connective tissue disease (20 sources) Suprapatellar bursitis of left knee; Translations: [Other bursitis of knee, left knee] Onset: 2 02-13-2022 Episodic Other connective tissue disease (1 source) Pain in right leg; Translations: [Bilateral leg pain] Onset: 8 Episodic Other connective tissue disease (1 source) Pain in left leg; Translations: [Bilateral leg pain] Onset: 8 Episodic Other gastrointestinal disorders (20 sources) Splenomegaly; Translations: [Splenomegaly, not elsewhere classified] Onset: 1 12-30-2020 Episodic Other lower respiratory disease (20 sources) Dyspnea on exertion; Translations: [Other forms of dyspnea] Onset: 3 10-10-2023 Episodic Other lower respiratory disease (1 source) Other forms of dyspnea; Translations: [KNOX (dyspnea on exertion)] Onset: 3 Episodic Other nervous system disorders (20 sources) Impairment of balance; Translations: [Other abnormalities of gait and mobility] Onset: 3 Episodic Other non-traumatic joint disorders (20 sources) Bilateral elbow joint pain; Translations: [Pain in right elbow] Onset: 2 Episodic Other non-traumatic joint disorders (20 sources) Pain in left knee; Translations: [Pain in joint, lower leg] Onset: 6 02-13-2022 Episodic Other non-traumatic joint disorders (20 sources) Pain in lower limb; Translations: [Pain in unspecified knee] Onset: 7 Resolved: 2 01-18-2022 Episodic Other screening for suspected conditions (not mental disorders or infectious disease) (20 sources) Patient encounter status; Translations: [Encounter for screening for cardiovascular disorders] Onset: 5 Resolved: 2 Episodic Regional enteritis and ulcerative colitis (20 sources) Chronic ulcerative proctitis; Translations: [Ulcerative (chronic) proctitis without complications] Onset: 6 Resolved: 2 01-18-2022 Chronic Residual codes; unclassified (20 sources) Family history of prostate cancer; Translations: [Family history of malignant neoplasm of prostate] Onset: 3 02-05-2013 Episodic Residual codes; unclassified (20 sources) Tobacco use and exposure - finding; Translations: [Tobacco use] Onset: 5 07-18-2015 Episodic Residual codes; unclassified (1 source) Tobacco use; Translations: [Tobacco use current] Onset: 4 Episodic Skin and subcutaneous tissue infections (20 sources) Disorder of nail; Translations: [Cellulitis of unspecified toe] Onset: 2 04-16-2012 Episodic Spondylosis; intervertebral disc disorders; other back problems (20 sources) Neck pain; Translations: [Cervicalgia] Onset: 6 Resolved: 2 Episodic Substance-related disorders (20 sources) Substance abuse; Translations: [Other psychoactive substance abuse, uncomplicated] Onset: 5 Resolved: 2 01-18-2022 Chronic Viral infection (20 sources) Herpes simplex; Translations: [Herpesviral infection, unspecified] Onset: 4 Resolved: 6 11-26-2021 Episodic Results Test Name Value Interpretation Reference Range Facility BRAIN & CERVICAL SPINE MRI D [facility] DATAon 09-01-2024 Brain Enhancing Lesions None [facility] Brain Interval Improvement None [facility] Brain New T2 Lesions None Site [facility] Brain Other Significant MRI Findings None. [facility] Brain Parenchymal Volume Loss None [facility] Brain T2 [place] of Disease Mild [facility] Radiology Study observation (narrative) [facility] MR Brain WO and W contrast I Von 09-01-2024 IMPRESSION: Multiple intracranial white matter lesions compatible with multiple sclerosis. No new T2 lesions and no new enhancing lesions. No significant parenchymal volume loss. Other Significant Intracranial Findings: None Chemical Weigher: MAXINEB Transcribe Date/Time: Sep 01 2024 9:05A Dictated by : DESHAUN MIGUEL MD This examination was interpreted and the report reviewed and electronically signed by: DESHAUN MIGUEL MD on Sep 01 2024 9:07AM [facility] DIVISION OF RADIOLOGY * * *Final Report* * * DATE OF EXAM: Sep 01 2024 8:52AM QBM 0295 - MRI BRAIN WO/W IVCON / PROCEDURE REASON: Multiple sclerosis (HCC) * * * * Physician Interpretation * * * * EXAMINATION: MRI BRAIN WO/W IVCON HISTORY: Multiple sclerosis. Routine follow-up TECHNIQUE: Brain MRI with demyelinating disease protocol with and without IV gadolinium. MQ: [id number] Contrast: 18 ml mL Dotarem IV COMPARISON: MRI brain 03/18/2023. RESULT: MR BRAIN: Parenchymal Findings: There are multiple foci of hyperintensity on FLAIR and T2 within the white matter, compatible with the clinical diagnosis of multiple sclerosis. New T2 Lesions: None Site(s) of New/Larger T2 Lesion(s): Not applicable Interval Improvement: None. New Enhancing Lesions: None T2 [place] of Disease: Mild. Parenchymal Volume Loss: None. Other Significant Findings: None. *Note:? The definition of new T2 Lesions includes both new and enlarging plaques on T2-weighted FLAIR images (new lesions greater than or equal to 5mm3 or an increase in diameter of an existing lesion by greater than or equal to 2mm). DIVISION OF RADIOLOGY Provider, [facility] - 09/01/2024 * * *Final Report* * * DATE OF EXAM: Sep 01 2024 8:52AM QBM 0295 - MRI BRAIN WO/W IVCON / PROCEDURE REASON: Multiple sclerosis (HCC) * * * * Physician Interpretation * * * * EXAMINATION: MRI BRAIN WO/W IVCON HISTORY: Multiple sclerosis. Routine follow-up TECHNIQUE: Brain MRI with demyelinating disease protocol with and without IV gadolinium. MQ: [id number] Contrast: 18 ml mL Dotarem IV COMPARISON: MRI brain 03/18/2023. RESULT: MR BRAIN: Parenchymal Findings: There are multiple foci of hyperintensity on FLAIR and T2 within the white matter, compatible with the clinical diagnosis of multiple sclerosis. New T2 Lesions: None Site(s) of New/Larger T2 Lesion(s): Not applicable Interval Improvement: None. New Enhancing Lesions: None T2 [place] of Disease: Mild. Parenchymal Volume Loss: None. Other Significant Findings: None. *Note:? The definition of new T2 Lesions includes both new and enlarging plaques on T2-weighted FLAIR images (new lesions greater than or equal to 5mm3 or an increase in diameter of an existing lesion by greater than or equal to 2mm). IMPRESSION IMPRESSION: Multiple intracranial white matter lesions compatible with multiple sclerosis. No new T2 lesions and no new enhancing lesions. No significant parenchymal volume loss. Other Significant Intracranial Findings: None Chemical Weigher: YOBANY Transcribe Date/Time: Sep 01 2024 9:05A Dictated by : DESHAUN MIGUEL MD This examination was interpreted and the report reviewed and electronically signed by: DESHAUN MIGUEL MD on Sep 01 2024 9:07AM EST [facility] Radiology Study observation (narrative) [facility] MR Brain WO and W contrast I VOrdered By: [facility] Provider on 09-01-2024 [facility] SPIROMETRY BASELINE ONLYon 0 08-25-2024 FEF25% PRE (L/S) 6.95 L/S [facility] WDV67-94% LLN (L/S) 1.92 L/S [facility] CSV59-90% PRE (L/S) 1.93 L/S [facility] BRF37-13% PREDICTED (L/S) 3.67 L/S [facility] FEF75% LLN (L/S) 0.53 L/S [facility] FEF75% PRE (L/S0 0.63 L/S [facility] FEF75% PREDICTED (L/S) 1.24 L/S [facility] FEF75% ULN (L/S) 2.73 L/S [facility] FET PRE (S) 13.40 S [facility] FEV1 LLN (L) 3.08 L [facility] FEV1 PRE (L) 3.61 L [facility] FEV1 PREDICTED (L) 4.11 L [facility] FEV1 ULN (L) 5.08 L [facility] FEV1/FVC LLN (%) 67 % [facility] FEV1/FVC PRE (%) 67 % 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 No contraindications or sensitivities were noted. Meds taken: Anoro 2 hours before testing. Current ATS/ERS acceptability and repeatability standards for spirometry met. Start of test and EOFE criteria met. IMPRESSION: Spirometry is normal. Flow volume loop has obstructive pattern. Electronically Signed On 08-25-2024 16:17:33 EDT by Alana Lundberg MD ID: [id number] Name: OTONIEL VICTORIA Race: White Ht: 74.00 in Wt: 203.00 lbs Age: 54 Gender: Male : 1970 Dx: COPD_ Smoking Hx: Non-smoker Doctor: HARRIETT GREGORIO Test Date: 08/25/2024 Site: Tech: Myriam Ragsdale PRE-BRONCH POST-BRONCH Pre LLN Pred ULN %Pred Post %Pred %Chg SPIROMETRY FVC (L) 5.35 3.99 5.27 6.58 101 FEV1 (L) 3.61 3.08 4.11 5.08 87 FEV1/FVC 0.67 0.67 0.78 0.87 86 PEF L/s (L/sec) 9.23 7.95 10.54 13.12 87 FEF50 (L/sec) 2.72 3.21 5.33 7.46 51 FIF50 (L/sec) 4.99 FEF50/FIF50 0.55 90-100 FIVC (L) 4.92 YEK27-70 (L/sec) 1.93 1.92 3.67 5.99 52 Time (sec) 13.40 FET PEF (sec) 0.08 NURA (L) 0.18 Vol Extrap % (%) 3 Comments: Medications and Allergies were reviewed for possible drug interactions per policy. No contraindications or sensitivities were noted. Meds taken: Anoro 2 hours before testing. Current ATS/ERS acceptability and repeatability standards for spirometry met. Start of test and EOFE criteria met. PULMONARY FUNCTION LAB [facility] Gastroenterology Visit Repor ton 06-23-2024 Gastroenterology Visit Report [facility]astroenterology [address] [place] [address] OFFICE VISIT Date of Service: 06/23/24 MR#: [id number] Acct: [id number] Name: OTONIEL VICTORIA Rep #: [id number] : 1970 Provider: Charly Parada DO Age/Sex: 53/M Location: [facility] [email or web address] Status: Signed Intake Vital Signs 02/18/24 09:23 Height 6 ft Intake Visit Reasons: Follow Up Allergies shellfish derived Allergy (Mild, Verified 01/12/24 06:56) unknown Environmental Allergies: Uncoded Allergy (Verified 01/12/24 06:56) Itching Penicillins (PCN) Allergy (Verified 01/12/24 06:56) Rash topiramate (From Topamax) Allergy (Verified 01/12/24 06:56) Hives aspirin Adverse Reaction (Verified 01/12/24 06:56) Nausea Medications ???Medication ???Instructions ???Recorded ???Confirmed ???Type gemfibrozil 600 mg tablet 600 mg PO BID 07/15/14 06/23/24 History oxybutynin chloride 15 mg 15 mg PO DAILY 07/15/14 06/23/24 History tablet,extended release 24 hr (Ditropan XL) vilazodone 40 mg tablet (Viibryd) 40 mg PO DAILY 07/15/14 06/23/24 History albuterol sulfate 90 mcg/actuation 2 puff inhalation Q4H PRN PRN 05/03/15 06/23/24 History aerosol inhaler (Ventolin HFA) sob/wheezing ammonium lactate 12 % lotion 1 applic TP PRN PRN Dry Skin 05/03/15 06/23/24 History (AmLactin) gabapentin 600 mg tablet 600 mg PO BID 05/03/15 06/23/24 History lamotrigine 200 mg tablet 200 mg PO DAILY 05/03/15 06/23/24 History (Lamictal) omeprazole 40 mg capsule,delayed 40 mg PO DAILY 01/03/23 06/23/24 History release umeclidinium 62.5 mcg-vilanterol 1 inh inhalation DAILY 01/03/23 06/23/24 History 25 mcg/actuation powdr for inhalation (Anoro Ellipta) atenolol 25 mg tablet 25 mg PO DAILY 05/14/23 06/23/24 History dextroamphetamine-amphetamin e 10 10 mg PO PRN PRN ADHD 05/14/23 06/23/24 History mg tablet dextroamphetamine-amphetamin e ER 30 mg PO PRN PRN ADHD 05/14/23 06/23/24 History 30 mg 24hr capsule,extend release aripiprazole 20 mg tablet 20 mg PO DAILY 01/07/24 06/23/24 History asciminib 40 mg tablet (Scemblix) 80 mg PO DAILY 01/07/24 06/23/24 History cyanocobalamin (vitamin B-12) 1,000 mcg IM QWEEK 01/07/24 06/23/24 History 1,000 mcg/mL injection solution hydrocodone-acetaminophen 5-325mg 1 tab PO Q6H PRN pain 01/07/24 06/23/24 History 5mg-325mg linaclotide 290 mcg capsule 290 mcg PO DAILY #30 caps 03/08/24 06/23/24 Rx (Linzess) sucralfate 1 gram tablet 1 g PO TID #90 TABLETS 03/29/24 06/23/24 Rx PFSH Medical History (Updated 02/18/24 @ 11:44 by Jade Olsen, BREAD WRAPPER OPERATOR-C) Multiple sclerosis History of Clostridium difficile infection Shortness of breath on exertion History of stress test Hx of bipolar disorder Easy bruising Wears dentures Wears glasses Cancer Anxiety Rheumatoid arthritis DVT (deep venous thrombosis) High cholesterol History of leukemia Back pain Migraine headache Syncope History of ulceration Smoker History of pain when walking History of echocardiogram Hypertension History of irregular heartbeat GERD (gastroesophageal reflux disease) Dyspnea COPD (chronic obstructive pulmonary disease) Arthritis Arrhythmia Surgical History (Updated 01/07/24 @ 10:40 by Rachana Riojas) Hx of colonoscopy History of esophagogastroduodenoscopy (EGD) History of dental surgery Hx of surgical procedure Hx of elbow surgery Hx of surgical procedure History of tonsillectomy Family History Mother Heart disease Father Prostate cancer Sister Lung cancer Social History Smoking Status: Current every day smoker tobacco type: cigarettes alcohol intake: never HPI HPI Details: OTONIEL VICTORIA, is a 53 M who presents to the office today for follow up. Pulmonary OV noting dysphagia. [facility] workup: ? EGD [facility] 1.26.21 duodenal inflammation with erosions, friability and granularity; gastric ulcerations with severe inflammation. ? EGD [facility] 3.18.21 gastric ulcerations. ? EGD [facility] 6..21 gastritis. ? EGD [facility] 08.13.22 without visual abnormality. *BGI established 03.25.23 with history as above. Contact 05.14.23 start Linzess 72mcg. 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 Biochemical AMA, ASM, hepatitis without pertinent abnormality. RAST seafood H; low: scallop and shrimp. IgG L502; I (more content not included)... Normal [facility] Miscellaneous Lab Procedureo n 03-12-2024 [facility] [place] Normal [facility] Comment on above: Order Comment: FLOW [id number] Performed By: #### L 801.1541, L801.1543 #### [facility] [address] [place], [address] Miscellaneous Lab Procedure 2on 03-12-2024 [facility] [place] 2 SEE PATH REPORT Normal [facility] Comment on above: Order Comment: CYTOG ENETICS [id number] Performed By: #### L 801.1541, L801.1543 #### [facility] [address] [place], [address] Absolute lymphocyte countOrd ered By: Jade Olsen on 02-18-2024 Lymphocytes Auto (Unsp spec) [#/Vol] 2.71 10*3/uL 0.83-4.51 [facility] Automated lymphocyte count a s percentage of total leukocytesOrdered By: Jade Olsen on 02-18-2024 Lymphocytes/100 WBC Auto (Unsp spec) 32.9 % 19-41 [facility] Basophil percentageOrdered B y: Jade Olsen on 02-18-2024 Basophils/100 WBC (Bld) 0.6 % 0-1 [facility] Eosinophils/100 WBC (Bld) 3.5 % 0-5 [facility] Hemoglobin (Bld) [Mass/Vol] 14.2 g/dL 13.0-16.5 [facility] Monocytes/100 WBC (Bld) 9.2 % 0-10 [facility] Neutrophils (Bld) [#/Vol] 4.3 10*3/uL 2.0-7.7 [facility] Neutrophils/100 WBC (Bld) 52.7 % 47-70 [facility] WBC (Bld) [#/Vol] 8.2 10*3/uL 4.4-11.0 [facility] CBC W/Diff, Automatedon 01-30 Absolute Lymph 2.71 X10 3/uL Normal 0.83-4.51 [facility] Comment on above: Performed By: #### L 100.0100 #### [facility] [address] [place], [address] Absolute Neut 4.3 X10 3/uL Normal 2.0-7.7 [facility] Comment on above: Performed By: #### L 100.0100 #### [facility] [address] [place], [address] Basophils/100 WBC (Bld) 0.6 % Normal 0-1 [facility] Comment on above: Performed By: #### L 100.0100 #### [facility] [address] [place], [address] Eosinophils/100 WBC (Bld) 3.5 % Normal 0-5 [facility] Comment on above: Performed By: #### L 100.0100 #### [facility] [address] [place], [address] Erythrocyte distribution width (RBC) [Ratio] 14.2 % Normal 11.6-14.6 [facility] Comment on above: Performed By: #### L 100.0100 #### [facility] [address], [address] Hematocrit (Bld) [Volume fraction] 45.0 % Normal 40-54 [facility] Comment on above: Performed By: #### L 100.0100 #### [facility] [address] [place], [address] Hemoglobin (Bld) [Mass/Vol] 14.2 g/dL Normal 13.0-16.5 [facility] Comment on above: Performed By: #### L 100.0100 #### [facility] [address] [place], [address] IG% 1.100 High 0.0-0.9 [facility] Comment on above: Result Comment: IG% - Immature Granulocytes (promyelocytes, myelocytes and metamyelocytes) > 1% indicates that a LEFT SHIFT is Present. Performed By: #### L 100.0100 #### [facility] [address] [place], [address] Lymphocytes/100 WBC (Bld) 32.9 % Normal 19-41 [facility] Comment on above: Performed By: #### L 100.0100 #### [facility] [address] [place], [address] MCH (RBC) [Entitic mass] 26.8 pg Low 27.0-32.0 [facility] Comment on above: Performed By: #### L 100.0100 #### [facility] [address] [place], [address] MCHC (RBC) [Mass/Vol] 31.6 g/dL Low 32-36 [facility] Comment on above: Performed By: #### L 100.0100 #### [facility] [address] [place], [address] MCV (RBC) [Entitic vol] 85.1 fL Normal 80-94 [facility] Comment on above: Performed By: #### L 100.0100 #### [facility] [address] [place], [address] Monocytes/100 WBC (Bld) 9.2 % Normal 0-10 [facility] Comment on above: Performed By: #### L 100.0100 #### [facility] [address] [place], [address] Neutrophils/100 WBC (Bld) 52.7 % Normal 47-70 [facility] Comment on above: Performed By: #### L 100.0100 #### [facility] [address] [place], [address] Nucleated RBC (Bld) [#/Vol] 0 10*3/uL Normal 0-5 [facility] Comment on above: Performed By: #### L 100.0100 #### [facility] [address] [place], [address] Platelet mean volume (Bld) [Entitic vol] 10.8 fL Normal 6.2-12.0 [facility] Comment on above: Performed By: #### L 100.0100 #### [facility] [address] [place], [address] Platelets (Bld) [#/Vol] 251 10*3/uL Normal 150-450 [facility] Comment on above: Performed By: #### L 100.0100 #### [facility] [address] [place], [address] RBC (Bld) [#/Vol] 5.29 10*6/uL Normal 4.6-6.2 [facility] Comment on above: Performed By: #### L 100.0100 #### [facility] [address] [place], [address] RDW SD 43.7 fl Normal 35.1-43.9 [facility] Comment on above: Performed By: #### L 100.0100 #### [facility] [address] [place], [address] WBC (Bld) [#/Vol] 8.2 10*3/uL Normal 4.4-11.0 [facility] Comment on above: Performed By: #### L 100.0100 #### [facility] [address] [place], [address] CD138 (initial)on 02-18-2024 CD138 (initial) Patient Age/Sex Loca tion Account Attending Physician OTONIEL VICTORIA 53/M CT [id number] Dr. Otoniel Heaton DO Specimen: [id number] Received: 02/19/24 Status: [facility] Num: [id number] Spec Type: IMMUNO Subm Dr: Dr. tOoniel Heaton DO PHYSICIAN INSTITUTION [address] [address] SPECIMEN INFORMATION: Tissue Source: A. Bone marrow core, B. Bone marrow clot Clinical Info: CML and smoldering myeloma Specimen Number: [id number] CPT code: 47241 METHODOLOGY: Deparaffinized sections of prefer/formalin-fixed tissue or PAP/DQ stained slides are incubated with monoclonal/polyclonal antibodies/oligonucleotide probes. Localization is made via biotin free immunoperoxidase method. Appropriate controls are performed and reacted as expected. Results on target cell population are indicated in the following table: RESULTS: ANTIBODY / CLONE RESULT Block A CD138 (B-A38) positive, a few cells [place] (polyclonal) negative Lambda (polyclonal) positive CD34 (QBEnd-10) negative Block B CD138 (B-A38) positive, a few cells [place] (polyclonal) negative Lambda (polyclonal) positive CD34 (QBEnd-10) negative These tests were developed and their performance characteristics determined by [facility]. They may not have been cleared or approved by the U.S. Food and Drug Administration. The FDA has determined that such clearance or approval is not necessary. The above immunohistochemical/dualISH markers are ordered and reviewed by the Pathologist. INTERPRETATION: A. Bone marrow core; A few plasma cells with lambda monoclonality noted. Significant increase of blasts is not seen. B. Bone marrow clot; A few plasma cells with lambda monoclonality noted. Significant increase of blasts is not seen. Comment. -------- Patient Age/Sex Location Account Attending Physician -------- OTONIEL VICTORIA/Berny CT [id number] Dr. Otoniel Heaton, -------- INTERPRETATION: (Continued) Aspirate smears shows 3% plasma cells. Case has been reviewed in consultation with Dr. Che who concurs with the above diagnosis. IDC:SONALI LILI/ 02/25/2024 Signed (signature on file) Dr. Hans Zuleta MD 02/26/24 1137 -------- Normal [facility] Comment on above: Performed By: #### P CD138 #### [facility] [address] [place] [address]. [place], [place], [address] Decalcification bone/plaqueo n 02-18-2024 Decalcification bone/plaque Patient Age/Sex Location Account Attending Physician OTONIEL VICTORIA 53/M CT [id number] Dr. Otoniel Heaton DO Specimen: [id number] Received: 02/18/24 Status: [facility] Num: [id number] Spec Type: BMB Subm Dr: Dr. Otoniel Heaton DO HEADER MOPERATION: CT guided bone marrow aspiration PRE-OP DIAGNOSIS: CML and Smoldering myeloma TISSUE SUBMITTED: A - Core, B - Clot, C - Smears, and send outs (flow, cytogenetics) -------- BONE MARROW DIAGNOSIS Bone marrow core, clot and aspirate smears; A few plasma cells with lambda monoclonality noted. See comment. LILI/mr 02/25/24 COMMENT Flow cytometric study from [facility] shows abnormal cytoplasmic lambda restricted plasma cell population detected, representing <1% of analyzed cells. Complete report is viewable in patient's EMR. Immunohistochemistry ([id number]) supports the above diagnosis and shows that a few plasma cells with the lambda monoclonality. Aspirate smears show 3% plasma cells. Significant increase of blasts is not seen. Cytogenetic studies are pending. Correlation with clinical, laboratory and radiologic findings and appropriate follow up are necessary. Case has been reviewed in consultation with Dr. Che who concurs with the above diagnosis. IDC:AM BONE MARROW STUDY Slides are reviewed. CBC DATE: 02/18/24 WBC 8.2; RBC 5.29; HGB 14.2; HCT 45.0; MCV 85.1; RDW 14.2; PLTS 251,000 SEGS 52.7%; LYMPHS 32.9%; MONOS 9.2%; EOS 3.5%; BASOS 0.6%, Immature granulocytes:1.1% PERIPHERAL SMEAR: Submitted. RBC: Normocytic and normochromic. WBC: Unremarkable. The WBC count is compatible to as reported above. PLTS: Adequate. BONE MARROW ASPIRATE DIFFERENTIAL: 200 cell count. -------- Patient Age/Sex Location Account Attending Physician -------- OTONIEL VICTORIA 53/M CT [id number] Dr. Otoniel Heaton, -------- Blasts % (normal 0-2): 1 Promyelocytes % (normal 1-5): 0 Myelocytes and metamyelocytes % (normal 17-41): 26 Bands and Segs % (normal 15-32): 30 Eos % (normal 1-6): 4 Basos % (normal 0-1): 1 Monocytes % (normal 0-4): 1 Erythroid Precursors % (normal 17-35): 27 Lymphocytes % (normal 7-13): 7 Plasma Cells % (normal 0-2): 3 ASPIRATE FINDINGS: Site: Not specified Paucispicular, Cellular M/E ratio: 2.2(Normal 1.5-4.0) Megakaryocytes: Present and normal morphology. Erythropoiesis: Normoblastic. Granulopoiesis: Progressive and unremarkable. Comment: A few mature plasma cells are noted. CORE BIOPSY FINDINGS: Site: Not specified Comment: This specimen consists of a small amount of blood clot with rare bone marrow spicules with trilineage hematopoiesis. Immunohistochemistry ([id number]) shows a few plasma cells with lambda monoclonality. Significant increase of blasts is not seen. ASPIRATE CLOT FINDINGS: Site: Not specified Marrow particles: Several Cellularity: 50% M/E ratio: Within normal limits. Megakaryocytes: Present and adequate in number. Granulomas: Absent. Lymphoid aggregates: Absent. Atypical infiltrates: Present. Comment: Immunohistochemistry ([id number]) shows a few plasma cells with lambda monoclonality. Significant increase of blasts is not seen. SPECIAL STAINS WITH MATCHED CONTROLS: Iron: Absent Reticulin: No significant increase of reticulin fibers is noted. PAS: Highlights myeloid cells and megakaryocytes. BONE MARROW GROSS A - Received is a container labeled with the patient's name and designated Bone marrow. The specimen consists of two fragments of blood clot and possible fragments of bone measuring in aggregate 0.5x0.1x0.1cm. The specimen is totally submitted in one cassette after decalcification. B - Received labeled with the patient's name and designated bone marrow is a specimen that consists of approximately 2 ml of bloody fluid that on filtration yields multiple minute fragments of blood clots measuring in aggregate 2.5 x 0.8 x 0.1 cm. The specimen is totally submitted in one cassette. -------- Patient Age/Sex Location Account Attending Physician -------- OTONIEL VICTORIA / CT [id number] Dr. Otoniel Heaton, -------- C - Also received are 16 unstained and 1 peripheral stained slide. The unstained slides are submitted for appropriate staining. Also received are 1 green top tube which are sent to our reference lab for flow and cytogenetics. LILI/ 02/18/2024 TC:5 (more content not included)... Normal [facility] Comment on above: Performed By: #### P DEC #### [facility] [address] [place], [place], [address] Determination of erythrocyte mean corpuscular volume (MCV)Ordered By: Jade Olsen on 02-18-2024 MCV (RBC) [Entitic vol] 85.1 fL 80-94 [facility] Erythrocyte distribution wid th ratioOrdered By: Jade Olsen on 02-18-2024 Erythrocyte distribution width (RBC) [Ratio] 14.2 % 11.6-14.6 [facility] Erythrocyte distribution wid th standard deviationOrdered By: Jade Olsen on 02-18-2024 Erythrocyte distribution width (RBC) [Entitic vol] 43.7 fL 35.1-43.9 [facility] Hematocrit Auto (Bld) [Volum e fraction]Ordered By: Jade Olsen on 02-18-2024 Hematocrit (Bld) [Volume fraction] 45.0 % 40-54 [facility] Immature granulocytes/100 WB C Auto (Bld)Ordered By: Jade Olsen on 02-18-2024 Immature granulocytes/100 WBC (Bld) 1.100 % 0.0-0.9 [facility] Comment on above: IG% - Immature Granu locytes (promyelocytes, myelocytes and metamyelocytes) > 1% indicates that a LEFT SHIFT is Present. Laboratory - Hematology and Cell countsOrdered By: Jade Olsen on 02-18-2024 MCH (RBC) [Entitic mass] 26.8 pg 27.0-32.0 [facility] MCHC (RBC) [Mass/Vol] 31.6 g/dL 32-36 [facility] Nucleated RBC/100 WBC (Bld) [Ratio] 0 % 0-5 [facility] Platelet mean volume (Bld) [Entitic vol] 10.8 fL 6.2-12.0 [facility] Platelets (Bld) [#/Vol] 251 10*3/uL 150-450 [facility] Procedure Reporton 4 Procedure Report [facility] Medical Records Department [address] [place] [address] Procedure Report 02/18/24 1143 MR#: [id number] Acct: [id number] Name: OTONIEL VICTORIA Rep #: [id number] : 1970 53 From: Jade Olsen BREAD WRAPPER OPERATOR-C PCP: Dr. Noman Dean, DO Status:REG CLI Location: CT Procedure Report Date of Procedure: 02/18/24 Assessment Plan Assessment/Plan (1) Smoldering myeloma: PLAN: PROCEDURE: CT guided bone marrow biopsy and aspiration of the right iliac bone ORDERING PROVIDER: Dr. Heaton INDICATION: Male, 53 years old. Smoldering myeloma. PROVIDER: Jade Olsen SET UP PERSON-TRIAL COURT JUSTICE RADIATION DOSAGE (If Supplied By Facility): CTDIvol = 22.71 mGy, DLP = 345.77 mGycm. Individualized dose optimization techniques were utilized. CONSENT: The risks, benefits, and alternatives to the procedure were explained to the patient. The specific risk of hemorrhage requiring further treatment or intervention was detailed and accepted. Follow-up instructions were discussed with the patient as well. Written informed consent was obtained. PRE-PROCEDURE SEDATION ASSESSMENT: Current history and physical dictated by referring physician and reviewed. No clinical changes since date of exam. Patient has an ASA Class of 2. PROCEDURAL SEDATION PROTOCOL: The Drugs used were: 2 mg Versed, IV, and 50 mcg Fentanyl, IV. The sedation time was: 30 minutes, starting at 9:54 AM and terminated at 10:24 AM. The procedural sedation protocol was independently monitored by the department nurse. TECHNIQUE The patient was brought into the CT suite and placed in the prone position. An appropriate entry site was identified. The overlying skin was prepped and draped in the usual sterile fashion. 2% l idocaine was administered subcutaneously for local anesthesia. Under CT guidance, a bone marrow biopsy and bone marrow aspirate were performed of the right iliac bone using an 11-gauge bone marrow biopsy kit. Hematology staff was present to prepare the specimen slides and transport the specimen to the laboratory for analysis. Hemostasis was obtained, and a sterile occlusive dressing was applied. The patient tolerated the procedure well without immediate complications. IMPRESSION: Successful CT guided bone marrow biopsy and aspiration of the right iliac bone as described. Procedural Sedation protocol utilized with independent monitoring by the department nurse. Procedures Radiology Radiology CT Procedures: [id number] Biopsy Bone Marrow 02/18/24 1145 Cosigner Signature (if applicable): CC: BREAD WRAPPER OPERATOR-C Jade Olsen; Dr. Noman Dean, DO; Dr. Otoniel Heaton, DO Signed Normal [facility] RBC Auto (Bld) [#/Vol]Ordere d By: Jade Olsen on 02-18-2024 RBC (Bld) [#/Vol] 5.29 10*6/uL 4.6-6.2 [facility] XR Foot - bilateral AP and L ateral and obliqueon 02-06-2024 IMPRESSION: Unremarkable radiographs Chemical Weigher: YOBANY Transcribe Date/Time: Feb 06 2024 1:21P Dictated by : DORA CRUZ MD This examination was interpreted and the report reviewed and electronically signed by: DORA CRUZ MD on Feb 06 2024 1:22PM [facility] DIVISION OF RADIOLOGY * * *Final Report* * * DATE OF EXAM: Feb 04 2024 1:12PM WOX 5555 - XR FOOT 3V AP/LAT/OBL APRIL / PROCEDURE REASON: multiple diagnoses * * * * Physician Interpretation * * * * Bilateral feet HISTORY: 53 years old Clinical information: Foot pain, bilateral Foot pain, bilateral for the past couple of months will get pain mid dorsal side of one foot with sharp pains and can't move foot for a few days and then will go to the other foot. no inj TECHNIQUE: Images: XR FOOT 3V AP/LAT/OBL APRIL Comparison: 12/27/2021. RESULT: Findings: No fracture or bone destruction. Joint spaces maintained. No calcaneal enthesophyte. No soft tissue calcification. DIVISION OF RADIOLOGY Provider, [facility] - 02/06/2024 * * *Final Report* * * DATE OF EXAM: Feb 04 2024 1:12PM WOX 5555 - XR FOOT 3V AP/LAT/OBL APRIL / PROCEDURE REASON: multiple diagnoses * * * * Physician Interpretation * * * * Bilateral feet HISTORY: 53 years old Clinical information: Foot pain, bilateral Foot pain, bilateral for the past couple of months will get pain mid dorsal side of one foot with sharp pains and can't move foot for a few days and then will go to the other foot. no inj TECHNIQUE: Images: XR FOOT 3V AP/LAT/OBL APRIL Comparison: 12/27/2021. RESULT: Findings: No fracture or bone destruction. Joint spaces maintained. No calcaneal enthesophyte. No soft tissue calcification. IMPRESSION IMPRESSION: Unremarkable radiographs Chemical Weigher: PSCB Transcribe Date/Time: Feb 06 2024 1:21P Dictated by : DORA CRUZ MD This examination was interpreted and the report reviewed and electronically signed by: DORA CRUZ MD on Feb 06 2024 1:22PM EST [facility] XR Foot - bilateral AP and L ateral and obliqueOrdered By: [facility] Provider on 02-06-2024 [facility] XR Foot - bilateral AP and L ateral and obliqueon 02-04-2024 Radiology Study observation (narrative) [facility] EGD Reporton 01-12-2024 EGD Report [facility] Medical Records Department [address] [place] [address] EGD Report MR#: [id number] Acct: [id number] Name: OTNOIEL VICTORIA Rep #: [id number] : 1970 53 From: Charly Parada DO PCP: Dr. Noman Dean DO Status:REG [facility] Patient Name: Otoniel Victoria Procedure Date: 01/12/2024 8:04 AM Date of : 1970 Age: 53 Procedure: Upper GI endoscopy Indications: Follow-up of Domingo's esophagus, Peptic ulcer Providers: Charly Parada DO Referring MD: Noman Dean Medicines: Monitored Anesthesia Care Patient Profile: This is a 53 year old male. Refer to note in patient chart for documentation of history and physical. Patient has symptoms of chronic heartburn and chronic nausea. Complications: No immediate complications. Procedure: Pre-Anesthesia Assessment: - Prior to the procedure, a History and Physical was performed, and patient medications and allergies were reviewed. The patient is competent. The risks and benefits of the procedure and the sedation options and risks were discussed with the patient. All questions were answered and informed consent was obtained. Patient identification and proposed procedure were verified by the physician in the pre-procedure area. Mental Status Examination: alert and oriented. Airway Examination: normal oropharyngeal airway and neck mobility. Respiratory Examination: clear to auscultation. CV Examination: normal. Prophylactic Antibiotics: The patient does not require prophylactic antibiotics. Prior Anticoagulants: The patient has taken no anticoagulant or antiplatelet agents. ASA Grade Assessment: II - A patient with mild systemic disease. After reviewing the risks and benefits, the patient was deemed in satisfactory condition to undergo the procedure. The anesthesia plan was to use monitored anesthesia care (MAC). Immediately prior to administration of medications, the patient was re-assessed for adequacy to receive sedatives. The heart rate, respiratory rate, oxygen saturations, blood pressure, adequacy of pulmonary ventilation, and response to care were monitored throughout the procedure. The physical status of the patient was re-assessed after the procedure. After obtaining informed consent, the endoscope was passed under direct vision. Throughout the procedure, the patient's blood pressure, pulse, and oxygen saturations were monitored continuously. The Endoscope was introduced through the mouth, and advanced to the second part of duodenum. The upper GI endoscopy was accomplished without difficulty. The patient tolerated the procedure well. Scope In: 8:11:55 AM Scope Out: 8:17:16 AM Total Procedure Duration Time 0 hours 5 minutes 21 seconds Findings: There were esophageal mucosal changes suggestive of short-segment Domingo's esophagus present in the lower third of the esophagus. The maximum longitudinal extent of these mucosal changes was 3 cm in length. Mucosa was biopsied with a cold forceps for histology in a targeted manner at intervals of 1 cm in the lower third of the esophagus. One specimen bottle was sent to pathology. Verification of patient identification for the specimen was done. Estimated blood loss was minimal. One non-bleeding linear gastric ulcer with no stigmata of bleeding was found in the prepyloric region of the stomach. The lesion was 3 mm in largest dimension. Biopsies were taken with a cold forceps for histology. Verification of patient identification for the specimen was done. Estimated blood loss was minimal. Biopsies were taken with a cold forceps for Helicobacter pylori testing. Verification of patient identification for the specimen was done. Estimated blood loss was minimal. No gross lesions were noted in the first portion of the duodenum. Impression: - Esophageal mucosal changes suggestive of short-segment Domingo's esophagus. Biopsied. - Non-bleeding gastric ulcer with no stigmata of bleeding. Biopsied. - No gross lesions in the first portion of the duodenum. Recommendation: - Discharge patient to home. - Resume previous diet. - Continue present medications. - Await pathology results. - Repeat upper endoscopy in 1 year for surveillance. Procedure Code(s): --- Professional --- 62973, Esophagogastroduodenoscopy, flexible, transoral; with biopsy, single or multiple CPT copyright 2021 [employer] [place] [employer]. All rights reserved. The codes documented in this report are preliminary and upon physical aerodynamicist review may be revised to meet current compliance requirements. Charly Parada DO 01/12/2024 8:24:41 AM This report has been signed electronically. Number of Addenda: 0 Note Initiated On: 01/12/2024 8:04 AM 01/12/24823 Date Charly Parada DO Cosigner Signature: Date (more content not included)... Normal [facility] H Pylori (initial)on 024 H Pylori (initial) Patient Age/Sex Loca tion Account Attending Physician OTONIEL VICTORIA 53/M EN [id number] Charly Parada DO Specimen: [id number] Received: 01/12/24-1499 Status: DESIRE Alanis Num: [id number] Spec Type: IMMUNO Subm Dr: Charly Parada DO PHYSICIAN INSTITUTION [place] [address] SPECIMEN INFORMATION: Tissue Source: A - Gastric ulcer Clinical Info: Epigastric abdominal pain, dysphagia, chronic constipation Specimen Number: [id number] CPT code: 56766 METHODOLOGY: Deparaffinized sections of prefer/formalin-fixed tissue or PAP/DQ stained slides are incubated with monoclonal/polyclonal antibodies/oligonucleotide probes. Localization is made via biotin free immunoperoxidase method. Appropriate controls are performed and reacted as expected. Results on target cell population are indicated in the following table: RESULTS: ANTIBODY / CLONE RESULT Block A H Pylori (polyclonal) negative These tests were developed and their performance characteristics determined by [facility]. They may not have been cleared or approved by the U.S. Food and Drug Administration. The FDA has determined that such clearance or approval is not necessary. The above immunohistochemical/dualISH markers are ordered and reviewed by the Pathologist. INTERPRETATION: A. Gastric ulcer, biopsy: Negative for Helicobacter pylori organisms. AM:christiana 01/13/2024 Signed (signature on file) Dr. Emiliano Che DO 01/13/24 1256 -------- Normal [facility] Comment on above: Performed By: #### P H.PYLORI #### [facility] [address] [place], [place], [address] Special Stain Group IIon Special Stain Group II Patient Age/Sex Location Account Attending Physician OTONIEL VICTORIA 53/M EN [id number] Charly Parada DO Specimen: [id number] Received: 01/12/24 Status: DESIRE Alanis Num: [id number] Spec Type: EGD BIOPSY Subm Dr: Charly Parada DO HEADER OPERATION: EGD, biopsy PRE-OP DIAGNOSIS: Epigastric abdominal pain, dysphagia, chronic constipation TISSUE SUBMITTED: A - Gastric ulcer biopsy, B - Distal esophagus biopsy -------- MICROSCOPIC DIAGNOSIS A. Gastric ulcer, biopsy: Mild chronic inflammation. Focal denudation of mucosa. See comment. B. Distal esophagus, biopsy: Fragments of gastric mucosa with mild chronic inflammation. No evidence of goblet cell metaplasia. See comment. AM:christiana 01/13/2024 COMMENT A. The results of immunohistochemistry for Helicobacter pylori will be reported separately ([id number]). B. Alcian blue/PAS stain with matched control supports the above diagnosis. MICROSCOPIC DESCRIPTION Slides are reviewed. GROSS DESCRIPTION A - Received in fixative is one container labeled with the patient's name and designated gastric ulcer biopsy. The specimen consists of two irregular fragments of light william soft tissue that in aggregate measure 0.6 x 0.3 x 0.1 cm. The specimen is totally submitted in one cassette. B - Received in fixative is one container labeled with the patient's name and designated distal esophagus biopsy. The specimen consists of multiple irregular fragments of light william soft tissue that in aggregate measure 1.0 x 0.3 x 0.1 cm. The specimen is totally submitted in one cassette. / SJ:rg 01/12/2024 TC:3 CPT: 47695 x2, 45065 -------- Patient Age/Sex Location Account Attending Physician -------- OTONIEL VICTORIA/Berny GARCIA [id number] Charly Parada DO -------- Signed (signature on file) Dr. Emiliano Che, 01/13/24 1226 -------- Normal [facility] Comment on above: Performed By: #### P SSII #### [facility] [address] [place], [address] Gastric Emptying Studyon Gastric Emptying Study [facility] Imaging Services [address] [place] [address] Gastric Emptying Study MR#: [id number] Acct: [id number] Name: OTONIEL VICTORIA Rep #: [id number] : 1970 M 53 From: Ulysses Padilla PCP: Dr. Noman Dean DO Status: REG CLI Study: Gastric Emptying Study Date of Exam: 01/07/24 Exam# [id number] Ordering Dr: Charly Parada DO :[id number] CLINICAL: 53-year-old male with history of epigastric pain. SEMI-SOLID PHASE 99m Tc SULFUR COLLOID GASTRIC EMPTYING STUDY COMPARISON: None available FINDINGS: The patient was administered 1.0 mCi of 99m Tc sulfur colloid mixed with oatmeal and consumed per os. Image acquisitions in the anterior-posterior projections were obtained for 60 minutes. There is prompt visualization of the stomach. There is no gastroesophageal reflux identified. The T ? raw data emptying was calculated to be 43.84 minutes, (Normal: 12-56 minutes). NM/Gastric Emptying Study IMPRESSION: 1. NORMAL 99m Tc sulfur colloid semi-solid phase (oatmeal) gastric emptying imaging examination. A. There is normal and preserved semi-solid phase gastric emptying compared to normal controls. (Edwin, J Nucl Med Tech 38: 186, 2010). Electronically Signed: Ulysses Pradhan DO at 9:29 EST , CC: Dr. Noman Dean DO; Charly Parada DO Chemical Weigher: Signed Normal [facility] Gastroenterology Visit Repor ton 10-30-2023 Gastroenterology Visit Report [facility] Gastroenterology [address] [place] [address] OFFICE VISIT Date of Service: 10/30/23 MR#: [id number] Acct: [id number] Name: OTONIEL VICTORIA Rep #: [id number] : 1970 Provider: Charly Parada DO Age/Sex: 53/M Location: [facility] Status: Signed Intake Vital Signs 05/15/23 06:50 Height 6 ft 2 in Intake Visit Reasons: 4 MO FU Allergies shellfish derived Allergy (Mild, Verified 06/02/23 13:49) unknown Environmental Allergies: Uncoded Allergy (Verified 06/02/23 13:49) Itching Penicillins [PCN] Allergy (Verified 06/02/23 13:49) Rash topiramate [From Topamax] Allergy (Verified 06/02/23 13:49) Hives aspirin Adverse Reaction (Verified 06/02/23 13:49) Nausea PFSH Medical History Anxiety Arrhythmia Arthritis Back pain Cancer Cardiology follow-up encounter Chest pain COPD (chronic obstructive pulmonary disease) Depression DVT (deep venous thrombosis) Dyspnea Excessive bleeding GERD (gastroesophageal reflux disease) High cholesterol History of echocardiogram History of irregular heartbeat History of leukemia History of pain when walking History of steroid therapy History of ulceration HLD (hyperlipidemia) Hypertension Migraine headache Rheumatoid arthritis Smoker Syncope Wears dentures Wears glasses Surgical History History of dental surgery History of tonsillectomy Hx of elbow surgery Hx of surgical procedure Hx of surgical procedure Family History Mother Heart disease Father Prostate cancer Sister Lung cancer Social History Smoking Status: Current every day smoker tobacco type: cigarettes alcohol intake: never HPI HPI Details: OTONIEL VICTORIA, is a 53 M who presents to the office today for Pulmonary OV noting dysphagia. [facility] workup: ? EGD [facility] 1..21 duodenal inflammation with erosions, friability and granularity; gastric ulcerations with severe inflammation. ? EGD [facility] 3.18.21 gastric ulcerations. ? EGD [facility] 6..21 gastritis. ? EGD [facility] 08.13.22 without visual abnormality. *I established 03.25.23 with history as above. Contact 05.14.23 start Linzess 72mcg. 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 Biochemical AMA, ASM, hepatitis without pertinent abnormality. RAST seafood H; low: scallop and shrimp. IgG L502; BRANDT lambda light chain specificity, unable to determine MSpike; pANCA H1:20; dbl Strand DNA H11 Contact 05.23.23 with bloodwork results; he is established with [facility] for leukemia. Results forwarded to Dr. Heaton. OV 7.02.20 increase Linzess to 290mcg. Reports he is able to take PPI with cancer treatment (there has been some confusion regarding PPI use with cancer treatment) OV 11.30.23 PO intake causes upset stomach with burning/bloating. Cancer treatment has changed from Sprycel to Scemblix; he is currently taking omeprazole 40mg QD and Linzess 290mcg. BM every couple of days with complete evacuation and no difficulty with movement. ROS Const Constitutional: No anorexia, fatigue, fever(s), weight change or sleep problems Eyes Eyes: No change in vision ENT ENT: No abnormal hearing, difficulty swallowing, mouth lesions, tongue swelling or throat swelling Resp Respiratory: No cough or shortness of breath Cardio Cardiology: No chest pain at rest, chest pain with exertion, shortness of breath or dyspnea on exertion Gastro GI: No difficulty swallowing Genitourinary Male: No difficulty urinating or burning urination Musc Musculoskeletal: No joint pain, joint swelling, muscle weakness or decreased muscle mass Skin Skin: No hair loss in leg, yellowing of the eye, itchy eyes, rash, skin ulcer or skin swelling Neuro Neurology: No abnormal hearing, abnormal movements, confusion, unsteady gait/balance or memory loss Psych Psychiatric: No anxiety, No confusion and No memory loss Endo Endocrine: No fatigue or weight change Aller/Imm Allergy/Immunologic: No itchy eyes, throat swelling or tongue swelling Troy/Lymp Hematologic/Lymphatic: No easy bleeding, easy bruising or enlarged lymph nodes Exam Const General: cooperative, healthy appearing and comfortable Nutritional Appearance: average body h (more content not included)... Normal [facility] BRAIN & CERVICAL SPINE MRI D [facility] DATAon 03-18-2023 Brain Enhancing Lesions None [facility] Brain Interval Improvement None [facility] Brain New T2 Lesions None Site [facility] Brain Other Significant MRI Findings None. [facility] Brain Parenchymal Volume Loss None [facility] Brain T2 [place] of Disease Mild [facility] MRI BRAIN WO/W IVCONon 03-[address] [facility] [address] CHEST WO IVCONon 11-18-20 [facility] ANES POSTPROC EVALon 022 ANES POSTPROC EVAL HNO ID: [id number] Author: Mal Smith MD Service: ? Author Type: Anesthesiologist Type: Anesthesia Postprocedure Evaluation Filed: 10/30/2022 2:29 PM Note Text: POST ANESTHESIA EVALUATION NOTE : 1970 Procedure Summary Date: 10/30/22 Room / Location: [place] OR02 / [place] OR Anesthesia Start: 1237 Anesthesia Stop: 1334 Procedure: RELEASE LATERAL EPICONDYLE OLECRANON (Right: Elbow) Diagnosis: Right lateral epicondylitis (Right lateral epicondylitis [M77.11]) Surgeons: Jersey Cole MD Responsible Provider: Mal Smith MD Anesthesia Type: MAC ASA Status: 3 Anesthesia Type: MAC Last Vitals Vitals Value Taken Time BP 135/81 10/30/22 1400 Temp 36.7 ?C (98.1 ?F) 10/30/22 1330 HR SpO2 67 10/30/22 1330 Resp 23 10/30/22 1400 SpO2 95 % 10/30/22 1400 Post Anesthesia Patient Status Patient Evaluation: bedside. Anticipated Disposition: phase 2 then home. Neurological Status: aware and responsive. Pulmonary Status: breathing comfortably on room air Airway Control: returned to baseline unsupported. Cardiovascular Status: stable. Pain Management: clinically adequate Postoperative Hydration: acceptable. Intraoperative Events: no significant anesthesia events Post Operative Nausea/Vomiting Status: no significant post operative nausea or vomiting Recommendation: continue current plan of care. Anesthesia Observations No Documentation SIGNATURE: Mal Smith MD PATIENT NAME: Otoniel Victoria DATE: October 30, 2022 TIME: 2:28 PM CSN: [id number] [facility] ANES PRE-OPon 10-30-2022 ANES PRE-OP HNO ID: [id number] Author: Ivonne Hanley MD Service: Anesthesiology Author Type: Anesthesiologist Type: Anesthesia Preprocedure Evaluation Filed: 10/30/2022 12:19 PM Note Text: ANESTHESIOLOGY DAY OF SURGERY NOTE : 1970 Procedure Information Date/Time: 10/30/22 1143 Procedure: RELEASE LATERAL EPICONDYLE OLECRANON (Right: Elbow) Location: [place] OR / [place] OR Surgeons: Jersey Cole MD Estimated body mass index is 25.29 kg/m? as calculated from the following: Height as of 10/23/22: 188 cm (6' 2). Weight as of 10/23/22: 89.4 kg (197 lb). Most recent hematocrit and potassium results: Hematocrit 43.7 09/02/2022 Potassium 4.3 09/02/2022 Relevant Problems CARDIO (+) Essential hypertension, benign (+) Migraine (+) Ocular migraine GI (+) Gastroesophageal reflux disease without esophagitis -RENAL (+) Fatty liver NEURO-PSYCH (+) Migraine (+) Ocular migraine (+) Personal history of colonic polyps PULMONARY (+) Chronic obstructive pulmonary disease (HCC) Other (+) Arthritis of left knee (+) CML (chronic myeloid leukemia) (HCC) (+) Lateral epicondylitis of both elbows (+) Splenomegaly (+) Suprapatellar bursitis of left knee I - PHYSICAL EVALUATION AIRWAY Patient intubated: No. Tracheostomy tube not present Mallampati: II. TM distance: >3 FB. Neck ROM: full ROM without neurological symptoms. Mouth opening: adequate. Short neck: no. Thick neck: no Martinez present: no DENTAL Dental findings: edentulous. Additional exam findings: no II - ANESTHESIA PLAN ASA Score: 3 Anesthetic Plan: MAC The patient is not a current smoker. NPO Status: adequate Beta Zeny Monitoring Plan Monitoring plan: standard ASA. Post Procedure Analgesic Plan Postoperative analgesic plan: multimodal analgesia. Patient / Surrogate agrees to blood products: blood products not planned DNR status not reviewed with patient and/or family prior to surgery. Significant changes in the patient condition since the History and Physical, not otherwise documented in primary service progress note: no. Potential Anesthesia issues that may suggest increased risk of complications or contraindication to planned procedure: none. Vitals Value Taken Time BP Pulse 60 10/30/22 1121 Resp 18 10/30/22 1121 Temp 37 ?C (98.6 ?F) 10/30/22 1121 SpO2 97 % 10/30/22 1121 Facility-Administered Medications as of 10/30/2022 Medication Dose Route Frequency - lidocaine 10 mg/mL (1 %) 1-2 mg injection (XYLOCAINE) 0.1-0.2 mL INTRADERMAL PRN - lactated ringers iv infusion 5-30 mL/hr INTRAVENOUS CONTINUOUS - NaCl 0.9% iv flush bag 20 mL INTRAVENOUS PRN - ceFAZolin iv piggyback 2 g in D5W (iso-osmotic) 100 mL (ANCEF) 2 g INTRAVENOUS Pre-Op Once - [COMPLETED] acetaminophen 650 mg tab(s) (TYLENOL) 650 mg ORAL Pre-Op Once Outpatient Medications as of 10/30/2022 Medication Sig - linaCLOtide (LINZESS) 72 mcg capsule Take first thing in the morning, 30 minutes before eating anything.Swallow whole; DO NOT crush or chew. - diclofenac (VOLTAREN) 1 % topical gel apply 2 grams TO AFFTECTED AREA three times a day - oxybutynin ER (DITROPAN XL) 15 mg 24 hr Extended Rel Tab take 1 tablet by mouth once daily - atenolol (TENORMIN) 25 mg tablet take 1 tablet by mouth once daily - sucralfate (CARAFATE) 1 gram tablet Take 1 tablet by mouth three times daily. - gemfibrozil (LOPID) 600 mg tablet Take 1 tablet by mouth twice daily. - Cholecalciferol, Vitamin D3, (VITAMIN D-3) 50 mcg (2,000 unit) cap Take 1 capsule by mouth once daily. - lactobacillus rhamnosus (CULTURELLE) 15 billion cell capsule Take 1 capsule by mouth once daily. - ARIPiprazole (ABILIFY) 5 mg tablet Take 1 tablet by mouth once daily. - vilazodone (VIIBRYD) 40 mg tablet Take 40 mg by mouth once daily. - dasatinib (SPRYCEL) 80 mg tablet Take 1 tablet (80mg) by mouth once daily. - ANORO ELLIPTA 62.5-25 mcg/actuation inhaler inhale 1 puff by mouth and INTO THE LUNGS once daily - omeprazole (PRILOSEC) 40 mg capsule take 1 capsule by mouth once daily - albuterol HFA (VENTOLIN HFA) 90 mcg/actuation inhaler INHALE 2 PUFFS INSTRUCTED EVERY FOUR HOURS NEEDED FOR WHEEZING / SHORTNESS OF BREATH - gabapentin (NEURONTIN) 600 mg tablet TAKE 1 TABLET BY MOUTH THREE TIMES A DAY - dicyclomine (BENTYL) 20 mg tablet Take 1 tablet by mouth three times daily. - lamoTRIgine (LAMICTAL) 200 mg tablet Take 1 tablet by mouth once daily. I have interviewed and examined the patient. I have reviewed the medical record and/or the pre-anesthesia evaluation, pertinent labs, and test results. This contains updated information obtained within 48 hours of Surgery/Procedure. SIGNATURE: Ivonne Hanley MD PATIENT NAME: Otoniel Victoria DATE: October 30, 2022 TIME: 12:18 PM CSN: [id number] [facility] OPERATIVE NOon 10-30-2022 OPERATIVE NO HNO ID: [id number] Author: Jersey Cole MD Service: Orthopaedic Surgery Author Type: Physician Type: Operative Report Filed: 10/30/2022 1:46 PM Note Text: OPERATIVE/PROCEDURE REPORT LOG ID: [id number] SURGERY/PROCEDURE DATE: 10/30/2022 INCISION/PROCEDURE START TIME: 12:55 PM INCISION CLOSE/PROCEDURE END TIME: 1:21 PM SURGEON(S)/PROCEDURALIST(S) AND VISUAL MERCHANDISING SPECIALIST(S): Surgeon(s) and Role: * Jersey Cole MD - Primary Physician House Parent: Isatu Amaya PA-C Registered Nurse Division Controller: Velvet Plata RN SURGERY/PROCEDURE(S): Right elbow, lateral epicondyle/tendon debridement. -79 ANESTHESIA: Monitored Anesthesia Care with local SURGERY/PROCEDURE DETAILS: Is a patient who has been dealing with lateral elbow pain for quite some time. He attempted nonoperative management including but not limited to stretching, icing, NSAIDs, bracing, cortisone injection, all without complete resolution. He persisted with pain and functional limitations with the elbow. He underwent successful procedure on the left, in August, thus still in a [employer] for that procedure. We reviewed surgical and even percutaneous tenotomy which he did not wish to try. He wished to pursue surgery and after discussing the risks, benefits, alternatives and potential complications involving all of these options he wished to schedule surgery. On 10/30/2022, the patient was clearly identified in the preoperative area marked accordingly on the right elbow by myself. Anesthesia assumed care of the head and neck for the remainder the case. All other bony landmarks were properly padded in standard fashion. The upper extremity had a well-padded upper brachium tourniquet applied with cotton padding and set at 250 mmHg. The upper extremity was then exsanguinated with an Esmarch bandage and the tourniquet was applied at 250 mmHg. The bony landmarks were palpated over the lateral epicondyle and a longitudinal incision was marked out and the area was infiltrated with 1% lidocaine with 1-200,000 epinephrine for a total of 5 cc. Incision was made superficially through the dermis with a 15 blade at the elbow over the lateral epicondyle. Blunt dissection was taken down with tenotomy scissors down to the lateral common extensors. The supracondylar ridge was palpated and the fascia of the common extensors was divided between the ECRL and EDB, below the equator of the radial head. Once these were retracted, the ECRB was identified and noted to have some degenerative characteristics with almost a grayish myxoid appearance. This portion of the tendon was excised down to the bone. A Nirschl scratch test was completed with a 15 blade to rough up the exposed surface of the lateral epicondyle. The wound and elbow joint was copiously irrigated at this point and I closed the fascia back down, repairing the ECRL to the EDC. This was done with an 0 Vicryl in a running locked suture. A watertight closure was done at this layer. The dermis was closely approximated with a 3-0, interrupted Monocryl suture. Final skin closure was completed with a running subcuticular stitch with Steri's. Xeroform gauze, sterile 4 x 4's and a cotton padding and Garo bandage were used for soft bandage. There were no complications during the procedure. Patient was safely awoken and transferred to the postanesthetic care unit stable condition. PRE-OP/PRE-PROCEDURE DIAGNOSIS: Right elbow, extensor tendinitis; tennis elbow POST-OP/POST-PROCEDURE DIAGNOSIS: Same as Preop ESTIMATED BLOOD LOSS: 0 ml SPECIMENS: None IMPLANTABLE DEVICES: None DRAINS: None COMPLICATIONS: None PARTICIPATION IN SURGERY/PROCEDURE: I/primary surgeon/proceduralist performed the entire procedure. SIGNATURE: Jersey Cole MD PATIENT NAME: Otoniel Victoria DATE: October 30, 2022 TIME: 1:41 PM Normal [facility] CBC W Auto Differential pane l (Bld)on 09-02-2022 Abs Immature Gran <0.10 k/uL [facility] Basophils (Bld) [#/Vol] <0.11 k/uL [facility] Basophils/100 WBC (Bld) 0.2 % [facility] Differential cell count method Nom (Bld) Auto [facility] Eosinophils (Bld) [#/Vol] 0.18 10*3/uL <0.46 k/uL [facility] Eosinophils/100 WBC (Bld) 3.0 % [facility] Erythrocyte distribution width (RBC) [Ratio] 14.1 % 11.5 - 15.0 % [facility] Hematocrit (Bld) [Volume fraction] 43.7 % 39.0 - 51.0 % [facility] Hemoglobin (Bld) [Mass/Vol] 14.0 g/dL 13.0 - 17.0 g/dL [facility] Immature Gran % 0.3 % [facility] Lymphocytes (Bld) [#/Vol] 2.21 10*3/uL 1.00 - 4.00 k/uL [facility] Lymphocytes/100 WBC (Bld) 36.3 % [facility] MCH (RBC) [Entitic mass] 28.3 pg 26.0 - 34.0 pg [facility] MCHC (RBC) [Mass/Vol] 32.0 g/dL 30.5 - 36.0 g/dL [facility] MCV (RBC) [Entitic vol] 88.3 fL 80.0 - 100.0 fL [facility] Monocytes (Bld) [#/Vol] 0.46 10*3/uL <0.87 k/uL [facility] Monocytes/100 WBC (Bld) 7.6 % [facility] Neutrophils (Bld) [#/Vol] 3.20 10*3/uL 1.45 - 7.50 k/uL [facility] Neutrophils/100 WBC (Bld) 52.6 % [facility] Nucleated RBC (Bld) [#/Vol] <0.01 k/uL [facility] Nucleated RBC/100 WBC (Bld) [Ratio] 0.0 /100 WBC [facility] Platelet mean volume (Bld) [Entitic vol] 10.8 fL 9.0 - 12.7 fL [facility] Platelets (Bld) [#/Vol] 205 10*3/uL 150 - 400 k/uL [facility] RBC (Bld) [#/Vol] 4.95 10*6/uL 4.20 - 6.0 0 m/uL [facility] WBC (Bld) [#/Vol] 6.08 10*3/uL 3.70 - 11.00 k/uL [facility] Comprehensive metabolic 2000 panelon 09-02-2022 Albumin [Mass/Vol] 4.8 g/dL 3.9 - 4.9 g/dL [facility] ALP [Catalytic activity/Vol] 112 U/L 38 - 113 U/L [facility] ALT [Catalytic activity/Vol] 11 U/L 10 - 54 U/L [facility] Anion gap [Moles/Vol] 10 mmol/L 9 - 18 mmol/L [facility] AST [Catalytic activity/Vol] 17 U/L 14 - 40 U/L [facility] Bilirubin [Mass/Vol] 0.4 mg/dL 0.2 - 1 .3 mg/dL [facility] Calcium [Mass/Vol] 9.4 mg/dL 8.5 - 10. 2 mg/dL [facility] Chloride [Moles/Vol] 103 mmol/L 97 - 10 5 mmol/L [facility] CO2 [Moles/Vol] 24 mmol/L 22 - 30 mmol/L [facility] Creatinine [Mass/Vol] 0.99 mg/dL 0.73 - 1.22 mg/dL [facility] Estimated Glomerular Filtration Rate 92 mL/min/1.73m >=60 mL/min/1.73 m [facility] Glucose [Mass/Vol] 84 mg/dL 74 - 99 mg/dL [facility] Potassium [Moles/Vol] 4.3 mmol/L 3.7 - 5.1 mmol/L [facility] Protein [Mass/Vol] 7.0 g/dL 6.3 - 8.0 g/dL [facility] Sodium [Moles/Vol] 137 mmol/L 136 - 144 mmol/L [facility] Urea nitrogen [Mass/Vol] 20 mg/dL 9 - 24 mg/dL [facility] DXA-AXIAL SKELETONon [facility] PHOSPHORUS INORGANICon 09-02 Phosphate [Mass/Vol] 3.3 mg/dL 2.7 - 4 .8 mg/dL [facility] ANES POSTPROC EVALon ANES POSTPROC EVAL HNO ID: [id number] Author: Wesly Tirado MD Service: Anesthesiology Author Type: Anesthesiologist Type: Anesthesia Postprocedure Evaluation Filed: 08/23/2022 1:21 PM Note Text: POST ANESTHESIA EVALUATION NOTE : 1970 Procedure Summary Date: 08/23/22 Room / Location: [place] [address] / [place] Anesthesia Start: 1058 Anesthesia Stop: 1150 Procedure: RELEASE LATERAL EPICONDYLE OLECRANON (Left: Elbow) Diagnosis: Lateral epicondylitis of left elbow (Lateral epicondylitis of left elbow [M77.12]) Surgeons: Jersey Cole MD Responsible Provider: Wesly Tirado MD Anesthesia Type: MAC ASA Status: 3 Anesthesia Type: MAC Last Vitals Vitals Value Taken Time BP 124/63 08/23/22 1215 Temp 36 ?C (96.8 ?F) 08/23/22 1215 Pulse 48 08/23/22 1225 Resp 20 08/23/22 1225 SpO2 100 % 08/23/22 1225 Vitals shown include unvalidated device data. Post Anesthesia Patient Status Patient Evaluation: PACU. PACU/ICU Patient Condition: stable. Anticipated Disposition: phase 2 then home. Neurological Status: aware and responsive. Pulmonary Status: breathing comfortably on room air Airway Control: returned to baseline unsupported. Cardiovascular Status: stable. Pain Management: clinically adequate - multimodal analgesia pain management approach Postoperative Hydration: acceptable. Intraoperative Events: no significant anesthesia events Recommendation: continue current plan of care. Anesthesia Observations No Documentation SIGNATURE: Wesly Tirado MD PATIENT NAME: Otoniel Victoria DATE: August 23, 2022 TIME: 1:21 PM CSN: [id number] [facility] ANES PRE-OPon 08-23-2022 ANES PRE-OP HNO ID: [id number] Author: Wesly Tirado MD Service: Anesthesiology Author Type: Anesthesiologist Type: Anesthesia Preprocedure Evaluation Filed: 08/23/2022 10:04 AM Note Text: ANESTHESIOLOGY DAY OF SURGERY NOTE : 1970 Procedure Information Date/Time: 08/23/22 1010 Procedure: RELEASE LATERAL EPICONDYLE OLECRANON (Left: Elbow) Location: [place] [place] Surgeons: Jersey Cole MD Estimated body mass index is 23.75 kg/m? as calculated from the following: Height as of this encounter: 188 cm (6' 2). Weight as of this encounter: 83.9 kg (185 lb). Most recent hematocrit and potassium results: Hematocrit 39.9 05/17/2022 Potassium 4.2 08/13/2022 Relevant Problems CARDIO (+) Essential hypertension, benign (+) Migraine (+) Ocular migraine GI (+) Gastroesophageal reflux disease without esophagitis -RENAL (+) Fatty liver NEURO-PSYCH (+) Migraine (+) Ocular migraine (+) Personal history of colonic polyps PULMONARY (+) Chronic obstructive pulmonary disease (HCC) Other (+) Arthritis of left knee (+) CML (chronic myeloid leukemia) (HCC) (+) Lateral epicondylitis of both elbows (+) Splenomegaly (+) Suprapatellar bursitis of left knee I - PHYSICAL EVALUATION AIRWAY Patient intubated: No. Tracheostomy tube not present Mallampati: II. TM distance: >3 FB. Neck ROM: full ROM without neurological symptoms. Mouth opening: adequate. Short neck: no. Thick neck: no DENTAL Dental findings: poor dentition. Additional exam findings: no II - ANESTHESIA PLAN ASA Score: 3 Anesthetic Plan: MAC NPO Status: adequate Monitoring plan: standard ASA. Postoperative analgesic plan: parenteral or oral opioids and multimodal analgesia. Patient / Surrogate agrees to blood products: blood products not planned Significant changes in the patient condition since the History and Physical, not otherwise documented in primary service progress note: no. Vitals Value Taken Time BP 112/75 08/23/22 0936 Pulse Resp 18 08/23/22 0936 Temp 36.4 ?C (97.5 ?F) 08/23/22 0936 SpO2 100 % 08/23/22 0936 Facility-Administered Medications as of 08/23/2022 Medication Dose Route Frequency - lidocaine 10 mg/mL (1 %) 1-2 mg injection (XYLOCAINE) 0.1-0.2 mL INTRADERMAL PRN - lactated ringers iv infusion 5-30 mL/hr INTRAVENOUS CONTINUOUS - clindamycin iv piggyback 600 mg in D5W 50 mL (CLEOCIN) 600 mg INTRAVENOUS Pre-Op Once Outpatient Medications as of 08/23/2022 Medication Sig - diclofenac (VOLTAREN) 1 % topical gel apply 2 grams TO AFFTECTED AREA three times a day - oxybutynin ER (DITROPAN XL) 15 mg 24 hr Extended Rel Tab take 1 tablet by mouth once daily - dasatinib (SPRYCEL) 80 mg tablet Take 1 tablet (80mg) by mouth once daily. - omeprazole (PRILOSEC) 40 mg capsule take 1 capsule by mouth once daily - atenolol (TENORMIN) 25 mg tablet take 1 tablet by mouth once daily - linaCLOtide (LINZESS) 72 mcg capsule Take first thing in the morning, 30 minutes before eating anything.Swallow whole; DO NOT crush or chew. - sucralfate (CARAFATE) 1 gram tablet Take 1 tablet by mouth three times daily. - gabapentin (NEURONTIN) 600 mg tablet TAKE 1 TABLET BY MOUTH THREE TIMES A DAY - gemfibrozil (LOPID) 600 mg tablet Take 1 tablet by mouth twice daily. - dicyclomine (BENTYL) 20 mg tablet Take 1 tablet by mouth three times daily. - Cholecalciferol, Vitamin D3, (VITAMIN D-3) 50 mcg (2,000 unit) cap Take 1 capsule by mouth once daily. - lactobacillus rhamnosus (CULTURELLE) 15 billion cell capsule Take 1 capsule by mouth once daily. - lamoTRIgine (LAMICTAL) 200 mg tablet Take 1 tablet by mouth once daily. - ARIPiprazole (ABILIFY) 5 mg tablet Take 1 tablet by mouth once daily. - vilazodone (VIIBRYD) 40 mg tablet Take 40 mg by mouth once daily. - ANORO ELLIPTA 62.5-25 mcg/actuation inhaler inhale 1 puff by mouth and INTO THE LUNGS once daily - albuterol HFA (VENTOLIN HFA) 90 mcg/actuation inhaler INHALE 2 PUFFS INSTRUCTED EVERY FOUR HOURS NEEDED FOR WHEEZING / SHORTNESS OF BREATH I have interviewed and examined the patient. I have reviewed the medical record and/or the pre-anesthesia evaluation, pertinent labs, and test results. This contains updated information obtained within 48 hours of Surgery/Procedure. SIGNATURE: Wesly Tirado MD PATIENT NAME: Otoniel Victoria DATE: August 23, 2022 TIME: 10:03 AM CSN: [id number] [facility] OPERATIVE NOon 08-23-2022 OPERATIVE NO HNO ID: [id number] Author: Jersey Cole MD Service: Orthopaedic Surgery Author Type: Physician Type: Operative Report Filed: 08/28/2022 3:29 PM Note Text: OPERATIVE/PROCEDURE REPORT LOG ID: [id number] SURGERY/PROCEDURE DATE: 08/23/2022 INCISION/PROCEDURE START TIME: 11:15 AM INCISION CLOSE/PROCEDURE END TIME: 11:42 AM SURGEON(S)/PROCEDURALIST(S) AND VISUAL MERCHANDISING SPECIALIST(S): Surgeon(s) and Role: * Jersey Cole MD - Primary Physician House Parent: Isatu Amaya PA-C SURGERY/PROCEDURE(S): Left elbow, lateral epicondyle/tendon debridement. ANESTHESIA: Monitored Anesthesia Care with local SURGERY/PROCEDURE DETAILS: Is a patient who has been dealing with lateral elbow pain for quite some time. He attempted nonoperative management including but not limited to stretching, icing, NSAIDs, bracing, cortisone injection, all without complete resolution. He persisted with pain and functional limitations with the elbow. We reviewed surgical and even percutaneous tenotomy which he did not wish to try. He wished to pursue surgery and after discussing the risks, benefits, alternatives and potential complications involving all of these options he wished to schedule surgery. On 08/23/2022, the patient was clearly identified in the preoperative area marked accordingly on the left elbow by myself. Anesthesia assumed care of the head and neck for the remainder the case. All other bony landmarks were properly padded in standard fashion. The upper extremity had a well-padded upper brachium tourniquet applied with cotton padding and set at 250 mmHg. The upper extremity was then exsanguinated with an Esmarch bandage and the tourniquet was applied at 250 mmHg. The bony landmarks were palpated over the lateral epicondyle and a longitudinal incision was marked out and the area was infiltrated with 1% lidocaine with 1-200,000 epinephrine for a total of 5 cc. Incision was made superficially through the dermis with a 15 blade at the elbow over the lateral epicondyle. Blunt dissection was taken down with tenotomy scissors down to the lateral common extensors. The supracondylar ridge was palpated and the fascia of the common extensors was divided between the ECRL and EDB. Once these were retracted, the ECRB was identified and noted to have some degenerative characteristics with almost a grayish myxoid appearance. This portion of the tendon was excised down to the bone. A Nirschl scratch test was completed with a 15 blade to rough up the exposed surface of the lateral epicondyle. The wound and elbow joint was copiously irrigated at this point and I closed the fascia back down, repairing the ECRL to the EDC. This was done with an 0 Vicryl in a running locked suture. A watertight closure was done at this layer. The dermis was closely approximated with a 3-0, interrupted Monocryl suture. Final skin closure was completed with a running subcuticular stitch with Steri's. Xeroform gauze, sterile 4 x 4's and a cotton padding and Garo bandage were used for soft bandage. There were no complications during the procedure. Patient was safely awoken and transferred to the postanesthetic care unit stable condition. PRE-OP/PRE-PROCEDURE DIAGNOSIS: Left elbow, extensor tendinitis; tennis elbow POST-OP/POST-PROCEDURE DIAGNOSIS: Same as Preop ESTIMATED BLOOD LOSS: 0 ml SPECIMENS: None IMPLANTABLE DEVICES: None DRAINS: None COMPLICATIONS: None PARTICIPATION IN SURGERY/PROCEDURE: I/primary surgeon/proceduralist performed the entire procedure. SIGNATURE: Jersey Cole MD PATIENT NAME: Otoniel Victoria DATE: August 28, 2022 TIME: 3:25 PM [facility] Comprehensive metabolic 2000 panelon 08-13-2022 Albumin [Mass/Vol] 4.7 g/dL 3.9 - 4.9 g/dL [facility] ALP [Catalytic activity/Vol] 89 U/L 38 - 113 U/L [facility] ALT [Catalytic activity/Vol] 18 U/L 10 - 54 U/L [facility] Anion gap [Moles/Vol] 11 mmol/L 9 - 18 mmol/L [facility] AST [Catalytic activity/Vol] 23 U/L 14 - 40 U/L [facility] Bilirubin [Mass/Vol] 0.4 mg/dL 0.2 - 1 .3 mg/dL [facility] Calcium [Mass/Vol] 9.9 mg/dL 8.5 - 10. 2 mg/dL [facility] Chloride [Moles/Vol] 99 mmol/L 97 - 10 5 mmol/L [facility] CO2 [Moles/Vol] 29 mmol/L 22 - 30 mmol/L [facility] Creatinine [Mass/Vol] 1.09 mg/dL 0.73 - 1.22 mg/dL [facility] Estimated Glomerular Filtration Rate 82 mL/min/1.73m >=60 mL/min/1.73 m [facility] Glucose [Mass/Vol] 79 mg/dL 74 - 99 mg/dL [facility] Potassium [Moles/Vol] 4.2 mmol/L 3.7 - 5.1 mmol/L [facility] Protein [Mass/Vol] 6.6 g/dL 6.3 - 8.0 g/dL [facility] Sodium [Moles/Vol] 139 mmol/L 136 - 144 mmol/L [facility] Urea nitrogen [Mass/Vol] 8 mg/dL Low 9 - 24 mg/dL [facility] EGD - THERAPEUTIC, EUS, OR T UBE INTERVENTIONSon 08-13-2022 [facility] TSH BLDon 08-13-2022 TSH Qn 2.180 m[IU]/L 0.270 - 4.200 mIU/L [facility] VITAMIN B12 BLOODon 08-13-20 Cobalamin (Vitamin B12) [Mass/Vol] 268 pg/mL 232 - 1,245 pg/mL [facility] VITAMIN D 25 HYDROXYon 08-13 25-hydroxyvitamin D3 [Mass/Vol] 31.2 ng/mL 31.0 - 80.0 ng/mL [facility] XR CHEST 2V FRONTAL/LATon [facility] CT NECK SOFT TISSUE WO IVCON on 05-14-2022 [facility] CBC W Auto Differential pane l (Bld)on 05-13-2022 Abs Immature Gran <0.03 <0.10 k/uL [facility] Basophils (Bld) [#/Vol] 0.03 10*3/uL <0.11 k/uL [facility] Basophils/100 WBC (Bld) 0.4 % [facility] Differential cell count method Nom (Bld) Auto [facility] Eosinophils (Bld) [#/Vol] 0.07 10*3/uL <0.46 k/uL [facility] Eosinophils/100 WBC (Bld) 1.0 % [facility] Erythrocyte distribution width (RBC) [Ratio] 15.2 % High 11.5 - 15.0 % [facility] Hematocrit (Bld) [Volume fraction] 44.4 % 39.0 - 51.0 % [facility] Hemoglobin (Bld) [Mass/Vol] 14.0 g/dL 13.0 - 17.0 g/dL [facility] Immature Gran % 0.3 % [facility] Lymphocytes (Bld) [#/Vol] 2.50 10*3/uL 1.00 - 4.00 k/uL [facility] Lymphocytes/100 WBC (Bld) 35.4 % [facility] MCH (RBC) [Entitic mass] 28.3 pg 26.0 - 34.0 pg [facility] MCHC (RBC) [Mass/Vol] 31.5 g/dL 30.5 - 36.0 g/dL [facility] MCV (RBC) [Entitic vol] 89.9 fL 80.0 - 100.0 fL [facility] Monocytes (Bld) [#/Vol] 0.48 10*3/uL <0.87 k/uL [facility] Monocytes/100 WBC (Bld) 6.8 % [facility] Neutrophils (Bld) [#/Vol] 3.97 10*3/uL 1.45 - 7.50 k/uL [facility] Neutrophils/100 WBC (Bld) 56.1 % [facility] Nucleated RBC (Bld) [#/Vol] 10*3/uL <0.01 k/uL [facility] Nucleated RBC/100 WBC (Bld) [Ratio] 0.0 /100 WBC [facility] Platelet mean volume (Bld) [Entitic vol] 11.5 fL 9.0 - 12.7 fL [facility] Platelets (Bld) [#/Vol] 191 10*3/uL 150 - 400 k/uL [facility] RBC (Bld) [#/Vol] 4.94 10*6/uL 4.20 - 6.0 0 m/uL [facility] WBC (Bld) [#/Vol] 7.07 10*3/uL 3.70 - 11.00 k/uL [facility] BRAIN & CERVICAL SPINE MRI D ISCRETE DATAon 04-15-2022 Brain Enhancing Lesions None [facility] Brain Interval Improvement None [facility] Brain New T2 Lesions None Site [facility] Brain Other Significant MRI Findings None. [facility] Brain Parenchymal Volume Loss None [facility] Brain T2 [place] of Disease Mild [facility] MRI BRAIN WO/W IVCONon 04-15 [facility] NM CARDIAC PERF STRESS/PHARM on 04-08-2022 [facility] No Panel Informationon 04-02 [facility] ANES POSTPROC EVALon 022 ANES POSTPROC EVAL HNO ID: [id number] Author: Nikunj Bravo MD Service: Anesthesiology Author Type: Physician Type: Anesthesia Postprocedure Evaluation Filed: 02/18/2022 9:06 PM Note Text: POST ANESTHESIA EVALUATION NOTE : 1970 Procedure Summary Date: 02/18/22 Room / Location: [place] [address] / [place] Anesthesia Start: 1530 Anesthesia Stop: 1638 Procedures: EXCISION OF NAIL AND MATRIX FOR PERMANENT REMOVAL (Bilateral Foot) DEBRIDE 1-5 TOE NAILS (Bilateral Foot) Diagnosis: Onychomycosis of toenail Surgeons: Shyann Sánchez Responsible Provider: Nikunj Bravo MD Anesthesia Type: MAC ASA Status: 3 Anesthesia Type: MAC Last Vitals Vitals Value Taken Time BP 106/68 02/18/22 1700 Temp 36.4 ?C (97.5 ?F) 02/18/22 1637 HR SpO2 77 02/18/22 1637 Resp 17 02/18/22 1708 SpO2 96 % 02/18/22 1708 Vitals shown include unvalidated device data. Post Anesthesia Patient Status Patient Evaluation: PACU. PACU/ICU Patient Condition: stable. Anticipated Disposition: phase 2 then home. Neurological Status: aware and responsive. Pulmonary Status: breathing comfortably on room air Airway Control: returned to baseline unsupported. Cardiovascular Status: stable. Pain Management: clinically adequate - multimodal analgesia pain management approach Postoperative Hydration: acceptable. Intraoperative Events: no significant anesthesia events Recommendation: continue current plan of care. Anesthesia Observations No Documentation SIGNATURE: Nikunj Bravo MD PATIENT NAME: Otoniel Victoria DATE: February 18, 2022 TIME: 9:06 PM CSN: [id number] [facility] ANES PRE-OPon 02-18-2022 ANES PRE-OP HNO ID: [id number] Author: Chelsy Ojeda MD Service: Anesthesiology Author Type: Anesthesiologist Type: Anesthesia Preprocedure Evaluation Filed: 02/18/2022 12:54 PM Note Text: ANESTHESIOLOGY DAY OF SURGERY NOTE : 1970 Procedure Information Date/Time: 02/18/22 1325 Procedure: EXCISION OF NAIL AND MATRIX FOR PERMANENT REMOVAL (Bilateral Foot) Location: [place] [address] / [place] Surgeons: Shyann Sánchez Estimated body mass index is 22.98 kg/m? as calculated from the following: Height as of 02/04/22: 188 cm (6' 2). Weight as of 02/13/22: 81.2 kg (179 lb). Most recent hematocrit and potassium results: Hematocrit 42.6 01/16/2022 Potassium 4.1 01/16/2022 Relevant Problems CARDIO (+) Essential hypertension, benign (+) Migraine GI (+) Gastroesophageal reflux disease without esophagitis -RENAL (+) Fatty liver NEURO-PSYCH (+) Migraine (+) Personal history of colonic polyps PULMONARY (+) Chronic obstructive pulmonary disease (HCC) Other (+) Arthritis of left knee (+) CML (chronic myeloid leukemia) (HCC) (+) Lateral epicondylitis of both elbows (+) Splenomegaly (+) Suprapatellar bursitis of left knee I - PHYSICAL EVALUATION AIRWAY Patient intubated: No. Tracheostomy tube not present Mallampati: II. TM distance: >3 FB. Neck ROM: full ROM without neurological symptoms. Mouth opening: adequate. Short neck: no. Thick neck: no DENTAL Dental findings: edentulous. Additional exam findings: no II - ANESTHESIA PLAN ASA Score: 3 Anesthetic Plan: MAC The patient is a current smoker. NPO Status: adequate Monitoring plan: standard ASA. Postoperative analgesic plan: parenteral or oral opioids. Patient / Surrogate agrees to blood products: blood products not planned Significant changes in the patient condition since the History and Physical, not otherwise documented in primary service progress note: no. Potential Anesthesia issues that may suggest increased risk of complications or contraindication to planned procedure: none. No vitals data found for the desired time range. Facility-Administered Medications as of 02/18/2022 Medication Dose Route Frequency - lidocaine 10 mg/mL (1 %) 1-2 mg injection (XYLOCAINE) 0.1-0.2 mL INTRADERMAL PRN - lactated ringers iv infusion 5-30 mL/hr INTRAVENOUS CONTINUOUS Outpatient Medications as of 02/18/2022 Medication Sig - sucralfate (CARAFATE) 1 gram tablet Take 1 tablet by mouth three times daily. - umeclidinium-vilanterol (ANORO ELLIPTA) 62.5-25 mcg/actuation inhaler Inhale 1 Inhalation as instructed once daily. - atenolol (TENORMIN) 25 mg tablet Take 1 tablet by mouth once daily. - albuterol HFA (VENTOLIN HFA) 90 mcg/actuation inhaler INHALE 2 PUFFS INSTRUCTED EVERY FOUR HOURS NEEDED FOR WHEEZING / SHORTNESS OF BREATH - linaCLOtide (LINZESS) 72 mcg capsule Take first thing in the morning, 30 minutes before eating anything.Swallow whole; DO NOT crush or chew. - gabapentin (NEURONTIN) 600 mg tablet TAKE 1 TABLET BY MOUTH THREE TIMES A DAY - gemfibrozil (LOPID) 600 mg tablet Take 1 tablet by mouth twice daily. - dicyclomine (BENTYL) 20 mg tablet Take 1 tablet by mouth three times daily. - Cholecalciferol, Vitamin D3, (VITAMIN D-3) 50 mcg (2,000 unit) cap Take 1 capsule by mouth once daily. - lactobacillus rhamnosus (CULTURELLE) 15 billion cell capsule Take 1 capsule by mouth once daily. - lamoTRIgine (LAMICTAL) 200 mg tablet Take 1 tablet by mouth once daily. - ARIPiprazole (ABILIFY) 5 mg tablet Take 1 tablet by mouth once daily. - vilazodone (VIIBRYD) 40 mg Take 40 mg by mouth once daily. I have interviewed and examined the patient. I have reviewed the medical record and/or the pre-anesthesia evaluation, pertinent labs, and test results. This contains updated information obtained within 48 hours of Surgery/Procedure. SIGNATURE: Chelsy Ojeda MD PATIENT NAME: Otoniel Victoria DATE: February 18, 2022 TIME: 12:53 PM CSN: [id number] [facility] BRIEF OP NOTon 02-18-2022 BRIEF OP NOT HNO ID: [id number] Author: Shyann Sánchez Service: Podiatry Author Type: Physician Type: Brief Op Note Filed: 02/18/2022 4:25 PM Note Text: BRIEF OPERATIVE / PROCEDURE NOTE LOG ID: [id number] SURGERY/PROCEDURE DATE: 02/18/2022 INCISION/PROCEDURE START TIME: 3:52 PM INCISION CLOSE/PROCEDURE END TIME: SURGEON(S)/PROCEDURALIST(S) AND VISUAL MERCHANDISING SPECIALIST(S): Surgeon(s) and Role: * Shyann Sánchez - Primary No Additional Staff SURGERY/PROCEDURE(S): phenol matrixectomy toes 2,3,4,5 b/l. Callus debridement of b/l hallux ANESTHESIA: Monitored Anesthesia Care FINDINGS: severe thickening of right 3rd toenail causing nail bed fissuring. Nail bed was repaired with 4-0 monocryl. No deep nail bed laceration ESTIMATED BLOOD LOSS: less than 5 ml mls SPECIMENS: None COMPLICATIONS: None PRE-OP/PRE-PROCEDURE DIAGNOSIS: onychomycosis POST-OP/POST-PROCEDURE DIAGNOSIS: Same as Preop SIGNATURE: Shyann Sánchez DPM PATIENT NAME: Otoniel Victoria DATE: February 18, 2022 TIME: 4:24 PM [facility] HISTORY PHYSICALon HISTORY PHYSICAL HNO ID: [id number] Author: Shyann Sánchez Service: Podiatry Author Type: Physician Type: HANDP Filed: 02/18/2022 3:10 PM Note Text: UPDATED HISTORY AND PHYSICAL EXAMINATION SERVICE DATE: 02/18/2022 SERVICE TIME: 3:07 PHYSICAL EXAM MUST BE COMPLETED ON ADMISSION The History and Physical (completed in the past 30 days) has been reviewed and the patient has been examined. The contents accurately reflect the patient's condition with the following additions or revisions since the HANDP was completed. Examination indicates no changes. This HANDP can be found in the Electronic Medical Record dated 02/04/22 Physical exam Patient is alert and orientated x 3. Patient does not appear in any distress Vascular:DP and PT pulses are palpable b/l. cft is less than 5 seconds. Skin temperature is warm to warm. pvr reviewed. shreya and tbi is normal. Derm: toenails 2-5 b/l are thick, discolored, ingrowing and painful. Callus present to b/l hallux. Cardiac: regular rate and rhythma Lungs: clear Assessment. Onychomycosis Plan: patient consented to toenail matrixectomy 2-5 b/l. We discussed his smoking. We discussed waiting until he stopped smoking as smoking can lead to slow healing. He understands this but has elected to pursue removal at this time. In addition, he complains of painful callus that he wishes to have debrided. He has callus to b/l hallux and will plan for callus debridement. All risks and benefts were discussed. Patient consents to proceed Shyann Sánchez DPM . SIGNATURE: Shyann Sánchez DPM PATIENT NAME: Otoniel Victoria DATE: February 18, 2022 TIME: 3:07 PM [facility] OPERATIVE NOon 02-18-2022 OPERATIVE NO HNO ID: [id number] Author: Shyann Sánchez Service: Podiatry Author Type: Physician Type: Operative Report Filed: 02/18/2022 10:23 PM Note Text: OPERATIVE/PROCEDURE REPORT LOG ID: [id number] SURGERY/PROCEDURE DATE: 02/18/2022 INCISION/PROCEDURE START TIME: 3:52 PM INCISION CLOSE/PROCEDURE END TIME: 4:29 PM SURGEON(S)/PROCEDURALIST(S) AND VISUAL MERCHANDISING SPECIALIST(S): Surgeon(s) and Role: * Shyann Sánchez - Primary No Additional Staff SURGERY/PROCEDURE(S): Phenol matrixectomy, toes 2,3,4,5 Callus debridement to b/l hallux ANESTHESIA: Monitored Anesthesia Care SURGERY/PROCEDURE DETAILS: patient is a 51 year old male who complains primarily of painful toenails 2,3,4,5. He had similar pain to b/l hallux and this was successfully treated with matrixectomy of b/l hallux and since then, he has had no pain. He is interested in having the b/l 2,3,4,5 toenail removed. I discussed this procedure with patient. I discussed risks of this procedure not limited to infection, pain, swelling, bleeding, slow wound healing, blistering from the phenol, loss of toe due to slow wound healing or bone infection. I discussed risk of slow healing due to smoking. I offered patient chance to wait on procedure until he stopped smoking. He states he often develops pain and ingrown and for this reason, he has elected to pursue the procedure now. He has elected to do under sedation and has elected to have all 8 remaining toenails removed at once. In addition to the painful toenails, he mentions today painful callus to b/l hallux. He has interest in having these debrided. I discussed all risks of this procedure and he has consented for callus debridement of b/l hallux and matrixectomy of toes 2,3,4,5 of b/l feet. Of note, this patient has pvr prior to procedure and the circulation in his toes is adequate. Patient was transferred from the pre-op holding are and placed on the operating room table in the supine position. Time out was performed making note of the procedure and personal involved. He was placed under sedation and then a local field block consisting of 2 cc of 1% lidocaine plain was then injected in to the b/l 2nd, 3rd, 4th and 5th toe. Attention was first directed to b/l hallux. Time out was performed making note of the procedure. Using a 15 blade, the b/l callus was debrided. No underlying ulceration was noted. The b/l lower extremity was then prepped and draped in the usual aseptic technique. Attention was first directed to the right foot. A digital tourniquet was placed on the right second and third toe Using an elevator, the 2nd and third toenail was freed from the underlying nail bed both dorsally and subungually. The toenail was freed and removed of both 2nd and third toe. A curette was used to assure no underlying spicule formation. Inspection of the nail bed did not reveal and nail bed laceration, however, there was fraying of the third nail bed and was eventually repaired with monocryl. Phenol was then used x 30 seconds for three applications to both second and third toe and then neutralized with alcohol. The tourniquet was removed and hemostasis was achieved. ? A digital tourniquet was then placed on the right 4th and 5th toenail. Using an elevator, the fourth and fifth toenail was freed from the underlying nail bed both dorsally and subungually. The toenail was freed and removed of both fourth and fifth toes. A curette was used to assure no underlying spicule formation. Inspection of the nail bed did not reveal and nail bed laceration. Phenol was then used x 30 seconds for three applications to both fourth and fifth toes and then neutralized with alcohol. The tourniquet was removed and hemostasis was achieved. ? Attention was then directed to the left foot. A digital tourniquet was placed on the left second and third toe. Using an elevator, the second and third toenail was freed from the underlying nail bed both dorsally and subungually. The toenail was freed and removed of both second and third toe. A curette was used to assure no underlying spicule formation. Inspection of the nail bed did not reveal and nail bed laceration. Phenol was then used x 30 seconds for three applications to both second and third toe and then neutralized with alcohol. The tourniquet was removed and hemostasis was achieved. ? A digital tourniquet was then placed on the left 4th and 5th toe. Using an elevator, the fourth and fifth toenail was freed from the underlying nail bed both dorsally and subungually. The toenail was freed and removed of both fourth and fifth toe. A curette was used to assure no underlying spicule formation. Inspection of the nail bed did not reveal any nail bed laceration. Phenol was then used x 30 seconds for three applications to both fourth and fifth toe and then neutralized with alcohol. The tourniquet was removed and hemostasis was achieved. Two 4-0 monocryl sti (more content not included)... Normal [facility] XR Chest PA and Lateralon IMPRESSION: No acute radiographic abnormality. Chemical Weigher: YOBANY Transcribe Date/Time: Jan 22 2022 9:41A Dictated by : MINE VALDES MD This examination was interpreted and the report reviewed and electronically signed by: MINE VALDES MD on Jan 22 2022 9:45AM [facility] DIVISION OF RADIOLOGY * * *Final Report* * * DATE OF EXAM: Jan 22 2022 9:32AM WOX 5291 - XR CHEST 2V FRONTAL/LAT / PROCEDURE REASON: multiple diagnoses * * * * Physician Interpretation * * * * EXAMINATION: CHEST RADIOGRAPH (2 VIEW FRONTAL & LATERAL) CLINICAL HISTORY: Smoldering myeloma CML (chronic myeloid leukemia) (HCC) MQ: XC2_6 EXAM DATE/TIME: 01/22/2022 9:32 AM COMPARISON: CT chest on 10/17/2021. RESULT: Lines, tubes, and devices: None. Lungs and pleura: Stable tiny calcifications overlying the right lower lung. No consolidation. No lung mass. No pleural effusion. No pneumothorax. Cardiomediastinal silhouette: Normal cardiomediastinal silhouette. Bones and soft tissues: Unremarkable. DIVISION OF RADIOLOGY Provider, [facility] - 01/22/2022 * * *Final Report* * * DATE OF EXAM: Jan 22 2022 9:32AM WOX 5291 - XR CHEST 2V FRONTAL/LAT / PROCEDURE REASON: multiple diagnoses * * * * Physician Interpretation * * * * EXAMINATION: CHEST RADIOGRAPH (2 VIEW FRONTAL & LATERAL) CLINICAL HISTORY: Smoldering myeloma CML (chronic myeloid leukemia) (HCC) MQ: XC2_6 EXAM DATE/TIME: 01/22/2022 9:32 AM COMPARISON: CT chest on 10/17/2021. RESULT: Lines, tubes, and devices: None. Lungs and pleura: Stable tiny calcifications overlying the right lower lung. No consolidation. No lung mass. No pleural effusion. No pneumothorax. Cardiomediastinal silhouette: Normal cardiomediastinal silhouette. Bones and soft tissues: Unremarkable. IMPRESSION IMPRESSION: No acute radiographic abnormality. Chemical Weigher: YOBANY Transcribe Date/Time: Jan 22 2022 9:41A Dictated by : MINE VALDES MD This examination was interpreted and the report reviewed and electronically signed by: MINE VALDES MD on Jan 22 2022 9:45AM EST [facility] Radiology Study observation (narrative) [facility] XR Chest PA and LateralOrder ed By: [facility] Provider on 01-22-2022 [facility] XR Knee - left 4 Viewson IMPRESSION: Mild bilateral medial compartmental joint space narrowing. Chemical Weigher: YOBANY Transcribe Date/Time: Jan 22 2022 10:02A Dictated by : ANISA LOWE MD This examination was interpreted and the report reviewed and electronically signed by: ANISA LOWE MD on Jan 22 2022 10:04AM EST DIVISION OF RADIOLOGY * * *Final Report* * * DATE OF EXAM: Jan 22 2022 9:31AM WOX 5202 - XR KNEE 4V AP/PA BOTH+LAT/MONA LT / PROCEDURE REASON: Acute pain of left knee * * * * Physician Interpretation * * * * CLINICAL INDICATION: Knee pain TECHNIQUE: AP/PA/merchant radiographs of both knees and lateral radiograph of the left knee COMPARISON: None FINDINGS: Left knee: Trace fluid in the left suprapatellar joint space. No acute fracture or dislocation. Mild medial compartmental joint space narrowing. Superior patellar enthesophyte. Right knee: No fracture or dislocation. Mild medial compartmental joint space narrowing. DIVISION OF RADIOLOGY Provider, [facility] - 01/22/2022 * * *Final Report* * * DATE OF EXAM: Jan 22 2022 9:31AM WOX 5202 - XR KNEE 4V AP/PA BOTH+LAT/MONA LT / PROCEDURE REASON: Acute pain of left knee * * * * Physician Interpretation * * * * CLINICAL INDICATION: Knee pain TECHNIQUE: AP/PA/merchant radiographs of both knees and lateral radiograph of the left knee COMPARISON: None FINDINGS: Left knee: Trace fluid in the left suprapatellar joint space. No acute fracture or dislocation. Mild medial compartmental joint space narrowing. Superior patellar enthesophyte. Right knee: No fracture or dislocation. Mild medial compartmental joint space narrowing. IMPRESSION IMPRESSION: Mild bilateral medial compartmental joint space narrowing. Chemical Weigher: YOBANY Transcribe Date/Time: Jan 22 2022 10:02A Dictated by : ANISA LOWE MD This examination was interpreted and the report reviewed and electronically signed by: ANISA LOWE MD on Jan 22 2022 10:04AM EST [facility] Radiology Study observation (narrative) [facility] XR Knee - left 4 ViewsOrdere d By: [facility] Provider on 01-22-2022 [facility] XR Cervical spine AP and Lat eral and obliqueon 02-13-2021 IMPRESSION: Negative cervical spine X-ray. Chemical Weigher: YOBANY Transcribe Date/Time: Feb 13 2021 3:55P Dictated by : MINE VALDES MD This examination was interpreted and the report reviewed and electronically signed by: MINE VALDES MD on Feb 13 2021 3:56PM EST DIVISION OF RADIOLOGY * * *Final Report* * * DATE OF EXAM: Feb 13 2021 2:54PM WOX 5311 - XR CERVICAL 4V AP/LAT/OBL / PROCEDURE REASON: Neck pain * * * * Physician Interpretation * * * * EXAM TITLE: XR CERVICAL 4V AP/LAT/OBL EXAM DATE/TIME: 02/13/2021 2:54 PM COMPARISON: None. CLINICAL INDICATION/HISTORY: Neck pain. TECHNIQUE: AP, lateral, and oblique views of the cervical spine are presented. FINDINGS: No fractures or subluxations are noted. The disc spaces are well preserved. There is no significant osteophyte formation. The neural foramina are patent. The prevertebral soft tissues are normal. DIVISION OF RADIOLOGY Provider, Anthony Jiménez [facility] - 02/13/2021 * * *Final Report* * * DATE OF EXAM: Feb 13 2021 2:54PM WOX 5311 - XR CERVICAL 4V AP/LAT/OBL / PROCEDURE REASON: Neck pain * * * * Physician Interpretation * * * * EXAM TITLE: XR CERVICAL 4V AP/LAT/OBL EXAM DATE/TIME: 02/13/2021 2:54 PM COMPARISON: None. CLINICAL INDICATION/HISTORY: Neck pain. TECHNIQUE: AP, lateral, and oblique views of the cervical spine are presented. FINDINGS: No fractures or subluxations are noted. The disc spaces are well preserved. There is no significant osteophyte formation. The neural foramina are patent. The prevertebral soft tissues are normal. IMPRESSION IMPRESSION: Negative cervical spine X-ray. Chemical Weigher: PSCB Transcribe Date/Time: Feb 13 2021 3:55P Dictated by : MINE VALDES MD This examination was interpreted and the report reviewed and electronically signed by: MINE VALDES MD on Feb 13 2021 3:56PM EST [facility] Radiology Study observation (narrative) [facility] XR Cervical spine AP and Lat eral and obliqueOrdered By: [facility] Provider on 02-13-[address] [facility] [address] WB SKULL TO KNEE WO IVCON on 02-01-2021 CT WB SKULL TO KNEE WO IVCON Final Report DATE OF EXAM: Feb 01 2021 3:47PM [facility] 2096 - CT WB SKULL TO KNEE WO IVCON / PROCEDURE REASON: Multiple myeloma not having achieved remission (HCC) Physician Interpretation Examination: Whole-Body Low Dose CT Without Contrast 02/01/2021 3:47 PM History: 50 year old male with smoldering myeloma and CML. Technique: Low dose whole body CT protocol was acquired in the axial plane without contrast from the vertex to the mid tibial diaphysis. MQ: CTWB_1A CT Dose-Length Product (DLP): [address] Dose Reduction Employed: Automated exposure control (AEC) Comparison: CT abdomen/pelvis 12/05/2020. CT chest 01/26/2019. CT abdomen/pelvis 12/25/2011. RESULT: Please note that this low dose non-contrast examination with free breathing technique is limited for detection of some intrathoracic, solid abdominal organ, and vascular pathologies. Additionally, study is insensitive for detection of diffuse pattern of myelomatous marrow infiltration. OSSEOUS STRUCTURES: Counting reference: Lumbosacral junction. For the purposes of this report, L4-5 is considered the level of the iliac crest and assume there are 5 lumbar-type vertebrae. Anatomic variant: None. Calvarium: There is no well circumscribed lytic lesion measuring 5 mm or greater. Spine: There is no well circumscribed lytic lesion measuring 5 mm or greater. Vertebral body heights are preserved. Vertebral disc height is maintained. Upper extremities: There is no well circumscribed lytic lesion measuring 5 mm or greater. There are no suspicious findings noted in the intramedullary cavities. Ribs/Sternum: There is no well circumscribed lytic lesion measuring 5 mm or greater. Bony pelvis: : There is no well circumscribed lytic lesion measuring 5 mm or greater. 0.2 cm sclerotic focus within the left medial acetabulum is unchanged in 2012 is benign, likely a tiny bone island. 0.4 cm sclerotic focus within the superior left sacrum also likely represents a bone island. Stable 0.2 cm sclerotic focus within the right ischium, also likely a bone island. Lower extremities: There is no well circumscribed lytic lesion measuring 5 mm or greater. There are no suspicious findings noted in the intramedullary cavities. NON-OSSEOUS STRUCTURES Soft tissues: No soft tissue mass. Head/neck: Limited low dose evaluation of intra-cranial structures show No acute intracranial process. No pathologically enlarged cervical adenopathy. CHEST: Lines, tubes, and devices: None. Thoracic inlet, heart, and mediastinum: Asymmetric enlargement of the left thyroid lobe, unchanged. No discrete thyroid mass identified. No lymphadenopathy in the axillary, mediastinal, or hilar regions within limitations of non-contrast exam. No gross cardiac enlargement or pericardial effusion. Chest wall is unremarkable. No coronary artery atherosclerotic calcifications are noted, although the study is not optimized for coronary assessment. Lung parenchyma and pleura: No consolidation. No suspicious pulmonary nodule is noted within limitations of reduced dose and free breathing technique. No pleural effusion. Central airways are patent. ABDOMEN/Pelvis: The unenhanced appearance of the liver, spleen, adrenal glands, and pancreas are unremarkable. No hydroureteronephrosis. Malrotated left kidney. No dilated bowel. No lymphadenopathy by size criteria. Abdominal aorta is normal in caliber. Unremarkable unenhanced appearance of pelvic organs and urinary bladder. IMPRESSION: 1. No evidence of multiple myeloma. No well circumscribed lytic bone lesion. 2. There are a few small sclerotic foci in the pelvis most likely represent benign bone islands. Chemical Weigher: YOBANY Transcribe Date/Time: Feb 06 2021 9:31A Dictated by : XIOMARA AGUILAR MD This examination was interpreted and the report reviewed and electronically signed by: XIOMARA AGUILAR MD on Feb 06 2021 10:07AM EST Normal [facility] PROGRESSon 02-01-2021 PROGRESS HNO ID: [id number] Author: Arlin Reza(Ct) JOVANI Trejo Service: Radiology Author Type: Clinical Propellant Charge Loader Type: Progress Notes Filed: 02/01/2021 3:53 PM Note Text: Radiology Service Progress Note PATIENT NAME: Otoniel Victoria DATE OF SERVICE: February 01, 2021 TIME: 3:53 PM PATIENT IDENTITY VERIFICATION COMPLETED USING TWO (2) IDENTIFIERS: Name and Date of confirmed by patient verbally and Name and Date of confirmed by identification band. FALL SCREENING: Has the patient had 2 falls in the last year or 1 fall with injury or currently using an Ambulatory Assistive Device (Walker, Cane, Wheelchair, Crutches, etc.)? No PATIENT GENDER DATA: Male PATIENT RELEVANT IMPLANT DATA REVIEWED: Not Applicable RADIOLOGY DEPARTMENT: CT; Exam(s) Completed: whole body CT low dose PERIPHERAL IV DATA: Not applicable SIGNED BY: JOVANI RAND February 01, 2021 3:53 PM Normal [facility] ECG COMPLETEon 09-27-2020 Atrial Rate 61 BPM [facility] Calculated P [place] 20 degrees [facility] Calculated R [place] 74 degrees [facility] Calculated T [place] 55 degrees [facility] P-R Interval 142 ms [facility] QRS Duration 100 ms [facility] QT Interval 410 ms [facility] QTC Calculation (Bazett) 412 ms [facility] Ventricular Rate [address] [facility] NORMAL SINUS RHYTHM NORMAL ECG Confirmed by CARLITO KIMBLE M.D. ([id number]) on 09/27/2020 3:53:35 PM [facility] NAME : OTONIEL VICTORIA PID : [id number] : 1970 Gender : Male Race : ORD : [id number] Procedure Date : Sep 26 2020 09:10:27 Edit Date : Sep 27 2020 15:53:38 Diagnosis: NORMAL SINUS RHYTHM NORMAL ECG Confirmed by CARLITO KIMBLE M.D. ([id number]) on 09/27/2020 3:53:35 PM Test Reason : Location : 185 : WO Overread By : CARLITO KIMBLE M.D. Edited By : CARLITO KIMBLE M.D. Referred By : OTONIEL HEATON Acquired by : EDDIE SARGENT, [facility] XR Chest PA and Lateralon IMPRESSION: No acute radiographic abnormality. Chemical Weigher: PSCB Transcribe Date/Time: Sep 26 2020 8:50A Dictated by : RICKEY HALE MD This examination was interpreted and the report reviewed and electronically signed by: RICKEY HALE MD on Sep 26 2020 8:58AM [facility] DIVISION OF RADIOLOGY * * *Final Report* * * DATE OF EXAM: Sep 26 2020 8:48AM WOX 5291 - XR CHEST 2V FRONTAL/LAT / PROCEDURE REASON: CML (chronic myeloid leukemia) (HCC) * * * * Physician Interpretation * * * * EXAMINATION: CHEST RADIOGRAPH (2 VIEW FRONTAL & LATERAL) CLINICAL HISTORY: CML (chronic myeloid leukemia) (HCC) MQ: XC2_6 EXAM DATE/TIME: 09/26/2020 8:48 AM COMPARISON: 09/07/2018 RESULT: Lines, tubes, and devices: None. Lungs and pleura: No consolidation. No lung mass. No pleural effusion. No pneumothorax. Cardiomediastinal silhouette: Normal cardiomediastinal silhouette. Bones and soft tissues: Mild degenerative changes are present within the thoracic spine. DIVISION OF RADIOLOGY Provider, [facility] - 09/26/2020 * * *Final Report* * * DATE OF EXAM: Sep 26 2020 8:48AM WOX 5291 - XR CHEST 2V FRONTAL/LAT / PROCEDURE REASON: CML (chronic myeloid leukemia) (HCC) * * * * Physician Interpretation * * * * EXAMINATION: CHEST RADIOGRAPH (2 VIEW FRONTAL & LATERAL) CLINICAL HISTORY: CML (chronic myeloid leukemia) (HCC) MQ: XC2_6 EXAM DATE/TIME: 09/26/2020 8:48 AM COMPARISON: 09/07/2018 RESULT: Lines, tubes, and devices: None. Lungs and pleura: No consolidation. No lung mass. No pleural effusion. No pneumothorax. Cardiomediastinal silhouette: Normal cardiomediastinal silhouette. Bones and soft tissues: Mild degenerative changes are present within the thoracic spine. IMPRESSION IMPRESSION: No acute radiographic abnormality. Chemical Weigher: PSCB Transcribe Date/Time: Sep 26 2020 8:50A Dictated by : RICKEY HALE MD This examination was interpreted and the report reviewed and electronically signed by: RICKEY HALE MD on Sep 26 2020 8:58AM EST [facility] Radiology Study observation (narrative) [facility] XR Chest PA and LateralOrder ed By: [facility] Provider on 09-26-2020 [facility] No Panel Information [facility] Vital Signs Date Time Vital Sign Value Performing Clinician Facility 02-16-2025 09:39-0400 Body mass index (BMI) [Ratio] 26.19 kg/m2 Noman Dean DO Work Phone: [facility] 02-16-2025 09:39-0400 Body temperature 98.01 [degF] Noman Dean DO Work Phone: [facility] 02-16-2025 09:39-0400 Body weight 92.53 kg Noman Dean DO Work Phone: [facility] 02-16-2025 09:39-0400 Diastolic blood pressure 70 mm[Hg] Noman Dean DO Work Phone: [facility] 02-16-2025 09:39-0400 Heart rate 80 /min Noman Dean DO Work Phone: [facility] 02-16-2025 09:39-0400 Respiratory rate 20 /min Noman Dean DO Work Phone: [facility] 02-16-2025 09:39-0400 Systolic blood pressure 100 mm[Hg] Noman Dean DO Work Phone: [facility] 12-31-2024 11:38-0500 Body mass index (BMI) [Ratio] 26.71 kg/m2 Otoniel Shanei DO Work Phone: [facility] 12-31-2024 11:38-0500 Body temperature 97.9 [degF] Otoniel Heaton DO Work Phone: [facility] 12-31-2024 11:38-0500 Body weight 94.35 kg Otoniel Shanei DO Work Phone: [facility] 12-31-2024 11:38-0500 Diastolic blood pressure 74 mm[Hg] Otoniel Masci DO Work Phone: [facility] 12-31-2024 11:38-0500 Heart rate 71 /min Otoniel Masci DO Work Phone: [facility] 12-31-2024 11:38-0500 SaO2% (BldA) [Mass fraction] 98 % Otoniel Masci DO Work Phone: [facility] 12-31-2024 11:38-0500 Systolic blood pressure 113 mm[Hg] Otoniel Masci DO Work Phone: [facility] 11-17-2024 14:32-0500 Body mass index (BMI) [Ratio] 26.45 kg/m2 Noman Dean DO Work Phone: [facility] 11-17-2024 14:32-0500 Body temperature 98.01 [degF] Noman Dean DO Work Phone: [facility] 11-17-2024 14:32-0500 Body weight 93.44 kg Noman Dean DO Work Phone: [facility] 11-17-2024 14:32-0500 Diastolic blood pressure 60 mm[Hg] Noman Dean DO Work Phone: [facility] 11-17-2024 14:32-0500 Heart rate 64 /min Noman Dean DO Work Phone: [facility] 11-17-2024 14:32-0500 Respiratory rate 16 /min Noman Dean DO Work Phone: [facility] 11-17-2024 14:32-0500 Systolic blood pressure 100 mm[Hg] Noman Dean DO Work Phone: [facility] 10-11-2024 08:02-0500 Body mass index (BMI) [Ratio] 26.45 kg/m2 Jose Maria Dominguez APRN.TRIAL [employer] JUSTICE Work Phone: [facility] 10-11-2024 08:02-0500 Body weight 93.44 kg Jose Maria Peterster SET UP PERSON.[employer]IAL [employer] JUSTICE Work Phone: [facility] 10-11-2024 08:02-0500 Diastolic blood pressure 80 mm[Hg] Jose Maria [place] SET UP PERSON.[facility]IAL [employer] JUSTICE Work Phone: [facility] 10-11-2024 08:02-0500 Heart rate 67 /min Jose Maria [place] SET UP PERSON.[facility]IAL [employer] JUSTICE Work Phone: [facility] 10-11-2024 08:02-0500 Respiratory rate 15 /min Jose Maria [place] SET UP PERSON.[facility]IAL [employer] JUSTICE Work Phone: [facility] 10-11-2024 08:02-0500 SaO2% (BldA) [Mass fraction] 97 % Jose Maria [place] SET UP PERSON.[facility]IAL [employer] JUSTICE Work Phone: [facility] 10-11-2024 08:02-0500 Systolic blood pressure 122 mm[Hg] Jose Maria [place] SET UP PERSON.[facility]IAL [employer] JUSTICE Work Phone: [facility] 09-10-2024 10:05-0400 Body mass index (BMI) [Ratio] 26.58 kg/m2 Anabela Trejo SET UP PERSON.[facility]IAL [employer] JUSTICE Work Phone: [facility] 09-10-2024 10:05-0400 Body temperature 97.5 [degF] Anabela Trejo SET UP PERSON.[facility]IAL [employer] JUSTICE Work Phone: [facility] 09-10-2024 10:05-0400 Body weight 93.9 kg Anabela Vacaenter SET UP PERSON.[facility]IAL [employer] JUSTICE Work Phone: [facility] 09-10-2024 10:05-0400 Diastolic blood pressure 73 mm[Hg] [place] Trejo SET UP PERSON.[facility]IAL [employer] JUSTICE Work Phone: [facility] 09-10-2024 10:05-0400 Heart rate 73 /min Anabela Trejo SET UP PERSON.TRIAL COURT JUSTICE Work Phone: [facility] 09-10-2024 10:05-0400 SaO2% (BldA) [Mass fraction] 96 % Anabela Trejo SET UP PERSON.TRIAL COURT JUSTICE Work Phone: [facility] 09-10-2024 10:05-0400 Systolic blood pressure 118 mm[Hg] Anabela Trejo SET UP PERSON.TRIAL COURT JUSTICE Work Phone: [facility] 09-01-2024 09:20-0400 Body height 188 cm Mckenna Jose PA-C Work Phone: [facility] 09-01-2024 09:20-0400 Body mass index (BMI) [Ratio] 26.06 kg/m2 Mckenna Jose PA-C Work Phone: [facility] 09-01-2024 09:20-0400 Body weight 92.08 kg Mckenna Jose PA-C Work Phone: [facility] 09-01-2024 09:20-0400 Diastolic blood pressure 79 mm[Hg] Mckenna Jose PA-C Work Phone: [facility] 09-01-2024 09:20-0400 Heart rate 67 /min Mckenna Jose PA-C Work Phone: [facility] 09-01-2024 09:20-0400 Systolic blood pressure 126 mm[Hg] Mckenna Jose PA-C Work Phone: [facility] 08-25-2024 10:09-0400 Body height 188 cm Pulm Wstr Work Phone: [facility] 08-25-2024 10:09-0400 Body mass index (BMI) [Ratio] 26.06 kg/m2 Pulm Wstr Work Phone: [facility] 08-25-2024 10:09-0400 Body weight 92.08 kg Pulm Wstr Work Phone: [facility] 08-25-2024 09:49-0400 Body mass index (BMI) [Ratio] 27.53 kg/m2 Harriett Cortezone PA-C Work Phone: [facility] 08-25-2024 09:49-0400 Body weight 92.08 kg Harriett Gregorio PA-C Work Phone: [facility] 08-18-2024 14:23-0400 Body mass index (BMI) [Ratio] 28.34 kg/m2 Noman Dean DO Work Phone: [facility] 08-18-2024 14:23-0400 Body temperature 97.9 [degF] Noman Dean DO Work Phone: [facility] 08-18-2024 14:23-0400 Body weight 94.8 kg Noman Dean DO Work Phone: [facility] 08-18-2024 14:23-0400 Diastolic blood pressure 70 mm[Hg] Noman Dean DO Work Phone: [facility] 08-18-2024 14:23-0400 Heart rate 80 /min Noman Dean DO Work Phone: [facility] 08-18-2024 14:23-0400 Respiratory rate 16 /min Noman Dean DO Work Phone: [facility] 08-18-2024 14:23-0400 Systolic blood pressure 110 mm[Hg] Noman Dean DO Work Phone: [facility] 05-18-2024 11:46-0400 Body mass index (BMI) [Ratio] 28.35 kg/m2 Noman Dean DO Work Phone: [facility] 05-18-2024 11:46-0400 Body temperature 97 [degF] Noman Dean DO Work Phone: [facility] 05-18-2024 11:46-0400 Body weight 94.8 kg Noman Dean DO Work Phone: [facility] 05-18-2024 11:46-0400 Diastolic blood pressure 80 mm[Hg] Noman Dean DO Work Phone: [facility] 05-18-2024 11:46-0400 Heart rate 64 /min Noman Dean DO Work Phone: [facility] 05-18-2024 11:46-0400 Respiratory rate 16 /min Noman Dean DO Work Phone: [facility] 05-18-2024 11:46-0400 Systolic blood pressure 120 mm[Hg] Noman Dean DO Work Phone: [facility] 03-12-2024 10:32-0400 Body temperature 98.29 [degF] Otoniel Shanei DO Work Phone: [facility] 03-12-2024 10:32-0400 Body weight 94.12 kg Otoniel Shanei DO Work Phone: [facility] 03-12-2024 10:32-0400 Diastolic blood pressure 79 mm[Hg] Otoniel Shanei DO Work Phone: [facility] 03-12-2024 10:32-0400 Heart rate 70 /min Otoniel Shanei DO Work Phone: [facility] 03-12-2024 10:32-0400 SaO2% (BldA) [Mass fraction] 100 % Otoniel Shanei DO Work Phone: [facility] 03-12-2024 10:32-0400 Systolic blood pressure 118 mm[Hg] Otoniel Shanei DO Work Phone: [facility] 02-18-2024 11:30-0400 Diastolic blood pressure 99 mm[Hg] Dr. Noman Dean Work Phone: [facility] 02-18-2024 11:30-0400 Heart rate 63 /min Dr. Noman Dean Work Phone: [facility] 02-18-2024 11:30-0400 Respiratory rate 18 /min Dr. Noman Dean Work Phone: [facility] 02-18-2024 11:30-0400 SaO2% (BldA) [Mass fraction] 97 % Dr. Noman Dean Work Phone: [facility] 02-18-2024 11:30-0400 Systolic blood pressure 145 mm[Hg] Dr. Noman Dean Work Phone: [facility] 02-18-2024 09:23-0400 Body height 182.[address] Noman Dean Work Phone: [facility] 02-18-2024 09:23-0400 Body mass index (BMI) [Ratio] 27.9 kg/m2 Dr. Noman Dean Work Phone: [facility] 02-18-2024 09:23-0400 Body temperature 97.8 [degF] Dr. Noman Dean Work Phone: [facility] 02-18-2024 09:23-0400 Body weight 93.[address] Noman Dean Work Phone: [facility] 02-04-2024 11:56-0500 Body temperature 97.5 [degF] Noman Dean DO Work Phone: [facility] 02-04-2024 11:56-0500 Body weight 92.99 kg Noman Dean DO Work Phone: [facility] 02-04-2024 11:56-0500 Diastolic blood pressure 60 mm[Hg] Noman Dean DO Work Phone: [facility] 02-04-2024 11:56-0500 Heart rate 80 /min Noman Dean DO Work Phone: [facility] 02-04-2024 11:56-0500 Respiratory rate 16 /min Noman Dean DO Work Phone: [facility] 02-04-2024 11:56-0500 Systolic blood pressure 100 mm[Hg] Noman Dean DO Work Phone: [facility] 01-12-2024 08:43-0500 Body temperature 97.7 [degF] Dr. Noman Dean Work Phone: [facility] 01-12-2024 08:43-0500 Diastolic blood pressure 72 mm[Hg] Dr. Noman Dean Work Phone: [facility] 01-12-2024 08:43-0500 Heart rate 68 /min Dr. Noman Dean Work Phone: [facility] 01-12-2024 08:43-0500 Respiratory rate 16 /min Dr. Noman Dean Work Phone: [facility] 01-12-2024 08:43-0500 SaO2% (BldA) [Mass fraction] 96 % Dr. Noman Dean Work Phone: 5(501)437-451881 [place] [address] 01-12-2024 08:43-0500 Systolic blood pressure 103 mm[Hg] Dr. Noman Dean Work Phone: 9(274)990-318858 [place] [address] 01-12-2024 06:59-0500 Body height 187.[address] Noman Dean Work Phone: 5(442)026-512558 [place] [address] 01-12-2024 06:59-0500 Body mass index (BMI) [Ratio] 25.7 kg/m2 Dr. Noman Dean Work Phone: 8(585)218-496481 [place] [address] 01-12-2024 06:59-0500 Body weight [address] Noman Dean Work Phone: 8(003)378-695181 [place] [address] 11-05-2023 09:57-0500 Body temperature 98.2 [degF] Noman Dean DO Work Phone: [facility] 11-05-2023 09:57-0500 Body weight 89.81 kg Noman Dean DO Work Phone: [facility] 11-05-2023 09:57-0500 Diastolic blood pressure 70 mm[Hg] Noman Dean DO Work Phone: [facility] 11-05-2023 09:57-0500 Heart rate 76 /min Noman Chirinosrison DO Work Phone: [facility] 11-05-2023 09:57-0500 Respiratory rate 16 /min Noman Chirinosrison DO Work Phone: [facility] 11-05-2023 09:57-0500 Systolic blood pressure 110 mm[Hg] Noman Dean DO Work Phone: [facility] 09-18-2023 11:54-0400 Body temperature 98.29 [degF] Otoniel Acostai DO Work Phone: [facility] 09-18-2023 11:54-0400 Body weight 93.89 kg Otoniel Masci DO Work Phone: [facility] 09-18-2023 11:54-0400 Diastolic blood pressure 82 mm[Hg] Otoniel Masci DO Work Phone: [facility] 09-18-2023 11:54-0400 Heart rate 68 /min Otoniel Masci DO Work Phone: [facility] 09-18-2023 11:54-0400 SaO2% (BldA) [Mass fraction] 98 % Otoniel Masci DO Work Phone: [facility] 09-18-2023 11:54-0400 Systolic blood pressure 135 mm[Hg] Otoniel Acostai DO Work Phone: [facility] 06-26-2023 15:07-0400 Body weight 89.81 kg Andrey Art SET UP PERSON.TRIAL COURT JUSTICE Work Phone: [facility] 06-26-2023 15:07-0400 Diastolic blood pressure 66 mm[Hg] Andrey Art SET UP PERSON.TRIAL COURT JUSTICE Work Phone: [facility] 06-26-2023 15:07-0400 Heart rate 74 /min Andrey Art SET UP PERSON.TRIAL COURT JUSTICE Work Phone: [facility] 06-26-2023 15:07-0400 Respiratory rate 16 /min Andrey Art SET UP PERSON.TRIAL COURT JUSTICE Work Phone: [facility] 06-26-2023 15:07-0400 Systolic blood pressure 120 mm[Hg] Andrey Art SET UP PERSON.TRIAL COURT JUSTICE Work Phone: [facility] 05-15-2023 08:10-0400 Body temperature 97.7 [degF] Dr. Noman Dean Work Phone: [facility] 05-15-2023 08:10-0400 Diastolic blood pressure 67 mm[Hg] Dr. Noman Dean Work Phone: 4(553)241-185681 [place] [address] 05-15-2023 08:10-0400 Heart rate 68 /min Dr. Noman Dean Work Phone: 9(753)436-501681 [place] [address] 05-15-2023 08:10-0400 Respiratory rate 18 /min Dr. Noman Dean Work Phone: 6(334)321-579758 [place] [address] 05-15-2023 08:10-0400 SaO2% (BldA) [Mass fraction] 98 % Dr. Noman Dean Work Phone: 4(791)360-844058 [place] [address] 05-15-2023 08:10-0400 Systolic blood pressure 108 mm[Hg] Dr. Noman Dean Work Phone: 1(427)701-105858 [place] [address] 05-15-2023 06:50-0400 Body height 187.[address] Noman Dean Work Phone: 1(440)327-978258 [place] [address] 05-15-2023 06:50-0400 Body mass index (BMI) [Ratio] 24.6 kg/m2 Dr. Noman Dean Work Phone: 8(292)251-189858 [place] [address] 05-15-2023 06:50-0400 Body weight 87.[address] Noman Dean Work Phone: 6(009)355-864058 [place] [address] 03-28-2023 08:55-0400 Body temperature 96.49 [degF] Noman Dean DO Work Phone: 8(919)126-463266 [place] [address] 03-28-2023 08:55-0400 Body weight 90.27 kg Noman Dean DO Work Phone: 0(592)580-974566 [place] [address] 03-28-2023 08:55-0400 Diastolic blood pressure 60 mm[Hg] Noman Dean DO Work Phone: 8(467)819-911266 [place] [address] 03-28-2023 08:55-0400 Heart rate 76 /min Noman Dean DO Work Phone: [facility] 03-28-2023 08:55-0400 Respiratory rate 16 /min Noman Dean DO Work Phone: 0(148)302-748366 [place] [address] 03-28-2023 08:55-0400 Systolic blood pressure 110 mm[Hg] Noman Dean DO Work Phone: [facility] 03-25-2023 15:08-0400 Body mass index (BMI) [Ratio] 25.4 kg/m2 Dr. Noman Dean Work Phone: [facility] 03-25-2023 15:08-0400 Body weight 89.[address] Noman Dean Work Phone: [facility] 03-25-2023 15:08-0400 Diastolic blood pressure 80 mm[Hg] Dr. Noman Dean Work Phone: [facility] 03-25-2023 15:08-0400 Heart rate 69 /min Dr. Noman Dean Work Phone: [facility] 03-25-2023 15:08-0400 SaO2% (BldA) [Mass fraction] 98 % Dr. Noman Dean Work Phone: [facility] 03-25-2023 15:08-0400 Systolic blood pressure 134 mm[Hg] Dr. Noman Dean Work Phone: [facility] 03-24-2023 09:38-0400 Body height 183.3 cm Otoniel Acostai DO Work Phone: [facility] 03-24-2023 09:38-0400 Body weight 90.49 kg Otoniel Acostai DO Work Phone: [facility] 03-24-2023 09:38-0400 Diastolic blood pressure 69 mm[Hg] Otoniel Acostai DO Work Phone: [facility] 03-24-2023 09:38-0400 Heart rate 67 /min Otoniel Masci DO Work Phone: [facility] 03-24-2023 09:38-0400 SaO2% (BldA) [Mass fraction] 99 % Otoniel Masci DO Work Phone: [facility] 03-24-2023 09:38-0400 Systolic blood pressure 111 mm[Hg] Otoniel Acostai DO Work Phone: [facility] 01-03-2023 13:42-0500 Body height 188 cm Pulm Wstr Work Phone: [facility] 01-03-2023 13:42-0500 Body weight 90.72 kg Pulm Wstr Work Phone: [facility] 12-31-2022 08:28-0500 Body temperature 98.01 [degF] Noman Dean DO Work Phone: [facility] 12-31-2022 08:28-0500 Body weight 89.81 kg Noman Dean DO Work Phone: [facility] 12-31-2022 08:28-0500 Diastolic blood pressure 80 mm[Hg] Noman Dean DO Work Phone: [facility] 12-31-2022 08:28-0500 Heart rate 64 /min Noman Dean DO Work Phone: [facility] 12-31-2022 08:28-0500 Respiratory rate 16 /min Noman Dean DO Work Phone: [facility] 12-31-2022 08:28-0500 Systolic blood pressure 120 mm[Hg] Noman Dean DO Work Phone: [facility] 12-25-2022 14:59-0500 Body weight 89.36 kg Harriett Abigail PA-C Work Phone: [facility] 12-25-2022 14:59-0500 Diastolic blood pressure 60 mm[Hg] Harriett Abigail PA-C Work Phone: [facility] 12-25-2022 14:59-0500 Heart rate 67 /min Harriett Abigail PA-C Work Phone: [facility] 12-25-2022 14:59-0500 Respiratory rate 18 /min Harriett Abigail PA-C Work Phone: [facility] 12-25-2022 14:59-0500 SaO2% (BldA) [Mass fraction] 97 % Harriett Abigail PA-C Work Phone: [facility] 12-25-2022 14:59-0500 Systolic blood pressure 100 mm[Hg] Harriett Gregorio PA-C Work Phone: [facility] 11-12-2022 08:55-0500 Body temperature 98.6 [degF] Noman Dean DO Work Phone: [facility] 11-12-2022 08:55-0500 Body weight 89.36 kg Noman Dean DO Work Phone: [facility] 11-12-2022 08:55-0500 Diastolic blood pressure 60 mm[Hg] Noman Dean DO Work Phone: [facility] 11-12-2022 08:55-0500 Heart rate 80 /min Noman Dean DO Work Phone: [facility] 11-12-2022 08:55-0500 Respiratory rate 16 /min Noman Dean DO Work Phone: [facility] 11-12-2022 08:55-0500 Systolic blood pressure 100 mm[Hg] Noman Dean DO Work Phone: [facility] 09-16-2022 15:14-0400 Body temperature 98.01 [degF] Otoniel Masci DO Work Phone: [facility] 09-16-2022 15:14-0400 Body weight 88 kg Otoniel Masci DO Work Phone: [facility] 09-16-2022 15:14-0400 Diastolic blood pressure 80 mm[Hg] Otoniel Masci DO Work Phone: [facility] 09-16-2022 15:14-0400 Heart rate 62 /min Otoniel Masci DO Work Phone: [facility] 09-16-2022 15:14-0400 Systolic blood pressure 123 mm[Hg] Otoniel Masci DO Work Phone: [facility] 08-13-2022 17:30-0400 Diastolic blood pressure 52 mm[Hg] Trenton Garcia MD Work Phone: [facility] 08-13-2022 17:30-0400 Heart rate 63 /min Trenton Garcia MD Work Phone: [facility] 08-13-2022 17:30-0400 Respiratory rate 16 /min Trenton Garcia MD Work Phone: [facility] 08-13-2022 17:30-0400 SaO2% (BldA) [Mass fraction] 99 % Trenton Garcia MD Work Phone: [facility] 08-13-2022 17:30-0400 Systolic blood pressure 105 mm[Hg] Trenton Garcia MD Work Phone: [facility] 08-13-2022 17:16-0400 Body temperature 97.5 [degF] Trenton Garcia MD Work Phone: [facility] 08-13-2022 16:35-0400 Body height 188 cm Trenton Garcia MD Work Phone: [facility] 08-13-2022 16:35-0400 Body weight 83.92 kg Trenton Garcia MD Work Phone: [facility] 08-13-2022 08:34-0400 Body temperature 97 [degF] Noman Dean DO Work Phone: [facility] 08-13-2022 08:34-0400 Body weight 84.82 kg Noman Dean DO Work Phone: [facility] 08-13-2022 08:34-0400 Diastolic blood pressure 80 mm[Hg] Noman Dean DO Work Phone: [facility] 08-13-2022 08:34-0400 Heart rate 68 /min Noman Dean DO Work Phone: [facility] 08-13-2022 08:34-0400 Respiratory rate 16 /min Noman Dean DO Work Phone: [facility] 08-13-2022 08:34-0400 Systolic blood pressure 120 mm[Hg] Noman Dean DO Work Phone: [facility] 05-22-2022 10:27-0400 Body temperature 98.8 [degF] Otoniel Masci DO Work Phone: [facility] 05-22-2022 10:27-0400 Body weight 82.56 kg Otoniel Masci DO Work Phone: [facility] 05-22-2022 10:27-0400 Diastolic blood pressure 69 mm[Hg] Otoniel Masci DO Work Phone: [facility] 05-22-2022 10:27-0400 Heart rate 70 /min Otoniel Masci DO Work Phone: [facility] 05-22-2022 10:27-0400 SaO2% (BldA) [Mass fraction] 98 % Otoniel Masci DO Work Phone: [facility] 05-22-2022 10:27-0400 Systolic blood pressure 121 mm[Hg] Otoniel Masci DO Work Phone: [facility] 05-21-2022 11:33-0400 Body weight 82.56 kg Ny Rodriguez SET UP PERSON.TRIAL COURT JUSTICE Work Phone: [facility] 05-21-2022 11:33-0400 Diastolic blood pressure 70 mm[Hg] Ny Rodriguez SET UP PERSON.TRIAL COURT JUSTICE Work Phone: [facility] 05-21-2022 11:33-0400 Heart rate 76 /min Ny Rodriguez SET UP PERSON.TRIAL COURT JUSTICE Work Phone: [facility] 05-21-2022 11:33-0400 SaO2% (BldA) [Mass fraction] 98 % Ny Rodriguez SET UP PERSON.TRIAL COURT JUSTICE Work Phone: [facility] 05-21-2022 11:33-0400 Systolic blood pressure 120 mm[Hg] Ny Rodriguez SET UP PERSON.TRIAL COURT JUSTICE Work Phone: [facility] 05-13-2022 13:30-0400 Body temperature 98.4 [degF] Noman Dean DO Work Phone: [facility] 05-13-2022 13:30-0400 Body weight 81.19 kg Noman Dean DO Work Phone: [facility] 05-13-2022 13:30-0400 Diastolic blood pressure 70 mm[Hg] Noman Dean DO Work Phone: [facility] 05-13-2022 13:30-0400 Heart rate 80 /min Noman Dean DO Work Phone: [facility] 05-13-2022 13:30-0400 Respiratory rate 16 /min Noman Dean DO Work Phone: [facility] 05-13-2022 13:30-0400 Systolic blood pressure 130 mm[Hg] Noman Dean DO Work Phone: [facility] Encounters Encounter Date Encounter Type Care Provider Facility Start: 04-15-2025 End: 04-15-2025 ambulatory NOMAN L DEAN Facility:[facility] Start: 03-25-2025 End: 03-25-2025 ambulatory NOMAN L DEAN Facility:[facility] Start: 02-17-2025 End: 02-17-2025 Telephone encounter Staci BESS Hematology/Oncology Comment on above: Social Work Services Start: 02-16-2025 End: 02-16-2025 ambulatory NOMAN L DEAN Facility:[facility] Start: 02-16-2025 End: 02-16-2025 Patient encounter procedure Noman Chirinosrison DO Work Phone: [facility] [place] Comment on above: Medicare annual well ness visit, subsequent (Primary Dx); Attention or concentration deficit; Multiple sclerosis (HCC); Bilateral leg pain; Multiple sclerosis, relapsing-remitting (HCC); RLS (restless legs syndrome); Malaise and fatigue; Imbalance; Hypothyroidism, acquired; Vitamin D deficiency; Vitamin B12 deficiency; Fatigue, unspecified type; Immunocompromised state (HCC); Essential hypertension, benign; CML (chronic myeloid leukemia) (HCC); Screening for AAA (abdominal aortic aneurysm); Carotid atherosclerosis, bilateral Start: 02-10-2025 End: 02-10-2025 ambulatory Shawanda Calderón MA [employer] Start: 02-10-2025 End: 02-10-2025 [facility] Comment on above: Population Health Na vigation Outreach (NICOLASA SILVER PCSA) Start: 01-26-2025 End: 01-31-2025 Telephone encounter Noman Dean DO Work Phone: Internal Medicine [place] Comment on above: Insurance Authorizat ion Start: 12-31-2024 End: 12-31-2024 ambulatory OTONIEL HEATON Facility:[facility] Start: 12-31-2024 End: 12-31-2024 Office outpatient visit 25 minutes Otoniel Heaton DO Work Phone: Hematology/Oncology Comment on above: CML (chronic myelocy tic leukemia) (HCC) (Primary Dx); Smoldering myeloma Start: 12-24-2024 End: 12-24-2024 ambulatory NOMAN Oliva DEAN Facility:[facility] Start: 12-17-2024 End: 12-17-2024 Specialty Pharmacy [facility] Comment on above: SPP Oral Oncology/he matology - Medication Refill (Scemblix 40 mg) Start: 11-22-2024 End: 11-22-2024 ambulatory NOMAN Hazel DEAN Facility:[facility] Start: 11-22-2024 End: 11-22-2024 Telephone encounter Noman Oliva Jermaine DO Work Phone: [facility] [place] Start: 11-18-2024 End: 11-18-2024 Specialty Pharmacy [facility] [place] Comment on above: SPP Oral Oncology/he matology - Medication Refill (Scemblix 40mg) Social Work Services Start: 11-17-2024 End: 11-17-2024 ambulatory NOMAN Hazel DEAN Facility:[facility] Start: 11-17-2024 End: 11-17-2024 Patient encounter procedure Noman Dean DO Work Phone: [facility] [place] Comment on above: Essential hypertensi on, benign (Primary Dx); Attention or concentration deficit; Multiple sclerosis (HCC); Bilateral leg pain; Multiple sclerosis, relapsing-remitting (HCC); RLS (restless legs syndrome); Malaise and fatigue; Imbalance; KNOX (dyspnea on exertion); LVH (left ventricular hypertrophy) Start: 11-17-2024 End: 11-17-2024 Telephone encounter Noman Oliva Dean DO Work Phone: Family Medicine [place] Comment on above: Medication Request Start: 10-21-2024 End: 10-21-2024 Specialty Pharmacy [facility] Comment on above: SPP Oral Oncology/he matology - Medication Refill (Scemblix 40 mg) Start: 10-20-2024 End: 10-20-2024 Refill Otoniel Heaton DO Work Phone: Hematology/Oncology Comment on above: Refill Request Start: 10-11-2024 End: 10-11-2024 [facility] Facility:[facility] Start: 10-11-2024 End: 10-11-2024 Patient encounter procedure Jose Maria Dominguez APRN.TRIAL COURT JUSTICE Work Phone: Pulmonary Medicine Comment on above: Lung nodule (Primary Dx); Encounter for screening for lung cancer; Tobacco use current Start: 10-07-2024 End: 10-07-2024 [facility] Facility:[facility] Start: 10-07-2024 End: 10-07-2024 Subsequent hospital visit by physician Jovani [facility] (I-Stat) Work Phone: Cat Scan Comment on above: Encounter for screen ing for lung cancer [Z12.2] Start: 09-29-2024 End: 10-05-2024 Telephone encounter Jose Maria Dominguez APRN.TRIAL COURT JUSTICE Work Phone: Pulmonary Medicine Comment on above: Patient Question; Or ders Start: 09-15-2024 End: 09-15-2024 Specialty Pharmacy [facility] Comment on above: SPP Oral Oncology/he matology - Medication Refill (Scemblix 40 mg) Start: 09-14-2024 End: 09-15-2024 Telephone encounter Otoniel Heaton DO Work Phone: Hematology/Oncology Start: 09-12-2024 End: 09-16-2024 Telephone encounter Otoniel Heaton DO Work Phone: Hematology/Oncology Comment on above: Results Start: 09-10-2024 End: 09-10-2024 ambulatory Anabela Trejo SET UP PERSON.TRIAL COURT JUSTICE Work Phone: Hematology/Oncology Comment on above: CML (chronic myelocy tic leukemia) (HCC) (Primary Dx); Smoldering myeloma Start: 09-10-2024 End: 09-10-2024 Patient encounter procedure Anabela Trejo SET UP PERSON.TRIAL COURT JUSTICE Work Phone: Hematology/Oncology Start: 09-07-2024 End: 09-07-2024 ambulatory OTONIEL HEATON Facility:[facility] Start: 09-06-2024 End: 09-06-2024 Telephone encounter Otoniel Heaton DO Work Phone: Hematology/Oncology Comment on above: Refill Request Start: 09-01-2024 End: 09-01-2024 Telephone encounter Staci BESS Hematology/Oncology Comment on above: 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) Start: 09-01-2024 End: 09-01-2024 [facility] Start: 09-01-2024 End: 09-01-2024 Patient encounter procedure Mckenna Garcia PA-C Work Phone: [facility] Comment on above: Multiple sclerosis ( HCC) (Primary Dx); Multiple sclerosis, relapsing-remitting (HCC); RLS (restless legs syndrome); Malaise and fatigue; Imbalance Start: 09-01-2024 End: 09-01-2024 ambulatory MCKENNA GARCIA Facility:[facility] Start: 09-01-2024 End: 09-01-2024 Subsequent hospital visit by physician Mri 4 [employer] Main Q (I-Stat/1.5t/3t) Work Phone: MRI Q Comment on above: Multiple sclerosis ( HCC) [G35] Start: 08-31-2024 End: 08-31-2024 Refill Otoniel Heaton DO Work Phone: Hematology/Oncology Comment on above: Med Change Request Start: 08-26-2024 End: 08-26-2024 Telephone encounter Staci BESS Hematology/Oncology Comment on above: 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) Start: 08-25-2024 End: 08-25-2024 ambulatory Pulm Lab [facility] Work Phone: PULM LAB [facility] Comment on above: Spirometry Start: 08-25-2024 End: 08-25-2024 Patient encounter procedure Pulm Lab [facility] Work Phone: PULM LAB [facility] Comment on above: 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 Comment on above: SPP Oral Oncology/he matology - Medication Refill (Scemblix 40 mg) Start: 08-10-2024 End: 08-10-2024 Refill Noman Dean DO Work Phone: [facility] [place] Comment on above: Refill Request Start: 07-20-2024 End: 07-20-2024 Refill Andrey Art APRN.CNP Work Phone: [facility] [place] Comment on above: Refill Request Start: 07-19-2024 End: 07-19-2024 Specialty Pharmacy [facility] Comment on above: SPP Oral Oncology/he matology - Medication Refill (Scemblix) Start: 07-01-2024 Telephone encounter Mckenna elise PA-C Work Phone: Neurology Comment on above: Appointment (Called to schedule MRI before next appointment with Mckenna Garcia) Start: 06-28-2024 Refill Mckenna Garcia PA-C Work Phone: [facility] Comment on above: Refill Request Start: 06-23-2024 End: 06-23-2024 ambulatory Charly Parada Facility:[facility] Start: 06-15-2024 Specialty Pharmacy Eleanor [facility] Comment on above: SPP Oral Oncology/he matology - Medication Refill (Scemblix) Start: 06-14-2024 Refill Harriett Rocha PA-C Work Phone: Pulmonary Medicine Comment on above: Refill Request Start: 06-10-2024 End: 06-10-2024 ambulatory OTONIEL HEATON Facility:[facility] Start: 06-10-2024 Telephone encounter Otoniel mayen DO Work Phone: Hematology/Oncology Comment on above: Orders requesting a urine l ab Start: 05-18-2024 End: 05-18-2024 ambulatory NOMAN DEAN Facility:[facility] Start: 05-18-2024 End: 05-18-2024 Patient encounter procedure Noman Dean DO Work Phone: Family [facility] Comment on above: Vitamin D deficiency (Primary Dx); Attention deficit disorder, unspecified hyperactivity presence; Attention deficit disorder, unspecified hyperactivity presence; Multiple sclerosis (HCC); Bilateral leg pain; Vitamin B12 deficiency; Medication monitoring encounter; Multiple myeloma not having achieved remission (HCC); Other schizophrenia (HCC); PAD (peripheral artery disease) (HCC) Start: 05-17-2024 Specialty Pharmacy Eleanor Brown [facility] Comment on above: SPP Oral Oncology/he matology - Medication Refill (Scemblix) Start: 04-23-2024 Refill Otoniel Padilla Work Phone: Hematology/Oncology Comment on above: Refill Request Start: 04-22-2024 Specialty Pharmacy Eleanor Brown [facility] Comment on above: SPP Oral Oncology/he matology - Medication Refill (Scemblix) Start: 04-21-2024 Refill Otoniel Hull O Work Phone: Hematology/Oncology Comment on above: Refill Request Start: 04-17-2024 Refill Harriett Rocha PA-C Work Phone: Pulmonary Medicine Comment on above: Refill Request Start: 04-14-2024 Encounter for other preprocedural examination Jade Olsen [facility] Start: 03-29-2024 Refill Noman aragon DO Work Phone: [facility] Comment on above: Refill Request Start: 03-24-2024 Refill Maria Dolores Randall [address] JUSTICE Work Phone: [facility] Comment on above: Refill Request Patient Request Start: 03-22-2024 Specialty Pharmacy [facility] Comment on above: SPP Oral Oncology/he matology - Medication Refill (Scemblix) Start: 03-14-2024 Refill Mckenna Garcia PA-C Work Phone: [facility] Comment on above: Refill Request Start: 03-12-2024 End: 03-12-2024 ambulatory Otoniel Heaton DO Work Phone: Hematology/Oncology Comment on above: CML (chronic myeloid leukemia) (HCC) (Primary Dx); Smoldering myeloma Start: 03-12-2024 End: 03-12-2024 Patient encounter procedure Otoniel Heaton DO Work Phone: [facility] Start: 03-03-2024 Orders Only Otoniel Heaton D O Work Phone: Hematology/Oncology Comment on above: CML (chronic myeloid leukemia) (HCC) (Primary Dx); Smoldering myeloma Start: 03-01-2024 Telephone encounter Otoniel mayen DO Work Phone: Hematology/Oncology Comment on above: Results Start: 02-18-2024 ambulatory Jade Olsen Facilit y:[facility] Start: 02-18-2024 Non-patient / Non-visit Dr. Sarah Dean Work Phone: [facility] Start: 02-18-2024 End: 02-18-[address] Noman Dean Work Phone: [facility] Work Phone: Start: 02-18-2024 End: 02-18-[address] Noman Dean Work Phone: [facility] Work Phone: Start: 02-18-2024 End: 02-18-2024 ambulatory Otoniel Heaton Facility:[facility] Start: 02-17-[address] Noman Dean Work Phone: [facility] Start: 02-04-2024 Telephone encounter Otoniel mayen DO Work Phone: Hematology/Oncology Comment on above: BMBX Orders Start: 02-04-2024 End: 02-04-2024 Subsequent hospital visit by physician [facility] Work Phone: Radiology Comment on above: Foot pain, bilateral [M79.671, M79.672] Start: 02-04-2024 End: 02-04-2024 Patient encounter procedure Noman Dean DO Work Phone: [facility] Comment on above: Weight gain (Primary Dx); Multiple sclerosis (HCC); Bilateral leg pain; Attention deficit disorder, unspecified hyperactivity presence; Attention deficit disorder, unspecified hyperactivity presence; Fatigue, unspecified type; Vitamin B12 deficiency; Stage 2 moderate COPD by GOLD classification ([facility]); Vitamin D deficiency; ED (erectile dysfunction) of organic origin; Foot pain, bilateral; Multiple myeloma not having achieved remission ([facility]); Immunocompromised state ([facility]); Other schizophrenia ([facility]); PAD (peripheral artery disease) ([facility]) Start: 01-30-2024 Specialty Pharmacy [facility]r Thompson [facility] Comment on above: SPP Oral Oncology/he matology - Medication Refill (Scemblix 40mg) Start: 01-14-2024 Refill Mckenna Garcia PA-C Work Phone: [facility] Comment on above: Refill Request Start: 01-12-2024 Non-patient / Non-visit Dr. Sarah Dean Work Phone: [facility] Start: 01-12-2024 End: 01-12-2024 Admission to same day surgery center Dr. Noman Dean Work Phone: [facility] Work Phone: Start: 01-12-2024 End: 01-12-[address] Noman Dean Work Phone: [facility] Work Phone: Start: 01-07-2024 End: 01-07-[address] Noman Dean Work Phone: [facility] Work Phone: Start: 01-07-2024 End: 01-07-[address] Noman Dean Work Phone: [facility], [facility] Work Phone: Start: 01-07-2024 End: 01-07-2024 ambulatory [facility] Facility:[facility] Start: 01-02-2024 Specialty Pharmacy [facility] Comment on above: SPP Oral Oncology/he matology - Medication Refill (Scemblix) Start: 11-12-2023 Telephone encounter Noman vega DO Work Phone: [facility] [place] Start: 11-05-2023 End: 11-05-2023 [facility] Comment on above: SPP Oral Oncology/he matology - Medication Refill (Scemblix 40mg) Vitamin B12 deficien cy (Primary Dx); Atypical nevus of left upper back excluding scapular region; Atypical nevus of left lower back; Multiple myeloma not having achieved remission (HCC) Start: 10-30-2023 End: 10-30-[address] Noman Dean Work Phone: [facility] Gastroenterology Work Phone: Start: 10-30-2023 End: 10-30-2023 ambulatory [facility] Facility:[facility] Start: 10-13-2023 Specialty Pharmacy [facility] Thompson [facility] Comment on above: SPP Oral Oncology/he matology - Medication Refill (scemblix) Start: 09-23-2023 Refill Noman aragon DO Work Phone: [facility] [place] Comment on above: Refill Request Start: 09-19-2023 Telephone encounter Harriett BESS Work Phone: Hematology/Oncology Comment on above: Distress Assessment Start: 09-18-2023 End: 09-18-2023 ambulatory Otoniel Heaton DO Work Phone: Hematology/Oncology Comment on above: CML (chronic myeloid leukemia) (HCC) (Primary Dx); Smoldering myeloma; Need for influenza vaccination Start: 09-18-2023 End: 09-18-2023 Patient encounter procedure Otoniel Heaton DO Work Phone: [facility] Start: 09-15-2023 Refill Noman aragon DO Work Phone: [facility] [place] Comment on above: Refill Request Start: 09-05-2023 Orders Only Otoniel Heaton D O Work Phone: Hematology/Oncology Comment on above: CML (chronic myeloid leukemia) (HCC) (Primary Dx); Smoldering myeloma Start: 08-25-2023 Telephone encounter Mckenna elise PA-C Work Phone: [facility] Comment on above: Appointment ([facility] FOR PATIENT TO CALL SO WE CAN GET HIM SCHEDULED FOR A FOLLOW UP WITH MCKENNA GARCIA) Start: 08-20-2023 Telephone encounter Noman vega DO Work Phone: [facility] [place] Comment on above: Results Start: 08-19-2023 Specialty Pharmacy [facility] Thompson [facility] Comment on above: SPP Oral Oncology/he matology - Medication Refill (Scemblix 40mg.) Start: 07-25-2023 Telephone encounter Otoniel mayen DO Work Phone: Hematology/Oncology Comment on above: Refill Request Start: 07-21-2023 Specialty Pharmacy [facility] Thompson [facility] Comment on above: SPP Oral Oncology/he matology - Medication Refill (Scemblix 40mg.) Start: 07-18-2023 Orders Only Otoniel Padilla Work Phone: Hematology/Oncology Comment on above: CML (chronic myeloid leukemia) (HCC) (Primary Dx); Smoldering myeloma Start: 06-26-2023 End: 06-26-2023 Patient encounter procedure Andrey Blocksussy [facility] JUSTICE Work Phone: [facility] [place] Comment on above: Tachypnea (Primary D x); Bilateral leg pain; Multiple sclerosis (HCC); Attention deficit disorder, unspecified hyperactivity presence; Attention deficit disorder, unspecified hyperactivity presence; Chest pain, unspecified type Start: 06-25-2023 Telephone encounter Noman vega DO Work Phone: [facility] [place] Comment on above: Results Start: 06-17-2023 Telephone encounter Otoniel mayen DO Work Phone: Hematology/Oncology Comment on above: Results Start: 06-13-2023 Orders Only Otoniel Padilla Work Phone: Hematology/Oncology Comment on above: CML (chronic myelocy tic leukemia) (HCC) (Primary Dx); MGUS (monoclonal gammopathy of unknown significance); Immunocompromised state (HCC) Start: 06-05-2023 Refill Beth Mims PA-C Work Phone: Gastroenterology Comment on above: Refill Request Start: 06-02-2023 Refill Noman Freeman margo DO Work Phone: [facility] [place] Comment on above: Refill Request Start: 05-30-2023 Telephone encounter Ros Ayala RN He matology/Oncology Comment on above: Final Cleaner - O ther (Oral Anti-Cancer Agents Education (asciminib) ) Start: 05-27-2023 Refill Noman aragon DO Work Phone: [facility] [place] Comment on above: Refill Request Start: 05-26-2023 ambulatory Carlito Berg [facility] Start: 05-26-2023 Patient encounter procedure Carlito Berg [facility] Comment on above: Insurance Authorizat ion (Pending PA submission. ); SPP Oral Oncology/hematology - Treatment Referral (Scemblix 40mg.) Start: 05-25-2023 Telephone encounter Otoniel mayen DO Work Phone: Hematology/Oncology Comment on above: Follow Up Start: 05-21-2023 Specialty Pharmacy [facility]ito Abel [facility] Comment on above: SPP Oral Oncology/he matology - Medication Refill (Sprycel 80mg.) Start: 05-15-2023 Non-patient / Non-visit Dr. Sarah Dean Work Phone: [facility] Start: 05-15-2023 End: 05-15-2023 Admission to same day surgery center Dr. Noman Dean Work Phone: [facility] Start: 05-15-2023 End: 05-15-[address] Noman Dean Work Phone: [facility] Work Phone: Start: 05-01-2023 Refill Noman aragon DO Work Phone: [facility] Comment on above: Refill Request Start: 04-02-2023 Telephone encounter Nurse Winn [facility] Work Phone: General Surgery Comment on above: Request for Medical Records (2020 through current year: EGD, colonoscopy and pathology results. ) Refill Request Start: 03-28-2023 End: 03-28-2023 Patient encounter procedure Noman Dean DO Work Phone: [facility] Comment on above: Attention deficit di sorder, unspecified hyperactivity presence (Primary Dx); Bilateral leg pain; Multiple sclerosis (HCC); CML (chronic myeloid leukemia) (HCC); Vitamin B12 deficiency; Vitamin D deficiency; Other hyperlipidemia; Hyperglycemia; Attention deficit disorder, unspecified hyperactivity presence; PAD (peripheral artery disease) (HCC); Immunocompromised state (HCC); Other schizophrenia (HCC) Start: 03-26-2023 Specialty Pharmacy [facility]ito Abel [facility] Comment on above: SPP Oral Oncology/he matology - Medication Refill (Sprycel) Start: 03-25-2023 End: 03-25-[address] Noman Dean Work Phone: [facility] Gastroenterology Start: 03-24-2023 End: 03-24-2023 ambulatory Otoniel Heaton DO Work Phone: Hematology/Oncology Comment on above: CML (chronic myeloid leukemia) (HCC) (Primary Dx); MGUS (monoclonal gammopathy of unknown significance); Immunocompromised state (HCC) Refill Request Start: 03-24-2023 End: 03-24-2023 Patient encounter procedure Otoniel Heaton DO Work Phone: [facility] Start: 03-18-2023 End: 03-18-2023 Subsequent hospital visit by physician Mri Radio [facility] (I-Stat/1.5t) Work Phone: Radiology Comment on above: Multiple sclerosis ( HCC) [G35] Start: 03-17-2023 End: 03-17-2023 ambulatory Lab/[place] [facility] Work Phone: Hematology/Oncology Comment on above: Smoldering myeloma ( Primary Dx) Start: 03-14-2023 Orders Only Otoniel Padilla Work Phone: Hematology/Oncology Comment on above: CML (chronic myeloid leukemia) (HCC) (Primary Dx); Smoldering myeloma Start: 03-04-2023 Refill Ny Rodriguez APR, N.CNP Work Phone: Gastroenterology Comment on above: Refill Request Start: 02-24-2023 Refill Noman aragon DO Work Phone: [facility] Comment on above: Refill Request Start: 02-20-2023 Specialty Pharmacy [facility]ito Abel Ph [facility] Comment on above: SPP Oral Oncology/he matology - Medication Refill (Sprycel) Start: 01-30-2023 Refill Noman aragon DO Work Phone: [facility] Comment on above: Refill Request Start: 01-27-2023 Specialty Pharmacy [facility]ito Abel [facility] Comment on above: SPP Oral Oncology/he matology - Medication Refill (Sprycel 80mg) Start: 01-10-2023 Refill Ny Rodriguez APR N.TRIAL COURT JUSTICE Work Phone: Gastroenterology Comment on above: Refill Request Start: 01-07-2023 End: 01-07-2023 Patient encounter procedure Miriam Arboleda OD Work Phone: Ophthalmology Comment on above: 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 Comment on above: SPP Oral Oncology/he matology - Medication Refill (Sprycel) Spirometry Start: 01-02-2023 Refill Otoniel Padilla Work Phone: Hematology/Oncology Comment on above: Refill Request Start: 01-01-2023 Telephone encounter Mindy Luís ambrose [address] JUSTICE Work Phone: [facility] Comment on above: Appointment Start: 12-31-2022 End: 12-31-2022 Patient encounter procedure Noman Dean DO Work Phone: [facility] [place] Comment on above: Atypical nevus of ri ght upper back excluding scapular region (Primary Dx); Attention deficit disorder, unspecified hyperactivity presence; Bilateral leg pain; Multiple sclerosis (HCC); Attention deficit disorder, unspecified hyperactivity presence; Atypical nevus of back; Atypical nevus of flank; Atypical nevus of left lower back Start: 12-29-2022 Refill Maria Dolores Randall APRN.TRIAL COURT JUSTICE Work Phone: [facility] [place] Comment on above: Refill Request Start: 12-25-2022 End: 12-25-2022 Patient encounter procedure Harriett Gregorio PA-C Work Phone: Pulmonary Medicine Comment on above: Stage 2 moderate TIMBER POISONER D by GOLD classification ([facility]) (Primary Dx); Chest pain, unspecified type; Dyspnea and respiratory abnormalities; Abnormal CT scan, lung; Gastroesophageal reflux disease, unspecified whether esophagitis present; Dysphagia, unspecified type Start: 12-17-2022 Refill Noman aragon DO Work Phone: [facility] [place] Comment on above: Refill Request Patient Request Start: 12-13-2022 Orders Only Otoniel Padilla Work Phone: Hematology/Oncology Comment on above: CML (chronic myelocy tic leukemia) ([facility]) (Primary Dx); Smoldering myeloma Start: 12-12-2022 Refill Noman aragon DO Work Phone: [facility] [place] Comment on above: Refill Request Start: 12-09-2022 End: 12-09-2022 Patient encounter procedure Jersey Cole MD Work Phone: Orthopaedics Comment on above: Right lateral epicon dylitis (Primary Dx) Start: 12-05-2022 Telephone encounter Noman vega DO Work Phone: [facility] [place] Comment on above: Patient Question Start: 12-01-2022 Refill Maria Dolores Randall SET UP PERSON.TRIAL COURT JUSTICE Work Phone: [facility] [place] Comment on above: Refill Request Start: 11-19-2022 Specialty Pharmacy Carlito Abel [facility] Comment on above: SPP Oral Oncology/he matology - Medication Refill (Sprycel) Results - Ct Start: 11-18-2022 End: 11-18-2022 Refill Edgar Longoria SET UP PERSON.TRIAL COURT JUSTICE Work Phone: [facility] [place] Comment on above: Refill Request Wheezing [R06.2] Start: 11-12-2022 End: 11-12-2022 Patient encounter procedure Noman Dean DO Work Phone: [facility] [place] Comment on above: Attention deficit di sorder, unspecified hyperactivity presence (Primary Dx); Wheezing; Tobacco use; Multiple sclerosis (HCC); Bilateral leg pain; Stage 2 moderate COPD by GOLD classification (HCC); Gastroesophageal reflux disease with esophagitis without hemorrhage; CML (chronic myeloid leukemia) (HCC); PAD (peripheral artery disease) (HCC) Start: 10-30-2022 End: 10-30-2022 ambulatory JERSEY CLOE Facility:[facility] Start: 10-23-2022 Specialty Pharmacy [facility] Sarwat patel [facility] Comment on above: SPP Oral Oncology/he matology - Medication Refill (Sprycel) Start: 10-22-2022 End: 10-22-2022 Patient encounter procedure Michelle Zambrano SET UP PERSON.TRIAL COURT JUSTICE Work Phone: Pulmonary Medicine Comment on above: No-show for appointm ent (Primary Dx) Start: 10-13-2022 Refill Edgar cordero APRN.TRIAL COURT JUSTICE Work Phone: [facility] [place] Comment on above: Refill Request Start: 10-10-2022 Telephone encounter Padmini menchaca PA-C Work Phone: Pre Anesthesia Comment on above: Pre-Op Update (No sh ow to [facility]) Start: 10-08-2022 Refill Noman aragon DO Work Phone: [facility] [place] Comment on above: Refill Request Start: 10-03-2022 Telephone encounter Jersey chapman MD Work Phone: Orthopaedics Comment on above: Schedule Surgery Start: 10-03-2022 End: 10-03-2022 Patient encounter procedure Jersey Cole MD Work Phone: Orthopaedics Comment on above: De Quervain's tenosy novitis (Primary Dx); Left elbow pain; Chronic elbow pain, right Start: 09-24-2022 Refill Otoniel Padilla Work Phone: Hematology/Oncology Comment on above: Refill Request Start: 09-20-2022 Telephone encounter Staci BESS Hematology/Oncology Comment on above: Social Work Services Start: 09-16-2022 End: 09-16-2022 ambulatory Otoniel Heaton DO Work Phone: Hematology/Oncology Comment on above: CML (chronic myeloid leukemia) (HCC) (Primary Dx); Smoldering myeloma Start: 09-16-2022 End: 09-16-2022 Patient encounter procedure Otoniel Heaton DO Work Phone: [facility] Start: 09-07-2022 Refill Ny Rodriguez APR N.TRIAL COURT JUSTICE Work Phone: Gastroenterology Comment on above: Refill Request Start: 09-02-2022 Telephone encounter Otoniel mayen DO Work Phone: Hematology/Oncology Comment on above: Orders Start: 09-02-2022 End: 09-02-2022 Subsequent hospital visit by physician Bone Density [facility] Work Phone: Radiology Comment on above: Screening for osteop orosis [Z13.820] Start: 08-28-2022 Specialty Pharmacy Carlito Abel Ph [facility] Comment on above: SPP Oral Oncology/he matology - Medication Refill (Sprycel) Start: 08-23-2022 End: 08-23-2022 ambulatory JERSEY CAMPBELLSPORT Facility:[facility] Start: 08-15-2022 ambulatory Grace hammer SET UP PERSON.TRIAL COURT JUSTICE Work Phone: Pulmonary Medicine Start: 08-14-2022 Telephone encounter Noman vega DO Work Phone: [facility] [place] Comment on above: Results Start: 08-13-2022 End: 08-13-2022 Subsequent hospital visit by physician Trenton Garcia MD Work Phone: Gastroenterology Comment on above: Abdominal pain, unsp ecified abdominal location [R10.9] Start: 08-13-2022 End: 08-13-2022 Patient encounter procedure Noman Dean DO Work Phone: [facility] [place] Comment on above: Bilateral leg pain ( Primary Dx); Need for influenza vaccination; Multiple sclerosis (HCC); Attention deficit disorder, unspecified hyperactivity presence; Attention deficit disorder, unspecified hyperactivity presence; Screening for osteoporosis; CML (chronic myeloid leukemia) (HCC); Vitamin D deficiency; Other hyperlipidemia; Vitamin B12 deficiency; Other specified disorders of bone density and structure, multiple sites Start: 08-12-2022 Telephone encounter Jersey chapman MD Work Phone: Orthopaedics Comment on above: Schedule Surgery Start: 08-08-2022 End: 08-08-2022 Patient encounter procedure Jersey Cole MD Work Phone: Orthopaedics Comment on above: Chronic elbow pain, left (Primary Dx); Lateral epicondylitis of both elbows Refill Request; Refi ll Request Start: 08-06-2022 Telephone encounter Aby Marin RNgraphics software engineer Comment on above: Appointment Confirma tion (Pre-procedure instructions) Start: 08-03-2022 Refill Maria Dolores Zur[place] k SET UP PERSON.TRIAL COURT JUSTICE Work Phone: [facility] [place] Comment on above: Refill Request Start: 07-31-2022 Specialty Pharmacy Carlito [facility] Comment on above: SPP Oral Oncology/he matology - Medication Refill (Sprycel 80mg) Start: 07-25-2022 End: 07-25-2022 Patient encounter procedure Miriam Arboleda OD Work Phone: Ophthalmology Comment on above: 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 (Primary Dx); Myopia, bilateral; Presbyopia Start: 07-24-2022 Telephone encounter Jersey chapman MD Work Phone: Orthopaedics Comment on above: Question Start: 07-18-2022 Telephone encounter Ny Rodriguez APRN.TRIAL COURT JUSTICE [facility] Comment on above: Orders Start: 07-10-2022 Refill Maria Dolores Zurawic k SET UP PERSON.TRIAL COURT JUSTICE Work Phone: [facility] Comment on above: Refill Request Start: 07-03-2022 Orders Only Ny Menchaca.TRIAL COURT JUSTICE [facility] Comment on above: History of peptic ul cer disease (Primary Dx); Gastroesophageal reflux disease without esophagitis SPP Oral Oncology/he matology - Medication Refill (Sprycel) Orders Start: 07-02-2022 Refill Harriett Berny Rocha PA-C Work Phone: Pulmonary Medicine Comment on above: Refill Request Start: 07-02-2022 Telephone encounter Ny Rodriguez APRN.TRIAL COURT JUSTICE Work Phone: Gastroenterology [place] Comment on above: Orders Refill Request Start: 06-11-2022 Refill Ny Menchaca.TRIAL COURT JUSTICE Work Phone: Gastroenterology Comment on above: Refill Request Start: 06-10-2022 Refill Noman aragon DO Work Phone: [facility] Comment on above: Refill Request Start: 06-05-2022 Specialty Pharmacy Carlito Abel [facility] Comment on above: SPP Oral Oncology/he matology - Medication Refill (Sprycel 80mg) Start: 05-22-2022 End: 05-22-2022 ambulatory Otoniel Heaton DO Work Phone: Hematology/Oncology Comment on above: CML (chronic myeloid leukemia) (HCC) (Primary Dx); Smoldering myeloma Start: 05-22-2022 End: 05-22-2022 Patient encounter procedure Otoniel Heaton DO Work Phone: [facility] Start: 05-21-2022 Telephone encounter yN Rodriguez APRN.TRIAL COURT JUSTICE Work Phone: Gastroenterology Comment on above: Procedure (EGD) Start: 05-21-2022 End: 05-21-2022 Patient encounter procedure Ny Rodriguez APRN.TRIAL COURT JUSTICE Work Phone: Gastroenterology Comment on above: Gastroesophageal ref lux disease without esophagitis (Primary Dx); History of peptic ulcer disease; Pain of upper abdomen Start: 05-17-2022 End: 05-17-2022 Subsequent hospital visit by physician Jazmin [facility] Deras Work Phone: Radiology Comment on above: CML (chronic myeloid leukemia) (HCC) [C92.10] Start: 05-15-2022 Telephone encounter Blaire VelezRn) Mirella mayen RNlead android developer/Oncology Comment on above: Opened In Error Appointment Start: 05-14-2022 End: 05-14-2022 Orders Only Otoniel Heaton DO Work Phone: Hematology/Oncology Comment on above: CML (chronic myeloid leukemia) (HCC) (Primary Dx); Smoldering myeloma; Splenomegaly Multiple sclerosis ( HCC) [G35] Results Start: 05-13-2022 End: 05-13-2022 Patient encounter procedure Noman Dean DO Work Phone: [facility] Comment on above: Spontaneous bruising (Primary Dx); Bilateral leg pain; Multiple sclerosis (HCC); Vitamin D deficiency; Fatigue, unspecified type; Cervicalgia; CML (chronic myeloid leukemia) (HCC); PAD (peripheral artery disease) (HCC); Bruit of right carotid artery; Attention deficit disorder, unspecified hyperactivity presence Start: 05-04-2022 Refill Noman aragon DO Work Phone: [facility] Comment on above: Refill Request Start: 04-25-2022 Telephone encounter Noman mariscalpauly DO Work Phone: [facility] Comment on above: Patient Update; Thao ent Question Start: 04-15-2022 End: 04-15-2022 Subsequent hospital visit by physician Maki Cruz (I-Stat/3t) Work Phone: Radiology Comment on above: Vitamin D deficiency [E55.9] Start: 04-08-2022 ambulatory Carlito Berg [facility] Start: 04-08-2022 End: 04-08-2022 Nursing evaluation of patient and report Nurse Card Admin [facility] Work Phone: Cardiology Comment on above: Screening for ischem ic heart disease (Primary Dx) SPP Oral Oncology/he matology - Medication Refill (sprycel) Start: 04-08-2022 End: 04-08-2022 Subsequent hospital visit by physician Felecia Berry [facility] Work Phone: Nuclear Medicine Comment on above: Chest pain, unspecif ied type [R07.9] Start: 04-04-2022 End: 04-04-2022 Patient encounter procedure Jersey Cole MD Work Phone: Orthopaedics Comment on above: Chronic elbow pain, left (Primary Dx); Bilateral elbow joint pain; Lateral epicondylitis of both elbows Refill Request Start: 04-02-2022 End: 04-02-2022 Subsequent hospital visit by physician Jazmin [facility] Dreas Work Phone: Radiology Comment on above: Bilateral elbow join t pain [M25.521, M25.522] Start: 03-15-2022 Refill Edgar cordero APRNArabellaTRIAL COURT JUSTICE Work Phone: [facility] Comment on above: Refill Request Start: 03-12-2022 Specialty Pharmacy [facility] Sarwat patel [facility] Comment on above: SPP Oral Oncology/he matology - Medication Refill (Sprycel) Refill Request Start: 03-11-2022 Telephone encounter Ny Rodriguez APRN.TRIAL COURT JUSTICE Work Phone: Gastroenterology Comment on above: Calling about recent GI procedure results Start: 03-08-2022 Telephone encounter Jersey chapman MD Work Phone: Orthopaedics Comment on above: Appointment Start: 03-08-2022 End: 03-08-2022 Patient encounter procedure [facility] Start: 03-04-2022 End: 03-04-2022 Patient encounter procedure Shyann Sánchez Work Phone: Podiatry Comment on above: Open wound of toe, i nitial encounter (Primary Dx); Onychomycosis of toenail Start: 03-01-2022 Telephone encounter Noman vega DO Work Phone: [facility] Comment on above: Results Start: 02-27-2022 Orders Only Jersey Cole MD Work Phone: Orthopaedics Comment on above: Bilateral elbow join t pain (Primary Dx) Start: 02-25-2022 [address]ill Ny Menchaca.TRIAL COURT JUSTICE Work Phone: Gastroenterology Comment on above: Refill Request Start: 02-18-2022 End: 02-18-2022 ambulatory SHYANN SÁNCHEZ Facility:[facility] Start: 02-18-2022 Telephone encounter Ny Rodriugez APRN.TRIAL COURT JUSTICE Work Phone: Gastroenterology Comment on above: Patient Update Start: 01-22-2022 End: 01-22-2022 Subsequent hospital visit by physician Xr [facility] [employer] Work Phone: Radiology Comment on above: Smoldering myeloma [ D47.2] Acute pain of left k nee [M25.562] Start: 02-13-2021 End: 02-13-2021 Subsequent hospital visit by physician Xr [facility] [employer] Work Phone: Radiology Comment on above: Neck pain [M54.2] Start: 09-26-2020 End: 09-26-2020 Subsequent hospital visit by physician Xr [facility] [employer] Work Phone: Radiology Comment on above: CML (chronic myeloid leukemia) (HCC) [C92.10] Procedures Date Procedure Procedure Detail Performing Clinician Start: 09-01-2024 BRAIN & CERVICAL SPINE MRI DISCRETE DATA [facility] Provider Start: 09-01-2024 Mri brain brain stem w/o w/contrast material Mckenna Garcia [employer] Work Phone: Start: 08-25-2024 Spmtry w/vc expiratory lupillo w/wo mxml vol vntj Harriett Gregorio [employer] Work Phone: Start: 05-18-2024 Adult depression screening assessment Mckenna Garcia [employer] Work Phone: Start: 02-18-2024 Biopsy/Inj or Needle Placement Dr. Mary Dean Work Phone: Start: 02-04-2024 Radex foot complete minimum 3 views Jord gil Dean DO Work Phone: Start: 01-12-[address] Noman dumas Work Phone: Start: 01-07-[address] empt[address] study Dr[address] Noman Dean Work Phone: Start: 06-18-2023 Lipid 1996 panel - Serum or Plasma Oleksandr Thompson [facility] Start: 05-15-[address] Noman dumas Work Phone: Start: 03-18-2023 BRAIN & CERVICAL SPINE MRI DISCRETE DATA [facility] Provider Start: 03-18-2023 Mri brain brain stem w/o w/contrast material Mckenna Garcia PA-C Work Phone: Start: 11-18-2022 Ct thorax w/o contrast material Noman Dean DO Work Phone: Start: 09-02-2022 Dxa bone density study 1/> sites axial skel Noman Hazel Jhaverion DO Work Phone: Start: 08-13-2022 Esophagoscp rig transoral hypopharynx crv esoph Ny Rodriguez APRN.TRIAL COURT JUSTICE Work Phone: Start: 08-13-2022 INFLUENZA VACCINE QUADRIVALENT 6 MO - 64 YRS IM Noman Dean DO Work Phone: Start: 07-25-2022 Computerized ophthalmic imaging retina Miriam Arboleda OD Work Phone: Start: 06-07-2022 Adult depression screening assessment Noman Jhaverion DO Work Phone: Start: 05-20-2022 Adult depression screening assessment Ny Rodriguez APRN.TRIAL COURT JUSTICE Work Phone: Start: 05-17-2022 Radiologic exam chest 2 views Otoniel mayen DO Work Phone: Start: 05-14-2022 Ct soft tissue neck w/o contrast material Noman Chirinosrison DO Work Phone: Start: 04-15-2022 BRAIN & CERVICAL SPINE MRI DISCRETE DATA [facility] Provider Start: 04-15-2022 Mri brain brain stem w/o w/contrast material Mckenna Garcia PA-C Work Phone: Start: 04-13-2022 Adult depression screening assessment Mri (I-Stat/3t) Work Phone: Start: 04-08-2022 Myocardial spect multiple studies Noman Dean DO Work Phone: Start: 04-04-2022 Injection single tendon origin/insertion Jersey Cole MD Work Phone: Start: 04-02-2022 Radex elbow 2 views Jersey Cole MD Work Phone: Start: 03-08-2022 Radiologic examination of upper gastrointestinal tract and small bowel with serial films Start: 02-13-2022 Adult depression screening assessment Jersey Cole MD Work Phone: Start: 01-22-2022 Radiologic exam chest 2 views Otoniel mayen DO Work Phone: Start: 01-22-2022 Radiologic exam knee complete 4/more views Noman Chirinosrison DO Work Phone: Start: 12-26-2020 Colonoscopy Jersey Cole MD Work Phone: Start: 09-26-2020 Ecg routine ecg w/least 12 lds w/i&r Otoniel Licona Masci DO Work Phone: Start: 09-26-2020 Radiologic exam chest 2 views Otoniel Vu ci DO Work Phone: Plan of Treatment Date Care Activity Detail Author Start: 2035 PNEUMOCOCCAL (4 - PPSV23 if available, else PCV20) PNEUMOCOCCAL (4 - PPSV23 if available, else PCV20) [facility] Start: 2035 PNEUMOCOCCAL (4 - PPSV23 or PCV20) PNEUMOCOCCAL (4 - PPSV23 or PCV20) [facility] Start: 2035 Pneumococcal vaccination [facility] Start: 06-18-2028 Lipid 1996 panel - Serum or Plasma Lipid Screening [facility] Start: 06-18-2028 Lipid panel Lipid Screening [facility] Start: 06-18-2028 LIPID SCREEN LIPID SCREEN [facility] Start: 09-07-2027 Diabetes Screening Diabetes Screening [facility] Start: 06-10-2027 Diabetes Screening Diabetes Screening [facility] Start: 03-04-2027 Diabetes Screening Diabetes Screening [facility] Start: 01-23-2027 LIPID SCREEN LIPID SCREEN [facility] Start: 12-12-2026 Diabetes Screening Diabetes Screening [facility] Start: 10-15-2026 Diabetes Screening Diabetes Screening [facility] Start: 10-06-2026 Diabetes Screening Diabetes Screening [facility] Start: 09-10-2026 Diabetes Screening Diabetes Screening [facility] Start: 08-18-2026 Diabetes Screening Diabetes Screening [facility] Start: 06-18-2026 DIABETES SCREEN DIABETES SCREEN [facility] Start: 06-16-2026 DIABETES SCREEN DIABETES SCREEN [facility] Start: 03-17-2026 DIABETES SCREEN DIABETES SCREEN [facility] Start: 02-16-2026 Annual PCP Team Chronic Disease Visit Annual PCP Team Chronic Disease Visit [facility] Start: 02-16-2026 BP Controlled (<130/80) BP Controlled (<130/80) [facility] Start: 12-31-2025 BP Controlled (<130/80) BP Controlled (<130/80) [facility] Start: 12-26-2025 Colonoscopy COLONOSCOPY [facility] Start: 12-26-2025 COLORECTAL CANCER SCREENING COLORECTAL CANCER SCREENING [facility] Start: 12-26-2025 Screening for malignant neoplasm of colon [facility] Start: 12-16-2025 DIABETES SCREEN DIABETES SCREEN [facility] Start: 11-17-2025 Annual PCP Team Chronic Disease Visit Annual PCP Team Chronic Disease Visit [facility] Start: 11-17-2025 BP Controlled (<130/80) BP Controlled (<130/80) [facility] Start: 10-17-2025 End: 10-17-2025 Patient encounter procedure Cat Scan Comment on above: CT LUNG SCREENING 1 YR F/U Start: 10-07-2025 Screening for malignant neoplasm of lung Lung Cancer Screening [facility] Start: 09-13-2025 Pneumococcal Vaccine: 50+ (4 of 4 - PCV20 or PCV21) Pneumococcal Vaccine: 50+ (4 of 4 - PCV20 or PCV21) [facility] Start: 09-10-2025 BP Controlled (<130/80) BP Controlled (<130/80) [facility] Start: 09-02-2025 DIABETES SCREEN DIABETES SCREEN [facility] Start: 09-01-2025 BP Controlled (<130/80) BP Controlled (<130/80) [facility] Start: 08-25-2025 BP Controlled (<130/80) BP Controlled (<130/80) [facility] Start: 08-18-2025 Annual PCP Team Chronic Disease Visit Annual PCP Team Chronic Disease Visit [facility] Start: 08-18-2025 BP Controlled (<130/80) BP Controlled (<130/80) [facility] Start: 08-13-2025 DIABETES SCREEN DIABETES SCREEN [facility] Start: 07-01-2025 End: 07-01-2025 ambulatory 07/01/2025 11:00 AM EDT Visit (SP) Office Hematology/Oncology [address] [place] [address] Otoniel Heaton DO [address] [place] [address] 6MO OV / LABS 03/25 & 06/24* Hematology/Oncolog y Comment on above: 6MO OV / LABS 03/25 & 06/24* Start: 06-24-2025 End: 06-24-2025 ambulatory 06/24/2025 11:00 AM EDT Results Only Mykel Lucia [facility] Laboratory [address] [place] [address] CBC/CMP/Mg/Phos/Lipase/MM labs with urine/BCR/ABL1 p210 [facility] Laboratory Comment on above: CBC/CMP/Mg/Phos/Lipase/MM labs with urin e/BCR/ABL1 p210 Start: 05-18-2025 Annual PCP Team Chronic Disease Visit Annual PCP Team Chronic Disease Visit [facility] Start: 05-18-2025 Anxiety Screening Anxiety Screening [facility] Start: 05-18-2025 Depression Screening Depression Screening [facility] Start: 05-17-2025 DIABETES SCREEN DIABETES SCREEN [facility] Start: 05-16-2025 End: 05-16-2025 Patient encounter procedure 05/16/2025 11:00 AM EDT Office Visit Family Medicine [facility] [address] [place] [address] Noman Dean DO [address] [place] [address] 3 month follow up Family Medicine [facility] Comment on above: 3 month follow up Start: 05-13-2025 DIABETES SCREEN DIABETES SCREEN [facility] Start: 03-25-2025 End: 03-25-2025 ambulatory 03/25/2025 11:00 AM EDT Results Only Mykel Floreswn [facility] Laboratory [address] [place] [address] CBC/CMP/MAG/PHOS/Lipase [facility] Laboratory Comment on above: CBC/CMP/MAG/PHOS/Lipase Start: 03-12-2025 BP Controlled (<130/80) BP Controlled (<130/80) [facility] Start: 02-25-2025 End: 02-25-2025 Specialty Pharmacy [facility] Comment on above: Refill - Scemblix [30DS] 01/27 setting p t up for PAP : Screening for AAA (abdominal aortic aneurysm) [Z13.6] Carotid atherosclero sis, bilateral [I65.23] Start: 02-16-2025 End: 05-18-2025 25-hydroxyvitamin D3 [Mass/volume] in Serum or Plasma VITAMIN D 25 HYDROXY Lab Routine Multiple sclerosis, relapsing-remitting (HCC) RLS (restless legs syndrome) Vitamin D deficiency CML (chronic myeloid leukemia) (HCC) Expected: 02/16/2025, Expires: 05/18/2025 [facility] Work Phone: Comment on above: Expected: 02/16/2025, Expires: Start: 02-16-2025 End: 05-18-2025 Cobalamin (Vitamin B12) [Mass/volume] in Serum or Plasma VITAMIN B12 Lab Routine Multiple sclerosis, relapsing-remitting (HCC) RLS (restless legs syndrome) Vitamin B12 deficiency CML (chronic myeloid leukemia) (HCC) Expected: 02/16/2025, Expires: 05/18/2025 [facility] Comment on above: Expected: 02/16/2025, Expires: Start: 02-16-2025 End: 05-18-2025 Comprehensive metabolic 2000 panel - Serum or Plasma COMPREHENSIVE METABOLIC PANEL Lab Routine Multiple sclerosis, relapsing-remitting (HCC) RLS (restless legs syndrome) CML (chronic myeloid leukemia) (HCC) Expected: 02/16/2025, Expires: 05/18/2025 [facility] Comment on above: Expected: 02/16/2025, Expires: Start: 02-16-2025 End: 05-18-2025 Iron and Iron binding capacity panel - Serum or Plasma IRON AND TIBC Lab Routine Multiple sclerosis, relapsing-remitting (HCC) RLS (restless legs syndrome) CML (chronic myeloid leukemia) (HCC) Expected: 02/16/2025, Expires: 05/18/2025 [facility] Comment on above: Expected: 02/16/2025, Expires: Start: 02-16-2025 End: 05-18-2025 Magnesium [Mass/volume] in Serum or Plasma MAGNESIUM Lab Routine Multiple sclerosis, relapsing-remitting (HCC) RLS (restless legs syndrome) CML (chronic myeloid leukemia) (HCC) Expected: 02/16/2025, Expires: 05/18/2025 [facility] Comment on above: Expected: 02/16/2025, Expires: Start: 02-16-2025 End: 05-18-2025 Thyrotropin [Units/volume] in Serum or Plasma THYROID STIMULATING HORMONE Lab Routine Hypothyroidism, acquired Expected: 02/16/2025, Expires: 05/18/2025 [facility] Comment on above: Expected: 02/16/2025, Expires: Start: 02-16-2025 End: 05-18-2025 Thyroxine (T4) free [Mass/volume] in Serum or Plasma T4 FREE/FREE THYROXINE Lab Routine Hypothyroidism, acquired Expected: 02/16/2025, Expires: 05/18/2025 [facility] Comment on above: Expected: 02/16/2025, Expires: Start: 02-16-2025 End: 02-16-2025 Patient encounter procedure 02/16/2025 9:40 AM EDT Office Visit Family [place] [address] [facility] [place] [address] Noman Dean DO [address] [facility] [place] [id number] 3 month follow up Family [place] Comment on above: 3 month follow up Start: 02-11-2025 End: 02-11-2025 Specialty Pharmacy 02/11/2025 7:30 AM EDT Specialty Pharmacy [facility] [address] [place] [address] [place] [address] Pharmacist, [facility] [address] [place] [address] [place] [address] Refill - Scemblix [30DS] 01/27 setting pt up for PAP [facility] Comment on above: Refill - Scemblix [30DS] 01/27 setting p t up for PAP Start: 02-04-2025 End: 02-04-2025 Specialty Pharmacy 02/04/2025 7:15 AM EST Specialty Pharmacy [facility] [address] [place] [address] Pharmacist, [facility] [address] [place] [address] [place] [address] Refill - Scemblix [30DS] 01/27 setting pt up for PAP [facility] Comment on above: Refill - Scemblix [30DS] 01/27 setting p t up for PAP Start: 02-03-2025 Annual PCP Team Chronic Disease Visit Annual PCP Team Chronic Disease Visit [facility] Start: 02-03-2025 BP Controlled (<130/80) BP Controlled (<130/80) [facility] Start: 01-23-2025 DIABETES SCREEN DIABETES SCREEN [facility] Start: 01-10-2025 End: 01-10-2025 Specialty Pharmacy 01/10/2025 12:00 PM EST [facility]ty [facility]acy [facility] [address] [place] [address] Pharmacist, [facility] [address] [place] [address] [place] [address] Refill - Scemblix [30DS] CC#[id number] - yoly? UTR - D/C - 5th attempt. [facility] Comment on above: Refill - Scemblix [30DS] CC#[id number] - yoly ? UTR - D/C - 5th attempt. Start: 12-31-2024 End: 12-31-2024 ambulatory 12/31/2024 11:40 AM EST Visit (SP) Office Hematology/Oncology [address] [place] [address] Otoniel Heaton, DO [address] [place] [address] 3MO OV/LAB 12/24* Hematology/Oncolog y Comment on above: 3MO OV/LAB 12/24* Start: 12-24-2024 End: 12-24-2024 ambulatory 12/24/2024 9:30 AM EST Results Only Mykel Lucia [facility] Laboratory [address] [place] [address] CBC/PCR for BCR/ABL [facility] Laboratory Comment on above: CBC/PCR for BCR/ABL Start: 12-21-2024 End: 12-21-2024 Specialty Pharmacy 12/21/2024 7:45 AM EST Specialty Pharmacy [facility] [employer] [id number] [place] [address] [facility], [facility] [address] [facility] [place] [address] Refill - Scemblix [30DS] CC#[id number] - yoly? [facility] 12/17 [facility] Comment on above: Refill - Scemblix [30DS] CC#[id number] - yoly ? [place] 12/17 Start: 12-20-2024 End: 12-20-2024 ambulatory 12/20/2024 10:50 AM EST Visit (SP) Office Hematology/Oncology [address] [place] [address] Otoniel Heaton, DO [address] [place] [address] 3MO OV / LABS Hematology/Oncolog y Comment on above: 3MO OV / LABS Start: 12-19-2024 BP Controlled (<130/80) BP Controlled (<130/80) [facility] Start: 12-16-2024 End: 12-16-2024 Specialty Pharmacy 12/16/2024 12:00 PM EST Specialty Pharmacy [facility] [address] [place], [place] [id number] [place] [address] Pharmacist, [facility] [address] [place] [address] [place] [address] Refill - Scemblix [30DS] CC#[id number] - [facility] Comment on above: Refill - Scemblix [30DS] CC#[id number] - Start: 12-15-2024 End: 12-15-2024 ambulatory 12/15/2024 10:00 AM EST Results Only [facility] [address] [place] [address] CBC/PCR for BCR/ABL [facility] Comment on above: CBC/PCR for BCR/ABL Start: 11-26-2024 End: 11-26-2024 Patient encounter procedure 11/26/2024 10:00 AM EST Office Visit Pulmonary Medicine [address] [place] [address] Liz Corcoran APRN.TRIAL COURT JUSTICE [address] [place] [address] 3 month f/u Pulmonary Medicine Comment on above: 3 month f/u Start: 11-22-2024 End: 11-22-2024 Patient encounter procedure 11/22/2024 2:40 PM EST Office Visit Cardiology [address] [place] [address] Essential hypertension, benign [I10]; KNOX (dyspnea on exertion) [R06.09]; LVH (left ventricular hypertrophy) [I51.7 Cardiology Comment on above: Essential hypertension, benign [I10]; DO E (dyspnea on exertion) [R06.09]; LVH (left ventricular hypertrophy) [I51.7 Start: 11-18-2024 End: 11-18-2024 Specialty Pharmacy 11/18/2024 7:15 AM EST Specialty Pharmacy [facility] [address] [place], [place] [id number] [place] [address] Pharmacist, [facility] [address] [place] [address] [place] [address] Refill - Scemblix [30DS] CC#[id number] - [facility] Special[facility] Pharmacy Comment on above: Refill - Scemblix [30DS] CC#[id number] - Start: 11-17-2024 End: 11-17-2024 Patient encounter procedure 11/17/2024 2:20 PM EST Office Visit Family Medicine [facility] [address] [place], [place] [address] Noman Dean DO [address] [place] [address] 3 month follow up [facility] [place] Comment on above: 3 month follow up Start: 11-05-2024 Annual PCP Team Chronic Disease Visit Annual PCP Team Chronic Disease Visit [facility] Start: 11-05-2024 BP Controlled (<130/80) BP Controlled (<130/80) [facility] Start: 10-25-2024 End: 10-25-2024 Specialty Pharmacy [facility] Comment on above: Refill - Scemblix [30DS] CC#[id number] - rfl r eq'd 10/20 Refill - Scemblix [3 0DS] CC#[id number] - rfl req'd 10/20 LVM 10/21 Start: 10-21-2024 End: 10-21-2024 Specialty Pharmacy 10/21/2024 11:00 AM EST Specialty Pharmacy [facility] [address] [place], [place] [id number] [address] Pharmacist, [facility] [address] [place] [phone] Refill - Scemblix [30DS] CC#[id number] [facility] Comment on above: Refill - Scemblix [30DS] CC#[id number] Start: 10-11-2024 End: 10-11-2024 Patient encounter procedure 10/11/2024 8:00 AM EST Office Visit Pulmonary Medicine [address] [place] [address] Jose Maria Dominguez APRN.TRIAL COURT JUSTICE [address] [place] [address] last seen 12/2022, Josue Gregorio said to schedule f/u from 08/25/24 appt Pulmonary Medicine Comment on above: last seen 12/2022, Josue Gregorio said to sche dule f/u from 08/25/24 appt Start: 10-07-2024 End: 10-07-2024 Patient encounter procedure 10/07/2024 11:20 AM EST Appointment Cat Scan [address] [place] [address] Encounter for screening for lung cancer [Z12.2]; Tobacco use current [Z72.0] Cat Scan Comment on above: Encounter for screening for lung cancer [Z12.2]; Tobacco use current [Z72.0] Start: 10-06-2024 Annual PCP Team Chronic Disease Visit Annual PCP Team Chronic Disease Visit [facility] Start: 09-17-2024 End: 09-17-2024 Specialty Pharmacy 09/17/2024 7:45 AM EDT Specialty Pharmacy [facility] [address] [place] [address] Pharmacist, [facility] [address] [place] [address] [place] [address] Refill - Scemblix [30DS] [id number] LVM 09/15 [facility] Comment on above: Refill - Scemblix [30DS] [id number] LVM 08/31 Start: 09-15-2024 End: 09-15-2024 Specialty Pharmacy 09/15/2024 11:00 AM EDT Specialty Pharmacy [facility] [address] [place] [address] Pharmacist, [facility] [address] [place] [address] [place] [address] Refill - Scemblix [30DS] [id number] [facility] Comment on above: Refill - Scemblix [30DS] [id number] Start: 09-10-2024 End: 09-10-2024 ambulatory Hematology/Oncolog y Comment on above: 6MO OV/LABS EARLY* 6MO OV/LABS 09/06* Start: 09-06-2024 End: 09-06-2024 ambulatory 09/06/2024 10:00 AM EDT Results Only [place] [place] [facility] Laboratory [address] [place] [address] CBC/CMP/Mg/Phos/Lipase/PCR BCR/ABL p210/Myeloma labs [facility] Laboratory Comment on above: CBC/CMP/Mg/Phos/Lipase/PCR BCR/ABL p210/ Myeloma labs Start: 09-01-2024 End: 09-01-2024 Patient encounter procedure 09/01/2024 9:30 AM EDT Office Visit [address] [address] Mckenna Garcia, PA-C [address] [place], [place] [id number] [facility] Comment on above: MT Start: 09-01-2024 End: 09-01-2024 Patient encounter procedure 09/01/2024 7:50 AM EDT Appointment MRI Q [address] [address] MRI BRAIN WO/W IVCON MRI Q Comment on above: MRI BRAIN WO/W IVCON Start: 08-30-2024 End: 08-30-2024 Patient encounter procedure 08/30/2024 9:30 AM EDT Office Visit Pulmonary Medicine [address] [place] [address] Jose Maria Dominguez APRN.TRIAL COURT JUSTICE [address] [place] [address] last seen 12/2022, Josue Gregorio said to schedule f/u from 08/25/24 appt Pulmonary Medicine Comment on above: last seen 12/2022, Josue Gregorio said to sche dule f/u from 08/25/24 appt Start: 08-25-2024 End: 08-25-2024 Patient encounter procedure 08/25/2024 10:00 AM EDT Office Visit Pulmonary Medicine [address] [place] [address] Harriett Gregorio, PALoraC [address] [place] [address] follow up Pulmonary Medicine Comment on above: follow up Start: 08-18-2024 End: 08-18-2024 Patient encounter procedure 08/18/2024 2:40 PM EDT Office Visit [facility] [place] [address] [place] [address] Noman Dean, [address] [place] [address] 3 month follow up Family Medicine [facility] Comment on above: 3 month follow up Start: 08-16-2024 End: 08-16-2024 Specialty Pharmacy 08/16/2024 12:00 PM EDT Specialty Pharmacy [facility] [employer] [address] [address] Pharmacist, [facility] [address] [place] [address] [address] [place], [place] [phone] Refill - Scemblix [30DS] [id number] [facility] Comment on above: Refill - Scemblix [30DS] [id number] Start: 08-01-2024 Covid-19 Vaccine ( season) Covid-19 Vaccine ( season) [facility] Start: 08-01-2024 Covid-19 Vaccine ( season) Covid-19 Vaccine ( season) [facility] Start: 08-01-2024 Influenza vaccination Influenza Vaccine (#1) [facility] Start: 07-21-2024 End: 07-21-2024 Specialty Pharmacy 07/21/2024 7:30 AM EDT Specialty Pharmacy [facility] [employer] [address] [address] Pharmacist, [facility] [place] [address] Refill - Scemblix [30DS] [id number] LVM 07/19 [facility] Comment on above: Refill - Scemblix [30DS] [id number] LVM 07/19 Start: 07-19-2024 End: 07-19-2024 Specialty Pharmacy 07/19/2024 12:00 PM EDT Specialty Pharmacy [facility] [address] [place] [address] Pharmacist, [facility] [address] [place] [address] [place] [address] Refill - Scemblix [30DS] [id number] [facility] Comment on above: Refill - Scemblix [30DS] [id number] Start: 06-26-2024 ANNUAL PCP TEAM CHRONIC DISEASE VISIT ANNUAL PCP TEAM CHRONIC DISEASE VISIT [facility] Start: 06-26-2024 BP CONTROLLED (<130/80) BP CONTROLLED (<130/80) [facility] Start: 06-23-2024 BP CONTROLLED (<130/80) BP CONTROLLED (<130/80) [facility] Start: 06-17-2024 End: 06-17-2024 Specialty Pharmacy 06/17/2024 7:15 AM EDT Specialty Pharmacy [facility] [address] [place] [address] Pharmacist, [facility] [address] [place] [address] [place] [address] Refill - Scemblix [30DS] [id number] LV 06/15 [facility] Comment on above: Refill - Scemblix [30DS] [id number] LVM 06/15 Start: 06-15-2024 End: 06-15-2024 Specialty Pharmacy 06/15/2024 11:00 AM EDT Specialty Pharmacy [facility] [address] [place] [address] Pharmacist, [facility] [address] [place] [address] [place] [address] Refill - Scemblix [30DS] [id number] [facility] Comment on above: Refill - Scemblix [30DS] [id number] Start: 06-11-2024 End: 06-11-2024 ambulatory My[facility] [place] [facility] Laboratory Comment on above: CBC/CMP/Mg/Phos/Lipase MG(S)/PHOS/(SO)CBC/C MP(S)/Lipase Start: 05-19-2024 End: 05-19-2024 Specialty Pharmacy 05/19/2024 12:00 PM EDT Specialty Pharmacy [facility] [address] [place] [address] Pharmacist, [facility]ty[facility] [address] [place] [address] Refill - Scemblix [30DS] [id number] LVM 05/17 [facility] Comment on above: Refill - Scemblix [30DS] [id number] [facility] 05/17 Start: 05-18-2024 End: 08-17-2024 25-hydroxyvitamin D3 [Mass/volume] in Serum or Plasma VITAMIN D 25 HYDROXY Lab Routine Vitamin D deficiency Expected: 05/18/2024, Expires: 08/17/2024 [facility] Work Phone: Comment on above: Expected: 05/18/2024, Expires: Start: 05-18-2024 End: 08-17-2024 CBC W Auto Differential panel - Blood COMPLETE BLOOD COUNT AND DIFFERENTIAL Lab Routine Multiple sclerosis (HCC) Bilateral leg pain Expected: 05/18/2024, Expires: 08/17/2024 [facility] Comment on above: Expected: 05/18/2024, Expires: Start: 05-18-2024 End: 08-17-2024 Cobalamin (Vitamin B12) [Mass/volume] in Serum or Plasma VITAMIN B12 Lab Routine Vitamin B12 deficiency Expected: 05/18/2024, Expires: 08/17/2024 [facility] Comment on above: Expected: 05/18/2024, Expires: Start: 05-18-2024 End: 08-17-2024 Comprehensive metabolic 2000 panel - Serum or Plasma COMPREHENSIVE METABOLIC PANEL Lab Routine Multiple sclerosis (HCC) Bilateral leg pain Expected: 05/18/2024, Expires: 08/17/2024 [facility] Comment on above: Expected: 05/18/2024, Expires: Start: 05-18-2024 End: 08-17-2024 TOXICOLOGY SCREEN, ROUTINE URINE TOXICOLOGY SCREEN, ROUTINE URINE Lab Routine Multiple sclerosis (HCC) Bilateral leg pain Medication monitoring encounter Expected: 05/18/2024, Expires: 08/17/2024 [facility] Comment on above: Expected: 05/18/2024, Expires: Start: 05-18-2024 End: 05-18-2024 Patient encounter procedure 05/18/2024 12:00 PM EDT Office Visit Family Medicine [facility] [address] [place], [place] [id number] Noman Dean DO [address] [place] [address] 3 Month follow up Family Medicine [facility] Comment on above: 3 Month follow up Start: 05-17-2024 End: 05-17-2024 Specialty Pharmacy 05/17/2024 12:00 PM EDT Specialty Pharmacy [facility] [employer] [address] [address] Pharmacist, [facility] [address] [place] [address] [place] [address] Refill - Scemblix [30DS] [id number] [facility] Comment on above: Refill - Scemblix [30DS] [id number] Start: 04-27-2024 End: 04-27-2024 Specialty Pharmacy 04/27/2024 12:00 PM EDT Specialty Pharmacy [facility] [employer] [address] [place] [address] Pharmacist, [facility] [address] [place] [address] [place] [address] Refill - Scemblix [30DS] [id number] ref req 04/21 [facility] Comment on above: Refill - Scemblix [30DS] [id number] ref req 04/21 Start: 04-21-2024 End: 04-21-2024 Specialty Pharmacy 04/21/2024 12:00 PM EDT Specialty Pharmacy [facility] [address] [facility] [address] [place] [address] Pharmacist, [facility]ty[facility] [address] [place], [place] [id number] Refill - Scemblix [30DS] [id number] [facility] Comment on above: Refill - Scemblix [30DS] [id number] Start: 03-28-2024 ANNUAL PCP TEAM CHRONIC DISEASE VISIT ANNUAL PCP TEAM CHRONIC DISEASE VISIT [facility] Start: 03-28-2024 BP CONTROLLED (<130/80) BP CONTROLLED (<130/80) [facility] Start: 03-24-2024 BP CONTROLLED (<130/80) BP CONTROLLED (<130/80) [facility] Start: 03-05-2024 End: 06-04-2024 BCR/ABL1 P210 QUANTITATIVE PCR BLOOD BCR/ABL1 P210 QUANTITATIVE PCR BLOOD Lab Routine CML (chronic myeloid leukemia) (HCC) Smoldering myeloma Expected: 03/05/2024, Expires: 06/04/2024 [facility] Work Phone: Comment on above: Expected: 03/05/2024, Expires: 4 Start: 03-05-2024 End: 06-04-2024 Magnesium [Mass/volume] in Serum or Plasma MAGNESIUM BLD Lab STAT CML (chronic myeloid leukemia) (HCC) Smoldering myeloma Expected: 03/05/2024, Expires: 06/04/2024 [facility] Work Phone: Comment on above: Expected: 03/05/2024, Expires: 4 Start: 03-05-2024 End: 06-04-2024 Phosphate [Mass/volume] in Serum or Plasma PHOSPHORUS INORGANIC Lab Routine CML (chronic myeloid leukemia) (HCC) Smoldering myeloma Expected: 03/05/2024, Expires: 06/04/2024 [facility] Work Phone: Comment on above: Expected: 03/05/2024, Expires: Start: 02-18-2024 Diagnostic bone marrow biopsies & aspirations DX BONE MARROW BX & ASPIR [facility] Start: 02-18-2024 Following clinical pathway protocol [facility] Start: 02-18-2024 Procedure [facility] Start: 02-18-2024 Catheterization of vein [facility] Start: 02-18-2024 Oxygen therapy [facility] Start: 02-18-2024 Patient discharge [facility] Start: 02-18-2024 Vital signs measurements [facility] Start: 02-04-2024 End: 05-05-2024 25-hydroxyvitamin D3 [Mass/volume] in Serum or Plasma VITAMIN D 25 HYDROXY Lab Routine Vitamin D deficiency Expected: 02/04/2024, Expires: 05/05/2024 [facility] Work Phone: Comment on above: Expected: 02/04/2024, Expires: Start: 02-04-2024 End: 05-05-2024 Cobalamin (Vitamin B12) [Mass/volume] in Serum or Plasma VITAMIN B12 BLOOD Lab Routine Vitamin B12 deficiency Expected: 02/04/2024, Expires: 05/05/2024 [facility] Work Phone: Comment on above: Expected: 02/04/2024, Expires: 4 Start: 02-04-2024 End: 05-05-2024 Thyrotropin [Units/volume] in Serum or Plasma TSH BLD Lab Routine Fatigue, unspecified type Expected: 02/04/2024, Expires: 05/05/2024 [facility] Work Phone: Comment on above: Expected: 02/04/2024, Expires: Start: 02-04-2024 End: 05-05-2024 Thyroxine (T4) free [Mass/volume] in Serum or Plasma T4 FREE/FREE THYROX Lab Routine Fatigue, unspecified type Expected: 02/04/2024, Expires: 05/05/2024 [facility] Work Phone: Comment on above: Expected: 02/04/2024, Expires: 4 Start: 02-04-2024 End: 05-05-2024 Triiodothyronine (T3) Free [Mass/volume] in Serum or Plasma T3 FREE BLD Lab Routine Fatigue, unspecified type Expected: 02/04/2024, Expires: 05/05/2024 [facility] Work Phone: Comment on above: Expected: 02/04/2024, Expires: 4 Start: 01-12-2024 Egd transoral biopsy single/multiple EGD BIOPSY SINGLE/MULTIPLE [facility] Start: 01-12-2024 Patient discharge [facility] Start: 12-31-2023 ANNUAL PCP TEAM CHRONIC DISEASE VISIT ANNUAL PCP TEAM CHRONIC DISEASE VISIT [facility] Start: 12-25-2023 BP CONTROLLED (<130/80) BP CONTROLLED (<130/80) [facility] Start: 12-01-2023 Behavioral Health Screening Behavioral Health Screening [facility] Start: 12-01-2023 Depression Assessment Depression Assessment [facility] Start: 11-18-2023 Influenza vaccination LUNG CANCER SCREENING [facility] Start: 11-12-2023 ANNUAL PCP TEAM CHRONIC DISEASE VISIT ANNUAL PCP TEAM CHRONIC DISEASE VISIT [facility] Start: 11-12-2023 BP CONTROLLED (<130/80) BP CONTROLLED (<130/80) [facility] Start: 10-23-2023 BP CONTROLLED (<130/80) BP CONTROLLED (<130/80) [facility] Start: 09-08-2023 End: 11-08-2023 BCR/ABL1 P210 QUANTITATIVE PCR BLOOD BCR/ABL1 P210 QUANTITATIVE PCR BLOOD Lab Routine CML (chronic myeloid leukemia) (HCC) Smoldering myeloma Expected: 09/08/2023, Expires: 11/08/2023 [facility] Work Phone: Comment on above: Expected: 09/08/2023, Expires: 3 Start: 08-13-2023 ANNUAL PCP TEAM CHRONIC DISEASE VISIT ANNUAL PCP TEAM CHRONIC DISEASE VISIT [facility] Start: 08-01-2023 Covid-19 Vaccine () Covid-19 Vaccine () [facility] Start: 08-01-2023 Influenza vaccination [facility] Start: 06-27-2023 End: 08-27-2023 25-hydroxyvitamin D3 [Mass/volume] in Serum or Plasma VITAMIN D 25 HYDROXY Lab Routine Vitamin D deficiency Expected: 06/27/2023, Expires: 08/27/2023 [facility] Work Phone: Comment on above: Expected: 06/27/2023, Expires: 3 Start: 06-27-2023 End: 08-27-2023 Cobalamin (Vitamin B12) [Mass/volume] in Serum or Plasma VITAMIN B12 BLOOD Lab Routine Vitamin B12 deficiency Expected: 06/27/2023, Expires: 08/27/2023 [facility] Work Phone: Comment on above: Expected: 06/27/2023, Expires: 3 Start: 06-27-2023 End: 08-27-2023 Hemoglobin A1c in Blood HGB A1C Lab Routine CML (chronic myeloid leukemia) (HCC) Other hyperlipidemia Hyperglycemia Expected: 06/27/2023, Expires: 08/27/2023 [facility] Work Phone: Comment on above: Expected: 06/27/2023, Expires: 3 Start: 06-27-2023 End: 08-27-2023 Lipid 1996 panel - Serum or Plasma LIPID PANEL BASIC Lab Routine Other hyperlipidemia Expected: 06/27/2023, Expires: 08/27/2023 [facility] Work Phone: Comment on above: Expected: 06/27/2023, Expires: Start: 06-27-2023 End: 08-27-2023 Thyrotropin [Units/volume] in Serum or Plasma TSH BLD Lab Routine Bilateral leg pain CML (chronic myeloid leukemia) (HCC) Vitamin D deficiency Other hyperlipidemia Expected: 06/27/2023, Expires: 08/27/2023 [facility] Work Phone: Comment on above: Expected: 06/27/2023, Expires: 3 Start: 06-17-2023 End: 08-17-2023 Calcitriol [Mass/volume] in Serum or Plasma VITAMIN D1 25-DIHYDR Lab Routine Hypercalcemia Expected: 06/17/2023, Expires: 08/17/2023 [facility] Work Phone: Comment on above: Expected: 06/17/2023, Expires: 3 Start: 06-17-2023 End: 08-17-2023 Calcium.ionized [Moles/volume] in Blood CALCIUM IONIZED BLOOD Lab Routine Hypercalcemia Expected: 06/17/2023, Expires: 08/17/2023 [facility] Work Phone: Comment on above: Expected: 06/17/2023, Expires: 3 Start: 06-17-2023 End: 08-17-2023 Parathyrin.intact [Mass/volume] in Serum or Plasma PTH INTACT BLD Lab Routine Hypercalcemia Expected: 06/17/2023, Expires: 08/17/2023 [facility] Work Phone: Comment on above: Expected: 06/17/2023, Expires: 3 Start: 06-16-2023 End: 08-16-2023 BCR/ABL1 P210 QUANTITATIVE PCR BLOOD BCR/ABL1 P210 QUANTITATIVE PCR BLOOD Lab Routine CML (chronic myelocytic leukemia) (HCC) MGUS (monoclonal gammopathy of unknown significance) Immunocompromised state (HCC) Expected: 06/16/2023, Expires: 08/16/2023 [facility] Work Phone: Comment on above: Expected: 06/16/2023, Expires: 3 Start: 06-16-2023 End: 08-16-2023 CBC W Auto Differential panel - Blood CBC + DIFF Lab STAT CML (chronic myelocytic leukemia) (HCC) MGUS (monoclonal gammopathy of unknown significance) Immunocompromised state (HCC) Expected: 06/16/2023, Expires: 08/16/2023 [facility] Work Phone: Comment on above: Expected: 06/16/2023, Expires: 3 Start: 06-16-2023 End: 08-16-2023 Comprehensive metabolic 2000 panel - Serum or Plasma COMP METABOLIC PANEL Lab STAT CML (chronic myelocytic leukemia) (HCC) MGUS (monoclonal gammopathy of unknown significance) Immunocompromised state (HCC) Expected: 06/16/2023, Expires: 08/16/2023 [facility] Work Phone: Comment on above: Expected: 06/16/2023, Expires: 3 Start: 06-15-2023 End: 08-15-2023 Lipase [Enzymatic activity/volume] in Serum or Plasma LIPASE BLD Lab Routine CML (chronic myelocytic leukemia) (HCC) MGUS (monoclonal gammopathy of unknown significance) Immunocompromised state (HCC) Expected: 06/15/2023, Expires: 08/15/2023 [facility] Work Phone: Comment on above: Expected: 06/15/2023, Expires: 3 Start: 06-07-2023 Adult depression screening assessment DEPRESSION SCREENING [facility] Start: 05-22-2023 BP CONTROLLED (<130/80) BP CONTROLLED (<130/80) [facility] Start: 05-21-2023 BP CONTROLLED (<130/80) BP CONTROLLED (<130/80) [facility] Start: 05-20-2023 Adult depression screening assessment DEPRESSION SCREENING [facility] Start: 05-15-2023 Patient discharge [facility] Start: 05-13-2023 ANNUAL PCP TEAM CHRONIC DISEASE VISIT ANNUAL PCP TEAM CHRONIC DISEASE VISIT [facility] Start: 04-27-2023 Urine microalbumin profile [facility] Start: 04-15-2023 BP CONTROLLED (<130/80) BP CONTROLLED (<130/80) [facility] Start: 04-13-2023 Adult depression screening assessment DEPRESSION SCREENING [facility] Start: 03-17-2023 End: 05-17-2023 BCR/ABL1 P210 QUANTITATIVE PCR BLOOD BCR/ABL1 P210 QUANTITATIVE PCR BLOOD Lab Routine CML (chronic myeloid leukemia) (HCC) Smoldering myeloma Expected: 03/17/2023, Expires: 05/17/2023 [facility] Work Phone: Comment on above: Expected: 03/17/2023, Expires: 3 Start: 03-17-2023 End: 05-17-2023 CBC W Auto Differential panel - Blood CBC + DIFF Lab STAT CML (chronic myeloid leukemia) (HCC) Smoldering myeloma Expected: 03/17/2023, Expires: 05/17/2023 [facility] Work Phone: Comment on above: Expected: 03/17/2023, Expires: 3 Start: 03-17-2023 End: 05-17-2023 Comprehensive metabolic 2000 panel - Serum or Plasma COMP METABOLIC PANEL Lab Routine CML (chronic myeloid leukemia) (HCC) Smoldering myeloma Expected: 03/17/2023, Expires: 05/17/2023 [facility] Work Phone: Comment on above: Expected: 03/17/2023, Expires: 3 Start: 03-17-2023 End: 03-14-2024 ECG COMPLETE ECG COMPLETE ECG Routine CML (chronic myeloid leukemia) (HCC) Smoldering myeloma Expected: 03/17/2023, Expires: 03/14/2024 [facility] Work Phone: Comment on above: Expected: 03/17/2023, Expires: 4 Start: 03-17-2023 End: 05-17-2023 Lipase [Enzymatic activity/volume] in Serum or Plasma LIPASE BLD Lab Routine CML (chronic myeloid leukemia) (HCC) Smoldering myeloma Expected: 03/17/2023, Expires: 05/17/2023 [facility] Work Phone: Comment on above: Expected: 03/17/2023, Expires: 3 Start: 03-17-2023 End: 04-12-2024 Radiologic exam chest 2 views XR CHEST 2V FRONTAL/LAT Radiology Routine CML (chronic myeloid leukemia) (HCC) Smoldering myeloma Expected: 03/17/2023, Expires: 04/12/2024 [facility] Work Phone: Comment on above: Expected: 03/17/2023, Expires: 4 Start: 02-13-2023 Adult depression screening assessment DEPRESSION SCREENING [facility] Start: 02-13-2023 ANNUAL PCP TEAM CHRONIC DISEASE VISIT ANNUAL PCP TEAM CHRONIC DISEASE VISIT [facility] Start: 12-16-2022 End: 02-15-2023 CBC W Auto Differential panel - Blood CBC + DIFF Lab STAT CML (chronic myelocytic leukemia) (HCC) Smoldering myeloma Expected: 12/16/2022, Expires: 02/15/2023 [facility] Work Phone: Comment on above: Expected: 12/16/2022, Expires: 3 Start: 12-16-2022 End: 02-15-2023 Comprehensive metabolic 2000 panel - Serum or Plasma COMP METABOLIC PANEL Lab STAT CML (chronic myelocytic leukemia) (HCC) Smoldering myeloma Expected: 12/16/2022, Expires: 02/15/2023 [facility] Work Phone: Comment on above: Expected: 12/16/2022, Expires: 3 Start: 12-01-2022 DEPRESSION ASSESSMENT DEPRESSION ASSESSMENT [facility] Start: 09-02-2022 End: 11-02-2022 [id number] [Mass/volume] in Serum or Plasma [facility] Work Phone: Comment on above: Expected: 09/02/2022, Expires: 2 Start: 09-02-2022 End: 11-02-2022 Lipase [Enzymatic activity/volume] in Serum or Plasma [facility] Work Phone: Comment on above: Expected: 09/02/2022, Expires: 2 Start: 09-02-2022 End: 11-02-2022 MONOCLONAL PROT UR W/INTERP [facility] Work Phone: Comment on above: Expected: 09/02/2022, Expires: 2 Start: 09-02-2022 End: 11-02-2022 MONOCLONAL PROTEIN, SERUM (BLOOD) [facility] Work Phone: Comment on above: Expected: 09/02/2022, Expires: 2 Start: 09-02-2022 End: 11-02-2022 [facility] Work Phone: Comment on above: Expected: 09/02/2022, Expires: 2 Start: 09-02-2022 End: 11-02-2022 PROTEIN ELECTROPHORESIS SERUM W[facility] Work Phone: Comment on above: Expected: 09/02/2022, Expires: 2 Start: 08-22-2022 FECAL OCCULT BLOOD FECAL OCCULT BLOOD [facility] Start: 08-22-2022 Screening for malignant neoplasm of colon Fecal Occult Blood [facility] Start: 08-14-2022 End: 10-14-2022 Folate [Mass/volume] in Serum or Plasma FOLATE SERUM Lab Routine Vitamin B12 deficiency Expected: 08/14/2022, Expires: 10/14/2022 [facility] Work Phone: Comment on above: Expected: 08/14/2022, Expires: 2 Start: 08-14-2022 End: 10-14-2022 INTRINSIC FACTOR BLOCKING AB INTRINSIC FACTOR BLOCKING AB Lab Routine Vitamin B12 deficiency Expected: 08/14/2022, Expires: 10/14/2022 [facility] Work Phone: Comment on above: Expected: 08/14/2022, Expires: 2 Start: 08-14-2022 End: 10-14-2022 Methylmalonate [Moles/volume] in Serum or Plasma METHYLMALONIC ACID Lab Routine Vitamin B12 deficiency Expected: 08/14/2022, Expires: 10/14/2022 [facility] Work Phone: Comment on above: Expected: 08/14/2022, Expires: 2 Start: 08-01-2022 Influenza vaccination INFLUENZA (#1) [facility] Start: 05-15-2022 End: 07-15-2022 BCR/ABL1 P210 QUANTITATIVE PCR BLOOD BCR/ABL1 P210 QUANTITATIVE PCR BLOOD Lab Routine CML (chronic myeloid leukemia) (HCC) Smoldering myeloma Splenomegaly Expected: 05/15/2022, Expires: 07/15/2022 [facility] Work Phone: Comment on above: Expected: 05/15/2022, Expires: 2 Start: 05-15-2022 End: 07-15-2022 CBC W Auto Differential panel - Blood CBC + DIFF Lab STAT CML (chronic myeloid leukemia) (HCC) Smoldering myeloma Splenomegaly Expected: 05/15/2022, Expires: 07/15/2022 [facility] Work Phone: Comment on above: Expected: 05/15/2022, Expires: 2 Start: 05-15-2022 End: 07-15-2022 Comprehensive metabolic 2000 panel - Serum or Plasma COMP METABOLIC PANEL Lab Routine CML (chronic myeloid leukemia) (HCC) Smoldering myeloma Splenomegaly Expected: 05/15/2022, Expires: 07/15/2022 [facility] Work Phone: Comment on above: Expected: 05/15/2022, Expires: 2 Start: 05-15-2022 End: 07-15-2022 Lipase [Enzymatic activity/volume] in Serum or Plasma LIPASE BLD Lab Routine CML (chronic myeloid leukemia) (HCC) Smoldering myeloma Splenomegaly Expected: 05/15/2022, Expires: 07/15/2022 [facility] Work Phone: Comment on above: Expected: 05/15/2022, Expires: 2 Start: 05-15-2022 End: 06-13-2023 Radiologic exam chest 2 views XR CHEST 2V FRONTAL/LAT Radiology Routine CML (chronic myeloid leukemia) (HCC) Smoldering myeloma Splenomegaly Expected: 05/15/2022, Expires: 06/13/2023 [facility] Work Phone: Comment on above: Expected: 05/15/2022, Expires: 3 Start: 05-13-2022 End: 07-13-2022 25-hydroxyvitamin D3 [Mass/volume] in Serum or Plasma [facility] Work Phone: Comment on above: Expected: 05/13/2022, Expires: 2 Start: 05-13-2022 End: 07-13-2022 Ascorbate [Mass/volume] in Serum or Plasma [facility] Work Phone: Comment on above: Expected: 05/13/2022, Expires: 2 Start: 05-13-2022 End: 07-13-2022 Cobalamin (Vitamin B12) [Mass/volume] in Serum or Plasma [facility] Work Phone: Comment on above: Expected: 05/13/2022, Expires: 2 Start: 05-13-2022 End: 07-13-2022 Comprehensive metabolic 2000 panel - Serum or Plasma [facility] Work Phone: Comment on above: Expected: 05/13/2022, Expires: 2 Start: 03-15-2022 End: 03-31-2023 XR UPPER GI SINGLE CONTRAST XR UPPER GI SINGLE CONTRAST Radiology Routine Abdominal pain, unspecified abdominal location Expected: 03/15/2022, Expires: 03/31/2023 [facility] Work Phone: Comment on above: Expected: 03/15/2022, Expires: 3 Start: 12-26-2021 COVID-19 VACCINE (4 - Booster for Pfizer series) COVID-19 VACCINE (4 - Booster for Pfizer series) [facility] Start: 12-18-2021 COVID-19 VACCINE (4 - Booster for Pfizer series) COVID-19 VACCINE (4 - Booster for Pfizer series) [facility] Start: 12-01-2021 DEPRESSION ASSESSMENT DEPRESSION ASSESSMENT [facility] Start: 11-20-2021 COVID-19 VACCINE (4 - Booster for Pfizer series) COVID-19 VACCINE (4 - Booster for Pfizer series) [facility] Start: 11-20-2021 COVID-19 VACCINE (4 - Pfizer risk series) COVID-19 VACCINE (4 - Pfizer risk series) [facility] Start: 2020 Influenza vaccination LUNG CANCER SCREENING [facility] Start: 2015 COLOGUARD (FIT-DNA) COLOGUARD (FIT-DNA) [facility] Start: [address] COLONOGRAPHY [facility] Start: 2015 Screening for malignant neoplasm of colon [facility] Start: 2015 SIGMOIDOSCOPY SIGMOIDOSCOPY [facility] Start: 1989 Hepatitis B Vaccine (1 of 3 - 19+ 3-dose series) Hepatitis B Vaccine (1 of 3 - 19+ 3-dose series) [facility] Start: 1988 BP CONTROLLED (<130/80) BP CONTROLLED (<130/80) [facility] Start: 1970 HEPATITIS B (1 of 3 - 3-dose series) HEPATITIS B (1 of 3 - 3-dose series) [facility] Start: 1970 Hepatitis B Vaccine (1 of 3 - 3-dose series) Hepatitis B Vaccine (1 of 3 - 3-dose series) [facility] Alanine aminotransfe rase [Enzymatic activity/volume] in Serum or Plasma [facility] Albumin [Mass/volume ] in Serum or Plasma [facility] Albumin [Moles/volum e] in Serum or Plasma [facility] Albumin/Globulin ratio [facility] Aldolase [Enzymatic activity/volume] in Serum or Plasma [facility] Alkaline phosphatase [Enzymatic activity/volume] in Serum or Plasma [facility] Angiotensin converti ng enzyme [Enzymatic activity/volume] in Serum or Plasma [facility] Anion gap measurement [facility] Antibody to lupus [place] protein measurement [facility] Antibody to SS-A measurement [facility] Aspartate aminotransferase [Enzymatic activity/volume] in Serum or Plasma [facility] Beef IgE Ab [Units/volume] in Serum [facility] Bilirubin, total measurement [facility] BUN/Creatinine ratio [facility] C reactive protein [Mass/volume] in Serum or Plasma [facility] Calcitriol [Mass/vol ume] in Serum or Plasma VITAMIN D1 25-DIHYDR Lab Routine Hypercalcemia 06/18/2023 8:58 AM EDT [facility] Work Phone: Calcium [Mass/volume ] in Serum or Plasma [facility] Calcium.ionized [Moles/volume] in Blood CALCIUM IONIZED BLOOD Lab Routine Hypercalcemia 06/18/2023 8:58 AM EDT [facility] Work Phone: Carbon dioxide, tota l [Moles/volume] in Serum or Plasma [facility] End: 07-17-2024 CBC W Auto Differential panel - Blood CBC + DIFF Lab STAT CML (chronic myeloid leukemia) (HCC) Smoldering myeloma Once per month for 12 Occurrences starting 07/19/2023 until 07/17/2024 [facility] Work Phone: Comment on above: Once per month for 12 Occurrences starti ng 07/19/2023 until 07/17/2024 Centromere protein B Ab [Units/volume] in Serum [facility] Chloride [Moles/volu me] in Serum or Plasma [facility] Chocolate IgE Ab [Units/volume] in Serum [facility] Chromatin Ab [Units/volume] in Serum or Plasma [facility] Clam IgE Ab [Units/volume] in Serum [facility] Codfish IgE Ab [Units/volume] in Serum [facility] End: 07-17-2024 Comprehensive metabolic 2000 panel - Serum or Plasma COMP METABOLIC PANEL Lab STAT CML (chronic myeloid leukemia) (HCC) Smoldering myeloma Once per month for 12 Occurrences starting 07/19/2023 until 07/17/2024 [facility] Work Phone: Comment on above: Once per month for 12 Occurrences starti ng 07/19/2023 until 07/17/2024 [place] IgE Ab [Units/volume] in Serum [facility] Cow milk IgE Ab [Units/volume] in Serum [facility] Creatine kinase [Enzymatic activity/volume] in Serum or Plasma [facility] Creatinine [Moles/vo lume] in Serum or Plasma [facility] End: 10-31-2025 CT Chest for screening WO contrast CT LUNG SCREEN WO IVCON Radiology Routine Encounter for screening for lung cancer Tobacco use current 1 Occurrences starting 10/01/2024 until 10/31/2025 [facility] Work Phone: Comment on above: 1 Occurrences starting 10/01/2024 until 10/31/2025 CT Chest for screeni ng WO contrast CT LUNG SCREEN WO IVCON Radiology Routine Encounter for screening for lung cancer Tobacco use current 10/07/2024 11:44 AM EST [facility] Work Phone: End: 11-10-2025 CT Chest for screening WO contrast CT LUNG SCREEN WO IVCON Radiology Routine Encounter for screening for lung cancer Tobacco use current 1 Occurrences starting 10/11/2024 until 11/10/2025 [facility] Work Phone: Comment on above: 1 Occurrences starting 10/11/2024 until 11/10/2025 End: 06-12-2023 Ct soft tissue neck w/o contrast material CT NECK SOFT TISSUE WO IVCON Radiology Routine Multiple sclerosis (HCC) Spontaneous bruising Fatigue, unspecified type Cervicalgia CML (chronic myeloid leukemia) (HCC) 1 Occurrences starting 05/13/2022 until 06/12/2023 [facility] Work Phone: Comment on above: 1 Occurrences starting 05/13/2022 until 06/12/2023 End: 12-12-2023 Ct thorax w/o contrast material CT CHEST WO IVCON Radiology Routine Wheezing Tobacco use 1 Occurrences starting 11/12/2022 until 12/12/2023 [facility] Work Phone: Comment on above: 1 Occurrences starting 11/12/2022 until 12/12/2023 DNA double strand Ab [Units/volume] in Serum [facility] End: 09-12-2023 Dxa bone density study 1/> sites axial skel DXA-AXIAL SKELETON Radiology Routine Screening for osteoporosis CML (chronic myeloid leukemia) (HCC) Other specified disorders of bone density and structure, multiple sites 1 Occurrences starting 08/13/2022 until 09/12/2023 [facility] Work Phone: Comment on above: 1 Occurrences starting 08/13/2022 until 09/12/2023 ECG B/O W INTERP (ME D OFFICE) ECG B/O W INTERP (MED OFFICE) ECG Routine Chest pain, unspecified type Dyspnea and respiratory abnormalities Ordered: 12/25/2022 [facility] Work Phone: Comment on above: Ordered: 12/25/2022 End: 12-25-2023 Echocardiography ECHO Cardiology Routine Chest pain, unspecified type Dyspnea and respiratory abnormalities 1 Occurrences starting 12/25/2022 until 12/25/2023 [facility] Work Phone: Comment on above: 1 Occurrences starting 12/25/2022 until 12/25/2023 End: 11-17-2025 Echocardiography ECHO Cardiology Routine Essential hypertension, benign KNOX (dyspnea on exertion) LVH (left ventricular hypertrophy) 1 Occurrences starting 11/17/2024 until 11/17/2025 [facility] Work Phone: Comment on above: 1 Occurrences starting 11/17/2024 until 11/17/2025 End: 05-21-2023 EGD DIAGNOSTIC EGD DIAGNOSTIC Endoscopy Routine Gastroesophageal reflux disease without esophagitis History of peptic ulcer disease Pain of upper abdomen 1 Occurrences starting 05/21/2022 until 05/21/2023 [facility] Work Phone: Comment on above: 1 Occurrences starting 05/21/2022 until 05/21/2023 End: 07-03-2023 EGD DIAGNOSTIC EGD DIAGNOSTIC Endoscopy Routine History of peptic ulcer disease Gastroesophageal reflux disease without esophagitis 1 Occurrences starting 07/03/2022 until 07/03/2023 [facility] Work Phone: Comment on above: 1 Occurrences starting 07/03/2022 until 07/03/2023 End: 07-18-2023 EGD DIAGNOSTIC EGD DIAGNOSTIC Endoscopy Routine Abdominal pain, unspecified abdominal location Gastroesophageal reflux disease without esophagitis History of peptic ulcer disease 1 Occurrences starting 07/18/2022 until 07/18/2023 [facility] Work Phone: Comment on above: 1 Occurrences starting 07/18/2022 until 07/18/2023 End: 08-13-2022 EGD DIAGNOSTIC EGD DIAGNOSTIC Endoscopy Routine Abdominal pain, unspecified abdominal location Gastroesophageal reflux disease without esophagitis History of peptic ulcer disease 1 Occurrences starting 08/13/2022 until 08/13/2022 [facility] Work Phone: Comment on above: 1 Occurrences starting 08/13/2022 until 08/13/2022 Egg white IgE Ab [Units/volume] in Serum [facility] Electrophoresis: [id number] [facility] Electrophoresis: froilan ma globulin [facility] Erythrocyte sediment ation rate [facility] Ferritin [Mass/volum e] in Serum or Plasma [facility] Fish [facility]ST [facility] Gastrin [Mass/volume ] in Serum or Plasma [facility] Globulin measurement [facility] Glucose [Mass/volume ] in Serum or Plasma [facility] Hematocrit [Volume Fraction] of Blood [facility] Hemoglobin [Mass/vol ume] in Blood [facility] Hepatitis A virus Ig M Ab [Presence] in Serum [facility] Hepatitis B core ant ibody measurement, IgM type [facility] Hepatitis B surface antigen measurement [facility] Hepatitis C antibody measurement [facility] HIV 1+2 Ab+HIV1 p24 Ag [Presence] in Serum or Plasma by Immunoassay [facility] IgA [Mass/volume] in Serum or Plasma [facility] IgE [Units/volume] i n Serum or Plasma [facility] IgG [Mass/volume] in Serum or Plasma [facility] IgM [Mass/volume] in Serum or Plasma [facility] INR in Blood by Coagulation assay [facility] Sarah-1 extractable nuc lear Ab [Units/volume] in Serum [facility] Lactate dehydrogenas e measurement [facility] Leukocytes [#/volume ] in Blood [facility] End: 07-17-2024 Lipase [Enzymatic activity/volume] in Serum or Plasma LIPASE BLD Lab Routine CML (chronic myeloid leukemia) (HCC) Smoldering myeloma Once per month for 12 Occurrences starting 07/19/2023 until 07/17/2024 [facility] Work Phone: Comment on above: Once per month for 12 Occurrences starti ng 07/19/2023 until 07/17/2024 End: 01-24-2024 LUNG DIFFUSION CAPACITY (DLCO) LUNG DIFFUSION CAPACITY (DLCO) PFT Routine Stage 2 moderate COPD by GOLD classification (HCC) Abnormal CT scan, lung 1 Occurrences starting 12/25/2022 until 01/24/2024 [facility] Work Phone: Comment on above: 1 Occurrences starting 12/25/2022 until 01/24/2024 End: 01-24-2024 LUNG VOLUMES LUNG VOLUMES PFT Routine Stage 2 moderate COPD by GOLD classification (HCC) Abnormal CT scan, lung 1 Occurrences starting 12/25/2022 until 01/24/2024 [facility] Work Phone: Comment on above: 1 Occurrences starting 12/25/2022 until 01/24/2024 Mean corpuscular hemoglobin concentration determination [facility] Mean corpuscular hemoglobin determination [facility] Measurement of immunoglobulin A in serum specimen [facility] Measurement of renal function [facility] Mitochondria Ab [Presence] in Serum [facility] Neutrophil count [facility] Neutrophil cytoplasm ic Ab.classic [Units/volume] in Serum [facility] Neutrophil percent differential count [facility] End: 07-25-2024 NM CARDIAC PERF STRESS/EXERCISE NM CARDIAC PERF STRESS/EXERCISE Radiology Routine Tachypnea Chest pain, unspecified type 1 Occurrences starting 06/26/2023 until 07/25/2024 [facility] Work Phone: Comment on above: 1 Occurrences starting 06/26/2023 until 07/25/2024 P-ANCA measurement [facility] Parathyrin.intact [Mass/volume] in Serum or Plasma PTH INTACT BLD Lab Routine Hypercalcemia 06/18/2023 8:58 AM EDT [facility] Work Phone: Patient Education RAD RN Bone Ma rrow Aspiration and Biopsy RAD RN Procedural Sedation [facility] Work Phone: Patient referral [facility] Work Phone: Peanut IgE Ab [Units/volume] in Serum [facility] Platelets [#/volume] in Blood [facility] Pork IgE Ab [Units/volume] in Serum [facility] Potassium [Moles/vol ume] in Serum or Plasma [facility] Protein electrophore sis panel - Serum or Plasma [facility] Prothrombin time [facility] Red blood cell count [facility] Red cell distributio n width determination [facility] Scallop RAST [facility] SCL-[id number] extractable nuclear Ab [Units/volume] in Serum by Immunoassay [facility] Serum protein electrophoresis [facility] Sesame seed RAST [facility] Shrimp IgE Ab [Units/volume] in Serum [facility] Miguel extractable nu clear Ab [Presence] in Serum [facility] Smooth muscle Ab [Presence] in Serum [facility] Sodium [Moles/volume ] in Serum or Plasma [facility] Soybean IgE Ab [Units/volume] in Serum [facility] End: 01-24-2024 SPIROMETRY BASELINE ONLY SPIROMETRY BASELINE ONLY PFT Routine Stage 2 moderate COPD by GOLD classification ([facility]) Abnormal CT scan, lung 1 Occurrences starting 12/25/2022 until 01/24/2024 [facility] Work Phone: Comment on above: 1 Occurrences starting 12/25/2022 until 01/24/2024 SPIROMETRY BASELINE ONLY SPIROME TRY BASELINE ONLY PFT Routine Stage 2 moderate COPD by GOLD classification ([facility]) 08/25/2024 10:10 AM EDT [facility] Work Phone: SURGICAL PATHOLOGY [facility] Work Phone: Comment on above: Ordered: 12/31/2022 SURGICAL PATHOLOGY SURGICAL PATH OLOGY Lab Routine Atypical nevus of left upper back excluding scapular region Atypical nevus of left lower back 11/05/2023 10:49 AM EST [facility] Work Phone: Tissue transglutamin ase IgA Ab [Units/volume] in Serum [facility] Total protein measurement [facility] Urea nitrogen [Mass/volume] in Serum or Plasma [facility] End: 03-18-2026 US Abdominal Aorta for screening US SCREENING FOR AAA Radiology Routine Screening for AAA (abdominal aortic aneurysm) 1 Occurrences starting 02/16/2025 until 03/18/2026 [facility] Comment on above: 1 Occurrences starting 02/16/2025 until 03/18/2026 End: 02-16-2026 US Carotid arteries - bilateral US CAROTID ARTERIES [facility] Vascular Lab Routine Carotid atherosclerosis, bilateral 1 Occurrences starting 02/16/2025 until 02/16/2026 [facility] Comment on above: 1 Occurrences starting 02/16/2025 until 02/16/2026 End: 05-13-2023 US CAROTID ARTERIES [facility] US CAROTID ARTERIES [facility] Vascular Lab Routine Multiple sclerosis (HCC) Fatigue, unspecified type Cervicalgia CML (chronic myeloid leukemia) (HCC) PAD (peripheral artery disease) (HCC) Bruit of right carotid artery 1 Occurrences starting 05/13/2022 until 05/13/2023 [facility] Work Phone: Comment on above: 1 Occurrences starting 05/13/2022 until 05/13/2023 [place] [facility] Wheat IgE Ab [Units/volume] in Serum [facility] Whole Egg IgE Ab [Units/volume] in Serum [facility] End: 03-29-2023 XR ELBOW GENERAL 2V AP/LAT LEFT XR ELBOW GENERAL 2V AP/LAT LEFT Radiology Routine Bilateral elbow joint pain 1 Occurrences starting 02/27/2022 until 03/29/2023 [facility] Work Phone: Comment on above: 1 Occurrences starting 02/27/2022 until 03/29/2023 End: 03-29-2023 XR ELBOW GENERAL 2V AP/LAT RIGHT XR ELBOW GENERAL 2V AP/LAT RIGHT Radiology Routine Bilateral elbow joint pain 1 Occurrences starting 02/27/2022 until 03/29/2023 [facility] Work Phone: Comment on above: 1 Occurrences starting 02/27/2022 until 03/29/2023 End: 03-05-2025 XR Foot - bilateral AP and Lateral and oblique XR FOOT GENERAL 3V AP/LAT/OBL BILATERAL Radiology Routine Foot pain, bilateral 1 Occurrences starting 02/04/2024 until 03/05/2025 [facility] Work Phone: Comment on above: 1 Occurrences starting 02/04/2024 until 03/05/2025 XR Foot - bilateral AP and Lateral and oblique XR FOOT GENERAL 3V AP/LAT/OBL BILATERAL Radiology Routine Foot pain, bilateral 02/04/2024 1:12 PM EST [facility] Work Phone: End: 03-31-2023 XR GI SMALL BOWEL FOLLOW-THRU XR GI SMALL BOWEL FOLLOW-THRU Radiology Routine Abdominal pain, unspecified abdominal location 1 Occurrences starting 03/01/2022 until 03/31/2023 [facility] Work Phone: Comment on above: 1 Occurrences starting 03/01/2022 until 03/31/2023 [facility] Immun[facility] Date Immunization Notes Care Provider [facility] 08-18-2024 influenza, seasonal, injectable Noman Dean DO Work Phone: [facility] 09-18-2023 influenza, injectabl e, quadrivalent, preservative free Otoniel Heaton DO Work Phone: [facility] 09-18-2023 influenza virus vacc ine, unspecified formulation Otoniel Heaton DO Work Phone: [facility] 08-13-2022 influenza, injectabl e, quadrivalent, contains preservative Trenton Garcia MD Work Phone: [facility] Work Phone: 08-13-2022 influenza virus vacc ine, unspecified formulation Oleksandr Thompson [facility] 09-25-2021 COVID-19 vaccine, ag e 12+ yr (PFIZER-BIONTECH - PURPLE TOP) Jersey Cole MD Work Phone: [facility] 08-29-2021 influenza, injectabl e, quadrivalent, contains preservative Jersey Cole MD Work Phone: [facility] 08-28-2021 COVID-19 vaccine, ag e 12+ yr (PFIZER-BIONTECH - PURPLE TOP) Jersey Cole MD Work Phone: [facility] 08-07-2021 COVID-19 vaccine, ag e 12+ yr (PFIZER-BIONTECH - PURPLE TOP) Jersey Cole MD Work Phone: [facility] 03-03-2021 zoster vaccine recombinant Jersey Cole MD Work Phone: [facility] Work Phone: 01-01-2021 zoster vaccine recombinant Jersey Cole MD Work Phone: [facility] Work Phone: 09-13-2020 influenza, injectabl e, quadrivalent, contains preservative Jersey Cole MD Work Phone: [facility] 09-13-2020 pneumococcal conjuga te vaccine, 13 valent Jersey Cole MD Work Phone: [facility] 09-14-2019 influenza, injectabl e, quadrivalent, contains preservative Jersey Cole MD Work Phone: [facility] 10-07-2018 influenza, injectabl e, quadrivalent, contains preservative Jersey Cole MD Work Phone: [facility] Work Phone: 10-07-2018 pneumococcal polysaccharide vaccine, 23 valent Jersey Cole MD Work Phone: [facility] Work Phone: 10-07-2017 influenza, injectabl e, quadrivalent, contains preservative Jersey Cole MD Work Phone: [facility] Work Phone: 08-14-2016 influenza, injectabl e, quadrivalent, contains preservative Jersey Cole MD Work Phone: [facility] 08-31-2015 influenza, injectabl e, quadrivalent, contains preservative Jersey Cole MD Work Phone: [facility] 09-14-2014 influenza, seasonal, injectable Jersey Cole MD Work Phone: [facility] 08-31-2014 Influenza virus vaccine [facility] 08-31-2014 influenza, seasonal, injectable Noman Chirinosrison DO Work Phone: [facility] 09-04-2013 influenza virus vacc ine, unspecified formulation Jersey Cole MD Work Phone: [facility] Work Phone: 04-27-2013 tetanus and diphther ia toxoids, adsorbed, preservative free, for adult use (2 Lf of tetanus toxoid and 2 Lf of diphtheria toxoid) Jersey oCle MD Work Phone: [facility] 08-22-2012 influenza virus vacc ine, unspecified formulation Jersey Cole MD Work Phone: [facility] Work Phone: 09-07-2011 influenza virus vacc ine, unspecified formulation Jersey Cole MD Work Phone: [facility] Work Phone: 09-14-2010 influenza virus vacc ine, unspecified formulation Jersey Cole MD Work Phone: [facility] 11-13-2009 novel influenza-[id number] -[id number], all formulations Jersey Cole MD Work Phone: [facility] Work Phone: 10-23-2009 pneumococcal Conjuga te, unspecified formulation Noman Dean DO Work Phone: [facility] [facility] 10[facility]2009 pneumococcal polysaccharide vaccine, 23 valent Jersey Cole MD Work Phone: [facility] 10-23-2009 [facility]neum[facility] Work Phone: 10-23-2009 pneumococcal vaccine , unspecified formulation Dr. Noman Dean Work Phone: [facility] 08-23-2009 influenza virus vacc ine, unspecified formulation Jersey Cole MD Work Phone: [facility] 09-23-2008 influenza virus vacc ine, unspecified formulation Jersey Cole MD Work Phone: [facility] Work Phone: 10-14-2007 influenza virus vacc ine, unspecified formulation Jersey Cole MD Work Phone: [facility] Work Phone: 12-01-2001 diphtheria and tetan us toxoids, adsorbed for pediatric use Jersey Cole MD Work Phone: [facility] Work Phone: Payers Date Payer Category Payer Self-pay [id number] 2008 Medicare MEDICARE MEDICAR E A AND B [id number] 2008-Present [phone] [address] [address] [place] [address] Medicare [id number] 2008 Medicare [id number] 2008 Medicare [id number] Unknown [id number] Unknown [id number] Unknown [id number] Unknown [id number] Unknown [id number] Unknown [id number] Unknown [id number] Social History Date Type Detail Facility Start: 07-19-2021 Tobacco smoking stat us NHIS Light tobacco smoker [facility] Start: 07-01-1988 History of tobacco use Cigarette Smo ker [facility] Start: 07-19-2021 End: 04-23-2023 Cigarettes smoked current (pack per day) - Reported 1 [facility] Start: 07-19-2021 End: 10-11-2024 Tobacco use and exposure Smokeless tobacco non-user [facility] Start: 02-13-2022 End: 12-31-2024 Alcohol intake Ex-drinker (finding) [facility] Start: 06-26-2020 End: 09-13-2020 History SDOH Alcohol Frequency 1 [facility] Start: 06-26-2020 End: 11-12-2022 History SDOH Alcohol Std Drinks 98 [facility] Start: 01-18-2020 End: 11-29-2020 History SDOH Social Connections Phone 2 [facility] Start: 01-18-2020 End: 11-12-2022 History SDOH Social Connections Living 3 [facility] Start: 01-18-2020 History SDOH Physica l Activity DPW 0 [facility] Start: 01-18-2020 Education 10 [facility] Start: 07-18-2021 Tobacco Comment Pt has cut tequila k to 1 cigarette daily. [facility] Start: 1970 Sex Assigned At Male C [facility] Start: 08-27-2020 End: 10-30-2022 Exposure to SARS-CoV-2 (event) Not sure [facility] Start: 05-17-2015 End: 02-18-2024 Tobacco smoking status NHIS Unknown if ever smoked [facility] Start: 05-17-2015 None [facility] Start: 05-17-2015 Spouse/ Signif icant Other [facility] Start: 07-01-1988 End: 10-11-2024 Tobacco smoking status NHIS Smokes tobacco daily [facility] Start: 09-16-2022 Tobacco Comment Pt has cut tequila k to 5 cigarettes daily. [facility] Start: 12-17-2022 Tobacco Comment Started age 18 [facility] Start: 11-11-2022 End: 04-23-2023 Social connection and isolation panel [facility] In a typical week, h ow many times do you talk on the telephone with family, friends, or neighbors? Patient refused [facility] Are you now , , , , never or living with a partner? Refused [facility] The food that (I/we) bought just didn't last, and (I/we) didn't have money to get more. DK or Refused [facility] Start: 04-19-2019 Gender identity Identifies as male gender (finding) [facility] Start: 04-19-2019 Sexual orientation Heterosexual (richard benitez) [facility] Are you now , , , , never or living with a partner? [facility] How often to you hav e a drink containing alcohol? Never [facility] Do you feel stress - tense, restless, nervous, or anxious, or unable to sleep at night because your mind is troubled all the time - these days [OSQ] Only a little [facility] Has the [employer], [employer], or [employer] threatened to shut off services in your home in past 12Mo No [facility] How hard is it for y ou to pay for the very basics like food, housing, medical care, and heating Not very hard [facility] Do you feel stress - tense, restless, nervous, or anxious, or unable to sleep at night because your mind is troubled all the time - these days [OSQ] Rather much [facility] (I/We) worried jerrica er (my/our) food would run out before (I/we) got money to buy more. Never true [facility] How hard is it for y ou to pay for the very basics like food, housing, medical care, and heating Somewhat hard [facility] Start: 07-02-2019 Tobacco Comment Currently 1/2 ppd. ETS: Parents in childhood home, current spouse. [facility] Start: 12-26-2020 Tobacco Comment Currently 5-6 cigs per day. ETS: Parents in childhood home, current spouse. [facility] Medical Equipment Procedure Code Equipment Code Equipment Origin al Text Equipment Identifier Dates 1 Syringe as directed. [id number] Start: 11-05-2023 Comment on above: 1 Syringe as directe d. Goals Date Patient Goal Desired Activity /State Functional Status Date Assessment Result Facility 02-16-2025 Total score [AUDIT-C] 0 02/17/20 25 9:34 AM EDT Velvet Alcantar LPN [facility] 07-07-2015 Are you deaf, or do you have serious difficulty hearing No 07/07/2015 2:17 PM EDT Erendira Mckenzie LPN No [facility] 07-07-2015 Are you blind, or do you have serious difficulty seeing, even when wearing glasses No 07/07/2015 2:17 PM EDT Erendira Mckenzie LPN No [facility] 07-07-2015 Do you have serious difficulty walking or climbing stairs No 07/07/2015 2:17 PM EDT Erendira Mckenzie LPN No [facility] 07-07-2015 Do you have difficul ty dressing or bathing No 07/07/2015 2:17 PM EDT Erendira Mckenzie LPN No [facility] 07-07-2015 Because of a physica l, mental, or emotional condition, do you have difficulty doing errands alone such as visiting a physician's office or shopping No 07/07/2015 2:17 PM EDT Erendira Mckenzie LPN No [facility] Mental Status Date Assessment Result Facility 02-18-2024 Cognitive function Awake;Alert;Appropriat e [facility] Work Phone: 01-12-2024 Cognitive function Level Of Cons ciousness Sedated [facility] Work Phone: 01-12-2024 Cognitive function Patient Orientation Pe rson [facility] Work Phone: 05-15-2023 Cognitive function Level Of Cons ciousness Sedated [facility] Work Phone: 05-15-2023 Cognitive function Voice/Name [facility] Work Phone: 07-07-2015 Because of a physica l, mental, or emotional condition, do you have serious difficulty concentrating, remembering, or making decisions No 07/07/2015 2:17 PM EDT Erendira Mckenzie LPN No [facility] Clinical Notes 03-31-2019 to 02-17-2025 Telephone Encounter - Staci Goodrich LISW - 02/17/2025 8:44 AM EDTTelephone Encounter - Staci Goodrich LISW - 02/17/2025 8:44 AM EDNoman Benitez DO - 02/16/2025 10:09 AM EDT Note Date & Type Note Facility 02-17-2025 Telephone encounter Note SOCIAL WORK FOLLOW UP NOTE: [facility] Pt noted on [facility] report with a recent PHQ of 12. Pt completed the questionnaire for annual OV with PCP on 02/16/25. Per chart review. PHQ scores were assessed and reviewed during this OV. Pt also follows with psychiatry per PCP. Deferred JONH Sharma [facility] 02-17-2025 Miscellaneous Notes SOCIAL WORK FOLLOW UP NOTE: [facility] Pt noted on [facility] report with a recent PHQ of 12. Pt completed the questionnaire for annual OV with PCP on 02/16/25. Per chart review. PHQ scores were assessed and reviewed during this OV. Pt also follows with psychiatry per PCP. Deferred JONH Sharma documented in this encounter [facility] 02-16-2025 History of Present illness Narrative Images from the original note were not included. Otoniel Victoria is a 54 year old male here for a Medicare wellness visit. Medicare Health Risk Assessment General Health Fair Exercise: Minutes/Day 0 min Exercise: Days/Week 0 days Alcohol: Daily Use Never Alcohol: Drinks/Day Patient does not drink Alcohol: 6 or more drinks Never Feel off balance No Concerns: Teeth/Dentures No Concerns: Sexual function No Troubled by feelings Stressed; Irritable Frequency: Eating healthy diet Several days ADLs requiring help None of the above Safety precautions in home/vehicle Yes Smoke, vape, chews tobacco Yes, but I'm not ready to quit Difficulty hearing No Difficulty seeing No Current Providers Specialists: I have reviewed specialist-related care of the patient in the medical record. Medical/Family history review Reviewed and updated problem list, medical/surgical/family/social history, medications, and allergies. Opioid use review Opioid Medications (last 90 days) 12/17/2024 00:00 01/14/2025 00:00 02/16/2025 Opioid Medications hydrocodone/acetaminophen 1 tablet BID PRN ORAL 1 tablet BID PRN ORAL 1 tablet BID PRN ORAL-Discontinued hydrocodone/acetaminophen 1 tablet BID PRN ORAL 1 tablet BID PRN ORAL-Discontinued hydrocodone/acetaminophen 1 tablet BID PRN ORAL Details Outpatient prescription Medication marked as long-term Prescribed hydrocodone/acetaminophen (last 90 days) Does patient have risk factors for opioid abuse? No Pain overview Current pain concerns and treatment plan reviewed. Patient stable on current treatment plan. Anxiety/Depression screening PHQ-9 Score: 12 (Moderate Depression) HILARIO-7 Score: 8 (Mild Anxiety) Recommendation: medication management By psychiatrist Cognitive screening Cognitive screening reviewed and No further action needed (score 3-5). Functional Observation Was the patient's Timed Up & Go test unsteady or >= 12 seconds? No Advance Care Planning Surrogate decision maker and/or advance care plan documented Measurements BP 100/70 Pulse 80 Temp 36.7 C (98 F) (Right Tympanic) Resp 20 Wt 92.5 kg (204 lb) BMI 26.19 kg/m Vision Screening: Follows with optometry/ophthalmology Assessment/Plan Medicare annual wellness visit, subsequent (Z00.00) - Counseled on healthy diet and regular exercise - Fall avoidance information provided - Personalized prevention plan provided - Discussed need for and benefit of weight loss. BMI 26.19 kg/(m^2) Noman Dean DO CC: Otoniel Victoria is a 54 year old male who presents to the office for follow up HPI: Was seen recently by DR. Parada Lace Tearing Supervisor for his abdominal symptoms as above. Dr. Parada is concerned that it is secondary to MS. He is taking the medication as prescribed Had MRI brain on 09/01 by Neurology and then had a follow up with the specialist. Going to talk to the Neurologist about this concern. Has been having right jainism headaches. MRI brain was stable/normal ADHD, taking adderall XR in the morning. Sometimes feels his symptoms aren't well enough controlled in the afternoon/evening. Did have dose changes that he went through which seemed to help his symptoms better. Denies any SE from medication. Chronic b/l leg pain and MS, taking [place] as prescribed, tolerating well. Helps with ADLs and IADLs with dressing, bathing, gait, daily functioning. No new SE with medication. He is needing medications refilled. Had COVID 19 infection for 1st time in Jan 2025, his and children all had COVID 19 infection. CML, will be seeing Oncologist in May and likely going to be able to be off medication Carotid artery atherosclerosis, b/l, last US carotids was in 2021 Hasn't had recent aortic US for AAA screening, long standing tobacco use PAST MEDICAL HISTORY Diagnosis Date ADHD (attention deficit hyperactivity disorder) Arrhythmia Arthritis Bipolar 1 disorder ([facility]) Dr. Easley [facility] Chronic obstructive pulmonary disease ([facility]) 04/19/2019 Chronic obstructive pulmonary disease ([facility]) CML (chronic myeloid leukemia) ([facility]) 02/13/2015 Dr. 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 Vasquez Neurologist Multiple sclerosis ([facility]) 10/2005 Dr. Mauricio Vasquez Neurologist Osteoarthritis of left knee 01/2022 Other symptoms involving abdomen and pelvis(789.9) Palpitations Schizophrenia ([facility]) Dr. Easley [facility] Snoring Substance abuse rule out 03/15/2015 [...] Sig amphetamine-dextroamphetamine XR (ADDERALL XR) 30 mg capsule Take 1 capsule by mouth once daily for 30 days. [START ON 03/17/2025] amphetamine-dextroamphetamine XR (ADDERALL XR) 30 mg capsule Take 1 capsule by mouth once daily for 30 days. Patient should start on March 17, 2025. [START ON 04/14/2025] amphetamine-dextroamphetamine XR (ADDERALL XR) 30 mg capsule Take 1 capsule by mouth once daily for 30 days. Patient should start on April 14, 2025. dextroamphetamine-amphetamine (ADDERALL) 10 mg tablet Take 1 tablet by mouth once daily for 30 days. In the afternoon as needed for concentration impairment [START ON 03/17/2025] dextroamphetamine-amphetamine (ADDERALL) 10 mg tablet Take 1 tablet by mouth once daily for 30 days. In the afternoon as needed for concentration impairment Patient should start on March 17, 2025. [START ON 04/14/2025] dextroamphetamine-amphetamine (ADDERALL) 10 mg tablet Take 1 tablet by mouth once daily for 30 days. In the afternoon as needed for concentration impairment Patient should start on April 14, 2025. atenolol (TENORMIN) 25 mg tablet Take 1 tablet by mouth once daily. HYDROcodone-acetaminophen (NORCO) 5-325 mg per tablet Take 1 tablet by mouth two times a day as needed for pain for up to 30 days. [START ON 03/17/2025] HYDROcodone-acetaminophen (NORCO) 5-325 mg per tablet Take 1 tablet by mouth two times a day as needed for pain for up to 30 days. Patient should start on March 17, 2025. [START ON 04/14/2025] HYDROcodone-acetaminophen (NORCO) 5-325 mg per tablet Take 1 tablet by mouth two times a day as needed for pain for up to 30 days. Patient should start on April 14, 2025. gabapentin (NEURONTIN) 600 mg tablet Take 1 tablet by mouth three times a day for 180 days. gemfibrozil (LOPID) 600 mg tablet Take 1 tablet by mouth two times a day. oxybutynin ER (DITROPAN XL) 15 mg 24 hr Extended Rel Tab Take 1 tablet by mouth once daily. asciminib (SCEMBLIX) 40 mg tablet Take 2 tablets (80 mg) by mouth once daily on an empty stomach. Avoid food 2 hours prior and 1 hour after taking omeprazole (PRILOSEC) 40 mg capsule Take 1 capsule by mouth once daily. srudmnvvjwz-mxggnlaws-hwsryzis (TRELEGY ELLIPTA) 100-62.5-25 mcg inhalation powder Inhale 1 Puff as instructed once daily. budesonide, enteric coated (ENTOCORT EC) 3 mg 24 hr capsule Take 6 mg by mouth once daily. albuterol HFA (VENTOLIN HFA) 90 mcg/actuation inhaler INHALE 2 PUFFS INSTRUCTED EVERY FOUR HOURS NEEDED FOR WHEEZING / SHORTNESS OF BREATH diclofenac (VOLTAREN) 1 % topical gel Apply 2 g to affected area four times daily. sildenafil (VIAGRA) 100 mg tablet Take 1 tablet by mouth once daily as needed. Generic okay linaCLOtide (LINZESS) 290 mcg capsule Take 290 mcg by mouth once daily. cyanocobalamin 1,000 mcg/mL Inject 1 ml IM once a week x 4 weeks then 1 ml IM every other week for 8 weeks then 1 ml IM once a month Syringe with Needle, Disp, 1 mL 25 gauge x 1 syrg 1 Syringe as directed. PEG 400-propylene glycol (SYSTANE ULTRA) 0.4-0.3 % ophthalmic solution Use 1 Drop in both eyes twice daily. dicyclomine (BENTYL) 20 mg tablet [...] Take 40 mg by mouth once daily. No current facility-administered medications for this visit. ALLERGIES Allergen Reactions Aspirin GI Upset Penicillins Hives Pollen Itching Topamax [Topiramate] Other: See Comments Severe migraines Shellfish Derived Unknown Was told per Dr. Friend needs an Epi pen for this allergy per lab work Social History Tobacco Use Smoking status: Every Day Average packs/day: 1.5 packs/day for 35.0 years (52.5 ttl pk-yrs) Types: Cigarettes Start date: 07/1988 Smokeless tobacco: Never Tobacco comments: Started age 18 Vaping Use Vaping status: Never Used Substance Use Topics Alcohol use: Not Currently Drug use: No ROS: See HIP PE: BP 100/70 Pulse 80 Temp (Src) 98 (Right Tympanic) Resp 20 Wt 204 lb (92.5kg) Gen: A&OX3, NAD, non-toxic appearing, smells of tobacco, fatigued appearing HEENT: PERRLA, EOMs intact b/l, nares without drainage, pharynx without erythema, exudate, lesions, or drainage. Uvula midline. MMM Neck: No LAD, no thyromegaly, no meningismus. CV: RRR, 1/6 HSM RUSB murmur Lungs: CTA b/l, no wheezing Antalgic gait No edema, normal pulses Abd: soft, NT, normal. BS Chronic leg and spine pain PDMP website checked and validated. All prescriptions have been APPROPRIATELY filled. No suspicious activity was identified. 02/16/2025 by Noman Dean DO ASSESSMENT/PLAN: 1. Hypothyroidism, acquired - ICD9: 244.9, ICD10: E03.9 (primary diagnosis) - Instructed patient on importance of taking on an empty stomach either first thing in the morning or at bedtime. - continue current dose of Synthroid - THYROID STIMULATING HORMONE - T4 FREE/FREE THYROXINE 2. Attention or concentration deficit - ICD9: 799.51, ICD10: R41.840 rx refilled, 3 one month supply, medication is helping with ADLs and IADLs. He is taking as prescribed Has a valid controlled substance agreement - DEXTROAMPHETAMINE-AMPHETAMINE ER 30 MG 24HR CAPSULE,EXTEND RELEASE - DEXTROAMPHETAMINE-AMPHETAMINE ER 30 MG 24HR CAPSULE,EXTEND RELEASE - DEXTROAMPHETAMINE-AMPHETAMINE ER 30 MG 24HR CAPSULE,EXTEND RELEASE - DEXTROAMPHETAMINE-AMPHETAMINE 10 MG TABLET - DEXTROAMPHETAMINE-AMPHETAMINE 10 MG TABLET - DEXTROAMPHETAMINE-AMPHETAMINE 10 MG TABLET 3. Multiple sclerosis (HCC) - ICD9: 340, ICD10: G35 rx refilled, 3 one month supply, medication is helping with ADLs and IADLs. He is taking as prescribed Has a valid controlled substance agreement F/u with Neurologist - HYDROCODONE 5 MG-ACETAMINOPHEN 325 MG TABLET - HYDROCODONE 5 MG-ACETAMINOPHEN 325 MG TABLET - HYDROCODONE 5 MG-ACETAMINOPHEN 325 MG TABLET - GABAPENTIN 600 MG TABLET 4. Bilateral leg pain - ICD9: 729.5, ICD10: M79.604, M79.605 rx refilled, 3 one month supply, medication is helping with ADLs and IADLs. He is taking as prescribed Has a valid controlled substance agreement F/u with Neurologist - HYDROCODONE 5 MG-ACETAMINOPHEN 325 MG TABLET - HYDROCODONE 5 MG-ACETAMINOPHEN 325 MG TABLET - HYDROCODONE 5 MG-ACETAMINOPHEN 325 MG TABLET 5. Multiple sclerosis, relapsing-remitting (HCC) - ICD9: 340, ICD10: G35 rx refilled, 3 one month supply, medication is helping with ADLs and IADLs. He is taking as prescribed Has a valid controlled substance agreement F/u with Neurologist - GABAPENTIN 600 MG TABLET - VITAMIN D 25 HYDROXY - VITAMIN B12 - MAGNESIUM - COMPREHENSIVE METABOLIC PANEL - IRON AND TIBC 6. RLS (restless legs syndrome) - ICD9: 333.94, ICD10: G25.81 rx refilled, 3 one month supply, medication is helping with ADLs and IADLs. He is taking as prescribed Has a valid controlled substance agreement F/u with Neurologist - GABAPENTIN 600 MG TABLET - VITAMIN D 25 HYDROXY - VITAMIN B12 - MAGNESIUM - COMPREHENSIVE METABOLIC PANEL - IRON AND TIBC 7. Malaise and fatigue - ICD9: 780.79, ICD10: R53.81, R53.83 rx refilled, 3 one month supply, medication is helping with ADLs and IADLs. He is taking as prescribed Has a valid controlled substance agreement F/u with Neurologist - GABAPENTIN 600 MG TABLET 8. Imbalance - ICD9: 781.2, ICD10: R26.89 rx refilled, 3 one month supply, medication is helping with ADLs and IADLs. He is taking as prescribed Has a valid controlled substance agreement F/u with Neurologist - GABAPENTIN 600 MG TABLET 9. Vitamin D deficiency - ICD9: 268.9, ICD10: E55.9 Continue supplement Check labs - VITAMIN D 25 HYDROXY 10. Vitamin B12 deficiency - ICD9: 266.2, ICD10: E53.8 Continue supplement Check labs - VITAMIN B12 11. Fatigue, unspecified type - ICD9: 780.79, ICD10: R53.83 Continue supplement Check labs 12. Immunocompromised state (HCC) - ICD9: 279.9, ICD10: D84.9 Secondary to CML and MS and medications he takes 13. Essential hypertension, benign - ICD9: 401.1, ICD10: I10 - Controlled - Continue current medications - Recommend home blood pressure monitoring, to bring results to next visit - Encouraged sodium restriction, DASH or Mediterranean diet - Recommend regular aerobic exercise 14. CML (chronic myeloid leukemia) (HCC) - ICD9: 205.10, ICD10: C92.10 Continue supplement Check labs F/u with specialsit - VITAMIN D 25 HYDROXY - VITAMIN B12 - MAGNESIUM - COMPREHENSIVE METABOLIC PANEL - IRON AND TIBC 15. Screening for AAA (abdominal aortic aneurysm) - ICD9: V81.2, ICD10: Z13.6 - US SCREENING FOR AAA 16. Carotid atherosclerosis, bilateral - ICD9: 433.10, 433.30, ICD10: I65.23 - US CAROTID ARTERIES APRIL VAS LAB Noman Dean DO Return if no improvement. Follow up with Noman Dean DO. To ER if develops chest pain, shortness of breath. Discussed risks, benefits, alternatives, and potential side effects of medications. Patient/Guardian expressed understanding and agreed with the plan. See patient instructions. Noman Dean DO [address] [place] [address] documented in this encounter [facility] 02-10-2025 History of Present illness Narrative POPULATION HEALTH NAVIGATION OUTREACH Action/FYI UPDATED `APPOINTMENT NOTES HCC CLOSURE Topic Due (Y or N) Comments Medicare Wellness Y PCP Follow up Colorectal Cancer Screening Controlling Blood Pressure A1C HCC Y Flu Vaccine Care Everywhere Reviewed MyChart Activation Updated Appointment Note Reason for Outreach Care Gap/HCC or Scheduling Wellness Visits Care Gaps due: Medicare Annual Wellness Visit Patient Contacted: Unable or unnecessary to reach patient: HCC related Patient already scheduled Updated appointment notes Navigation Signature: Shawanda Calderón MA February 10, 2025 9:27 AM documented in this encounter [facility] 01-26-2025 Telephone encounter Note Images from the original note were not included. TERESITA haines and completed electronically for the adderall 30mg and 10 mg. With response from insurance for both. Close reason: Other Payer: [employer] [phone] Note from payer: Drug is not covered by plan [facility] 01-26-2025 Miscellaneous Notes Images from the original note were not included. TERESITA haines and completed electronically for the adderall 30mg and 10 mg. With response from insurance for both. Close reason: Other Payer: [employer] [phone] Note from payer: Drug is not covered by plan documented in this encounter [facility] 12-31-2024 History of Present illness Narrative Diagnosis: 1) CML chronic phase 2) MGUS HPI: The patient is a 54 yo male who has h/o MS (exacerbating/remitting [...] of spleen on an MRI from 10/2016. CT abdomen and pelvis 12/05/2020: RESULT: Liver: [...] Tissues: No significant finding. Lower thorax: Unremarkable. Program Engineer (topogram) images: Unremarkable. Ultrasound right upper quadrant [...] is noted, measuring 15.6 cm in length. Had EMG in March 2021. EMG of [...] foot trauma or secondary to shoe wear. Previous therapy: 1) Started imatinib 01/05/2015. 2) Sprycel 80 mg daily. He had been tolerating Gleevec very well but he was starting to have an increasing number of transcripts on PCR testing. Transition to Sprycel but got significant headache at the 100 mg dose. Dose was therefore decreased 80 mg and since then he had no recurrence headache. Current therapy: 1) Scemblix. Began 05/2024. He was found to have significant gastric ulcer disease. Therapy changed to Scemblix so he could go on any PPI needed. Presents for ongoing oncologic management. Interim history: He continues to tolerate asciminib well with no symptomatic side effect. He has muscular pain which seems to be migratory nonspecific. Denies of bone and back pain. PMH, medications and allergies as below personally [...] Stable mood. PHYSICAL EXAM: Vitals: Blood pressure 113/74, pulse 71, temperature 36.6 C (97.9 F), temperature source Temporal, weight 94.3 kg (208 lb), SpO2 98%. Well-appearing and in no acute distress. EYES: Sclerae are anicteric bilaterally. LYMPHATIC: There is no palpable cervical or supraclavicular adenopathy. CARDIOVASCULAR: Rhythm is regular. ABDOMEN: The abdomen is nondistended. SKIN: No jaundice. LABS: PATHOLOGY: Bone marrow biopsy 01/03/2021: A [place] [...] DIAGNOSIS: 46,XY[20] INTERPRETATION: Normal, male karyotype ASSESSMENT/PLAN: (C92.10) CML (chronic myeloid leukemia) (HCC) (primary encounter diagnosis) Assessment: -Diagnosis was incidental on work up for monoclonal protein--was found to have t(9;22) on cytogenetics. -There was a complete cytogenetic response at 1 year (repeat bone marrow biopsy January 2016). -Had increasing transcript number on Gleevec. -Was doing well on Sprycel but developed gastric ulcers requiring higher dose PPI so therapy changed to Scemblix which he continues to tolerate very well with no sympomatic side effects. -DMR as of 12/2023. -Reviewed most recent lab work. Maintaining deep molecular response. -Discussed potential to hold Scemblix if/when in DMR for 2 years. Has been in MMR at a minimum since October 2021 (on dasatinib). Plan -Continue Scemblix. -Labs in 3 months. -Repeat PCR in 6 months. 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 -Repeat bone marrow biopsy 01/2021 suggested some progression with areas up to 10% plasma cells. -Whole-body bone CT 02/01/2021 revealed no lytic bone lesions. -Repeat bone marrow biopsy from [facility]--lower percentage PCs. Specimen not optimal. -Recent 24 hour urine--no MP by electrophoresis. Atypical lambda on immunofixation. Plan: -Repeat labs in 6 months. -Repeat bone marrow biopsy with amyloid stain in 6 months. -Will update imaging with MRI in 6 months. Portions of this documentation were copied and pasted from my previous office visit note dated 03/12/2024 in order to provide a cohesive continuity of the history. The note has been reviewed and edited and updated as necessary. Otoniel Heaton DO documented in this encounter [facility] 11-22-2024 Miscellaneous Notes Pt. informed via My Chart. Please inform patient that his ECHO is stable, unchanged from previous Noman Dean DO documented in this encounter [facility] 11-22-2024 Telephone encounter Note Pt. informed via My Chart. [facility] 11-22-2024 Telephone encounter Note Please inform patient that his ECHO is stable, unchanged from previous Noman Dean DO [facility] 11-18-2024 Telephone encounter Note SOCIAL WORK FOLLOW UP NOTE: [facility] Date of service: November 18, 2024 Pt presented on [employer] [place] report. Per chart review, pt completed questionnaire for, and was seen by, family medicine. Assessment Deferred to family med JONH Sharma [facility] 11-18-2024 Miscellaneous Notes SOCIAL WORK FOLLOW UP NOTE: [facility] Date of service: November 18, 2024 Pt presented on [employer] [place] report. Per chart review, pt completed questionnaire for, and was seen by, family medicine. Assessment Deferred to [facility] SHAHRIAR Sharma-S documented in this encounter [facility] 11-18-2024 History of Present illness Narrative [facility] Refill Assessment Medication(s): Scemblix 40mg Reviewed OV note on 11/17 with [facility]. Plan to monitor BP and bring in results to next visit. Labs reviewed. Next clinic visit scheduled 12/20. ALLERGIES Allergen Reactions Aspirin GI Upset Penicillins [...] laboratory parameters, disease state markers and outcomes. Office/provider notes have been reviewed prior to dispensing the medication. Eleanor Brown, JoaquinD, BCACP, BCOP Clinical Pharmacist, Oncology [facility] P: , F: Pool: P [facility] Pool #: [id number] [employer] Assessment Patient confirmed: Yes Med/dose confirmed: Yes Supplies needed: No supplies needed Missed doses: No Estimated days supply on hand: 8 Copay amount: 0 Payment confirmed: Yes Delivery method: FedEx Signature required: Waived on patient request Delivery address: [facility] [address], [place], [address] Delivery date: 11/22/24 Questions or concerns for the pharmacist?: No Did you have any side effects believed to be related to this medication, that resulted in hospitalization?: No Current Outpatient Medications on File Prior to Visit Medication Sig dextroamphetamine-amphetamine (ADDERALL) 10 mg tablet Take 1 tablet by mouth once daily for 30 days. In the afternoon as needed for concentration impairment [START ON 12/17/2024] dextroamphetamine-amphetamine (ADDERALL) 10 mg tablet Take 1 tablet by mouth once daily for 30 days. In the afternoon as needed for concentration impairment Patient should start on December 17, 2024. [START ON 01/14/2025] dextroamphetamine-amphetamine (ADDERALL) 10 mg tablet Take 1 tablet by mouth once daily for 30 days. In the afternoon as needed for concentration impairment Patient should start on January 14, 2025. HYDROcodone-acetaminophen (NORCO) 5-325 mg per tablet Take 1 tablet by mouth two times a day as needed for pain for up to 30 days. [START ON 12/17/2024] HYDROcodone-acetaminophen (NORCO) 5-325 mg per tablet Take 1 tablet by mouth two times a day as needed for pain for up to 30 days. Patient should start on December 17, 2024. [START ON 01/14/2025] HYDROcodone-acetaminophen (NORCO) 5-325 mg per tablet Take 1 tablet by mouth two times a day as needed for pain for up to 30 days. Patient should start on January 14, 2025. gemfibrozil (LOPID) 600 mg tablet Take 1 tablet by mouth two times a day. gabapentin (NEURONTIN) 600 mg tablet Take 1 tablet by mouth three times a day for 180 days. [START ON 01/14/2025] amphetamine-dextroamphetamine XR (ADDERALL XR) 30 mg capsule Take 1 capsule by mouth once daily for 30 days. Patient should start on January 14, 2025. amphetamine-dextroamphetamine XR (ADDERALL XR) 30 mg capsule Take 1 capsule by mouth once daily for 30 days. [START ON 12/17/2024] amphetamine-dextroamphetamine XR (ADDERALL XR) 30 mg capsule Take 1 capsule by mouth once daily for 30 days. Patient should start on December 17, 2024. asciminib (SCEMBLIX) 40 mg tablet Take 2 tablets (80 mg) by mouth once daily on an empty stomach. Avoid food 2 hours prior and 1 hour after taking omeprazole (PRILOSEC) 40 mg capsule Take 1 capsule by mouth once daily. fnfbdtszvvk-nuluppupy-fayxxqlb (TRELEGY ELLIPTA) 100-62.5-25 mcg inhalation powder Inhale 1 Puff as instructed once daily. budesonide, enteric coated (ENTOCORT EC) 3 mg 24 hr capsule Take 6 mg by mouth once daily. oxybutynin ER (DITROPAN XL) 15 mg 24 hr Extended Rel Tab Take 1 tablet by mouth once daily. albuterol HFA (VENTOLIN HFA) 90 mcg/actuation inhaler INHALE 2 PUFFS INSTRUCTED EVERY FOUR HOURS NEEDED FOR WHEEZING / SHORTNESS OF BREATH atenolol (TENORMIN) 25 mg tablet Take 1 tablet by mouth once daily. diclofenac (VOLTAREN) 1 % topical gel Apply 2 g to affected area four times daily. sildenafil (VIAGRA) 100 mg tablet Take 1 tablet by mouth once daily as needed. Generic okay linaCLOtide (LINZESS) 290 mcg capsule Take 290 mcg by mouth once daily. cyanocobalamin 1,000 mcg/mL Inject 1 ml IM once a week x 4 weeks then 1 ml IM every other week for 8 weeks then 1 ml IM once a month Syringe with Needle, Disp, 1 mL 25 gauge x 1 syrg 1 Syringe as directed. PEG 400-propylene glycol (SYSTANE ULTRA) 0.4-0.3 % ophthalmic solution Use 1 Drop in both eyes twice daily. dicyclomine (BENTYL) 20 mg tablet [...] Take 40 mg by mouth once daily. No current facility-administered medications on file prior to visit. [facility] CLINICAL ASSESSMENT - HEMATOLOGY ONCOLOGY V6: Ivent complete: No Assessment to use: Refill Lab monitoring inclusive of CBC, Chem-7, and other labs as pertinent for therapy: Yes Chemo cycle timing assessment: N/A Assessment of injection issues: N/A Current medication list (including drug interaction assessment): Yes Experience of adverse reactions to the medication: Yes Date of influenza vaccination reminder: 08/18/2024 Date of most recent vaccination assessment: 08/18/2024 Treatment Plan Information: 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 [...] amylase levels monthly or as clinically necessary Est. Tx Plan Start Date: No information available Estimated Start Date Info: Per Dr Otoniel Heaton Discretion Est. Estimated Treatment Duration: Until progression or toxicity Belle Qureshi documented in this encounter [facility] 11-17-2024 Note Addended by: NOMAN JIMENEZ on: 11/17/2024 08:51 PM Modules accepted: Orders [facility] 11-17-2024 Telephone encounter Note The following approved medication requests have been transmitted electronically. Requested Prescriptions Signed Prescriptions Disp Refills amphetamine-dextroamphetamine XR (ADDERALL XR) 30 mg capsule 30 capsule 0 Sig: Take 1 capsule by mouth once daily for 30 days. Patient should start on January 14, 2025. Authorizing Provider: NOMAN DEAN amphetamine-dextroamphetamine XR (ADDERALL XR) 30 mg capsule 30 capsule 0 Sig: Take 1 capsule by mouth once daily for 30 days. Authorizing Provider: NOMAN DEAN amphetamine-dextroamphetamine XR (ADDERALL XR) 30 mg capsule 30 capsule 0 Sig: Take 1 capsule by mouth once daily for 30 days. Patient should start on December 17, 2024. Authorizing Provider: NOMAN DEAN DO [facility] 11-17-2024 Miscellaneous Notes Addended by: NOMAN DEAN on: 11/17/2024 08:51 PM Modules accepted: Orders The following approved medication requests have been transmitted electronically. Requested Prescriptions Signed Prescriptions Disp Refills amphetamine-dextroamphetamine XR (ADDERALL XR) 30 mg capsule 30 capsule 0 Sig: Take 1 capsule by mouth once daily for 30 days. Patient should start on January 14, 2025. Authorizing Provider: NOMAN DEAN amphetamine-dextroamphetamine XR (ADDERALL XR) 30 mg capsule 30 capsule 0 Sig: Take 1 capsule by mouth once daily for 30 days. Authorizing Provider: NOMAN DEAN amphetamine-dextroamphetamine XR (ADDERALL XR) 30 mg capsule 30 capsule 0 Sig: Take 1 capsule by mouth once daily for 30 days. Patient should start on December 17, 2024. Authorizing Provider: NOMAN DEAN DO Patient calling in. States he had visit with provider today and his Adderall 30 mg prescription got sent to incorrect pharmacy. Requesting his Adderall 30 mg be sent to [facility] in [place]. Thank you. documented in this encounter [facility] 11-17-2024 Telephone encounter Note Patient calling in. States he had visit with provider today and his Adderall 30 mg prescription got sent to incorrect pharmacy. Requesting his Adderall 30 mg be sent to [facility] in [place]. Thank you. [facility] 11-17-2024 History of Present illness Narrative CC: Otoniel Victoria is a 54 year old male who presents to the office for 3 months follow up HPI: Was seen recently by DR. Parada Lace Tearing Supervisor for his abdominal symptoms as above. Dr. Parada is concerned that it is secondary to MS. He is taking the medication as prescribed Had MRI brain on 09/01 by Neurology and then had a follow up with the specialist. Going to talk to the Neurologist about this concern. Has been having right jainism headaches. MRI brain was stable/normal ADHD, taking adderall XR in the morning. Sometimes feels his symptoms aren't well enough controlled in the afternoon/evening. Did have dose changes that he went through which seemed to help his symptoms better. Denies any SE from medication. Chronic b/l leg pain and MS, taking [place] as prescribed, tolerating well. Helps with ADLs and IADLs with dressing, bathing, gait, daily functioning. No new SE with medication. He is needing medications refilled. PAST MEDICAL HISTORY Diagnosis Date ADHD (attention deficit hyperactivity disorder) Arrhythmia Arthritis Bipolar 1 disorder ([facility]) Dr. Easley [facility] Chronic obstructive pulmonary disease ([facility]) 04/19/2019 Chronic obstructive pulmonary disease ([facility]) CML (chronic myeloid leukemia) ([facility]) 02/13/2015 Dr. 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 Vasquez Neurologist Multiple sclerosis ([facility]) 10/2005 Dr. Mauricio Vasquez Neurologist Osteoarthritis of left knee 01/2022 Other symptoms involving abdomen and pelvis(789.9) Palpitations Schizophrenia ([facility]) Dr. Easley [facility] Snoring Substance abuse rule out 03/15/2015 [...] TONSILLECTOMY HX Current Outpatient Medications Medication Sig [START ON 01/14/2025] amphetamine-dextroamphetamine XR (ADDERALL XR) 30 mg capsule Take 1 capsule by mouth once daily for 30 days. Patient should start on January 14, 2025. dextroamphetamine-amphetamine (ADDERALL) 10 mg tablet Take 1 tablet by mouth once daily for 30 days. In the afternoon as needed for concentration impairment amphetamine-dextroamphetamine XR (ADDERALL XR) 30 mg capsule Take 1 capsule by mouth once daily for 30 days. [START ON 12/17/2024] dextroamphetamine-amphetamine (ADDERALL) 10 mg tablet Take 1 tablet by mouth once daily for 30 days. In the afternoon as needed for concentration impairment Patient should start on December 17, 2024. [START ON 12/17/2024] amphetamine-dextroamphetamine XR (ADDERALL XR) 30 mg capsule Take 1 capsule by mouth once daily for 30 days. Patient should start on December 17, 2024. [START ON 01/14/2025] dextroamphetamine-amphetamine (ADDERALL) 10 mg tablet Take 1 tablet by mouth once daily for 30 days. In the afternoon as needed for concentration impairment Patient should start on January 14, 2025. HYDROcodone-acetaminophen (NORCO) 5-325 mg per tablet Take 1 tablet by mouth two times a day as needed for pain for up to 30 days. [START ON 12/17/2024] HYDROcodone-acetaminophen (NORCO) 5-325 mg per tablet Take 1 tablet by mouth two times a day as needed for pain for up to 30 days. Patient should start on December 17, 2024. [START ON 01/14/2025] HYDROcodone-acetaminophen (NORCO) 5-325 mg per tablet Take 1 tablet by mouth two times a day as needed for pain for up to 30 days. Patient should start on January 14, 2025. gemfibrozil (LOPID) 600 mg tablet Take 1 tablet by mouth two times a day. gabapentin (NEURONTIN) 600 mg tablet Take 1 tablet by mouth three times a day for 180 days. asciminib (SCEMBLIX) 40 mg tablet Take 2 tablets (80 mg) by mouth once daily on an empty stomach. Avoid food 2 hours prior and 1 hour after taking omeprazole (PRILOSEC) 40 mg capsule Take 1 capsule by mouth once daily. nnfrevwahvk-vamivgmqb-oocmtrhb (TRELEGY ELLIPTA) 100-62.5-25 mcg inhalation powder Inhale 1 Puff as instructed once daily. budesonide, enteric coated (ENTOCORT EC) 3 mg 24 hr capsule Take 6 mg by mouth once daily. oxybutynin ER (DITROPAN XL) 15 mg 24 hr Extended Rel Tab Take 1 tablet by mouth once daily. albuterol HFA (VENTOLIN HFA) 90 mcg/actuation inhaler INHALE 2 PUFFS INSTRUCTED EVERY FOUR HOURS NEEDED FOR WHEEZING / SHORTNESS OF BREATH atenolol (TENORMIN) 25 mg tablet Take 1 tablet by mouth once daily. diclofenac (VOLTAREN) 1 % topical gel Apply 2 g to affected area four times daily. sildenafil (VIAGRA) 100 mg tablet Take 1 tablet by mouth once daily as needed. Generic okay linaCLOtide (LINZESS) 290 mcg capsule Take 290 mcg by mouth once daily. cyanocobalamin 1,000 mcg/mL Inject 1 ml IM once a week x 4 weeks then 1 ml IM every other week for 8 weeks then 1 ml IM once a month Syringe with Needle, Disp, 1 mL 25 gauge x 1 syrg 1 Syringe as directed. PEG 400-propylene glycol (SYSTANE ULTRA) 0.4-0.3 % ophthalmic solution Use 1 Drop in both eyes twice daily. dicyclomine (BENTYL) 20 mg tablet [...] Take 40 mg by mouth once daily. No current facility-administered medications for this visit. ALLERGIES Allergen Reactions Aspirin GI Upset Penicillins Hives Pollen Itching Topamax [Topiramate] Other: See Comments Severe migraines Shellfish Derived Unknown Was told per Dr. Friend needs an Epi pen for this allergy per lab work Social History Tobacco Use Smoking status: Every Day Average packs/day: 1.5 packs/day for 35.0 years (52.5 ttl pk-yrs) Types: Cigarettes Start date: 07/1988 Smokeless tobacco: Never Tobacco comments: Started age 18 Vaping Use Vaping status: Never Used Substance Use Topics Alcohol use: Not Currently Drug use: No ROS: See HPI PE: BP 100/60 Pulse 64 Temp (Src) 98 (Left Tympanic) Resp 16 Wt 206 lb (93.4kg) Gen: A&OX3, NAD, non-toxic appearing, smells of tobacco, fatigued appearing HEENT: PERRLA, EOMs intact b/l, nares without drainage, pharynx without erythema, exudate, lesions, or drainage. Uvula midline. MMM Neck: No LAD, no thyromegaly, no meningismus. CV: RRR, 1/6 HSM RUSB murmur Lungs: CTA b/l, no wheezing Antalgic gait No edema, normal pulses Abd: soft, NT, normal. BS Chronic leg and spine pain PDMP website checked and validated. All prescriptions have been APPROPRIATELY filled. No suspicious activity was identified. 11/17/2024 by Noman Dean DO ASSESSMENT/PLAN: 1. Essential hypertension, benign - ICD9: 401.1, ICD10: I10 (primary diagnosis) - Controlled - Continue current medications - Recommend home blood pressure monitoring, to bring results to next visit - Encouraged sodium restriction, DASH or Mediterranean diet - Recommend regular aerobic exercise - Discussed need for and benefit of weight loss. BMI 26.45 kg/(m^2) - ECHO - PERFLUTREN LIPID MICROSPHERES 1.1 MG/ML INJECTION IN NS 10 ML - SODIUM CHLORIDE 0.9 % (FLUSH) INJECTION SYRINGE 2. Attention or concentration deficit - ICD9: 799.51, ICD10: R41.840 3 one month rx refilled Chronic, stable No SE with Medication Medication is helping ADLs and IADLs - DEXTROAMPHETAMINE-AMPHETAMINE ER 30 MG 24HR CAPSULE,EXTEND RELEASE - DEXTROAMPHETAMINE-AMPHETAMINE 10 MG TABLET - DEXTROAMPHETAMINE-AMPHETAMINE ER 30 MG 24HR CAPSULE,EXTEND RELEASE - DEXTROAMPHETAMINE-AMPHETAMINE 10 MG TABLET - DEXTROAMPHETAMINE-AMPHETAMINE ER 30 MG 24HR CAPSULE,EXTEND RELEASE - DEXTROAMPHETAMINE-AMPHETAMINE 10 MG TABLET 3. Multiple sclerosis (HCC) - ICD9: 340, ICD10: G35 3 one month rx refilled Chronic, stable No SE with Medication Medication is helping ADLs and IADLs - HYDROCODONE 5 MG-ACETAMINOPHEN 325 MG TABLET - HYDROCODONE 5 MG-ACETAMINOPHEN 325 MG TABLET - HYDROCODONE 5 MG-ACETAMINOPHEN 325 MG TABLET - GABAPENTIN 600 MG TABLET 4. Bilateral leg pain - ICD9: 729.5, ICD10: M79.604, M79.605 3 one month rx refilled Chronic, stable No SE with Medication Medication is helping ADLs and IADLs - HYDROCODONE 5 MG-ACETAMINOPHEN 325 MG TABLET - HYDROCODONE 5 MG-ACETAMINOPHEN 325 MG TABLET - HYDROCODONE 5 MG-ACETAMINOPHEN 325 MG TABLET 5. Multiple sclerosis, relapsing-remitting (HCC) - ICD9: 340, ICD10: G35 3 one month rx refilled Chronic, stable No SE with Medication Medication is helping ADLs and IADLs F/u with Neurologist - GABAPENTIN 600 MG TABLET 6. RLS (restless legs syndrome) - ICD9: 333.94, ICD10: G25.81 3 one month rx refilled Chronic, stable No SE with Medication Medication is helping ADLs and IADLs - GABAPENTIN 600 MG TABLET 7. Malaise and fatigue - ICD9: 780.79, ICD10: R53.81, R53.83 - GABAPENTIN 600 MG TABLET 8. Imbalance - ICD9: 781.2, ICD10: R26.89 - GABAPENTIN 600 MG TABLET 9. KNOX (dyspnea on exertion) - ICD9: 786.09, ICD10: R06.09 Need for follow up repeat ECHO - ECHO - PERFLUTREN LIPID MICROSPHERES 1.1 MG/ML INJECTION IN NS 10 ML - SODIUM CHLORIDE 0.9 % (FLUSH) INJECTION SYRINGE 10. LVH (left ventricular hypertrophy) - ICD9: 429.3, ICD10: I51.7 See above, hx of - ECHO - PERFLUTREN LIPID MICROSPHERES 1.1 MG/ML INJECTION IN NS 10 ML - SODIUM CHLORIDE 0.9 % (FLUSH) INJECTION SYRINGE Noman Dean DO Return if no improvement. Follow up with Noman Dean DO. To ER if develops chest pain, shortness of breath. Discussed risks, benefits, alternatives, and potential side effects of medications. Patient/Guardian expressed understanding and agreed with the plan. See patient instructions. Noman Dean DO [address] [place] [address] documented in this encounter [facility] 10-11-2024 Instructions Jose Maria Dominguez APRN.[employer]IAL [employer] JUSTICE - 10/11/2024 8:25 AM EST Lung nodule/s: all previously seen nodule/s have not changed in size or characteristic/resolved and there are no new nodules of concern. Please return in one year for the following 2 visits on the same day: Annual low-dose CT chest Lung cancer screening Provider visit. This recommendation is subject to change pending the final report from radiology. I will notify you of the final radiology report recommendations when available by [employer] message, letter, or phone call. We will also notify your referring provider/PCP of the results and recommendations. If you didn t schedule this before you left the office or need to reschedule, you can call in to schedule it anytime: [facility] [phone] [facility] [phone] All other [facility] locations [phone] Feel free to reach out for any questions or concerns, Jose Maria Dominguez APRN.TRIAL [employer] JUSTICE Lung Cancer Screening [phone] documented in this encounter [facility] 10-11-2024 History of Present illness Narrative Chief Complaint: Follow-up from Initial CT Lung Screening scan completed today. History of Present Illness: Otoniel Victoria is a 54 year old male who is presenting today for CT lung screening imaging review. Patient is a current smoker with a 52 pack year history. Currently still smoking <1/2 daily. Since the patient's last visit the patient has not had new medical issues or hospitalizations. Patient tolerates activity well, with no difficulty with breathing. Modified [employer] [place] Dyspnea Scale (MMRC) I get short of breath when hurrying on level ground or walking up a slight hill 1 Patient denies SOB with their daily activity. Activities mowing the grass, going up and down stairs. No wheezing or dyspnea. Patient denies feeling of chest tightness/congestion in the chest. Patient does not have a new or concerning cough, and denies hemoptysis. Patient does not have a chronic daily cough. Denies regular or recent fevers/chills. Patient does not have any significant unintentional weight loss. Chest cold a few weeks after flu shot. Only lasted a few days. Went to [facility] and was diagnosed with Barretts. On budesonide tablet twice daily. On Trelegy daily, feels like it works better. Last 12 Encounter Wt Readings: Date: Wt: 09/10/2024 93.9 kg (207 lb 0.2 oz) 09/01/2024 92.1 kg (203 lb) 08/25/2024 92.1 kg (203 lb) 08/25/2024 92.1 kg (203 lb) 08/18/2024 94.8 kg (208 lb 15.9 oz) 05/18/2024 94.8 kg (209 lb) 03/12/2024 94.1 kg (207 lb 8 oz) 02/04/2024 93 kg (205 lb) 12/19/2023 92.1 kg (203 lb) 11/05/2023 89.8 kg (198 lb) 10/06/2023 89.8 kg (198 lb) 09/18/2023 93.9 kg (207 lb) COPD: managed by Dr. Lundberg/Harriett LO Medication Treatment: Are you using regular inhalers?: Yes Past Medical History: PAST MEDICAL HISTORY Diagnosis Date ADHD (attention deficit hyperactivity disorder) Arrhythmia Arthritis Bipolar 1 disorder ([facility]) Dr. Easley [facility] Chronic obstructive pulmonary disease ([facility]) 04/19/2019 Chronic obstructive pulmonary disease ([facility]) CML (chronic myeloid leukemia) ([facility]) 02/13/2015 Dr. 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 Vasquez Neurologist Multiple sclerosis ([facility]) 10/2005 Dr. Mauricio Vasquez Neurologist Osteoarthritis of left knee 01/2022 Other symptoms involving abdomen and pelvis(789.9) Palpitations Schizophrenia ([facility]) Dr. Easley [facility] Snoring Substance abuse rule out 03/15/2015 Syncope Tobacco abuse Surgical Hx: PAST SURGICAL HISTORY Procedure Laterality Date BONE [...] elbow lateral epicondyle/tendon debridement TONSILLECTOMY HX Family Hx: FAMILY HISTORY Problem Relation Age of Onset Heart Mother Prostate Cancer Father at age 70 Lung Cancer Sister No Known Problems Brother Cancer Maternal Grandmother throat cancer Ischemic Heart Disease Maternal Grandmother other (brain hemorrhage) Maternal Grandmother Diabetes Maternal Grandfather Stroke Paternal Grandfather Heart Paternal Grandfather Cancer Maternal Aunt stomach Cancer Other Father's sister's son has CML Lung Cancer Paternal Uncle Allergies: ALLERGIES Allergen Reactions Aspirin GI Upset Penicillins Hives Pollen Itching Topamax [Topiramate] Other: See Comments Severe migraines Shellfish Derived Unknown Was told per Dr. Friend needs an Epi pen for this allergy per lab work Social History Tobacco Use: Types: Cigarettes Review Of Systems: See HPI for ROS All of the remainder systems were reviewed and negative. PHYSICAL EXAMINATION: BP 122/80 Pulse 67 Resp 15 Wt 206 lb (93.4kg) SpO2 97% General appearance: well appearing, in no acute distress, and alert Skin: skin color, texture, turgor normal, no rashes or lesions Neck: Supple, no adenopathy; thyroid symmetric, normal size Respiratory: lungs clear to auscultation no wheezing or rhonchi Cardiovascular: Negative. RRR without murmur, gallop, or rubs. No ectopy Musculoskeletal: Extremities normal. No deformities, edema, or skin discoloration. Neuro: Oriented X 3 Data Review I have visually reviewed imaging and testing below CT imaging done today was reviewed and analyzed independently by practitioner and awaiting radiology review. CT was compared to prior CT chest. No nodules of concern were noted. Prior PFTS: SPIROMETRY BASELINE ONLY ([id number]) - ordered on 08/25/24 No textual results for order. SPIROMETRY BASELINE ONLY ([id number]) - ordered on 01/01/22 No textual results for order. Assessment and Plan: 1. Pulmonary Nodule: There are no lung nodules noted on today's scan. Recommended follow-up in one year. This recommendation is subject to change, pending final radiology report. The patient was counseled on the importance of adherence to annual LDCT lung cancer screening, impact of comorbidities and ability or willingness to undergo diagnosis and treatment. 2. Nicotine Dependence, Current: Smoking cessation encouraged. Offered patient assistance programs and treatment. Patient plans to continue smoking Jose Maria Dominguez APRN.[facility] October 11, 2024 I spent a total of 30 minutes on the date of the service which included preparing to see the patient, [id number] patient care, completing clinical documentation, performing a medically appropriate examination, counseling and educating the patient/family/caregiver, ordering medications, tests, or procedures, communicating with other HCPs (not separately reported), independently interpreting results (not separately reported), communicating results to the patient/family/caregiver, and care coordination (not separately reported). documented in this encounter [facility] 10-07-2024 History of Present illness Narrative Radiology Service Progress Note PATIENT NAME: Otoniel Victoria DATE OF SERVICE: October 07, 2024 TIME: 12:40 PM PATIENT IDENTITY VERIFICATION COMPLETED USING TWO (2) IDENTIFIERS: Name and Date of confirmed by patient verbally. FALL SCREENING: Has the patient had 2 falls in the last year or 1 fall with injury or currently using an Ambulatory Assistive Device (Walker, Cane, Wheelchair, Crutches, etc.)? No PATIENT GENDER DATA: Male PATIENT RELEVANT IMPLANT DATA REVIEWED: Yes PATIENT PRESENTS WITH AN IMPLANTABLE OR ATTACHED GARMENT CUTTER: No RADIOLOGY DEPARTMENT: CT; Exam(s) Completed: Lung Screening PERIPHERAL IV DATA: Not applicable SIGNED BY: RT Mike(Colten) October 07, 2024 12:40 PM documented in this encounter [facility] 10-01-2024 Telephone encounter Note Order placed and message sent to scheduling. Jose Maria Dominguez APRN.CNP [facility] 10-01-2024 Miscellaneous Notes Order placed and message sent to scheduling. Jose Maria Dominguez APRN.CNP Patient has a follow up in the office on 10/11/2024. He was instructed at his last visit, 12/17/2022, to have repeat CT scan of his chest before the next visit. There is no order and patient would like to complete that before his appointment. Please place order and contact patient to schedule at [phone]. documented in this encounter [facility] 09-29-2024 Telephone encounter Note Patient has a follow up in the office on 10/11/2024. He was instructed at his last visit, 12/17/2022, to have repeat CT scan of his chest before the next visit. There is no order and patient would like to complete that before his appointment. Please place order and contact patient to schedule at [phone]. [facility] 09-16-2024 Telephone encounter Note Called patient and scheduled as directed Gail Schmidt [facility] 09-16-2024 Miscellaneous Notes Called patient and scheduled as directed Gail Schmidt Per another phone note from Anabela Trejo CNP Please inform pt. that I discussed his case with Dr. Heaton. Please schedule below: CBC/PCR for BCR/ABL then OV with Dr. Heaton about a week later in about 3 months-do not change provider. Thank you. Anabela Trejo APRN.[facility] Patient aware of information. PSS- please contact patient to schedule as directed below. Fawn Fontenot LPN Can let him know leukemia remains in deep molecular remission. Needs follow up OV with me in several weeks. Otoniel Heaton DO documented in this encounter [facility] 09-15-2024 Telephone encounter Note Noted in another phone encounter from Dr.Masci Shefali Fairbanks [facility] 09-15-2024 Miscellaneous Notes Noted in another phone encounter from Dr.Masci Shefali [place] Please inform pt. that I discussed his case with Dr. Heaton. Please schedule below: CBC/PCR for BCR/ABL then OV with Dr. Heaton about a week later in about 3 months-do not change provider. Thank you. Anabela Trejo APRN.[employer] documented in this encounter [facility] 09-15-2024 Telephone encounter Note Per another phone note from Anabela Trejo CNP Please inform pt. that I discussed his case with Dr. Heaton. Please schedule below: CBC/PCR for BCR/ABL then OV with Dr. Heaton about a week later in about 3 months-do not change provider. Thank you. THERESE Keys Pss [facility] 09-14-2024 Telephone encounter Note Using prior TE. same day/sent at different time [facility] Work Phone: 09-14-2024 Miscellaneous Notes Using prior TE. same day/sent at different time Per Dr. Heaton- CBC/PCR for BCR/ABL then OV with me about a week later in about 3 months. Fawn Fontenot LPN documented in this encounter [facility] 09-14-2024 Telephone encounter Note Please inform pt. that I discussed his case with Dr. Heaton. Please schedule below: CBC/PCR for BCR/ABL then OV with Dr. Heaton about a week later in about 3 months-do not change provider. Thank you. Anabela Trejo APRN.[employer] [facility] Work Phone: 09-14-2024 Telephone encounter Note Per Dr. Heaton- CBC/PCR for BCR/ABL then OV with me about a week later in about 3 months. Fawn Fontenot LPN [facility] 09-13-2024 Telephone encounter Note Patient aware of information. PSS- please contact patient to schedule as directed below. Fawn Fontenot LPN [facility] 09-12-2024 Telephone encounter Note Can let him know leukemia remains in deep molecular remission. Needs follow up OV with me in several weeks. Otoniel Heaton DO [facility] 09-10-2024 History of Present illness Narrative Chief Complaint Patient presents with: Established Patient HPI: Otoniel Victoria is a 54 year old male who presents here today for follow up CML. Per Dr. Heaton's previous note: H/o MS (exacerbating/remitting type; previous medications for MS: [...] no recurrence headache. Current therapy: 1) Scemblix. He was found to have significant gastric ulcer disease. Therapy changed to Scemblix so he could go on any PPI needed. About a week prior to 2019 he [...] Tissues: No significant finding. Lower thorax: Unremarkable. Program Engineer (topogram) images: Unremarkable. Ultrasound right upper quadrant [...] - Squamous epithelium with no diagnostic alteration. Pt. had MRI brain/seen by neuro for f/u MS earlier this month. He was not restarted on his MS med. Appetite:Good. Wt. stable. Energy level:Ok. Denies fevers or recent illness. Resp:denies cough or sob Cardiac:denies chest pain/palpitations GI:chronic abd pain-followed by GI/Dr. Friend at [facility], denies n/v, moving bowels regularly-on linzess :denies dysuria/hematuria Extrem:chronic leg pain r/t MS Neuro:neuropathy to legs Skin:denies rashes Heme:denies bleeding The ROS is otherwise negative. Past medical history, appointments, medications, allergies reviewed. No changes. EXAM: BP 118/73 Pulse 73 Temp 36.4 C (97.5 F) (Temporal) Wt 93.9 kg (207 lb 0.2 oz) SpO2 96% BMI 26.58 kg/m APPEARANCE Well appearing, alert, in no acute distress, well-hydrated, well nourished. HEART RRR with normal S1 and S2, no murmurs LUNG clear to auscultation LYMPH NODES No cervical lymphadenopathy, No supraclavicular lymphadenopathy, and No axillary lymphadenopathy. ABDOMEN bowel sounds normoactive, soft, non-tender EXTREMITIES No edema NEURO Awake, alert and oriented x 3, Normal gait, and No involuntary motions. SKIN Skin color, texture, turgor normal, no suspicious rashes or lesions LABS: Latest Ref Rng 03/04/2024 06/10/2024 09/07/2024 WBC 3.70 - 11.00 k/uL 10.92 8.18 8.32 RBC 4.20 - 6.00 m/uL 5.55 4.93 5.53 Hemoglobin 13.0 - 17.0 g/dL 15.2 13.6 15.4 Hematocrit 39.0 - 51.0 % 46.8 41.2 46.3 MCV 80.0 - 100.0 fL 84.3 83.6 83.7 MCH 26.0 - 34.0 pg 27.4 27.6 27.8 MCHC 30.5 - 36.0 g/dL 32.5 33.0 33.3 RDW-CV 11.5 - 15.0 % 14.7 14.7 15.0 Platelet Count 150 - 400 k/uL 274 229 209 MPV 9.0 - 12.7 fL 11.2 11.0 11.2 Neut% % 59.8 55.2 58.3 Abs Neut (ANC) 1.45 - 7.50 k/uL 6.53 4.52 4.85 Lymph% % 29.6 33.6 29.6 Abs Lymph 1.00 - 4.00 k/uL 3.23 2.75 2.46 Ashe% % 7.1 7.6 9.0 Abs Ashe <0.87 k/uL 0.78 0.62 0.75 Eosin% % 2.3 2.7 1.9 Abs Eosin <0.46 k/uL 0.25 0.22 0.16 Baso% % 0.4 0.4 0.5 Abs Baso <0.11 k/uL 0.04 0.03 0.04 Immature Gran % % 0.8 0.5 0.7 IMMATURE GRANS (ABS) <0.10 k/uL 0.09 0.04 0.06 NRBC /100 WBC 0.0 0.0 0.0 Absolute nRBC <0.01 k/uL <0.01 <0.01 <0.01 DTYPE Auto Auto Auto Latest Ref Rng 03/04/2024 06/10/2024 09/07/2024 Protein, Total 6.3 - 8.0 g/dL 7.8 6.8 7.3 Albumin 3.9 - 4.9 g/dL 5.0 (H) 4.8 5.0 (H) Calcium 8.5 - 10.2 mg/dL 10.4 (H) 9.1 10.1 Bilirubin, Total 0.2 - 1.3 mg/dL 0.5 0.4 0.4 Alkaline Phosphatase 38 - 113 U/L 106 100 106 AST 14 - 40 U/L 19 21 20 ALT 10 - 54 U/L 25 21 18 Glucose 74 - 99 mg/dL 96 88 104 (H) BUN 9 - 24 mg/dL 29 (H) 16 25 (H) Creatinine 0.73 - 1.22 mg/dL 1.12 1.00 1.03 Sodium 136 - 144 mmol/L 138 137 139 Potassium 3.7 - 5.1 mmol/L 4.6 4.2 4.4 Chloride 98 - 107 mmol/L 105 105 102 CO2 22 - 30 mmol/L 24 24 25 Anion Gap 8 - 15 mmol/L 9 8 12 eGFR >=60 mL/min/1.73m 79 90 86 Latest Ref Rng 03/04/2024 06/10/2024 09/07/2024 Magnesium 1.7 - 2.3 mg/dL 2.2 2.1 2.3 Latest Ref Rng 06/10/2024 09/07/2024 Phosphorus 2.7 - 4.8 mg/dL 2.9 3.6 Latest Ref Rng 09/07/2024 MPA Result No M protein is identified. M protein is present. ! Interpretation (MPA) Atypical restricted bands are present in the IgA and lambda regions. Consistent with IgA lambda monoclonal gammopathy. Staff Review (MPA) Reviewed by Michelle Fernandez MD IgG 700 - 1,600 mg/dL 493 (L) IgA 70 - 400 mg/dL 267 IgM 40 - 230 mg/dL 34 (L) [place] Free, Serum 3.3 - 19.4 mg/L 15.1 Lambda Free, Serum 5.7 - 26.3 mg/L 50.2 (H) K/L Ratio, Serum 0.26 - 1.65 0.30 ASSESSMENT/PLAN: 1. 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 Heaton's previous note: Assessment: -Diagnosis was incidental on work up for monoclonal protein--was found to have t(9;22) on cytogenetics. -There was a complete cytogenetic response at 1 year (repeat bone marrow biopsy January 2016). -Increasing transcript number on Gleevec. -Was doing well on Sprycel but developed gastric ulcers requiring higher dose PPI so therapy changed to Scemblix. -Tolerating well with no subjective side effects. -Reviewed labs. DMR as of 12/2023. -Maintaining deep molecular response. Plan: -Continue Scemblix. -Labs in 3 months. -Repeat PCR in 6 months. 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 -Serum monoclonal protein by immunofixation only. Not quantifiable by electrophoresis. -Repeat bone marrow biopsy 01/2021 suggested some progression with areas up to 10% plasma cells. -Whole-body bone CT 02/01/2021 revealed no lytic bone lesions. -Small increase in serum monoclonal protein but that has been observed in the past. -Free lambda light chain stable over the last 2 years. -Reviewed results recent bone marrow biopsy from [facility]--lower percentage PCs. Specimen not optimal. -Recent 24 hour urine--no MP by electrophoresis. Atypical lambda on immunofixation. -Recent mild hypercalcemia observed on CMP. Has been observed in the past. PTH has been checked. Spurious calcium results frequently seen on CMPs done here. Plan: -Repeat labs in 6 months. -May have to consider repeat bone marrow biopsy with amyloid stain. - Overall tolerating scemblix well overall. - No new concerning findings on exam. - Reviewed resulted labs with pt. - Continue scemblix at current dose. - Continue current medications. - Continue follow up with PCP/GI/Neuro. - Follow up pending all labs. - Pt. aware to call office with any questions/concerns. The patient indicates understanding of these issues and agrees with the plan. All documentation from previous visit of 03/12/24-Dr. Heaton was copied and pasted, documentation has been reviewed and edited as necessary for today's visit. Anabela Trejo APRN.[employer] documented in this encounter [facility] 09-06-2024 Telephone encounter Note Also Otoniel, you were scheduled for lab work today. Please get done gracie. Thank You Zoie [facility] 09-06-2024 Miscellaneous Notes Also Otoniel, you were scheduled for lab work today. Please get done gracie. Thank You Zoie Refill rx sent to [facility] for signature Prilosec 40mg to be sent to [facility]. Virginia Amaral LPN Patient called in and wanted his prescription sent to [facility]. Please assist. Huyen Izaguirre documented in this encounter [facility] 09-06-2024 Telephone encounter Note Refill rx sent to [facility] for signature Prilosec 40mg to be sent to [facility]. Virginia Amaral LPN [facility] 09-06-2024 Telephone encounter Note Prescription Refill Information The patient has been identified by name and date of : Yes Caregiver verified no other encounters exist for this prescription request: Yes Caregiver confirmed with patient/requestor that no other refills are due, in the near future, with this provider at this time: Yes The last office visit in the department: 03/12/2024 Does the patient have a future office visit with this provider/department: Yes Requested Prescriptions Pending Prescriptions Disp Refills omeprazole (PRILOSEC) 40 mg capsule 90 capsule 4 Sig: Take 1 capsule by mouth once daily. Pt. [facility] system. Virginia Amaral LPN September 06, 2024 2:14 PM [facility] 09-06-2024 Miscellaneous Notes Prescription Refill Information The patient has been identified by name and date of : Yes Caregiver verified no other encounters exist for this prescription request: Yes Caregiver confirmed with patient/requestor that no other refills are due, in the near future, with this provider at this time: Yes The last office visit in the department: 03/12/2024 Does the patient have a future office visit with this provider/department: Yes Requested Prescriptions Pending Prescriptions Disp Refills omeprazole (PRILOSEC) 40 mg capsule 90 capsule 4 Sig: Take 1 capsule by mouth once daily. Pt. Requested rx be sent to [facility] instead of [facility]. [facility] contacted to back rx out of their system. Virginia Amaral LPN September 06, 2024 2:14 PM documented in this encounter [facility] 09-06-2024 Telephone encounter Note Patient called in and wanted his prescription sent to [facility]. Please assist. Huyen Izaguirre [facility] 09-01-2024 Telephone encounter Note Pt noted on [facility] report with a PHQ of 12. Pt completed questionnaire for Neurology appt this date, will defer assessment as pt will be seen in person this date. Deferred to Neurology JONH Sharma [facility] 09-01-2024 Miscellaneous Notes Pt noted on [employer] report with a PHQ of 12. Pt completed questionnaire for Neurology appt this date, will defer assessment as pt will be seen in person this date. Deferred to Neurology JONH Sharma documented in this encounter [facility] 09-01-2024 History of Present illness Narrative Images from the original note were not included. [facility] FOLLOWUP/ESTABLISHED PATIENT VISIT PRINCIPAL NEUROLOGIC DIAGNOSIS: Multiple Sclerosis HISTORY OF ILLNESS HEADER: Date of onset: 2004 Date of diagnosis:2005 Disease course from Onset: Exacerbating/Remitting Disease course last year: Exacerbating/Remitting Medications for MS Used in the Past: Avonex (2005), IV Steroids (2005) and PO Steroids (taper was rough, IV no issues); Tecfidera (May 2013-Jan 2016 d/c due to PO chemo treatment; restarted 08/2016-Spring 2018 (ran out of refills); 05/2020-08/2021 d/c due to GI symptoms) Current Medication for MS: None Most recent Brain MRI: 09/01/2024 (stable); 04/15/2022 (stable) Most recent Cervical MRI: 12/10/2019 JCV + 07/19/2013 CHIEF COMPLAINT: Follow-up for monitoring off MS modifying therapy INTERVAL HISTORY: Usual treating team: Marcio/Jose The patient is accompanied by mother. The patient was last seen 04/15/2022, currently taking Not on DMT. Since the patient's last visit the patient reports overall feeling stable. Continues to follow with Dr. Heaton for CML and smoldering myeloma, he was on sprycel, but had ongoing GI issues and was switched scemblix which he has been on for about 2 years now. Is working with GI now for ongoing gastritis intermittent gastric ulcers. Per pt GI mentioned symptoms may be related to MS? Continues on prilosec and budesonide. Also on linzess, reports normal BM. CML stable, monitoring closely with labs, consider if need for repeat bone marrow biopsy. He reports no increased infections or hospitalizations. Ambulates without assistance. Denies any recent falls. Amble to complete ADLs independently. Taking adderall 40mg for ADHD, PCP is prescribing this. Gabapentin helps with nerve pains and leg pains for MS. [place] is helpful for leg pain as well, will help to take the pain away. PCP is prescribing this. ROS: Mood: Good/bright Follows with psychiatry, on viibryd, lamictal and abilify Spasticity:spasms and stiffness in legs, occasional wakes him up at night Bladder: feels like he's not emptying completely, on oxybutynin Bowel: Normal, linzess is helpful Fatigue: Severe Sleep: adequate, intermittently interrupted Neuro-QoL Functions (higher=better functioning) Flowsheet [facility] Office Visit from 09/01/2024 in [facility] Appointment from 06/10/2022 in [facility] Office Visit from 04/15/2022 in [facility] Upper Extremity Domain T Score 49 49 57 Lower Extremity Domain T Score 51 42 40 Cognitive Function Domain T Score 37 33 37 Positive Affect Well Being T Score -- -- -- Ability To Participate In Social Roles T Score 41 41 42 Satisfaction With Social Roles T Score 43 45 41 Neuro-QoL Symptoms (higher=worse symptoms) Flowsheet [facility] Office Visit from 09/01/2024 in [facility] Appointment from 06/10/2022 in [facility] Office Visit from 04/15/2022 in [facility] Sleep Domain T Score 59 61 62 Fatigue Domain T Score 58 62 56 Anxiety Domain T Score 58 58 55 Depression Domain T Score 59 58 57 Stigma Domain T Score 58 56 56 Emotional Behavior Dyscontrol T Score -- -- -- has a past medical history of ADHD (attention deficit hyperactivity disorder), Arrhythmia, Arthritis, Bipolar 1 disorder ([facility]), Chronic obstructive pulmonary disease ([facility]) (04/19/2019), Chronic obstructive pulmonary disease ([facility]), CML (chronic myeloid leukemia) ([facility]) (02/13/2015), COPD with chronic bronchitis ([facility]) (03/31/2019), COPD with chronic bronchitis ([facility]), Depression, H/O cold sores, Hypercholesteremia, Hypothyroidism, acquired (10/10/2023), Irritable bowel syndrome, Migraines, Multiple sclerosis ([facility]) (10/2005), Osteoarthritis of left knee (01/2022), Other symptoms involving abdomen and pelvis(789.9), Palpitations, Schizophrenia ([facility]), Snoring, Substance abuse rule out (03/15/2015), Syncope, and Tobacco abuse. He has no past medical history of Atrial fibrillation ([facility]), Blood dyscrasia, Chronic renal insufficiency, Complication of anesthesia, Congestive heart failure ([facility]), Congestive heart failure ([facility]), Epilepsy ([facility]), Glaucoma, Heart attack ([facility]), Kidney disease, Obstructive sleep apnea, Parkinson disease (HCC), Seizures (HCC), or Steroid long-term use. has a current medication list which includes the following prescription(s): omeprazole, slwjzqgiuut-ftrtegpzw-adonffos, budesonide, enteric coated, amphetamine-dextroamphetamine xr, [START ON 09/17/2024] amphetamine-dextroamphetamine xr, [START ON 10/16/2024] amphetamine-dextroamphetamine xr, dextroamphetamine-amphetamine, [START ON 09/17/2024] dextroamphetamine-amphetamine, [START ON 10/16/2024] dextroamphetamine-amphetamine, hydrocodone-acetaminophen, [START ON 09/17/2024] hydrocodone-acetaminophen, [START ON 10/16/2024] hydrocodone-acetaminophen, oxybutynin er, albuterol hfa, atenolol, gabapentin, gemfibrozil, asciminib, diclofenac, sildenafil, linaclotide, cyanocobalamin, syringe with needle (disp), dicyclomine, cholecalciferol (vitamin d3), lactobacillus rhamnosus, lamotrigine, aripiprazole, vilazodone, and systane ultra. EXAM: BP 126/79 Pulse 67 Ht 188 cm (6' 2) Wt 92.1 kg (203 lb) BMI 26.06 kg/m MSPT Results Flowsheet Row Office Visit from 06/13/2020 in [facility] Office Visit from 06/22/2019 in [facility] Office Visit from 10/09/2017 in [facility] Processing Speed Total Number Correct 30 -- -- Processing Speed Z score -- -- -- Dominant hand -- Right hand Right hand MDT Left Hand Time -- 28.92 -- MDT Right Hand Time -- 29.57 -- Walking Speed Test (25 feet) 0 8.54 -- General Appearance: well appearing, in no acute distress Mental status evaluation during the interview and examination showed normal level of consciousness, orientation, language, memory, praxis, and higher intellectual function Affect: Normal Extraocular movements: full, without CLARITA Facial sensation: Intact bilaterally Facial movements: Intact bilaterally Speech: normal Muscle strength (#/5): Right Left Upper Extremity: Deltoids 5 5 Biceps 5 5 Triceps 5 5- Merchandise Buyer 5 5- Lower extremity: Iliopsoas 5 5 Quadriceps 5 5 Hamstrings 5 5 Tibialis anterior 5 5- Gastrocnemius 5 5- Coordination: Upper extremity dexterity and rapid movements: Normal bilaterally Finger-nose: no dysmetria; coordination intact Standing balance: Impaired Standard gait: wide-based. Assistive device: independent RESULTS: CBC + Diff Component Value Date WBC 8.18 06/10/2024 HB 13.6 06/10/2024 HCT 41.2 06/10/2024 PLT 229 06/10/2024 ABSLYMPH 2.75 06/10/2024 CMP Component Value Date AST 21 06/10/2024 GLUC 88 06/10/2024 BUN 16 06/10/2024 CREAT 1.00 06/10/2024 NA 137 06/10/2024 K 4.2 06/10/2024 CHLOR 105 06/10/2024 ALT 21 06/10/2024 MRI Results: Discrete MRI Results Component Value Date Brain New T2 Lesions None Site 09/01/2024 Brain Enhancing Lesions None 09/01/2024 Cervical Spine New T2 Lesions None 08/08/2021 Cervical Spine New T2 Lesions None 08/08/2021 Cervical spine enhancing lesions None 08/08/2021 Cervical spine enhancing lesions None 08/08/2021 ASSESSMENT: Otoniel Victoria is a 54 year old male with RRMS, COPD, CML and smoldering myeloma. Not on MS DMT. No new neurological symptoms. Today's brain MRI reviewed and stable. Reviewed MRIs dating back to 2018 which are stable with no new T2 or enhancing MS lesions. He reports longstanding GI issues. EGD reports note gastritis, ulcers and possible barretts. He is following with GI. Reviewed that MS would not be contributing to gastritis or issues with stomach lining or GI ulcers. Prior tecfidera use may have contributed, however he has been off this medication for years now so would no longer be contributing. MS can contribute to constipation at times, however pt reports this is stable. He should continue to work with GI regarding ongoing GI issues including gastritis. We are concerned that starting MS medication may complicate his CML management. Zeposia which we previously discussed starting will sequester lymphocytes which may hinder lab monitoring for CML. We went back and reviewed his MRIs going back to 2016 which have been stable. Due to risk of DMTs at this time, will continue to monitor off DMT with annual MRI. In the future if needed, could consider zeposia or aubagio. Tysabri not an option as he is JCV +. PLAN: -Monitor off DMT -Brain & CS MRI 08/2025 -Continue gabapentin -PCP is managing adderall and norco -Psychiatry is Rx lamictal, abilify and viibryd -Follow up in 1 year with Marcio/Jose or Jose at [facility] Patient Health Education Discussed at Visit: Emotional Health/Wellness, Risks and Common side effects of MS medications, and Stretching I spent a total of 50 minutes on the date of the service which included preparing to see the patient, [id number] patient care, completing clinical documentation, performing a medically appropriate examination, counseling and educating the patient/family/caregiver, ordering medications, tests, or procedures, communicating results to the patient/family/caregiver, and care coordination (not separately reported). The patient was seen together with Dr. Buckley. Mckenna Garcia PA-C [facility] STAFF PHYSICIAN NOTE OF PERSONAL INVOLVEMENT IN CARE I have reviewed the follow-up note obtained and documented by the advanced practice provider and I personally participated in the jade components and have answered all the patient's questions. Otoniel Victoria is overall stable from an MS standpoint. Given stability would recommend continuing to monitor off DMT given DMTs may make it difficult to monitor/manage his CML. Additionally due not think his current GI symptoms are related to his MS, agree with above. Cheryl Buckley D.O. [facility] Staff documented in this encounter [facility] 09-01-2024 History of Present illness Narrative Radiology Service Progress Note DATE OF SERVICE: September 01, 2024 TIME: 8:12 AM PATIENT WEIGHT: 205LBS PATIENT IDENTITY VERIFICATION COMPLETED USING TWO (2) STANDARD IDENTIFIERS: Name and Date of confirmed by patient verbally and Name and Date of confirmed by identification band. FALL SCREENING: Has the patient had 2 falls in the last year or 1 fall with injury or currently using an Ambulatory Assistive Device (Walker, Cane, Wheelchair, Crutches, etc.)? No PATIENT GENDER DATA: Male ALLERGIES: Reviewed and unchanged CONTRAST ALLERGY: No EXAM: MRI - CONTRAST TYPE: GROUP II IV SITE: Ambulatory: A peripheral IV was started in the Right antecubital site with a Angio cath: 22 gauge. and A Saline lock was inserted per protocol IV SITE APPEARANCE: Clean,Dry and Intact SIGNATURE: Zuri Kumar RN PATIENT NAME: Otoniel Victoria DATE: September 01, 2024 TIME: 8:12 AM Radiology Service Progress Note PATIENT NAME: Otoniel Victoria DATE OF SERVICE: September 01, 2024 TIME: 8:40 AM PATIENT IDENTITY VERIFICATION COMPLETED USING TWO (2) IDENTIFIERS: Name and Date of confirmed by patient verbally and Name and Date of confirmed by identification band. FALL SCREENING: Has the patient had 2 falls in the last year or 1 fall with injury or currently using an Ambulatory Assistive Device (Walker, Cane, Wheelchair, Crutches, etc.)? No PATIENT GENDER DATA: Male PATIENT RELEVANT IMPLANT DATA REVIEWED: Yes PATIENT PRESENTS WITH AN IMPLANTABLE OR ATTACHED GARMENT CUTTER: No RADIOLOGY DEPARTMENT: MR; Exam(s) Completed: Head: Multiple Sclerosis PERIPHERAL IV DATA: Site assessment: Clean,Dry and Intact, Site disposition Discontinued SIGNED BY: RT Mono(R) September 01, 2024 8:40 AM documented in this encounter [facility] 08-26-2024 Telephone encounter Note SOCIAL WORK FOLLOW UP NOTE: CAN[facility]ER CENTER Pt noted on 1st time treatment report indicating need for a psychosocial assessment. Pt completed questionnaire for recent pulmonary OV, deferred to that provider to address any needs present. JONH Sharma [facility] 08-26-2024 Miscellaneous Notes SOCIAL WORK FOLLOW UP NOTE: CANCER CENTER Pt noted on 1st time treatment report indicating need for a psychosocial assessment. Pt completed questionnaire for recent pulmonary OV, deferred to that provider to address any needs present. Staci Heller, [facility] documented in this encounter [facility] 08-25-2024 History of Present illness Narrative PULM FUNCTION: Provider: Harriett Gregorio PA-C Assisting Tech: Myriam Ragsdale RPFT Spirometry: 1 documented in this encounter [facility] 08-25-2024 History of Present illness Narrative Patient: Otoniel Victoria PCP: Noman Dean DO CC: follow up HPI: Otoniel Victoria 54 year old male current daily smoker, 30 pack years with PMH significant for ADHD, bipolar, CML, hypercholesterolemia, IBS, MS, Schizophrenia, and COPD. Last office visit 12/25/2022 with myself. Current maintenance therapy with Anoro and as needed Albuterol. Today, patient reports daily non-productive cough. No hemoptysis. Occasional wheezing. Exertional dyspnea with minimal effort. Patient states activities he could do previously cause him to be SOB. He has issues with lawn care, climbing stairs, and walking long distances. No fevers, chills, or night sweats. No unintended weight loss. No lower extremity edema. No GERD/heartburn. Follows with Dr. Parada at [facility]. 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 No recent hospitalizations or ED visits or upper respiratory infections. Has decreased smoking to 5-6 cigarettes daily. PAST MEDICAL HISTORY Diagnosis Date ADHD (attention deficit hyperactivity disorder) Arrhythmia Arthritis Bipolar 1 disorder ([facility]) Dr. Easley [facility] Chronic obstructive pulmonary disease ([facility]) 04/19/2019 Chronic obstructive pulmonary disease ([facility]) CML (chronic myeloid leukemia) ([facility]) 02/13/2015 Dr. 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 Vasquez Neurologist Multiple sclerosis ([facility]) 10/2005 Dr. Mauricio Vasquez Neurologist Osteoarthritis of left knee 01/2022 Other symptoms involving abdomen and pelvis(789.9) Palpitations Schizophrenia ([facility]) Dr. Easley [facility] Snoring Substance abuse rule out 03/15/2015 Syncope Tobacco abuse Allergies: Aspirin GI Upset Penicillins Hives Pollen Itching Topamax [Topiramate] Other: See Comments Comment:Severe migraines Shellfish Derived Unknown Comment:Was told per Dr. Friend needs an Epi pen for this allergy per lab work budesonide, enteric coated (ENTOCORT EC) 3 mg 24 hr capsule Take 6 mg by mouth once daily. amphetamine-dextroamphetamine XR (ADDERALL XR) 30 mg capsule Take 1 capsule by mouth once daily for 30 days. Patient should start on August 20, 2024. [START ON 09/17/2024] amphetamine-dextroamphetamine XR (ADDERALL XR) 30 mg capsule Take 1 capsule by mouth once daily for 30 days. Patient should start on September 17, 2024. [START ON 10/16/2024] amphetamine-dextroamphetamine XR (ADDERALL XR) 30 mg capsule Take 1 capsule by mouth once daily for 30 days. Patient should start on October 16, 2024. dextroamphetamine-amphetamine (ADDERALL) 10 mg tablet Take 1 tablet by mouth once daily for 30 days. In the afternoon as needed for concentration impairment Patient should start on August 20, 2024. [START ON 09/17/2024] dextroamphetamine-amphetamine (ADDERALL) 10 mg tablet Take 1 tablet by mouth once daily for 30 days. In the afternoon as needed for concentration impairment Patient should start on September 17, 2024. [START ON 10/16/2024] dextroamphetamine-amphetamine (ADDERALL) 10 mg tablet Take 1 tablet by mouth once daily for 30 days. In the afternoon as needed for concentration impairment Patient should start on October 16, 2024. HYDROcodone-acetaminophen (NORCO) 5-325 mg per tablet Take 1 tablet by mouth two times a day as needed for pain for up to 30 days. Patient should start on August 20, 2024. [START ON 09/17/2024] HYDROcodone-acetaminophen (NORCO) 5-325 mg per tablet Take 1 tablet by mouth two times a day as needed for pain for up to 30 days. Patient should start on September 17, 2024. [START ON 10/16/2024] HYDROcodone-acetaminophen (NORCO) 5-325 mg per tablet Take 1 tablet by mouth two times a day as needed for pain for up to 30 days. Patient should start on October 16, 2024. oxybutynin ER (DITROPAN XL) 15 mg 24 hr Extended Rel Tab Take 1 tablet by mouth once daily. albuterol HFA (VENTOLIN HFA) 90 mcg/actuation inhaler INHALE 2 PUFFS INSTRUCTED EVERY FOUR HOURS NEEDED FOR WHEEZING / SHORTNESS OF BREATH atenolol (TENORMIN) 25 mg tablet Take 1 tablet by mouth once daily. iv contrast (will be provided with radiology test) MRI Brain Inject, intravenously, once for 1 dose.No IV access, insert saline lock prior to beginning of sedation, infusion, injection of imaging exam.Discontinue saline lock post exam. If Pt. has a central line or IVAD, may access for administration according to line specific nursing protocol.Once exam is complete flush line and de-access according to line specific nursing protocol in the MR contrast administration guidelines link gabapentin (NEURONTIN) 600 mg tablet Take 1 tablet by mouth three times a day for 180 days. gemfibrozil (LOPID) 600 mg tablet Take 1 tablet by mouth two times a day. umeclidinium-vilanterol (ANORO ELLIPTA) 62.5-25 mcg/actuation inhaler INHALE 1 PUFF BY MOUTH ONCE DAILY DIRECTED amphetamine-dextroamphetamine XR (ADDERALL XR) 30 mg capsule Take 1 capsule by mouth once daily for 30 days. Do not start before May 25, 2024. omeprazole (PRILOSEC) 40 mg capsule take 1 capsule by mouth once daily asciminib (SCEMBLIX) 40 mg tablet Take 2 tablets (80 mg) by mouth once daily on an empty stomach. Avoid food 2 hours prior and 1 hour after taking diclofenac (VOLTAREN) 1 % topical gel Apply 2 g to affected area four times daily. sildenafil (VIAGRA) 100 mg tablet Take 1 tablet by mouth once daily as needed. Generic okay linaCLOtide (LINZESS) 290 mcg capsule Take 290 mcg by mouth once daily. cyanocobalamin 1,000 mcg/mL Inject 1 ml IM once a week x 4 weeks then 1 ml IM every other week for 8 weeks then 1 ml IM once a month Syringe with Needle, Disp, 1 mL 25 gauge x 1 syrg 1 Syringe as directed. linaCLOtide (LINZESS) 72 mcg capsule take 1 [...] 1 Drop in both eyes twice daily. dicyclomine (BENTYL) 20 mg tablet [...] Take 40 mg by mouth once daily. Social History Tobacco Use Smoking status: Every Day Current packs/day: 0.50 Average packs/day: 0.5 packs/day for 35.0 years (17.5 ttl pk-yrs) Types: Cigarettes Smokeless tobacco: Never Tobacco comments: Started age 18 Vaping Use Vaping status: Never Used Substance Use Topics Alcohol use: Not Currently [...] noted above and updated in EMR. IMMUNIZATIONS Immunization History Administered Date(s) Administered COVID-19 original vaccine, age 12+ yr, monovalent (Zapstitch - PURPLE TOP) 08/07/2021 08/28/2021 09/25/2021 TD Adult 04/27/2013 diphtheria tetanus (DT) vaccine, pediatric 12/01/2001 influenza (IIV3) vaccine, age 6 mo - 64 yr, trivalent (AFLURIA, FLULAVAL, FLUVIRIN, FLUZONE) 09/14/2014 08/18/2024 influenza (IIV3) vaccine, trivalent (AFLURIA, FLULAVAL, FLUVIRIN, FLUZONE) 08/31/2014 influenza (IIV4) vaccine, age 6 mo - 64 yr, quadrivalent (AFLURIA, FLULAVAL, FLUZONE) 08/31/2015 08/14/2016 10/07/2017 10/07/2018 09/14/2019 09/13/2020 08/29/2021 08/13/2022 influenza (IIV4) vaccine, age 6 mo - 64 yr, quadrivalent, PF (AFLURIA, FLUARIX, FLULAVAL, FLUZONE) 09/18/2023 influenza vaccine, unspecified formulation 10/14/2007 09/23/2008 08/23/2009 09/14/2010 09/07/2011 08/22/2012 09/04/2013 novel influenza (W6Q2-68) vaccine, unspecified formulation 11/13/2009 pneumococcal conjugate (PCV) vaccine, unspecified formulation 10/23/2009 pneumococcal conjugate (PCV13) vaccine, 13 valent (PREVNAR 13) 09/13/2020 pneumococcal polysaccharide (PPV23) vaccine, 23 valent (PNEUMOVAX 23) 10/23/2009 10/07/2018 pneumococcal vaccine, unspecified formulation 10/23/2009 zoster (RZV) vaccine, recombinant (SHINGRIX) 01/01/2021 03/03/2021 ROS: All other systems reviewed as negative except for what is noted in HPI and review of systems. PHYSICAL EXAMINATION: BP (P) 112/62 Pulse (P) 62 Resp (P) 15 Wt 92.1 kg (203 lb) SpO2 (P) 97% BMI 27.53 kg/m Gen: No acute distress. Cooperative with examination. HEENT: Normocephalic. Sclera, conjunctiva clear. Edentulous. No thrush. Resp: No stridor, accessory respiratory muscle use, supra-sternal or intercostal retractions. No wheezes, crackles or rhonchi. CV: Regular rythm. Heart tones normal. Radial pulses normal. Ext: Warm and well perfused. No clubbing, cyanosis, edema. Skin: No rash, ecchymoses. Neuro: Mental status normal. Affect normal. No tremor. DATA: Laboratory and Imaging: PFT, 08/25/2024 CT Chest other findings: Last CT Chest - Impression Only CT CHEST WO IVCON Exam End: 11/18/2022 3:55 PM (Final result) Impression: IMPRESSION: Trace bilateral pleural effusions, with associated mild interstitial edema. Trace pericardial effusion. Dilated main pulmonary artery, measuring approximately 3.1 cm, which can be seen with pulmonary arterial hypertension. Stable subcentimeter pulmonary nodules. Stable 9 mm left adrenal adenoma.... Last XR Chest - Impression Only XR CHEST 2V FRONTAL/LAT Exam End: 05/17/2022 2:04 PM (Final result) Impression: IMPRESSION: Stable chest. No acute cardiopulmonary process. Chemical Weigher: YOBANY Transcribe Date/Time: May 17 2022 2:14P ... ASSESSMENT/PLAN: 1. Stage 2 moderate COPD by GOLD classification (HCC) - ICD9: 496, ICD10: J44.9 (primary diagnosis) PFTs stable despite ongoing smoking. Will change to triple therapy Trelegy to determine if patient has improvement in symptoms. Smoking cessation is critical. - SPIROMETRY BASELINE ONLY - FLUTICASONE FUR. 100 MCG-UMECLID 62.5 MCG-VILANT 25 MCG INHALAT.POWDER 2. Tobacco abuse - ICD9: 305.1, ICD10: Z72.0 Cessation encouraged. Physiologic and physical aspects of tobacco addiction as well as strategies for quitting were discussed. Counseling was given focusing on the harmful effects of this addiction especially given the patient's medical condition(s) which will be worsened because of the chemicals in tobacco Previously referred and seen by lung cancer screening. Patient needs follow up appointment and LDCT. Portions of this documentation were copied and pasted from previous office visit notes in order to provide a cohesive continuity of the history. The note has been reviewed and edited and updated as necessary. Harriett Gregorio PA-C documented in this encounter [facility] 08-18-2024 History of Present illness Narrative CC: Otoniel Victoria is a 54 year old male who presents to the office for follow up HPI: Seen in office on 05/18/2024, at that time: Started on vitamin B12 deficiency injections by IM in Oct. Hasn't had labs rechecked since then. Has chronic fatigue. GERD and epigastric pain, Had recent scope by Dr. Parada Gastroenterology, whom performed EGD in May 2023 and had testing done. Was found now to be allergic to shellfish and also concerns for potential ulcers again starting. Has had chronic symptoms. Was told to stop the omeprazole medication at that time but Dr. Heaton Transportation Manager due to concerns that his ulcerations will reoccur due to the chemo medication of his CML and smoldering myeloma. Was seen by Dr. Parada Gastroenterology in Dec to determine next steps and likely need for repeat EGD since abdominal / esophageal symptoms are continuing. He had a stomach emptying study completed on 01/07/24. He also had EGD on 01/13/24 for follow up by Dr. Parada. Just got the results recently - found to have normal emptying study. 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 Was also started on carafate medication but had a SE with GI upset. He has next follow up in May with DR. Parada. Is still taking the Linzess He continues to have intermittent fatigue, dyspnea [...] between this medication and the omeprazole medication. Is going to be having bone marrow biopsy recheck in [place]. ADHD, taking adderall XR in the morning. Sometimes feels his symptoms aren't well enough controlled in the afternoon/evening. Did have dose changes that he went through which seemed to help his symptoms better. Denies any SE from medication. Chronic b/l leg pain and MS, taking [place] as prescribed, tolerating well. Helps with ADLs and IADLs with dressing, bathing, gait, daily functioning. No new SE with medication. He is needing medications refilled. Depression, anxiety, bipolar, stable, seeing Psychiatrist. Bilateral superior area of his feet pain has improved Vitamin D deficiency, taking supplement Struggling with GI upset with eating foods such as [employer]. Also noticing bloating symptoms Has gained a few lbs recently Left elbow seems to be catching, has had surgery in the past on his elbow. Hasn't followed up with Orthopedics yet. Chronic neck pain, last MRI spine was 08/2021 which showed DDD in the cervical spine Currently, Was seen recently by DR. Parada Lace Tearing Supervisor for his abdominal symptoms as above. Dr. Parada is concerned that it is secondary to MS. Has upcoming MRI brain on 09/01 by Neurology and then will have a follow up with the specialist. Going to talk to the Neurologist about this concern. Has been having right jainism headaches. ADHD, taking adderall XR in the morning. Sometimes feels his symptoms aren't well enough controlled in the afternoon/evening. Did have dose changes that he went through which seemed to help his symptoms better. Denies any SE from medication. Chronic b/l leg pain and MS, taking [place] as prescribed, tolerating well. Helps with ADLs and IADLs with dressing, bathing, gait, daily functioning. No new SE with medication. He is needing medications refilled. Has had 2 syncope episodes in the last few months. 1st episode occurred when he was home alone, he didn't feel well- felt sick to his stomach, dizziness, cold chills before the passing out occured. No head injuries. PAST MEDICAL HISTORY Diagnosis Date ADHD (attention deficit hyperactivity disorder) Arrhythmia Arthritis Bipolar 1 disorder ([facility]) Dr. Easley [facility] Chronic obstructive pulmonary disease ([facility]) 04/19/2019 Chronic obstructive pulmonary disease ([facility]) CML (chronic myeloid leukemia) ([facility]) 02/13/2015 Dr. 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 Vasquez Neurologist Multiple sclerosis ([facility]) 10/2005 Dr. Mauricio Vasquez Neurologist Osteoarthritis of left knee 01/2022 Other symptoms involving abdomen and pelvis(789.9) Palpitations Schizophrenia ([facility]) Dr. Easley [facility] Snoring Substance abuse rule out 03/15/2015 [...] TONSILLECTOMY HX Current Outpatient Medications Medication Sig budesonide, enteric coated (ENTOCORT EC) 3 mg 24 hr capsule Take 6 mg by mouth once daily. [START ON 08/20/2024] amphetamine-dextroamphetamine XR (ADDERALL XR) 30 mg capsule Take 1 capsule by mouth once daily for 30 days. Patient should start on August 20, 2024. [START ON 09/17/2024] amphetamine-dextroamphetamine XR (ADDERALL XR) 30 mg capsule Take 1 capsule by mouth once daily for 30 days. Patient should start on September 17, 2024. [START ON 10/16/2024] amphetamine-dextroamphetamine XR (ADDERALL XR) 30 mg capsule Take 1 capsule by mouth once daily for 30 days. Patient should start on October 16, 2024. [START ON 08/20/2024] dextroamphetamine-amphetamine (ADDERALL) 10 mg tablet Take 1 tablet by mouth once daily for 30 days. In the afternoon as needed for concentration impairment Patient should start on August 20, 2024. [START ON 09/17/2024] dextroamphetamine-amphetamine (ADDERALL) 10 mg tablet Take 1 tablet by mouth once daily for 30 days. In the afternoon as needed for concentration impairment Patient should start on September 17, 2024. [START ON 10/16/2024] dextroamphetamine-amphetamine (ADDERALL) 10 mg tablet Take 1 tablet by mouth once daily for 30 days. In the afternoon as needed for concentration impairment Patient should start on October 16, 2024. [START ON 08/20/2024] HYDROcodone-acetaminophen (NORCO) 5-325 mg per tablet Take 1 tablet by mouth two times a day as needed for pain for up to 30 days. Patient should start on August 20, 2024. [START ON 09/17/2024] HYDROcodone-acetaminophen (NORCO) 5-325 mg per tablet Take 1 tablet by mouth two times a day as needed for pain for up to 30 days. Patient should start on September 17, 2024. [START ON 10/16/2024] HYDROcodone-acetaminophen (NORCO) 5-325 mg per tablet Take 1 tablet by mouth two times a day as needed for pain for up to 30 days. Patient should start on October 16, 2024. oxybutynin ER (DITROPAN XL) 15 mg 24 hr Extended Rel Tab Take 1 tablet by mouth once daily. albuterol HFA (VENTOLIN HFA) 90 mcg/actuation inhaler INHALE 2 PUFFS INSTRUCTED EVERY FOUR HOURS NEEDED FOR WHEEZING / SHORTNESS OF BREATH atenolol (TENORMIN) 25 mg tablet Take 1 tablet by mouth once daily. iv contrast (will be provided with radiology test) MRI Brain Inject, intravenously, once for 1 dose.No IV access, insert saline lock prior to beginning of sedation, infusion, injection of imaging exam.Discontinue saline lock post exam. If Pt. has a central line or IVAD, may access for administration according to line specific nursing protocol.Once exam is complete flush line and de-access according to line specific nursing protocol in the MR contrast administration guidelines link gabapentin (NEURONTIN) 600 mg tablet Take 1 tablet by mouth three times a day for 180 days. gemfibrozil (LOPID) 600 mg tablet Take 1 tablet by mouth two times a day. umeclidinium-vilanterol (ANORO ELLIPTA) 62.5-25 mcg/actuation inhaler INHALE 1 PUFF BY MOUTH ONCE DAILY DIRECTED amphetamine-dextroamphetamine XR (ADDERALL XR) 30 mg capsule Take 1 capsule by mouth once daily for 30 days. Do not start before May 25, 2024. omeprazole (PRILOSEC) 40 mg capsule take 1 capsule by mouth once daily asciminib (SCEMBLIX) 40 mg tablet Take 2 tablets (80 mg) by mouth once daily on an empty stomach. Avoid food 2 hours prior and 1 hour after taking diclofenac (VOLTAREN) 1 % topical gel Apply 2 g to affected area four times daily. sildenafil (VIAGRA) 100 mg tablet Take 1 tablet by mouth once daily as needed. Generic okay linaCLOtide (LINZESS) 290 mcg capsule Take 290 mcg by mouth once daily. cyanocobalamin 1,000 mcg/mL Inject 1 ml IM once a week x 4 weeks then 1 ml IM every other week for 8 weeks then 1 ml IM once a month Syringe with Needle, Disp, 1 mL 25 gauge x 1 syrg 1 Syringe as directed. linaCLOtide (LINZESS) 72 mcg capsule take 1 [...] 1 Drop in both eyes twice daily. dicyclomine (BENTYL) 20 mg tablet [...] Take 40 mg by mouth once daily. No current facility-administered medications for this visit. ALLERGIES Allergen Reactions Aspirin GI Upset Penicillins Hives Pollen Itching Topamax [Topiramate] Other: See Comments Severe migraines Shellfish Derived Unknown Was told per Dr. Friend needs an Epi pen for this allergy per lab work Social History Tobacco Use Smoking status: Every Day Current packs/day: 0.50 Average packs/day: 0.5 packs/day for 35.0 years (17.5 ttl pk-yrs) Types: Cigarettes Smokeless tobacco: Never Tobacco comments: Started age 18 Vaping Use Vaping status: Never Used Substance Use Topics Alcohol use: Not Currently Drug use: No ROS: See HPI PE: BP 110/70 Pulse 80 Temp (Src) 97.9 (Right Tympanic) Resp 16 Wt 208 lb 15.9 oz (94.8kg) Gen: A&OX3, NAD, non-toxic appearing, smells of tobacco, fatigued appearing HEENT: PERRLA, EOMs intact b/l, nares without drainage, pharynx without erythema, exudate, lesions, or drainage. Uvula midline. MMM Neck: No LAD, no thyromegaly, no meningismus. CV: RRR, no murmur Lungs: CTA b/l, no wheezing Antalgic gait No edema, normal pulses Abd: soft, NT, normal. BS Chronic leg and spine pain PDMP website checked and validated. All prescriptions have been APPROPRIATELY filled. No suspicious activity was identified. 08/19/2024 by Noman Dean DO ASSESSMENT/PLAN: 1. Multiple sclerosis (HCC) - ICD9: 340, ICD10: G35 (primary diagnosis) Chronic symptoms F/u with Neurologist Chronic leg and spine pain, improvements in his ADLs and IADLs with opiate therapy as below Continue to monitor, he is taking as prescribed - HYDROCODONE 5 MG-ACETAMINOPHEN 325 MG TABLET - HYDROCODONE 5 MG-ACETAMINOPHEN 325 MG TABLET - HYDROCODONE 5 MG-ACETAMINOPHEN 325 MG TABLET 2. Bilateral leg pain - ICD9: 729.5, ICD10: M79.604, M79.605 Chronic symptoms F/u with Neurologist Chronic leg and spine pain, improvements in his ADLs and IADLs with opiate therapy as below Continue to monitor, he is taking as prescribed - HYDROCODONE 5 MG-ACETAMINOPHEN 325 MG TABLET - HYDROCODONE 5 MG-ACETAMINOPHEN 325 MG TABLET - HYDROCODONE 5 MG-ACETAMINOPHEN 325 MG TABLET 3. Need for influenza vaccination - ICD9: V04.81, ICD10: Z23 - INFLUENZA VACCINE, AGE 6MO-64YR, TRIVALENT (AFLURIA, FLULAVAL, FLUVIRIN, FLUZONE) 4. Attention or concentration deficit - ICD9: 799.51, ICD10: R41.840 rx refilled Stable symptoms that are improved with the medication, no SE - DEXTROAMPHETAMINE-AMPHETAMINE ER 30 MG 24HR CAPSULE,EXTEND RELEASE - DEXTROAMPHETAMINE-AMPHETAMINE ER 30 MG 24HR CAPSULE,EXTEND RELEASE - DEXTROAMPHETAMINE-AMPHETAMINE ER 30 MG 24HR CAPSULE,EXTEND RELEASE - DEXTROAMPHETAMINE-AMPHETAMINE 10 MG TABLET - DEXTROAMPHETAMINE-AMPHETAMINE 10 MG TABLET - DEXTROAMPHETAMINE-AMPHETAMINE 10 MG TABLET 5. Essential hypertension, benign - ICD9: 401.1, ICD10: I10 - Controlled - Continue current medications - Recommend home blood pressure monitoring, to bring results to next visit - Encouraged sodium restriction, DASH or Mediterranean diet - Recommend regular aerobic exercise 6. Other hyperlipidemia - ICD9: 272.4, ICD10: E78.49 stable 7. Hypothyroidism, acquired - ICD9: 244.9, ICD10: E03.9 - Instructed patient on importance of taking on an empty stomach either first thing in the morning or at bedtime. Noman Dean DO Return if no improvement. Follow up with Noman Dean DO. To ER if develops chest pain, shortness of breath Discussed risks, benefits, alternatives, and potential side effects of medications. Patient/Guardian expressed understanding and agreed with the plan. See patient instructions. Noman Dean DO [address] [place] [address] documented in this encounter [facility] 08-16-2024 History of Present illness Narrative [facility] [...] laboratory parameters, disease state markers and outcomes. Office/provider notes have been reviewed prior to dispensing the medication. Current Outpatient Medications on File Prior to Visit Medication Sig albuterol HFA (VENTOLIN HFA) 90 mcg/actuation inhaler INHALE 2 PUFFS INSTRUCTED EVERY FOUR HOURS NEEDED FOR WHEEZING / SHORTNESS OF BREATH atenolol (TENORMIN) 25 mg tablet Take 1 tablet by mouth once daily. iv contrast (will be provided with radiology test) MRI Brain Inject, intravenously, once for 1 dose.No IV access, insert saline lock prior to beginning of sedation, infusion, injection of imaging exam.Discontinue saline lock post exam. If Pt. has a central line or IVAD, may access for administration according to line specific nursing protocol.Once exam is complete flush line and de-access according to line specific nursing protocol in the MR contrast administration guidelines link gabapentin (NEURONTIN) 600 mg tablet Take 1 tablet by mouth three times a day for 180 days. gemfibrozil (LOPID) 600 mg tablet Take 1 tablet by mouth two times a day. umeclidinium-vilanterol (ANORO ELLIPTA) 62.5-25 mcg/actuation inhaler INHALE 1 PUFF BY MOUTH ONCE DAILY DIRECTED dextroamphetamine-amphetamine (ADDERALL) 10 mg tablet Take 1 tablet by mouth once daily for 30 days. In the afternoon as needed for concentration impairment Do not start before July 21, 2024. amphetamine-dextroamphetamine XR (ADDERALL XR) 30 mg capsule Take 1 capsule by mouth once daily for 30 days. Do not start before July 21, 2024. HYDROcodone-acetaminophen (NORCO) 5-325 mg per tablet Take 1 tablet by mouth two times a day as needed for pain for up to 30 days. Do not start before July 21, 2024. oxybutynin ER (DITROPAN XL) 15 mg 24 hr Extended Rel Tab Take 1 tablet by mouth once daily. omeprazole (PRILOSEC) 40 mg capsule take 1 capsule by mouth once daily asciminib (SCEMBLIX) 40 mg tablet Take 2 tablets (80 mg) by mouth once daily on an empty stomach. Avoid food 2 hours prior and 1 hour after taking diclofenac (VOLTAREN) 1 % topical gel Apply 2 g to affected area four times daily. sildenafil (VIAGRA) 100 mg tablet Take 1 tablet by mouth once daily as needed. Generic okay linaCLOtide (LINZESS) 290 mcg capsule Take 290 mcg by mouth once daily. cyanocobalamin 1,000 mcg/mL Inject 1 ml IM once a week x 4 weeks then 1 ml IM every other week for 8 weeks then 1 ml IM once a month Syringe with Needle, Disp, 1 mL 25 gauge x 1 syrg 1 Syringe as directed. linaCLOtide (LINZESS) 72 mcg capsule take 1 [...] 1 Drop in both eyes twice daily. dicyclomine (BENTYL) 20 mg tablet [...] Take 40 mg by mouth once daily. No current facility-administered medications on file prior to visit. [facility] SPECIALTY CLINICAL ASSESSMENT - HEMATOLOGY ONCOLOGY V6: Assessment to use: Refill Date of influenza vaccination reminder: 08/21/2023 Date of most recent vaccination assessment: 08/21/2023 Treatment Plan Information: 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 [...] amylase levels monthly or as clinically necessary Est. Tx Plan Start Date: No information available Estimated Start Date Info: Per Dr Otoniel Heaton Discretion Est. Estimated Treatment Duration: Until progression or toxicity Jammie Cintron ([place]) documented in this encounter [facility] 08-10-2024 Telephone encounter Note Prescription Refill Information The patient has been identified by name and date of : Yes Caregiver verified no other encounters exist for this prescription request: Yes Caregiver confirmed with patient/requestor that no other refills are due, in the near future, with this provider at this time: No The last office visit in the department: 6/18/24 Does the patient have a future office visit with this provider/department: Yes Requested Prescriptions Pending Prescriptions Disp Refills albuterol HFA (VENTOLIN HFA) 90 mcg/actuation inhaler 18 g 11 Sig: INHALE 2 PUFFS INSTRUCTED EVERY FOUR HOURS NEEDED FOR WHEEZING / SHORTNESS OF BREATH Radha Crystal MA August 10, 2024 11:35 AM [facility] 08-10-2024 Miscellaneous Notes Prescription Refill Information The patient has been identified by name and date of : Yes Caregiver verified no other encounters exist for this prescription request: Yes Caregiver confirmed with patient/requestor that no other refills are due, in the near future, with this provider at this time: No The last office visit in the department: 05/18/24 Does the patient have a future office visit with this provider/department: Yes Requested Prescriptions Pending Prescriptions Disp Refills albuterol HFA (VENTOLIN HFA) 90 mcg/actuation inhaler 18 g 11 Sig: INHALE 2 PUFFS INSTRUCTED EVERY FOUR HOURS NEEDED FOR WHEEZING / SHORTNESS OF BREATH Radha Crystal MA August 10, 2024 11:35 AM documented in this encounter [facility] 07-20-2024 Telephone encounter Note Patient has been identified by name and date of : Patient phones for refill(s): Requested Prescriptions Pending Prescriptions Disp Refills atenolol (TENORMIN) 25 mg tablet 90 tablet 1 Sig: Take 1 tablet by mouth once daily. Date of last office visit in primary care: 05/18/2024 Date of next office visit in primary care: 08/18/2024 Please advise. Thank you. Velvet Alcantar LPN. [facility] 07-20-2024 Miscellaneous Notes Patient has been identified by name and date of : Patient phones for refill(s): Requested Prescriptions Pending Prescriptions Disp Refills atenolol (TENORMIN) 25 mg tablet 90 tablet 1 Sig: Take 1 tablet by mouth once daily. Date of last office visit in primary care: 05/18/2024 Date of next office visit in primary care: 08/18/2024 Please advise. Thank you. Velvet Alcantar LPN. documented in this encounter [facility] 07-01-2024 Telephone encounter Note Called to schedule MRI before next appointment with Mckenna Garcia [facility] 07-01-2024 Miscellaneous Notes Called to schedule MRI before next appointment with Mckenna Garcia documented in this encounter [facility] 06-28-2024 Telephone encounter Note Source : mychart from patient requesting refill. Delivery : e-script Requested Prescriptions Pending Prescriptions Disp Refills gabapentin (NEURONTIN) 600 mg tablet 90 tablet 1 Sig: Take 1 tablet by mouth three times a day for 180 days. DX : Patient last seen 04/15/2022 Next Appointment : none Jana Contreras [facility] 06-28-2024 Miscellaneous Notes Source : mychart from patient requesting refill. Delivery : e-script Requested Prescriptions Pending Prescriptions Disp Refills gabapentin (NEURONTIN) 600 mg tablet 90 tablet 1 Sig: Take 1 tablet by mouth three times a day for 180 days. DX : Patient last seen 04/15/2022 Next Appointment : none Jana Contreras documented in this encounter [facility] 06-28-2024 Telephone encounter Note Prescription Refill Information The patient has been identified by name and date of : Yes Caregiver verified no other encounters exist for this prescription request: Yes Caregiver confirmed with patient/requestor that no other refills are due, in the near future, with this provider at this time: Yes The last office visit in the department: 05/18/24 Does the patient have a future office visit with this provider/department: Yes 08/18/24 Requested Prescriptions Pending Prescriptions Disp Refills gemfibrozil (LOPID) 600 mg tablet 90 tablet 1 Sig: Take 1 tablet by mouth two times a day. Farzana Martin LPN June 28, 2024 12:25 PM [facility] 06-28-2024 Miscellaneous Notes Prescription Refill Information The patient has been identified by name and date of : Yes Caregiver verified no other encounters exist for this prescription request: Yes Caregiver confirmed with patient/requestor that no other refills are due, in the near future, with this provider at this time: Yes The last office visit in the department: 05/18/24 Does the patient have a future office visit with this provider/department: Yes 08/18/24 Requested Prescriptions Pending Prescriptions Disp Refills gemfibrozil (LOPID) 600 mg tablet 90 tablet 1 Sig: Take 1 tablet by mouth two times a day. Farzana Martin LPN June 28, 2024 12:25 PM documented in this encounter [facility] 06-10-2024 Telephone encounter Note Noted. Thank you, Maria Dolroes Randall APRN.CNP [facility] 06-10-2024 Miscellaneous Notes Noted. Thank you, Maria Dolores Randall APRN.CNP Patient returned call and said no need for urine test to be placed, to disregard; that Dr. Dean places a urine lab order at times. He is not having any concerns or infection sx's. Abeba Pettit RN Phoned patient left message to return call and ask to speak to a nurse. Checked for what? What symptoms is pt having? Is he concerned for UTI? Thank you, Maria Doloers Randall APRN.LALO Pt is coming in to get lab work done today and wondering if a urine test could be put in. Pt reports has not had his urine check recently. Please advise pt. Christina Verma LPN documented in this encounter [facility] 06-10-2024 Telephone encounter Note Patient returned call and said no need for urine test to be placed, to disregard; that Dr. Dean places a urine lab order at times. He is not having any concerns or infection sx's. Abeba Pettit RN [facility] 06-10-2024 Telephone encounter Note Phoned patient left message to return call and ask to speak to a nurse. [facility] 06-10-2024 Telephone encounter Note Checked for what? What symptoms is pt having? Is he concerned for UTI? Thank you, Maria Dolores Randall APRN.[employer] [facility] 06-10-2024 Telephone encounter Note Pt is coming in to get lab work done today and wondering if a urine test could be put in. Pt reports has not had his urine check recently. Please advise pt. Christina Verma LPN [facility] 06-10-2024 Telephone encounter Note I spoke to the patient and informed him we will be checking myeloma labs (including urines) in August. Fawn Fontenot LPN [facility] 06-10-2024 Miscellaneous Notes I spoke to the patient and informed him we will be checking myeloma labs (including urines) in August. Fawn Fontenot LPN Patient requesting urine order when he comes in for lab work today. He states it has been a while since it has been ordered. documented in this encounter [facility] 06-10-2024 Telephone encounter Note Patient requesting urine order when he comes in for lab work today. He states it has been a while since it has been ordered. [facility] Work Phone: 05-18-2024 History of Present illness Narrative CC: Otoniel Victoria is a 53 year old male who presents to the office for follow up HPI: Started on vitamin B12 deficiency injections by IM in Oct. Hasn't had labs rechecked since then. Has chronic fatigue. GERD and epigastric pain, Had recent scope by Dr. Parada [facility]astroenterology, whom performed EGD in May 2023 and had testing done. Was found now to be allergic to shellfish and also concerns for potential ulcers again starting. Has had chronic symptoms. Was told to stop the omeprazole medication at that time but Dr. Heaton Transportation Manager due to concerns that his ulcerations will reoccur due to the chemo medication of his CML and smoldering myeloma. Was seen by Dr. Parada Gastroenterology in Dec to determine next steps and likely need for repeat EGD since abdominal / esophageal symptoms are continuing. He had a stomach emptying study completed on 01/07/24. He also had EGD on 01/13/24 for follow up by Dr. Parada. Just got the results recently - found to have normal emptying study. 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 Was also started on carafate medication but had a SE with GI upset. He has next follow up in May with DR. Parada. Is still taking the Linzess He continues to have intermittent fatigue, dyspnea [...] between this medication and the omeprazole medication. Is going to be having bone marrow biopsy recheck in [place]. ADHD, taking adderall XR in the morning. Sometimes feels his symptoms aren't well enough controlled in the afternoon/evening. Did have dose changes that he went through which seemed to help his symptoms better. Denies any SE from medication. Chronic b/l leg pain and MS, taking [place] as prescribed, tolerating well. Helps with ADLs and IADLs with dressing, bathing, gait, daily functioning. No new SE with medication. He is needing medications refilled. Depression, anxiety, bipolar, stable, seeing Psychiatrist. Bilateral superior area of his feet pain has improved Vitamin D deficiency, taking supplement Struggling with GI upset with eating foods such as [employer]. Also noticing bloating symptoms Has gained a few lbs recently Left elbow seems to be catching, has had surgery in the past on his elbow. Hasn't followed up with Orthopedics yet. Chronic neck pain, last MRI spine was 08/2021 which showed DDD in the cervical spine PAST MEDICAL HISTORY Diagnosis Date ADHD (attention deficit hyperactivity disorder) Arrhythmia Arthritis Bipolar 1 disorder ([facility]) Dr. Easley [facility] Chronic obstructive pulmonary disease ([facility]) 04/19/2019 Chronic obstructive pulmonary disease ([facility]) CML (chronic myeloid leukemia) ([facility]) 02/13/2015 Dr. 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 Vasquez Neurologist Multiple sclerosis ([facility]) 10/2005 Dr. Mauricio Vasquez Neurologist Osteoarthritis of left knee 01/2022 Other symptoms involving abdomen and pelvis(789.9) Palpitations Schizophrenia ([facility]) Dr. Easley [facility] Snoring Substance abuse rule out 03/15/2015 [...] TONSILLECTOMY HX Current Outpatient Medications Medication Sig omeprazole (PRILOSEC) 40 mg capsule take 1 capsule by mouth once daily asciminib (SCEMBLIX) 40 mg tablet Take 2 tablets (80 mg) by mouth once daily on an empty stomach. Avoid food 2 hours prior and 1 hour after taking umeclidinium-vilanterol (ANORO ELLIPTA) 62.5-25 mcg/actuation inhaler Inhale 1 Inhalation as instructed once daily. amphetamine-dextroamphetamine XR (ADDERALL XR) 30 mg capsule Take 1 capsule by mouth once daily for 30 days. dextroamphetamine-amphetamine (ADDERALL) 10 mg tablet Take 1 tablet by mouth once daily for 30 days. In the afternoon as needed for concentration impairment amphetamine-dextroamphetamine XR (ADDERALL XR) 30 mg capsule Take 1 capsule by mouth once daily for 30 days. Do not start before April 17, 2024. dextroamphetamine-amphetamine (ADDERALL) 10 mg tablet Take 1 tablet by mouth once daily for 30 days. In the afternoon as needed for concentration impairment Do not start before April 17, 2024. diclofenac (VOLTAREN) 1 % topical gel Apply 2 g to affected area four times daily. gabapentin (NEURONTIN) 600 mg tablet Take 1 tablet by mouth three times a day for 180 days. HYDROcodone-acetaminophen (NORCO) 5-325 mg per tablet Take 1 tablet by mouth two times a day as needed for pain for up to 30 days. Do not start before April 17, 2024. HYDROcodone-acetaminophen (NORCO) 5-325 mg per tablet Take 1 tablet by mouth two times a day as needed for pain for up to 30 days. Do not start before March 20, 2024. HYDROcodone-acetaminophen (NORCO) 5-325 mg per tablet Take 1 tablet by mouth two times a day as needed for pain for up to 30 days. Do not start before February 21, 2024. sildenafil (VIAGRA) 100 mg tablet Take 1 tablet by mouth once daily as needed. Generic okay albuterol HFA (VENTOLIN HFA) 90 mcg/actuation inhaler INHALE 2 PUFFS INSTRUCTED EVERY FOUR HOURS NEEDED FOR WHEEZING / SHORTNESS OF BREATH linaCLOtide (LINZESS) 290 mcg capsule Take 290 mcg by mouth once daily. atenolol (TENORMIN) 25 mg tablet take 1 tablet by mouth once daily oxybutynin ER (DITROPAN XL) 15 mg 24 hr Extended Rel Tab Take 1 tablet by mouth once daily. cyanocobalamin 1,000 mcg/mL Inject 1 ml IM once a week x 4 weeks then 1 ml IM every other week for 8 weeks then 1 ml IM once a month Syringe with Needle, Disp, 1 mL 25 gauge x 1 syrg 1 Syringe as directed. gemfibrozil (LOPID) 600 mg tablet Take 1 tablet by mouth two times a day. linaCLOtide (LINZESS) 72 mcg capsule take 1 [...] 1 Drop in both eyes twice daily. dicyclomine (BENTYL) 20 mg tablet [...] Take 40 mg by mouth once daily. No current facility-administered medications for this visit. ALLERGIES Allergen Reactions Aspirin GI Upset Penicillins Hives Pollen Itching Topamax [Topiramate] Other: See Comments Severe migraines Shellfish Derived Unknown Was told per DrArabella Friend needs an Epi pen for this allergy per lab work Social History Tobacco Use Smoking status: Every Day Packs/day: 0.50 Years: 35.00 Additional pack years: 0.00 Total pack years: 17.50 Types: Cigarettes Smokeless tobacco: Never Tobacco comments: Started age 18 Vaping Use Vaping Use: Never used Substance Use Topics Alcohol use: Not Currently Drug use: No ROS: See Hpi PE: BP 120/80 Pulse 64 Temp (Src) 97 (Right Tympanic) Resp 16 Wt 209 lb (94.8kg) Gen: A&OX3, NAD, non-toxic appearing, smells of tobacco, fatigued appearing HEENT: PERRLA, EOMs intact b/l, nares without drainage, pharynx without erythema, exudate, lesions, or drainage. Uvula midline. MMM Neck: No LAD, no thyromegaly, no meningismus. CV: RRR, no murmur Lungs: CTA b/l, no wheezing Antalgic gait No edema, normal pulses Abd: soft, NT, normal. BS PDMP website checked and validated. All prescriptions have been APPROPRIATELY filled. No suspicious activity was identified. 05/18/2024 by Noman Dean DO ASSESSMENT/PLAN: 1. Vitamin D deficiency - ICD9: 268.9, ICD10: E55.9 (primary diagnosis) Recheck labs as ordered Chronic fatigue symptoms - VITAMIN D 25 HYDROXY 2. Attention deficit disorder, unspecified hyperactivity presence - ICD9: 314.00, ICD10: F98.8 rx refilled. Chronic, stable symptoms,taking medication as prescribed. - DEXTROAMPHETAMINE-AMPHETAMINE 10 MG TABLET - DEXTROAMPHETAMINE-AMPHETAMINE 10 MG TABLET - DEXTROAMPHETAMINE-AMPHETAMINE 10 MG TABLET - DEXTROAMPHETAMINE-AMPHETAMINE ER 30 MG 24HR CAPSULE,EXTEND RELEASE - DEXTROAMPHETAMINE-AMPHETAMINE ER 30 MG 24HR CAPSULE,EXTEND RELEASE - DEXTROAMPHETAMINE-AMPHETAMINE ER 30 MG 24HR CAPSULE,EXTEND RELEASE 3. Attention deficit disorder, unspecified hyperactivity presence - ICD9: 314.00, ICD10: F98.8 rx refilled. Chronic, stable symptoms,taking medication as prescribed. - DEXTROAMPHETAMINE-AMPHETAMINE 10 MG TABLET - DEXTROAMPHETAMINE-AMPHETAMINE 10 MG TABLET - DEXTROAMPHETAMINE-AMPHETAMINE 10 MG TABLET - DEXTROAMPHETAMINE-AMPHETAMINE ER 30 MG 24HR CAPSULE,EXTEND RELEASE 4. Multiple sclerosis (HCC) - ICD9: 340, ICD10: G35 rx refilled. Chronic, stable symptoms,taking medication as prescribed. F/u with Neurologist Pain medication is helping with ADLs and IADLs Check urine tox as ordered - HYDROCODONE 5 MG-ACETAMINOPHEN 325 MG TABLET - HYDROCODONE 5 MG-ACETAMINOPHEN 325 MG TABLET - HYDROCODONE 5 MG-ACETAMINOPHEN 325 MG TABLET - COMPREHENSIVE METABOLIC PANEL - COMPLETE BLOOD COUNT AND DIFFERENTIAL 5. Bilateral leg pain - ICD9: 729.5, ICD10: M79.604, M79.605 rx refilled. Chronic, stable symptoms,taking medication as prescribed. F/u with Neurologist Pain medication is helping with ADLs and IADLs Check urine tox as ordered - HYDROCODONE 5 MG-ACETAMINOPHEN 325 MG TABLET - HYDROCODONE 5 MG-ACETAMINOPHEN 325 MG TABLET - HYDROCODONE 5 MG-ACETAMINOPHEN 325 MG TABLET - COMPREHENSIVE METABOLIC PANEL - COMPLETE BLOOD COUNT AND DIFFERENTIAL 6. Vitamin B12 deficiency - ICD9: 266.2, ICD10: E53.8 Continue injection, recheck labs - VITAMIN B12 Noman Dean DO Return if no improvement. Follow up with Noman Dean DO. To ER if develops chest pain, shortness of breath, . Discussed risks, benefits, alternatives, and potential side effects of medications. Patient/Guardian expressed understanding and agreed with the plan. See patient instructions. Noman Dean DO [address] [place] [address] documented in this encounter [facility] 04-22-2024 History of Present illness Narrative [facility] [...] laboratory parameters, disease state markers and outcomes. 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 Avoid food 2 hours prior and 1 hour after taking umeclidinium-vilanterol (ANORO ELLIPTA) 62.5-25 mcg/actuation inhaler Inhale 1 Inhalation as instructed once daily. amphetamine-dextroamphetamine XR (ADDERALL XR) 30 mg capsule Take 1 capsule by mouth once daily for 30 days. dextroamphetamine-amphetamine (ADDERALL) 10 mg tablet Take 1 tablet by mouth once daily for 30 days. In the afternoon as needed for concentration impairment amphetamine-dextroamphetamine XR (ADDERALL XR) 30 mg capsule Take 1 capsule by mouth once daily for 30 days. Do not start before April 17, 2024. dextroamphetamine-amphetamine (ADDERALL) 10 mg tablet Take 1 tablet by mouth once daily for 30 days. In the afternoon as needed for concentration impairment Do not start before April 17, 2024. diclofenac (VOLTAREN) 1 % topical gel Apply 2 g to affected area four times daily. gabapentin (NEURONTIN) 600 mg tablet Take 1 tablet by mouth three times a day for 180 days. HYDROcodone-acetaminophen (NORCO) 5-325 mg per tablet Take 1 tablet by mouth two times a day as needed for pain for up to 30 days. Do not start before April 17, 2024. sildenafil (VIAGRA) 100 mg tablet Take 1 tablet by mouth once daily as needed. Generic okay albuterol HFA (VENTOLIN HFA) 90 mcg/actuation inhaler INHALE 2 PUFFS INSTRUCTED EVERY FOUR HOURS NEEDED FOR WHEEZING / SHORTNESS OF BREATH linaCLOtide (LINZESS) 290 mcg capsule Take 290 mcg by mouth once daily. atenolol (TENORMIN) 25 mg tablet take 1 tablet by mouth once daily oxybutynin ER (DITROPAN XL) 15 mg 24 hr Extended Rel Tab Take 1 tablet by mouth once daily. omeprazole (PRILOSEC) 40 mg capsule take 1 capsule by mouth once daily cyanocobalamin 1,000 mcg/mL Inject 1 ml IM once a week x 4 weeks then 1 ml IM every other week for 8 weeks then 1 ml IM once a month Syringe with Needle, Disp, 1 mL 25 gauge x 1 syrg 1 Syringe as directed. gemfibrozil (LOPID) 600 mg tablet Take 1 tablet by mouth two times a day. linaCLOtide (LINZESS) 72 mcg capsule take 1 [...] 1 Drop in both eyes twice daily. dicyclomine (BENTYL) 20 mg tablet [...] Take 40 mg by mouth once daily. No current facility-administered medications on file prior to visit. [facility] Visit Assessment - Hematology/Oncology: Assessment [...] Estimated Treatment Duration: Until progression or toxicity Beverly Cruz documented in this encounter [facility] 04-19-2024 Telephone encounter Note Needs appointment [facility] 04-19-2024 Miscellaneous Notes Needs appointment [facility] 12/25/22 Patient phones requesting refills as follows: Requested Prescriptions Pending Prescriptions Disp Refills umeclidinium-vilanterol (ANORO ELLIPTA) 62.5-25 mcg/actuation inhaler 1 Each 11 Please review and advise. Lady Dorman LPN documented in this encounter [facility] 04-19-2024 Telephone encounter Note [facility] 12/25/22 Patient phones requesting refills as follows: Requested Prescriptions Pending Prescriptions Disp Refills umeclidinium-vilanterol (ANORO ELLIPTA) 62.5-25 mcg/actuation inhaler 1 Each 11 Please review and advise. Lady Dorman LPN [facility] 03-29-2024 Telephone encounter Note Patient informed of such. YAZMIN Becerra [facility] 03-29-2024 Miscellaneous Notes Patient informed of such. YAZMIN Becerra [facility] website checked and validated. All prescriptions have been APPROPRIATELY filled. No suspicious activity was identified. 03/29/2024 by Maria Dolores Randall APRN.CNP The following approved medication requests have been transmitted electronically. Requested Prescriptions Signed Prescriptions Disp Refills amphetamine-dextroamphetamine XR (ADDERALL XR) 30 mg capsule 30 capsule 0 Sig: Take 1 capsule by mouth once daily for 30 days. Authorizing Provider: MARIA DOLORES RANDALL dextroamphetamine-amphetamine (ADDERALL) 10 mg tablet 30 tablet 0 Sig: Take 1 tablet by mouth once daily for 30 days. In the afternoon as needed for concentration impairment Authorizing Provider: MARIA DOLORES RANDALL APRN.CNP Pt calling and his Adderall he needs to slate picker should be sent to [facility]. Pt's prescription for March are at [facility]. [facility] Please send new RX for pick now. Please advise pt when they have been sent. documented in this encounter [facility] 03-29-2024 Telephone encounter Note [facility] website checked and validated. All prescriptions have been APPROPRIATELY filled. No suspicious activity was identified. 03/29/2024 by Maria Dolores Randall APRN.CNP The following approved medication requests have been transmitted electronically. Requested Prescriptions Signed Prescriptions Disp Refills amphetamine-dextroamphetamine XR (ADDERALL XR) 30 mg capsule 30 capsule 0 Sig: Take 1 capsule by mouth once daily for 30 days. Authorizing Provider: MARIA DOLORES RANDALL dextroamphetamine-amphetamine (ADDERALL) 10 mg tablet 30 tablet 0 Sig: Take 1 tablet by mouth once daily for 30 days. In the afternoon as needed for concentration impairment Authorizing Provider: MARIA DOLORES RANDALL APRN.[employer] T [facility] 03-29-2024 Telephone encounter Note Pt calling and his Adderall he needs to slate picker should be sent to [facility]. Pt's prescription for March are at [facility]. [facility] Please send new RX for pick now. Please advise pt when they have been sent. T [facility] 03-26-2024 Telephone encounter Note [facility] Please notify Noman Dean DO The following approved medication requests have been transmitted electronically. Requested Prescriptions Signed Prescriptions Disp Refills amphetamine-dextroamphetamine XR (ADDERALL XR) 30 mg capsule 30 capsule 0 Sig: Take 1 capsule by mouth once daily for 30 days. Do not start before April 17, 2024. Authorizing Provider: NOMAN DEAN dextroamphetamine-amphetamine (ADDERALL) 10 mg tablet 30 tablet 0 Sig: Take 1 tablet by mouth once daily for 30 days. In the afternoon as needed for concentration impairment Do not start before April 17, 2024. Authorizing Provider: NOMAN DEAN DO T [facility] 03-26-2024 Miscellaneous Notes Order sent to [place] as requesting Please notify Noman Dean DO The following approved medication requests have been transmitted electronically. Requested Prescriptions Signed Prescriptions Disp Refills amphetamine-dextroamphetamine XR (ADDERALL XR) 30 mg capsule 30 capsule 0 Sig: Take 1 capsule by mouth once daily for 30 days. Do not start before April 17, 2024. Authorizing Provider: NOMAN DEAN dextroamphetamine-amphetamine (ADDERALL) 10 mg tablet 30 tablet 0 Sig: Take 1 tablet by mouth once daily for 30 days. In the afternoon as needed for concentration impairment Do not start before April 17, 2024. Authorizing Provider: NOMAN DEAN DO Patient's spouse calling and requesting patient's future Adderall 30 mg and 10 mg scripts be sent to [facility], since they have availability of the medication. If provider agreeable, please cancel Adderall 30 mg and 10 mg scripts at [facility] that were to start 04/17/24, and send to [facility] in [place]. No call back needed to patient if able to complete request. Thank you. documented in this encounter [facility] 03-24-2024 Telephone encounter Note [facility]-02/04/24 Labs-03/04/24Oct-05/18/24 Lucinda Fournier LPN [facility] 03-24-2024 Miscellaneous Notes [facility]-02/04/24 Labs-03/04/24Oct-05/18/24 Lucinda Fournier LPN documented in this encounter [facility] 03-24-2024 Telephone encounter Note Patient's spouse calling and requesting patient's future Adderall 30 mg and 10 mg scripts be sent to [facility], since they have availability of the medication. If provider agreeable, please cancel Adderall 30 mg and 10 mg scripts at [facility] that were to start 04/17/24, and send to [facility] in [place]. No call back needed to patient if able to complete request. Thank you. [facility] 03-22-2024 History of Present illness Narrative [facility] [...] laboratory parameters, disease state markers and outcomes. 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 amphetamine-dextroamphetamine XR (ADDERALL XR) 30 mg capsule Take 1 capsule by mouth once daily for 30 days. dextroamphetamine-amphetamine (ADDERALL) 10 mg tablet Take 1 tablet by mouth once daily for 30 days. In the afternoon as needed for concentration impairment [START ON 04/17/2024] HYDROcodone-acetaminophen (NORCO) 5-325 mg per tablet Take 1 tablet by mouth two times a day as needed for pain for up to 30 days. Do not start before April 17, 2024. HYDROcodone-acetaminophen (NORCO) 5-325 mg per tablet Take 1 tablet by mouth two times a day as needed for pain for up to 30 days. Do not start before March 20, 2024. HYDROcodone-acetaminophen (NORCO) 5-325 mg per tablet Take 1 tablet by mouth two times a day as needed for pain for up to 30 days. Do not start before February 21, 2024. [START ON 04/17/2024] amphetamine-dextroamphetamine XR (ADDERALL XR) 30 mg capsule Take 1 capsule by mouth once daily for 30 days. Do not start before April 17, 2024. amphetamine-dextroamphetamine XR (ADDERALL XR) 30 mg capsule Take 1 capsule by mouth once daily for 30 days. Do not start before March 20, 2024. [START ON 04/17/2024] dextroamphetamine-amphetamine (ADDERALL) 10 mg tablet Take 1 tablet by mouth once daily for 30 days. In the afternoon as needed for concentration impairment Do not start before April 17, 2024. dextroamphetamine-amphetamine (ADDERALL) 10 mg tablet Take 1 tablet by mouth once daily for 30 days. In the afternoon as needed for concentration impairment Do not start before March 20, 2024. sildenafil (VIAGRA) 100 mg tablet Take 1 tablet by mouth once daily as needed. Generic okay albuterol HFA (VENTOLIN HFA) 90 mcg/actuation inhaler INHALE 2 PUFFS INSTRUCTED EVERY FOUR HOURS NEEDED FOR WHEEZING / SHORTNESS OF BREATH linaCLOtide (LINZESS) 290 mcg capsule Take 290 mcg by mouth once daily. atenolol (TENORMIN) 25 mg tablet take 1 tablet by mouth once daily diclofenac (VOLTAREN) 1 % topical gel Apply 2 g to affected area four times daily. oxybutynin ER (DITROPAN XL) 15 mg 24 hr Extended Rel Tab Take 1 tablet by mouth once daily. omeprazole (PRILOSEC) 40 mg capsule take 1 capsule by mouth once daily cyanocobalamin 1,000 mcg/mL Inject 1 ml IM once a week x 4 weeks then 1 ml IM every other week for 8 weeks then 1 ml IM once a month Syringe with Needle, Disp, 1 mL 25 gauge x 1 syrg 1 Syringe as directed. asciminib (SCEMBLIX) 40 mg tablet Take 2 tablets (80 mg) by mouth once daily on an empty stomach. Avoid food 2 hours prior and 1 hour after taking gemfibrozil (LOPID) 600 mg tablet Take 1 tablet by mouth two times a day. linaCLOtide (LINZESS) 72 mcg capsule take 1 [...] mouth and INTO THE LUNGS once daily dicyclomine (BENTYL) 20 mg tablet Take 1 [...] 0.9 % (flush) 10 mL (BD POSIFLUSH) [facility] Visit Assessment - Hematology/Oncology: Assessment [...] toxicity Marcia Lezama documented in this encounter [facility] 03-15-2024 Miscellaneous Notes Source : electronic from pharmacy requesting refill. Delivery : e-script Requested Prescriptions Pending Prescriptions Disp Refills gabapentin (NEURONTIN) 600 mg tablet [Pharmacy Med Name: GABAPENTIN 600 MG TABLET] 90 tablet 1 Sig: Take 1 tablet by mouth three times a day. DX : Patient last seen 04/15/2022 Next Appointment : none Jana Contreras documented in this encounter [facility] 03-12-2024 History of Present illness Narrative Diagnosis: 1) [...] no recurrence headache. Current therapy: 1) Scemblix. He was found to have significant gastric ulcer disease. Therapy changed to Scemblix so he could go on any PPI needed. About a week prior to 2019 he [...] Tissues: No significant finding. Lower thorax: Unremarkable. Program Engineer (topogram) images: Unremarkable. Ultrasound right upper quadrant [...] for ongoing oncologic management. Interim history: He continues to tolerate asciminib well with no symptomatic side effect. Seeing GI for abdominal bloating and pain. He stopped Excedrin. Tylenol upsets his stomach. PMH, medications and allergies as below personally [...] Stable mood. PHYSICAL EXAM: Vitals: Blood pressure 118/79, pulse 70, temperature 36.8 C (98.3 F), temperature source Temporal, weight 94.1 kg (207 lb 8 oz), SpO2 100%. Well-appearing and in no acute distress. EYES: Sclerae are anicteric bilaterally. LYMPHATIC: There is no palpable cervical or supraclavicular adenopathy. RESPIRATORY: Inspiratory breath sounds are of diminished intensity in all sotelo. No rales, wheezes or rhonchi. CARDIOVASCULAR: Rhythm is regular. ABDOMEN: The abdomen is nondistended. Extremities: No swelling or edema. SKIN: No jaundice. LABS: Latest Ref [facility] 03/04/2024 WBC 3.70 - 11.00 k/uL 10.92 RBC 4.20 - 6.00 m/uL 5.55 Hemoglobin 13.0 - 17.0 g/dL 15.2 Hematocrit 39.0 - 51.0 % 46.8 MCV 80.0 - 100.0 fL 84.3 MCH 26.0 - 34.0 pg 27.4 MCHC 30.5 - 36.0 g/dL 32.5 RDW-CV 11.5 - 15.0 % 14.7 Platelet Count 150 - 400 k/uL 274 MPV 9.0 - 12.7 fL 11.2 Neut% % 59.8 Abs Neut (ANC) 1.45 - 7.50 k/uL 6.53 Lymph% % 29.6 Abs Lymph 1.00 - 4.00 k/uL 3.23 Ashe% % 7.1 Abs Ashe <0.87 k/uL 0.78 Eosin% % 2.3 Abs Eosin <0.46 k/uL 0.25 Baso% % 0.4 Abs Baso <0.11 k/uL 0.04 Immature Gran % % 0.8 IMMATURE GRANS (ABS) <0.10 k/uL 0.09 NRBC /100 WBC 0.0 Absolute nRBC <0.01 k/uL <0.01 DTYPE Auto Protein, Total 6.3 - 8.0 g/dL 7.8 Albumin 3.9 - 4.9 g/dL 5.0 (H) Calcium 8.5 - 10.2 mg/dL 10.4 (H) Bilirubin, Total 0.2 - 1.3 mg/dL 0.5 Alkaline Phosphatase 38 - 113 U/L 106 AST 14 - 40 U/L 19 ALT 10 - 54 U/L 25 Glucose 74 - 99 mg/dL 96 BUN 9 - 24 mg/dL 29 (H) Creatinine 0.73 - 1.22 mg/dL 1.12 Sodium 136 - 144 mmol/L 138 Potassium 3.7 - 5.1 mmol/L 4.6 Chloride 97 - 105 mmol/L 105 CO2 22 - 30 mmol/L 24 Anion Gap 9 - 18 mmol/L 9 eGFR >=60 mL/min/1.73m 79 PATHOLOGY: Bone marrow biopsy 01/03/2021: A [place] [...] DIAGNOSIS: 46,XY[20] INTERPRETATION: Normal, male karyotype ASSESSMENT/PLAN: (C92.10) CML (chronic myeloid leukemia) (HCC) (primary encounter diagnosis) Assessment: -Diagnosis was incidental on work up for monoclonal protein--was found to have t(9;22) on cytogenetics. -There was a complete cytogenetic response at 1 year (repeat bone marrow biopsy January 2016). -Increasing transcript number on Gleevec. -Was doing well on Sprycel but developed gastric ulcers requiring higher dose PPI so therapy changed to Scemblix. -Tolerating well with no subjective side effects. -Reviewed labs. DMR as of 12/2023. -Maintaining deep molecular response. Plan: -Continue Scemblix. -Labs in 3 months. -Repeat PCR in 6 months. 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 -Serum monoclonal protein by immunofixation only. Not quantifiable by electrophoresis. -Repeat bone marrow biopsy 01/2021 suggested some progression with areas up to 10% plasma cells. -Whole-body bone CT 02/01/2021 revealed no lytic bone lesions. -Small increase in serum monoclonal protein but that has been observed in the past. -Free lambda light chain stable over the last 2 years. -Reviewed results recent bone marrow biopsy from [facility]--lower percentage PCs. Specimen not optimal. -Recent 24 hour urine--no MP by electrophoresis. Atypical lambda on immunofixation. -Recent mild hypercalcemia observed on CMP. Has been observed in the past. PTH has been checked. Spurious calcium results frequently seen on CMPs done here. Plan: -Repeat labs in 6 months. -May have to consider repeat bone marrow biopsy with amyloid stain. Portions of this documentation were copied and pasted from previous office visit notes in order to provide a cohesive continuity of the history. The note has been reviewed and edited and updated as necessary. I spent a total of 20 minutes on the date of the service which included preparing to see the patient, [id number] patient care, completing clinical documentation, obtaining and/or reviewing separately obtained history, performing a medically appropriate examination, counseling and educating the patient/family/caregiver, communicating with other HCPs (not separately reported), and communicating results to the patient/family/caregiver. Otoniel Heaton DO documented in this encounter [facility] 03-02-2024 Miscellaneous Notes Spoke with pt. Notified of results of BMBX @ [facility], also sent information to him via my chart. Pt. Voiced understanding Virginia Amaral LPN Can let him know the bone marrow biopsy he had done at [facility] was not the most optimal specimen but nonetheless did not show any significant increase in plasma cells and was essentially unchanged from his previous bone marrow biopsy in 2020. Otoniel Heaton DO documented in this encounter [facility] 02-18-2024 Procedure note [facility] 02-05-2024 Miscellaneous Notes Additional requested information faxed over and confirmation scanned into patients scanned documents. Janet Bartlett Staff from [facility] called needing more documentation. Please fax most recent office note, most recent labs and imaging results to [facility] for BMBX. Faxed over Gail Patient called in stating he wants to have BMBX done at [facility] and stated that Dr. Heaton was ok with that. Please fax Face sheet, BMBX orders to [facility] for scheduling. Patient has Medicare A and B so no outgoing referral is required. Huyen Izaguirre documented in this encounter [facility] 02-04-2024 History of Present illness Narrative Radiology Service Progress Note PATIENT NAME: Otoniel Victoria DATE OF SERVICE: February 04, 2024 TIME: 12:59 PM PATIENT IDENTITY VERIFICATION COMPLETED USING TWO (2) IDENTIFIERS: Name and Date of confirmed by patient verbally. FALL SCREENING: Has the patient had 2 falls in the last year or 1 fall with injury or currently using an Ambulatory Assistive Device (Walker, Cane, Wheelchair, Crutches, etc.)? No PATIENT GENDER DATA: Male PATIENT RELEVANT IMPLANT DATA REVIEWED: Not Applicable PATIENT PRESENTS WITH AN IMPLANTABLE OR ATTACHED GARMENT CUTTER: No RADIOLOGY DEPARTMENT: General X-ray: Exam(s) Completed: Lower Extremity X-Ray(s): Foot, Bilateral and Wt. Bearing PERIPHERAL IV DATA: Not applicable SIGNED BY: RT Erica(R) February 04, 2024 12:59 PM documented in this encounter [facility] 02-04-2024 History of Present illness Narrative CC: Otoniel Victoria is a 53 year old male who presents to the office for follow up HPI: Started on vitamin B12 deficiency injections by IM in Oct. Hasn't had labs rechecked since then. Has chronic fatigue. GERD and epigastric pain, Had recent scope by Dr. [facility], whom performed EGD in May 2023 and had testing done. Was found now to be allergic to shellfish and also concerns for potential ulcers again starting. Has had chronic symptoms. Was told to stop the omeprazole medication at that time but Dr. Heaton Transportation Manager due to concerns that his ulcerations will reoccur due to the chemo medication of his CML and smoldering myeloma. Was seen by Dr. [facility] in Dec to determine next steps and likely need for repeat EGD since abdominal / esophageal symptoms are continuing. He had a stomach emptying study completed on 01/07/24. He also had EGD on 01/13/24 for follow up by Dr. Parada. Just got the results recently - found to have normal emptying study. 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 Was also started on carafate medication. He continues to have intermittent fatigue, dyspnea [...] between this medication and the omeprazole medication. Is going to be having bone marrow biopsy recheck in [place]. ADHD, taking adderall XR in the morning. Sometimes feels his symptoms aren't well enough controlled in the afternoon/evening. Did have dose changes that he went through which seemed to help his symptoms better. Denies any SE from medication. Chronic b/l leg pain and MS, taking [place] as prescribed, tolerating well. Helps with ADLs and IADLs with dressing, bathing, gait, daily functioning. No new SE with medication. He is needing medications refilled. Depression, anxiety, bipolar, stable, seeing Psychiatrist. Bilateral superior area of his feet, pain with trying to move his foot in dorsiflexion, comes and goes intermittently. No known injuries. Vitamin D deficiency, taking supplement PAST MEDICAL HISTORY Diagnosis Date ADHD (attention deficit hyperactivity disorder) Arrhythmia Arthritis Bipolar 1 disorder ([facility]) Dr. Easley [facility] Chronic obstructive pulmonary disease ([facility]) 04/19/2019 Chronic obstructive pulmonary disease ([facility]) CML (chronic myeloid leukemia) ([facility]) 02/13/2015 Dr. 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 Vasquez Neurologist Multiple sclerosis ([facility]) 10/2005 Dr. Mauricio Vasquez Neurologist Osteoarthritis of left knee 01/2022 Other symptoms involving abdomen and pelvis(789.9) Palpitations Schizophrenia ([facility]) Dr. Easley [facility] Snoring Substance abuse rule out 03/15/2015 [...] TONSILLECTOMY HX Current Outpatient Medications Medication Sig gabapentin (NEURONTIN) 600 mg tablet Take 1 tablet by mouth three times a day for 90 days. albuterol HFA (VENTOLIN HFA) 90 mcg/actuation inhaler INHALE 2 PUFFS INSTRUCTED EVERY FOUR HOURS NEEDED FOR WHEEZING / SHORTNESS OF BREATH linaCLOtide (LINZESS) 290 mcg capsule Take 290 mcg by mouth once daily. atenolol (TENORMIN) 25 mg tablet take 1 tablet by mouth once daily diclofenac (VOLTAREN) 1 % topical gel Apply 2 g to affected area four times daily. oxybutynin ER (DITROPAN XL) 15 mg 24 hr Extended Rel Tab Take 1 tablet by mouth once daily. omeprazole (PRILOSEC) 40 mg capsule take 1 capsule by mouth once daily cyanocobalamin 1,000 mcg/mL Inject 1 ml IM once a week x 4 weeks then 1 ml IM every other week for 8 weeks then 1 ml IM once a month Syringe with Needle, Disp, 1 mL 25 gauge x 1 syrg 1 Syringe as directed. asciminib (SCEMBLIX) 40 mg tablet Take 2 tablets (80 mg) by mouth once daily on an empty stomach. Avoid food 2 hours prior and 1 hour after taking gemfibrozil (LOPID) 600 mg tablet Take 1 tablet by mouth two times a day. linaCLOtide (LINZESS) 72 mcg capsule take 1 [...] mouth and INTO THE LUNGS once daily dicyclomine (BENTYL) 20 mg tablet Take 1 [...] Take 40 mg by mouth once daily. [START ON 04/17/2024] HYDROcodone-acetaminophen (NORCO) 5-325 mg per tablet Take 1 tablet by mouth two times a day as needed for pain for up to 30 days. Do not start before April 17, 2024. [START ON 03/20/2024] HYDROcodone-acetaminophen (NORCO) 5-325 mg per tablet Take 1 tablet by mouth two times a day as needed for pain for up to 30 days. Do not start before March 20, 2024. [START ON 02/21/2024] HYDROcodone-acetaminophen (NORCO) 5-325 mg per tablet Take 1 tablet by mouth two times a day as needed for pain for up to 30 days. Do not start before February 21, 2024. [START ON 04/17/2024] amphetamine-dextroamphetamine XR (ADDERALL XR) 30 mg capsule Take 1 capsule by mouth once daily for 30 days. Do not start before April 17, 2024. [START ON 03/20/2024] amphetamine-dextroamphetamine XR (ADDERALL XR) 30 mg capsule Take 1 capsule by mouth once daily for 30 days. Do not start before March 20, 2024. [START ON 02/21/2024] amphetamine-dextroamphetamine XR (ADDERALL XR) 30 mg capsule Take 1 capsule by mouth once daily for 30 days. Do not start before February 21, 2024. [START ON 04/17/2024] dextroamphetamine-amphetamine (ADDERALL) 10 mg tablet Take 1 tablet by mouth once daily for 30 days. In the afternoon as needed for concentration impairment Do not start before April 17, 2024. [START ON 03/20/2024] dextroamphetamine-amphetamine (ADDERALL) 10 mg tablet Take 1 tablet by mouth once daily for 30 days. In the afternoon as needed for concentration impairment Do not start before March 20, 2024. [START ON 02/21/2024] dextroamphetamine-amphetamine (ADDERALL) 10 mg tablet Take 1 tablet by mouth once daily for 30 days. In the afternoon as needed for concentration impairment Do not start before February 21, 2024. Current Facility-Administered Medications Medication Dose Route Frequency [...] Smoking status: Every Day Packs/day: 0.50 Years: 35.00 Additional pack years: 0.00 Total pack years: 17.50 Types: Cigarettes Smokeless tobacco: Never Tobacco comments: Started age 18 Vaping Use Vaping Use: Never used Substance Use Topics Alcohol use: Not Currently Drug use: No ROS: See HPI PE: BP 100/60 Pulse 80 Temp (Src) 97.5 (Right Tympanic) Resp 16 Wt 205 lb (93.0kg) Gen: A&OX3, NAD, non-toxic appearing, smells of tobacco, fatigued appearing HEENT: PERRLA, EOMs intact b/l, nares without drainage, pharynx without erythema, exudate, lesions, or drainage. Uvula midline. MMM Neck: No LAD, no thyromegaly, no meningismus. CV: RRR, no murmur Lungs: CTA b/l, no wheezing Antalgic gait No edema, normal pulses Abd: soft, NT, normal. BS B/l dorsal foot soreness at proximal foot without obvious swelling or skin changes PDMP website checked and validated. All prescriptions have been APPROPRIATELY filled. No suspicious activity was identified. 02/04/2024 by Noman Dean DO ASSESSMENT/PLAN: 1. Weight gain - ICD9: 783.1, ICD10: R63.5 (primary diagnosis) Recheck thyroid labs, need for more consistent good dietary choices and exercise as d/w him today 2. Multiple sclerosis (HCC) - ICD9: 340, ICD10: G35 rx refilled, helping with ADLs and IADLs, he is taking as prescribed - HYDROCODONE 5 MG-ACETAMINOPHEN 325 MG TABLET - HYDROCODONE 5 MG-ACETAMINOPHEN 325 MG TABLET - HYDROCODONE 5 MG-ACETAMINOPHEN 325 MG TABLET 3. Bilateral leg pain - ICD9: 729.5, ICD10: M79.604, M79.605 rx refilled, helping with ADLs and IADLs, he is taking as prescribed - HYDROCODONE 5 MG-ACETAMINOPHEN 325 MG TABLET - HYDROCODONE 5 MG-ACETAMINOPHEN 325 MG TABLET - HYDROCODONE 5 MG-ACETAMINOPHEN 325 MG TABLET 4. Attention deficit disorder, unspecified hyperactivity presence - ICD9: 314.00, ICD10: F98.8 vrx refilled, helping with ADLs and IADLs, he is taking as prescribed - DEXTROAMPHETAMINE-AMPHETAMINE ER 30 MG 24HR CAPSULE,EXTEND RELEASE - DEXTROAMPHETAMINE-AMPHETAMINE ER 30 MG 24HR CAPSULE,EXTEND RELEASE - DEXTROAMPHETAMINE-AMPHETAMINE ER 30 MG 24HR CAPSULE,EXTEND RELEASE - DEXTROAMPHETAMINE-AMPHETAMINE 10 MG TABLET - DEXTROAMPHETAMINE-AMPHETAMINE 10 MG TABLET - DEXTROAMPHETAMINE-AMPHETAMINE 10 MG TABLET 5. Attention deficit disorder, unspecified hyperactivity presence - ICD9: 314.00, ICD10: F98.8 rx refilled, helping with ADLs and IADLs, he is taking as prescribed - DEXTROAMPHETAMINE-AMPHETAMINE ER 30 MG 24HR CAPSULE,EXTEND RELEASE - DEXTROAMPHETAMINE-AMPHETAMINE ER 30 MG 24HR CAPSULE,EXTEND RELEASE - DEXTROAMPHETAMINE-AMPHETAMINE 10 MG TABLET - DEXTROAMPHETAMINE-AMPHETAMINE 10 MG TABLET - DEXTROAMPHETAMINE-AMPHETAMINE 10 MG TABLET 6. Fatigue, unspecified type - ICD9: 780.79, ICD10: R53.83 - TSH BLD - T4 FREE/FREE THYROX - T3 FREE BLD 7. Vitamin B12 deficiency - ICD9: 266.2, ICD10: E53.8 Recheck labs, continue vitamin b12 injections - VITAMIN B12 BLOOD 8. 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 Vitamin D deficiency - ICD9: 268.9, ICD10: E55.9 Continue supplement - VITAMIN D 25 HYDROXY 10. ED (erectile dysfunction) of organic origin - ICD9: 607.84, ICD10: N52.9 rx prn use, no SE with medication in the past - SILDENAFIL 100 MG TABLET 11. Foot pain, bilateral - ICD9: 729.5, ICD10: M79.671, M79.672 Xray as ordered, ? Due to MS or due to other changes such as tendinitis or OA - XR FOOT GENERAL 3V AP/LAT/OBL BILATERAL Noman L Dean, DO Return if no improvement. Follow up with Noman Dean DO. To ER if develops chest pain, shortness of breath, . Discussed risks, benefits, alternatives, and potential side effects of medications. Patient/Guardian expressed understanding and agreed with the plan. See patient instructions. Noman Dean DO [address] [place] [address] documented in this encounter [facility] 01-30-2024 History of Present illness Narrative [facility] [...] laboratory parameters, disease state markers and outcomes. Propellant Charge Loader Assessment Patient confirmed: Yes Med/dose confirmed: Yes Supplies needed: No supplies needed Missed doses: No Estimated days supply on hand: 5 Copay amount: 0 Payment confirmed: Yes Delivery method: FedEx Signature required: Waived on patient request Delivery address: [address] [place] [address], [id number] Delivery date: 02/03/24 Questions or concerns for the pharmacist?: No [facility] Visit Assessment - Hematology/Oncology: Assessment [...] toxicity Belle Qureshi documented in this encounter [facility] 01-14-2024 Miscellaneous Notes Source : mychart from patient requesting refill. Delivery : e-script Requested Prescriptions Pending Prescriptions Disp Refills gabapentin (NEURONTIN) 600 mg tablet 90 tablet 1 Sig: Take 1 tablet by mouth three times a day for 90 days. DX : Patient last seen 04/15/2022 Next Appointment : none Jana Contreras documented in this encounter [facility] 01-14-2024 Miscellaneous Notes Patient has been identified by name and date of : Yes, Provider Dean Date 01/14/24 Time 12:39 pm Patient phones for refill(s): Requested Prescriptions Pending Prescriptions Disp Refills albuterol HFA (VENTOLIN HFA) 90 mcg/actuation inhaler 18 g 11 Sig: INHALE 2 PUFFS INSTRUCTED EVERY FOUR HOURS NEEDED FOR WHEEZING / SHORTNESS OF BREATH Date of last office visit in primary care: 11/05/2023 Date of next office visit in primary care: 02/04/2024 Please advise. Thank you. Mary Vazquez Ma. documented in this encounter [facility] 01-12-2024 History and physi darien note Note Date/Time January 12, 2024 7:00am [facility] Medical Records Department [address] [place] [address] History & Physical Exam 01/12/24 0659 MR#: [id number] Acct: [id number] Name: OTONIEL VICTORIA Rep #:[id number] : 1970 53 From: Charly Friend DO PCP: Dr. Noman Dean, DO Status:[facility] Location: [place] [address] History and Physical Date of Admission: 01/12/24 53 M who presents to the office today for Pulmonary OV noting dysphagia. [facility] workup: ? EGD [facility] 1. duodenal inflammation with erosions, friability and granularity; gastric ulcerations with severe inflammation. ? EGD [facility] 3. gastric ulcerations. ? EGD [facility] 6..21 gastritis. ? EGD [facility] 08.13.22 without visual abnormality. *BGI established 03.25.23 with history as above. Contact 05.14.23 start Linzess 72mcg. 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 Biochemical AMA, ASM, hepatitis without pertinent abnormality. RAST seafood H; low: scallop and shrimp. IgG L502; BRANDT lambda light chain specificity, unable to determine MSpike; pANCA H1:20; dbl Strand DNA H11 Contact 05.23.23 with bloodwork results; he is established with [facility] oncology services for leukemia. Results forwarded to Dr. Heaton. OV 7.02.20 increase Linzess to 290mcg. Reports he is able to take PPI with cancertreatment (there has been some confusion regarding PPI use with cancer treatment) OV 11.30.23 PO intake causes upset stomach with burning/bloating. Cancer treatment has changed from Sprycel to Scemblix; he is currently taking omeprazole 40mg QD and Linzess 290mcg. BM every couple of days with complete evacuation and no difficulty with movement. ROS Const Constitutional: No anorexia, fatigue, fever(s), weight change or sleep problems Eyes Eyes: No change in vision ENT ENT: No abnormal hearing, difficulty swallowing, mouth lesions, tongue swelling or throat swelling Resp Respiratory: No cough or shortness of breath Cardio Cardiology: No chest pain at rest, chest pain with exertion, shortness of breathor dyspnea on exertion Gastro GI: No difficulty swallowing Genitourinary Male: No difficulty urinating or burning urination Musc Musculoskeletal: No joint pain, joint swelling, muscle weakness or decreased muscle mass Skin Skin: No hair loss in leg, yellowing of the eye, itchy eyes, rash, skin ulcer orskin swelling Neuro Neurology: No abnormal hearing, abnormal movements, confusion, unsteady gait/balance or memory loss Psych Psychiatric: No anxiety, No confusion and No memory loss Endo Endocrine: No fatigue or weight change Aller/Imm Allergy/Immunologic: No itchy eyes, throat swelling or tongue swelling Troy/Lymp Hematologic/Lymphatic: No easy bleeding, easy bruising or enlarged lymph nodes Exam Const General: cooperative, healthy appearing and comfortable Nutritional Appearance: average body habitus Orientation: alert, awake and oriented x3 Eyes Sclera: sclerae normal Resp Effort & Inspection: normal respiratory effort GI Inspection: normal to inspection Palpation: soft, no hepatosplenomegaly, no masses and tender in the RUQ Neuro Gait: normal gait Psych Mood: congruent mood Quality Reporting Tobacco Screening ([facility] 138) Smoking Status: Current every day smoker Assessment and Plan Assessment and Plan (1) Epigastric abdominal pain: Status: Chronic Plan: 52 yr old male with 5 mos of oropharyngeal/upper esophageal dysphagia and several years of upper abd discomfort/nausea. He underwent an upper endoscopy and was discovered to have multiple ulcers in his gastric antrum with bleeding stigmata. He states his last upper endoscopy was clear and he did not have any gastric ulcers. He is on PPI therapy and he is also taken a lot of Maalox due to abdominal pain. He is still on his medical regimen for chronic myelocytic leukemia. He does nottake any nonsteroidals. He has no history of H. pylori and it was negative on the biopsies from the ulcers in his stomach. He has no history of bile reflux gastritis. His gastrin level was drawn and it was not elevated. I suspected that he is having recurrent gastric ulcer secondary to medications. Most likelymedication could be his medicine for CML. Also on the differential diagnosis for his abdominal pain does include gastroparesis. He will undergo gastric emptying study. Pending study we may need to repeat his upper endoscopy. (2) Dysphagia: Status: Chronic Qualifiers: Dysphagia type: oropharyngeal phase Qualified Code(s): R13.12 - Dysphagia, oropharyngeal phase (3) Chronic constipation: Status: Chronic I have examined the patient and the H&P has been reviewed. There are no clinicalchanges since date of exam. 01/12/24 0700 <Electronically signed by Charly Parada DO> Cosigner Signature (if applicable): CC: Dr. Noman Dean DO; Charly Parada DO~ Signed [facility] Work Phone: [phone] 513-177502-12-2024 Procedure [facility] 01-12-2024 Procedure [facility]02-12-2024 [facility] Medical Records Department [address] [place] [address] History Physical Exam 01/12/24 0659 MR#: [id number] Acct: [id number] Name: OTONIEL VICTORIA Rep #: [id number] : 1970 53 From: Charly Parada DO PCP: Dr. Noman Dean DO Status:[facility] Location: [place] [address] History and Physical Date of Admission: 01/12/24 53 M who presents to the office today for Pulmonary OV noting dysphagia. [facility] workup: ? EGD [facility] 12.26. duodenal inflammation with erosions, friability and granularity; gastric ulcerations with severe inflammation. ? EGD [facility] 02.15.21 gastric ulcerations. ? EGD [facility] 05.01.21 gastritis. ? EGD [facility] 08.13.22 without visual abnormality. *BGI established 03.25.23 with history as above. Contact 05.14.23 start Linzess 72mcg. 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 Biochemical AMA, ASM, hepatitis without pertinent abnormality. RAST seafood H; low: scallop and shrimp. IgG L502; BRANDT lambda light chain specificity, unable to determine MSpike; pANCA H1:20; dbl Strand DNA H11 Contact 05.23.23 with bloodwork results; he is established with [facility] for leukemia. Results forwarded to Dr. Heaton. OV 7.02.20 increase Linzess to 290mcg. Reports he is able to take PPI with cancer treatment (there has been some confusion regarding PPI use with cancer treatment) OV 10.30.23 PO intake causes upset stomach with burning/bloating. Cancer treatment has changed from Sprycel to Scemblix; he is currently taking omeprazole 40mg QD and Linzess 290mcg. BM every couple of days with complete evacuation and no difficulty with movement. ROS Const Constitutional: No anorexia, fatigue, fever(s), weight change or sleep problems Eyes Eyes: No change in vision ENT ENT: No abnormal hearing, difficulty swallowing, mouth lesions, tongue swelling or throat swelling Resp Respiratory: No cough or shortness of breath Cardio Cardiology: No chest pain at rest, chest pain with exertion, shortness of breath or dyspnea on exertion Gastro GI: No difficulty swallowing Genitourinary Male: No difficulty urinating or burning urination Musc Musculoskeletal: No joint pain, joint swelling, muscle weakness or decreased muscle mass Skin Skin: No hair loss in leg, yellowing of the eye, itchy eyes, rash, skin ulcer or skin swelling Neuro Neurology: No abnormal hearing, abnormal movements, confusion, unsteady gait/balance or memory loss Psych Psychiatric: No anxiety, No confusion and No memory loss Endo Endocrine: No fatigue or weight change Aller/Imm Allergy/Immunologic: No itchy eyes, throat swelling or tongue swelling Troy/Lymp Hematologic/Lymphatic: No easy bleeding, easy bruising or enlarged lymph nodes Exam Const General: cooperative, healthy appearing and comfortable Nutritional Appearance: average body habitus Orientation: alert, awake and oriented x3 Eyes Sclera: sclerae normal Resp Effort Inspection: normal respiratory effort GI Inspection: normal to inspection Palpation: soft, no hepatosplenomegaly, no masses and tender in the RUQ Neuro Gait: normal gait Psych Mood: congruent mood Quality Reporting Tobacco Screening ([facility] 138) Smoking Status: Current every day smoker Assessment and Plan Assessment and Plan (1) Epigastric abdominal pain: Status: Chronic Plan: 52 yr old male with 5 mos of oropharyngeal/upper esophageal dysphagia and several years of upper abd discomfort/nausea. He underwent an upper endoscopy and was discovered to have multiple ulcers in his gastric antrum with bleeding stigmata. He states his last upper endoscopy was clear and he did not have any gastric ulcers. He is on PPI therapy and he is also taken a lot of Maalox due to abdominal pain. He is still on his medical regimen for chronic myelocytic leukemia. He does not take any nonsteroidals. He has no history of H. pylori and it was negative on the biopsies from the ulcers in his stomach. He has no history of bile reflux gastritis. His gastrin level was drawn and it was not elevated. I suspected that he is having recurrent gastric ulcer secondary to medications. Most likely medication could be his medicine for CML. Also on the differential diagnosis for his abdominal pain does include gastroparesis. He will undergo gastric emptying study. Pending study we may need to repeat his upper endoscopy. (2) Dysphagia: Status: Chronic Qualifiers: Dysphagia type: oropharyn (more content not included)...[facility]02-02-2024 History of Present illness Narrative* Staci Moore - 01/02/2024 11:37 AM EST [facility] Refill Assessment Medication(s): Scemblix Patient's [...] progressing towards achieving therapeutic goals based on medication- specific laboratory parameters, disease state markers and outcomes. Propellant Charge Loader Assessment Patient confirmed: Yes Med/dose confirmed: Yes Supplies needed: No supplies needed Missed doses: No Estimated days supply on hand: 8 Copay amount: 0 Payment confirmed: Yes Delivery method: FedEx Signature required: Waived on patient request Delivery address: [address] [place] [address] Delivery date: 01/06/24 Questions or concerns for the pharmacist?: No [facility] Visit Assessment - Hematology/Oncology: Assessment [...] or toxicity Staci Moore [facility] Miscellaneous Notes* Telephone Encounter - Jodee Plata MA - 11/13/2023 11:19 AM EST Patient active MyChart. Patient notified via [employer] message. Jodee Plata MA * Telephone Encounter - Vashti Jiménez LPN - 11/13/2023 9:53 AM EST Left message to return call. * Telephone Encounter - Noman Dean DO - 11/12/2023 10:47 PM EST Please inform patient that his 2 nevi [...] melanocytic dysplasia and melanoderma. [facility] History of Present illness Narrative* Noman Dean DO - 11/05/2023 10:39 AM EST CC: Otoniel Victoria is a 53 year old male who presents to the office for mole removal HPI: Here for mole removal in the office today. Has been found to have some atypical nevi at recent lastOFFICE VISIT. He is on immune modulator medication for his monoclonal disorder per Oncologist. Otherwise no sun exposure. Vitamin b12 deficiency, he is willing to start injections, willing for to give these to him athome since she has done this before with his MS medication. PAST MEDICAL HISTORY Diagnosis Date ADHD (attention deficit hyperactivity disorder) Arrhythmia Arthritis Bipolar 1 disorder ([facility]) Dr. Easley [facility] Chronic obstructive pulmonary disease ([facility]) 04/19/2019 Chronic obstructive pulmonary disease ([facility]) CML (chronic myeloid leukemia) ([facility]) 02/13/2015 Dr. 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 Vasquez Neurologist Multiple sclerosis ([facility]) 10/2005 Dr. Mauricio Vasquez Neurologist Osteoarthritis of left knee 01/2022 Other symptoms involving abdomen and pelvis(789.9) Palpitations Schizophrenia ([facility]) Dr. Easley [facility] Snoring Substance abuse rule out 03/15/2015 [...] Take 1 capsule by mouth once daily for30 days. Do not start before October 27, [...] XR) 30 mg capsule Take 1 capsule bymouth once daily for 30 days. Do not [...] inhaler INHALE 2 PUFFS INSTRUCTED EVERY FOUR HOURSAS NEEDED FOR WHEEZING / SHORTNESS OF BREATH [...] level of L1 laterally INFORMED CONSENT Otoniel Victoria Medical Record: [id number] Date: 11/05/2023 Procedure: shave biopsy atypical nevus [...] I verify that I personally obtained Otoniel Victroia's consent. Noman Dean DO Dept of [facility] Risks, benefits, and alternatives discussed. Informed consent [...] plan. See patient instructions. Noman Dean DO [address] [place] [address] [facility] Instructions* Patient Instructions* Noman Dean DO - 11/05/2023 10:38 AM EST Change dressing at 2 mole removal sites, once a day, apply Vaseline or Aquafor ointment and a bandaid Start vitamin B12 injections at home, let me know if any concerns. Can use in thigh,buttock or arm [facility] History of Present illness Narrative* Belle Qureshi - 11/05/2023 10:00 AM EST [facility] Ref[facility] Assessment Medication(s): Scemblix 40mg [...] progressing towards achieving therapeutic goals based on medication- specific laboratory parameters, disease state markers and outcomes. Propellant Charge Loader Assessment Patient confirmed: Yes Med/dose confirmed: Yes Supplies needed: No supplies needed Missed doses: No Estimated days supply on hand: 6 Copay amount: 0 Payment confirmed: Yes Delivery method: FedEx Signature required: Waived on patient request Delivery address: [address] [place] [address] [place], [address] Delivery date: 11/10/23 Questions or concerns for the pharmacist?: No [facility] Visit Assessment - Hematology/Oncology: Assessment [...] or toxicity Belle Qureshi [facility] History of Present illness Narrative* Bairon Hale - 10/13/2023 9:40 AM EST [facility] Refill Assessment Medication(s): scemblix Patient's [...] progressing towards achieving therapeutic goals based on medication- specific laboratory parameters, disease state markers and outcomes. Propellant Charge Loader Assessment Patient confirmed: Yes Med/dose confirmed: Yes Supplies needed: No supplies needed Missed doses: No Estimated days supply on hand: 5 Copay amount: 0 Payment confirmed: Yes Delivery method: FedEx Signature required: Waived on patient request Delivery address: [address] [place] [address] [place] [address] Delivery date: 10/15/23 Questions or concerns for the pharmacist?: No [facility] Visit Assessment - Hematology/Oncology: Assessment [...] Treatment Duration: Until progression or toxicity Bairon Hale documented in this encounterZanesville City Hospital10-27-2023 Miscellaneous Notes* Telephone Encounter - Lucinda Meier RN - 09/26/2023 4:15 PM EDT Called pt and notified RX were sent to the pharmacy. * Telephone Encounter - Maria Dolores Randall APRN.CNP - 09/26/2023 3:29 PM EDT PDMP website checked and validated. All prescriptions have been APPROPRIATELY filled. No suspiciousactivity was identified. 09/26/2023 by Maria Dolores Randall APRN.LALO The following approved medication requests have been [...] 30 days. Authorizing Provider: MARIA DOLORES RANDALL APRN.TRIAL COURT JUSTICE * Telephone Encounter - Lucinda Meier RN - 09/23/2023 9:20 AM EDT Patient needs these meds by Friday. Patient has been identified by name and date of : Yes, Provider Dr. Dean Date 09/23/23 Time 0992 Patient phones for refill(s): Requested Prescriptions Pending [...] you. Lucinda Meier RN. documented in this encounterZanesville City Hospital10-20-2023 Miscellaneous Notes* Telephone Encounter - Harriett Youngblood LISW - 09/19/2023 3:55 PM EDT SOCIAL WORK FOLLOW UP NOTE: [facility] Date of service: Tuesday September 19, 2023 [facility] Project Consultant (SW) Harriett Youngblood attempted to contact Otoniel Victoria by phone to complete the distress assessment. [...] covering for JONH Sharma documented in this encounterZanesville City Hospital10-19-2023 History of Present illness Narrative* Otoniel Heaton DO - 09/18/2023 12:16 PM EDT Diagnosis: 1) CML chronic phase 2) MGUS HPI: The patient is a 53 yo male who has h/o MS (exacerbating/remitting type; previous medications for MS: Avonex (2005), IV Steroids (2005) and PO Steroids (taper was rough, IV no issues). Currentlyon Tecfidera (May 2013). Symptoms from MS had [...] SPEP. Bone marrow biopsy incidentally revealed CML: 46,XY,t(9;22)(q34;q11.2)[7]/46,XY[13] BCR/ABL1 transcripts detected, p210 (e13a2) isoform Peripheral [...] Tissues: No significant finding. Lower thorax: Unremarkable. Program Engineer (topogram) images: Unremarkable. Ultrasound right upper quadrant [...] and erythema in the entire stomach. Biopsies wereobtained. Normal lower third of the esophagus and [...] (98.3 F), weight 93.9 kg (207 lb), MaP749 %. Well-appearing and in no acute distress. EYES: Sclerae are anicteric bilaterally. LYMPHATIC: There is no palpable cervical or supraclavicular adenopathy. RESPIRATORY: Inspiratory breath sounds are of diminished intensity in all sotelo. No rales, wheezesor rhonchi. CARDIOVASCULAR: Rhythm is regular. ABDOMEN: The [...] the date of the service which included [id number] patient care, completing clinical documentation, obtaining and/or reviewing separately obtained history, performing a medically appropriate examination, counseling and educating the patient/family/caregiver, ordering medications, tests, or procedures, communicating with other HCPs (not separately reported), and communicating results to the patient/family/caregiver. Otoniel Heaton DO documented in this encounterZanesville City Hospital10-16-2023 Miscellaneous Notes* Telephone Encounter - Farzana Martin LPN - 09/15/2023 1:21 PM EDT Last OV: 06/26/23 - Next scheduled appt: [...] patient. Farzana Martin LPN documented in this [facility]09-25-2023 Miscellaneous Notes* Telephone Encounter - Mela Bailey - 08/25/2023 1:08 PM EDTSummary: APPOINTMENT LVM FOR PATIENT TO CALL SO WE CAN GET HIM SCHEDULED FOR A FOLLOW UP WITH MCKENNA GARCIA documented in this encounterZanesville City Hospital09-20-2023 Miscellaneous Notes* Telephone Encounter - Paola Catalan - 08/20/2023 3:27 PM EDT PT INFORMED, VERBALIZED UNDERSTANDING Paola Catalan * Telephone Encounter - Velvet Alcantar LPN - 08/20/2023 8:22 AM EDT Message left to return call * Telephone Encounter - Noman Dean DO - 08/20/2023 8:12 AM EDT Please inform patient that his vitamin D levels are too low. Needs to add at least 2000 international unit(s) a day of vitamin D3 with meals every day. Also his vitamin B12 is low normal. Would recommend vitamin B12 at least 1000- 2000 international unit(s) a day Noman Dean DO documented in this encounterZanesville City Hospital09-19-2023 History of Present illness Narrative* Oswaldo (Digital Composer), Sabrina - 08/19/2023 11:02 AM EDT [facility] Medication(s): Scemblix Patient's [...] progressing towards achieving therapeutic goals based on medication- specific laboratory parameters, disease state markers and outcomes. Propellant Charge Loader Assessment Patient confirmed: Yes Med/dose confirmed: Yes Supplies needed: No supplies needed Missed doses: No Estimated days supply on hand: 5 Copay amount: 0 Delivery method: FedEx Signature required: No Delivery address: [facility] [address], [facility] [address] Delivery date: 08/22/23 Questions or concerns for the pharmacist?: No [facility] Visit Assessment - Hematology/Oncology: Assessment [...] Duration: Until progression or toxicity Sabrina Chacon (Digital Composer) documented in this encounterZanesville City Hospital08-25-2023 Miscellaneous Notes* Telephone Encounter - Maria Dolores Randall APRN.CNP - 07/25/2023 2:55 PM EDT PDMP website checked and validated. All prescriptions have been APPROPRIATELY filled. No suspiciousactivity was identified. 07/25/2023 by Maria Dolores Randall [...] 30 days. Authorizing Provider: MARIA DOLORES RANDALL APRN.LALO * Telephone Encounter - Christina Verma LPN - 07/25/2023 12:45 PM EDT Patient has been identified by name and date of : Yes, Provider Dr. Dean Date 07/25/23 Time12:45 pm Patient phones for refill(s): Requested Prescriptions [...] you. Christina Verma LPN documented in this encounterZanesville City Hospital08-25-2023 Miscellaneous Notes* Telephone Encounter - Virginia Lieva LPN - 07/25/2023 11:41 AM EDT Message left on voicemail pt. Was a no show for labs this past Friday. Orders are in, he can go at his convenience and get labs drawn. Virginia Leiva LPN documented in this encounterZanesville City Hospital07-27-2023 Miscellaneous Notes* Addendum Note - Andrey Art APRN.CNP - 06/26/2023 3:33 PM EDTAddended by: ANDREY ART on: 06/26/2023 03:33 PM Modules accepted: Orders documented in this encounterZanesville City Hospital07-27-2023 Instructions* Patient Instructions* Andrey Art APRN.CNP - 06/26/2023 3:25 PM EDT Continue current medications Follow up in 3 months Schedule cardiac stress test documented in this encounterZanesville City Hospital07-27-2023 History of Present illness Narrative* Andrey Art APRN.CNP - 06/26/2023 3:14 PM EDT Chief Complaint Patient presents with: Follow Up HPI Otoniel Victoria is a 52 year old male who [...] hyperactivity disorder) Arrhythmia Arthritis Bipolar 1 disorder ([facility]) Dr. Easley [facility] Chronic obstructive pulmonary disease ([facility]) 04/19/2019 Chronic obstructive pulmonary disease ([facility]) CML (chronic myeloid leukemia) ([facility]) 02/13/2015 Dr. 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 Vasquez Neurologist Multiple sclerosis ([facility]) 10/2005 Dr. Mauricio Vasquez Neurologist Osteoarthritis of left knee 01/2022 Other symptoms involving abdomen and pelvis(789.9) Palpitations Schizophrenia ([facility]) Dr. Easley [facility] Snoring Substance abuse rule out 03/15/2015 [...] migraines Shellfish Derived Unknown Was told per DrArabella Friend needs an Epi pen for this [...] inhaler INHALE 2 PUFFS INSTRUCTED EVERY FOUR HOURSAS NEEDED FOR WHEEZING / SHORTNESS OF BREATH [...] appropriately, no suspicion of abuse. Andrey Art APRN.TRIAL COURT JUSTICE documented in this encounterZanesville City Hospital07-26-2023 Miscellaneous Notes* Telephone Encounter - Velvet Alcantar LPN - 06/25/2023 1:47 PM EDT Detailed message left on VM. * Telephone Encounter - Noman Dean DO - 06/25/2023 1:29 PM EDT Yes, the labs I ordered for him are stable Noman Dean DO * Telephone Encounter - Marivel Gamez RN - 06/25/2023 12:56 PM EDT Spoke with patient. Given message from provider's office. Patient verbalizes understanding. He is asking if the rest of his labs are okay? Marivel Gamez RN * Telephone Encounter - Huyen Evans RN - 06/25/2023 8:39 AM EDT TC patient, left message for patient to call back and speak with a triage nurse regarding results. Huyen Evans RN * Telephone Encounter - Noman Dean DO - 06/25/2023 7:08 AM EDT Please inform patient that his thyroid labs are stable Noman Dean DO documented in this encounterZanesville City Hospital07-18-2023 Miscellaneous Notes* Telephone Encounter - Otoniel Heaton DO - 06/17/2023 5:13 PM EDT The following approved medication requests have been transmitted electronically. Requested Prescriptions Signed Prescriptions Disp Refills omeprazole (PRILOSEC) 40 mg capsule 30 capsule 4 Sig: Take 1 capsule by mouth once daily. Authorizing Provider: OTONIEL HEATON DO * Telephone Encounter - Ros Ayala RN - 06/17/2023 5:09 PM EDT Patient informed that he should start omeprazole and he does not need to space out with asciminib. Patient stated understanding. Please refill omeprazole. Thank you. Ros Ayala RN * Telephone Encounter - Ros Ayala RN - 06/17/2023 4:38 PM EDT Patient informed of Dr. Heaton's response, stated [...] Patient informed he should restart omeprazole and suggestedto space out the 2 medications by 2 hours apart. Patient is requesting a refill. Ros Ayala RN * Telephone Encounter - Ros Ayala RN - 06/17/2023 9:13 AM EDT Called patient, there was no answer. A [...] lab work is needed. Ros Ayala RN * Telephone Encounter - Otoniel Heaton DO - 06/17/2023 8:00 AM EDT His calcium was a little high on yesterday's lab work. Please ask him to come for some additional lab work in order to determine if this is a spurious elevation or a real elevation. Otoniel Heaton DO documented in this encounterZanesville City Hospital07-03-2023 Miscellaneous Notes* Telephone Encounter - Edgar Longoria APRN.CNP - 06/02/2023 2:42 PM EDT The following approved medication requests have been transmitted electronically. Requested Prescriptions Signed Prescriptions Disp Refills HYDROcodone-acetaminophen (NORCO) 5-325 mg per tablet 60 tablet 0 Sig: Take 1 tablet by mouth twice daily as needed for pain for up to 30 days. Authorizing Provider: EDGAR LONGORIA APRN.CNP PDMP website checked and validated. All prescriptions have been APPROPRIATELY filled. No suspiciousactivity was identified. 06/02/2023 by Edgar Longoria CNP. * Telephone Encounter - Vashti Jiménez LPN - 06/02/2023 2:37 PM EDT Hiwot--03/28/23 Nov--06/27/23 Last refill--05/02/23 60 with 0 refill Last labs--03/17/23 * Telephone Encounter - Paty Abdalla RN - 06/02/2023 11:54 AM EDT Patient has been identified by name and [...] you. Paty Abdalla RN documented in this encounterZanesville City Hospital06-30-2023 Miscellaneous Notes* Telephone Encounter - Ros Ayala RN - 05/30/2023 4:11 PM EDT Patient started/will start taking asciminib on 06/03/2023. Patients last dose of sprycel will be 06/02/2023. Patient will follow-up as scheduled. This nurse will follow-up 7-10 days after patient starts medication. Ros Ayala RN * Telephone Encounter - Ros Ayala RN - 05/30/2023 3:18 PM EDT Patient is currently on sprycel but treatment is being changed to asciminib d/t gastric ulcers and needing a PPI. Patient will receive asciminib on Friday. Please advise when patient can stop sprycel and switch toasciminib. Please advise if any baseline labs are needed prior to starting. Patient is scheduled for CBC/CMP/PCR for BCR/ABL on 06/16/23 with an OV on 06/23/23. From [facility] notes: Lab/Monitoring: CBC every 2 weeks for the first 3 months and monthly thereafter or as clinically necessary serum lipase and amylase levels monthly or as clinically necessary Thank you. Ros Ayala RN * Telephone Encounter - Ros Ayala RN - 05/30/2023 3:16 PM EDT ORAL ANTI-CANCER AGENTS EDUCATION patient called today for oral medication education for asciminib for Chronic Myelogenous Leukemia (CML) READINESS TO LEARN Cognitive Ability: Alert and oriented Motivation to Learn: Interested Family Support: Unable to assess - Family not present Instruction Provided to: Patient Patient learns best by: Multiple Methods Factors affecting learning: None Physical limitation affecting learning: None JADE ASSESSMENT: 1.) Verified that patient knows that [...] of oral chemo agent:with water, at least onehour before or two hours after a meal. [...] minutes Ros Ayala RN documented in this encounterZanesville City Hospital06-28-2023 Miscellaneous Notes* Telephone Encounter - Edgar Longoria APRN.TRIAL COURT JUSTICE - 05/28/2023 9:41 PM EDT The following approved medication requests have been [...] All prescriptions have been APPROPRIATELY filled. No suspiciousactivity was identified. 05/28/2023 by Edgar Longoria CNP. * Telephone Encounter - Abeba Pettit RN - 05/27/2023 8:10 AM EDT Medication refill requested by Patient Please review [...] 06/27/2023 Abeba Pettit RN documented in this encounterZanesville City Hospital06-26-2023 Miscellaneous Notes* Telephone Encounter - Virginia Leiva LPN - 05/26/2023 12:48 PM EDT Pt. Returned call informed Dr.. Heaton received [...] will contact our office. Virginia Leiva LPN * Telephone Encounter - Fawn Fontenot LPN - 05/26/2023 10:17 AM EDT Left message for patient to contact office . Fawn Fontenot LPN * Telephone Encounter - Otoniel Heaton DO - 05/25/2023 3:15 PM EDT Let him know that I received the report of the EGD that Dr. Parada performed on 05/15. He had oozinggastric ulcers that were treated and diffuse inflammation in the duodenum. Since he is going to need proton pump inhibitor therapy for the foreseeable future, I recommend changing from Dasatinib to asciminib for the CML. Continue Dasatinib for now. New Rx sent to specialty pharmacy. Otoniel Heaton DO documented in this encounterZanesville City Hospital06-26-2023 History of Present illness Narrative* Belle Qureshi - 05/26/2023 11:15 AM EDT [facility] received prescription(s) for Scemblix from Dr. Heaton's office. Benefits investigation was conducted, indicating that a prior authorization is required by patient'sinsurance plan with [facility]. Encounter will be updated once prior authorization has been submitted by [facility]. Belle Qureshi CPhT [facility], Oncology P: / F: documented in this encounterZanesville City Hospital06-21-2023 History of Present illness Narrative* Belle Qureshi - 05/21/2023 9:55 AM EDT [facility] Ref[facility] Medication(s): Sprycel Patient's current [...] progressing towards achieving therapeutic goals based on medication- specific laboratory parameters, disease state markers and outcomes. Propellant Charge Loader Assessment Patient confirmed: Yes Med/dose confirmed: Yes Supplies needed: No supplies needed Missed doses: No Estimated days supply on hand: 7 Copay amount: 0 Payment confirmed: Yes Delivery method: FedEx Signature required: Waived on patient request Delivery address: [facility] [address], [place], [address] Delivery date: 05/23/23 Questions or concerns for the pharmacist?: No [facility] Visit Assessment - Hematology/Oncology: Assessment [...] or toxicity Belle Qureshi documented in this encounterZanesville City Hospital06-15-2023 Procedure [facility]06-15-2023 Procedure [facility]06-02-2023 Miscellaneous Notes* Telephone Encounter - Noman Dean DO - 05/02/2023 7:39 AM EDT PDMP website checked and validated. All prescriptions have been APPROPRIATELY filled. No suspiciousactivity was identified. 05/02/2023 by Noman Dean DO The following approved medication requests have been transmitted electronically. Requested Prescriptions Signed Prescriptions Disp Refills HYDROcodone-acetaminophen (NORCO) 5-325 mg per tablet 60 tablet 0 Sig: Take 1 tablet by mouth twice daily as needed for pain for up to 30 days. Authorizing Provider: NOMAN DEAN DO * Telephone Encounter - Abeba Pettit RN - 05/01/2023 2:44 PM EDT Medication refill requested by Patient Please review [...] inhaler INHALE 2 PUFFS INSTRUCTED EVERY FOUR HOURSAS NEEDED FOR WHEEZING / SHORTNESS OF BREATH [...] 40 mg by mouth once daily. Abeba Pettit RN documented in this encounterZanesville City Hospital05-03-2023 Miscellaneous Notes* Telephone Encounter - CROW Saenz - 04/02/2023 1:17 PM EDT Source : mychart from patient requesting refill. Delivery : e-script Requested Prescriptions Pending Prescriptions Disp Refills gabapentin (NEURONTIN) 600 mg tablet 90 tablet 1 Sig: Take 1 tablet by mouth three times daily for 60 days. DX : Patient last seen 04/15/2022 Next Appointment : CROW Saenz documented in this encounterZanesville City Hospital05-03-2023 Miscellaneous Notes* Telephone Encounter - Sana Leo RN - 04/02/2023 9:15 AM EDT Signed release of records received. All requested medical records faxed to office. Fax confirmation sheet received. Sana Leo RN documented in this encounterZanesville City Hospital04-28-2023 Instructions* Patient Instructions* Noman Dean DO - 03/28/2023 9:28 AM EDT Fasting labs in [address] Heaton's labs drawn before our appt documented in this encounterZanesville City Hospital04-28-2023 History of Present illness Narrative* Noman Dean, DO - 03/28/2023 9:22 AM EDT CC: Otoniel Victoria is a 52 year old male who presents to the office for follow up HPI: ADHD, taking adderall XR in the morning. Sometimes feels his symptoms aren't well enough controlledin the afternoon/evening. Wondering if dose adjustment can be made. Denies any SE from medication. Chronic b/l leg pain and MS, taking [place] as prescribed, tolerating well. Helps with ADLs and IADLswith dressing, bathing, gait, daily functioning. No new SE with medication Has upcoming upper endoscopy scope on 06/04/[address] Parada Gastroenterology office for his chronic acid reflux and abdominal symptoms. Depression, anxiety, bipolar, stable, seeing Psychiatrist. PAST MEDICAL HISTORY Diagnosis Date ADHD (attention deficit hyperactivity disorder) Arrhythmia Arthritis Bipolar 1 disorder ([facility]) Dr. Easley [facility] Chronic obstructive pulmonary disease ([facility]) 04/19/2019 Chronic obstructive pulmonary disease ([facility]) CML (chronic myeloid leukemia) ([facility]) 02/13/2015 Dr. 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 Vasquez Neurologist Multiple sclerosis ([facility]) 10/2005 Dr. Mauricio Vasquez Neurologist Osteoarthritis of left knee 01/2022 Other symptoms involving abdomen and pelvis(789.9) Palpitations Schizophrenia ([facility]) Dr. Easley [facility] Snoring Substance abuse rule out 03/15/2015 [...] inhaler INHALE 2 PUFFS INSTRUCTED EVERY FOUR HOURSAS NEEDED FOR WHEEZING / SHORTNESS OF BREATH [...] nares without drainage, pharynx without erythema, exudate, lesions,or drainage. Uvula midline. Neck: No LAD, no [...] MG TABLET 10. PAD (peripheral artery disease) (HCC) - ICD9: 443.9, ICD10: I73.9 - f/u with specialist 11. Immunocompromised state (HCC) - ICD9: 279.9, ICD10: D84.9 See above 12. Other schizophrenia (HCC) - ICD9: 295.80, ICD10: F20.89 F/u with Psychiatrist for mgmt of symptoms and medications Noman Dean DO PDMP website checked and validated. All prescriptions have been APPROPRIATELY filled. No suspiciousactivity was identified. 03/28/2023 by Noman Dean DO Return if no improvement. Follow up with Noman Dean DO. To ER if develops chest pain, shortness of breath Discussed risks, benefits, alternatives, and potential side effects of medications. Patient/Guardian expressed understanding and agreed with the plan. See patient instructions. Noman Dean DO [address] [place] [address] documented in this encounterZanesville City Hospital04-26-2023 History of Present illness Narrative* Marcia Lezama - 03/26/2023 12:02 PM EDT [facility] Medication(s): Sprycel Patient's [...] progressing towards achieving therapeutic goals based on medication- specific laboratory parameters, disease state markers and outcomes. Propellant Charge Loader Assessment Patient confirmed: Yes Med/dose confirmed: Yes Supplies needed: No supplies needed Missed doses: No Estimated days supply on hand: 5 Copay amount: 0 Copay form of payment: Credit card on file Payment confirmed: Yes Delivery method: FedEx Signature required: No Delivery address: [address] [place] [address] [place] [address] Delivery date: 03/28/23 Questions or concerns for the pharmacist?: No [facility] Visit Assessment - Hematology/Oncology: Assessment to use: Refill Vaccination Assessment: Date of influenza vaccination reminder: 08/02/2022 Date of most recent vaccination assessment: 08/02/2022 Treatment Plan Information: Treatment Plan Information: 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 Treatment HX: Imatinib started 2/5/15 Current Therapy Sprycel 80mg ( SE BEARD [...] or toxicity Marcia Lezama documented in this encounterZanesville City Hospital04-24-2023 History of Past illness Narrative* Problem Noted Date Diagnosed Date Resolved Date Immunocompromised state 03/24/202303/01 COPD with chronic bronchitis 03/31/2019 01/18/2022 Screen for colon cancer 08/05/201801/01 Overview: Added automatically from request for surgery [id number] Chronic GERD 02/07/2016 02/07/2016 Special screening for [...] as of this encounter (statuses as of 03/12/2024) [facility] of Past illness Narrative* Problem Noted Date Diagnosed Date Resolved Date Immunocompromised state 03/24/202303/01 COPD with chronic bronchitis 03/31/2019 01/18/2022 Screen for colon cancer 08/05/201801/01 Overview: Added automatically from request for surgery [id number] Chronic GERD 02/07/2016 02/07/2016 Special screening for [...] as of this encounter (statuses as of 03/15/2024) [facility] History of Present illness Narrative* Otoniel Heaton, - 03/24/2023 10:10 AM EDT Diagnosis: 1) CML chronic phase 2) MGUS HPI: The patient is a 52 yo male who has h/o MS (exacerbating/remitting type; previous medications for MS: Avonex (2005), IV Steroids (2005) and PO Steroids (taper was rough, IV no issues). Currentlyon Tecfidera (May 2013). Symptoms from MS had [...] SPEP. Bone marrow biopsy incidentally revealed CML: 46,XY,t(9;22)(q34;q11.2)[7]/46,XY[13] BCR/ABL1 transcripts detected, p210 (e13a2) isoform Peripheral [...] Tissues: No significant finding. Lower thorax: Unremarkable. Program Engineer (topogram) images: Unremarkable. Ultrasound right upper quadrant [...] and erythema in the entire stomach. Biopsies wereobtained. Normal lower third of the esophagus and [...] contributing to abdominal pain. Changed neurologists to [place]. MS symptoms flaring. Tolerating Sprycel well with [...] 111/69, pulse 67, height 183.3 cm (6' 0.18), weight 90.5 kg (199 lb 8 oz), SpO2 99 %. Well-appearing and in no acute distress. EYES: Sclerae are anicteric bilaterally. NECK: Supple. LYMPHATIC: There is no palpable cervical or supraclavicular adenopathy. RESPIRATORY: Inspiratory breath sounds are of diminished intensity in all sotelo. No rales, wheezesor rhonchi. CARDIOVASCULAR: Rhythm is regular. ABDOMEN: The abdomen is nondistended. No organomegaly. No tenderness. Extremities: No swelling or edema. SKIN: No jaundice or rash currently. NEUROLOGIC: pattern painter II-XII are grossly intact. No focal motor [...] Lymph 1.00 - 4.00 k/uL 3.80 2.47 Ashe% % 9.7 10.2 Abs Ashe <0.87 k/uL 0.79 0.81 Eosin% % 1.7 [...] which included preparing to see the patient, [id number] patient care, completing clinical documentation, obtaining and/or reviewing separately obtained history, performing a medically appropriate examination, counseling and educating the pat ient/family/caregiver, ordering medications, tests, or procedures, independently interpreting results (not separately reported), and communicating results to the patient/family/caregiver. Otoniel Heaton DO documented in this encounterZanesville City Hospital04-18-2023 History of Present illness Narrative* Mary Sandhu RT(R) - 03/18/2023 9:20 AM EDT Radiology Service Progress Note DATE OF SERVICE: [...] Sclerosis SIGNATURE: RT Arie(R) PATIENT NAME: Otoniel Victoria DATE: March 18, 2023 TIME: 9:41 AM documented in this encounterZanesville City Hospital04-17-2023 History of Present illness Narrative* Jammie Vicente RN - 03/17/2023 7:59 AM EDT EKG complete and transmitted. documented in this encounterZanesville City Hospital04-06-2023 Miscellaneous Notes* Telephone Encounter - Vashti Jiménez LPN - 03/06/2023 9:11 AM EDT Hiwot--12/31/22 Nov--03/28/23 Last refill--09/09/22 30 with 5 refills Last labs--12/16/22 documented in this encounterZanesville City Hospital03-27-2023 Miscellaneous Notes* Telephone Encounter - Edgar Longoria APRN.CNP - 02/24/2023 4:34 PM EDT The following approved medication requests have been [...] All prescriptions have been APPROPRIATELY filled. No suspiciousactivity was identified. 02/24/2023 by Edgar Longoria CNP. * Telephone Encounter - Farzana Martin LPN - 02/24/2023 12:17 PM EDT Pt reports he called [facility] to make sure they had Adderall in [...] patient. Farzana Martin LPN documented in this encounterZanesville City Hospital03-03-2023 Miscellaneous Notes* Telephone Encounter - Edgar Longoria APRN.CNP - 01/31/2023 11:01 AM EST The following approved medication requests have been transmitted electronically. Requested Prescriptions Signed Prescriptions Disp Refills HYDROcodone-acetaminophen (NORCO) 5-325 mg per tablet 60 tablet 0 Sig: Take 1 tablet by mouth twice daily as needed for pain for up to 30 days. Authorizing Provider: EDGAR LONGORIA APRN.CNP PDMP website checked and validated. All prescriptions have been APPROPRIATELY filled. No suspiciousactivity was identified. 01/31/2023 by Edgar Longoria CNP. * Telephone Encounter - Sally Jose VARGAS - 01/30/2023 10:12 AM EST Patient has been identified by name and [...] you. Sally Garcia LPN documented in this encounterZanesville City Hospital02-10-2023 Miscellaneous Notes* Telephone Encounter - Radha June Ma - 01/10/2023 3:11 PM EST Patient phones requesting refills as follows: Requested Prescriptions Pending Prescriptions Disp Refills omeprazole (PRILOSEC) 40 mg capsule 30 capsule 4 Sig: Take 1 capsule by mouth once daily. Please review and advise. Radha June Ma documented in this encounterZanesville City Hospital02-07-2023 History of Present illness Narrative* Miriam Arboleda, OD - 01/07/2023 2:54 PM EST 1. Meibomian gland dysfunction (MGD) of upper and lower lids of both eyes Continue warm compresses 1-2x daily Use Systane twice daily 2. Myopia, bilateral 3. Presbyopia Finalized spec rx- patient was currently over minused Follow-up as needed or in 6 months for complete Miriam Arboleda, VITOR January 07, 2023 2:54 PM documented in this encounterZanesville City Hospital02-07-2023 Miscellaneous Notes* Telephone Encounter - Farzana Martin LPN - 01/07/2023 8:40 AM EST Pt notified of results and provider message. Farzana Martin LPN * Telephone Encounter - Noman Dean DO - 01/07/2023 7:35 AM EST Please inform patient that all 4 moles removed showed each to be an atypical nevus with mild dysplasia. No further intervention needed. Noman Dean DO documented in this encounterZanesville City Hospital02-03-2023 History of Present illness Narrative* LEA Dalal - 01/03/2023 1:42 PM EST PULM FUNCTION SMARTBLOCK: Provider: Harriett Gregorio PA-C Assisting Tech: LEA Dalal Spirometry: 1 DLCO: 1 LV - Box: 1 documented in this encounterZanesville City Hospital02-03-2023 History of Present illness Narrative* Claudia Costa - 01/03/2023 10:06 AM EST [facility] Refill Assessment Medication(s): Sprycel No [...] progressing towards achieving therapeutic goals based on medication- specific laboratory parameters, disease state markers and outcomes. Eleanor Brown PharmD Clinical Pharmacist, Oncology [facility] P: , F: Pool: P [facility] ON[facility] Pool #: [id number] Propellant Charge Loader Assessment Patient confirmed: Yes Med/dose confirmed: Yes Missed doses: No Estimated days supply on hand: 5 Next cycle/dose due: 01/04/23 Copay amount: 0 Delivery method: FedEx Signature required: No Delivery address: [address] [place] [address] [place] [address] Delivery date: 01/06/23 Questions or concerns for the pharmacist?: No [facility] Visit Assessment - Hematology/Oncology: Ivent [...] progression: Yes Scheduled future appointments: Yes Claudia Bokal, [facility] P: [phone] F: [phone] documented in this encounterZanesville City Hospital02-01-2023 Miscellaneous Notes* Telephone Encounter - Samjayant Leo - 01/01/2023 8:15 AM ESTSummary: appointment lvm for patient to call so we can get him scheduled for his mri and a follow up with jose documented in this encounterZanesville City Hospital01-31-2023 History of Present illness Narrative* Noman Dean DO - 12/31/2022 9:27 AM EST CC: Otoniel Victoria is a 52 year old male who presents to the office for mole removal and follow up HPI: He is here for mole removal x 4 on his back that were noticed at his last OFFICE VISIT, hx of atypical nevi in the past with dysplasia, no history of melanoma, has been on medication for his Multiplesclerosis and has history of sun exposure. ADHD, taking adderall XR in the morning. Sometimes feels his symptoms aren't well enough controlledin the afternoon/evening. Wondering if dose adjustment can be made. Denies any SE from medication. Chronic b/l leg pain and MS, taking Saint Augustine as prescribed, tolerating well. Helps with ADLs and IADLswith dressing, bathing, gait, daily functioning. No new SE with medication PAST MEDICAL HISTORY Diagnosis Date ADHD (attention deficit hyperactivity disorder) Arrhythmia Arthritis Bipolar 1 disorder ([facility]) Dr. Easley [facility] Chronic obstructive pulmonary disease ([facility]) 04/19/2019 Chronic obstructive pulmonary disease ([facility]) CML (chronic myeloid leukemia) ([facility]) 02/13/2015 Dr. 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 Vasquez Neurologist Multiple sclerosis ([facility]) 10/2005 Dr. Mauricio Vasquez Neurologist [...] inhaler INHALE 2 PUFFS INSTRUCTED EVERY FOUR HOURSAS NEEDED FOR WHEEZING / SHORTNESS OF BREATH [...] nares without drainage, pharynx without erythema, exudate, lesions,or drainage. Uvula midline. Neck: No LAD, no [...] size with irregular border INFORMED CONSENT Otoniel Victoria Medical Record: [id number] Date: 12/31/2022 Procedure:shave biopsy x 4 atypical nevi The risks, benefits and anticipated outcomes of the procedure, the risks and benefits of the alternatives to the procedure and the roles and tasks of the personnel to be involved were discussed with the patient and the patient consents to the procedure and agrees to proceed. I verify that I personally obtained Otoniel Victoria's consent. Noman Dean DO Dept of [facility] [place] Risks, benefits, and alternatives discussed. Informed consent [...] All prescriptions have been APPROPRIATELY filled. No suspiciousactivity was identified. 12/31/2022 by Noman Dean DO Return if no improvement. Follow up with Noman Dean DO. To ER if develops chest pain, shortness of breath Discussed risks, benefits, alternatives, and potential side effects of medications. Patient/Guardian expressed understanding and agreed with the plan. See patient instructions. Noman Dean DO [address] [place] [address] documented in this encounterZanesville City Hospital01-30-2023 Miscellaneous Notes* Telephone Encounter - Radha Crystal Ma - 12/30/2022 4:23 PM EST Last office visit: 11/12/22 F/u scheduled: 12/31/22 Radha Crystal Ma documented in this encounterZanesville City Hospital01-25-2023 History of Present illness Narrative* Harriett Gregorio PA-C - 12/25/2022 3:00 PM EST Patient: Otoniel Victoria PCP: Noman Dean DO CC: copd HPI: Otoniel Victoria 52 year old male current daily smoker, [...] Associated lightheadedness and shortness of breath. Occasionally willhave palpitations. Will last for a minute and [...] hyperactivity disorder) Arrhythmia Arthritis Bipolar 1 disorder ([facility]) Dr. Easley [facility] Chronic obstructive pulmonary disease ([facility]) 04/19/2019 Chronic obstructive pulmonary disease ([facility]) CML (chronic myeloid leukemia) ([facility]) 02/13/2015 Dr. 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 Vasquez Neurologist Multiple sclerosis ([facility]) 10/2005 Dr. Mauricio Vasquez Neurologist Osteoarthritis of left knee 01/2022 Other symptoms involving abdomen and pelvis(789.9) Palpitations Schizophrenia ([facility]) Dr. Easley [facility] Snoring Substance abuse rule out 03/15/2015 [...] mcg/actuation inhaler^INHALE 2 PUFFS INSTRUCTED EVERY FOUR HOURSAS NEEDED FOR WHEEZING / SHORTNESS OF BREATH^Disp: [...] Tab^take 1 tablet by mouth once daily^Disp: 28tablet^Rfl: 5 ANORO ELLIPTA 62.5-25 mcg/actuation inhaler^inhale 1 [...] to re-establish with GI. Consult placed to [facility] for Dr. Parada. - CONSULT TO GASTROENTEROLOGY 6. Dysphagia, unspecified type - ICD9: 787.20, ICD10: R13.10 See #5. Has a sensation of food getting stuck in esophagus. - CONSULT TO GASTROENTEROLOGY Harriett Gregorio PA-C documented in this encounterZanesville City Hospital01-20-2023 Miscellaneous Notes* Telephone Encounter - Delano Hernandez Ma - 12/20/2022 9:28 AM EST Unable to reach x3. Mychart sent. * Telephone Encounter - Abeba Pettit RN - 12/19/2022 8:19 AM EST VM left for pt to call PCP office and ask for a nurse, for message below. Abeba Pettit RN * Telephone Encounter - Noman Dean DO - 12/18/2022 8:05 PM EST Please call and clarify what symptoms he is having? Noman Dean DO * Telephone Encounter - Abeba Pettit RN - 12/17/2022 10:27 AM EST Pt calling and states his had an H. Pylori test done. He states he feels he is having many of the same symptoms as her and asking if PCP would place order for this test? Please call pt with update. Thank you. documented in this encounterZanesville City Hospital01-18-2023 Miscellaneous Notes* Telephone Encounter - Maria Dolores Randall APRN.CNP - 12/18/2022 11:11 AM EST PDMP website checked and validated. All prescriptions have been APPROPRIATELY filled. No suspiciousactivity was identified. 12/18/2022 by Maria Dolores Randall APRN.CNP The following approved medication requests have been transmitted electronically. Requested Prescriptions Signed Prescriptions Disp Refills amphetamine-dextroamphetamine XR (ADDERALL XR) 30 mg 24 hr capsule 30 capsule 0 Sig: Take 1 capsule by mouth once daily for 30 days. Authorizing Provider: MARIA DOLORES RANDALL APRN.CNP * Telephone Encounter - Grace Greene RN - 12/17/2022 12:58 PM EST Pt reports he has been out of this medication, and [facility] [place] [facility] on. He states theytold him that [facility] in [place] was the closest place that had any. [...] you. Grace Greene RN documented in this encounterZanesville City Hospital01-12-2023 Miscellaneous Notes* Telephone Encounter - Edgar Longoria APRN.CNP - 12/12/2022 2:17 PM EST The following approved medication requests have been transmitted electronically. Requested Prescriptions Signed Prescriptions Disp Refills amphetamine-dextroamphetamine XR (ADDERALL XR) 30 mg 24 hr capsule 30 capsule 0 Sig: Take 1 capsule by mouth once daily for 30 days. Authorizing Provider: EDGAR LONGORIA APRN.CNP PDMP website checked and validated. All prescriptions have been APPROPRIATELY filled. No suspiciousactivity was identified. 12/12/2022 by Edgar Longoria CNP. * Telephone Encounter - Berny Naidu RN - 12/12/2022 1:43 PM EST Patient has been identified by name and date of : Yes, Provider Dr. Dean Date 12-12-22 Time1:44 pm Patient phones for refill(s): Requested Prescriptions Pending Prescriptions Disp Refills amphetamine-dextroamphetamine XR (ADDERALL XR) 30 mg 24 hr capsule 30 capsule 0 Sig: Take 1 capsule by mouth once daily for 30 days. Date of last office visit with pcp: 11-12-22. Next appt: 12-31-22 Pended for [facility] Silver per patient request. Last 2 Encounter Wt [...] you. Berny Naidu RN documented in this encounterZanesville City Hospital01-09-2023 History of Present illness Narrative* Jersey Cole MD - 12/09/2022 1:32 PM EST Jersey Cole MD Department of Orthopaedics Orthopaedics [address] [place] [address] Dept: [phone] Dept December 09, 2022 CHIEF COMPLAINT: Established [...] inhaler INHALE 2 PUFFS INSTRUCTED EVERY FOUR HOURSAS NEEDED FOR WHEEZING / SHORTNESS OF BREATH [...] in NaCl (PF) 0.9% 10 mL injection ([employer]) INTRAVENOUS DIRECTED PRN sodium chloride 0.9 % (flush) 10 mL (BD POSIFLUSH) 10 mL INTRAVENOUS DIRECTED PRN Allergies: Aspirin, Penicillins, Pollen, and Topamax [Topiramate] Jersey Cole MD documented in this encounterZanesville City Hospital01-06-2023 Miscellaneous Notes* Telephone Encounter - Vashti Jiménez LPN - 12/06/2022 11:58 AM EST Spoke with pt gave information provided. Pt voices understanding. * Telephone Encounter - Noman Dean DO - 12/06/2022 7:54 AM EST The sequins stringer will be able to review the CT chest with patient Noman Dean DO * Telephone Encounter - Huyen Evans RN - 12/05/2022 10:21 AM EST Patient calling and asking if provider can send in order for CT Chest with contrast to see if thereis any difference or changes from the one that was done on 11/18? Patient has an appointment with specialist on 12/17/2022. Please review and advise, Huyen Evans RN documented in this encounterZanesville City Hospital01-03-2023 Miscellaneous Notes* Telephone Encounter - Lucinda Fournier LPN - 12/03/2022 1:02 PM EST Patient phones requesting refills as follows: Requested Prescriptions Pending Prescriptions Disp Refills atenolol (TENORMIN) 25 mg tablet [Pharmacy Med Name: ATENOLOL 25 MG TABLET] 90 tablet 1 Sig: take 1 tablet by mouth once daily HIWOT-11/12/22 Labs-09/02/22 NOV-12/31/22 med filled 06/05/22 Please review and advise. Lucinda Fournier LPN documented in this encounterZanesville City Hospital12-21-2022 Miscellaneous Notes* Telephone Encounter - Alla Veneags Pss - 11/20/2022 12:57 PM EST Contacted patient and scheduled in [place] on 12/17. Per the order that was placed, [place] is the closest location to see for this. Alla Venegas Pss * Telephone Encounter - Velvet Alcantar LPN - 11/20/2022 11:49 AM EST Pt. informed. Please schedule with Pulm. * Telephone Encounter - Noman Dean DO - 11/19/2022 5:11 PM EST Please inform patient that his CT chest showed: IMPRESSION: Trace bilateral pleural effusions, with associated mild interstitial edema. Stable subcentimeter pulmonary nodules. Stable 9 mm left adrenal adenoma. I would like him to follow up with Derrick Car Operator regarding the mild interstitial edema in his lungs. Hasn't been recently seen by this specialist Noman Dean DO documented in this encounterZanesville City Hospital12-19-2022 History of Present illness Narrative* Karlene Mccoy, RT(R) - 11/18/2022 3:40 PM EST Radiology Service Progress Note PATIENT NAME: Otoniel Victoria DATE OF SERVICE: November 18, 2022 TIME: 3:57 PM PATIENT IDENTITY VERIFICATION COMPLETED USING TWO (2) IDENTIFIERS: Name and Date of confirmedby patient verbally. FALL SCREENING: Has the patient [...] 18, 2022 3:57 PM documented in this encounterZanesville City Hospital12-19-2022 Miscellaneous Notes* Telephone Encounter - Vashti Jiménez LPN - 11/18/2022 2:56 PM EST Hiwot--11/12/22 Nov--08/22 Last refill--04/12/22 18g 11 refills Last labs--09/02/22 documented in this encounterZanesville City Hospital12-13-2022 History of Present illness Narrative* Noman Dean, - 11/12/2022 9:31 AM EST CC: Otoniel Victoria is a 52 year old male who presents to the office for follow up HPI: Seen in office on 01/22/22 About 2-3 weeks ago, he states that he states that he tripped and caught himself with his left kneeagainst an edge of a steel object on front of the knee and after that has had some discomfort. Worse with movement/walking, feels that he is feeling a grinding under my knee cap, symptoms come and go. No locking or [...] normal. has had EGD in the last 6- 9 months. Has increased prilosec to 40 mg a day, has seen Gastroenterogy and saw Ny Rodriguez and Dr. Lee, restarted Prilosec on 2020 dueto these symptoms. Hasn't started the carafate medication, which is the newest recommendations by Ny. No obvious new blood in stool or vomiting. ADHD, stable, taking adderall. Chronic b/l leg pain and MS, taking [place] as prescribed, tolerating well. Helps with ADLs and IADLswith dressing, bathing, gait, daily functioning. No new [...] Sometimes feels his symptoms aren't well enough controlledin the afternoon/evening. Wondering if dose adjustment can be made. Denies any SE from medication. Chronic b/l leg pain and MS, taking [place] as prescribed, tolerating well. Helps with ADLs and IADLswith dressing, bathing, gait, daily functioning. No new SE with medication Fullness and discomfort feeling in his neck, right sided and sharp shooting pain, lasting typicallyminutes, intermittent, states has been occurring x months, no fevers or chills. Has a long standinghistory of CML, will be seeing his Transportation Manager/Oncologist in a few weeks. Has had a neck MRI in the last 6-12 months which showed some DDD and DJD cervical spine, has been off his MS medications perNeurologist guidance since July 2021. Continues to have weakness and tingling and pain into arms,difficulty with technical services assistant strength of hands etc. No recent injuries or whiplash etc. Continued abdominal discomfort, GI upset, GERD symptoms, has been seeing Gastro LALO Alejandra and had anUpper GI and Small bowel series that was [...] Sometimes feels his symptoms aren't well enough controlledin the afternoon/evening. Wondering if dose adjustment can be made. Denies any SE from medication. Chronic b/l leg pain and MS, taking [place] as prescribed, tolerating well. Helps with ADLs and IADLswith dressing, bathing, gait, daily functioning. No new SE with medication Recently had a vision evaluation/superintendent maintenance appt with Miriam Arboleda OD, for blurring vision. Has myopia and presbyopia. Has bifocal glasses. CML, taking Sprycel Dasatinib per Dr. Heaton Oncologist MS, hasn't been on immune suppressant medication for 1 year. Is seeing Neurologist at [place] now. Currently ADHD, taking adderall XR in the morning. Sometimes feels his symptoms aren't well enough controlledin the afternoon/evening. Wondering if dose adjustment can be made. Denies any SE from medication. Chronic b/l leg pain and MS, taking [place] as prescribed, tolerating well. Helps with ADLs and IADLswith dressing, bathing, gait, daily functioning. No new SE with medication Recently had a vision evaluation/superintendent maintenance appt with Miriam Arboleda OD, for blurring vision. Has myopia and presbyopia. Has bifocal glasses. CML, taking Sprycel Dasatinib per Dr. Heaton Oncologist MS, hasn't been on immune suppressant medication for 1 year. Is seeing Neurologist at [place] now. Tobacco use, hasn't had a recent CT chest, has chronic intermittent cough, wheezing and dyspnea Recently had normal stress testing cardiac as well as ECHO Had recent right arm ulnar tunnel release surgery with Dr. Cole- has follow up scheduled. PAST MEDICAL HISTORY Diagnosis Date ADHD (attention deficit hyperactivity disorder) Arrhythmia Arthritis Bipolar 1 disorder ([facility]) Dr. Easley [facility] Chronic obstructive pulmonary disease ([facility]) 04/19/2019 Chronic obstructive pulmonary disease ([facility]) CML (chronic myeloid leukemia) ([facility]) 02/13/2015 Dr. 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 Vasquez Neurologist Multiple sclerosis ([facility]) 10/2005 Dr. Mauricio Vasquez Neurologist Osteoarthritis of left knee 01/2022 Other symptoms involving abdomen and pelvis(789.9) Palpitations Schizophrenia ([facility]) Dr. Easley [facility] Snoring Substance abuse rule out 03/15/2015 [...] inhaler INHALE 2 PUFFS INSTRUCTED EVERY FOUR HOURSAS NEEDED FOR WHEEZING / SHORTNESS OF BREATH [...] nares without drainage, pharynx without erythema, exudate, lesions,or drainage. Uvula midline. Neck: mild fullness in anterior inferior neck and supraclavicular area with associated discomfort, no obvious thyromegaly, no meningismus. ? Right carotid bruit present, no pain with swallowing CV: RRR, no murmur Lungs: CTA b/l, no wheezing Skin: mulitple atypical nevi on upper and mid and lower back Gait is slowed Weakness of hand technical services assistant b/l, weakness of biceps strength Wearing glasses Reduced ROM cervical spine PDMP website checked and validated. All prescriptions have been APPROPRIATELY filled. No suspiciousactivity was identified. 11/12/2022 by Noman Dean DO [...] Stage 2 moderate COPD by GOLD classification ([facility]) - ICD9: 496, ICD10: J44.9 [...] bed elevation 8. CML (chronic myeloid leukemia) ([facility]) - ICD9: 205.10, ICD10: C92.10 - f/u with Oncologist 9. PAD (peripheral artery disease) ([facility]) - ICD9: 443.9, ICD10: I73.9 [...] plan. See patient instructions. Noman Dean DO [address] [place] [address] documented in this encounterZanesville City Hospital11-22-2022 History of Present illness Narrative* Michelle Zambrano APRN.CNP - 10/22/2022 9:30 AM EST No show for visit. Michelle Zambrano APRN.CNP documented in this encounterZanesville City Hospital11-16-2022 Miscellaneous Notes* Telephone Encounter - Rody Augustine Ma - 10/16/2022 10:42 AM EST I called and spoke with patient. He was transferred to [facility] to get scheduled. * Telephone Encounter - Marilou Chavez LPN - 10/15/2022 10:16 AM EST Julia with Pre admit testing called to update on patient, no showed visit and has not returned phone calls left on patient voice mail. FYI * Telephone Encounter - Padmini Dodd PA-C - 10/10/2022 3:15 PM EST Patient was scheduled for in person [facility] appt at 3:00 today. Patient did not check in for appt, called patient at 3:01 to see if they were planning on coming. Patient did not answer. Routed to [facility] schedulers. documented in this encounterZanesville City Hospital11-10-2022 Miscellaneous Notes* Telephone Encounter - Edgar Longoria APRN.CNP - 10/10/2022 5:31 PM EST The following approved medication requests have been [...] All prescriptions have been APPROPRIATELY filled. No suspiciousactivity was identified. 10/10/2022 by Edgar Longoria CNP. * Telephone Encounter - Huyen Evans RN - 10/08/2022 1:20 PM EST Last Office Visit: 08/13/2022 Future Office Visit: [...] of Last Labs: 09/02/2022 documented in this encounterZanesville City Hospital11-04-2022 Miscellaneous Notes* Telephone Encounter - Rody Augustine Ma - 10/04/2022 9:01 AM EDT Surgery has been scheduled as requested. * Telephone Encounter - Rody Augustine Ma - 10/03/2022 1:58 PM EDT Surgical request completed. Post op appointments have been scheduled and mailed to patient. * Telephone Encounter - Rody Augustine Ma - 10/03/2022 1:25 PM EDT Patient to be scheduled for right elbow extensor tendon debridement at [facility] on 10/30/2022. documented in this encounterZanesville City Hospital11-03-2022 History of Present illness Narrative* Jersey Cole MD - 10/03/2022 12:50 PM EDT Jersey Cole MD Department of Orthopaedics Orthopaedics [address] [facility] [address] Dept: [phone] Dept October 03, 2022 CHIEF COMPLAINT: Established [...] inhaler INHALE 2 PUFFS INSTRUCTED EVERY FOUR HOURSAS NEEDED FOR WHEEZING / SHORTNESS OF BREATH [...] [Topiramate] Jersey Cole MD documented in this encounterZanesville City Hospital10-21-2022 Miscellaneous Notes* Telephone Encounter - SHAHRIAR Sharma - 09/20/2022 3:58 PM EDT SW called pt to assess needs due to a score of 15 on a recent PHQ and a score of 8 on a recent distress thermometer. Pt unavailable. SW left message with direct call-back number. PHQ-9 04/13/2022 06/07/2022 09/14/2022 Score 14 15 15 Unable To Reach Patient SHAHRIAR Sharma-S documented in this encounterZanesville City Hospital10-17-2022 History of Present illness Narrative* Otoniel Shanesylvia, - 09/16/2022 3:18 PM EDT Diagnosis: 1) CML chronic phase 2) MGUS HPI: The patient is a 51 yo male who has h/o MS (exacerbating/remitting type; previous medications for MS: Avonex (2005), IV Steroids (2005) and PO Steroids (taper was rough, IV no issues). Currentlyon Tecfidera (May 2013). Symptoms from MS had [...] SPEP. Bone marrow biopsy incidentally revealed CML: 46,XY,t(9;22)(q34;q11.2)[7]/46,XY[13] BCR/ABL1 transcripts detected, p210 (e13a2) isoform Peripheral [...] Tissues: No significant finding. Lower thorax: Unremarkable. Program Engineer (topogram) images: Unremarkable. Ultrasound right upper quadrant [...] and erythema in the entire stomach. Biopsies wereobtained. Normal lower third of the esophagus and [...] contributing to abdominal pain. Changed neurologists to [place]. MS symptoms flaring. Tolerating Sprycel well with [...] diminished intensity in all sotelo. No rales, wheezesor rhonchi. CARDIOVASCULAR: Rhythm is regular. ABDOMEN: The abdomen is nondistended. No organomegaly. No tenderness. Extremities: No swelling or edema. SKIN: No jaundice or rash currently. NEUROLOGIC: pattern painter II-XII are grossly intact. No focal motor [...] Abs Lymph 1.00 - 4.00 k/uL 2.21 Ashe% % 7.6 Abs Ashe <0.87 k/uL 0.46 Eosin% % 3.0 Abs [...] necessary. Otoniel Heaton DO documented in this encounterZanesville City Hospital10-10-2022 Miscellaneous Notes* Telephone Encounter - Adams Welch MA - 09/09/2022 7:55 AM EDT Patient phones requesting refills as follows: Requested Prescriptions Pending Prescriptions Disp Refills linaCLOtide (LINZESS) 72 mcg capsule 30 capsule 5 Sig: Take first thing in the morning, 30 minutes before eating anything.Swallow whole; DO NOT crushor chew. Please review and advise. Adams Welch MA documented in this encounterZanesville City Hospital10-03-2022 Miscellaneous Notes* Telephone Encounter - Fawn Fontenot LPN - 09/02/2022 1:57 PM EDT Patient here for labs. Please file orders. Fawn Fontenot LPN documented in this encounterZanesville City Hospital10-03-2022 History of Present illness Narrative* Heber Arce, RT(R) - 09/02/2022 1:30 PM EDT Radiology Service Progress Note PATIENT NAME: Otoniel Victoria DATE OF SERVICE: September 02, 2022 TIME: 1:37 PM PATIENT IDENTITY VERIFICATION COMPLETED USING TWO (2) IDENTIFIERS: Name and Date of confirmedby patient verbally. FALL SCREENING: Has the patient [...] 02, 2022 1:37 PM documented in this encounterZanesville City Hospital09-15-2022 Miscellaneous Notes* Telephone Encounter - Radha Crystal Ma - 08/15/2022 9:21 AM EDT Pt notified of results via Certesst. Radha Crystal Ma * Telephone Encounter - Noman Dean DO - 08/14/2022 8:48 PM EDT Please inform patient that his vitamin B12 levels are low normal. I would like him to have additional labs drawn as ordered below Noman Dean DO documented in this encounterZanesville City Hospital09-13-2022 Nurse Note* Josefa Kumar RN - 08/13/2022 5:17 PM EDT AMBULATORY PATIENT EDUCATION NOTE TOPIC: GI PROCEDURES: [...] / FAMILY RESPONSE: Verbalizes understanding of: WORSENING CONDITION- Signs and symptoms of aworsening condition that warrant a call to the physician FOLLOW-UP PLAN: Patient instructed to call with any further issues SUPPLEMENTAL MATERIAL: Procedure Discharge Instructions REFERRAL (RECOMMENDATION): None * Willow Rasmussen RN - 08/13/2022 4:33 PM EDT PRE OP LEARNING ASSESSMENT PROCEDURE/SURGERY: GI PROCEDURES: EGD READINESS TO LEARN COGNITIVE ABILITY: Alert and oriented MOTIVATION TO LEARN: Eager Interested FAMILY SUPPORT: High PATIENT LEARNS BEST BY: Individual Instruction Verbal Instruction FACTORS AFFECTING LEARNING: None PHYSICAL LIMITATIONS AFFECTING LEARNING: None Electronically Signed By: Willow Rasmussen RN In Department: GASTROENTEROLOGY documented in this encounterZanesville City Hospital09-13-2022 Miscellaneous Notes* Telephone Encounter - Rody Augustine Ma - 08/13/2022 2:22 PM EDT Surgery has been scheduled as requested. * Telephone Encounter - Rody Augustine Ma - 08/12/2022 3:28 PM EDT Surgical request completed for left elbow lateral extensor tendon debridement at [facility] on08/23/2022. Post op appointments have been scheduled and mailed to patient. documented in this encounterZanesville City Hospital09-13-2022 History of Present illness Narrative* Noman Dean DO - 08/13/2022 9:03 AM EDT CC: Otoniel Victoria is a 52 year old male who presents to the office for 3 months follow up HPI: Seen in office on 01/22/22 About 2-3 weeks ago, he states that he states that he tripped and caught himself with his left kneeagainst an edge of a steel object on front of the knee and after that has had some discomfort. Worse with movement/walking, feels that he is feeling a grinding under my knee cap, symptoms come and go. No locking or [...] normal. has had EGD in the last 6- 9 months. Has increased prilosec to 40 mg a day, has seen Gastroenterogy and saw Ny Rodriguez and Dr. Lee, restarted Prilosec on 2020 dueto these symptoms. Hasn't started the carafate medication, which is the newest recommendations by Ny. No obvious new blood in stool or vomiting. ADHD, stable, taking adderall. Chronic b/l leg pain and MS, taking [place] as prescribed, tolerating well. Helps with ADLs and IADLswith dressing, bathing, gait, daily functioning. No new [...] Sometimes feels his symptoms aren't well enough controlledin the afternoon/evening. Wondering if dose adjustment can be made. Denies any SE from medication. Chronic b/l leg pain and MS, taking [place] as prescribed, tolerating well. Helps with ADLs and IADLswith dressing, bathing, gait, daily functioning. No new SE with medication Fullness and discomfort feeling in his neck, right sided and sharp shooting pain, lasting typicallyminutes, intermittent, states has been occurring x months, no fevers or chills. Has a long standinghistory of CML, will be seeing his Transportation Manager/Oncologist in a few weeks. Has had a neck MRI in the last 6-12 months which showed some DDD and DJD cervical spine, has been off his MS medications perNeurologist guidance since July 2021. Continues to have weakness and tingling and pain into arms,difficulty with technical services assistant strength of hands etc. No recent injuries or whiplash etc. Continued abdominal discomfort, GI upset, GERD symptoms, has been seeing Gastro LALO Alejandra and had anUpper GI and Small bowel series that was [...] Sometimes feels his symptoms aren't well enough controlledin the afternoon/evening. Wondering if dose adjustment can be made. Denies any SE from medication. Chronic b/l leg pain and MS, taking Saint Augustine as prescribed, tolerating well. Helps with ADLs and IADLswith dressing, bathing, gait, daily functioning. No new SE with medication Recently had a vision evaluation/superintendent maintenance appt with Miriam Arboleda OD, for blurring vision. Has myopia and presbyopia. Has bifocal glasses. CML, taking Sprycel Dasatinib per Dr. Heaton Oncologist MS, hasn't been on immune suppressant medication for 1 year. Is seeing Neurologist at [place] now. PAST MEDICAL HISTORY Diagnosis Date ADHD (attention deficit hyperactivity disorder) Arrhythmia Arthritis Bipolar 1 disorder ([facility]) Dr. Easley [facility] Chronic obstructive pulmonary disease ([facility]) 04/19/2019 Chronic obstructive pulmonary disease ([facility]) CML (chronic myeloid leukemia) ([facility]) 02/13/2015 Dr. 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 Vasquez Neurologist Multiple sclerosis ([facility]) 10/2005 Dr. Mauricio Vasquez Neurologist Osteoarthritis of left knee 01/2022 Other symptoms involving abdomen and pelvis(789.9) Palpitations Schizophrenia ([facility]) Dr. Easley [facility] Snoring Substance abuse rule out 03/15/2015 [...] inhaler INHALE 2 PUFFS INSTRUCTED EVERY FOUR HOURSAS NEEDED FOR WHEEZING / SHORTNESS OF BREATH [...] nares without drainage, pharynx without erythema, exudate, lesions,or drainage. Uvula midline. Neck: mild fullness in anterior inferior neck and supraclavicular area with associated discomfort, no obvious thyromegaly, no meningismus. ? Right carotid bruit present, no pain with swallowing CV: RRR, no murmur Lungs: CTA b/l, no wheezing Skin: No rashes, lesions, or wounds on exposed skin. Scattered bruises present right and left arms,right and left thighs. Gait is slowed Weakness of hand technical services assistant b/l, weakness of biceps strength Wearing glasses Reduced ROM cervical spine ASSESSMENT/PLAN: 1. Bilateral leg pain - ICD9: 729.5, ICD10: M79.604, M79.605 (primary diagnosis) rx refilled, overall symptoms are stable for leg pain, needs to follow up with Neurologist for management of his MS, which he is aware. No recent falls. Needs to see Side Door Worker for follow up as well - HYDROCODONE [...] aware. No recent falls. Needs to see Side Door Worker for follow up as well - HYDROCODONE [...] See patient instructions. Noman Dean DO [address] [place] [address] documented in this encounterZanesville City Hospital09-08-2022 Miscellaneous Notes* Telephone Encounter - Maria Dolores Young APRN.CNP - 08/08/2022 4:22 PM EDT PDMP website checked and validated. All prescriptions have been APPROPRIATELY filled. No suspiciousactivity was identified. 08/08/2022 by Maria Dolores Young [...] 30 days. Authorizing Provider: MARIA DOLORES YOUNG APRN.TRIAL COURT JUSTICE * Telephone Encounter - Vashti Jiménez LPN - 08/08/2022 3:13 PM EDT Hiwot-- 05/13/22 next-- 08/13/22 Last refill-- norc 07/10/22 60 with 0 refills Adderall 30mg 07/10/22 30 with 0 Adderrall 10mg 07/10/22 30 with 0 Last labs--05/17/22 * Telephone Encounter - Abeba Pettit RN - 08/08/2022 3:04 PM EDT Patient has been identified by name and [...] you. Abeba Pettit RN documented in this encounterZanesville City Hospital09-08-2022 History of Present illness Narrative* Jersey Cole MD - 08/08/2022 11:16 AM EDT Jersey Cole MD Department of Orthopaedics Orthopaedics [address] [facility] [address] Dept: [phone] Dept August 08, 2022 CHIEF COMPLAINT: Established [...] benefit from a cortisone injection. Mr. Otoniel Victoria was advised as to contrast therapies and/or to take analgesics/anti-inflammatories as needed and all contraindications were reviewed. OBJECTIVE: Mr. Otoniel Victoria is a pleasant 52 year old in [...] inhaler INHALE 2 PUFFS INSTRUCTED EVERY FOUR HOURSAS NEEDED FOR WHEEZING / SHORTNESS OF BREATH [...] anxiety) Jersey Cole MD documented in this encounterZanesville City Hospital09-06-2022 Miscellaneous Notes* Telephone Encounter - Aby Marin RN - 08/06/2022 1:09 PM EDT Attempted to reach the patient at the contact number that they provided [phone] (home). Unableto speak with patient so without identifying the patient the following information was left on their voice mail: -Date of procedure, location and report time -A message was left informing the patient/patient electroplating sales representative they must have a responsible adultaccompany them to their procedure; and remain in [...] -Number to call with questions or concerns [phone] Aby Marin RN BSN documented in this encounterZanesville City Hospital09-06-2022 Miscellaneous Notes* Telephone Encounter - Lucinda Fournier LPN - 08/06/2022 11:49 AM EDT Patient phones requesting refills as follows: Requested Prescriptions Pending Prescriptions Disp Refills diclofenac (VOLTAREN) 1 % topical gel [Pharmacy Med Name: DICLOFENAC SODIUM 1% GEL] 100 g 0 Sig: apply 2 grams TO AFFTECTED AREA three times a day HIWOT-05/13/22 Labs-05/17/22 NOV-08/13/22 med filled 05/06/22 Please review and advise. Lucinda Fournier LPN documented in this encounterZanesville City Hospital08-26-2022 Miscellaneous Notes* Telephone Encounter - Rody Augustine Ma - 07/26/2022 4:02 PM EDT I called and spoke with patient. He would like to come in and discuss with Dr. Cole. Appointment made. * Telephone Encounter - Isatu Amaya PA-C - 07/26/2022 3:44 PM EDT He can either follow up with Dr. [...] Either option would be appropriate, patients choice. * Telephone Encounter - Christina Darion - 07/24/2022 12:07 PM EDT Left elbow injection in March. Pt states that it was helpful for approx 1 month. It is really gettingbad now and the right elbow is also bothering him. He was told at last appt that if the injection didn't work then he would possibly need surgery. He is just wanting to know what the next step is. I offered to make appt to discuss and he would like to discuss with Orthopedic nurse prior to scheduling. Will route to [facility] for review. Christina Orlando documented in this encounterZanesville City Hospital08-25-2022 History of Present illness Narrative* Miriam Arboleda, OD - 07/25/2022 3:13 PM EDT 1. Meibomian gland dysfunction (MGD) of upper and lower lids of both eyes Educated pt on condition Recommended warm compresses twice daily 2. Myopia, bilateral 3. Presbyopia Continue with current glasses-will do refraction at follow-up No other ocular pathology found on examination Follow-up in 3 weeks Miriam Arboleda, OD July 25, 2022 3:13 PM documented in this encounterZanesville City Hospital08-24-2022 Miscellaneous Notes* Telephone Encounter - Jade Morataya LPN - 07/24/2022 10:59 AM EDT Scheduled 08/13/22 * Telephone Encounter - Harriett Youssef - 07/11/2022 4:08 PM EDT Pt called stating he tried to schedule with current order at [facility]. He states he needs order to be for full sedation and they indicated he want location to be [facility]. * Telephone Encounter - Inez Vu - 07/10/2022 8:54 AM EDT Patient going to [facility]. Order already changed * Telephone Encounter - Jade Morataya LPN - 06/28/2022 1:01 PM EDT Patient wants seen where ever he can get in the fastest. Message sent to [facility] scheduling office for their first available. * Telephone Encounter - Ny Rodriguez APRN.CNP - 06/27/2022 1:34 PM EDT Patient tolerated the procedure fine with at the [facility]. Can you please call patient and ask which he would prefer [facility] or [place] ([place] he would be waiting longer) Thanks Ny Rodriguez APRN.LALO * Telephone Encounter - Mariano Blanton - 06/27/2022 12:[address] mcconnell, patient needs to be MAC. Would you like patient go to [place] or [facility]? Malinda, please reschedule patient if Ny would like patient to be done in [place]. Thank you, Mariano * Telephone Encounter - Jade Morataya LPN - 05/21/2022 12:22 PM EDT Patient is scheduled at [facility] on 07/04/[address] MCCONNELL for EGD. DX: Gastroesophageal reflux disease without esophagitis [K21.9 (ICD-10-CM)]; History of peptic ulcer disease [Z87.11 (ICD-10-CM)]; Pain of upper abdomen [R10.10 (ICD-10-CM)] Verbal and written instructions given. documented in this encounterZanesville City Hospital08-18-2022 Miscellaneous Notes* Telephone Encounter - Ny Rodriguez APRN.CNP - 07/18/2022 12:26 PM EDT EGD orders placed Ny Rodriguez APRN.CNP documented in this encounterZanesville City Hospital08-10-2022 Miscellaneous Notes* Telephone Encounter - Maria Dolores Young APRN.CNP - 07/10/2022 11:49 AM EDT PDMP website checked and validated. All prescriptions have been APPROPRIATELY filled. No suspiciousactivity was identified. 07/10/2022 by Maria Dolores Young [...] 30 days. Authorizing Provider: MARIA DOLORES YOUNG APRN.CNP * Telephone Encounter - Huyen Evans RN - 07/10/2022 11:09 AM EDT Last Office Visit: 05/13/2022 Future Office Visit: 08/13/2022 Requested Prescriptions Pending Prescriptions Disp Refills oxybutynin ER (DITROPAN XL) 15 mg 24 hr Extended Rel Tab [Pharmacy Med Name: OXYBUTYNIN CL ER 15 MGTABLET] 28 tablet 5 Sig: take 1 tablet [...] up to 30 days. Last Labs: 02/13/2022 * Telephone Encounter - Jade Morataya LPN - 07/10/2022 11:03 AM EDT Last office visit: 05/13/22 Pharmacy calls in requesting the following refill(s): Requested Prescriptions Pending Prescriptions Disp Refills oxybutynin ER (DITROPAN XL) 15 mg 24 hr Extended Rel Tab [Pharmacy Med Name: OXYBUTYNIN CL ER 15 MGTABLET] 28 tablet 5 Sig: take 1 tablet by mouth once daily documented in this encounterZanesville City Hospital08-03-2022 History of Present illness Narrative* Jammie Cintron (Sandblast Carver) - 07/03/2022 1:48 PM EDT [facility] Refill Assessment Medication(s): Sprycel Patient's [...] progressing towards achieving therapeutic goals based on medication- specific laboratory parameters, disease state markers and outcomes. [facility] Visit Assessment - Hematology/Oncology: Assessment to use: Refill Non-Clinical Assessment: Patient confirmed: Yes Med/dose confirmed: Yes Supplies needed: N/A Missed doses: No Estimated days supply on hand: 6 Copay amount: 0 Address confirmed: Yes Delivery method: FedEx Delivery address: [address] [place] [address] [place] [address] Delivery date: 07/05/2022 Patient has questions: No [...] Duration: Until progression or toxicity Jammie Cintron (Sandblast Carver) documented in this encounterZanesville City Hospital08-03-2022 History of Present illness Narrative* Ny Rodriguez APRN.CNP - 07/03/2022 1:27 PM EDT EGD order placed for [facility] Ny Rodriguez APRN.CNP documented in this encounterZanesville City Hospital08-03-2022 Miscellaneous Notes* Telephone Encounter - Grace Greene RN - 07/03/2022 1:13 PM EDT Pt called in and reports he wants to be scheduled as soon as possible. He reports he talked with someone and they told him to call [facility] if he wanted to be scheduled at the earliest time. Pt states he called [facility] and they told him that Ny Rodriguez BREAD WRAPPER OPERATOR would need to change the orders for him to get the EGD up there. Pt is going to talk with Malinda about getting in at [facility], but depending on how far out it is Pt is wanting provider to place a new order so he can have it up at [facility]. Pt reports his situation has gotten worse and the provider knows about it. Please call and advise. documented in this encounterZanesville City Hospital08-02-2022 Miscellaneous Notes* Telephone Encounter - Andrey Wolf RPh - 07/02/2022 1:48 PM EDT Please review and if therapy is being continued, please sign this order request via eRx to [facility]. Pending Prescriptions Disp Refills DASATINIB 80 MG TABLET 30 tablet 2 Sig: Take 1 tablet (80mg) by mouth once daily. COLE: No Andrey Wolf, PharmD, BCPS, CSP, MSCS Clinical Pharmacist [facility] P: ; F: Pool: P [facility] ON[facility] Pool #: [id number] documented in this encounterZanesville City Hospital08-02-2022 Miscellaneous Notes* Telephone Encounter - Alla Ortiz - 07/02/2022 9:47 AM EDT Johana, a schedule with the call center called the office to ask you to fix the patient's EGD order. She said the anesthesia needs to be in the Sedation Required field, not the notes and to remove the [place] location, can leave it blank so they can search all locations. documented in this encounterZanesville City Hospital07-11-2022 Miscellaneous Notes* Telephone Encounter - Maria Dolores Young APRN.CNP - 06/10/2022 3:45 PM EDT PDMP website checked and validated. All prescriptions have been APPROPRIATELY filled. No suspiciousactivity was identified. The following approved medication requests [...] COLE: No Authorizing Provider: MARIA DOLORES YOUNG APRN.TRIAL COURT JUSTICE 06/10/2022 by Maria Dolores Young APRN.TRIAL COURT JUSTICE * Telephone Encounter - Berny Naidu RN - 06/10/2022 9:53 AM EDT Patient has been identified by name and [...] up to 30 days. MARCIO Class: C-II OCLE: No Date of last office visit with [...] you. Berny Naidu RN documented in this encounterZanesville City Hospital06-22-2022 History of Present illness Narrative* Otoniel Heaton, DO - 05/22/2022 10:47 AM EDT Diagnosis: 1) CML chronic phase 2) MGUS HPI: The patient is a 51 yo male who has h/o MS (exacerbating/remitting type; previous medications for MS: Avonex (2005), IV Steroids (2005) and PO Steroids (taper was rough, IV no issues). Currentlyon Tecfidera (May 2013). Symptoms from MS had [...] SPEP. Bone marrow biopsy incidentally revealed CML: 46,XY,t(9;22)(q34;q11.2)[7]/46,XY[13] BCR/ABL1 transcripts detected, p210 (e13a2) isoform Peripheral [...] Tissues: No significant finding. Lower thorax: Unremarkable. Program Engineer (topogram) images: Unremarkable. Ultrasound right upper quadrant [...] and erythema in the entire stomach. Biopsies wereobtained. Normal lower third of the esophagus and [...] contributing to abdominal pain. Changing neurologists to [place]. Tolerating Sprycel well with no side effect [...] (98.8 F), weight 82.6 kg (182 lb), IcA119 %. Well-appearing and in no acute distress. EYES: Sclerae are anicteric bilaterally. NECK: Supple. LYMPHATIC: There is no palpable cervical or supraclavicular adenopathy. RESPIRATORY: Inspiratory breath sounds are of diminished intensity in all sotelo. No rales, wheezesor rhonchi. CARDIOVASCULAR: Rhythm is regular. ABDOMEN: The abdomen is nondistended. No organomegaly. No tenderness. Extremities: No swelling or edema. SKIN: No jaundice or rash currently. NEUROLOGIC: pattern painter II-XII are grossly intact. No focal motor [...] Abs Lymph 1.00 - 4.00 k/uL 2.79 Ashe% % 8.8 Abs Ashe <0.87 k/uL 0.54 Eosin% % 1.6 Abs [...] protein is identified on protein electrophoresis. . .. No definitive M protein is identified on protein electrophoresis. . . . SEE COMMENT SEE COMMENT SEE COMMENT SEE COMMENT SEE COMMENT SEE COMMENT M-Protein Location N/A N/A N/A Gamma fraction N/A N/A N/A N/A M-Protein Concentration 0.00 gm/dL 0.00 0.00 0.00 0.11 (H) 0.00 0.00 0.00 0.00 SPE Staff Review Haja Vargas MD, MARTITA ([id number]) Reviewed by David Guo MD ([id number]) Reviewed by Yuri Rendon M.D. ([id number]) Reviewed by Michelle Fernandez MD ([id number]) Reviewed by Mario Montgomery M.D., PhD([id number]) Reviewed by Michelle Fernandez MD ([id number]) Reviewed by Michelle Fernandez MD ([id number]) Reviewed by Michelle Fernandez MD ([id number]) MPA IgG, Serum 700 - 1,600 mg/dL 430 (L) 458 (L) 437 (L) 424 (L) 468 (L) MPA IgA, Serum 70 - 400 mg/dL 209 249 257 270 289 MPA IgM, Serum 40 - 230 mg/dL 22 (L) 22 (L) 23 (L) 24 (L) 27 (L) [place] Free, Serum 3.30 - 19.40 mg/L 9.5 [...] Review (MPA) Reviewed by Michelle Fernandez MD ([id number]) Reviewed by Mario Montgomery M.D., PhD ([id number]) Reviewed by Michelle Fernandez MD ([id number]) Reviewed by Michelle Fernandez MD ([id number]) Reviewed by MD Lucio ([id number]) %IS went from 0.0133-0.0044 as of 05/17/2022. [...] necessary. Otoniel Heaton DO documented in this encounterZanesville City Hospital06-21-2022 Miscellaneous Notes* Addendum Note - Jade Morataya LPN - 05/21/2022 1:19 PM EDT Addended by: JADE MORATAYA LPN on: 05/21/2022 01:19 PM Modules accepted: Orders documented in this [facility]-21-[facility] Instructions* Patient Instructions* Ny Rodriguez APRN.CNP - 05/21/2022 12:03 PM [...] Follow up after EGD [facility] History of Present illness Narrative* Ny Rodriguez APRN.CNP - 05/21/2022 11:30 AM EDT CHIEF COMPLAINT: Patient presents with: Abdominal Pain: [...] metaplasia, dysplasia or infiltrative lesion. HPI Otoniel Victoria is a 51 year old male here today for ongoing GI concerns. Patient has history GERD and PUD induced by NSAIDs. Patient reports he is having ongoing abdominal pain in the upper abdomen. He reports today anything he eats or drinks, even water will cause achingdull pain sharp shooting pains. Patient denies heartburn, [...] inhaler INHALE 2 PUFFS INSTRUCTED EVERY FOUR HOURSAS NEEDED FOR WHEEZING / SHORTNESS OF BREATH [...] hyperactivity disorder) Arrhythmia Arthritis Bipolar 1 disorder ([facility]) Dr. Easley [facility] Chronic obstructive pulmonary disease ([facility]) 04/19/2019 Chronic obstructive pulmonary disease ([facility]) CML (chronic myeloid leukemia) ([facility]) 02/13/2015 Dr. 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 Vasquez Neurologist Multiple sclerosis ([facility]) 10/2005 Dr. Mauricio Vasquez Neurologist Osteoarthritis of left knee 01/2022 Other symptoms involving abdomen and pelvis(789.9) Palpitations Schizophrenia ([facility]) Dr. Easley [facility] Snoring Substance abuse rule out 03/15/2015 [...] eats or drinks, even water will cause achingdull pain sharp shooting pains. Patient denies heartburn, [...] which included preparing to see the patient, [id number] patient care, completing clinical documentation, obtaining and/or reviewing separately obtained history, performing a medically appropriate examination, counseling and educating the pat ient/family/caregiver, ordering medications, tests, or procedures, communicating with other HCPs (not separately reported), independently interpreting results (not separately reported), communicatingresults to the patient/family/caregiver, and care coordination (not separately reported). Ny Rodriguez APRN.CNP DATE: 05/21/22 TIME: 8:44 AM documented in this encounterZanesville City Hospital06-17-2022 History of Present illness Narrative* RT Eugenio(R) - 05/17/2022 2:00 PM EDT Radiology Service Progress Note PATIENT NAME: Otoniel Victoria DATE OF SERVICE: May 17, 2022 TIME: 1:58 PM PATIENT IDENTITY VERIFICATION COMPLETED USING TWO (2) IDENTIFIERS: Name and Date of confirmedby patient verbally. FALL SCREENING: Has the patient [...] 17, 2022 1:58 PM documented in this encounterZanesville City Hospital06-16-2022 Miscellaneous Notes* Telephone Encounter - Belle Flowers - 05/16/2022 3:13 PM EDT Patient is [place] 06/10 * Telephone Encounter - Velvetgil Alcantar LPN - 05/14/2022 12:23 PM EDT Pt. informed would rather see a Neurologist [facility] but not in [place]. Velvet Alcantar LPN * Telephone Encounter - Noman Dean DO - 05/14/2022 11:09 AM EDT Please inform patient that overall his carotid artery US is normal/ Also his CT of the neck soft tissue is also overall normal. I think his symptoms are likely coming from neck / cervical spine DDD and DJD arthritis changes and potentially from other neurologic conditions such as his MS. Would recommend follow up with Neurologist Noman Dean DO documented in this encounterZanesville City Hospital06-16-2022 Miscellaneous Notes* Telephone Encounter - Aneta Vargas - 05/16/2022 6:49 AM EDT Pt added to schedule for today. Aneta Vargas * Telephone Encounter - Otoniel Heaton DO - 05/15/2022 4:37 PM EDT Okay. Otoniel Heaton DO * Telephone Encounter - Diana Henriquez LPN - 05/15/2022 4:32 PM EDT Pt missed his lab/xray apt today, pt would like to come tomorrow at 10:45. Diana Henriquez LPN documented in this encounterZanesville City Hospital06-15-2022 Miscellaneous Notes* Telephone Encounter - Diana Henriquez LPN - 05/15/2022 4:29 PM EDT documented in this encounterZanesville City Hospital06-14-2022 History of Present illness Narrative* RT Marlys(R) - 05/14/2022 8:00 AM EDT Radiology Service Progress Note PATIENT NAME: Otoniel Victoria DATE OF SERVICE: May 14, 2022 TIME: 9:07 AM PATIENT IDENTITY VERIFICATION COMPLETED USING TWO (2) IDENTIFIERS: Name and Date of confirmedby patient verbally. FALL SCREENING: Has the patient [...] 14, 2022 9:07 AM documented in this encounterZanesville City Hospital06-13-2022 History of Present illness Narrative* Noman Dean DO - 05/13/2022 5:12 PM EDT CC: Otoniel Victoria is a 51 year old male who presents to the office for follow up HPI: Seen in office on 01/22/22 About 2-3 weeks ago, he states that he states that he tripped and caught himself with his left kneeagainst an edge of a steel object on front of the knee and after that has had some discomfort. Worse with movement/walking, feels that he is feeling a grinding under my knee cap, symptoms come and go. No locking or [...] normal. has had EGD in the last 6- 9 months. Has increased prilosec to 40 mg a day, has seen Gastroenterogy and saw Ny Rodriguez and Dr. Lee, restarted Prilosec on 2020 dueto these symptoms. Hasn't started the carafate medication, which is the newest recommendations by Ny. No obvious new blood in stool or vomiting. ADHD, stable, taking adderall. Chronic b/l leg pain and MS, taking [place] as prescribed, tolerating well. Helps with ADLs and IADLswith dressing, bathing, gait, daily functioning. No new [...] Sometimes feels his symptoms aren't well enough controlledin the afternoon/evening. Wondering if dose adjustment can be made. Denies any SE from medication. Chronic b/l leg pain and MS, taking [place] as prescribed, tolerating well. Helps with ADLs and IADLswith dressing, bathing, gait, daily functioning. No new SE with medication Fullness and discomfort feeling in his neck, right sided and sharp shooting pain, lasting typicallyminutes, intermittent, states has been occurring x months, no fevers or chills. Has a long standinghistory of CML, will be seeing his Transportation Manager/Oncologist in a few weeks. Has had a neck MRI in the last 6-12 months which showed some DDD and DJD cervical spine, has been off his MS medications perNeurologist guidance since July 2021. Continues to have weakness and tingling and pain into arms,difficulty with technical services assistant strength of hands etc. No recent injuries or whiplash etc. Continued abdominal discomfort, GI upset, GERD symptoms, has been seeing Gastro [employer] Ny and had anUpper GI and Small bowel series that was [...] hyperactivity disorder) Arrhythmia Arthritis Bipolar 1 disorder ([facility]) Dr. Easley [facility] Chronic obstructive pulmonary disease ([facility]) 04/19/2019 Chronic obstructive pulmonary disease ([facility]) CML (chronic myeloid leukemia) ([facility]) 02/13/2015 Dr. 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 Vasquez Neurologist Multiple sclerosis ([facility]) 10/2005 Dr. Mauricio Vasquez Neurologist Osteoarthritis of left knee 01/2022 Other symptoms involving abdomen and pelvis(789.9) Palpitations Schizophrenia ([facility]) Dr. Easley [facility] Snoring Substance abuse rule out 03/15/2015 [...] inhaler INHALE 2 PUFFS INSTRUCTED EVERY FOUR HOURSAS NEEDED FOR WHEEZING / SHORTNESS OF BREATH [...] nares without drainage, pharynx without erythema, exudate, lesions,or drainage. Uvula midline. Neck: mild fullness in anterior inferior neck and supraclavicular area with associated discomfort, no obvious thyromegaly, no meningismus. ? Right carotid bruit present, no pain with swallowing CV: RRR, no murmur Lungs: CTA b/l, no wheezing Skin: No rashes, lesions, or wounds on exposed skin. Scattered bruises present right and left arms,right and left thighs. Gait is slowed Weakness of hand technical services assistant b/l, weakness of biceps strength Wearing glasses Reduced ROM cervical spine PDMP website checked and validated. All prescriptions have been APPROPRIATELY filled. No suspiciousactivity was identified. 05/13/2022 by Noman Dean DO ASSESSMENT/PLAN: 1. Spontaneous bruising - ICD9: 782.7, ICD10: R23.3 (primary diagnosis) - recheck labs, f/u with Transportation Manager / Oncologist as scheduled, unsure the cause. [...] WO IVCON 7. CML (chronic myeloid leukemia) (H[facility]) - ICD9: 205.10, ICD10: C92.10 - unsure if symptoms of anterior neck pain are related to cervical spine DDD and DDD vs. Mass vs. CML or his MS. Will need testing as ordered and follow up with specialist if not improved. - US CAROTID ARTERIES APRIL VAS LAB - CT NECK SOFT TISSUE WO IVCON 8. PAD (peripheral artery disease) (HCC) - ICD9: 443.9, ICD10: I73.9 - US [...] plan. See patient instructions. Noman Dean DO [address] [place] [address] documented in this encounterZanesville City Hospital06-13-2022 Instructions* Patient Instructions* Noman Dean DO - 05/13/2022 1:57 PM EDT ? Need for another upper endoscopy (EGD) documented in this encounterZanesville City Hospital06-06-2022 Miscellaneous Notes* Telephone Encounter - Vashti Jiménez LPN - 05/06/2022 10:35 AM EDT Left message to call back to schedule appt. * Telephone Encounter - Noman Dean DO - 05/06/2022 7:14 AM EDT We didn't address this concern when he was seen in the office in January, would need an appt with a provider to further evaluate / discuss Noman Dean DO * Telephone Encounter - Grace Greene RN - 04/25/2022 1:30 PM EDT Pt called in and reports he had [...] Please call and advise. documented in this encounterZanesville City Hospital06-06-2022 Miscellaneous Notes* Telephone Encounter - Jodee Plata MA - 05/06/2022 8:53 AM EDT RX INSTRUCTIONS: Patient aware RX will be sent to pharmacy. No need to notify patient. Last OV: 02/13/22 VV with PCP Last refill: 03/13/22 With 100g and 0 refills Last oarrs report completed: N/A PLEASE REVIEW ON EPIC Follow up: 05/13/22-3 Month F/U with PCP Jodee Plata MA documented in this encounterZanesville City Hospital05-09-2022 History of Present illness Narrative* Mery Samsonalejandronancie - 04/08/2022 10:57 AM EDT [facility] Refill Assessment Reviewed last OV note on 07/18/21. Last labs 01/16/22 Next clinic visit scheduled 05/22/22. Medication(s): Sprycel Therapy continues to be appropriate for disease, patient response, and medical condition. Verification of therapeutic benefit and effectiveness with current therapy. Adverse events, barriers in adherence, and side effects assessed and addressed. Will proceed with refill with no changes. [facility] Assessment - Hematology/Oncology: Assessment to use: Refill Non-Clinical Assessment: Patient confirmed: Yes Med/dose confirmed: Yes Supplies needed: No Missed doses: No Estimated days supply on hand: 6 Copay amount: 0 Payment confirmed: Yes Address confirmed: Yes Delivery method: FedEx Delivery address: [address] [place] [address] Delivery date: 04/10/2022 Patient has questions: No [...] Wolf, PharmD, BCPS, CSP, MSCS Clinical Pharmacist [facility] P: ; F: documented in this encounterZanesville City Hospital05-09-2022 History of Present illness Narrative* Mindy Harrell RN - 04/08/2022 10:41 AM EDT RADIOLOGY SERVICE PROGRESS NOTE SERVICE DATE: 04/08/2022 SERVICE TIME: 0845 PATIENT IDENTITY VERIFICATION COMPLETED USING TWO (2) METHODS: Patient confirmed name and Date of verbally. ALLERGIES REVIEWED: RK MEDICATIONS REVIEWED BY: KOMAL PROCEDURE TYPE: NM STRESS: 0.4 mg of Lexiscan was administered IV at 0848 over 10 Seconds by LILI Cortes Reversal agent used:NA LOT [id number] EXP 01/29/2025 IV SITE: IV palced by nuclear tecnologist POST EXAM PIV STATUS: Discontinued by Ventilating Engineer PATIENT DISCHARGED TO: Nuclear Medicine Department for post stress imaging A Diagnostic radioactive procedure has taken place, with no further precautions necessary other than routine body substance precautions. More information regarding radiation safety can be found usingthis link: [email or web address] 20Diagnostic%20Nuclear%20Medicine%20Procedures.pdf SIGNATURE: MINDY HARRELL RN PATIENT NAME: Otoniel Victoria DATE: 04/08/22 TIME: 10:41 AM documented in this encounterZanesville City Hospital05-09-2022 History of Present illness Narrative* Dianne Sanchez RT(R) - 04/08/2022 7:30 AM EDT RADIOLOGY SERVICE PROGRESS NOTE SERVICE DATE: 04/08/2022 [...] visit the National Kid[employer] website at kidney.org/professionals/kdoqi/gfr_calculator. eGFR- Date Value Ref Range Status 01/16/2022 >60 Final P.O.C.T. RESULTS: N/A April 08, [address] PERFORMED: No IV SITE: Ambulatory: A peripheral IV was started in the Right antecubital site with a Angio cath: 22 gauge. POST EXAM PIV STATUS: Discontinued PROCEDURE TYPE: NM Stress: 12.2mCi [id number] was administered IV for Rest Imaging at 07:40 by miguel Brunson. 33.2 mCi [id number] was administered IV for Stress Imaging at 08:48 by miguel Brunson. ADMINISTRATION TIME: PATIENT DISCHARGED TO: Ambulatory patient, left NM department area. A Diagnostic radioactive procedure has taken place, with no further precautions necessary other than routine body substance precautions. More information regarding radiation safety can be found usingthis link: [email or web address] 20Diagnostic%20Nuclear%20Medicine%20Procedures.pdf SIGNATURE: RT Nannette(Colten) PATIENT NAME: Otoniel Victoria DATE: April 08, 2022 TIME: 09:45 AM PAGER/CONTACT #: documented in this encounterZanesville City Hospital05-05-2022 History of Present illness Narrative* Vashti Heller Ma - 04/04/2022 10:06 AM EDT PT ASSESSMENT - CASTING ROOM Otoniel presents for Application of brace. Applied Laura and Price modabber wrist braces to Bilateral wrist. Patient tolerated well. Patient has been instructed in Care and proper application of brace. Patient verbalized understanding. Vashti Heller Ma * Jersey Cole MD - 04/04/2022 9:42 AM EDT Associated Order(s): Additional Injections: L elbow joint Jersey Cole MD Department of Orthopaedics Orthopaedics [facility] [address] Dept: [phone] Dept April 04, 2022 Consultation requested by [...] months, L>R. He is right hand dominant, doesnot work outside the home. He does wear tennis elbow straps bilaterally and he reports those do help him. ASSESSMENT: M25.521, M25.522 Bilateral elbow joint pain M77.11, M77.12 Lateral epicondylitis of both elbows PLAN: Discussed stretching, icing, bracing, medicine and possible cortisone injection. He would like an injection today. FOLLOW UP INSTRUCTIONS: As needed Mr. Otoniel Victoria was advised as to contrast therapies and/or to take analgesics/anti-inflammatories as needed and all contraindications were reviewed. OBJECTIVE: Mr. Otoniel Victoria is a pleasant 51 year old in [...] lateral epicondylitis Informed Consent Consent Obtained: Verbal [place] Protocol A moment to CARE was completed. [...] be seen in association with olecranon bursitis. Chemical Weigher: YOBANY Transcribe Date/Time: Apr 02 2022 6:04P [...] relevant examinations available for comparison within the [facility]. RESULT: 2 Views of the [...] hyperactivity disorder) Arrhythmia Arthritis Bipolar 1 disorder ([facility]) Dr. Easley [facility] Chronic obstructive pulmonary disease ([facility]) 04/19/2019 Chronic obstructive pulmonary disease ([facility]) CML (chronic myeloid leukemia) ([facility]) 02/13/2015 Dr. 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 Vasquez Neurologist Multiple sclerosis ([facility]) 10/2005 Dr. Mauricio Vasquez Neurologist Osteoarthritis of left knee 01/2022 Other symptoms involving abdomen and pelvis(789.9) Palpitations Schizophrenia ([facility]) Dr. Easley [facility] Snoring Substance abuse rule out 03/15/2015 [...] inhaler INHALE 2 PUFFS INSTRUCTED EVERY FOUR HOURSAS NEEDED FOR WHEEZING / SHORTNESS OF BREATH [...] (no depression, anxiety) REFERRING PHYSICIAN: Mr. Otoniel Victoria was referred to me for consultation by the following physician. This consultation note will be sent to the following physician by either mail or electronic medical record. Noman Dean [address] [facility] [address] Noman Dean DO [address] [facility] [address] Jersey Cole MD documented in this encounterZanesville City Hospital05-03-2022 History of Present illness Narrative* RT Zion(R) - 04/02/2022 2:00 PM EDT Radiology Service Progress Note PATIENT NAME: Otoneil Victoria DATE OF SERVICE: April 02, 2022 TIME: 2:08 PM PATIENT IDENTITY VERIFICATION COMPLETED USING TWO (2) IDENTIFIERS: Name and Date of confirmedby patient verbally. FALL SCREENING: Has the patient had 2 falls in the last year or 1 fall with injury or currently using an Ambulatory Assistive Device (Walker, Cane, Wheelchair, Crutches, etc.)? No PATIENT GENDER DATA: Male PATIENT RELEVANT IMPLANT DATA REVIEWED: Yes RADIOLOGY DEPARTMENT: General X-ray: Exam(s) Completed: Upper Extremity X- Ray(s): Elbow, bilateral PERIPHERAL IV DATA: Not applicable SIGNED BY: RT Zion(R) April 02, 2022 2:08 PM documented in this encounterZanesville City Hospital04-15-2022 Miscellaneous Notes* Telephone Encounter - Edgar Longoria APRN.CNP - 03/15/2022 1:35 PM EDT The following approved medication requests have been [...] C-II COLE: No Authorizing Provider: EDGAR LONGORIA APRN.CNP PDMP website checked and validated. All prescriptions have been APPROPRIATELY filled. No suspiciousactivity was identified. 03/15/2022 by Edgar Longoria CNP. * Telephone Encounter - Sally Garcia LPN - 03/15/2022 1:26 PM EDT Patient has been identified by name and [...] you. Sally Garcia LPN documented in this encounterZanesville City Hospital04-13-2022 Miscellaneous Notes* Telephone Encounter - Christina Verma LPN - 03/13/2022 2:01 PM EDT Spoke with pt and information listed below given. Pt verbalizes understanding. Christina Verma LPN * Telephone Encounter - Ny Rodriguez APRN.LALO - 03/12/2022 4:10 PM EDT Results of upper GI with small bowel follow-through impression unremarkable upper GI and small bowel follow-through examination. Ny * Telephone Encounter - Jade Morataya LPN - 03/11/2022 4:54 PM EDT Report on Ny Rodriguez's desk for review. * Telephone Encounter - Abeba Pettit RN - 03/11/2022 4:46 PM EDT Patient calling to ask if Ny Rodriguez received his upper GI and small bowel test results from [facility] yet. Please advise patient when able. Thank you. Abeba Pettit RN documented in this encounterZanesville City Hospital04-13-2022 Miscellaneous Notes* Telephone Encounter - Christina Verma LPN - 03/13/2022 8:32 AM EDT Patient has been identified by name and [...] you. Christina Verma LPN documented in this encounterZanesville City Hospital04-12-2022 History of Present illness Narrative* Martha Pat RN - 03/12/2022 9:48 AM EDT [facility](s[facility] for sprycel from Dr. Heaton's office. Benefits investigation was conducted, indicating that a prior authorization is required. TERESITA was approved with details listed below. Plan Name: [employer] Plan Agent/Jade: Matilde from the prior authorization department Phone/Fax: TERESITA reference number: [id number] Approval Dates: 12/01/2021 - 03/12/2023 Prescriptions will now be processed through [facility] for determination of next steps. Martha Pat RN documented in this encounterZanesville City Hospital04-11-2022 Miscellaneous Notes* Telephone Encounter - Vashti Heller Ma - 03/11/2022 12:36 PM EDT Patient called and rescheduled appointment on 04/04/22. * Telephone Encounter - Rody Augustine Ma - 03/11/2022 9:35 AM EDT I left another message for patient to contact office to reschedule. * Telephone Encounter - Rody Augustine Ma - 03/08/2022 2:10 PM EDT I called and left a message for patient to contact office about appointment on 03/11/22. Dr. Cole will be out of the office for a meeting in [place] at patient appointment time. Patient will need to reschedule. documented in this encounterZanesville City Hospital04-04-2022 Miscellaneous Notes* Telephone Encounter - Jade Morataya LPN - 03/04/2022 11:18 AM EDT PATIENT NOTIFIED OF SAME. Order faxed to [facility] per patient request. * Telephone Encounter - Ny Rodriguez APRN.CNP - 03/01/2022 4:52 PM EDT Please call patient and inform I have ordered again upper GI with small bowel follow through. Thanks Ny Rodriguez APRN.CNP * Telephone Encounter - Huyen Evans RN - 02/21/2022 4:18 PM EDT Patient calls and states that abdominal pain is in both upper and lower regions, however pain is more so on the right side. Patient reports that he is nauseous quite a bit of the time. Huyen Evans RN * Telephone Encounter - Jade Morataya LPN - 02/21/2022 1:24 PM EDT LEFT MESSAGE FOR PATIENT TO CALL OFFICE. * Telephone Encounter - Ny Rodriguez APRN.CNP - 02/21/2022 11:39 AM EDT Please call patient and verify where the pain is located. Is he still vomiting and nauseated throughout the day? Thanks Ny Rodriguez APRN.CNP * Telephone Encounter - Paty Abdalla RN - 02/18/2022 9:23 AM EDT Patient calls to update provider since starting on Carafate 3 times daily. Patient reports his symptoms are not improving at all. He reports that he is having stomach pain/discomfort with all meals and beverages no matter what it is. He reports that he is following the recommended diet/instructionsfrom last appointment and is taking omeprazole 40 mg daily along with the Carafate 3 times daily. Patient asking what else he can do for symptoms. Please review and advise, Paty Abdalla RN documented in this encounterZ[facility]04[facility] Instructions* Patient Instructions* Shyann Sánchez - 03/04/2022 9:32 AM EDT Continue with local wound care until scabs develop Follow-up as needed documented in this encounterZanesville [facility]04-04-[facility] History of Present illness Narrative* Shyann Christineaman - 03/04/2022 9:29 AM EDT Follow up podiatric office visit for: Chief [...] 4.9 4.3 - 5.6 % Final Comment: Citizen [place] Diabetes Association guidelines indicate that patients with HgbA1c in the range 5.7-6.4% are at increased risk for development of diabetes, and intervention by lifestyle modification may be beneficial. HgbA1c greater or equal to 6.5% is considered diagnostic of diabetes. PCP: Noman Dean, PAST MEDICAL HISTORY Diagnosis Date ADHD (attention deficit hyperactivity disorder) Arrhythmia Arthritis Bipolar 1 disorder ([facility]) Dr. Easley [facility] Chronic obstructive pulmonary disease ([facility]) 04/19/2019 Chronic obstructive pulmonary disease ([facility]) CML (chronic myeloid leukemia) ([facility]) 02/13/2015 Dr. 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 Vasquez Neurologist Multiple sclerosis ([facility]) 10/2005 Dr. Mauricio Vasquez Neurologist Osteoarthritis of left knee 01/2022 Other symptoms involving abdomen and pelvis(789.9) Palpitations Schizophrenia ([facility]) Dr. E[facility] [...] inhaler INHALE 2 PUFFS INSTRUCTED EVERY FOUR HOURSAS NEEDED FOR WHEEZING / SHORTNESS OF BREATH [...] elected to let it dissolve. F/u prn Shaynn Sánchez DPM * Nancy Sanchez RN - 03/04/2022 9:12 AM EDT AMB ROOMING INTAKE FLOWSHEET DATA Risk Screening Do you have concerns about personal safety or safety in the home?: No Patient presents with: Left Foot - Follow Up, Nail Fungus Right Foot - Follow Up, Nail Fungus Patient is here to follow up post total nail matrixectomy, toenails 2-5, B/L feet. Denies pain. DOS: 02/18/22 documented in this encounterZanesville City Hospital04-01-2022 Miscellaneous Notes* Telephone Encounter - Huyen Evans RN - 03/01/2022 10:42 AM EDT Patient notified of results and provider's instructions. Patient verbalizes understanding. Huyen Evans RN * Telephone Encounter - Vasthi Jiménez LPN - 03/01/2022 10:06 AM EDT Left message to return call. * Telephone Encounter - Noman Dean DO - 03/01/2022 8:25 AM EDT Please inform patient that his ECHO shows [...] years Noman Dean DO documented in this encounterZanesville City Hospital03-31-2022 Miscellaneous Notes* Telephone Encounter - Jade Morataya LPN - 02/28/2022 10:16 AM EDT Patient phones requesting refills as follows: Pending Prescriptions Disp Refills LINZESS 72 MCG CAPSULE 30 capsule 5 Sig: Take first thing in the morning, 30 minutes before eating anything.Swallow whole; DO NOT crushor chew. COLE: No Please review and advise. Jade Morataya LPN documented in this encounterZanesville City Hospital03-21-2022 NoteHNO ID: [id number] Author: Bairon Miguel RN Service: ? Author Type: Registered Nurse Type: Nursing Progress Note Filed: 02/18/2022 4:23 PM Note Text: 1552 tiffanie tourniquet started / intermittent. Ended 1622.[facility] 01-22-2022 History of Present illness Narrative* Keira Altman RT([place]) - 01/22/2022 9:30 AM EST Radiology Service Progress Note PATIENT NAME: Otoniel Victoria DATE OF SERVICE: January 22, 2022 TIME: 9:32 AM PATIENT IDENTITY VERIFICATION COMPLETED USING TWO (2) IDENTIFIERS: Name and Date of confirmedby patient verbally. FALL SCREENING: Has the patient had 2 falls in the last year or 1 fall with injury or currently using an Ambulatory Assistive Device (Walker, Cane, Wheelchair, Crutches, etc.)? No PATIENT GENDER DATA: Male PATIENT RELEVANT IMPLANT DATA REVIEWED: Yes RADIOLOGY DEPARTMENT: General X-ray: Exam(s) Completed: Chest X-Ray PERIPHERAL IV DATA: Not applicable SIGNED BY: RT Zion([place]) January 22, 2022 9:32 AM documented in this encounterZanesville City Hospital02-22-2022 History of Present illness Narrative* Keira Altman RT([place]) - 01/22/2022 9:20 AM EST Radiology Service Progress Note PATIENT NAME: Otoniel Victoria DATE OF SERVICE: January 22, 2022 TIME: 9:14 AM PATIENT IDENTITY VERIFICATION COMPLETED USING TWO (2) IDENTIFIERS: Name and Date of confirmedby patient verbally. FALL SCREENING: Has the patient had 2 falls in the last year or 1 fall with injury or currently using an Ambulatory Assistive Device (Walker, Cane, Wheelchair, Crutches, etc.)? No PATIENT GENDER DATA: Male PATIENT RELEVANT IMPLANT DATA REVIEWED: Yes RADIOLOGY DEPARTMENT: General X-ray: Exam(s) Completed: Lower Extremity X- Ray(s): Knee, AP / Lat / Tunne / Merchant Left and Wt. Bearing PERIPHERAL IV DATA: Not applicable SIGNED BY: RT Zion(R) January 22, 2022 9:14 AM documented in this encounterZanesville City Hospital03-16-2021 History of Present illness Narrative* Tatyana Herron (Rt), Tech - 02/13/2021 2:30 PM EDT Radiology Service Progress Note PATIENT NAME: Otoniel Victoria DATE OF SERVICE: February 13, 2021 TIME: 2:53 PM PATIENT IDENTITY VERIFICATION COMPLETED USING TWO (2) IDENTIFIERS: Name and Date of confirmedby patient verbally. FALL SCREENING: Has the patient had 2 falls in the last year or 1 fall with injury or currently using an Ambulatory Assistive Device (Walker, Cane, Wheelchair, Crutches, etc.)? No PATIENT GENDER DATA: Male PATIENT RELEVANT IMPLANT DATA REVIEWED: Not Applicable RADIOLOGY DEPARTMENT: General X-ray: Exam(s) Completed: Spine X-Ray(s): Cervical AP / LAT / OBL PERIPHERAL IV DATA: Not applicable SIGNED BY: RT Erica February 13, 2021 2:53 PM documented in this encounterZanesville City Hospital10-27-2020 History of Present illness Narrative* Keira Altman (Rt), Tech - 09/26/2020 8:50 AM EDT Radiology Service Progress Note PATIENT NAME: Otoniel Victoria DATE OF SERVICE: September 26, 2020 TIME: 8:44 AM PATIENT IDENTITY VERIFICATION COMPLETED USING TWO (2) IDENTIFIERS: Name and Date of confirmedby patient verbally. FALL SCREENING: Has the patient had 2 falls in the last year or 1 fall with injury or currently using an Ambulatory Assistive Device (Walker, Cane, Wheelchair, Crutches, etc.)? No PATIENT GENDER DATA: Male PATIENT RELEVANT IMPLANT DATA REVIEWED: Yes RADIOLOGY DEPARTMENT: General X-ray: Exam(s) Completed: Chest X-Ray PERIPHERAL IV DATA: Not applicable SIGNED BY: RT Zion September 26, 2020 8:44 AM documented in this encounterZanesville City Hospital05-01-2019 History of Past illness Narrative* Problem Noted Date Resolved Date COPD with chronic bronchitis 03/31/2019 Screen for colon cancer 08/05/2018 01/18/20 22 Overview: Added automatically from request for surgery [id number] Chronic GERD 02/07/2016 02/07/2016 Special screening for [...] of this encounter (statuses as of 02/27/2022) [facility] of [facility] illness Narrative* Problem Noted Date Resolved Date COPD with chronic bronchitis 03/31/2019 Screen for colon cancer 08/05/2018 01/18/20 22 Overview: Added automatically from request for surgery [id number] Chronic GERD 02/07/2016 02/07/2016 Special screening for [...] of this encounter (statuses as of 02/28/2022) [facility] illness Narrative* Problem Noted Date Resolved Date COPD with chronic bronchitis 03/31/2019 Screen for colon cancer 08/05/2018 01/18/20 22 Overview: Added automatically from request for surgery [id number] Chronic GERD 02/07/2016 02/07/2016 Special screening for [...] of this encounter (statuses as of 03/01/2022) [facility] Narrative* Problem Noted Date Resolved Date COPD with chronic bronchitis 03/31/2019 Screen for colon cancer 08/05/2018 01/18/20 22 Overview: Added automatically from request for surgery [id number] Chronic GERD 02/07/2016 02/07/2016 Special screening for [...] of this encounter (statuses as of 03/04/2022) [facility] Narrative* Problem Noted Date Resolved Date COPD with chronic bronchitis 03/31/2019 Screen for colon cancer 08/05/2018 01/18/20 22 Overview: Added automatically from request for surgery [id number] Chronic GERD 02/07/2016 02/07/2016 Special screening for [...] of this encounter (statuses as of 03/04/2022) [facility] Narrative* Problem Noted Date Resolved Date COPD with chronic bronchitis 03/31/2019 Screen for colon cancer 08/05/2018 01/18/20 22 Overview: Added automatically from request for surgery [id number] Chronic GERD 02/07/2016 02/07/2016 Special screening for [...] of this encounter (statuses as of 03/11/2022) [facility] Narrative* Problem Noted Date Resolved Date COPD with chronic bronchitis 03/31/2019 Screen for colon cancer 08/05/2018 01/18/20 22 Overview: Added automatically from request for surgery [id number] Chronic GERD 02/07/2016 02/07/2016 Special screening for [...] of this encounter (statuses as of 03/12/2022) [facility] Narrative* Problem Noted Date Resolved Date COPD with chronic bronchitis 03/31/2019 Screen for colon cancer 08/05/2018 01/18/20 22 Overview: Added automatically from request for surgery [id number] Chronic GERD 02/07/2016 02/07/2016 Special screening for [...] of this encounter (statuses as of 03/13/2022) [facility] Narrative* Problem Noted Date Resolved Date COPD with chronic bronchitis 03/31/2019 Screen for colon cancer 08/05/2018 01/18/20 22 Overview: Added automatically from request for surgery [id number] Chronic GERD 02/07/2016 02/07/2016 Special screening for [...] of this encounter (statuses as of 03/13/2022) [facility] Narrative* Problem Noted Date Resolved Date COPD with chronic bronchitis 03/31/2019 Screen for colon cancer 08/05/2018 01/18/20 22 Overview: Added automatically from request for surgery [id number] Chronic GERD 02/07/2016 02/07/2016 Special screening for [...] of this encounter (statuses as of 03/15/2022) [facility] Narrative* Problem Noted Date Resolved Date COPD with chronic bronchitis 03/31/2019 Screen for colon cancer 08/05/2018 01/18/20 22 Overview: Added automatically from request for surgery [id number] Chronic GERD 02/07/2016 02/07/2016 Special screening for [...] of this encounter (statuses as of 04/03/2022) [facility] Narrative* Problem Noted Date Resolved Date COPD with chronic bronchitis 03/31/2019 Screen for colon cancer 08/05/2018 01/18/20 22 Overview: Added automatically from request for surgery [id number] Chronic GERD 02/07/2016 02/07/2016 Special screening for [...] of this encounter (statuses as of 04/04/2022) [facility]* Problem Noted Date Resolved Date COPD with chronic bronchitis 03/31/2019 Screen for colon cancer 08/05/2018 01/18/20 22 Overview: Added automatically from request for surgery [id number] Chronic GERD 02/07/2016 02/07/2016 Special screening for [...] of this encounter (statuses as of 04/04/2022) [facility]* Problem Noted Date Resolved Date COPD with chronic bronchitis 03/31/2019 Screen for colon cancer 08/05/2018 01/18/20 22 Overview: Added automatically from request for surgery [id number] Chronic GERD 02/07/2016 02/07/2016 Special screening for [...] of this encounter (statuses as of 04/08/2022) [facility]* Problem Noted Date Resolved Date COPD with chronic bronchitis 03/31/2019 Screen for colon cancer 08/05/2018 01/18/20 22 Overview: Added automatically from request for surgery [id number] Chronic GERD 02/07/2016 02/07/2016 Special screening for [...] of this encounter (statuses as of 04/08/2022) [facility]* Problem Noted Date Resolved Date COPD with chronic bronchitis 03/31/2019 Screen for colon cancer 08/05/2018 01/18/20 22 Overview: Added automatically from request for surgery [id number] Chronic GERD 02/07/2016 02/07/2016 Special screening for [...] of this encounter (statuses as of 04/09/2022) [facility]* Problem Noted Date Resolved Date COPD with chronic bronchitis 03/31/2019 Screen for colon cancer 08/05/2018 01/18/20 22 Overview: Added automatically from request for surgery [id number] Chronic GERD 02/07/2016 02/07/2016 Special screening for [...] of this encounter (statuses as of 04/09/2022) [facility]* Problem Noted Date Resolved Date COPD with chronic bronchitis 03/31/2019 Screen for colon cancer 08/05/2018 01/18/20 22 Overview: Added automatically from request for surgery [id number] Chronic GERD 02/07/2016 02/07/2016 Special screening for [...] of this encounter (statuses as of 04/16/2022) [facility]* Problem Noted Date Resolved Date COPD with chronic bronchitis 03/31/2019 Screen for colon cancer 08/05/2018 01/18/20 22 Overview: Added automatically from request for surgery [id number] Chronic GERD 02/07/2016 02/07/2016 Special screening for [...] of this encounter (statuses as of 05/06/2022) [facility]* Problem Noted Date Resolved Date COPD with chronic bronchitis 03/31/2019 Screen for colon cancer 08/05/2018 01/18/20 22 Overview: Added automatically from request for surgery [id number] Chronic GERD 02/07/2016 02/07/2016 Special screening for [...] of this encounter (statuses as of 05/06/2022) [facility]* Problem Noted Date Resolved Date COPD with chronic bronchitis 03/31/2019 Screen for colon cancer 08/05/2018 01/18/20 22 Overview: Added automatically from request for surgery [id number] Chronic GERD 02/07/2016 02/07/2016 Special screening for [...] of this encounter (statuses as of 05/13/2022) [facility]* Problem Noted Date Resolved Date COPD with chronic bronchitis 03/31/2019 Screen for colon cancer 08/05/2018 01/18/20 22 Overview: Added automatically from request for surgery [id number] Chronic GERD 02/07/2016 02/07/2016 Special screening for [...] of this encounter (statuses as of 05/14/2022) [facility]* Problem Noted Date Resolved Date COPD with chronic bronchitis 03/31/2019 Screen for colon cancer 08/05/2018 01/18/20 22 Overview: Added automatically from request for surgery [id number] Chronic GERD 02/07/2016 02/07/2016 Special screening for [...] of this encounter (statuses as of 05/15/2022) [facility] Problem Noted Date Resolved Date COPD with chronic bronchitis 03/31/2019 Screen for colon cancer 08/05/2018 01/18/20 22 Overview: Added automatically from request for surgery [id number] Chronic GERD 02/07/2016 02/07/2016 Special screening for [...] of this encounter (statuses as of 05/15/2022) [facility] Problem Noted Date Resolved Date COPD with chronic bronchitis 03/31/2019 Screen for colon cancer 08/05/2018 01/18/20 22 Overview: Added automatically from request for surgery [id number] Chronic GERD 02/07/2016 02/07/2016 Special screening for [...] of this encounter (statuses as of 05/16/2022) [facility] Problem Noted Date Resolved Date COPD with chronic bronchitis 03/31/2019 Screen for colon cancer 08/05/2018 01/18/20 22 Overview: Added automatically from request for surgery [id number] Chronic GERD 02/07/2016 02/07/2016 Special screening for [...] of this encounter (statuses as of 05/18/2022) [facility] Problem Noted Date Resolved Date COPD with chronic bronchitis 03/31/2019 Screen for colon cancer 08/05/2018 01/18/20 22 Overview: Added automatically from request for surgery [id number] Chronic GERD 02/07/2016 02/07/2016 Special screening for [...] of this encounter (statuses as of 05/21/2022) [facility] Problem Noted Date Resolved Date COPD with chronic bronchitis 03/31/2019 Screen for colon cancer 08/05/2018 01/18/20 22 Overview: Added automatically from request for surgery [id number] Chronic GERD 02/07/2016 02/07/2016 Special screening for [...] of this encounter (statuses as of 05/22/2022) [facility] Problem Noted Date Resolved Date COPD with chronic bronchitis 03/31/2019 Screen for colon cancer 08/05/2018 01/18/20 22 Overview: Added automatically from request for surgery [id number] Chronic GERD 02/07/2016 02/07/2016 Special screening for [...] of this encounter (statuses as of 05/31/2022) [facility] Problem Noted Date Resolved Date COPD with chronic bronchitis 03/31/2019 Screen for colon cancer 08/05/2018 01/18/20 22 Overview: Added automatically from request for surgery [id number] Chronic GERD 02/07/2016 02/07/2016 Special screening for [...] of this encounter (statuses as of 06/05/2022) [facility] Problem Noted Date Resolved Date COPD with chronic bronchitis 03/31/2019 Screen for colon cancer 08/05/2018 01/18/20 22 Overview: Added automatically from request for surgery [id number] Chronic GERD 02/07/2016 02/07/2016 Special screening for [...] of this encounter (statuses as of 06/10/2022) [facility] Problem Noted Date Resolved Date COPD with chronic bronchitis 03/31/2019 Screen for colon cancer 08/05/2018 01/18/20 22 Overview: Added automatically from request for surgery [id number] Chronic GERD 02/07/2016 02/07/2016 Special screening for [...] of this encounter (statuses as of 06/13/2022) [facility] Problem Noted Date Resolved Date COPD with chronic bronchitis 03/31/2019 Screen for colon cancer 08/05/2018 01/18/20 22 Overview: Added automatically from request for surgery [id number] Chronic GERD 02/07/2016 02/07/2016 Special screening for [...] of this encounter (statuses as of 07/02/2022) [facility] Problem Noted Date Resolved Date COPD with chronic bronchitis 03/31/2019 Screen for colon cancer 08/05/2018 01/18/20 22 Overview: Added automatically from request for surgery [id number] Chronic GERD 02/07/2016 02/07/2016 Special screening for [...] of this encounter (statuses as of 07/02/2022) [facility] Problem Noted Date Resolved Date COPD with chronic bronchitis 03/31/2019 Screen for colon cancer 08/05/2018 01/18/20 22 Overview: Added automatically from request for surgery [id number] Chronic GERD 02/07/2016 02/07/2016 Special screening for [...] of this encounter (statuses as of 07/03/2022) [facility] Problem Noted Date Resolved Date COPD with chronic bronchitis 03/31/2019 Screen for colon cancer 08/05/2018 01/18/20 22 Overview: Added automatically from request for surgery [id number] Chronic GERD 02/07/2016 02/07/2016 Special screening for [...] of this encounter (statuses as of 07/03/2022) [facility] Problem Noted Date Resolved Date COPD with chronic bronchitis 03/31/2019 Screen for colon cancer 08/05/2018 01/18/20 22 Overview: Added automatically from request for surgery [id number] Chronic GERD 02/07/2016 02/07/2016 Special screening for [...] of this encounter (statuses as of 07/10/2022) [facility] Problem Noted Date Resolved Date COPD with chronic bronchitis 03/31/2019 Screen for colon cancer 08/05/2018 01/18/20 22 Overview: Added automatically from request for surgery [id number] Chronic GERD 02/07/2016 02/07/2016 Special screening for [...] of this encounter (statuses as of 07/18/2022) [facility] Problem Noted Date Resolved Date COPD with chronic bronchitis 03/31/2019 Screen for colon cancer 08/05/2018 01/18/20 22 Overview: Added automatically from request for surgery [id number] Chronic GERD 02/07/2016 02/07/2016 Special screening for [...] of this encounter (statuses as of 07/24/2022) [facility] Problem Noted Date Resolved Date COPD with chronic bronchitis 03/31/2019 Screen for colon cancer 08/05/2018 01/18/20 22 Overview: Added automatically from request for surgery [id number] Chronic GERD 02/07/2016 02/07/2016 Special screening for [...] of this encounter (statuses as of 07/25/2022) [facility] Problem Noted Date Resolved Date COPD with chronic bronchitis 03/31/2019 Screen for colon cancer 08/05/2018 01/18/20 22 Overview: Added automatically from request for surgery [id number] Chronic GERD 02/07/2016 02/07/2016 Special screening for [...] of this encounter (statuses as of 07/26/2022) [facility] Problem Noted Date Resolved Date COPD with chronic bronchitis 03/31/2019 Screen for colon cancer 08/05/2018 01/18/20 Overview: Added automatically from request for surgery [id number] Chronic GERD 02/07/2016 02/07/2016 Special screening for [...] of this encounter (statuses as of 07/31/2022) [facility] Problem Noted Date Resolved Date COPD with chronic bronchitis 03/31/2019 Screen for colon cancer 08/05/2018 01/18/20 22 Overview: Added automatically from request for surgery [id number] Chronic GERD 02/07/2016 02/07/2016 Special screening for [...] of this encounter (statuses as of 08/06/2022) [facility] Problem Noted Date Resolved Date COPD with chronic bronchitis 03/31/2019 Screen for colon cancer 08/05/2018 01/18/20 22 Overview: Added automatically from request for surgery [id number] Chronic GERD 02/07/2016 02/07/2016 Special screening for [...] of this encounter (statuses as of 08/07/2022) [facility] Problem Noted Date Resolved Date COPD with chronic bronchitis 03/31/2019 Screen for colon cancer 08/05/2018 01/18/20 22 Overview: Added automatically from request for surgery [id number] Chronic GERD 02/07/2016 02/07/2016 Special screening for [...] of this encounter (statuses as of 08/13/2022) [facility] Problem Noted Date Resolved Date COPD with chronic bronchitis 03/31/2019 Screen for colon cancer 08/05/2018 01/18/20 22 Overview: Added automatically from request for surgery [id number] Chronic GERD 02/07/2016 02/07/2016 Special screening for [...] of this encounter (statuses as of 08/14/2022) [facility] Problem Noted Date Resolved Date COPD with chronic bronchitis 03/31/2019 Screen for colon cancer 08/05/2018 01/18/20 22 Overview: Added automatically from request for surgery [id number] Chronic GERD 02/07/2016 02/07/2016 Special screening for [...] of this encounter (statuses as of 08/14/2022) [facility] Problem Noted Date Resolved Date COPD with chronic bronchitis 03/31/2019 Screen for colon cancer 08/05/2018 01/18/20 22 Overview: Added automatically from request for surgery [id number] Chronic GERD 02/07/2016 02/07/2016 Special screening for [...] of this encounter (statuses as of 08/15/2022) [facility] History of Past illness Narrative* Problem Noted Date Resolved Date COPD with chronic bronchitis 03/31/2019 Screen for colon cancer 08/05/2018 01/18/20 22 Overview: Added automatically from request for surgery [id number] Chronic GERD 02/07/2016 02/07/2016 Special screening for [...] of this encounter (statuses as of 08/19/2022) [facility] History of Past illness Narrative* Problem Noted Date Resolved Date COPD with chronic bronchitis 03/31/2019 Screen for colon cancer 08/05/2018 01/18/20 22 Overview: Added automatically from request for surgery [id number] Chronic GERD 02/07/2016 02/07/2016 Special screening for [...] of this encounter (statuses as of 08/23/2022) [facility] History of Past illness Narrative* Problem Noted Date Resolved Date COPD with chronic bronchitis 03/31/2019 Screen for colon cancer 08/05/2018 01/18/20 22 Overview: Added automatically from request for surgery [id number] Chronic GERD 02/07/2016 02/07/2016 Special screening for [...] of this encounter (statuses as of 08/28/2022) [facility] History of Past illness Narrative* Problem Noted Date Resolved Date COPD with chronic bronchitis 03/31/2019 Screen for colon cancer 08/05/2018 01/18/20 22 Overview: Added automatically from request for surgery [id number] Chronic GERD 02/07/2016 02/07/2016 Special screening for [...] of this encounter (statuses as of 09/02/2022) [facility] History of Past illness Narrative* Problem Noted Date Resolved Date COPD with chronic bronchitis 03/31/2019 Screen for colon cancer 08/05/2018 01/18/20 22 Overview: Added automatically from request for surgery [id number] Chronic GERD 02/07/2016 02/07/2016 Special screening for [...] of this encounter (statuses as of 09/03/2022) [facility] History of Past illness Narrative* Problem Noted Date Resolved Date COPD with chronic bronchitis 03/31/2019 Screen for colon cancer 08/05/2018 01/18/20 22 Overview: Added automatically from request for surgery [id number] Chronic GERD 02/07/2016 02/07/2016 Special screening for [...] of this encounter (statuses as of 09/09/2022) [facility] History of Past illness Narrative* Problem Noted Date Resolved Date COPD with chronic bronchitis 03/31/2019 Screen for colon cancer 08/05/2018 01/18/20 22 Overview: Added automatically from request for surgery [id number] Chronic GERD 02/07/2016 02/07/2016 Special screening for [...] of this encounter (statuses as of 09/16/2022) [facility] History of Past illness Narrative* Problem Noted Date Resolved Date COPD with chronic bronchitis 03/31/2019 Screen for colon cancer 08/05/2018 01/18/20 22 Overview: Added automatically from request for surgery [id number] Chronic GERD 02/07/2016 02/07/2016 Special screening for [...] of this encounter (statuses as of 09/20/2022) [facility] History of Past illness Narrative* Problem Noted Date Resolved Date COPD with chronic bronchitis 03/31/2019 Screen for colon cancer 08/05/2018 01/18/20 22 Overview: Added automatically from request for surgery [id number] Chronic GERD 02/07/2016 02/07/2016 Special screening for [...] of this encounter (statuses as of 09/25/2022) [facility] History of Past illness Narrative* Problem Noted Date Resolved Date COPD with chronic bronchitis 03/31/2019 Screen for colon cancer 08/05/2018 01/18/20 22 Overview: Added automatically from request for surgery [id number] Chronic GERD 02/07/2016 02/07/2016 Special screening for [...] of this encounter (statuses as of 10/03/2022) [facility] History of Past illness Narrative* Problem Noted Date Resolved Date COPD with chronic bronchitis 03/31/2019 Screen for colon cancer 08/05/2018 01/18/20 22 Overview: Added automatically from request for surgery [id number] Chronic GERD 02/07/2016 02/07/2016 Special screening for [...] of this encounter (statuses as of 10/04/2022) [facility] History of Past illness Narrative* Problem Noted Date Resolved Date COPD with chronic bronchitis 03/31/2019 Screen for colon cancer 08/05/2018 01/18/20 22 Overview: Added automatically from request for surgery [id number] Chronic GERD 02/07/2016 02/07/2016 Special screening for [...] of this encounter (statuses as of 10/10/2022) [facility] History of Past illness Narrative* Problem Noted Date Resolved Date COPD with chronic bronchitis 03/31/2019 Screen for colon cancer 08/05/2018 01/18/20 22 Overview: Added automatically from request for surgery [id number] Chronic GERD 02/07/2016 02/07/2016 Special screening for [...] of this encounter (statuses as of 10/14/2022) [facility] History of Past illness Narrative* Problem Noted Date Resolved Date COPD with chronic bronchitis 03/31/2019 Screen for colon cancer 08/05/2018 01/18/20 22 Overview: Added automatically from request for surgery [id number] Chronic GERD 02/07/2016 02/07/2016 Special screening for [...] of this encounter (statuses as of 10/16/2022) [facility] History of Past illness Narrative* Problem Noted Date Resolved Date COPD with chronic bronchitis 03/31/2019 Screen for colon cancer 08/05/2018 01/18/20 22 Overview: Added automatically from request for surgery [id number] Chronic GERD 02/07/2016 02/07/2016 Special screening for [...] of this encounter (statuses as of 10/22/2022) [facility] History of Past illness Narrative* Problem Noted Date Resolved Date COPD with chronic bronchitis 03/31/2019 Screen for colon cancer 08/05/2018 01/18/20 22 Overview: Added automatically from request for surgery [id number] Chronic GERD 02/07/2016 02/07/2016 Special screening for [...] of this encounter (statuses as of 10/23/2022) [facility] History of Past illness Narrative* Problem Noted Date Resolved Date COPD with chronic bronchitis 03/31/2019 Screen for colon cancer 08/05/2018 01/18/20 22 Overview: Added automatically from request for surgery [id number] Chronic GERD 02/07/2016 02/07/2016 Special screening for [...] of this encounter (statuses as of 11/12/2022) [facility] History of Past illness Narrative* Problem Noted Date Resolved Date COPD with chronic bronchitis 03/31/2019 Screen for colon cancer 08/05/2018 01/18/20 22 Overview: Added automatically from request for surgery [id number] Chronic GERD 02/07/2016 02/07/2016 Special screening for [...] of this encounter (statuses as of 11/19/2022) [facility] History of Past illness Narrative* Problem Noted Date Resolved Date COPD with chronic bronchitis 03/31/2019 Screen for colon cancer 08/05/2018 01/18/20 22 Overview: Added automatically from request for surgery [id number] Chronic GERD 02/07/2016 02/07/2016 Special screening for [...] of this encounter (statuses as of 11/20/2022) [facility] History of Past illness Narrative* Problem Noted Date Resolved Date COPD with chronic bronchitis 03/31/2019 Screen for colon cancer 08/05/2018 01/18/20 22 Overview: Added automatically from request for surgery [id number] Chronic GERD 02/07/2016 02/07/2016 Special screening for [...] of this encounter (statuses as of 11/21/2022) [facility] History of Past illness Narrative* Problem Noted Date Resolved Date COPD with chronic bronchitis 03/31/2019 Screen for colon cancer 08/05/2018 01/18/20 22 Overview: Added automatically from request for surgery [id number] Chronic GERD 02/07/2016 02/07/2016 Special screening for [...] of this encounter (statuses as of 11/24/2022) [facility] History of Past illness Narrative* Problem Noted Date Resolved Date COPD with chronic bronchitis 03/31/2019 Screen for colon cancer 08/05/2018 01/18/20 22 Overview: Added automatically from request for surgery [id number] Chronic GERD 02/07/2016 02/07/2016 Special screening for [...] of this encounter (statuses as of 12/06/2022) [facility] History of Past illness Narrative* Problem Noted Date Resolved Date COPD with chronic bronchitis 03/31/2019 Screen for colon cancer 08/05/2018 01/18/20 22 Overview: Added automatically from request for surgery [id number] Chronic GERD 02/07/2016 02/07/2016 Special screening for [...] of this encounter (statuses as of 12/06/2022) [facility] History of Past illness Narrative* Problem Noted Date Resolved Date COPD with chronic bronchitis 03/31/2019 Screen for colon cancer 08/05/2018 01/18/20 22 Overview: Added automatically from request for surgery [id number] Chronic GERD 02/07/2016 02/07/2016 Special screening for [...] of this encounter (statuses as of 12/07/2022) [facility] History of Past illness Narrative* Problem Noted Date Resolved Date COPD with chronic bronchitis 03/31/2019 Screen for colon cancer 08/05/2018 01/18/20 22 Overview: Added automatically from request for surgery [id number] Chronic GERD 02/07/2016 02/07/2016 Special screening for [...] of this encounter (statuses as of 12/12/2022) [facility] History of Past illness Narrative* Problem Noted Date Resolved Date COPD with chronic bronchitis 03/31/2019 Screen for colon cancer 08/05/2018 01/18/20 22 Overview: Added automatically from request for surgery [id number] Chronic GERD 02/07/2016 02/07/2016 Special screening for [...] of this encounter (statuses as of 12/14/2022) [facility] History of Past illness Narrative* Problem Noted Date Resolved Date COPD with chronic bronchitis 03/31/2019 Screen for colon cancer 08/05/2018 01/18/20 22 Overview: Added automatically from request for surgery [id number] Chronic GERD 02/07/2016 02/07/2016 Special screening for [...] of this encounter (statuses as of 12/18/2022) [facility] History of Past illness Narrative* Problem Noted Date Resolved Date COPD with chronic bronchitis 03/31/2019 Screen for colon cancer 08/05/2018 01/18/20 22 Overview: Added automatically from request for surgery [id number] Chronic GERD 02/07/2016 02/07/2016 Special screening for [...] of this encounter (statuses as of 12/20/2022) [facility] History of Past illness Narrative* Problem Noted Date Resolved Date COPD with chronic bronchitis 03/31/2019 Screen for colon cancer 08/05/2018 01/18/20 22 Overview: Added automatically from request for surgery [id number] Chronic GERD 02/07/2016 02/07/2016 Special screening for [...] of this encounter (statuses as of 12/24/2022) [facility] History of Past illness Narrative* Problem Noted Date Resolved Date COPD with chronic bronchitis 03/31/2019 Screen for colon cancer 08/05/2018 01/18/20 22 Overview: Added automatically from request for surgery [id number] Chronic GERD 02/07/2016 02/07/2016 Special screening for [...] of this encounter (statuses as of 12/25/2022) [facility] History of Past illness Narrative* Problem Noted Date Resolved Date COPD with chronic bronchitis 03/31/2019 Screen for colon cancer 08/05/2018 01/18/20 22 Overview: Added automatically from request for surgery [id number] Chronic GERD 02/07/2016 02/07/2016 Special screening for [...] of this encounter (statuses as of 12/31/2022) [facility] History of Past illness Narrative* Problem Noted Date Resolved Date COPD with chronic bronchitis 03/31/2019 Screen for colon cancer 08/05/2018 01/18/20 22 Overview: Added automatically from request for surgery [id number] Chronic GERD 02/07/2016 02/07/2016 Special screening for [...] of this encounter (statuses as of 12/31/2022) [facility] History of Past illness Narrative* Problem Noted Date Resolved Date COPD with chronic bronchitis 03/31/2019 Screen for colon cancer 08/05/2018 01/18/20 22 Overview: Added automatically from request for surgery [id number] Chronic GERD 02/07/2016 02/07/2016 Special screening for [...] of this encounter (statuses as of 01/01/2023) [facility] History of Past illness Narrative* Problem Noted Date Resolved Date COPD with chronic bronchitis 03/31/2019 Screen for colon cancer 08/05/2018 01/18/20 22 Overview: Added automatically from request for surgery [id number] Chronic GERD 02/07/2016 02/07/2016 Special screening for [...] of this encounter (statuses as of 01/02/2023) [facility] History of Past illness Narrative* Problem Noted Date Resolved Date COPD with chronic bronchitis 03/31/2019 Screen for colon cancer 08/05/2018 01/18/20 22 Overview: Added automatically from request for surgery [id number] Chronic GERD 02/07/2016 02/07/2016 Special screening for [...] of this encounter (statuses as of 01/03/2023) [facility] History of Past illness Narrative* Problem Noted Date Resolved Date COPD with chronic bronchitis 03/31/2019 Screen for colon cancer 08/05/2018 01/18/20 22 Overview: Added automatically from request for surgery [id number] Chronic GERD 02/07/2016 02/07/2016 Special screening for [...] of this encounter (statuses as of 01/03/2023) [facility] History of Past illness Narrative* Problem Noted Date Resolved Date COPD with chronic bronchitis 03/31/2019 Screen for colon cancer 08/05/2018 01/18/20 22 Overview: Added automatically from request for surgery [id number] Chronic GERD 02/07/2016 02/07/2016 Special screening for [...] of this encounter (statuses as of 01/06/2023) [facility] History of Past illness Narrative* Problem Noted Date Resolved Date COPD with chronic bronchitis 03/31/2019 Screen for colon cancer 08/05/2018 01/18/20 22 Overview: Added automatically from request for surgery [id number] Chronic GERD 02/07/2016 02/07/2016 Special screening for [...] of this encounter (statuses as of 01/07/2023) [facility] History of Past illness Narrative* Problem Noted Date Resolved Date COPD with chronic bronchitis 03/31/2019 Screen for colon cancer 08/05/2018 01/18/20 22 Overview: Added automatically from request for surgery [id number] Chronic GERD 02/07/2016 02/07/2016 Special screening for [...] of this encounter (statuses as of 01/07/2023) [facility] History of Past illness Narrative* Problem Noted Date Resolved Date COPD with chronic bronchitis 03/31/2019 Screen for colon cancer 08/05/2018 01/18/20 22 Overview: Added automatically from request for surgery [id number] Chronic GERD 02/07/2016 02/07/2016 Special screening for [...] of this encounter (statuses as of 01/10/2023) [facility] History of Past illness Narrative* Problem Noted Date Resolved Date COPD with chronic bronchitis 03/31/2019 Screen for colon cancer 08/05/2018 01/18/20 22 Overview: Added automatically from request for surgery [id number] Chronic GERD 02/07/2016 02/07/2016 Special screening for [...] of this encounter (statuses as of 01/27/2023) [facility] History of Past illness Narrative* Problem Noted Date Resolved Date COPD with chronic bronchitis 03/31/2019 Screen for colon cancer 08/05/2018 01/18/20 22 Overview: Added automatically from request for surgery [id number] Chronic GERD 02/07/2016 02/07/2016 Special screening for [...] of this encounter (statuses as of 01/31/2023) [facility] History of Past illness Narrative* Problem Noted Date Resolved Date COPD with chronic bronchitis 03/31/2019 Screen for colon cancer 08/05/2018 01/18/20 22 Overview: Added automatically from request for surgery [id number] Chronic GERD 02/07/2016 02/07/2016 Special screening for [...] of this encounter (statuses as of 02/20/2023) [facility] History of Past illness Narrative* Problem Noted Date Resolved Date COPD with chronic bronchitis 03/31/2019 Screen for colon cancer 08/05/2018 01/18/20 22 Overview: Added automatically from request for surgery [id number] Chronic GERD 02/07/2016 02/07/2016 Special screening for [...] of this encounter (statuses as of 02/24/2023) [facility] History of Past illness Narrative* Problem Noted Date Resolved Date COPD with chronic bronchitis 03/31/2019 Screen for colon cancer 08/05/2018 01/18/20 22 Overview: Added automatically from request for surgery [id number] Chronic GERD 02/07/2016 02/07/2016 Special screening for [...] of this encounter (statuses as of 03/06/2023) [facility] History of Past illness Narrative* Problem Noted Date Resolved Date COPD with chronic bronchitis 03/31/2019 Screen for colon cancer 08/05/2018 01/18/20 22 Overview: Added automatically from request for surgery [id number] Chronic GERD 02/07/2016 02/07/2016 Special screening for [...] of this encounter (statuses as of 03/15/2023) [facility] History of Past illness Narrative* Problem Noted Date Resolved Date COPD with chronic bronchitis 03/31/2019 Screen for colon cancer 08/05/2018 01/18/20 22 Overview: Added automatically from request for surgery [id number] Chronic GERD 02/07/2016 02/07/2016 Special screening for [...] of this encounter (statuses as of 03/17/2023) [facility] History of Past illness Narrative* Problem Noted Date Resolved Date COPD with chronic bronchitis 03/31/2019 Screen for colon cancer 08/05/2018 01/18/20 22 Overview: Added automatically from request for surgery [id number] Chronic GERD 02/07/2016 02/07/2016 Special screening for [...] of this encounter (statuses as of 03/24/2023) [facility] History of Past illness Narrative* Problem Noted Date Resolved Date COPD with chronic bronchitis 03/31/2019 Screen for colon cancer 08/05/2018 01/18/20 22 Overview: Added automatically from request for surgery [id number] Chronic GERD 02/07/2016 02/07/2016 Special screening for [...] of this encounter (statuses as of 03/25/2023) [facility] History of Past illness Narrative* Problem Noted Date Resolved Date COPD with chronic bronchitis 03/31/2019 Screen for colon cancer 08/05/2018 01/18/20 22 Overview: Added automatically from request for surgery [id number] Chronic GERD 02/07/2016 02/07/2016 Special screening for [...] of this encounter (statuses as of 03/26/2023) [facility] History of Past illness Narrative* Problem Noted Date Resolved Date COPD with chronic bronchitis 03/31/2019 Screen for colon cancer 08/05/2018 01/18/20 22 Overview: Added automatically from request for surgery [id number] Chronic GERD 02/07/2016 02/07/2016 Special screening for [...] of this encounter (statuses as of 03/28/2023) [facility] History of Past illness Narrative* Problem Noted Date Resolved Date COPD with chronic bronchitis 03/31/2019 Screen for colon cancer 08/05/2018 01/18/20 22 Overview: Added automatically from request for surgery [id number] Chronic GERD 02/07/2016 02/07/2016 Special screening for [...] of this encounter (statuses as of 04/02/2023) [facility] History of Past illness Narrative* Problem Noted Date Resolved Date COPD with chronic bronchitis 03/31/2019 Screen for colon cancer 08/05/2018 01/18/20 22 Overview: Added automatically from request for surgery [id number] Chronic GERD 02/07/2016 02/07/2016 Special screening for [...] of this encounter (statuses as of 04/02/2023) [facility] History of Past illness Narrative* Problem Noted Date Resolved Date COPD with chronic bronchitis 03/31/2019 Screen for colon cancer 08/05/2018 01/18/20 22 Overview: Added automatically from request for surgery [id number] Chronic GERD 02/07/2016 02/07/2016 Special screening for [...] of this encounter (statuses as of 05/08/2023) [facility] History of Past illness Narrative* Problem Noted Date Resolved Date COPD with chronic bronchitis 03/31/2019 Screen for colon cancer 08/05/2018 01/18/20 22 Overview: Added automatically from request for surgery [id number] Chronic GERD 02/07/2016 02/07/2016 Special screening for [...] of this encounter (statuses as of 05/21/2023) [facility] History of Past illness Narrative* Problem Noted Date Resolved Date COPD with chronic bronchitis 03/31/2019 Screen for colon cancer 08/05/2018 01/18/20 22 Overview: Added automatically from request for surgery [id number] Chronic GERD 02/07/2016 02/07/2016 Special screening for [...] of this encounter (statuses as of 05/26/2023) [facility] History of Past illness Narrative* Problem Noted Date Resolved Date COPD with chronic bronchitis 03/31/2019 Screen for colon cancer 08/05/2018 01/18/20 22 Overview: Added automatically from request for surgery [id number] Chronic GERD 02/07/2016 02/07/2016 Special screening for [...] of this encounter (statuses as of 05/29/2023) [facility] History of Past illness Narrative* Problem Noted Date Resolved Date COPD with chronic bronchitis 03/31/2019 Screen for colon cancer 08/05/2018 01/18/20 22 Overview: Added automatically from request for surgery [id number] Chronic GERD 02/07/2016 02/07/2016 Special screening for [...] of this encounter (statuses as of 05/31/2023) [facility] History of Past illness Narrative* Problem Noted Date Resolved Date COPD with chronic bronchitis 03/31/2019 Screen for colon cancer 08/05/2018 01/18/20 22 Overview: Added automatically from request for surgery [id number] Chronic GERD 02/07/2016 02/07/2016 Special screening for [...] of this encounter (statuses as of 06/02/2023) [facility] History of Past illness Narrative* Problem Noted Date Resolved Date COPD with chronic bronchitis 03/31/2019 Screen for colon cancer 08/05/2018 01/18/20 22 Overview: Added automatically from request for surgery [id number] Chronic GERD 02/07/2016 02/07/2016 Special screening for [...] of this encounter (statuses as of 06/05/2023) [facility] History of Past illness Narrative* Problem Noted Date Diagnosed Date Resolved Date COPD with chronic bronchitis 03/31/2019 01/18/2022 Screen for colon cancer 08/05/201801/01 Overview: Added automatically from request for surgery [id number] Chronic GERD 02/07/2016 02/07/2016 Special screening for [...] of this encounter (statuses as of 06/15/2023) [facility] History of Past illness Narrative* Problem Noted Date Diagnosed Date Resolved Date COPD with chronic bronchitis 03/31/2019 01/18/2022 Screen for colon cancer 08/05/201801/01 Overview: Added automatically from request for surgery [id number] Chronic GERD 02/07/2016 02/07/2016 Special screening for [...] of this encounter (statuses as of 06/18/2023) [facility] History of Past illness Narrative* Problem Noted Date Diagnosed Date Resolved Date COPD with chronic bronchitis 03/31/2019 01/18/2022 Screen for colon cancer 08/05/201801/01 Overview: Added automatically from request for surgery [id number] Chronic GERD 02/07/2016 02/07/2016 Special screening for [...] of this encounter (statuses as of 06/25/2023) [facility] History of Past illness Narrative* Problem Noted Date Diagnosed Date Resolved Date COPD with chronic bronchitis 03/31/2019 01/18/2022 Screen for colon cancer 08/05/201801/01 Overview: Added automatically from request for surgery [id number] Chronic GERD 02/07/2016 02/07/2016 Special screening for [...] of this encounter (statuses as of 06/26/2023) [facility] History of Past illness Narrative* Problem Noted Date Diagnosed Date Resolved Date COPD with chronic bronchitis 03/31/2019 01/18/2022 Screen for colon cancer 08/05/201801/01 Overview: Added automatically from request for surgery [id number] Chronic GERD 02/07/2016 02/07/2016 Special screening for [...] of this encounter (statuses as of 07/19/2023) [facility] History of Past illness Narrative* Problem Noted Date Diagnosed Date Resolved Date COPD with chronic bronchitis 03/31/2019 01/18/2022 Screen for colon cancer 08/05/201801/01 Overview: Added automatically from request for surgery [id number] Chronic GERD 02/07/2016 02/07/2016 Special screening for [...] of this encounter (statuses as of 07/21/2023) [facility] History of Past illness Narrative* Problem Noted Date Diagnosed Date Resolved Date COPD with chronic bronchitis 03/31/2019 01/18/2022 Screen for colon cancer 08/05/201801/01 Overview: Added automatically from request for surgery [id number] Chronic GERD 02/07/2016 02/07/2016 Special screening for [...] of this encounter (statuses as of 07/25/2023) [facility] History of Past illness Narrative* Problem Noted Date Diagnosed Date Resolved Date COPD with chronic bronchitis 03/31/2019 01/18/2022 Screen for colon cancer 08/05/201801/01 Overview: Added automatically from request for surgery [id number] Chronic GERD 02/07/2016 02/07/2016 Special screening for [...] of this encounter (statuses as of 07/25/2023) [facility] History of Past illness Narrative* Problem Noted Date Diagnosed Date Resolved Date COPD with chronic bronchitis 03/31/2019 01/18/2022 Screen for colon cancer 08/05/201801/01 Overview: Added automatically from request for surgery [id number] Chronic GERD 02/07/2016 02/07/2016 Special screening for [...] of this encounter (statuses as of 08/19/2023) [facility] History of Past illness Narrative* Problem Noted Date Diagnosed Date Resolved Date COPD with chronic bronchitis 03/31/2019 01/18/2022 Screen for colon cancer 08/05/201801/01 Overview: Added automatically from request for surgery [id number] Chronic GERD 02/07/2016 02/07/2016 Special screening for [...] of this encounter (statuses as of 08/21/2023) [facility] History of Past illness Narrative* Problem Noted Date Diagnosed Date Resolved Date COPD with chronic bronchitis 03/31/2019 01/18/2022 Screen for colon cancer 08/05/201801/01 Overview: Added automatically from request for surgery [id number] Chronic GERD 02/07/2016 02/07/2016 Special screening for [...] of this encounter (statuses as of 08/25/2023) [facility] History of Past illness Narrative* Problem Noted Date Diagnosed Date Resolved Date COPD with chronic bronchitis 03/31/2019 01/18/2022 Screen for colon cancer 08/05/201801/01 Overview: Added automatically from request for surgery [id number] Chronic GERD 02/07/2016 02/07/2016 Special screening for [...] of this encounter (statuses as of 09/07/2023) [facility] History of Past illness Narrative* Problem Noted Date Diagnosed Date Resolved Date COPD with chronic bronchitis 03/31/2019 01/18/2022 Screen for colon cancer 08/05/201801/01 Overview: Added automatically from request for surgery [id number] Chronic GERD 02/07/2016 02/07/2016 Special screening for [...] of this encounter (statuses as of 09/15/2023) [facility] History of Past illness Narrative* Problem Noted Date Diagnosed Date Resolved Date COPD with chronic bronchitis 03/31/2019 01/18/2022 Screen for colon cancer 08/05/201801/01 Overview: Added automatically from request for surgery [id number] Chronic GERD 02/07/2016 02/07/2016 Special screening for [...] of this encounter (statuses as of 09/18/2023) [facility] History of Past illness Narrative* Problem Noted Date Diagnosed Date Resolved Date COPD with chronic bronchitis 03/31/2019 01/18/2022 Screen for colon cancer 08/05/201801/01 Overview: Added automatically from request for surgery [id number] Chronic GERD 02/07/2016 02/07/2016 Special screening for [...] of this encounter (statuses as of 09/19/2023) [facility] History of Past illness Narrative* Problem Noted Date Diagnosed Date Resolved Date COPD with chronic bronchitis 03/31/2019 01/18/2022 Screen for colon cancer 08/05/201801/01 Overview: Added automatically from request for surgery [id number] Chronic GERD 02/07/2016 02/07/2016 Special screening for [...] of this encounter (statuses as of 09/26/2023) [facility] History of Past illness Narrative* Problem Noted Date Diagnosed Date Resolved Date COPD with chronic bronchitis 03/31/2019 01/18/2022 Screen for colon cancer 08/05/201801/01 Overview: Added automatically from request for surgery [id number] Chronic GERD 02/07/2016 02/07/2016 Special screening for [...] of this encounter (statuses as of 10/05/2023) [facility] History of Past illness Narrative* Problem Noted Date Diagnosed Date Resolved Date COPD with chronic bronchitis 03/31/2019 01/18/2022 Screen for colon cancer 08/05/201801/01 Overview: Added automatically from request for surgery [id number] Chronic GERD 02/07/2016 02/07/2016 Special screening for [...] of this encounter (statuses as of 10/05/2023) [facility] History of Past illness Narrative* Problem Noted Date Diagnosed Date Resolved Date COPD with chronic bronchitis 03/31/2019 01/18/2022 Screen for colon cancer 08/05/201801/01 Overview: Added automatically from request for surgery [id number] Chronic GERD 02/07/2016 02/07/2016 Special screening for [...] of this encounter (statuses as of 10/13/2023) [facility] History of Past illness Narrative* Problem Noted Date Diagnosed Date Resolved Date COPD with chronic bronchitis 03/31/2019 01/18/2022 Screen for colon cancer 08/05/201801/01 Overview: Added automatically from request for surgery [id number] Chronic GERD 02/07/2016 02/07/2016 Special screening for [...] of this encounter (statuses as of 11/05/2023) [facility] History of Past illness Narrative* Problem Noted Date Diagnosed Date Resolved Date COPD with chronic bronchitis 03/31/2019 01/18/2022 Screen for colon cancer 08/05/201801/01 Overview: Added automatically from request for surgery [id number] Chronic GERD 02/07/2016 02/07/2016 Special screening for [...] of this encounter (statuses as of 11/05/2023) [facility] History of Past illness Narrative* Problem Noted Date Diagnosed Date Resolved Date COPD with chronic bronchitis 03/31/2019 01/18/2022 Screen for colon cancer 08/05/201801/01 Overview: Added automatically from request for surgery [id number] Chronic GERD 02/07/2016 02/07/2016 Special screening for [...] of this encounter (statuses as of 11/13/2023) [facility] History of Past illness Narrative* Problem Noted Date Diagnosed Date Resolved Date COPD with chronic bronchitis 03/31/2019 01/18/2022 Screen for colon cancer 08/05/201801/01 Overview: Added automatically from request for surgery [id number] Chronic GERD 02/07/2016 02/07/2016 Special screening for malign ant neoplasms, colon 07/26/2015 07/26/2015 GERD (gastroesophageal reflux disease) 07/19/2015 01/18/2022 ADD (attention deficit disorder) 07/18/2015 01/18/2022 Substance abuse rule out 03/15/2015 Herpes 11/30/2014 02/28/2016 Overview: Positive for types 1 and 2. Duodenitis without mention of hemorrhage 02/03/2012 01/18/2022 Acute gastritis without mention of hemorrhage 03/04/19 1201/18/2022 Hyperlipidemia 12/18/2011 01/18/2022 Pain in joint, lower leg 07/13/2007 Bipolar disorder, unspecified 02/20/2007 01/18/2022 Chest pain, unspecified 01/23/200701/01 Backache, unspecified 06/18/20062021 PROCTITIS IDIOPATHIC 06/04/2006 022 Hemorrhage of gastrointestin al tract, unspecified 05/29/2006 01/18/2022 Headache(784.0) 01/21/2006 01/18/2022 documented as of this encounter (statuses as of 01/02/2024) [facility] History of Past illness Narrative* Problem Noted Date Diagnosed Date Resolved Date COPD with chronic bronchitis 03/31/2019 01/18/2022 Screen for colon cancer 08/05/201801/01 Overview: Added automatically from request for surgery [id number] Chronic GERD 02/07/2016 02/07/2016 Special screening for [...] as of this encounter (statuses as of 01/14/2024) [facility] History of Past illness Narrative* Problem Noted Date Diagnosed Date Resolved Date COPD with chronic bronchitis 03/31/2019 01/18/2022 Screen for colon cancer 08/05/201801/01 Overview: Added automatically from request for surgery [id number] Chronic GERD 02/07/2016 02/07/2016 Special screening for [...] as of this encounter (statuses as of 01/14/2024) [facility] History of Past illness Narrative* Problem Noted Date Diagnosed Date Resolved Date COPD with chronic bronchitis 03/31/2019 01/18/2022 Screen for colon cancer 08/05/201801/01 Overview: Added automatically from request for surgery [id number] Chronic GERD 02/07/2016 02/07/2016 Special screening for [...] as of this encounter (statuses as of 01/30/2024) [facility] History of Past illness Narrative* Problem Noted Date Diagnosed Date Resolved Date COPD with chronic bronchitis 03/31/2019 01/18/2022 Screen for colon cancer 08/05/201801/01 Overview: Added automatically from request for surgery [id number] Chronic GERD 02/07/2016 02/07/2016 Special screening for [...] as of this encounter (statuses as of 02/04/2024) [facility] History of Past illness Narrative* Problem Noted Date Diagnosed Date Resolved Date COPD with chronic bronchitis 03/31/2019 01/18/2022 Screen for colon cancer 08/05/201801/01 Overview: Added automatically from request for surgery [id number] Chronic GERD 02/07/2016 02/07/2016 Special screening for [...] as of this encounter (statuses as of 02/05/2024) [facility] History of Past illness Narrative* Problem Noted Date Diagnosed Date Resolved Date COPD with chronic bronchitis 03/31/2019 01/18/2022 Screen for colon cancer 08/05/201801/01 Overview: Added automatically from request for surgery [id number] Chronic GERD 02/07/2016 02/07/2016 Special screening for [...] as of this encounter (statuses as of 03/02/2024) [facility] History of Past illness Narrative* Problem Noted Date Diagnosed Date Resolved Date COPD with chronic bronchitis 03/31/2019 01/18/2022 Screen for colon cancer 08/05/201801/01 Overview: Added automatically from request for surgery [id number] Chronic GERD 02/07/2016 02/07/2016 Special screening for [...] as of this encounter (statuses as of 03/04/2024) [facility] Diagnosis Bilateral elbow joint pain- Primary [facility] Diagnosis Chronic idiopathic constipation Unspecified constipation [facility] Open wound of toe, initial encounter- Primary Onychomycosis of toenail Dermatophytosis of nail [facility] this encounter [facility]* Diagnosis Abdominal pain, unspecified abdominal location- Primary [facility] Diagnosis Bilateral elbow joint pain Lateral epicondylitis of both elbows Lateral epicondylitis of elbow [facility] noteNo assessment information availableW[facility]* Diagnosis Bilateral leg pain Pain in limb Multiple sclerosis (HCC) Multiple sclerosis Attention deficit disorder, unspecified hyperactivity presence [facility] Bilateral elbow joint pain [facility]* Diagnosis Chronic elbow pain, left- Primary [...] having achieved remission [facility] Diagnosis CML (chronic myeloid leukemia) [...] (HCC) [facility] Stage 2 moderate COPD by GOLD classification ([facility]) [facility] Diagnosis CML (chronic myelocytic leukemia) (HCC) Chronic myeloid leukemia, without mention of having achieved remission [facility] History of peptic ulcer disease- Primary Personal history of peptic ulcer disease Gastroesophageal reflux disease without esophagitis Esophageal reflux [facility] Diagnosis Attention deficit disorder, unspecified hyperactivity presence Bilateral leg pain Pain in limb Multiple sclerosis (HCC) [facility] Diagnosis Abdominal pain, unspecified abdominal location- Primary Gastroesophageal reflux disease without esophagitis Esophageal reflux History of peptic ulcer disease Personal history of peptic ulcer disease [facility] Diagnosis Meibomian gland dysfunction (MGD) of upper and lower lids of both eyes- Primary Myopia, bilateral Myopia Presbyopia [facility] Diagnosis CML (chronic myelocytic leukemia) (HCC)- Primary Chronic myeloid leukemia, without mention of having achieved remission [facility] Diagnosis Lateral epicondylitis of left elbow- Primary Lateral epicondylitis of elbow Lateral epicondylitis of left elbow Lateral epicondylitis of elbow [facility] Diagnosis Abdominal pain, unspecified abdominal location Gastroesophageal reflux disease without esophagitis Esophageal reflux History of peptic ulcer disease Personal history of peptic ulcer disease Lateral epicondylitis of left elbow Lateral epicondylitis of elbow [facility] Diagnosis Bilateral leg pain- Primary [...] epicondylitis of elbow [facility] Diagnosis Vitamin B12 deficiency- Primary Other B-complex deficiencies Lateral epicondylitis of left elbow Lateral epicondylitis of elbow [facility] Diagnosis Tobacco abuse Tobacco use disorder [...] constipation Unspecified constipation [facility] Diagnosis CML (chronic myeloid leukemia) [...] leg pain Pain in limb Multiple sclerosis ([facility]) Multiple sclerosis Right lateral epicondylitis Lateral epicondylitis of elbow [facility] Diagnosis Stage 2 moderate COPD by GOLD classification ([facility]) Right lateral epicondylitis Lateral epicondylitis of elbow [facility] Diagnosis No-show for appointment- Primary Right [...] Stage 2 moderate COPD by GOLD classification ([facility]) Gastroesophageal reflux disease with esophagitis without hemorrhage CML (chronic myeloid leukemia) (HCC) Chronic myeloid leukemia, without mention of having achieved remission PAD (peripheral artery disease) ([facility]) Peripheral vascular disease, unspecified [facility] Diagnosis CML (chronic myelocytic leukemia) (HCC)- Primary Chronic myeloid leukemia, without mention of having achieved remission [facility] Diagnosis Stage 2 moderate COPD by GOLD classification ([facility]) documented in this encounter [facility] [...] Stage 2 moderate COPD by GOLD classification ([facility])- Primary Chest pain, unspecified type [...] Stage 2 moderate COPD by GOLD classification ([facility]) Abnormal CT scan, lung Other nonspecific abnormal finding of lung field [facility] Diagnosis Stage 2 moderate COPD by GOLD classification ([facility]) Abnormal CT scan, lung Other nonspecific abnormal finding of lung field [facility] Diagnosis Stage 2 moderate COPD by GOLD classification ([facility]) documented in this encounter [facility] [...] of unknown significance) Monoclonal paraproteinemia Immunocompromised state ([facility]) Unspecified immunity deficiency documented in this encounter [...] [facility] Diagnosis Onset Date Resolution Status Dysphagia chronic Epigastric abdominal pain [facility] Work Phone: Evaluation note* Diagnosis CML (chronic myelocytic leukemia) (HCC)- [...] [facility] Diagnosis Onset Date Resolution Status Chronic constipation chronic Dysphagia chronic Epigastric abdominal pain [facility] Work Phone: evaluation note* Diagnosis Multiple sclerosis (HCC) Multiple sclerosis Multiple sclerosis, relapsing-remitting (HCC) Multiple sclerosis RLS (restless legs syndrome) Restless legs syndrome (RLS) Malaise and fatigue Other malaise and fatigue Imbalance Abnormality of gait [facility] Diagnosis Stage 2 moderate COPD by GOLD classification ([facility]) [facility] Diagnosis CML (chronic myelocytic leukemia) (HCC)- Primary Chronic myeloid leukemia, without mention of having achieved remission [facility] Diagnosis Weight gain- Primary Abnormal weight gain Multiple sclerosis (HCC) Multiple sclerosis Bilateral leg pain Pain in limb Attention deficit disorder, unspecified hyperactivity presence Fatigue, unspecified type Vitamin B12 deficiency Other B-complex deficiencies Stage 2 moderate COPD by GOLD classification ([facility]) Vitamin D deficiency Unspecified vitamin D deficiency ED (erectile dysfunction) of organic origin Impotence of organic origin Foot pain, bilateral Pain in limb Multiple myeloma not having achieved remission (HCC) Multiple myeloma, without mention of having achieved remission Immunocompromised state ([facility]) Unspecified immunity deficiency Other schizophrenia ([facility]) PAD (peripheral artery disease) ([facility]) Peripheral vascular disease, unspecified [facility] Diagnosis Onset Date Resolution Status Chronic constipation chronic Dysphagia chronic Epigastric abdominal pain ch ronic Smoldering myeloma acute [facility] Work Phone: evaluation note* Diagnosis CML (chronic myeloid leukemia) (HCC)- Primary Chronic myeloid leukemia, without mention of having achieved remission Smoldering myeloma Multiple myeloma, without mention of having achieved remission [facility] Diagnosis CML (chronic myeloid leukemia) (HCC)- Primary Chronic myeloid leukemia, without mention of having achieved remission Smoldering myeloma Multiple myeloma, without mention of having achieved remission [facility]* Diagnosis Multiple sclerosis (HCC) Multiple [...] Stage 2 moderate COPD by GOLD classification ([facility]) [facility] Diagnosis CML (chronic myeloid leukemia) (HCC)- Primary Chronic myeloid leukemia, without mention of having achieved remission [facility]* Diagnosis CML (chronic myelocytic leukemia) (HCC)- Primary Chronic myeloid leukemia, without mention of having achieved remission [facility] Diagnosis Hypercalcemia CML (chronic myelocytic leukemia) (HCC) Chronic myeloid leukemia, without mention of having achieved remission [facility]* Diagnosis CML (chronic myelocytic leukemia) (HCC)- Primary Chronic myeloid leukemia, without mention of having achieved remission [facility] Diagnosis Vitamin D deficiency- Primary Unspecified vitamin D deficiency Attention deficit disorder, unspecified hyperactivity presence Multiple sclerosis (HCC) Multiple sclerosis Bilateral leg pain Pain in limb Vitamin B12 deficiency Other B-complex deficiencies Medication monitoring encounter Encounter for therapeutic drug monitoring Multiple myeloma not having achieved remission (HCC) Multiple myeloma, without mention of having achieved remission Other schizophrenia (HCC) PAD (peripheral artery disease) (HCC) Peripheral vascular disease, unspecified [facility] Diagnosis Stage 2 moderate COPD by GOLD classification ([facility]) [facility] Diagnosis CML (chronic myelocytic leukemia) (HCC)- Primary Chronic myeloid leukemia, without mention of having achieved remission [facility] Multiple sclerosis (HCC) Multiple sclerosis Multiple sclerosis, relapsing-remitting (HCC) Multiple sclerosis RLS (restless legs syndrome) Restless legs syndrome (RLS) Malaise and fatigue Other malaise and fatigue Imbalance Abnormality of gait [facility] Diagnosis Pre-operative examination- Primary Preoperative examination, unspecified Onychomycosis Dermatophytosis of nail Celiac artery dilatation (HCC) Other specified disorders of arteries and arterioles Essential hypertension, benign Other hyperlipidemia CML (chronic myeloid leukemia) (HCC) Chronic myeloid leukemia, without mention of having achieved remission MGUS (monoclonal gammopathy of unknown significance) Monoclonal paraproteinemia Smoldering myeloma Multiple myeloma, without mention of having achieved remission Multiple sclerosis (HCC) Multiple sclerosis Chronic obstructive pulmonary disease, unspecified COPD type (HCC) Attention deficit disorder, unspecified hyperactivity presence Bipolar affective disorder, current episode mixed, current episode severity unspecified (HCC) Gastroesophageal reflux disease without esophagitis Esophageal reflux Splenomegaly Fatty liver Other chronic nonalcoholic liver disease Tobacco use Tobacco use disorder Schizophrenia, unspecified type (HCC) Pre-operative examination- Primary Preoperative examination, unspecified Smoldering myeloma Multiple myeloma, without mention of having achieved remission Schizophrenia, unspecified type (HCC) Other hyperlipidemia Ocular migraine Other forms of migraine, without mention of intractable migraine without mention of status migrainosus Multiple sclerosis (HCC) Multiple sclerosis MGUS (monoclonal gammopathy of unknown significance) Monoclonal paraproteinemia Gastroesophageal reflux disease without esophagitis Esophageal reflux Fatty liver Other chronic nonalcoholic liver disease Essential hypertension, benign CML (chronic myeloid leukemia) (HCC) Chronic myeloid leukemia, without mention of having achieved remission Chronic obstructive pulmonary disease, unspecified COPD type (HCC) Celiac artery dilatation (HCC) Other specified disorders of arteries and arterioles Bipolar affective disorder, current episode mixed, current episode severity unspecified (HCC) Attention deficit disorder, unspecified hyperactivity presence Abdominal pain, generalized OAB (overactive bladder) Hypertonicity of bladder Splenomegaly Tobacco use Tobacco use disorder CML (chronic myelocytic leukemia) (HCC)- Primary Chronic myeloid leukemia, without mention of having achieved remission [facility] Pre-operative examination- Primary Preoperative examination, unspecified Onychomycosis Dermatophytosis of nail Celiac artery dilatation (HCC) Other specified disorders of arteries and arterioles Essential hypertension, benign Other hyperlipidemia CML (chronic myeloid leukemia) (HCC) Chronic myeloid leukemia, without mention of having achieved remission MGUS (monoclonal gammopathy of unknown significance) Monoclonal paraproteinemia Smoldering myeloma Multiple myeloma, without mention of having achieved remission Multiple sclerosis (HCC) Multiple sclerosis Chronic obstructive pulmonary disease, unspecified COPD type (HCC) Attention deficit disorder, unspecified hyperactivity presence Bipolar affective disorder, current episode mixed, current episode severity unspecified (HCC) Gastroesophageal reflux disease without esophagitis Esophageal reflux Splenomegaly Fatty liver Other chronic nonalcoholic liver disease Tobacco use Tobacco use disorder Schizophrenia, unspecified type (HCC) Pre-operative examination- Primary Preoperative examination, unspecified Smoldering myeloma Multiple myeloma, without mention of having achieved remission Schizophrenia, unspecified type (HCC) Other hyperlipidemia Ocular migraine Other forms of migraine, without mention of intractable migraine without mention of status migrainosus Multiple sclerosis (HCC) Multiple sclerosis MGUS (monoclonal gammopathy of unknown significance) Monoclonal paraproteinemia Gastroesophageal reflux disease without esophagitis Esophageal reflux Fatty liver Other chronic nonalcoholic liver disease Essential hypertension, benign CML (chronic myeloid leukemia) (HCC) Chronic myeloid leukemia, without mention of having achieved remission Chronic obstructive pulmonary disease, unspecified COPD type (HCC) Celiac artery dilatation (HCC) Other specified disorders of arteries and arterioles Bipolar affective disorder, current episode mixed, current episode severity unspecified (HCC) Attention deficit disorder, unspecified hyperactivity presence Abdominal pain, generalized OAB (overactive bladder) Hypertonicity of bladder Splenomegaly Tobacco use Tobacco use disorder Stage 2 moderate COPD by GOLD classification (HCC) [facility] Pre-operative examination- Primary Preoperative examination, unspecified Onychomycosis Dermatophytosis of nail Celiac artery dilatation (HCC) Other specified disorders of arteries and arterioles Essential hypertension, benign Other hyperlipidemia CML (chronic myeloid leukemia) (HCC) Chronic myeloid leukemia, without mention of having achieved remission MGUS (monoclonal gammopathy of unknown significance) Monoclonal paraproteinemia Smoldering myeloma Multiple myeloma, without mention of having achieved remission Multiple sclerosis (HCC) Multiple sclerosis Chronic obstructive pulmonary disease, unspecified COPD type (HCC) Attention deficit disorder, unspecified hyperactivity presence Bipolar affective disorder, current episode mixed, current episode severity unspecified (HCC) Gastroesophageal reflux disease without esophagitis Esophageal reflux Splenomegaly Fatty liver Other chronic nonalcoholic liver disease Tobacco use Tobacco use disorder Schizophrenia, unspecified type (HCC) Pre-operative examination- Primary Preoperative examination, unspecified Smoldering myeloma Multiple myeloma, without mention of having achieved remission Schizophrenia, unspecified type (HCC) Other hyperlipidemia Ocular migraine Other forms of migraine, without mention of intractable migraine without mention of status migrainosus Multiple sclerosis (HCC) Multiple sclerosis MGUS (monoclonal gammopathy of unknown significance) Monoclonal paraproteinemia Gastroesophageal reflux disease without esophagitis Esophageal reflux Fatty liver Other chronic nonalcoholic liver disease Essential hypertension, benign CML (chronic myeloid leukemia) (HCC) Chronic myeloid leukemia, without mention of having achieved remission Chronic obstructive pulmonary disease, unspecified COPD type (HCC) Celiac artery dilatation (HCC) Other specified disorders of arteries and arterioles Bipolar affective disorder, current episode mixed, current episode severity unspecified (HCC) Attention deficit disorder, unspecified hyperactivity presence Abdominal pain, generalized OAB (overactive bladder) Hypertonicity of bladder Splenomegaly Tobacco use Tobacco use disorder Foot pain, bilateral Pain in limb [facility] Diagnosis Pre-operative examination- Primary Preoperative examination, unspecified Onychomycosis Dermatophytosis of nail Celiac artery dilatation (HCC) Other specified disorders of arteries and arterioles Essential hypertension, benign Other hyperlipidemia CML (chronic myeloid leukemia) (HCC) Chronic myeloid leukemia, without mention of having achieved remission MGUS (monoclonal gammopathy of unknown significance) Monoclonal paraproteinemia Smoldering myeloma Multiple myeloma, without mention of having achieved remission Multiple sclerosis (HCC) Multiple sclerosis Chronic obstructive pulmonary disease, unspecified COPD type (HCC) Attention deficit disorder, unspecified hyperactivity presence Bipolar affective disorder, current episode mixed, current episode severity unspecified (HCC) Gastroesophageal reflux disease without esophagitis Esophageal reflux Splenomegaly Fatty liver Other chronic nonalcoholic liver disease Tobacco use Tobacco use disorder Schizophrenia, unspecified type (HCC) Pre-operative examination- Primary Preoperative examination, unspecified Smoldering myeloma Multiple myeloma, without mention of having achieved remission Schizophrenia, unspecified type (HCC) Other hyperlipidemia Ocular migraine Other forms of migraine, without mention of intractable migraine without mention of status migrainosus Multiple sclerosis (HCC) Multiple sclerosis MGUS (monoclonal gammopathy of unknown significance) Monoclonal paraproteinemia Gastroesophageal reflux disease without esophagitis Esophageal reflux Fatty liver Other chronic nonalcoholic liver disease Essential hypertension, benign CML (chronic myeloid leukemia) (HCC) Chronic myeloid leukemia, without mention of having achieved remission Chronic obstructive pulmonary disease, unspecified COPD type (HCC) Celiac artery dilatation (HCC) Other specified disorders of arteries and arterioles Bipolar affective disorder, current episode mixed, current episode severity unspecified (HCC) Attention deficit disorder, unspecified hyperactivity presence Abdominal pain, generalized OAB (overactive bladder) Hypertonicity of bladder Splenomegaly Tobacco use Tobacco use disorder CML (chronic myelocytic leukemia) (HCC)- Primary Chronic myeloid leukemia, without mention of having achieved remission [facility] Diagnosis Pre-operative examination- Primary Preoperative examination, unspecified Onychomycosis Dermatophytosis of nail Celiac artery dilatation (HCC) Other specified disorders of arteries and arterioles Essential hypertension, benign Other hyperlipidemia CML (chronic myeloid leukemia) (HCC) Chronic myeloid leukemia, without mention of having achieved remission MGUS (monoclonal gammopathy of unknown significance) Monoclonal paraproteinemia Smoldering myeloma Multiple myeloma, without mention of having achieved remission Multiple sclerosis (HCC) Multiple sclerosis Chronic obstructive pulmonary disease, unspecified COPD type (HCC) Attention deficit disorder, unspecified hyperactivity presence Bipolar affective disorder, current episode mixed, current episode severity unspecified (HCC) Gastroesophageal reflux disease without esophagitis Esophageal reflux Splenomegaly Fatty liver Other chronic nonalcoholic liver disease Tobacco use Tobacco use disorder Schizophrenia, unspecified type (HCC) Pre-operative examination- Primary Preoperative examination, unspecified Smoldering myeloma Multiple myeloma, without mention of having achieved remission Schizophrenia, unspecified type (HCC) Other hyperlipidemia Ocular migraine Other forms of migraine, without mention of intractable migraine without mention of status migrainosus Multiple sclerosis (HCC) Multiple sclerosis MGUS (monoclonal gammopathy of unknown significance) Monoclonal paraproteinemia Gastroesophageal reflux disease without esophagitis Esophageal reflux Fatty liver Other chronic nonalcoholic liver disease Essential hypertension, benign CML (chronic myeloid leukemia) (HCC) Chronic myeloid leukemia, without mention of having achieved remission Chronic obstructive pulmonary disease, unspecified COPD type (HCC) Celiac artery dilatation (HCC) Other specified disorders of arteries and arterioles Bipolar affective disorder, current episode mixed, current episode severity unspecified (HCC) Attention deficit disorder, unspecified hyperactivity presence Abdominal pain, generalized OAB (overactive bladder) Hypertonicity of bladder Splenomegaly Tobacco use Tobacco use disorder Multiple sclerosis (HCC)- Primary Multiple sclerosis Bilateral leg pain Pain in limb Need for influenza vaccination Need for prophylactic vaccination and inoculation against influenza Attention or concentration deficit Essential hypertension, benign Other hyperlipidemia Hypothyroidism, acquired Unspecified hypothyroidism [facility] Pre-operative examination- Primary Preoperative examination, unspecified Onychomycosis Dermatophytosis of nail Celiac artery dilatation (HCC) Other specified disorders of arteries and arterioles Essential hypertension, benign Other hyperlipidemia CML (chronic myeloid leukemia) (HCC) Chronic myeloid leukemia, without mention of having achieved remission MGUS (monoclonal gammopathy of unknown significance) Monoclonal paraproteinemia Smoldering myeloma Multiple myeloma, without mention of having achieved remission Multiple sclerosis (HCC) Multiple sclerosis Chronic obstructive pulmonary disease, unspecified COPD type (HCC) Attention deficit disorder, unspecified hyperactivity presence Bipolar affective disorder, current episode mixed, current episode severity unspecified (HCC) Gastroesophageal reflux disease without esophagitis Esophageal reflux Splenomegaly Fatty liver Other chronic nonalcoholic liver disease Tobacco use Tobacco use disorder Schizophrenia, unspecified type (HCC) Pre-operative examination- Primary Preoperative examination, unspecified Smoldering myeloma Multiple myeloma, without mention of having achieved remission Schizophrenia, unspecified type (HCC) Other hyperlipidemia Ocular migraine Other forms of migraine, without mention of intractable migraine without mention of status migrainosus Multiple sclerosis (HCC) Multiple sclerosis MGUS (monoclonal gammopathy of unknown significance) Monoclonal paraproteinemia Gastroesophageal reflux disease without esophagitis Esophageal reflux Fatty liver Other chronic nonalcoholic liver disease Essential hypertension, benign CML (chronic myeloid leukemia) (HCC) Chronic myeloid leukemia, without mention of having achieved remission Chronic obstructive pulmonary disease, unspecified COPD type (HCC) Celiac artery dilatation (HCC) Other specified disorders of arteries and arterioles Bipolar affective disorder, current episode mixed, current episode severity unspecified (HCC) Attention deficit disorder, unspecified hyperactivity presence Abdominal pain, generalized OAB (overactive bladder) Hypertonicity of bladder Splenomegaly Tobacco use Tobacco use disorder Stage 2 moderate COPD by GOLD classification ([facility]) [facility] Diagnosis Pre-operative examination- Primary Preoperative examination, unspecified Onychomycosis Dermatophytosis of nail Celiac artery dilatation (HCC) Other specified disorders of arteries and arterioles Essential hypertension, benign Other hyperlipidemia CML (chronic myeloid leukemia) (HCC) Chronic myeloid leukemia, without mention of having achieved remission MGUS (monoclonal gammopathy of unknown significance) Monoclonal paraproteinemia Smoldering myeloma Multiple myeloma, without mention of having achieved remission Multiple sclerosis (HCC) Multiple sclerosis Chronic obstructive pulmonary disease, unspecified COPD type (HCC) Attention deficit disorder, unspecified hyperactivity presence Bipolar affective disorder, current episode mixed, current episode severity unspecified (HCC) Gastroesophageal reflux disease without esophagitis Esophageal reflux Splenomegaly Fatty liver Other chronic nonalcoholic liver disease Tobacco use Tobacco use disorder Schizophrenia, unspecified type (HCC) Pre-operative examination- Primary Preoperative examination, unspecified Smoldering myeloma Multiple myeloma, without mention of having achieved remission Schizophrenia, unspecified type (HCC) Other hyperlipidemia Ocular migraine Other forms of migraine, without mention of intractable migraine without mention of status migrainosus Multiple sclerosis (HCC) Multiple sclerosis MGUS (monoclonal gammopathy of unknown significance) Monoclonal paraproteinemia Gastroesophageal reflux disease without esophagitis Esophageal reflux Fatty liver Other chronic nonalcoholic liver disease Essential hypertension, benign CML (chronic myeloid leukemia) (HCC) Chronic myeloid leukemia, without mention of having achieved remission Chronic obstructive pulmonary disease, unspecified COPD type (HCC) Celiac artery dilatation (HCC) Other specified disorders of arteries and arterioles Bipolar affective disorder, current episode mixed, current episode severity unspecified (HCC) Attention deficit disorder, unspecified hyperactivity presence Abdominal pain, generalized OAB (overactive bladder) Hypertonicity of bladder Splenomegaly Tobacco use Tobacco use disorder Stage 2 moderate COPD by GOLD classification (HCC)- Primary Tobacco abuse Tobacco use disorder Stage 2 moderate COPD by GOLD classification ([facility]) [facility]* Diagnosis Smoldering myeloma Multiple myeloma, without mention of having achieved remission CML (chronic myeloid leukemia) (HCC) Chronic myeloid leukemia, without mention of having achieved remission Splenomegaly Pre-operative examination- Primary Preoperative examination, unspecified Onychomycosis Dermatophytosis of nail Celiac artery dilatation (HCC) Other specified disorders of arteries and arterioles Essential hypertension, benign Other hyperlipidemia CML (chronic myeloid leukemia) (HCC) Chronic myeloid leukemia, without mention of having achieved remission MGUS (monoclonal gammopathy of unknown significance) Monoclonal paraproteinemia Smoldering myeloma Multiple myeloma, without mention of having achieved remission Multiple sclerosis (HCC) Multiple sclerosis Chronic obstructive pulmonary disease, unspecified COPD type (HCC) Attention deficit disorder, unspecified hyperactivity presence Bipolar affective disorder, current episode mixed, current episode severity unspecified (HCC) Gastroesophageal reflux disease without esophagitis Esophageal reflux Splenomegaly Fatty liver Other chronic nonalcoholic liver disease Tobacco use Tobacco use disorder Schizophrenia, unspecified type (HCC) Pre-operative examination- Primary Preoperative examination, unspecified Smoldering myeloma Multiple myeloma, without mention of having achieved remission Schizophrenia, unspecified type (HCC) Other hyperlipidemia Ocular migraine Other forms of migraine, without mention of intractable migraine without mention of status migrainosus Multiple sclerosis (HCC) Multiple sclerosis MGUS (monoclonal gammopathy of unknown significance) Monoclonal paraproteinemia Gastroesophageal reflux disease without esophagitis Esophageal reflux Fatty liver Other chronic nonalcoholic liver disease Essential hypertension, benign CML (chronic myeloid leukemia) (HCC) Chronic myeloid leukemia, without mention of having achieved remission Chronic obstructive pulmonary disease, unspecified COPD type (HCC) Celiac artery dilatation (HCC) Other specified disorders of arteries and arterioles Bipolar affective disorder, current episode mixed, current episode severity unspecified (HCC) Attention deficit disorder, unspecified hyperactivity presence Abdominal pain, generalized OAB (overactive bladder) Hypertonicity of bladder Splenomegaly Tobacco use Tobacco use disorder documented in this encounter [facility]* Diagnosis Acute pain of left knee Pre-operative examination- Primary Preoperative examination, unspecified Onychomycosis Dermatophytosis of nail Celiac artery dilatation (HCC) Other specified disorders of arteries and arterioles Essential hypertension, benign Other hyperlipidemia CML (chronic myeloid leukemia) (HCC) Chronic myeloid leukemia, without mention of having achieved remission MGUS (monoclonal gammopathy of unknown significance) Monoclonal paraproteinemia Smoldering myeloma Multiple myeloma, without mention of having achieved remission Multiple sclerosis (HCC) Multiple sclerosis Chronic obstructive pulmonary disease, unspecified COPD type (HCC) Attention deficit disorder, unspecified hyperactivity presence Bipolar affective disorder, current episode mixed, current episode severity unspecified (HCC) Gastroesophageal reflux disease without esophagitis Esophageal reflux Splenomegaly Fatty liver Other chronic nonalcoholic liver disease Tobacco use Tobacco use disorder Schizophrenia, unspecified type (HCC) Pre-operative examination- Primary Preoperative examination, unspecified Smoldering myeloma Multiple myeloma, without mention of having achieved remission Schizophrenia, unspecified type (HCC) Other hyperlipidemia Ocular migraine Other forms of migraine, without mention of intractable migraine without mention of status migrainosus Multiple sclerosis (HCC) Multiple sclerosis MGUS (monoclonal gammopathy of unknown significance) Monoclonal paraproteinemia Gastroesophageal reflux disease without esophagitis Esophageal reflux Fatty liver Other chronic nonalcoholic liver disease Essential hypertension, benign CML (chronic myeloid leukemia) (HCC) Chronic myeloid leukemia, without mention of having achieved remission Chronic obstructive pulmonary disease, unspecified COPD type (HCC) Celiac artery dilatation (HCC) Other specified disorders of arteries and arterioles Bipolar affective disorder, current episode mixed, current episode severity unspecified (HCC) Attention deficit disorder, unspecified hyperactivity presence Abdominal pain, generalized OAB (overactive bladder) Hypertonicity of bladder Splenomegaly Tobacco use Tobacco use disorder [facility] Diagnosis Pre-operative examination- Primary Preoperative examination, unspecified Onychomycosis Dermatophytosis of nail Celiac artery dilatation (HCC) Other specified disorders of arteries and arterioles Essential hypertension, benign Other hyperlipidemia CML (chronic myeloid leukemia) (HCC) Chronic myeloid leukemia, without mention of having achieved remission MGUS (monoclonal gammopathy of unknown significance) Monoclonal paraproteinemia Smoldering myeloma Multiple myeloma, without mention of having achieved remission Multiple sclerosis (HCC) Multiple sclerosis Chronic obstructive pulmonary disease, unspecified COPD type (HCC) Attention deficit disorder, unspecified hyperactivity presence Bipolar affective disorder, current episode mixed, current episode severity unspecified (HCC) Gastroesophageal reflux disease without esophagitis Esophageal reflux Splenomegaly Fatty liver Other chronic nonalcoholic liver disease Tobacco use Tobacco use disorder Schizophrenia, unspecified type (HCC) Pre-operative examination- Primary Preoperative examination, unspecified Smoldering myeloma Multiple myeloma, without mention of having achieved remission Schizophrenia, unspecified type (HCC) Other hyperlipidemia Ocular migraine Other forms of migraine, without mention of intractable migraine without mention of status migrainosus Multiple sclerosis (HCC) Multiple sclerosis MGUS (monoclonal gammopathy of unknown significance) Monoclonal paraproteinemia Gastroesophageal reflux disease without esophagitis Esophageal reflux Fatty liver Other chronic nonalcoholic liver disease Essential hypertension, benign CML (chronic myeloid leukemia) (HCC) Chronic myeloid leukemia, without mention of having achieved remission Chronic obstructive pulmonary disease, unspecified COPD type (HCC) Celiac artery dilatation (HCC) Other specified disorders of arteries and arterioles Bipolar affective disorder, current episode mixed, current episode severity unspecified (HCC) Attention deficit disorder, unspecified hyperactivity presence Abdominal pain, generalized OAB (overactive bladder) Hypertonicity of bladder Splenomegaly Tobacco use Tobacco use disorder Hypercalcemia CML (chronic myelocytic leukemia) (HCC) Chronic myeloid leukemia, without mention of having achieved remission [facility] Diagnosis Pre-operative examination- Primary Preoperative examination, unspecified Onychomycosis Dermatophytosis of nail Celiac artery dilatation (HCC) Other specified disorders of arteries and arterioles Essential hypertension, benign Other hyperlipidemia CML (chronic myeloid leukemia) (HCC) Chronic myeloid leukemia, without mention of having achieved remission MGUS (monoclonal gammopathy of unknown significance) Monoclonal paraproteinemia Smoldering myeloma Multiple myeloma, without mention of having achieved remission Multiple sclerosis (HCC) Multiple sclerosis Chronic obstructive pulmonary disease, unspecified COPD type (HCC) Attention deficit disorder, unspecified hyperactivity presence Bipolar affective disorder, current episode mixed, current episode severity unspecified (HCC) Gastroesophageal reflux disease without esophagitis Esophageal reflux Splenomegaly Fatty liver Other chronic nonalcoholic liver disease Tobacco use Tobacco use disorder Schizophrenia, unspecified type (HCC) Pre-operative examination- Primary Preoperative examination, unspecified Smoldering myeloma Multiple myeloma, without mention of having achieved remission Schizophrenia, unspecified type (HCC) Other hyperlipidemia Ocular migraine Other forms of migraine, without mention of intractable migraine without mention of status migrainosus Multiple sclerosis (HCC) Multiple sclerosis MGUS (monoclonal gammopathy of unknown significance) Monoclonal paraproteinemia Gastroesophageal reflux disease without esophagitis Esophageal reflux Fatty liver Other chronic nonalcoholic liver disease Essential hypertension, benign CML (chronic myeloid leukemia) (HCC) Chronic myeloid leukemia, without mention of having achieved remission Chronic obstructive pulmonary disease, unspecified COPD type (HCC) Celiac artery dilatation (HCC) Other specified disorders of arteries and arterioles Bipolar affective disorder, current episode mixed, current episode severity unspecified (HCC) Attention deficit disorder, unspecified hyperactivity presence Abdominal pain, generalized OAB (overactive bladder) Hypertonicity of bladder Splenomegaly Tobacco use Tobacco use disorder Multiple sclerosis (HCC)- Primary Multiple sclerosis Multiple sclerosis, relapsing-remitting (HCC) Multiple sclerosis RLS (restless legs syndrome) Restless legs syndrome (RLS) Malaise and fatigue Other malaise and fatigue Imbalance Abnormality of gait [facility] Diagnosis Pre-operative examination- Primary Preoperative examination, unspecified Onychomycosis Dermatophytosis of nail Celiac artery dilatation (HCC) Other specified disorders of arteries and arterioles Essential hypertension, benign Other hyperlipidemia CML (chronic myeloid leukemia) (HCC) Chronic myeloid leukemia, without mention of having achieved remission MGUS (monoclonal gammopathy of unknown significance) Monoclonal paraproteinemia Smoldering myeloma Multiple myeloma, without mention of having achieved remission Multiple sclerosis (HCC) Multiple sclerosis Chronic obstructive pulmonary disease, unspecified COPD type (HCC) Attention deficit disorder, unspecified hyperactivity presence Bipolar affective disorder, current episode mixed, current episode severity unspecified (HCC) Gastroesophageal reflux disease without esophagitis Esophageal reflux Splenomegaly Fatty liver Other chronic nonalcoholic liver disease Tobacco use Tobacco use disorder Schizophrenia, unspecified type (HCC) Pre-operative examination- Primary Preoperative examination, unspecified Smoldering myeloma Multiple myeloma, without mention of having achieved remission Schizophrenia, unspecified type (HCC) Other hyperlipidemia Ocular migraine Other forms of migraine, without mention of intractable migraine without mention of status migrainosus Multiple sclerosis (HCC) Multiple sclerosis MGUS (monoclonal gammopathy of unknown significance) Monoclonal paraproteinemia Gastroesophageal reflux disease without esophagitis Esophageal reflux Fatty liver Other chronic nonalcoholic liver disease Essential hypertension, benign CML (chronic myeloid leukemia) (HCC) Chronic myeloid leukemia, without mention of having achieved remission Chronic obstructive pulmonary disease, unspecified COPD type (HCC) Celiac artery dilatation (HCC) Other specified disorders of arteries and arterioles Bipolar affective disorder, current episode mixed, current episode severity unspecified (HCC) Attention deficit disorder, unspecified hyperactivity presence Abdominal pain, generalized OAB (overactive bladder) Hypertonicity of bladder Splenomegaly Tobacco use Tobacco use disorder Multiple sclerosis (HCC) [facility] Diagnosis Pre-operative examination- Primary Preoperative examination, unspecified Onychomycosis Dermatophytosis of nail Celiac artery dilatation (HCC) Other specified disorders of arteries and arterioles Essential hypertension, benign Other hyperlipidemia CML (chronic myeloid leukemia) (HCC) Chronic myeloid leukemia, without mention of having achieved remission MGUS (monoclonal gammopathy of unknown significance) Monoclonal paraproteinemia Smoldering myeloma Multiple myeloma, without mention of having achieved remission Multiple sclerosis (HCC) Multiple sclerosis Chronic obstructive pulmonary disease, unspecified COPD type (HCC) Attention deficit disorder, unspecified hyperactivity presence Bipolar affective disorder, current episode mixed, current episode severity unspecified (HCC) Gastroesophageal reflux disease without esophagitis Esophageal reflux Splenomegaly Fatty liver Other chronic nonalcoholic liver disease Tobacco use Tobacco use disorder Schizophrenia, unspecified type (HCC) Pre-operative examination- Primary Preoperative examination, unspecified Smoldering myeloma Multiple myeloma, without mention of having achieved remission Schizophrenia, unspecified type (HCC) Other hyperlipidemia Ocular migraine Other forms of migraine, without mention of intractable migraine without mention of status migrainosus Multiple sclerosis (HCC) Multiple sclerosis MGUS (monoclonal gammopathy of unknown significance) Monoclonal paraproteinemia Gastroesophageal reflux disease without esophagitis Esophageal reflux Fatty liver Other chronic nonalcoholic liver disease Essential hypertension, benign CML (chronic myeloid leukemia) (HCC) Chronic myeloid leukemia, without mention of having achieved remission Chronic obstructive pulmonary disease, unspecified COPD type (HCC) Celiac artery dilatation (HCC) Other specified disorders of arteries and arterioles Bipolar affective disorder, current episode mixed, current episode severity unspecified (HCC) Attention deficit disorder, unspecified hyperactivity presence Abdominal pain, generalized OAB (overactive bladder) Hypertonicity of bladder Splenomegaly Tobacco use Tobacco use disorder Hypercalcemia CML (chronic myelocytic leukemia) (HCC) Chronic myeloid leukemia, without mention of having achieved remission [facility] Pre-operative examination- Primary Preoperative examination, unspecified Onychomycosis Dermatophytosis of nail Celiac artery dilatation (HCC) Other specified disorders of arteries and arterioles Essential hypertension, benign Other hyperlipidemia CML (chronic myeloid leukemia) (HCC) Chronic myeloid leukemia, without mention of having achieved remission MGUS (monoclonal gammopathy of unknown significance) Monoclonal paraproteinemia Smoldering myeloma Multiple myeloma, without mention of having achieved remission Multiple sclerosis (HCC) Multiple sclerosis Chronic obstructive pulmonary disease, unspecified COPD type (HCC) Attention deficit disorder, unspecified hyperactivity presence Bipolar affective disorder, current episode mixed, current episode severity unspecified (HCC) Gastroesophageal reflux disease without esophagitis Esophageal reflux Splenomegaly Fatty liver Other chronic nonalcoholic liver disease Tobacco use Tobacco use disorder Schizophrenia, unspecified type (HCC) Pre-operative examination- Primary Preoperative examination, unspecified Smoldering myeloma Multiple myeloma, without mention of having achieved remission Schizophrenia, unspecified type (HCC) Other hyperlipidemia Ocular migraine Other forms of migraine, without mention of intractable migraine without mention of status migrainosus Multiple sclerosis (HCC) Multiple sclerosis MGUS (monoclonal gammopathy of unknown significance) Monoclonal paraproteinemia Gastroesophageal reflux disease without esophagitis Esophageal reflux Fatty liver Other chronic nonalcoholic liver disease Essential hypertension, benign CML (chronic myeloid leukemia) (HCC) Chronic myeloid leukemia, without mention of having achieved remission Chronic obstructive pulmonary disease, unspecified COPD type (HCC) Celiac artery dilatation (HCC) Other specified disorders of arteries and arterioles Bipolar affective disorder, current episode mixed, current episode severity unspecified (HCC) Attention deficit disorder, unspecified hyperactivity presence Abdominal pain, generalized OAB (overactive bladder) Hypertonicity of bladder Splenomegaly Tobacco use Tobacco use disorder Hypercalcemia CML (chronic myelocytic leukemia) (HCC) Chronic myeloid leukemia, without mention of having achieved remission [facility] Diagnosis CML (chronic myeloid leukemia) (HCC) Chronic myeloid leukemia, without mention of having achieved remission Pre-operative examination- Primary Preoperative examination, unspecified Onychomycosis Dermatophytosis of nail Celiac artery dilatation (HCC) Other specified disorders of arteries and arterioles Essential hypertension, benign Other hyperlipidemia CML (chronic myeloid leukemia) (HCC) Chronic myeloid leukemia, without mention of having achieved remission MGUS (monoclonal gammopathy of unknown significance) Monoclonal paraproteinemia Smoldering myeloma Multiple myeloma, without mention of having achieved remission Multiple sclerosis (HCC) Multiple sclerosis Chronic obstructive pulmonary disease, unspecified COPD type (HCC) Attention deficit disorder, unspecified hyperactivity presence Bipolar affective disorder, current episode mixed, current episode severity unspecified (HCC) Gastroesophageal reflux disease without esophagitis Esophageal reflux Splenomegaly Fatty liver Other chronic nonalcoholic liver disease Tobacco use Tobacco use disorder Schizophrenia, unspecified type (HCC) Pre-operative examination- Primary Preoperative examination, unspecified Smoldering myeloma Multiple myeloma, without mention of having achieved remission Schizophrenia, unspecified type (HCC) Other hyperlipidemia Ocular migraine Other forms of migraine, without mention of intractable migraine without mention of status migrainosus Multiple sclerosis (HCC) Multiple sclerosis MGUS (monoclonal gammopathy of unknown significance) Monoclonal paraproteinemia Gastroesophageal reflux disease without esophagitis Esophageal reflux Fatty liver Other chronic nonalcoholic liver disease Essential hypertension, benign CML (chronic myeloid leukemia) (HCC) Chronic myeloid leukemia, without mention of having achieved remission Chronic obstructive pulmonary disease, unspecified COPD type (HCC) Celiac artery dilatation (HCC) Other specified disorders of arteries and arterioles Bipolar affective disorder, current episode mixed, current episode severity unspecified (HCC) Attention deficit disorder, unspecified hyperactivity presence Abdominal pain, generalized OAB (overactive bladder) Hypertonicity of bladder Splenomegaly Tobacco use Tobacco use disorder [facility] Diagnosis Pre-operative examination- Primary Preoperative examination, unspecified Onychomycosis Dermatophytosis of nail Celiac artery dilatation (HCC) Other specified disorders of arteries and arterioles Essential hypertension, benign Other hyperlipidemia CML (chronic myeloid leukemia) (HCC) Chronic myeloid leukemia, without mention of having achieved remission MGUS (monoclonal gammopathy of unknown significance) Monoclonal paraproteinemia Smoldering myeloma Multiple myeloma, without mention of having achieved remission Multiple sclerosis (HCC) Multiple sclerosis Chronic obstructive pulmonary disease, unspecified COPD type (HCC) Attention deficit disorder, unspecified hyperactivity presence Bipolar affective disorder, current episode mixed, current episode severity unspecified (HCC) Gastroesophageal reflux disease without esophagitis Esophageal reflux Splenomegaly Fatty liver Other chronic nonalcoholic liver disease Tobacco use Tobacco use disorder Schizophrenia, unspecified type (HCC) Pre-operative examination- Primary Preoperative examination, unspecified Smoldering myeloma Multiple myeloma, without mention of having achieved remission Schizophrenia, unspecified type (HCC) Other hyperlipidemia Ocular migraine Other forms of migraine, without mention of intractable migraine without mention of status migrainosus Multiple sclerosis (HCC) Multiple sclerosis MGUS (monoclonal gammopathy of unknown significance) Monoclonal paraproteinemia Gastroesophageal reflux disease without esophagitis Esophageal reflux Fatty liver Other chronic nonalcoholic liver disease Essential hypertension, benign CML (chronic myeloid leukemia) (HCC) Chronic myeloid leukemia, without mention of having achieved remission Chronic obstructive pulmonary disease, unspecified COPD type (HCC) Celiac artery dilatation (HCC) Other specified disorders of arteries and arterioles Bipolar affective disorder, current episode mixed, current episode severity unspecified (HCC) Attention deficit disorder, unspecified hyperactivity presence Abdominal pain, generalized OAB (overactive bladder) Hypertonicity of bladder Splenomegaly Tobacco use Tobacco use disorder CML (chronic myelocytic leukemia) (HCC)- Primary Chronic myeloid leukemia, without mention of having achieved remission Smoldering myeloma Multiple myeloma, without mention of having achieved remission [facility] Diagnosis Pre-operative examination- Primary Preoperative examination, unspecified Onychomycosis Dermatophytosis of nail Celiac artery dilatation (HCC) Other specified disorders of arteries and arterioles Essential hypertension, benign Other hyperlipidemia CML (chronic myeloid leukemia) (HCC) Chronic myeloid leukemia, without mention of having achieved remission MGUS (monoclonal gammopathy of unknown significance) Monoclonal paraproteinemia Smoldering myeloma Multiple myeloma, without mention of having achieved remission Multiple sclerosis (HCC) Multiple sclerosis Chronic obstructive pulmonary disease, unspecified COPD type (HCC) Attention deficit disorder, unspecified hyperactivity presence Bipolar affective disorder, current episode mixed, current episode severity unspecified (HCC) Gastroesophageal reflux disease without esophagitis Esophageal reflux Splenomegaly Fatty liver Other chronic nonalcoholic liver disease Tobacco use Tobacco use disorder Schizophrenia, unspecified type (HCC) Pre-operative examination- Primary Preoperative examination, unspecified Smoldering myeloma Multiple myeloma, without mention of having achieved remission Schizophrenia, unspecified type (HCC) Other hyperlipidemia Ocular migraine Other forms of migraine, without mention of intractable migraine without mention of status migrainosus Multiple sclerosis (HCC) Multiple sclerosis MGUS (monoclonal gammopathy of unknown significance) Monoclonal paraproteinemia Gastroesophageal reflux disease without esophagitis Esophageal reflux Fatty liver Other chronic nonalcoholic liver disease Essential hypertension, benign CML (chronic myeloid leukemia) (HCC) Chronic myeloid leukemia, without mention of having achieved remission Chronic obstructive pulmonary disease, unspecified COPD type (HCC) Celiac artery dilatation (HCC) Other specified disorders of arteries and arterioles Bipolar affective disorder, current episode mixed, current episode severity unspecified (HCC) Attention deficit disorder, unspecified hyperactivity presence Abdominal pain, generalized OAB (overactive bladder) Hypertonicity of bladder Splenomegaly Tobacco use Tobacco use disorder CML (chronic myelocytic leukemia) (HCC)- Primary Chronic myeloid leukemia, without mention of having achieved remission [facility] Diagnosis Pre-operative examination- Primary Preoperative examination, unspecified Onychomycosis Dermatophytosis of nail Celiac artery dilatation (HCC) Other specified disorders of arteries and arterioles Essential hypertension, benign Other hyperlipidemia CML (chronic myeloid leukemia) (HCC) Chronic myeloid leukemia, without mention of having achieved remission MGUS (monoclonal gammopathy of unknown significance) Monoclonal paraproteinemia Smoldering myeloma Multiple myeloma, without mention of having achieved remission Multiple sclerosis (HCC) Multiple sclerosis Chronic obstructive pulmonary disease, unspecified COPD type (HCC) Attention deficit disorder, unspecified hyperactivity presence Bipolar affective disorder, current episode mixed, current episode severity unspecified (HCC) Gastroesophageal reflux disease without esophagitis Esophageal reflux Splenomegaly Fatty liver Other chronic nonalcoholic liver disease Tobacco use Tobacco use disorder Schizophrenia, unspecified type (HCC) Pre-operative examination- Primary Preoperative examination, unspecified Smoldering myeloma Multiple myeloma, without mention of having achieved remission Schizophrenia, unspecified type (HCC) Other hyperlipidemia Ocular migraine Other forms of migraine, without mention of intractable migraine without mention of status migrainosus Multiple sclerosis (HCC) Multiple sclerosis MGUS (monoclonal gammopathy of unknown significance) Monoclonal paraproteinemia Gastroesophageal reflux disease without esophagitis Esophageal reflux Fatty liver Other chronic nonalcoholic liver disease Essential hypertension, benign CML (chronic myeloid leukemia) (HCC) Chronic myeloid leukemia, without mention of having achieved remission Chronic obstructive pulmonary disease, unspecified COPD type (HCC) Celiac artery dilatation (HCC) Other specified disorders of arteries and arterioles Bipolar affective disorder, current episode mixed, current episode severity unspecified (HCC) Attention deficit disorder, unspecified hyperactivity presence Abdominal pain, generalized OAB (overactive bladder) Hypertonicity of bladder Splenomegaly Tobacco use Tobacco use disorder Encounter for screening for lung cancer- Primary Tobacco use current [facility] Diagnosis Pre-operative examination- Primary Preoperative examination, unspecified Onychomycosis Dermatophytosis of nail Celiac artery dilatation (HCC) Other specified disorders of arteries and arterioles Essential hypertension, benign Other hyperlipidemia CML (chronic myeloid leukemia) (HCC) Chronic myeloid leukemia, without mention of having achieved remission MGUS (monoclonal gammopathy of unknown significance) Monoclonal paraproteinemia Smoldering myeloma Multiple myeloma, without mention of having achieved remission Multiple sclerosis (HCC) Multiple sclerosis Chronic obstructive pulmonary disease, unspecified COPD type (HCC) Attention deficit disorder, unspecified hyperactivity presence Bipolar affective disorder, current episode mixed, current episode severity unspecified (HCC) Gastroesophageal reflux disease without esophagitis Esophageal reflux Splenomegaly Fatty liver Other chronic nonalcoholic liver disease Tobacco use Tobacco use disorder Schizophrenia, unspecified type (HCC) Pre-operative examination- Primary Preoperative examination, unspecified Smoldering myeloma Multiple myeloma, without mention of having achieved remission Schizophrenia, unspecified type (HCC) Other hyperlipidemia Ocular migraine Other forms of migraine, without mention of intractable migraine without mention of status migrainosus Multiple sclerosis (HCC) Multiple sclerosis MGUS (monoclonal gammopathy of unknown significance) Monoclonal paraproteinemia Gastroesophageal reflux disease without esophagitis Esophageal reflux Fatty liver Other chronic nonalcoholic liver disease Essential hypertension, benign CML (chronic myeloid leukemia) (HCC) Chronic myeloid leukemia, without mention of having achieved remission Chronic obstructive pulmonary disease, unspecified COPD type (HCC) Celiac artery dilatation (HCC) Other specified disorders of arteries and arterioles Bipolar affective disorder, current episode mixed, current episode severity unspecified (HCC) Attention deficit disorder, unspecified hyperactivity presence Abdominal pain, generalized OAB (overactive bladder) Hypertonicity of bladder Splenomegaly Tobacco use Tobacco use disorder Encounter for screening for lung cancer Tobacco use current [facility] Diagnosis Pre-operative examination- Primary Preoperative examination, unspecified Onychomycosis Dermatophytosis of nail Celiac artery dilatation (HCC) Other specified disorders of arteries and arterioles Essential hypertension, benign Other hyperlipidemia CML (chronic myeloid leukemia) (HCC) Chronic myeloid leukemia, without mention of having achieved remission MGUS (monoclonal gammopathy of unknown significance) Monoclonal paraproteinemia Smoldering myeloma Multiple myeloma, without mention of having achieved remission Multiple sclerosis (HCC) Multiple sclerosis Chronic obstructive pulmonary disease, unspecified COPD type (HCC) Attention deficit disorder, unspecified hyperactivity presence Bipolar affective disorder, current episode mixed, current episode severity unspecified (HCC) Gastroesophageal reflux disease without esophagitis Esophageal reflux Splenomegaly Fatty liver Other chronic nonalcoholic liver disease Tobacco use Tobacco use disorder Schizophrenia, unspecified type (HCC) Pre-operative examination- Primary Preoperative examination, unspecified Smoldering myeloma Multiple myeloma, without mention of having achieved remission Schizophrenia, unspecified type (HCC) Other hyperlipidemia Ocular migraine Other forms of migraine, without mention of intractable migraine without mention of status migrainosus Multiple sclerosis (HCC) Multiple sclerosis MGUS (monoclonal gammopathy of unknown significance) Monoclonal paraproteinemia Gastroesophageal reflux disease without esophagitis Esophageal reflux Fatty liver Other chronic nonalcoholic liver disease Essential hypertension, benign CML (chronic myeloid leukemia) (HCC) Chronic myeloid leukemia, without mention of having achieved remission Chronic obstructive pulmonary disease, unspecified COPD type (HCC) Celiac artery dilatation (HCC) Other specified disorders of arteries and arterioles Bipolar affective disorder, current episode mixed, current episode severity unspecified (HCC) Attention deficit disorder, unspecified hyperactivity presence Abdominal pain, generalized OAB (overactive bladder) Hypertonicity of bladder Splenomegaly Tobacco use Tobacco use disorder Lung nodule- Primary Solitary pulmonary nodule Encounter for screening for lung cancer Tobacco use current [facility] Diagnosis Pre-operative examination- Primary Preoperative examination, unspecified Onychomycosis Dermatophytosis of nail Celiac artery dilatation (HCC) Other specified disorders of arteries and arterioles Essential hypertension, benign Other hyperlipidemia CML (chronic myeloid leukemia) (HCC) Chronic myeloid leukemia, without mention of having achieved remission MGUS (monoclonal gammopathy of unknown significance) Monoclonal paraproteinemia Smoldering myeloma Multiple myeloma, without mention of having achieved remission Multiple sclerosis (HCC) Multiple sclerosis Chronic obstructive pulmonary disease, unspecified COPD type (HCC) Attention deficit disorder, unspecified hyperactivity presence Bipolar affective disorder, current episode mixed, current episode severity unspecified (HCC) Gastroesophageal reflux disease without esophagitis Esophageal reflux Splenomegaly Fatty liver Other chronic nonalcoholic liver disease Tobacco use Tobacco use disorder Schizophrenia, unspecified type (HCC) Pre-operative examination- Primary Preoperative examination, unspecified Smoldering myeloma Multiple myeloma, without mention of having achieved remission Schizophrenia, unspecified type (HCC) Other hyperlipidemia Ocular migraine Other forms of migraine, without mention of intractable migraine without mention of status migrainosus Multiple sclerosis (HCC) Multiple sclerosis MGUS (monoclonal gammopathy of unknown significance) Monoclonal paraproteinemia Gastroesophageal reflux disease without esophagitis Esophageal reflux Fatty liver Other chronic nonalcoholic liver disease Essential hypertension, benign CML (chronic myeloid leukemia) (HCC) Chronic myeloid leukemia, without mention of having achieved remission Chronic obstructive pulmonary disease, unspecified COPD type (HCC) Celiac artery dilatation (HCC) Other specified disorders of arteries and arterioles Bipolar affective disorder, current episode mixed, current episode severity unspecified (HCC) Attention deficit disorder, unspecified hyperactivity presence Abdominal pain, generalized OAB (overactive bladder) Hypertonicity of bladder Splenomegaly Tobacco use Tobacco use disorder CML (chronic myeloid leukemia) (HCC) Chronic myeloid leukemia, without mention of having achieved remission [facility] Pre-operative examination- Primary Preoperative examination, unspecified Onychomycosis Dermatophytosis of nail Celiac artery dilatation (HCC) Other specified disorders of arteries and arterioles Essential hypertension, benign Other hyperlipidemia CML (chronic myeloid leukemia) (HCC) Chronic myeloid leukemia, without mention of having achieved remission MGUS (monoclonal gammopathy of unknown significance) Monoclonal paraproteinemia Smoldering myeloma Multiple myeloma, without mention of having achieved remission Multiple sclerosis (HCC) Multiple sclerosis Chronic obstructive pulmonary disease, unspecified COPD type (HCC) Attention deficit disorder, unspecified hyperactivity presence Bipolar affective disorder, current episode mixed, current episode severity unspecified (HCC) Gastroesophageal reflux disease without esophagitis Esophageal reflux Splenomegaly Fatty liver Other chronic nonalcoholic liver disease Tobacco use Tobacco use disorder Schizophrenia, unspecified type (HCC) Pre-operative examination- Primary Preoperative examination, unspecified Smoldering myeloma Multiple myeloma, without mention of having achieved remission Schizophrenia, unspecified type (HCC) Other hyperlipidemia Ocular migraine Other forms of migraine, without mention of intractable migraine without mention of status migrainosus Multiple sclerosis (HCC) Multiple sclerosis MGUS (monoclonal gammopathy of unknown significance) Monoclonal paraproteinemia Gastroesophageal reflux disease without esophagitis Esophageal reflux Fatty liver Other chronic nonalcoholic liver disease Essential hypertension, benign CML (chronic myeloid leukemia) (HCC) Chronic myeloid leukemia, without mention of having achieved remission Chronic obstructive pulmonary disease, unspecified COPD type (HCC) Celiac artery dilatation (HCC) Other specified disorders of arteries and arterioles Bipolar affective disorder, current episode mixed, current episode severity unspecified (HCC) Attention deficit disorder, unspecified hyperactivity presence Abdominal pain, generalized OAB (overactive bladder) Hypertonicity of bladder Splenomegaly Tobacco use Tobacco use disorder CML (chronic myelocytic leukemia) (HCC)- Primary Chronic myeloid leukemia, without mention of having achieved remission [facility] Diagnosis Pre-operative examination- Primary Preoperative examination, unspecified Onychomycosis Dermatophytosis of nail Celiac artery dilatation (HCC) Other specified disorders of arteries and arterioles Essential hypertension, benign Other hyperlipidemia CML (chronic myeloid leukemia) (HCC) Chronic myeloid leukemia, without mention of having achieved remission MGUS (monoclonal gammopathy of unknown significance) Monoclonal paraproteinemia Smoldering myeloma Multiple myeloma, without mention of having achieved remission Multiple sclerosis (HCC) Multiple sclerosis Chronic obstructive pulmonary disease, unspecified COPD type (HCC) Attention deficit disorder, unspecified hyperactivity presence Bipolar affective disorder, current episode mixed, current episode severity unspecified (HCC) Gastroesophageal reflux disease without esophagitis Esophageal reflux Splenomegaly Fatty liver Other chronic nonalcoholic liver disease Tobacco use Tobacco use disorder Schizophrenia, unspecified type (HCC) Pre-operative examination- Primary Preoperative examination, unspecified Smoldering myeloma Multiple myeloma, without mention of having achieved remission Schizophrenia, unspecified type (HCC) Other hyperlipidemia Ocular migraine Other forms of migraine, without mention of intractable migraine without mention of status migrainosus Multiple sclerosis (HCC) Multiple sclerosis MGUS (monoclonal gammopathy of unknown significance) Monoclonal paraproteinemia Gastroesophageal reflux disease without esophagitis Esophageal reflux Fatty liver Other chronic nonalcoholic liver disease Essential hypertension, benign CML (chronic myeloid leukemia) (HCC) Chronic myeloid leukemia, without mention of having achieved remission Chronic obstructive pulmonary disease, unspecified COPD type (HCC) Celiac artery dilatation (HCC) Other specified disorders of arteries and arterioles Bipolar affective disorder, current episode mixed, current episode severity unspecified (HCC) Attention deficit disorder, unspecified hyperactivity presence Abdominal pain, generalized OAB (overactive bladder) Hypertonicity of bladder Splenomegaly Tobacco use Tobacco use disorder Essential hypertension, benign- Primary Attention or concentration deficit Multiple sclerosis (HCC) Multiple sclerosis Bilateral leg pain Pain in limb Multiple sclerosis, relapsing-remitting (HCC) Multiple sclerosis RLS (restless legs syndrome) Restless legs syndrome (RLS) Malaise and fatigue Other malaise and fatigue Imbalance Abnormality of gait KNOX (dyspnea on exertion) Other dyspnea and respiratory abnormality LVH (left ventricular hypertrophy) Cardiomegaly [facility] Diagnosis Pre-operative examination- Primary Preoperative examination, unspecified Onychomycosis Dermatophytosis of nail Celiac artery dilatation (HCC) Other specified disorders of arteries and arterioles Essential hypertension, benign Other hyperlipidemia CML (chronic myeloid leukemia) (HCC) Chronic myeloid leukemia, without mention of having achieved remission MGUS (monoclonal gammopathy of unknown significance) Monoclonal paraproteinemia Smoldering myeloma Multiple myeloma, without mention of having achieved remission Multiple sclerosis (HCC) Multiple sclerosis Chronic obstructive pulmonary disease, unspecified COPD type (HCC) Attention deficit disorder, unspecified hyperactivity presence Bipolar affective disorder, current episode mixed, current episode severity unspecified (HCC) Gastroesophageal reflux disease without esophagitis Esophageal reflux Splenomegaly Fatty liver Other chronic nonalcoholic liver disease Tobacco use Tobacco use disorder Schizophrenia, unspecified type (HCC) Pre-operative examination- Primary Preoperative examination, unspecified Smoldering myeloma Multiple myeloma, without mention of having achieved remission Schizophrenia, unspecified type (HCC) Other hyperlipidemia Ocular migraine Other forms of migraine, without mention of intractable migraine without mention of status migrainosus Multiple sclerosis (HCC) Multiple sclerosis MGUS (monoclonal gammopathy of unknown significance) Monoclonal paraproteinemia Gastroesophageal reflux disease without esophagitis Esophageal reflux Fatty liver Other chronic nonalcoholic liver disease Essential hypertension, benign CML (chronic myeloid leukemia) (HCC) Chronic myeloid leukemia, without mention of having achieved remission Chronic obstructive pulmonary disease, unspecified COPD type (HCC) Celiac artery dilatation (HCC) Other specified disorders of arteries and arterioles Bipolar affective disorder, current episode mixed, current episode severity unspecified (HCC) Attention deficit disorder, unspecified hyperactivity presence Abdominal pain, generalized OAB (overactive bladder) Hypertonicity of bladder Splenomegaly Tobacco use Tobacco use disorder Attention or concentration deficit [facility] Diagnosis Pre-operative examination- Primary Preoperative examination, unspecified Onychomycosis Dermatophytosis of nail Celiac artery dilatation (HCC) Other specified disorders of arteries and arterioles Essential hypertension, benign Other hyperlipidemia CML (chronic myeloid leukemia) (HCC) Chronic myeloid leukemia, without mention of having achieved remission MGUS (monoclonal gammopathy of unknown significance) Monoclonal paraproteinemia Smoldering myeloma Multiple myeloma, without mention of having achieved remission Multiple sclerosis (HCC) Multiple sclerosis Chronic obstructive pulmonary disease, unspecified COPD type (HCC) Attention deficit disorder, unspecified hyperactivity presence Bipolar affective disorder, current episode mixed, current episode severity unspecified (HCC) Gastroesophageal reflux disease without esophagitis Esophageal reflux Splenomegaly Fatty liver Other chronic nonalcoholic liver disease Tobacco use Tobacco use disorder Schizophrenia, unspecified type (HCC) Pre-operative examination- Primary Preoperative examination, unspecified Smoldering myeloma Multiple myeloma, without mention of having achieved remission Schizophrenia, unspecified type (HCC) Other hyperlipidemia Ocular migraine Other forms of migraine, without mention of intractable migraine without mention of status migrainosus Multiple sclerosis (HCC) Multiple sclerosis MGUS (monoclonal gammopathy of unknown significance) Monoclonal paraproteinemia Gastroesophageal reflux disease without esophagitis Esophageal reflux Fatty liver Other chronic nonalcoholic liver disease Essential hypertension, benign CML (chronic myeloid leukemia) (HCC) Chronic myeloid leukemia, without mention of having achieved remission Chronic obstructive pulmonary disease, unspecified COPD type (HCC) Celiac artery dilatation (HCC) Other specified disorders of arteries and arterioles Bipolar affective disorder, current episode mixed, current episode severity unspecified (HCC) Attention deficit disorder, unspecified hyperactivity presence Abdominal pain, generalized OAB (overactive bladder) Hypertonicity of bladder Splenomegaly Tobacco use Tobacco use disorder CML (chronic myelocytic leukemia) (HCC)- Primary Chronic myeloid leukemia, without mention of having achieved remission [facility] Diagnosis Pre-operative examination- Primary Preoperative examination, unspecified Onychomycosis Dermatophytosis of nail Celiac artery dilatation (HCC) Other specified disorders of arteries and arterioles Essential hypertension, benign Other hyperlipidemia CML (chronic myeloid leukemia) (HCC) Chronic myeloid leukemia, without mention of having achieved remission MGUS (monoclonal gammopathy of unknown significance) Monoclonal paraproteinemia Smoldering myeloma Multiple myeloma, without mention of having achieved remission Multiple sclerosis (HCC) Multiple sclerosis Chronic obstructive pulmonary disease, unspecified COPD type (HCC) Attention deficit disorder, unspecified hyperactivity presence Bipolar affective disorder, current episode mixed, current episode severity unspecified (HCC) Gastroesophageal reflux disease without esophagitis Esophageal reflux Splenomegaly Fatty liver Other chronic nonalcoholic liver disease Tobacco use Tobacco use disorder Schizophrenia, unspecified type (HCC) Pre-operative examination- Primary Preoperative examination, unspecified Smoldering myeloma Multiple myeloma, without mention of having achieved remission Schizophrenia, unspecified type (HCC) Other hyperlipidemia Ocular migraine Other forms of migraine, without mention of intractable migraine without mention of status migrainosus Multiple sclerosis (HCC) Multiple sclerosis MGUS (monoclonal gammopathy of unknown significance) Monoclonal paraproteinemia Gastroesophageal reflux disease without esophagitis Esophageal reflux Fatty liver Other chronic nonalcoholic liver disease Essential hypertension, benign CML (chronic myeloid leukemia) (HCC) Chronic myeloid leukemia, without mention of having achieved remission Chronic obstructive pulmonary disease, unspecified COPD type (HCC) Celiac artery dilatation (HCC) Other specified disorders of arteries and arterioles Bipolar affective disorder, current episode mixed, current episode severity unspecified (HCC) Attention deficit disorder, unspecified hyperactivity presence Abdominal pain, generalized OAB (overactive bladder) Hypertonicity of bladder Splenomegaly Tobacco use Tobacco use disorder CML (chronic myelocytic leukemia) (HCC)- Primary Chronic myeloid leukemia, without mention of having achieved remission [facility] Diagnosis Pre-operative examination- Primary Preoperative examination, unspecified Onychomycosis Dermatophytosis of nail Celiac artery dilatation (HCC) Other specified disorders of arteries and arterioles Essential hypertension, benign Other hyperlipidemia CML (chronic myeloid leukemia) (HCC) Chronic myeloid leukemia, without mention of having achieved remission MGUS (monoclonal gammopathy of unknown significance) Monoclonal paraproteinemia Smoldering myeloma Multiple myeloma, without mention of having achieved remission Multiple sclerosis (HCC) Multiple sclerosis Chronic obstructive pulmonary disease, unspecified COPD type (HCC) Attention deficit disorder, unspecified hyperactivity presence Bipolar affective disorder, current episode mixed, current episode severity unspecified (HCC) Gastroesophageal reflux disease without esophagitis Esophageal reflux Splenomegaly Fatty liver Other chronic nonalcoholic liver disease Tobacco use Tobacco use disorder Schizophrenia, unspecified type (HCC) Pre-operative examination- Primary Preoperative examination, unspecified Smoldering myeloma Multiple myeloma, without mention of having achieved remission Schizophrenia, unspecified type (HCC) Other hyperlipidemia Ocular migraine Other forms of migraine, without mention of intractable migraine without mention of status migrainosus Multiple sclerosis (HCC) Multiple sclerosis MGUS (monoclonal gammopathy of unknown significance) Monoclonal paraproteinemia Gastroesophageal reflux disease without esophagitis Esophageal reflux Fatty liver Other chronic nonalcoholic liver disease Essential hypertension, benign CML (chronic myeloid leukemia) (HCC) Chronic myeloid leukemia, without mention of having achieved remission Chronic obstructive pulmonary disease, unspecified COPD type (HCC) Celiac artery dilatation (HCC) Other specified disorders of arteries and arterioles Bipolar affective disorder, current episode mixed, current episode severity unspecified (HCC) Attention deficit disorder, unspecified hyperactivity presence Abdominal pain, generalized OAB (overactive bladder) Hypertonicity of bladder Splenomegaly Tobacco use Tobacco use disorder CML (chronic myelocytic leukemia) (HCC)- Primary Chronic myeloid leukemia, without mention of having achieved remission Smoldering myeloma Multiple myeloma, without mention of having achieved remission [facility] Diagnosis Pre-operative examination- Primary Preoperative examination, unspecified Onychomycosis Dermatophytosis of nail Celiac artery dilatation (HCC) Other specified disorders of arteries and arterioles Essential hypertension, benign Other hyperlipidemia CML (chronic myeloid leukemia) (HCC) Chronic myeloid leukemia, without mention of having achieved remission MGUS (monoclonal gammopathy of unknown significance) Monoclonal paraproteinemia Smoldering myeloma Multiple myeloma, without mention of having achieved remission Multiple sclerosis (HCC) Multiple sclerosis Chronic obstructive pulmonary disease, unspecified COPD type (HCC) Attention deficit disorder, unspecified hyperactivity presence Bipolar affective disorder, current episode mixed, current episode severity unspecified (HCC) Gastroesophageal reflux disease without esophagitis Esophageal reflux Splenomegaly Fatty liver Other chronic nonalcoholic liver disease Tobacco use Tobacco use disorder Schizophrenia, unspecified type (HCC) Pre-operative examination- Primary Preoperative examination, unspecified Smoldering myeloma Multiple myeloma, without mention of having achieved remission Schizophrenia, unspecified type (HCC) Other hyperlipidemia Ocular migraine Other forms of migraine, without mention of intractable migraine without mention of status migrainosus Multiple sclerosis (HCC) Multiple sclerosis MGUS (monoclonal gammopathy of unknown significance) Monoclonal paraproteinemia Gastroesophageal reflux disease without esophagitis Esophageal reflux Fatty liver Other chronic nonalcoholic liver disease Essential hypertension, benign CML (chronic myeloid leukemia) (HCC) Chronic myeloid leukemia, without mention of having achieved remission Chronic obstructive pulmonary disease, unspecified COPD type (HCC) Celiac artery dilatation (HCC) Other specified disorders of arteries and arterioles Bipolar affective disorder, current episode mixed, current episode severity unspecified (HCC) Attention deficit disorder, unspecified hyperactivity presence Abdominal pain, generalized OAB (overactive bladder) Hypertonicity of bladder Splenomegaly Tobacco use Tobacco use disorder Medicare annual wellness visit, subsequent- Primary Routine general medical examination at a health care facility Attention or concentration deficit Multiple sclerosis (HCC) Multiple sclerosis Bilateral leg pain Pain in limb Multiple sclerosis, relapsing-remitting (HCC) Multiple sclerosis RLS (restless legs syndrome) Restless legs syndrome (RLS) Malaise and fatigue Other malaise and fatigue Imbalance Abnormality of gait Hypothyroidism, acquired Unspecified hypothyroidism Vitamin D deficiency Unspecified vitamin D deficiency Vitamin B12 deficiency Other B-complex deficiencies Fatigue, unspecified type Immunocompromised state (HCC) Unspecified immunity deficiency Essential hypertension, benign CML (chronic myeloid leukemia) (HCC) Chronic myeloid leukemia, without mention of having achieved remission Screening for AAA (abdominal aortic aneurysm) Screening for other and unspecified cardiovascular conditions Carotid atherosclerosis, bilateral [facility] Author Charly Parada [facility] May 15, 2023 7:13am Note Date/Time May 15, 2023 7:13 am [facility] Medical Records Department [address] [place] [address] History & Physical Exam 05/15/2312 MR#: [id number] Acct: [id number] Name: OTONIEL VICTORIA Rep #:[id number] : 1970 52 From: Charly Parada DO PCP: Dr. Noman Dean, DO Status:[facility] Location: [place] [address] History and Physical Date of Admission: 05/15/23 52 M who presents to the office today referred by [facility] Pul[facility] for GERD and dysphagia. He also reports chronic upper abd discomfort. He reports difficulty swallowing in 10/2022; feels like something gets caught in his throat. Doesn't occur with drinking, but does occur sometimes with eating, no particular foods. Doesn't vomit or regurgitate. He recalls an abnormality seen in stomach and esophagus on CT in 2021 at [facility]. Stomach issues began in 2019. 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 Had EGD and colonoscopy in 12/2020, had stomach ulcers, was put on omeprazole (had been takenoff it when he was treated for leukemia). Pt recalls being told the colonoscopy wasn't completed. EGD was repeated in 01/2021, he reports ulcers were improving. Another EGD in 2020 showed ulcers had healed. He reports no dysphagia when most recent EGD was done in 08/2022. But he was still having stomach upset; can feel almost like nausea; it is constant. The only relief he gets is from Mylanta. Even water can irritate stomach. No vomiting. Has early satiety. Gets bloated. Symptoms never resolved with treatment of PUD. Was only having a BM once a week. Mylanta helps with constipation too. Has BM 1- 2x per day now, no straining, can be soft or sometimes diarrhea. 03/08/22 UGI with SBFT: normal 08/13/[address] Garcia at [facility]--normal esophagus, normal stomach, normal duodenum, no specimens collected Exam Const General: cooperative, healthy appearing and comfortable Nutritional Appearance: average body habitus Orientation: alert, awake and oriented x3 Eyes Sclera: sclerae normal Resp Effort & Inspection: normal respiratory effort GI Inspection: normal to inspection Palpation: soft, no hepatosplenomegaly, no masses and tender in the RUQ Neuro Gait: normal gait Psych Mood: congruent mood Quality Reporting Tobacco Screening ([facility] 138) Smoking Status: Current every day smoker Assessment and Plan Assessment and Plan (1) Epigastric abdominal pain: ?Status:?Chronic ?Plan: 52 yr old male with 5 mos of oropharyngeal/upper esophageal dysphagia and several years of upper abd discomfort/nausea. Only relief he gets is from Mylanta. He is on PPI. I will review CT images (he reports something was seen onesophagus and stomach in [address]), the reports from 2020 EGDs and colonoscopy, gastric emptying study, labs. EGD to eval dysphagia, epigastric discomfort, office f/u after EGD. (2) Dysphagia: ?Status:?Chronic ?Plan: as above I have examined the patient and the H&P has been reviewed. There are no clinicalchanges since date of exam. 05/15/23 0713 <Electronically signed by Charly Parada DO> Cosigner Signature (if applicable): CC: Dr. Noman Dean, DO; Charly Parada, DO~ Signed [facility] Work Phone: Reason for referral (narrative)* Diagnostic Procedure Only (Routine) - Pending Review Specialty Diagnoses / Procedures Referred By Contac t Referred To Contact XR IMAGING Diagnoses Bilateral elbow joint pain Procedures XR ELBOW GENERAL 2V AP/LAT LEFT RADEX ELBOW 2 VIEWS Jersey Cole MD [address] [facility] [place] [address] Xr Imaging Referral ID Status Reason Start Date Expiration Date Visits Requested Visits Authorized [id number] Pending Review Auto-Generat ed Referral 02/27/2022 03/29/2023 1 1 * Diagnostic Procedure Only (Routine) - Pending Review Specialty Diagnoses / Procedures Referred By Contac t Referred To Contact XR IMAGING Diagnoses Bilateral elbow joint pain Procedures XR ELBOW GENERAL 2V AP/LAT RIGHT RADEX ELBOW 2 VIEWS Jersey Cole MD [address] [facility] [place] [address] Xr Imaging Referral ID Status Reason Start Date Expiration Date Visits Requested Visits Authorized [id number] Pending Review Auto-Generat ed Referral 02/27/2022 03/29/2023 1 1 [facility] for referral (narrative)* Diagnostic Procedure Only (Routine) - Pending Review Specialty Diagnoses / Procedures Referred By Contac t Referred To Contact XR IMAGING Diagnoses Abdominal pain, unspecified abdominal location Procedures XR GI SMALL BOWEL FOLLOW-THRU RADIOLOGIC SMALL INTESTINE FOLLOW-THROUGH STUDY Ny Rodriguez APRN.CNP [address] [place] [id number] Xr Imaging Referral ID Status Reason Start Date Expiration Date Visits Requested Visits Authorized [id number] Pending Review Auto-Generat ed Referral 03/01/2022 03/31/2023 1 1 * Diagnostic Procedure Only (Routine) - Pending Review Specialty Diagnoses / Procedures Referred By Contac t Referred To Contact XR IMAGING Diagnoses Abdominal pain, unspecified abdominal location Procedures XR UPPER GI SINGLE CONTRAST RADIOLOGIC EXAM UPR GI TRC SINGLE CONTRAST STUDY Ny Rodriguez APRN.[facility] [employer] [address] [place] [address] Xr Imaging Referral ID Status Reason Start Date Expiration Date Visits Requested Visits Authorized [id number] Pending Review Auto-Generat ed Referral 03/15/2022 03/31/2023 1 1 [facility] for referral (narrative)* Diagnostic Procedure Only (Routine) - Closed Specialty Diagnoses / Procedures Referred By Contac t Referred To Contact XR IMAGING Diagnoses Bilateral elbow joint pain Procedures XR ELBOW GENERAL 2V AP/LAT LEFT RADEX ELBOW 2 VIEWS Jersey Cole MD [address] [place] [address] Xr Imaging Referral ID Status Reason Start Date Expiration Date V isits Requested Visits Authorized [id number] Closed Auto-Generate d Referral 02/27/2022 03/29/2023 1 1 * Diagnostic Procedure Only (Routine) - Closed Specialty Diagnoses / Procedures Referred By Contac t Referred To Contact XR IMAGING Diagnoses Bilateral elbow joint pain Procedures XR ELBOW GENERAL 2V AP/LAT RIGHT RADEX ELBOW 2 VIEWS Jersey Cole MD [address] [place] [address] Xr Imaging Referral ID Status Reason Start Date Expiration Date V isits Requested Visits Authorized [id number] Closed Auto-Generate d Referral 02/27/2022 03/29/2023 1 1 [facility] for referral (narrative)* Diagnostic Procedure Only (Routine) - Closed Specialty Diagnoses / Procedures Referred By Contac t Referred To Contact MOLECULAR & FUNCTIONAL IMAGING Diagnoses Chest pain, unspecified type Procedures NM CARDIAC PERF STRESS/PHARM MYOCARDIAL SPECT MULTIPLE STUDIES Noman Dean, DO [address] [place] [address] Molecular & Functional Imaging [address] [place] [id number] Referral ID Status Reason Start Date Expiration Date V isits Requested Visits Authorized [id number] Closed Auto-Generate d Referral 02/13/2022 03/15/2023 1 1 [facility] for referral (narrative)* Outpatient Procedure (Routine) - Pending Review Specialty Diagnoses / Procedures Referred By Contac t Referred To [facility] Diagnoses Gastroesophageal reflux disease without esophagitis History of peptic ulcer disease Pain of upper abdomen Procedures EGD DIAGNOSTIC EGD DIAGNOSTIC EGD DIAGNOSTIC ESOPHAGOGASTRODUODENOSC OPY TRANSORAL DIAGNOSTIC ESOPHAGOGASTRODUODENOSC OPY TRANSORAL DIAGNOSTIC ESOPHAGOGASTRODUODENOSC OPY TRANSORAL DIAGNOSTIC Ny Rodriguez APRN.TRIAL [address] JUSTICE [address] [place] [address] [place] [id number] Referral ID Status Reason Start Date Expiration Date Visits Requested Visits Authorized [id number] Pending Review Auto-Generat ed Referral 05/21/2022 05/21/2023 1 1 [facility] for referral (narrative)* Outpatient Procedure (Routine) - Pending Review Specialty Diagnoses / Procedures Referred By Marissa german Referred To [facility] Diagnoses History of peptic ulcer disease Gastroesophageal reflux disease without esophagitis Procedures EGD DIAGNOSTIC ESOPHAGOGASTRODUODENOSC OPY TRANSORAL DIAGNOSTIC Ny Rodriguez APRN.TRIAL COURT JUSTICE [address] [place] [address] [facility] [address] [place] [address] Referral ID Status Reason Start Date Expiration Date Visits Requested Visits Authorized [id number] Pending Review Auto-Generat ed Referral 07/03/2022 07/03/2023 1 1 [facility] for referral (narrative)* Outpatient Procedure (Routine) - Authorized Specialty Diagnoses / Procedures Referred By Contac t Referred To [facility] Diagnoses Abdominal pain, unspecified abdominal location Gastroesophageal reflux disease without esophagitis History of peptic ulcer disease Procedures EGD DIAGNOSTIC ESOPHAGOGASTRODUODENOSC OPY TRANSORAL DIAGNOSTIC Ny Rodriguez APRN.TRIAL COURT JUSTICE [address] [place] [address] [facility] [address] [place] [address] Referral ID Status Reason Start Date Expiration Date Visits Requested Visits Authorized [id number] Authorized Auto-Generat ed Referral 07/18/2022 07/18/2023 1 1 [facility] for referral (narrative)* Outpatient Procedure (Routine) - Closed Specialty Diagnoses / Procedures Referred By Contac t Referred To [facility] Diagnoses Abdominal pain, unspecified abdominal location Gastroesophageal reflux disease without esophagitis History of peptic ulcer disease Procedures EGD DIAGNOSTIC ESOPHAGOGASTRODUODENOSC OPY TRANSORAL DIAGNOSTIC Ny Rodriguez APRN.TRIAL COURT JUSTICE [address] [place] [address] [address] Referral ID Status Reason Start Date Expiration Date V isits Requested Visits Authorized [id number] Closed Auto-Generate d Referral 07/18/2022 07/18/2023 1 1 [facility] for referral (narrative)* Outpatient Procedure (Routine) - Pending Review Specialty Diagnoses / Procedures Referred By Contac t Referred To [facility] Diagnoses CML (chronic myeloid leukemia) (HCC) Smoldering myeloma Procedures ECG COMPLETE ECG ROUTINE ECG W/LEAST 12 LDS W/I&R Otoniel Heaton DO [address] [place] [address] [facility] [address] [place] [address] Referral ID Status Reason Start Date Expiration Date Visits Requested Visits Authorized [id number] Pending Review Auto-Generat ed Referral 03/17/2023 03/13/2024 1 1 [facility] for referral (narrative)* Diagnostic Procedure Only (Routine) - Authorized Specialty Diagnoses / Procedures Referred By Contac t Referred To Contact MOLECULAR & FUNCTIONAL IMAGING Diagnoses Tachypnea Chest pain, unspecified type Procedures NM CARDIAC PERF STRESS/EXERCISE MYOCARDIAL SPECT MULTIPLE STUDIES Andrey Art APRN.CNP [address] [place] [address] Molecular [facility] Functional Imaging [address] [place] [address] Referral ID Status Reason Start Date Expiration Date Visits Requested Visits Authorized [id number] Authorized Auto-Generat ed Referral 06/26/2023 07/25/2024 1 1 [facility] for referral (narrative)* Diagnostic Procedure Only (Routine) - Closed Specialty Diagnoses / Procedures Referred By Contac t Referred To Contact XR IMAGING Diagnoses Foot pain, bilateral Procedures XR FOOT GENERAL 3V AP/LAT/OBL BILATERAL RADEX FOOT COMPLETE MINIMUM 3 VIEWS Noman Dean DO [address] [place] [address] [place] [address] Referral ID Status Reason Start Date Expiration Date V isits Requested Visits Authorized [id number] Closed Auto-Generate d Referral 02/04/2024 03/05/2025 1 1 [facility] for referral (narrative)* Diagnostic Procedure Only (Routine) - Closed Specialty Diagnoses / Procedures Referred By Contac t Referred To Contact XR IMAGING Diagnoses Foot pain, bilateral Procedures XR FOOT GENERAL 3V AP/LAT/OBL BILATERAL RADEX FOOT COMPLETE MINIMUM 3 VIEWS Noman Dean, DO [address] [place] [address] [place] [address] Referral ID Status Reason Start Date Expiration Date V isits Requested Visits Authorized [id number] Closed Auto-Generate d Referral 02/04/2024 03/05/2025 1 1 [facility] for referral (narrative)* Outpatient Procedure (Routine) - Closed Specialty Diagnoses / Procedures Referred By Contac t Referred To Contact [facility] Diagnoses Stage 2 moderate COPD by GOLD classification (HCC) Procedures SPIROMETRY BASELINE ONLY SPMTRY W/VC EXPIRATORY LUPILLO W/WO MXML VOL VNTJ Harriett Gregorio PA-C [address] [facility] [place] [address] Res[facility] [address] [place] [address] Referral ID Status Reason Start Date Expiration Date V isits Requested Visits Authorized [id number] Closed Auto-Generate d Referral 08/25/2024 09/24/2025 1 1 [facility] for referral (narrative)* Diagnostic Procedure Only (Routine) - Closed Specialty Diagnoses / Procedures Referred By Contac t Referred To Contact XR IMAGING Diagnoses Acute pain of left knee Procedures XR KNEE GENERAL 4V AP BOTH/PA BOTH/LAT/MERC LEFT RADIOLOGIC EXAM KNEE COMPLETE 4/MORE VIEWS Noman Dean DO [address] [place] [address] [place] [address] Referral ID Status Reason Start Date Expiration Date V isits Requested Visits Authorized [id number] Closed Auto-Generate d Referral 01/22/2022 02/21/2023 1 1 [facility] for referral (narrative)* Outpatient Procedure (Routine) - Authorized Specialty Diagnoses / Procedures Referred By Contac t Referred To Contact [facility] Diagnoses Essential hypertension, benign KNOX (dyspnea on exertion) LVH (left ventricular hypertrophy) Procedures ECHO ECHO TTHRC R-T 2D W/WOM-MODE COMPL SPEC&COLR D Noman Dean DO [address] [place] [address] [facility] [address] [place] [address] Referral ID Status Reason Start Date Expiration Date Visits Requested Visits Authorized [id number] Authorized Auto-Generat ed Referral 4 11/17/2025 1 1 [facility] for visit Narrative* Diagnostic Procedure Only (Routine) - Closed Specialty Diagnoses / Procedures Referred By Contac t Referred To Contact XR IMAGING Diagnoses Bilateral elbow joint pain Procedures XR ELBOW GENERAL 2V AP/LAT LEFT RADEX ELBOW 2 VIEWS Jersey Cole MD [address] [place] [address] Xr Imaging Referral ID Status Reason Start Date Expiration Date V isits Requested Visits Authorized [id number] Closed Auto-Generate d Referral 02/27/2022 03/29/2023 1 1 [facility] for visit Narrative* Diagnostic Procedure Only (Routine) - Closed Specialty Diagnoses / Procedures Referred By Contac t Referred To Contact MOLECULAR & FUNCTIONAL IMAGING Diagnoses Chest pain, unspecified type Procedures NM CARDIAC PERF STRESS/PHARM MYOCARDIAL SPECT MULTIPLE STUDIES Noman Dean, [address] [place] [address] Molecular & Functional Imaging [address] [place] [address] Referral ID Status Reason Start Date Expiration Date V isits Requested Visits Authorized [id number] Closed Auto-Generate d Referral 02/13/2022 03/15/2023 1 1 [facility] for visit Narrative* Outpatient Procedure (Routine) - Closed Specialty Diagnoses / Procedures Referred By Contac t Referred To Contact [facility] Diagnoses Abdominal pain, unspecified abdominal location Gastroesophageal reflux disease without esophagitis History of peptic ulcer disease Procedures EGD DIAGNOSTIC ESOPHAGOGASTRODUODENOSC OPY TRANSORAL DIAGNOSTIC Ny Rodriguez APRN.TRIAL COURT JUSTICE [address] [place] [address] [facility] [address] [place] [address] Referral ID Status Reason Start Date Expiration Date V isits Requested Visits Authorized [id number] Closed Auto-Generate d Referral 07/18/2022 07/18/2023 1 1 [facility] for visit Narrative* Diagnostic Procedure Only (Routine) - Closed Specialty Diagnoses / Procedures Referred By Contac t Referred To Contact XR IMAGING Diagnoses Foot pain, bilateral Procedures XR FOOT GENERAL 3V AP/LAT/OBL BILATERAL RADEX FOOT COMPLETE MINIMUM 3 VIEWS Noman Dean, DO [address] [place] [address] [place] [address] Referral ID Status Reason Start Date Expiration Date V isits Requested Visits Authorized [id number] Closed Auto-Generate d Referral 02/04/2024 03/05/2025 1 1 [facility] for visit Narrative* Diagnostic Procedure Only (Routine) - Closed Specialty Diagnoses / Procedures Referred By Contac t Referred To Contact XR IMAGING Diagnoses Acute pain of left knee Procedures XR KNEE GENERAL 4V AP BOTH/PA BOTH/LAT/MERC LEFT RADIOLOGIC EXAM KNEE COMPLETE 4/MORE VIEWS Noman Dean L, DO [address] [place] [address] [place] [address] Referral ID Status Reason Start Date Expiration Date V isits Requested Visits Authorized [id number] Closed Auto-Generate d Referral 01/22/2022 02/21/2023 1 1 [facility] Summary Purpose Family History No Family History Records Found Relationship Condition Age at Onset Recorded Date/T parker Unknown Family History?No pertinent history Unkno May 17, 2015 7:23am Family History?No pertinent history Unkno May 17, 2015 7:23am Relationship Condition Age at Onset Recorded Date/T parker mother Cardiac disease Unknown father Malignant neoplasm of prostate Unknown sister Malignant neoplasm of lung Unknown Advance Directives No Advanced Directives Records FoundDocuments on File Type Date Recorded 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 Advance Directive(s) 02/18/2022 12:18 PM [...] Documents on File Type Date Recorded 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 Advance Directive(s) 02/18/2022 12:18 PM [...] 3:28 PM Advance Directive(s) 02/05/2016 9:24 AM Advance Directive Response Recorded Date/ Time Advance Directives No May 03 1:27am Living Will No May 03, 2015 1 :27am Power of Rag Cutting Machine Operator No May 03, 2015 1:27am Advance Directive Response Recorded Date/ Time Advance Directives No May 03 1:27am Living Will No May 14, 2023 10:30am Power of Rag Cutting Machine Operator No May 14 10:30am Advance Directive Response Recorded Date/ Time Advance Directives No May 03 12:27am Living Will No January 07 10:29am Power of Rag Cutting Machine Operator No January 07, 2024 10:29am Advance Directive Response Recorded Date/ Time Advance Directives No May 03 1:27am Living Will No January 07 11:29am Power of Rag Cutting Machine Operator No January 07, 2024 11:29am Chief Complaint and Reason for Visit Chief Complaint ABD PAIN Chief Complaint Consult Reason for Visit Dysphagia Epigastric abdominal pain Chief Complaint 4 MO FU EPIGASTRIC PAIN Reason for Visit Chronic constipation Dysphagia Epigastric abdominal pain Chief Complaint 4 MO FU EPIGASTRIC PAIN BONE MARROW SMOLDERING MYELOMA BONE MARROW SMOLDERING MYELOMA Reason for Visit Chronic constipation Dysphagia Epigastric abdominal pain Smoldering myeloma Medications Administered Section Inactive Administered Medications - [...] ONE TIME INJECTION, 1 dose, Starting on Dayami 04/04/22 at 1002, Until Dayami 04/04/22 at 1002 [...] the event of a Fluress shortage, administer Cadiz-Fluor 1 drop into both eyes as directed [...] 0416, Preprocedure Restarted 08/13/2022 4:52 PM EDT New Bag/Syringe/Bottle 08/13/2022 4:37 PM EDT 30 mL/hr 3 0 mL/hr Reason for Referral Specialty Diagnoses / Procedures Referred By Marissa german Referred To Contact MR IMAGING Diagnoses Vitamin D deficiency Procedures MRI BRAIN WO/W IVCON MRI BRAIN BRAIN STEM W/O W/CONTRAST MATERIAL Mckenna Garcia PA-C [address] [place] [address] Mr Imaging Referral ID Status Reason Start Date Expiration Date V isits Requested Visits Authorized [id number] Closed Auto-Generate d Referral 02/15/2022 03/17/2023 1 1 Specialty Diagnoses / Procedures Referred By Marissa german Referred To Contact CT IMAGING Diagnoses Multiple sclerosis (HCC) Spontaneous bruising Fatigue, unspecified type Cervicalgia CML (chronic myeloid leukemia) (HCC) Procedures CT NECK SOFT TISSUE WO IVCON CT SOFT TISSUE NECK W/O CONTRAST MATERIAL Noman Dean, DO [address] [place] [address] Ct Imaging Referral ID Status Reason Start Date Expiration Date Visits Requested Visits Authorized [id number] Authorized Auto-Generat ed Referral 05/13/2022 06/12/2023 1 1 Specialty Diagnoses / Procedures Referred By Contac t Referred To Contact [facility] Diagnoses Multiple sclerosis (HCC) Fatigue, unspecified type Cervicalgia CML (chronic myeloid leukemia) (HCC) PAD (peripheral artery disease) (HCC) Bruit of right carotid artery Procedures US CAROTID ARTERIES APRIL VAS LAB DUPLEX SCAN EXTRACRANIAL ART COMPL BI STUDY Noman Dean, DO [address] [place] [address] [facility] [address] [place] [address] Referral ID Status Reason Start Date Expiration Date Visits Requested Visits Authorized [id number] Authorized Auto-Generat ed Referral 05/13/2022 05/13/2023 1 1 Referral ID Status Reason Start Date Expiration Date V isits Requested Visits Authorized [id number] Closed Auto-Generate d Referral 05/13/2022 06/12/2023 1 1 Specialty Diagnoses / Procedures Referred By Contac t Referred To Contact CT IMAGING Diagnoses Wheezing Tobacco use Procedures CT CHEST WO IVCON DIAGNOSTIC COMPUTED TOMOGRAPHY THORAX W/O CNTRST Noman Dean, DO [address] [place] [address] Ct Imaging Referral ID Status Reason Start Date Expiration Date Visits Requested Visits Authorized [id number] Authorized Auto-Generat ed Referral 12/12/2023 1 1 Specialty Diagnoses / Procedures Referred By Contac t Referred To Contact Gastroenterology Diagnoses Gastroesophageal reflux disease, unspecified whether esophagitis present Dysphagia, unspecified type Procedures CONSULT TO GASTROENTEROLOGY OFFICE/OUTPATIENT [facility] 60-74 MINUTES Harriett Gregorio PA-C [address] [place] [address] Referral ID Status Reason Start Date Expiration Date Visits Requested Visits Authorized [id number] Authorized PCP Requested Referral 12/25/2022 12/25/2023 1 1 Specialty Diagnoses / Procedures Referred By Contac t Referred To Contact [facility] Diagnoses Stage 2 moderate COPD by GOLD classification ([facility]) Abnormal CT scan, lung Procedures LUNG VOLUMES Harriett Gregorio PA-C [address] [place] [address] [address] Referral ID Status Reason Start Date Expiration Date Visits Requested Visits Authorized [id number] Authorized Auto-Generat ed Referral 12/25/2022 01/24/2024 1 1 Specialty Diagnoses / Procedures Referred By Contac t Referred To Contact [facility] Diagnoses Stage 2 moderate COPD by GOLD classification ([facility]) Abnormal CT scan, lung Procedures LUNG DIFFUSION CAPACITY (DLCO) DIFFUSING CAPACITY Harriett Gregorio PA-C [address] [place] [address] [address] Referral ID Status Reason Start Date Expiration Date Visits Requested Visits Authorized [id number] Authorized Auto-Generat ed Referral 12/25/2022 01/24/2024 1 1 Specialty Diagnoses / Procedures Referred By Contac t Referred To [facility] [employer] Diagnoses Stage 2 moderate COPD by GOLD classification ([facility]) Abnormal CT scan, lung Procedures SPIROMETRY BASELINE ONLY SPMTRY W/VC EXPIRATORY LUPILLO W/WO MXML VOL VNTJ Harriett Gregorio PA-C [address] [place] [address] [address] Referral ID Status Reason Start Date Expiration Date Visits Requested Visits Authorized [id number] Authorized Auto-Generat ed Referral 12/25/2022 01/24/2024 1 1 Specialty Diagnoses / Procedures Referred By Contac t Referred To [facility] Diagnoses Chest pain, unspecified type Dyspnea and respiratory abnormalities Procedures ECHO ECHO TTHRC R-T 2D W/WOM-MODE COMPL SPEC&COLR D Harriett Gregorio PA-C [address] [place] [address] [facility] [address] [address] Referral ID Status Reason Start Date Expiration Date Visits Requested Visits Authorized [id number] Authorized Auto-Generat ed Referral 12/25/2022 12/25/2023 1 1 Specialty Diagnoses / Procedures Referred By Contac t Referred To Contact Diagnoses Bilateral leg pain Multiple sclerosis (HCC) Noman Dean L, DO [address] [place] [address] Referral ID Status Reason Start Date Expiration Date Visits Re quested Visits Authorized [id number] Closed 1 1 Specialty Diagnoses / Procedures Referred By Contac t Referred To Contact Diagnoses Bilateral leg pain Multiple sclerosis (HCC) Edgar Longoria, SET UP PERSON.TRIAL COURT JUSTICE [address] [place] [address] Referral ID Status Reason Start Date Expiration Date Visits Re quested Visits Authorized [id number] Closed 1 1 Specialty Diagnoses / Procedures Referred By Contac t Referred To Contact Diagnoses Bilateral leg pain Multiple sclerosis (HCC) Maria Dolores Randall, SET UP PERSON.TRIAL COURT JUSTICE [address] [place] [address] Referral ID Status Reason Start Date Expiration Date Visits Re quested Visits Authorized [id number] Closed 1 1 Referral ID Status Reason Start Date Expiration Date Visits Re quested Visits Authorized [id number] Closed 1 1 Specialty Diagnoses / Procedures Referred By Contac t Referred To Contact CT IMAGING Diagnoses Wheezing Tobacco use Procedures CT CHEST WO IVCON DIAGNOSTIC COMPUTED TOMOGRAPHY THORAX W/O CNTRST Noman Dean L, DO [address] [place] [address] Ct Imaging [place] [address] Referral ID Status Reason Start Date Expiration Date V isits Requested Visits Authorized [id number] Closed Auto-Generate d Referral 11/12/2022 12/12/2023 1 1 Specialty Diagnoses / Procedures Referred By Contac t Referred To Contact MR IMAGING Diagnoses Multiple sclerosis (HCC) Procedures MRI BRAIN WO/W IVCON MRI BRAIN BRAIN STEM W/O W/CONTRAST MATERIAL Mckenna Garcia PA-C [address] [place] [address] Mr Imaging [place] [address] Referral ID Status Reason Start Date Expiration Date V isits Requested Visits Authorized [id number] Closed Auto-Generate d Referral 04/15/2022 05/15/2023 1 1 Referral ID Status Reason Start Date Expiration Date V isits Requested Visits Authorized [id number] Closed Auto-Generate d Referral 06/30/2024 07/30/2025 1 1 Specialty Diagnoses / Procedures Referred By Contac t Referred To Contact CT IMAGING Diagnoses Encounter for screening for lung cancer Tobacco use current Procedures CT LUNG SCREEN WO IVCON COMPUTED TOMOGRAPHY THORAX LW DOSE LNG CA SCR C- Jose Maria Dominguez, SET UP PERSON.TRIAL COURT JUSTICE [address] [place] [address] Ct Imaging [place] [address] Referral ID Status Reason Start Date Expiration Date Visits Requested Visits Authorized [id number] Authorized Auto-Generat ed Referral 10/01/2024 10/31/2025 1 1 Referral ID Status Reason Start Date Expiration Date Visits Requested Visits Authorized [id number] Authorized Auto-Generat ed Referral 11/10/2025 1 1 Additional Source Comments (unrecognized sect ion and content) No Status Records FoundNo Status Records FoundNo Status Records FoundNo Status Records FoundNo Status Records Found INFORMATION SOURCE (unrecogn ized section and content) DATE CREATED AUTHOR 02/03/2021 [facility] DATE CREATED AUTHOR AUTHOR'S ORGANIZ ATION 02/07/2021 [facility] DATE CREATED AUTHOR AUTHOR'S ORGANIZ ATION 10/31/2022 [facility] DATE CREATED AUTHOR AUTHOR'S ORGANIZ ATION 06/23/2024 [facility] DATE CREATED AUTHOR AUTHOR'S ORGANIZ ATION 04/27/2025 [facility] Source Comments (unrecognize d section and content) In the event this informatio n is protected by the Federal Confidentiality of Alcohol and Drug Abuse Patient Records regulations: The Federal rules restrict any use of the information to criminally investigate or prosecute any alcohol or drug abuse patient.[facility] the event this information is protected by the Federal Confidentiality of Alcohol and Drug Abuse Patient Records regulations: The Federal rules restrict any use of the information to criminally investigate or prosecute any alcohol or drug abuse patient.[facility] the event this information is protected by the Federal Confidentiality of Alcohol and Drug Abuse Patient Records regulations: The Federal rules restrict any use of the information to criminally investigate or prosecute any alcohol or drug abuse patient.[facility] the event this information is protected by the Federal Confidentiality of Alcohol and Drug Abuse Patient Records regulations: The Federal rules restrict any use of the information to criminally investigate or prosecute any alcohol or drug abuse patient.[facility] the event this information is protected by the Federal Confidentiality of Alcohol and Drug Abuse Patient Records regulations: The Federal rules restrict any use of the information to criminally investigate or prosecute any alcohol or drug abuse patient.[facility] the event this information is protected by the Federal Confidentiality of Alcohol and Drug Abuse Patient Records regulations: The Federal rules restrict any use of the information to criminally investigate or prosecute any alcohol or drug abuse patient.[facility] the event this information is protected by the Federal Confidentiality of Alcohol and Drug Abuse Patient Records regulations: The Federal rules restrict any use of the information to criminally investigate or prosecute any alcohol or drug abuse patient.[facility] the event this information is protected by the Federal Confidentiality of Alcohol and Drug Abuse Patient Records regulations: The Federal rules restrict any use of the information to criminally investigate or prosecute any alcohol or drug abuse patient.[facility] the event this information is protected by the Federal Confidentiality of Alcohol and Drug Abuse Patient Records regulations: The Federal rules restrict any use of the information to criminally investigate or prosecute any alcohol or drug abuse patient.[facility] the event this information is protected by the Federal Confidentiality of Alcohol and Drug Abuse Patient Records regulations: The Federal rules restrict any use of the information to criminally investigate or prosecute any alcohol or drug abuse patient.[facility] the event this information is protected by the Federal Confidentiality of Alcohol and Drug Abuse Patient Records regulations: The Federal rules restrict any use of the information to criminally investigate or prosecute any alcohol or drug abuse patient.[facility] the event this information is protected by the Federal Confidentiality of Alcohol and Drug Abuse Patient Records regulations: The Federal rules restrict any use of the information to criminally investigate or prosecute any alcohol or drug abuse patient.[facility] the event this information is protected by the Federal Confidentiality of Alcohol and Drug Abuse Patient Records regulations: The Federal rules restrict any use of the information to criminally investigate or prosecute any alcohol or drug abuse patient.[facility] the event this information is protected by the Federal Confidentiality of Alcohol and Drug Abuse Patient Records regulations: The Federal rules restrict any use of the information to criminally investigate or prosecute any alcohol or drug abuse patient.[facility] the event this information is protected by the Federal Confidentiality of Alcohol and Drug Abuse Patient Records regulations: The Federal rules restrict any use of the information to criminally investigate or prosecute any alcohol or drug abuse patient.[facility] the event this information is protected by the Federal Confidentiality of Alcohol and Drug Abuse Patient Records regulations: The Federal rules restrict any use of the information to criminally investigate or prosecute any alcohol or drug abuse patient.[facility] the event this information is protected by the Federal Confidentiality of Alcohol and Drug Abuse Patient Records regulations: The Federal rules restrict any use of the information to criminally investigate or prosecute any alcohol or drug abuse patient.[facility] the event this information is protected by the Federal Confidentiality of Alcohol and Drug Abuse Patient Records regulations: The Federal rules restrict any use of the information to criminally investigate or prosecute any alcohol or drug abuse patient.[facility] the event this information is protected by the Federal Confidentiality of Alcohol and Drug Abuse Patient Records regulations: The Federal rules restrict any use of the information to criminally investigate or prosecute any alcohol or drug abuse patient.[facility]In the event this information is protected by the Federal Confidentiality of Alcohol and Drug Abuse Patient Records regulations: The Federal rules restrict any use of the information to criminally investigate or prosecute any alcohol or drug abuse patient.[facility]In the event this information is protected by the Federal Confidentiality of Alcohol and Drug Abuse Patient Records regulations: The Federal rules restrict any use of the information to criminally investigate or prosecute any alcohol or drug abuse patient.[facility]In the event this information is protected by the Federal Confidentiality of Alcohol and Drug Abuse Patient Records regulations: The Federal rules restrict any use of the information to criminally investigate or prosecute any alcohol or drug abuse patient.[facility]In the event this information is protected by the Federal Confidentiality of Alcohol and Drug Abuse Patient Records regulations: The Federal rules restrict any use of the information to criminally investigate or prosecute any alcohol or drug abuse patient.[facility]In the event this information is protected by the Federal Confidentiality of Alcohol and Drug Abuse Patient Records regulations: The Federal rules restrict any use of the information to criminally investigate or prosecute any alcohol or drug abuse patient.[facility]In the event this information is protected by the Federal Confidentiality of Alcohol and Drug Abuse Patient Records regulations: The Federal rules restrict any use of the information to criminally investigate or prosecute any alcohol or drug abuse patient.[facility]In the event this information is protected by the Federal Confidentiality of Alcohol and Drug Abuse Patient Records regulations: The Federal rules restrict any use of the information to criminally investigate or prosecute any alcohol or drug abuse patient.[facility]In the event this information is protected by the Federal Confidentiality of Alcohol and Drug Abuse Patient Records regulations: The Federal rules restrict any use of the information to criminally investigate or prosecute any alcohol or drug abuse patient.[facility]In the event this information is protected by the Federal Confidentiality of Alcohol and Drug Abuse Patient Records regulations: The Federal rules restrict any use of the information to criminally investigate or prosecute any alcohol or drug abuse patient.[facility]In the event this information is protected by the Federal Confidentiality of Alcohol and Drug Abuse Patient Records regulations: The Federal rules restrict any use of the information to criminally investigate or prosecute any alcohol or drug abuse patient.[facility]In the event this information is protected by the Federal Confidentiality of Alcohol and Drug Abuse Patient Records regulations: The Federal rules restrict any use of the information to criminally investigate or prosecute any alcohol or drug abuse patient.[facility]In the event this information is protected by the Federal Confidentiality of Alcohol and Drug Abuse Patient Records regulations: The Federal rules restrict any use of the information to criminally investigate or prosecute any alcohol or drug abuse patient.[facility]In the event this information is protected by the Federal Confidentiality of Alcohol and Drug Abuse Patient Records regulations: The Federal rules restrict any use of the information to criminally investigate or prosecute any alcohol or drug abuse patient.[facility]In the event this information is protected by the Federal Confidentiality of Alcohol and Drug Abuse Patient Records regulations: The Federal rules restrict any use of the information to criminally investigate or prosecute any alcohol or drug abuse patient.[facility]In the event this information is protected by the Federal Confidentiality of Alcohol and Drug Abuse Patient Records regulations: The Federal rules restrict any use of the information to criminally investigate or prosecute any alcohol or drug abuse patient.[facility]In the event this information is protected by the Federal Confidentiality of Alcohol and Drug Abuse Patient Records regulations: The Federal rules restrict any use of the information to criminally investigate or prosecute any alcohol or drug abuse patient.[facility]In the event this information is protected by the Federal Confidentiality of Alcohol and Drug Abuse Patient Records regulations: The Federal rules restrict any use of the information to criminally investigate or prosecute any alcohol or drug abuse patient.[facility]In the event this information is protected by the Federal Confidentiality of Alcohol and Drug Abuse Patient Records regulations: The Federal rules restrict any use of the information to criminally investigate or prosecute any alcohol or drug abuse patient.[facility]In the event this information is protected by the Federal Confidentiality of Alcohol and Drug Abuse Patient Records regulations: The Federal rules restrict any use of the information to criminally investigate or prosecute any alcohol or drug abuse patient.[facility]In the event this information is protected by the Federal Confidentiality of Alcohol and Drug Abuse Patient Records regulations: The Federal rules restrict any use of the information to criminally investigate or prosecute any alcohol or drug abuse patient.[facility]In the event this information is protected by the Federal Confidentiality of Alcohol and Drug Abuse Patient Records regulations: The Federal rules restrict any use of the information to criminally investigate or prosecute any alcohol or drug abuse patient.[facility]In the event this information is protected by the Federal Confidentiality of Alcohol and Drug Abuse Patient Records regulations: The Federal rules restrict any use of the information to criminally investigate or prosecute any alcohol or drug abuse patient.[facility]In the event this information is protected by the Federal Confidentiality of Alcohol and Drug Abuse Patient Records regulations: The Federal rules restrict any use of the information to criminally investigate or prosecute any alcohol or drug abuse patient.[facility]In the event this information is protected by the Federal Confidentiality of Alcohol and Drug Abuse Patient Records regulations: The Federal rules restrict any use of the information to criminally investigate or prosecute any alcohol or drug abuse patient.[facility]In the event this information is protected by the Federal Confidentiality of Alcohol and Drug Abuse Patient Records regulations: The Federal rules restrict any use of the information to criminally investigate or prosecute any alcohol or drug abuse patient.[facility]In the event this information is protected by the Federal Confidentiality of Alcohol and Drug Abuse Patient Records regulations: The Federal rules restrict any use of the information to criminally investigate or prosecute any alcohol or drug abuse patient.[facility]In the event this information is protected by the Federal Confidentiality of Alcohol and Drug Abuse Patient Records regulations: The Federal rules restrict any use of the information to criminally investigate or prosecute any alcohol or drug abuse patient.[facility]In the event this information is protected by the Federal Confidentiality of Alcohol and Drug Abuse Patient Records regulations: The Federal rules restrict any use of the information to criminally investigate or prosecute any alcohol or drug abuse patient.[facility]In the event this information is protected by the Federal Confidentiality of Alcohol and Drug Abuse Patient Records regulations: The Federal rules restrict any use of the information to criminally investigate or prosecute any alcohol or drug abuse patient.[facility]In the event this information is protected by the Federal Confidentiality of Alcohol and Drug Abuse Patient Records regulations: The Federal rules restrict any use of the information to criminally investigate or prosecute any alcohol or drug abuse patient.[facility]In the event this information is protected by the Federal Confidentiality of Alcohol and Drug Abuse Patient Records regulations: The Federal rules restrict any use of the information to criminally investigate or prosecute any alcohol or drug abuse patient.[facility]In the event this information is protected by the Federal Confidentiality of Alcohol and Drug Abuse Patient Records regulations: The Federal rules restrict any use of the information to criminally investigate or prosecute any alcohol or drug abuse patient.[facility]In the event this information is protected by the Federal Confidentiality of Alcohol and Drug Abuse Patient Records regulations: The Federal rules restrict any use of the information to criminally investigate or prosecute any alcohol or drug abuse patient.[facility]In the event this information is protected by the Federal Confidentiality of Alcohol and Drug Abuse Patient Records regulations: The Federal rules restrict any use of the information to criminally investigate or prosecute any alcohol or drug abuse patient.[facility]In the event this information is protected by the Federal Confidentiality of Alcohol and Drug Abuse Patient Records regulations: The Federal rules restrict any use of the information to criminally investigate or prosecute any alcohol or drug abuse patient.[facility]In the event this information is protected by the Federal Confidentiality of Alcohol and Drug Abuse Patient Records regulations: The Federal rules restrict any use of the information to criminally investigate or prosecute any alcohol or drug abuse patient.[facility]In the event this information is protected by the Federal Confidentiality of Alcohol and Drug Abuse Patient Records regulations: The Federal rules restrict any use of the information to criminally investigate or prosecute any alcohol or drug abuse patient.[facility]In the event this information is protected by the Federal Confidentiality of Alcohol and Drug Abuse Patient Records regulations: The Federal rules restrict any use of the information to criminally investigate or prosecute any alcohol or drug abuse patient.[facility]In the event this information is protected by the Federal Confidentiality of Alcohol and Drug Abuse Patient Records regulations: The Federal rules restrict any use of the information to criminally investigate or prosecute any alcohol or drug abuse patient.[facility]In the event this information is protected by the Federal Confidentiality of Alcohol and Drug Abuse Patient Records regulations: The Federal rules restrict any use of the information to criminally investigate or prosecute any alcohol or drug abuse patient.[facility]In the event this information is protected by the Federal Confidentiality of Alcohol and Drug Abuse Patient Records regulations: The Federal rules restrict any use of the information to criminally investigate or prosecute any alcohol or drug abuse patient.[facility]In the event this information is protected by the Federal Confidentiality of Alcohol and Drug Abuse Patient Records regulations: The Federal rules restrict any use of the information to criminally investigate or prosecute any alcohol or drug abuse patient.[facility]In the event this information is protected by the Federal Confidentiality of Alcohol and Drug Abuse Patient Records regulations: The Federal rules restrict any use of the information to criminally investigate or prosecute any alcohol or drug abuse patient.[facility]In the event this information is protected by the Federal Confidentiality of Alcohol and Drug Abuse Patient Records regulations: The Federal rules restrict any use of the information to criminally investigate or prosecute any alcohol or drug abuse patient.[facility]In the event this information is protected by the Federal Confidentiality of Alcohol and Drug Abuse Patient Records regulations: The Federal rules restrict any use of the information to criminally investigate or prosecute any alcohol or drug abuse patient.[facility]In the event this information is protected by the Federal Confidentiality of Alcohol and Drug Abuse Patient Records regulations: The Federal rules restrict any use of the information to criminally investigate or prosecute any alcohol or drug abuse patient.[facility]In the event this information is protected by the Federal Confidentiality of Alcohol and Drug Abuse Patient Records regulations: The Federal rules restrict any use of the information to criminally investigate or prosecute any alcohol or drug abuse patient.[facility]In the event this information is protected by the Federal Confidentiality of Alcohol and Drug Abuse Patient Records regulations: The Federal rules restrict any use of the information to criminally investigate or prosecute any alcohol or drug abuse patient.[facility]In the event this information is protected by the Federal Confidentiality of Alcohol and Drug Abuse Patient Records regulations: The Federal rules restrict any use of the information to criminally investigate or prosecute any alcohol or drug abuse patient.[facility]In the event this information is protected by the Federal Confidentiality of Alcohol and Drug Abuse Patient Records regulations: The Federal rules restrict any use of the information to criminally investigate or prosecute any alcohol or drug abuse patient.[facility]In the event this information is protected by the Federal Confidentiality of Alcohol and Drug Abuse Patient Records regulations: The Federal rules restrict any use of the information to criminally investigate or prosecute any alcohol or drug abuse patient.[facility]In the event this information is protected by the Federal Confidentiality of Alcohol and Drug Abuse Patient Records regulations: The Federal rules restrict any use of the information to criminally investigate or prosecute any alcohol or drug abuse patient.[facility]In the event this information is protected by the Federal Confidentiality of Alcohol and Drug Abuse Patient Records regulations: The Federal rules restrict any use of the information to criminally investigate or prosecute any alcohol or drug abuse patient.[facility]In the event this information is protected by the Federal Confidentiality of Alcohol and Drug Abuse Patient Records regulations: The Federal rules restrict any use of the information to criminally investigate or prosecute any alcohol or drug abuse patient.[facility]In the event this information is protected by the Federal Confidentiality of Alcohol and Drug Abuse Patient Records regulations: The Federal rules restrict any use of the information to criminally investigate or prosecute any alcohol or drug abuse patient.[facility]In the event this information is protected by the Federal Confidentiality of Alcohol and Drug Abuse Patient Records regulations: The Federal rules restrict any use of the information to criminally investigate or prosecute any alcohol or drug abuse patient.[facility]In the event this information is protected by the Federal Confidentiality of Alcohol and Drug Abuse Patient Records regulations: The Federal rules restrict any use of the information to criminally investigate or prosecute any alcohol or drug abuse patient.[facility]In the event this information is protected by the Federal Confidentiality of Alcohol and Drug Abuse Patient Records regulations: The Federal rules restrict any use of the information to criminally investigate or prosecute any alcohol or drug abuse patient.[facility]In the event this information is protected by the Federal Confidentiality of Alcohol and Drug Abuse Patient Records regulations: The Federal rules restrict any use of the information to criminally investigate or prosecute any alcohol or drug abuse patient.[facility]In the event this information is protected by the Federal Confidentiality of Alcohol and Drug Abuse Patient Records regulations: The Federal rules restrict any use of the information to criminally investigate or prosecute any alcohol or drug abuse patient.[facility]In the event this information is protected by the Federal Confidentiality of Alcohol and Drug Abuse Patient Records regulations: The Federal rules restrict any use of the information to criminally investigate or prosecute any alcohol or drug abuse patient.[facility]In the event this information is protected by the Federal Confidentiality of Alcohol and Drug Abuse Patient Records regulations: The Federal rules restrict any use of the information to criminally investigate or prosecute any alcohol or drug abuse patient.[facility]In the event this information is protected by the Federal Confidentiality of Alcohol and Drug Abuse Patient Records regulations: The Federal rules restrict any use of the information to criminally investigate or prosecute any alcohol or drug abuse patient.[facility]In the event this information is protected by the Federal Confidentiality of Alcohol and Drug Abuse Patient Records regulations: The Federal rules restrict any use of the information to criminally investigate or prosecute any alcohol or drug abuse patient.[facility]In the event this information is protected by the Federal Confidentiality of Alcohol and Drug Abuse Patient Records regulations: The Federal rules restrict any use of the information to criminally investigate or prosecute any alcohol or drug abuse patient.[facility]In the event this information is protected by the Federal Confidentiality of Alcohol and Drug Abuse Patient Records regulations: The Federal rules restrict any use of the information to criminally investigate or prosecute any alcohol or drug abuse patient.[facility]In the event this information is protected by the Federal Confidentiality of Alcohol and Drug Abuse Patient Records regulations: The Federal rules restrict any use of the information to criminally investigate or prosecute any alcohol or drug abuse patient.[facility]In the event this information is protected by the Federal Confidentiality of Alcohol and Drug Abuse Patient Records regulations: The Federal rules restrict any use of the information to criminally investigate or prosecute any alcohol or drug abuse patient.[facility]In the event this information is protected by the Federal Confidentiality of Alcohol and Drug Abuse Patient Records regulations: The Federal rules restrict any use of the information to criminally investigate or prosecute any alcohol or drug abuse patient.[facility]In the event this information is protected by the Federal Confidentiality of Alcohol and Drug Abuse Patient Records regulations: The Federal rules restrict any use of the information to criminally investigate or prosecute any alcohol or drug abuse patient.[facility]In the event this information is protected by the Federal Confidentiality of Alcohol and Drug Abuse Patient Records regulations: The Federal rules restrict any use of the information to criminally investigate or prosecute any alcohol or drug abuse patient.[facility]In the event this information is protected by the Federal Confidentiality of Alcohol and Drug Abuse Patient Records regulations: The Federal rules restrict any use of the information to criminally investigate or prosecute any alcohol or drug abuse patient.[facility]In the event this information is protected by the Federal Confidentiality of Alcohol and Drug Abuse Patient Records regulations: The Federal rules restrict any use of the information to criminally investigate or prosecute any alcohol or drug abuse patient.[facility]In the event this information is protected by the Federal Confidentiality of Alcohol and Drug Abuse Patient Records regulations: The Federal rules restrict any use of the information to criminally investigate or prosecute any alcohol or drug abuse patient.[facility]In the event this information is protected by the Federal Confidentiality of Alcohol and Drug Abuse Patient Records regulations: The Federal rules restrict any use of the information to criminally investigate or prosecute any alcohol or drug abuse patient.[facility]In the event this information is protected by the Federal Confidentiality of Alcohol and Drug Abuse Patient Records regulations: The Federal rules restrict any use of the information to criminally investigate or prosecute any alcohol or drug abuse patient.[facility]In the event this information is protected by the Federal Confidentiality of Alcohol and Drug Abuse Patient Records regulations: The Federal rules restrict any use of the information to criminally investigate or prosecute any alcohol or drug abuse patient.[facility]In the event this information is protected by the Federal Confidentiality of Alcohol and Drug Abuse Patient Records regulations: The Federal rules restrict any use of the information to criminally investigate or prosecute any alcohol or drug abuse patient.[facility]In the event this information is protected by the Federal Confidentiality of Alcohol and Drug Abuse Patient Records regulations: The Federal rules restrict any use of the information to criminally investigate or prosecute any alcohol or drug abuse patient.[facility]In the event this information is protected by the Federal Confidentiality of Alcohol and Drug Abuse Patient Records regulations: The Federal rules restrict any use of the information to criminally investigate or prosecute any alcohol or drug abuse patient.[facility]In the event this information is protected by the Federal Confidentiality of Alcohol and Drug Abuse Patient Records regulations: The Federal rules restrict any use of the information to criminally investigate or prosecute any alcohol or drug abuse patient.[facility]In the event this information is protected by the Federal Confidentiality of Alcohol and Drug Abuse Patient Records regulations: The Federal rules restrict any use of the information to criminally investigate or prosecute any alcohol or drug abuse patient.[facility]In the event this information is protected by the Federal Confidentiality of Alcohol and Drug Abuse Patient Records regulations: The Federal rules restrict any use of the information to criminally investigate or prosecute any alcohol or drug abuse patient.[facility]In the event this information is protected by the Federal Confidentiality of Alcohol and Drug Abuse Patient Records regulations: The Federal rules restrict any use of the information to criminally investigate or prosecute any alcohol or drug abuse patient.[facility]In the event this information is protected by the Federal Confidentiality of Alcohol and Drug Abuse Patient Records regulations: The Federal rules restrict any use of the information to criminally investigate or prosecute any alcohol or drug abuse patient.[facility]In the event this information is protected by the Federal Confidentiality of Alcohol and Drug Abuse Patient Records regulations: The Federal rules restrict any use of the information to criminally investigate or prosecute any alcohol or drug abuse patient.[facility]In the event this information is protected by the Federal Confidentiality of Alcohol and Drug Abuse Patient Records regulations: The Federal rules restrict any use of the information to criminally investigate or prosecute any alcohol or drug abuse patient.[facility]In the event this information is protected by the Federal Confidentiality of Alcohol and Drug Abuse Patient Records regulations: The Federal rules restrict any use of the information to criminally investigate or prosecute any alcohol or drug abuse patient.[facility]In the event this information is protected by the Federal Confidentiality of Alcohol and Drug Abuse Patient Records regulations: The Federal rules restrict any use of the information to criminally investigate or prosecute any alcohol or drug abuse patient.[facility]In the event this information is protected by the Federal Confidentiality of Alcohol and Drug Abuse Patient Records regulations: The Federal rules restrict any use of the information to criminally investigate or prosecute any alcohol or drug abuse patient.[facility]In the event this information is protected by the Federal Confidentiality of Alcohol and Drug Abuse Patient Records regulations: The Federal rules restrict any use of the information to criminally investigate or prosecute any alcohol or drug abuse patient.[facility]In the event this information is protected by the Federal Confidentiality of Alcohol and Drug Abuse Patient Records regulations: The Federal rules restrict any use of the information to criminally investigate or prosecute any alcohol or drug abuse patient.[facility]In the event this information is protected by the Federal Confidentiality of Alcohol and Drug Abuse Patient Records regulations: The Federal rules restrict any use of the information to criminally investigate or prosecute any alcohol or drug abuse patient.[facility]In the event this information is protected by the Federal Confidentiality of Alcohol and Drug Abuse Patient Records regulations: The Federal rules restrict any use of the information to criminally investigate or prosecute any alcohol or drug abuse patient.[facility]In the event this information is protected by the Federal Confidentiality of Alcohol and Drug Abuse Patient Records regulations: The Federal rules restrict any use of the information to criminally investigate or prosecute any alcohol or drug abuse patient.[facility]In the event this information is protected by the Federal Confidentiality of Alcohol and Drug Abuse Patient Records regulations: The Federal rules restrict any use of the information to criminally investigate or prosecute any alcohol or drug abuse patient.[facility]In the event this information is protected by the Federal Confidentiality of Alcohol and Drug Abuse Patient Records regulations: The Federal rules restrict any use of the information to criminally investigate or prosecute any alcohol or drug abuse patient.[facility]In the event this information is protected by the Federal Confidentiality of Alcohol and Drug Abuse Patient Records regulations: The Federal rules restrict any use of the information to criminally investigate or prosecute any alcohol or drug abuse patient.[facility]In the event this information is protected by the Federal Confidentiality of Alcohol and Drug Abuse Patient Records regulations: The Federal rules restrict any use of the information to criminally investigate or prosecute any alcohol or drug abuse patient.[facility]In the event this information is protected by the Federal Confidentiality of Alcohol and Drug Abuse Patient Records regulations: The Federal rules restrict any use of the information to criminally investigate or prosecute any alcohol or drug abuse patient.[facility]In the event this information is protected by the Federal Confidentiality of Alcohol and Drug Abuse Patient Records regulations: The Federal rules restrict any use of the information to criminally investigate or prosecute any alcohol or drug abuse patient.[facility]In the event this information is protected by the Federal Confidentiality of Alcohol and Drug Abuse Patient Records regulations: The Federal rules restrict any use of the information to criminally investigate or prosecute any alcohol or drug abuse patient.[facility]In the event this information is protected by the Federal Confidentiality of Alcohol and Drug Abuse Patient Records regulations: The Federal rules restrict any use of the information to criminally investigate or prosecute any alcohol or drug abuse patient.[facility]In the event this information is protected by the Federal Confidentiality of Alcohol and Drug Abuse Patient Records regulations: The Federal rules restrict any use of the information to criminally investigate or prosecute any alcohol or drug abuse patient.[facility]In the event this information is protected by the Federal Confidentiality of Alcohol and Drug Abuse Patient Records regulations: The Federal rules restrict any use of the information to criminally investigate or prosecute any alcohol or drug abuse patient.[facility]In the event this information is protected by the Federal Confidentiality of Alcohol and Drug Abuse Patient Records regulations: The Federal rules restrict any use of the information to criminally investigate or prosecute any alcohol or drug abuse patient.[facility]In the event this information is protected by the Federal Confidentiality of Alcohol and Drug Abuse Patient Records regulations: The Federal rules restrict any use of the information to criminally investigate or prosecute any alcohol or drug abuse patient.[facility]In the event this information is protected by the Federal Confidentiality of Alcohol and Drug Abuse Patient Records regulations: The Federal rules restrict any use of the information to criminally investigate or prosecute any alcohol or drug abuse patient.[facility]In the event this information is protected by the Federal Confidentiality of Alcohol and Drug Abuse Patient Records regulations: The Federal rules restrict any use of the information to criminally investigate or prosecute any alcohol or drug abuse patient.[facility]In the event this information is protected by the Federal Confidentiality of Alcohol and Drug Abuse Patient Records regulations: The Federal rules restrict any use of the information to criminally investigate or prosecute any alcohol or drug abuse patient.[facility]In the event this information is protected by the Federal Confidentiality of Alcohol and Drug Abuse Patient Records regulations: The Federal rules restrict any use of the information to criminally investigate or prosecute any alcohol or drug abuse patient.[facility]In the event this information is protected by the Federal Confidentiality of Alcohol and Drug Abuse Patient Records regulations: The Federal rules restrict any use of the information to criminally investigate or prosecute any alcohol or drug abuse patient.[facility]In the event this information is protected by the Federal Confidentiality of Alcohol and Drug Abuse Patient Records regulations: The Federal rules restrict any use of the information to criminally investigate or prosecute any alcohol or drug abuse patient.[facility]In the event this information is protected by the Federal Confidentiality of Alcohol and Drug Abuse Patient Records regulations: The Federal rules restrict any use of the information to criminally investigate or prosecute any alcohol or drug abuse patient.[facility]In the event this information is protected by the Federal Confidentiality of Alcohol and Drug Abuse Patient Records regulations: The Federal rules restrict any use of the information to criminally investigate or prosecute any alcohol or drug abuse patient.[facility]In the event this information is protected by the Federal Confidentiality of Alcohol and Drug Abuse Patient Records regulations: The Federal rules restrict any use of the information to criminally investigate or prosecute any alcohol or drug abuse patient.[facility]In the event this information is protected by the Federal Confidentiality of Alcohol and Drug Abuse Patient Records regulations: The Federal rules restrict any use of the information to criminally investigate or prosecute any alcohol or drug abuse patient.[facility]In the event this information is protected by the Federal Confidentiality of Alcohol and Drug Abuse Patient Records regulations: The Federal rules restrict any use of the information to criminally investigate or prosecute any alcohol or drug abuse patient.[facility]In the event this information is protected by the Federal Confidentiality of Alcohol and Drug Abuse Patient Records regulations: The Federal rules restrict any use of the information to criminally investigate or prosecute any alcohol or drug abuse patient.[facility]In the event this information is protected by the Federal Confidentiality of Alcohol and Drug Abuse Patient Records regulations: The Federal rules restrict any use of the information to criminally investigate or prosecute any alcohol or drug abuse patient.[facility]In the event this information is protected by the Federal Confidentiality of Alcohol and Drug Abuse Patient Records regulations: The Federal rules restrict any use of the information to criminally investigate or prosecute any alcohol or drug abuse patient.[facility]In the event this information is protected by the Federal Confidentiality of Alcohol and Drug Abuse Patient Records regulations: The Federal rules restrict any use of the information to criminally investigate or prosecute any alcohol or drug abuse patient.[facility]In the event this information is protected by the Federal Confidentiality of Alcohol and Drug Abuse Patient Records regulations: The Federal rules restrict any use of the information to criminally investigate or prosecute any alcohol or drug abuse patient.[facility]In the event this information is protected by the Federal Confidentiality of Alcohol and Drug Abuse Patient Records regulations: The Federal rules restrict any use of the information to criminally investigate or prosecute any alcohol or drug abuse patient.[facility]In the event this information is protected by the Federal Confidentiality of Alcohol and Drug Abuse Patient Records regulations: The Federal rules restrict any use of the information to criminally investigate or prosecute any alcohol or drug abuse patient.[facility]In the event this information is protected by the Federal Confidentiality of Alcohol and Drug Abuse Patient Records regulations: The Federal rules restrict any use of the information to criminally investigate or prosecute any alcohol or drug abuse patient.[facility]In the event this information is protected by the Federal Confidentiality of Alcohol and Drug Abuse Patient Records regulations: The Federal rules restrict any use of the information to criminally investigate or prosecute any alcohol or drug abuse patient.[facility]In the event this information is protected by the Federal Confidentiality of Alcohol and Drug Abuse Patient Records regulations: The Federal rules restrict any use of the information to criminally investigate or prosecute any alcohol or drug abuse patient.[facility]In the event this information is protected by the Federal Confidentiality of Alcohol and Drug Abuse Patient Records regulations: The Federal rules restrict any use of the information to criminally investigate or prosecute any alcohol or drug abuse patient.[facility]In the event this information is protected by the Federal Confidentiality of Alcohol and Drug Abuse Patient Records regulations: The Federal rules restrict any use of the information to criminally investigate or prosecute any alcohol or drug abuse patient.[facility]In the event this information is protected by the Federal Confidentiality of Alcohol and Drug Abuse Patient Records regulations: The Federal rules restrict any use of the information to criminally investigate or prosecute any alcohol or drug abuse patient.[facility]In the event this information is protected by the Federal Confidentiality of Alcohol and Drug Abuse Patient Records regulations: The Federal rules restrict any use of the information to criminally investigate or prosecute any alcohol or drug abuse patient.[facility]In the event this information is protected by the Federal Confidentiality of Alcohol and Drug Abuse Patient Records regulations: The Federal rules restrict any use of the information to criminally investigate or prosecute any alcohol or drug abuse patient.[facility]In the event this information is protected by the Federal Confidentiality of Alcohol and Drug Abuse Patient Records regulations: The Federal rules restrict any use of the information to criminally investigate or prosecute any alcohol or drug abuse patient.[facility]In the event this information is protected by the Federal Confidentiality of Alcohol and Drug Abuse Patient Records regulations: The Federal rules restrict any use of the information to criminally investigate or prosecute any alcohol or drug abuse patient.[facility]In the event this information is protected by the Federal Confidentiality of Alcohol and Drug Abuse Patient Records regulations: The Federal rules restrict any use of the information to criminally investigate or prosecute any alcohol or drug abuse patient.[facility]In the event this information is protected by the Federal Confidentiality of Alcohol and Drug Abuse Patient Records regulations: The Federal rules restrict any use of the information to criminally investigate or prosecute any alcohol or drug abuse patient.[facility]In the event this information is protected by the Federal Confidentiality of Alcohol and Drug Abuse Patient Records regulations: The Federal rules restrict any use of the information to criminally investigate or prosecute any alcohol or drug abuse patient.[facility]In the event this information is protected by the Federal Confidentiality of Alcohol and Drug Abuse Patient Records regulations: The Federal rules restrict any use of the information to criminally investigate or prosecute any alcohol or drug abuse patient.[facility]In the event this information is protected by the Federal Confidentiality of Alcohol and Drug Abuse Patient Records regulations: The Federal rules restrict any use of the information to criminally investigate or prosecute any alcohol or drug abuse patient.[facility]In the event this information is protected by the Federal Confidentiality of Alcohol and Drug Abuse Patient Records regulations: The Federal rules restrict any use of the information to criminally investigate or prosecute any alcohol or drug abuse patient.[facility]In the event this information is protected by the Federal Confidentiality of Alcohol and Drug Abuse Patient Records regulations: The Federal rules restrict any use of the information to criminally investigate or prosecute any alcohol or drug abuse patient.[facility]In the event this information is protected by the Federal Confidentiality of Alcohol and Drug Abuse Patient Records regulations: The Federal rules restrict any use of the information to criminally investigate or prosecute any alcohol or drug abuse patient.[facility]In the event this information is protected by the Federal Confidentiality of Alcohol and Drug Abuse Patient Records regulations: The Federal rules restrict any use of the information to criminally investigate or prosecute any alcohol or drug abuse patient.[facility]In the event this information is protected by the Federal Confidentiality of Alcohol and Drug Abuse Patient Records regulations: The Federal rules restrict any use of the information to criminally investigate or prosecute any alcohol or drug abuse patient.[facility]In the event this information is protected by the Federal Confidentiality of Alcohol and Drug Abuse Patient Records regulations: The Federal rules restrict any use of the information to criminally investigate or prosecute any alcohol or drug abuse patient.[facility]In the event this information is protected by the Federal Confidentiality of Alcohol and Drug Abuse Patient Records regulations: The Federal rules restrict any use of the information to criminally investigate or prosecute any alcohol or drug abuse patient.[facility]In the event this information is protected by the Federal Confidentiality of Alcohol and Drug Abuse Patient Records regulations: The Federal rules restrict any use of the information to criminally investigate or prosecute any alcohol or drug abuse patient.[facility]In the event this information is protected by the Federal Confidentiality of Alcohol and Drug Abuse Patient Records regulations: The Federal rules restrict any use of the information to criminally investigate or prosecute any alcohol or drug abuse patient.[facility]In the event this information is protected by the Federal Confidentiality of Alcohol and Drug Abuse Patient Records regulations: The Federal rules restrict any use of the information to criminally investigate or prosecute any alcohol or drug abuse patient.[facility]In the event this information is protected by the Federal Confidentiality of Alcohol and Drug Abuse Patient Records regulations: The Federal rules restrict any use of the information to criminally investigate or prosecute any alcohol or drug abuse patient.[facility]In the event this information is protected by the Federal Confidentiality of Alcohol and Drug Abuse Patient Records regulations: The Federal rules restrict any use of the information to criminally investigate or prosecute any alcohol or drug abuse patient.[facility]In the event this information is protected by the Federal Confidentiality of Alcohol and Drug Abuse Patient Records regulations: The Federal rules restrict any use of the information to criminally investigate or prosecute any alcohol or drug abuse patient.[facility]In the event this information is protected by the Federal Confidentiality of Alcohol and Drug Abuse Patient Records regulations: The Federal rules restrict any use of the information to criminally investigate or prosecute any alcohol or drug abuse patient.[facility]In the event this information is protected by the Federal Confidentiality of Alcohol and Drug Abuse Patient Records regulations: The Federal rules restrict any use of the information to criminally investigate or prosecute any alcohol or drug abuse patient.[facility]In the event this information is protected by the Federal Confidentiality of Alcohol and Drug Abuse Patient Records regulations: The Federal rules restrict any use of the information to criminally investigate or prosecute any alcohol or drug abuse patient.[facility]In the event this information is protected by the Federal Confidentiality of Alcohol and Drug Abuse Patient Records regulations: The Federal rules restrict any use of the information to criminally investigate or prosecute any alcohol or drug abuse patient.[facility]In the event this information is protected by the Federal Confidentiality of Alcohol and Drug Abuse Patient Records regulations: The Federal rules restrict any use of the information to criminally investigate or prosecute any alcohol or drug abuse patient.[facility]In the event this information is protected by the Federal Confidentiality of Alcohol and Drug Abuse Patient Records regulations: The Federal rules restrict any use of the information to criminally investigate or prosecute any alcohol or drug abuse patient.[facility]In the event this information is protected by the Federal Confidentiality of Alcohol and Drug Abuse Patient Records regulations: The Federal rules restrict any use of the information to criminally investigate or prosecute any alcohol or drug abuse patient.[facility]In the event this information is protected by the Federal Confidentiality of Alcohol and Drug Abuse Patient Records regulations: The Federal rules restrict any use of the information to criminally investigate or prosecute any alcohol or drug abuse patient.[facility]In the event this information is protected by the Federal Confidentiality of Alcohol and Drug Abuse Patient Records regulations: The Federal rules restrict any use of the information to criminally investigate or prosecute any alcohol or drug abuse patient.[facility]In the event this information is protected by the Federal Confidentiality of Alcohol and Drug Abuse Patient Records regulations: The Federal rules restrict any use of the information to criminally investigate or prosecute any alcohol or drug abuse patient.[facility]In the event this information is protected by the Federal Confidentiality of Alcohol and Drug Abuse Patient Records regulations: The Federal rules restrict any use of the information to criminally investigate or prosecute any alcohol or drug abuse patient.[facility]In the event this information is protected by the Federal Confidentiality of Alcohol and Drug Abuse Patient Records regulations: The Federal rules restrict any use of the information to criminally investigate or prosecute any alcohol or drug abuse patient.[facility]In the event this information is protected by the Federal Confidentiality of Alcohol and Drug Abuse Patient Records regulations: The Federal rules restrict any use of the information to criminally investigate or prosecute any alcohol or drug abuse patient.[facility]In the event this information is protected by the Federal Confidentiality of Alcohol and Drug Abuse Patient Records regulations: The Federal rules restrict any use of the information to criminally investigate or prosecute any alcohol or drug abuse patient.[facility]In the event this information is protected by the Federal Confidentiality of Alcohol and Drug Abuse Patient Records regulations: The Federal rules restrict any use of the information to criminally investigate or prosecute any alcohol or drug abuse patient.[facility]In the event this information is protected by the Federal Confidentiality of Alcohol and Drug Abuse Patient Records regulations: The Federal rules restrict any use of the information to criminally investigate or prosecute any alcohol or drug abuse patient.[facility]In the event this information is protected by the Federal Confidentiality of Alcohol and Drug Abuse Patient Records regulations: The Federal rules restrict any use of the information to criminally investigate or prosecute any alcohol or drug abuse patient.[facility] the event this information is protected by the Federal Confidentiality of Alcohol and Drug Abuse Patient Records regulations: The Federal rules restrict any use of the information to criminally investigate or prosecute any alcohol or drug abuse patient.[facility]In the event this information is protected by the Federal Confidentiality of Alcohol and Drug Abuse Patient Records regulations: The Federal rules restrict any use of the information to criminally investigate or prosecute any alcohol or drug abuse patient.[facility]In the event this information is protected by the Federal Confidentiality of Alcohol and Drug Abuse Patient Records regulations: The Federal rules restrict any use of the information to criminally investigate or prosecute any alcohol or drug abuse patient.[facility]In the event this information is protected by the Federal Confidentiality of Alcohol and Drug Abuse Patient Records regulations: The Federal rules restrict any use of the information to criminally investigate or prosecute any alcohol or drug abuse patient.[facility]In the event this information is protected by the Federal Confidentiality of Alcohol and Drug Abuse Patient Records regulations: The Federal rules restrict any use of the information to criminally investigate or prosecute any alcohol or drug abuse patient.[facility]In the event this information is protected by the Federal Confidentiality of Alcohol and Drug Abuse Patient Records regulations: The Federal rules restrict any use of the information to criminally investigate or prosecute any alcohol or drug abuse patient.[facility]In the event this information is protected by the Federal Confidentiality of Alcohol and Drug Abuse Patient Records regulations: The Federal rules restrict any use of the information to criminally investigate or prosecute any alcohol or drug abuse patient.[facility]In the event this information is protected by the Federal Confidentiality of Alcohol and Drug Abuse Patient Records regulations: The Federal rules restrict any use of the information to criminally investigate or prosecute any alcohol or drug abuse patient.[facility]In the event this information is protected by the Federal Confidentiality of Alcohol and Drug Abuse Patient Records regulations: The Federal rules restrict any use of the information to criminally investigate or prosecute any alcohol or drug abuse patient.[facility]In the event this information is protected by the Federal Confidentiality of Alcohol and Drug Abuse Patient Records regulations: The Federal rules restrict any use of the information to criminally investigate or prosecute any alcohol or drug abuse patient.[facility]In the event this information is protected by the Federal Confidentiality of Alcohol and Drug Abuse Patient Records regulations: The Federal rules restrict any use of the information to criminally investigate or prosecute any alcohol or drug abuse patient.[facility]In the event this information is protected by the Federal Confidentiality of Alcohol and Drug Abuse Patient Records regulations: The Federal rules restrict any use of the information to criminally investigate or prosecute any alcohol or drug abuse patient.[facility] Care Teams (unrecognized sec tion and content) Investment Banking Analyst Relationship Specialty Start Date End Date Noman Dean, DO [address] [place] [address] PCP - General 12/19/14 Investment Banking Analyst Relationship Specialty Start Date End Date Noman Dean, DO [address] [place] [address] PCP - General 12/19/14 Investment Banking Analyst Relationship Specialty Start Date End Date Noman Dean, DO [address] [place] [address] PCP - General 12/19/14 Investment Banking Analyst Relationship Specialty Start Date End Date Noman Dean, DO [address] [place] [address] PCP - General 12/19/14 Investment Banking Analyst Relationship Specialty Start Date End Date Noman Dean, DO [address] [place] [address] PCP - General 12/19/14 Investment Banking Analyst Relationship Specialty Start Date End Date Noman Dean, DO [address] [place] [address] PCP - General 12/19/14 Investment Banking Analyst Relationship Specialty Start Date End Date Noman Dean, DO [address] [place] [address] PCP - General 12/19/14 Investment Banking Analyst Relationship Specialty Start Date End Date Noman Dean, DO [address] [place] [address] PCP - General 12/19/14 Investment Banking Analyst Relationship Specialty Start Date End Date Noman Dean, DO [address] [place] [address] PCP - General 12/19/14 Investment Banking Analyst Relationship Specialty Start Date End Date Noman Dean, DO [address] [place] [address] PCP - General 12/19/14 Investment Banking Analyst Relationship Specialty Start Date End Date Noman Dean, DO [address] [place] [address] PCP - General 12/19/14 Investment Banking Analyst Relationship Specialty Start Date End Date Noman Dean, DO [address] [place] [address] PCP - General 12/19/14 Investment Banking Analyst Relationship Specialty Start Date End Date Noman Dean, DO [address] [place] [address] PCP - General 12/19/14 Investment Banking Analyst Relationship Specialty Start Date End Date Noman Dean, DO [address] [place] [address] PCP - General 12/19/14 Investment Banking Analyst Relationship Specialty Start Date End Date Noman Dean, DO [address] [place] [address] PCP - General 12/19/14 Investment Banking Analyst Relationship Specialty Start Date End Date Noman Dean, DO [address] [place] [address] PCP - General 12/19/14 Investment Banking Analyst Relationship Specialty Start Date End Date Noman Dean, DO [address] [place] [address] PCP - General 12/19/14 Investment Banking Analyst Relationship Specialty Start Date End Date Noman Dean, DO [address] [place] [address] PCP - General 12/19/14 Investment Banking Analyst Relationship Specialty Start Date End Date Noman Dean, DO [address] [place] [address] PCP - General 12/19/14 Investment Banking Analyst Relationship Specialty Start Date End Date Noman Dean, DO [address] [place] [address] PCP - General 12/19/14 Investment Banking Analyst Relationship Specialty Start Date End Date Noman Dean, DO [address] [place] [address] PCP - General 12/19/14 Investment Banking Analyst Relationship Specialty Start Date End Date Noman Dean, DO [address] [place] [address] PCP - General 12/19/14 Investment Banking Analyst Relationship Specialty Start Date End Date Noman Dean, DO [address] [place] [address] PCP - General 12/19/14 Investment Banking Analyst Relationship Specialty Start Date End Date Noman Dean, DO [address] [place] [address] PCP - General 12/19/14 Investment Banking Analyst Relationship Specialty Start Date End Date Noman Dean, DO [address] [place] [address] PCP - General 12/19/14 Investment Banking Analyst Relationship Specialty Start Date End Date Noman Dean, DO [address] [place] [address] PCP - General 12/19/14 Investment Banking Analyst Relationship Specialty Start Date End Date Noman Dean, DO [address] [place] [address] PCP - General 12/19/14 Investment Banking Analyst Relationship Specialty Start Date End Date Noman Dean, DO [address] [place] [address] PCP - General 12/19/14 Investment Banking Analyst Relationship Specialty Start Date End Date Noman Dean, DO [address] [place] [address] PCP - General 12/19/14 Investment Banking Analyst Relationship Specialty Start Date End Date Noman Dean, DO [address] [place] [address] PCP - General 12/19/14 Investment Banking Analyst Relationship Specialty Start Date End Date Noman Dean, DO [address] [place] [address] PCP - General 12/19/14 Investment Banking Analyst Relationship Specialty Start Date End Date Noman Dean, DO [address] [place] [address] PCP - General 12/19/14 Investment Banking Analyst Relationship Specialty Start Date End Date Noman Dean, DO [address] [place] [address] PCP - General 12/19/14 Investment Banking Analyst Relationship Specialty Start Date End Date Noman Dean, DO [address] [place] [address] PCP - General 12/19/14 Investment Banking Analyst Relationship Specialty Start Date End Date Noman Daen, DO [address] [place] [address] PCP - General 12/19/14 Investment Banking Analyst Relationship Specialty Start Date End Date Noman Dean, DO [address] [place] [address] PCP - General 12/19/14 Investment Banking Analyst Relationship Specialty Start Date End Date Noman Dean, DO [address] [place] [address] PCP - General 12/19/14 Investment Banking Analyst Relationship Specialty Start Date End Date Noman Dean, DO [address] [place] [address] PCP - General 12/19/14 Investment Banking Analyst Relationship Specialty Start Date End Date Noman Dean, DO [address] [place] [address] PCP - General 12/19/14 Investment Banking Analyst Relationship Specialty Start Date End Date Noman Dean, DO [address] [place] [address] PCP - General 12/19/14 Otoniel Heaton, DO [address] [place] [address] Hematology/Oncology 12/17/22 Harriett Gregorio, PA-C [address] [place] [address] Pulmonary and Critical Care Medicine 12/17/22 Investment Banking Analyst Relationship Specialty Start Date End Date Noman Dean, DO [address] [place] [address] PCP - General 12/19/14 Otoniel Heaton, DO [address] [place] [address] Hematology/Oncology 12/17/22 Harriett Gregorio PA-C [address] [place] [address] Pulmonary and Critical Care Medicine 12/17/22 Investment Banking Analyst Relationship Specialty Start Date End Date Noman Dean, DO [address] [place] [address] PCP - General 12/19/14 Otoniel Heaton, DO [address] [place] [address] Hematology/Oncology 12/17/22 Harriett Gregorio, PA-C [address] [place] [address] Pulmonary and Critical Care Medicine 12/17/22 Investment Banking Analyst Relationship Specialty Start Date End Date Noman Dean, DO [address] [place] [address] PCP - General 12/19/14 Otoniel Heaton, DO [address] [place] [address] Hematology/Oncology 12/17/22 Harriett Gregoiro, PALoraC [address] [place] [address] Pulmonary and Critical Care Medicine 12/17/22 Investment Banking Analyst Relationship Specialty Start Date End Date Noman Dean, DO [address] [place] [address] PCP - General 12/19/14 Otoniel Heaton, DO [address] [place] [address] Hematology/Oncology 12/17/22 Harriett Gregorio, PA-C [address] [place] [address] Pulmonary and Critical Care Medicine 12/17/22 Investment Banking Analyst Relationship Specialty Start Date End Date Noman Dean, DO [address] [place] [address] PCP - General 12/19/14 Otoniel Heaton, DO [address] [place] [address] Hematology/Oncology 12/17/22 Harriett Gregorio PA-C [address] [place] [address] Pulmonary and Critical Care Medicine 12/17/22 Investment Banking Analyst Relationship Specialty Start Date End Date Noman Dean, DO [address] [place] [address] PCP - General 12/19/14 Otoniel Heaton, DO [address] [place] [address] Hematology/Oncology 12/17/22 Harriett Gergorio PA-C [address] [place] [address] Pulmonary and Critical Care Medicine 12/17/22 Investment Banking Analyst Relationship Specialty Start Date End Date Noman Dean, DO [address] [place] [address] PCP - General 12/19/14 Otoniel Heaton, DO [address] [place] [address] Hematology/Oncology 12/17/22 Harriett Gregorio PALoraC [address] [place] [address] Pulmonary and Critical Care Medicine 12/17/22 Investment Banking Analyst Relationship Specialty Start Date End Date Noman Dean, DO [address] [place] [address] PCP - General 12/19/14 Otoniel Heaton, DO [address] [place] [address] Hematology/Oncology 12/17/22 Harriett Gregorio PA-C [address] [place] [address] Pulmonary and Critical Care Medicine 12/17/22 Investment Banking Analyst Relationship Specialty Start Date End Date Noman Dean, DO [address] [place] [address] PCP - General 12/19/14 Otoniel Heaton, DO [address] [place] [address] Hematology/Oncology 12/17/22 Harriett Gregorio PA-C [address] [place] [address] Pulmonary and Critical Care Medicine 12/17/22 Investment Banking Analyst Relationship Specialty Start Date End Date Noman Dean, DO [address] [place] [address] PCP - General 12/19/14 Otoniel Heaton, DO [address] [place] [address] Hematology/Oncology 12/17/22 Harriett Gregorio PA-C [address] [place] [address] Pulmonary and Critical Care Medicine 12/17/22 Investment Banking Analyst Relationship Specialty Start Date End Date Noman Dean, DO [address] [place] [address] PCP - General 12/19/14 Otoniel Heaton, DO [address] [place] [address] Hematology/Oncology 12/17/22 Harriett Gregorio PA-C [address] [place] [address] Pulmonary and Critical Care Medicine 12/17/22 Investment Banking Analyst Relationship Specialty Start Date End Date Noman Dean, DO [address] [place] [address] PCP - General 12/19/14 Otoniel Heaton, DO [address] [place] [address] Hematology/Oncology 12/17/22 Harriett Gregorio PA-C [address] [place] [address] Pulmonary and Critical Care Medicine 12/17/22 Investment Banking Analyst Relationship Specialty Start Date End Date Noman Dean, DO [address] [place] [address] PCP - General 12/19/14 Otoniel Heaton, DO [address] [place] [address] Hematology/Oncology 12/17/22 Harriett Gregorio PA-C [address] [place] [address] Pulmonary and Critical Care Medicine 12/17/22 Investment Banking Analyst Relationship Specialty Start Date End Date Noman Dean, DO [address] [place] [address] PCP - General 12/19/14 Otoniel Heaton, DO [address] [place] [address] Hematology/Oncology 12/17/22 Harriett Gregorio PA-C [address] [place] [address] Pulmonary and Critical Care Medicine 12/17/22 Team Status: Active Member Role Status Dates Dr. Noman Dean , DO Family Provider Active Dr. Noman Dean , DO Primary Care Provider Active Team Status: Inactive Member Role Status Dates Dr. Noman Dean , DO Primary Care Provider, Referr ing Provider Active Rickey Colón BREAD WRAPPER OPERATOR, BREAD WRAPPER OPERATOR-C Attending Provider Active Team Status: Active Member Role Status Dates Dr. Noman Dean , DO Primary Care Provider, Referr ing Provider Active Dr. Charly Parada , DO Attending Provider, Other Prov ider Active Team Status: Inactive Member Role Status Dates Dr. Noman Dean , DO Primary Care Provider, Referr ing Provider Active Dr. Charly Parada , DO Attending Provider Active Investment Banking Analyst Relationship Specialty Start Date End Date Noman Dean, DO [address] [place] [address] PCP - General 12/19/14 Otoniel Heaton, DO [address] [place] [address] Hematology/Oncology 12/17/22 Harriett Gregorio PA-C [address] [place] [address] Pulmonary and Critical Care Medicine 12/17/22 Investment Banking Analyst Relationship Specialty Start Date End Date Noman Dean, DO [address] [place] [address] PCP - General 12/19/14 Otoniel Heaton, DO [address] [place] [address] Hematology/Oncology 12/17/22 Harriett Gergorio PA-C [address] [place] [address] Pulmonary and Critical Care Medicine 12/17/22 Ros Ayala RN Specialty Final Cleaner Oncology 05/30/23 Investment Banking Analyst Relationship Specialty Start Date End Date Noman Dean, DO [address] [place] [address] PCP - General 12/19/14 Otoniel Heaton, DO [address] [place] [address] Hematology/Oncology 12/17/22 Harriett Gregorio PA-C [address] [place] [address] Pulmonary and Critical Care Medicine 12/17/22 Ros Ayala RN Specialty Final Cleaner Oncology 05/30/23 Investment Banking Analyst Relationship Specialty Start Date End Date Noman Dean, DO [address] [place] [address] PCP - General 12/19/14 Otoniel Heaton, DO [address] [place] [address] Hematology/Oncology 12/17/22 Harriett Gregorio PA-C [address] [place] [address] Pulmonary and Critical Care Medicine 12/17/22 Ros Ayala RN Specialty Final Cleaner Oncology 05/30/23 Investment Banking Analyst Relationship Specialty Start Date End Date Noman Dean, [address] [place] [address] PCP - General 12/19/14 Otoniel Heaton, [address] [place] [address] Hematology/Oncology 12/17/22 Harriett Gregorio PA-C [address] [place] [address] Pulmonary and Critical Care Medicine 12/17/22 Ros Ayala RN Specialty Final Cleaner Oncology 05/30/23 Investment Banking Analyst Relationship Specialty Start Date End Date Noman Dean DO [address] [place] [address] PCP - General 12/19/14 Otoniel Heaton DO [address] [place] [address] Hematology/Oncology 12/17/22 Harriett Gregorio PA-C [address] [place] [address] Pulmonary and Critical Care Medicine 12/17/22 Ros Ayala RN Specialty Final Cleaner Oncology 05/30/23 Investment Banking Analyst Relationship Specialty Start Date End Date Noman Dean DO [address] [place] [address] PCP - General 12/19/14 Otoniel Heaton DO [address] [place] [address] Hematology/Oncology 12/17/22 Harriett Gregorio PA-C [address] [place] [address] Pulmonary and Critical Care Medicine 12/17/22 Ros Ayala RN Specialty Final Cleaner Oncology 05/30/23 Investment Banking Analyst Relationship Specialty Start Date End Date Noman Dean DO [address] [place] [address] PCP - General 12/19/14 Otoniel Heaton DO [address] [place] [address] Hematology/Oncology 12/17/22 Harriett Gregorio PA-C [address] [place] [address] Pulmonary and Critical Care Medicine 12/17/22 Ros Ayala RN Specialty Final Cleaner Oncology 05/30/23 Investment Banking Analyst Relationship Specialty Start Date End Date Noman Dean DO [address] [place] [address] PCP - General 12/19/14 Otoniel Heaton DO [address] [place] [address] Hematology/Oncology 12/17/22 Harriett Gregorio PA-C [address] [place] [address] Pulmonary and Critical Care Medicine 12/17/22 Ros Ayala RN Specialty Final Cleaner Oncology 05/30/23 Investment Banking Analyst Relationship Specialty Start Date End Date Noman Dean DO [address] [place] [address] PCP - General 12/19/14 Otoniel Heaton DO [address] [place] [address] Hematology/Oncology 12/17/22 Harriett Gregorio PA-C [address] [place] [address] Pulmonary and Critical Care Medicine 12/17/22 Ros Ayala RN Specialty Final Cleaner Oncology 05/30/23 Investment Banking Analyst Relationship Specialty Start Date End Date Noman Dean DO [address] [place] [address] PCP - General 12/19/14 Otoniel Heaton DO [address] [place] [address] Hematology/Oncology 12/17/22 Harriett Gregorio PA-C [address] [place] [address] Pulmonary and Critical Care Medicine 12/17/22 Ros Ayala RN Specialty Final Cleaner Oncology 05/30/23 Investment Banking Analyst Relationship Specialty Start Date End Date Noman Dean DO [address] [place] [address] PCP - General 12/19/14 Otoniel Heaton DO [address] [place] [address] Hematology/Oncology 12/17/22 Harriett Gregorio PA-C [address] [place] [address] Pulmonary and Critical Care Medicine 12/17/22 Ros Ayala RN Specialty Final Cleaner Oncology 05/30/23 Investment Banking Analyst Relationship Specialty Start Date End Date Noman Dean DO [address] [place] [address] PCP - General 12/19/14 Otoniel Heaton DO [address] [place] [address] Hematology/Oncology 12/17/22 Harriett Gregorio PA-C [address] [place] [address] Pulmonary and Critical Care Medicine 12/17/22 Ros Ayala RN Specialty Final Cleaner Oncology 05/30/23 Investment Banking Analyst Relationship Specialty Start Date End Date Noman Dean DO [address] [place] [address] PCP - General 12/19/14 Otoniel Heaton DO [address] [place] [address] Hematology/Oncology 12/17/22 Harriett Gregorio PA-C [address] [place] [address] Pulmonary and Critical Care Medicine 12/17/22 Ros Ayala RN Specialty Final Cleaner Oncology 05/30/23 Investment Banking Analyst Relationship Specialty Start Date End Date Noman Dean DO [address] [place] [address] PCP - General 12/19/14 Otoniel Heaton DO [address] [place] [address] Hematology/Oncology 12/17/22 Harriett Gregorio PA-C [address] [place] [address] Pulmonary and Critical Care Medicine 12/17/22 Ros Ayala RN Specialty Final Cleaner Oncology 05/30/23 Investment Banking Analyst Relationship Specialty Start Date End Date Noman Dean DO [address] [place] [address] PCP - General 12/19/14 Investment Banking Analyst Relationship Specialty Start Date End Date Noman Dean DO [address] [place] [address] PCP - General 12/19/14 Otoniel Heaton DO [address] [place] [address] Hematology/Oncology 12/17/22 Harriett Gregorio PA-C [address] [place] [address] Pulmonary and Critical Care Medicine 12/17/22 Investment Banking Analyst Relationship Specialty Start Date End Date Noman Dean DO [address] [place] [address] PCP - General 12/19/14 Otoniel Heaton DO [address] [place] [address] Hematology/Oncology 12/17/22 Harriett Gregorio PA-C [address] [place] [address] Pulmonary and Critical Care Medicine 12/17/22 Ros Ayala RN Specialty Final Cleaner Oncology 05/30/23 Investment Banking Analyst Relationship Specialty Start Date End Date Noman Dean DO [address] [place] [address] PCP - General 12/19/14 Otoniel Heaton DO [address] [place] [address] Hematology/Oncology 12/17/22 Harriett Gregorio, TERESITA-C [address] [place] [address] Pulmonary and Critical Care Medicine 12/17/22 Ros Ayala RN Specialty Final Cleaner Oncology 05/30/23 Investment Banking Analyst Relationship Specialty Start Date End Date Noman Dean DO [address] [place] [address] PCP - General 12/19/14 Otoniel Heaton DO [address] [place] [address] Hematology/Oncology 12/17/22 Harriett Gregorio, TERESITA-Marie [address] [place] [address] Pulmonary and Critical Care Medicine 12/17/22 Ros Ayala RN Specialty Final Cleaner Oncology 05/30/23 Investment Banking Analyst Relationship Specialty Start Date End Date Noman Dean DO [address] [place] [address] PCP - General 12/19/14 Otoniel Heaton DO [address] [place] [address] Hematology/Oncology 12/17/22 Harriett Gregorio PA-C [address] [place] [address] Pulmonary and Critical Care Medicine 12/17/22 Ros Ayala RN Specialty Final Cleaner Oncology 05/30/23 Investment Banking Analyst Relationship Specialty Start Date End Date Noman Dean DO [address] [place] [address] PCP - General 12/19/14 Otoniel Heaton DO [address] [place] [address] Hematology/Oncology 12/17/22 Harriett Gregorio PA-C [address] [place] [address] Pulmonary and Critical Care Medicine 12/17/22 Ros Ayala RN Specialty Final Cleaner Oncology 05/30/23 Team Status: Inactive Member Role Status Dates Dr. Noman Dean DO Primary Care Provider Active Dr. Charly Parada DO Attending Provider, Referring Provider Active Team Status: Active Member Role Status Dates Dr. Noman Dean DO Primary Care Provider, Referr ing Provider Active Dr. Charly Parada DO Attending Provider Active Investment Banking Analyst Relationship Specialty Start Date End Date Noman Dean DO [address] [place] [address] PCP - General 12/19/14 Otoniel Heaton DO [address] [place] [address] Hematology/Oncology 12/17/22 Harriett Gregorio PA-C [address] [place] [address] Pulmonary and Critical Care Medicine 12/17/22 Ros Ayala RN Specialty Final Cleaner Oncology 05/30/23 Investment Banking Analyst Relationship Specialty Start Date End Date Noman Dean DO [address] [place] [address] PCP - General 12/19/14 Otoniel Heaton DO [address] [place] [address] Hematology/Oncology 12/17/22 Harriett Gregorio PA-C [address] [place] [address] Pulmonary and Critical Care Medicine 12/17/22 Ros Ayala RN Specialty Final Cleaner Oncology 05/30/23 Investment Banking Analyst Relationship Specialty Start Date End Date Noman Dean DO [address] [place] [address] PCP - General 12/19/14 Otoniel Heaton DO [address] [place] [address] Hematology/Oncology 12/17/22 Harriett Gregorio PA-C [address] [place] [address] Pulmonary and Critical Care Medicine 12/17/22 Ros Ayala RN Specialty Final Cleaner Oncology 05/30/23 Investment Banking Analyst Relationship Specialty Start Date End Date Noman Dean DO [address] [place] [address] PCP - General 12/19/14 Otoniel Heaton DO [address] [place] [address] Hematology/Oncology 12/17/22 Harriett Gregorio PA-C [address] [place] [address] Pulmonary and Critical Care Medicine 12/17/22 Ros Ayala RN Specialty Final Cleaner Oncology 05/30/23 Investment Banking Analyst Relationship Specialty Start Date End Date Noman Dean DO [address] [place] [address] PCP - General 12/19/14 Otoniel Heaton DO [address] [place] [address] Hematology/Oncology 12/17/22 Harriett Gregorio PA-Marie [address] [place] [address] Pulmonary and Critical Care Medicine 12/17/22 Ros Ayala RN Specialty Final Cleaner Oncology 05/30/23 Team Status: Active Member Role Status Dates Dr. Noman Dean DO Primary Care Provider Active Dr. Otoniel Heaton DO Referring Provider, Other Provider Active Jade Olsen NP-C Attending Provider Active Team Status: Inactive Member Role Status Dates Dr. Noman Dean DO Primary Care Provider Active Dr. Otoniel Heaton DO Attending Provider, Referring Prov ider Active Investment Banking Analyst Relationship Specialty Start Date End Date Noman Dean DO [address] [place] [address] PCP - General 12/19/14 Otoniel Heaton DO [address] [place] [address] Hematology/Oncology 12/17/22 Harriett Gregorio PA-C [address] [place] [address] Pulmonary and Critical Care Medicine 12/17/22 Ros Ayala RN Specialty Final Cleaner Oncology 05/30/23 Investment Banking Analyst Relationship Specialty Start Date End Date Noman Dean DO [address] [address] PCP - General 12/19/14 Otoniel Heaton DO [address] [place] [address] Hematology/Oncology 12/17/22 Harriett Gregorio PA-C [address] [place] [address] Pulmonary and Critical Care Medicine 12/17/22 Ros Ayala RN Specialty Final Cleaner Oncology 05/30/23 Investment Banking Analyst Relationship Specialty Start Date End Date Noman Dean DO [address] [address] PCP - General 12/19/14 Otoniel Heaton DO [address] [place] [address] Hematology/Oncology 12/17/22 Harriett Gregorio PA-C [address] [place] [address] Pulmonary and Critical Care Medicine 12/17/22 Ros Ayala RN Specialty Final Cleaner Oncology 05/30/23 Investment Banking Analyst Relationship Specialty Start Date End Date Noman Dean DO [address] [place] [address] PCP - General 12/19/14 Otoniel Heaton DO [address] [place] [address] Hematology/Oncology 12/17/22 Harriett Gregorio PA-C [address] [place] [address] Pulmonary and Critical Care Medicine 12/17/22 Ros Ayala RN Specialty Final Cleaner Oncology 05/30/23 Investment Banking Analyst Relationship Specialty Start Date End Date Noman Dean DO [address] [place] [address] PCP - General 12/19/14 Otoniel Heaton DO [address] [place] [address] Hematology/Oncology 12/17/22 Harriett Gregorio PA-C [address] [place] [address] Pulmonary and Critical Care Medicine 12/17/22 Ros Ayala RN Specialty Final Cleaner Oncology 05/30/23 Investment Banking Analyst Relationship Specialty Start Date End Date Noman Dean DO [address] [place] [address] PCP - General 12/19/14 Otoniel Heaton DO [address] [place] [address] Hematology/Oncology 12/17/22 Harriett Gregorio PA-C [address] [place] [address] Pulmonary and Critical Care Medicine 12/17/22 Ros Ayala RN Specialty Final Cleaner Oncology 05/30/23 Investment Banking Analyst Relationship Specialty Start Date End Date Noman Dean DO [address] [place] [address] PCP - General 12/19/14 Otoniel Heaton DO [address] [place] [address] Hematology/Oncology 12/17/22 Harriett Gregorio PA-C [address] [place] [address] Pulmonary and Critical Care Medicine 12/17/22 Ros Ayala RN Specialty Final Cleaner Oncology 05/30/23 Investment Banking Analyst Relationship Specialty Start Date End Date Noman Dean DO [address] [address] PCP - General 12/19/14 Otoniel Heaton DO [address] [place] [address] Hematology/Oncology 12/17/22 Harriett Gregorio PA-C [address] [place] [address] Pulmonary and Critical Care Medicine 12/17/22 Ros Ayala RN Specialty Final Cleaner Oncology 05/30/23 Investment Banking Analyst Relationship Specialty Start Date End Date Noman Dean DO [address] [place] [address] PCP - General 12/19/14 Otoniel Heaton DO [address] [place] [address] Hematology/Oncology 12/17/22 Harriett Gregorio PA-C [address] [place] [address] Pulmonary and Critical Care Medicine 12/17/22 Ros Ayala RN Specialty Final Cleaner Oncology 05/30/23 Investment Banking Analyst Relationship Specialty Start Date End Date Noman Dean DO [address] [place] [address] PCP - General 12/19/14 Otoniel Heaton DO [address] [place] [address] Hematology/Oncology 12/17/22 Harriett Gregorio PA-C [address] [place] [address] Pulmonary and Critical Care Medicine 12/17/22 Ros Ayala RN Specialty Final Cleaner Oncology 05/30/23 Investment Banking Analyst Relationship Specialty Start Date End Date Noman Dean DO [address] [place] [address] PCP - General 12/19/14 Otoniel Heaton DO [address] [place] [address] Hematology/Oncology 12/17/22 Harriett Gregorio PA-C [address] [place] [address] Pulmonary and Critical Care Medicine 12/17/22 Ros Ayala RN Specialty Final Cleaner Oncology 05/30/23 Investment Banking Analyst Relationship Specialty Start Date End Date Noman Dean DO [address] [place] [address] PCP - General 12/19/14 Otoniel Heaton DO [address] [place] [address] Hematology/Oncology 12/17/22 Harriett Gregorio PA-C [address] [place] [address] Pulmonary and Critical Care Medicine 12/17/22 Ros Ayala RN Specialty Final Cleaner Oncology 05/30/23 Investment Banking Analyst Relationship Specialty Start Date End Date Noman Dean DO [address] [place] [address] PCP - General 12/19/14 Otoniel Heaton DO [address] [place] [address] Hematology/Oncology 12/17/22 Harriett Gregorio PA-C [address] [place] [address] Pulmonary and Critical Care Medicine 12/17/22 Ros Ayala RN Specialty Final Cleaner Oncology 05/30/23 Investment Banking Analyst Relationship Specialty Start Date End Date Noman Dean DO [address] [place] [address] PCP - General 12/19/14 Otoniel Heaton DO [address] [place] [address] Hematology/Oncology 12/17/22 Harriett Gregorio PA-C [address] [place] [address] Pulmonary and Critical Care Medicine 12/17/22 Ros Ayala RN Specialty Final Cleaner Oncology 05/30/23 Investment Banking Analyst Relationship Specialty Start Date End Date Noman Dean DO [address] [place] [address] PCP - General 12/19/14 Otoniel Heaton DO [address] [place] [address] Hematology/Oncology 12/17/22 Harriett Gregorio PA-C [address] [place] [address] Pulmonary and Critical Care Medicine 12/17/22 Ros Ayala RN Specialty Final Cleaner Oncology 05/30/23 Investment Banking Analyst Relationship Specialty Start Date End Date Noman Dean DO [address] [place] [address] PCP - General 12/19/14 Otoniel Heaton DO [address] [place] [address] Hematology/Oncology 12/17/22 Harriett Gregorio PA-C [address] [place] [address] Pulmonary and Critical Care Medicine 12/17/22 Ros Ayala RN Specialty Final Cleaner Oncology 05/30/23 Investment Banking Analyst Relationship Specialty Start Date End Date Noman Dean DO [address] [place] [address] PCP - General 12/19/14 Otoniel Heaton DO [address] [place] [address] Hematology/Oncology 12/17/22 Harriett Gregorio PA-C [address] [place] [address] Pulmonary and Critical Care Medicine 12/17/22 Ros Ayala RN Specialty Final Cleaner Oncology 05/30/23 Investment Banking Analyst Relationship Specialty Start Date End Date Noman Dean DO [address] [place] [address] PCP - General 12/19/14 Otoniel Heaton DO [address] [place] [address] Hematology/Oncology 12/17/22 Harriett Gregorio PA-C [address] [place] [address] Pulmonary and Critical Care Medicine 12/17/22 Ros Ayala RN Specialty Final Cleaner Oncology 05/30/23 Investment Banking Analyst Relationship Specialty Start Date End Date Noman Dean DO [address] [place] [address] PCP - General 12/19/14 Investment Banking Analyst Relationship Specialty Start Date End Date Noman Dean, [address] [place] [address] PCP - General 12/19/14 Investment Banking Analyst Relationship Specialty Start Date End Date Noman Dean, [address] [place] [address] PCP - General 12/19/14 Otoniel Heaton DO [address] [place] [address] Hematology/Oncology 12/17/22 Harriett Gregorio PA-C [address] [place] [address] Pulmonary and Critical Care Medicine 12/17/22 Ros Ayala RN Specialty Final Cleaner Oncology 05/30/23 Investment Banking Analyst Relationship Specialty Start Date End Date Noman Dean DO [address] [place] [address] PCP - General 12/19/14 Otoniel Heaton DO [address] [place] [address] Hematology/Oncology 12/17/22 Harriett Gregorio PA-C [address] [place] [address] Pulmonary and Critical Care Medicine 12/17/22 Ros Ayala RN Specialty Final Cleaner Oncology 05/30/23 Investment Banking Analyst Relationship Specialty Start Date End Date Noman Dean DO [address] [place] [address] PCP - General 12/19/14 Otoniel Heaton DO [address] [place] [address] Hematology/Oncology 12/17/22 Harriett Gregorio PA-C [address] [place] [address] Pulmonary and Critical Care Medicine 12/17/22 Ros Ayala RN Specialty Final Cleaner Oncology 05/30/23 Investment Banking Analyst Relationship Specialty Start Date End Date Noman Dean DO [address] [place] [address] PCP - General 12/19/14 Otoniel Heaton DO [address] [place] [address] Hematology/Oncology 12/17/22 Harriett Gregorio PA-C [address] [place] [address] Pulmonary and Critical Care Medicine 12/17/22 Ros Ayala RN Specialty Final Cleaner Oncology 05/30/23 Investment Banking Analyst Relationship Specialty Start Date End Date Noman Dean DO [address] [place] [address] PCP - General 12/19/14 Otoneil Heaton DO [address] [place] [address] Hematology/Oncology 12/17/22 Harriett Gregorio PA-C [address] [place] [address] Pulmonary and Critical Care Medicine 12/17/22 Ros Ayala RN Specialty Final Cleaner Oncology 05/30/23 Investment Banking Analyst Relationship Specialty Start Date End Date Noman Dean DO [address] [place] [address] PCP - General 12/19/14 Investment Banking Analyst Relationship Specialty Start Date End Date Noman Dean DO [address] [place] [address] PCP - General 12/19/14 Investment Banking Analyst Relationship Specialty Start Date End Date Noman Dean DO [address] [place] [address] PCP - General 12/19/14 Otoniel Heaton DO [address] [place] [facility] [place] [address] Hematology/Oncology 12/17/22 Harriett Gregorio PA-C [address] [place] [facility] [place] [address] Pulmonary and Critical Care Medicine 12/17/22 Ros Ayala RN Specialty Final Cleaner Oncology 05/30/23 Investment Banking Analyst Relationship Specialty Start Date End Date Noman Dean, [address] [place] [address] PCP - General 12/19/14 Otoniel Heaton DO [address] [place] [facility] [place] [address] Hematology/Oncology 12/17/22 Harriett Gregorio PA-C [address] [place] [address] Pulmonary and Critical Care Medicine 12/17/22 Ros Ayala RN Specialty Final Cleaner Oncology 05/30/23 Investment Banking Analyst Relationship Specialty Start Date End Date Noman Dean DO [address] [place] [address] PCP - General 12/19/14 Otoniel Heaton DO [address] [place] [address] Hematology/Oncology 12/17/22 Harriett Gregorio PA-C [address] [place] [address] Pulmonary and Critical Care Medicine 12/17/22 Ros Ayala RN Specialty Final Cleaner Oncology 05/30/23 Investment Banking Analyst Relationship Specialty Start Date End Date Noman Dean DO [address] [place] [address] PCP - General 12/19/14 Otoniel Heaton DO [address] [place] [address] Hematology/Oncology 12/17/22 Harriett Gregorio PA-C [address] [place] [address] Pulmonary and Critical Care Medicine 12/17/22 Ros Ayala RN Specialty Final Cleaner Oncology 05/30/23 Investment Banking Analyst Relationship Specialty Start Date End Date Noman Dean DO [address] [place] [address] PCP - General 12/19/14 Otoniel Heaton DO [address] [place] [address] Hematology/Oncology 12/17/22 Harriett Gregorio PA-C [address] [place] [address] Pulmonary and Critical Care Medicine 12/17/22 Ros Ayala RN Specialty Final Cleaner Oncology 05/30/23 Investment Banking Analyst Relationship Specialty Start Date End Date Noman Dean DO [address] [place] [address] PCP - General 12/19/14 Otoniel Heaton DO [address] [place] [address] Hematology/Oncology 12/17/22 Harriett Gregorio PA-C [address] [place] [address] Pulmonary and Critical Care Medicine 12/17/22 Ros Ayala RN Specialty Final Cleaner Oncology 05/30/23 Investment Banking Analyst Relationship Specialty Start Date End Date Noman Dean DO [address] [place] [address] PCP - General 12/19/14 Otoniel Heaton DO [address] [place] [address] Hematology/Oncology 12/17/22 Harriett Gregorio PA-C [address] [place] [address] Pulmonary and Critical Care Medicine 12/17/22 Ros Ayala RN Specialty Final Cleaner Oncology 05/30/23 Investment Banking Analyst Relationship Specialty Start Date End Date Noman Dean DO [address] [place] [address] PCP - General 12/19/14 Otoniel Heaton DO [address] [place] [address] Hematology/Oncology 12/17/22 Harriett Gregorio PA-C [address] [place] [address] Pulmonary and Critical Care Medicine 12/17/22 Ros Ayala RN Specialty Final Cleaner Oncology 05/30/23 Investment Banking Analyst Relationship Specialty Start Date End Date Noman Dean DO [address] [place] [address] PCP - General 12/19/14 Otoniel Heaton DO [address] [place] [address] Hematology/Oncology 12/17/22 Harriett Gregorio PA-C [address] [place] [address] Pulmonary and Critical Care Medicine 12/17/22 Ros Ayala RN Specialty Final Cleaner Oncology 05/30/23 Maria Dolores Randall, PRETTY.TRIAL COURT JUSTICE [address] [place] [address] [facility] 11/07/24 Edgar Longoria, SET UP PERSON.TRIAL COURT JUSTICE [address] [place] [address] [facility] 11/07/24 Investment Banking Analyst Relationship Specialty Start Date End Date Noman Dean DO [address] [place] [address] PCP - General 12/19/14 Otoniel Heaton DO [address] [place] [address] Hematology/Oncology 12/17/22 Harriett Gregorio PA-C [address] [place] [address] Pulmonary and Critical Care Medicine 12/17/22 Ros Ayala, RN Specialty Final Cleaner Oncology 05/30/23 Maria Dolores Randall, SET UP PERSON.TRIAL COURT JUSTICE [address] [place] [address] [facility] 11/07/24 [facility], SET UP PERSON.TRIAL COURT JUSTICE [address] [place] [address] [facility] 11/07/24 Investment Banking Analyst Relationship Specialty Start Date End Date Noman Dean DO [address] [place] [address] PCP - General 12/19/14 Otoniel Heaton DO [address] [place] [address] Hematology/Oncology 12/17/22 Harriett Gregorio PA-C [address] [facility] [place] [address] Pulmonary and Critical Care Medicine 12/17/22 Ros Ayala, LILI Specialty Final Cleaner Oncology 05/30/23 Maria Dolores Randall, PRETTY.TRIAL COURT JUSTICE [address] [place] [address] [facility] 11/07/[address] JUSTICE [address] [place] [address] [facility] 11/07/24 Investment Banking Analyst Relationship Specialty Start Date End Date Noman Dean DO [address] [place] [address] PCP - General 12/19/14 Otoniel Heaton DO [address] [facility] [place] [address] Hematology/Oncology 12/17/22 Harriett Gregorio PA-C [address] [facility] [place] [address] Pulmonary and Critical Care Medicine 12/17/22 Ros Ayala, LILI Specialty Final Cleaner Oncology 05/30/23 Maria Dolores Radnall, SET UP PERSON.TRIAL COURT JUSTICE [address] [place] [address] [facility] 11/07/24 Edgar Longoria, PRETTY.TRIAL COURT JUSTICE [address] [place] [address] [facility] 11/07/24 Investment Banking Analyst Relationship Specialty Start Date End Date Noman Dean DO [address] [place] [address] PCP - General 12/19/14 Otoniel Heaton DO [address] [place] [address] Hematology/Oncology 12/17/22 Harriett Gregorio PA-C [address] [place] [address] Pulmonary and Critical Care Medicine 12/17/22 Ros Ayala RN Specialty Final Cleaner Oncology 05/30/23 Maria Dolores Randall, SET UP PERSON.TRIAL COURT JUSTICE [address] [place] [address] [employer] Family [facility] 11/07/24 Edgar Longoria, SET UP PERSON.TRIAL COURT JUSTICE [address] [place] [address] [facility] 11/07/24 Investment Banking Analyst Relationship Specialty Start Date End Date Noman Dean DO [address] [place] [address] PCP - General 12/19/14 Otoniel Heaton DO [address] [place] [address] Hematology/Oncology 12/17/22 Harriett Gregorio PA-C [address] [place] [address] Pulmonary and Critical Care Medicine 12/17/22 Ros Ayala RN Specialty Final Cleaner Oncology 05/30/23 Maria Dolores Randall, PRETTY.TRIAL COURT JUSTICE [address] [place] [address] [facility] 11/07/[address] JUSTICE [address] [facility] [place] [address] [facility] 11/07/24 Investment Banking Analyst Relationship Specialty Start Date End Date Noman Dean DO [address] [place] [place] [address] PCP - General 12/19/14 Otoniel Heaton DO [address] [place] [address] Hematology/Oncology 12/17/22 Harriett Gregorio PA-C [address] [place] [address] Pulmonary and Critical Care Medicine 12/17/22 Ros Ayala RN Specialty Final Cleaner Oncology 05/30/23 Maria Dolores Randall, SET UP PERSON.TRIAL COURT JUSTICE [address] [facility] [place] [address] [facility] 11/07/24 BeatrizEdgar, SET UP PERSON.TRIAL COURT JUSTICE [address] [place] [address] [facility] 11/07/24 Investment Banking Analyst Relationship Specialty Start Date End Date Noman Dean DO [address] [facility] [place] [address] PCP - General 12/19/14 Otoniel Heaton DO [address] [place], [place] [address] Hematology/Oncology 12/17/22 Harriett Gregorio PA-C [address] [place], [place] [address] Pulmonary and Critical Care Medicine 12/17/22 Ros Ayala, RN Specialty Final Cleaner Oncology 05/30/23 Maria Dolores Randall, SET UP PERSON.TRIAL COURT JUSTICE [address] [facility] [place] [id number] [facility] 11/07/[address] JUSTICE [address] [facility] [place] [id number] [facility] 11/07/24 Reason for Visit (unrecogniz ed section and content) Reason Comments Radiology MRI Specialty Diagnoses / Procedures Referred By Marissa german Referred To Contact MR IMAGING Diagnoses Multiple sclerosis (HCC) Procedures MRI BRAIN WO/W IVCON MRI BRAIN BRAIN STEM W/O W/CONTRAST MATERIAL Mckenna Garcia PA-C [address] [place] [id number] Mr Imaging [place] [address] Referral ID Status Reason Start Date Expiration Date V isits Requested Visits Authorized [id number] Closed Auto-Generate d Referral 06/30/2024 07/30/2025 1 1 Reason Onset Date Comments Refill Request 02/25/2022 Reason Comments Results Reason Comments Follow Up Nail Fungus Reason Comments Patient Update Reason Comments Appointment Reason Onset Date Comments SPP Oral Oncology/hematology - Medication Refill 03/12/2022 Sprycel Reason Onset Date Comments Refill Request 03/12/2022 Reason Comments Calling about recent GI procedure result s Reason Onset Date Comments Refill Request 03/15/2022 Reason Comments New Pain Specialty Diagnoses / Procedures Referred By Marissa t Referred To Contact Orthopedics Diagnoses Bilateral elbow joint pain Lateral epicondylitis of both elbows Procedures CONSULT TO ORTHOPAEDICS OFFICE/OUTPATIENT [facility] MDM 60-74 MINUTES Noman eDan L, DO [address] [place] [address] Referral ID Status Reason Start Date Expiration Date V isits Requested Visits Authorized [id number] Closed PCP Requested Referral 02/13/2022 02/13/2023 1 1 Reason Comments Refill Request Reason Onset Date Comments SPP Oral Oncology/hematology - Medication Refill 04/08/2022 sprycel Reason Comments Radiology NM Specialty Diagnoses / Procedures Referred By Contac t Referred To Contact MR IMAGING Diagnoses Vitamin D deficiency Procedures MRI BRAIN WO/W IVCON MRI BRAIN BRAIN STEM W/O W/CONTRAST MATERIAL Mckenna Garcia PA-C [address] [place] [address] Mr Imaging Referral ID Status Reason Start Date Expiration Date V isits Requested Visits Authorized [id number] Closed Auto-Generate d Referral 02/15/2022 03/17/2023 1 [...] SOFT TISSUE NECK W/O CONTRAST MATERIAL Noman Dean, DO [address] [place] [address] Ct Imaging Referral ID Status Reason Start Date Expiration Date V isits Requested Visits Authorized [id number] Closed Auto-Generate d Referral 05/13/2022 06/12/2023 1 [...] Spirometry Specialty Diagnoses / Procedures Referred By [facility] Contact [facility] Diagnoses Stage 2 moderate COPD by GOLD classification ([facility]) Abnormal CT scan, lung Procedures LUNG DIFFUSION CAPACITY (DLCO) DIFFUSING CAPACITY Harriett Gregorio PA-C [address] [place] [address] Respiratory [facility] [address] [place] [address] Referral ID Status Reason Start Date Expiration Date V isits Requested Visits Authorized [id number] Closed Auto-Generate d Referral 12/25/2022 01/24/2024 1 1 Specialty Diagnoses / Procedures [facility] Diagnoses Stage 2 moderate COPD by GOLD classification ([facility]) Abnormal CT scan, lung Procedures LUNG VOLUMES Harriett Gregorio PA-C [address] [place] [address] [address] Referral ID Status Reason Start Date Expiration Date V isits Requested Visits Authorized [id number] Closed Auto-Generate d Referral 12/25/2022 01/24/2024 1 1 Specialty Diagnoses / Procedures Referred By Contac t Referred To Contact [facility] Diagnoses Stage 2 moderate COPD by GOLD classification ([facility]) Abnormal CT scan, lung Procedures SPIROMETRY BASELINE ONLY SPMTRY W/VC EXPIRATORY LUPILLO W/WO MXML VOL VNTJ Harriett Gregorio PA-C [address] [facility] [place] [address] [address] Referral ID Status Reason Start Date Expiration Date V isits Requested Visits Authorized [id number] Closed Auto-Generate d Referral 12/25/2022 01/24/2024 1 [...] Date Comments Refill Request 05/27/2023 Reason Comments 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 Reason Onset Date Comments Refill Request 07/25/2023 Reason Onset Date Comments SPP Oral Oncology/hematology - Medication Refill 08/19/2023 Scemblix 40mg. Reason Comments Appointment LVM FOR PATIENT TO C ALL SO WE CAN GET HIM SCHEDULED FOR A FOLLOW UP WITH MCKENNA GARCIA Reason Onset Date Comments Refill Request 09/15/2023 Reason Comments Established Patient 3 mo ov with labs Reason Comments Distress Assessment Reason Onset Date Comments Refill Request 09/23/2023 Specialty Diagnoses / Procedures Referred By Marissa german Referred To Contact CT IMAGING Diagnoses Wheezing Tobacco use Procedures CT CHEST WO IVCON DIAGNOSTIC COMPUTED TOMOGRAPHY THORAX W/O CNTRST Noman Dean L, DO [address] [place] [address] [place] [address] Referral ID Status Reason Start Date Expiration Date V isits Requested Visits Authorized [id number] Closed Auto-Generate d Referral 11/12/2022 12/12/2023 1 1 Referral ID Status Reason Start Date Expiration Date V isits Requested Visits Authorized [id number] Closed Auto-Generate d Referral 04/15/2022 05/15/2023 1 1 Reason Onset Date Comments [facility]PP Oral Oncology/hematology - Medication Refill 10/13/2023 [email or web address] Reason Onset Date Comments SPP Oral Oncology/hematology - Medication Refill 11/05/2023 Scemblix 40mg Reason Comments Derm Problem Mole removal back Reason Onset Date Comments SPP Oral Oncology/hematology - Medication Refill 01/02/2024 Scemblix Reason Onset Date Comments Refill Request 01/14/2024 Reason Onset Date Comments SPP Oral Oncology/hematology - Medication Refill 01/30/2024 Scemblix 40mg Reason Comments BMBX Orders Reason Onset Date Comments SPP Oral Oncology/hematology - Medication Refill 03/22/2024 Scemblix Reason Onset Date Comments Refill Request 03/24/2024 Reason Onset Date Comments Patient Request 03/24/2024 Reason Onset Date Comments Refill Request 03/29/2024 Reason Onset Date Comments Refill Request 04/17/2024 Reason Onset Date Comments SPP Oral Oncology/hematology - Medication Refill 04/22/2024 Scemblix Reason Onset Date Comments SPP Oral Oncology/hematology - Medication Refill 05/17/2024 Scemblix Reason Comments requesting a urine lab Reason Onset Date Comments SPP Oral Oncology/hematology - Medication Refill 06/15/2024 Scemblix Reason Onset Date Comments Refill Request 06/28/2024 Reason Comments Appointment Called to schedule M RI before next appointment with Mckenna Garcia Reason Onset Date Comments SPP Oral Oncology/hematology - Medication Refill 07/19/2024 Scemblix Reason Onset Date Comments Refill Request 07/20/2024 Reason Onset Date Comments Refill Request 08/10/2024 Reason Onset Date Comments SPP Oral Oncology/hematology - Medication Refill 08/16/2024 Scemblix 40 mg Reason Onset Date Comments F/U 3 Month Immunizations 08/18/2024 Flu vaccination Specialty Diagnoses / Procedures Referred By Marissa t Referred To Contact [facility] Diagnoses Stage 2 moderate COPD by GOLD classification (HCC) Procedures SPIROMETRY BASELINE ONLY SPMTRY W/VC EXPIRATORY LUPILLO W/WO MXML VOL VNTJ Harriett Gregorio, [place] [address] [place] [address] [facility] [address] [place] [address] Referral ID Status Reason Start Date Expiration Date V isits Requested Visits Authorized [id number] Closed Auto-Generate d Referral 08/25/2024 09/24/2025 1 1 Reason Comments Established Patient COPD Reason Comments 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 ) Reason Comments Med Change Request Reason Comments Established Patient Follow-Up Reason Onset Date Comments Refill Request 09/06/2024 Reason Onset Date Comments SPP Oral Oncology/hematology - Medication Refill 09/15/2024 Scemblix 40 mg Reason Comments Patient Question Orders Reason Comments Radiology CT Specialty Diagnoses / Procedures Referred By Marissa t Referred To Contact [facility] Diagnoses Encounter for screening for lung cancer Tobacco use current Procedures CT LUNG SCREEN WO IVCON COMPUTED TOMOGRAPHY THORAX LW DOSE LNG CA SCR Marie- Jose Maria Dominguez, SET UP PERSON.[facility] [address] [place] [address] [place] [address] Referral ID Status Reason Start Date Expiration Date V isits Requested Visits Authorized [id number] Closed Auto-Generate d Referral 10/01/2024 10/31/2025 1 1 Reason Comments Established Patient LCS Reason Onset Date Comments SPP Oral Oncology/hematology - Medication Refill 10/21/2024 Scemblix 40 mg Reason Comments Medication Request Reason Onset Date Comments SPP Oral Oncology/hematology - Medication Refill 11/18/2024 Scemblix 40mg Reason Onset Date Comments SPP Oral Oncology/hematology - Medication Refill 12/17/2024 Scemblix 40 mg Reason Comments Insurance Authorization Reason Onset Date Comments Population Health Navigation Outreach 02/10/2025 [employer] MYKEL RODRIGUEZA Reason Comments Medicare Wellness Exam Goals (unrecognized section and content) Goals may be documented in a n alternate section FOR RECORDS PERTAINING TO PATIENTS WHO ARE [...] BE BASED ON THE PRIMARY CLINICAL RECORDS. [employer] provides no warranty or guarantee of the accuracy or completeness of information in this document.
[2025-05-08 21:56] LABS: D-Dimer Quantitative (DVT/PE) 0.27 FEU/ug/m (0.27-0.49)
[2025-05-08 22:18] LABS: Anion Gap 13 (5-15); BUN 27 mg/dL (4-19); BUN/Creat Ratio 28.3 RATIO (10-20); Calcium,Total 9.6 mg/dL (7.6-11.0); Carbon Dioxide 21.6 mmol/L (21.0-32.0); Chloride 103 mmol/L (98-108); Creatinine, Serum 0.95 mg/dL (0.70-1.20); EST Glomerular Filtration Rate 95 (>60); Estimated Creatinine Clearance 106.17 ml/min (50-250); Glucose 109 mg/dL (70-99); Potassium 4.8 mmol/L (3.3-5.1); Sodium Level 138 mmol/L (133-145); Troponin T High Sensitivity 12 ng/L (<=22)
[2025-05-08 23:25] LABS: Troponin T High Sens 2 HR 11 ng/L (<=22)
[2025-05-09] VITALS: BP 106/80; PULSE 95; RESP 17; O2SAT 98
[2025-05-09 00:23] VITALS: BP 104/80; BP 84/67; PULSE 107; PULSE 97
[2025-05-09 00:30] VITALS: PULSE 100; RESP 17; O2SAT 98
[2025-05-09] MEDS: 0.9% Normal Saline (1000mL) 1,000 ML 999 ML IV (00:36)
[2025-05-09 01:00] VITALS: BP 106/85; BP 109/75; PULSE 89; PULSE 93; RESP 16; RESP 18; O2SAT 100; O2SAT 98
[2025-05-09 01:30] VITALS: BP 127/100; PULSE 94; RESP 18; O2SAT 98
[2025-05-09 01:39] LABS: Bacteria 0 SEEN /hpf (None Seen); Mucous, Urine 0 SEEN /hpf (<or=2+)
[2025-05-09 01:41] LABS: Color, Urine Yellow (Yellow); Glucose, Dipstick Normal (Normal); Ketone-Dipstick Negative (Negative); Leukocyte Esterase-Dipstick Negative /ul (Negative); Nitrite-Dipstick Negative (Negative); Occult Blood-Urine Negative /ul (Negative); Protein-Dipstick 15 mg/dl (Negative); Urine Bilirubin Dipstick Negative (Negative); Urine Clarity Clear (Clear); Urine Urobilinogen Normal (Normal)
[2025-05-09 01:50] VITALS: BP 110/83; PULSE 92; RESP 18; TEMP 36.8; O2SAT 99
[2025-05-09 02:03] LABS: Red Blood Cells-Urine 0-5 SEEN /hpf (0-5); Squamous Epithelial Cells - UA 0-5 SEEN /hpf (0-5); White Blood Cells 0-5 SEEN /hpf (0-5)
== END 2025-05-09 01:54 | disposition home or self-care (01) ==
PROVIDERS: Emergency Medicine; Emergency Provider Emergency Medicine; PCP Student in an Organized Health Care Education/Training Program; Visit Provider Emergency Medicine
DX: I95.1 Orthostatic hypotension (principal); J44.9 Chronic obstructive pulmonary disease, unspecified; E86.0 Dehydration; E78.00 Pure hypercholesterolemia, unspecified; I10 Essential (primary) hypertension; K21.9 Gastro-esophageal reflux disease without esophagitis; Z79.899 Other long term (current) drug therapy; Z79.51 Long term (current) use of inhaled steroids; F17.210 Nicotine dependence, cigarettes, uncomplicated
CPT/HCPCS: 80048; 81001; 84484; 85025; 85379; 93005; 96360; 96361; 99285; A4216